=== PATIENT | female | born 1980 | race Caucasian/White ===

== ENCOUNTER 2021-11-02 08:26 | Outpatient (CLI) | payer BC, MEDICAID, SELFPAY ==
[2021-11-02 08:34] LABS: Ur HCG Qualitative* Negative (Negative)
[2021-11-02 15:32] LABS: Clue Cells <20% Clue Cells Seen (None Seen); Trichomonas No Trichomonas Seen (None Seen); Yeast No Yeast Seen (None Seen)
--- OUTSIDE RECORDS SUMMARY | 2021-11-09 01:12 | XMS_ITS | Continuity of Care Document ---
:1980 Author Organization [facility] Address [address] [place] [address] Phone Care Team Providers Name Role Phone Will Audi AKERS Unavailable Unavailable Allergies, Adverse Reactions, Alerts Substance Reaction Status Criticality morphine Vomiting Active No Information latex BlisterRash Active No Information piroxicam Active No Information naproxen Active No Information Medications Medication Instructions Dosage Effective Dates Status Comment s (start - stop) Detrol LA 4 mg take 1 capsule by 4 MG - Active capsule,extended release oral route every day Seroquel 25 mg tablet take 1 tablet by 25 MG - Active oral route every day as needed duloxetine 30 mg take 1 capsule by 30 MG - Active capsule,delayed release oral route every day duloxetine 60 mg take 1 capsule by 60 MG - Active capsule,delayed release oral route every day Seroquel 300 mg tablet take 1 tablet by 300 MG - Active oral route every day meloxicam 15 mg tablet take 1 tablet by 15 MG - Active oral route 2 times every day gabapentin 600 mg tablet take 2 tablet by 1200 MG - Activ e oral route 3 times every day gemfibrozil 600 mg take 1 tablet by 600 MG - Active tablet oral route 2 times every day 30 minutes before morning and evening meal pantoprazole 40 mg take 1 tablet by 40 MG - Active tablet,delayed release oral route every day prochlorperazine maleate take 1 tablet by 10 MG - Activ e 10 mg tablet oral route 3 times every day naltrexone 50 mg tablet take 1 tablet by 50 MG - Active oral route every day spironolactone 50 mg take 1 tablet by 50 MG - Active tablet oral route every day prazosin 1 mg capsule take 2 capsule by 2 MG - Active oral route every day Mirena 20 mcg/24 hours - Active (6 yrs) 52 mg intrauterine device Procedures Procedure Date OFFICE/OUTPATIENT VISIT, EST OFFICE/OUTPATIENT VISIT, NEW Advance Directives Directive Yes / No Effective Date File Name No Information Encounters Encounter Practice Location Reason(s) Diagnoses Date Provider Provide rs Description For Visit Copied on Encounter [facility] No Information [facility] Audi. Pain [place] [address] [facility], [place], [address] [facility] [place], [place], [place], [place], [id number] [place], , [place]. [id number] tel: , [place] [phone] tel: [phone] OFFICE/OUTPA [facility] Back Pain FibromyalgiaOther Sep-2 OBr ien Referring TIENT VISIT, [facility] (chief intervertebral disc Tra vis. Provider: EST [facility] [place] complaint) displacement, [address] [facility], [place], [facility], lumbar [place], Will J, [address] [facility] [address] [facility] [place], disorder, [place], [place], [place], [place], unspecifiedAlcohol [phone] [place], abuse, [place] , [place]. [place], [place], [id number] remissionOther long tel: [phone] , [place] term (current) drug [id number] . tel: therapy tel:[phone] [facility] No Information Sep- Burd[facility] Josh. [facility] [place] [address] [facility], [place], [address] [facility] [place], [place], [place], [place], [id number] [place], , [place]. [id number] tel: , [place] [phone] tel: [phone] OFFICE/OUTPA [facility] Back Pain FibromyalgiaOther Sep-0 OBr ien Referring TIENT VISIT, [facility] (chief intervertebral disc Tra vis. Provider: NEW [facility] [place] complaint) displacement, 1 [address] [facility], [place], [facility] by [facility], lumbar [place], Will J, [address] [facility] [place] [address] [facility] [place], disorder, [place], [place], [place], [place], unspecifiedAlcohol [phone] [place], abuse, [place] , [place]. [place], [place], [phone] remissionOther long tel: [phone] , term (current) drug [id number] . tel: therapy tel: [phone] Family History Family Member Type Diagnosis Age At Onset Mother Problem Bulging discs/back surgery Payers Payer name Insurance type Covered libertarian ID Authorization(s ) [facility] [id number] Social History Type Description Quantity Date Captured Comments Sex Female Smoking Status No Information Chief Complaint And Reason For Visit No Information Reason For Referral Reason For Referral No Information Plan Of Treatment Date Type Action Status Goal Height. Due on due Goal Review Allergy List. Due on due Goal Tobacco Use. Due on due Goal PHQ-9. Due on due Goal Weight. Due on due Goal Medication Reconciliation. Due o n due Goal Update Social History. Due on due Goal Height. Due on due Goal Review Allergy List. Due on due Goal Tobacco Use. Due on due Goal PHQ-9. Due on due Goal Weight. Due on due Goal Medication Reconciliation. Due o n due Goal Update Social History. Due on due Goal Height. Due on due Goal Review Allergy List. Due on due Goal Tobacco Use. Due on due Goal PHQ-9. Due on due Goal Weight. Due on due Goal Medication Reconciliation. Due o n due Goal Update Social History. Due on Se due History Of Present Illness Encounter Date Complaint History Of Present I llness Back Pain (comments) Mrs. Plummer is a p leasant 40 y/o female who presents for follow up after initial consult regarding chronic wi despread pain in the setting of a complex psychia tric hx that includes bipolar, depression, BPD, and PTSD with multiple suicide attempts. Sh jonah also has a hx of EtOH abuse, but has been sober since most recent inpatient treatment 6 months ago. She states that her pain is worse si nce last OV as she increases her activity at PT. She details that she goes to PT 2x/week. She cont inues to experience low back pain radiating down the posterior left thigh to the foot. She contin ues to endorse some possible incontinence symptom s, but MRI recently completed does not show any ev idence of cauda equina syndrome. Continues to utilize skin care specialist. She is interested in pursuing any treatment option that can hel p ease some of the painShe states she previousl y consulted with rheumatology but did not have a g ood experience. She reports she has previously b jaironn advised to complete the pain rehab program a t [facility] by another provider.She details she continues to be managed on Duloxetine and co ntinues to wean off Gabapentin d/t fatig ue. Continues to take meloxicam despite he r hx of ulcers. She also inquires about any m edication suggestions to help with sleeping at [facility].No other concerns today. Back Pain Severity level is 9. The problem is stable. It occurs persistently. The patient describes the pain as an ache, bur ranjit, sharp and tingling. Symptoms are aggrava blanca by ascending stairs, bending, changing po sitions, daily activities, descending stairs, j umping, lifting, lying/rest, pushing, running, si tting, standing, twisting, walking and movement .The patient denies relieving factors. Back Pain Severity level is 9. Duration: chronic. The problem is worsening . It occurs persistently. Location of pain is lower back and legs.The patient describes th e pain as an ache, sharp, throbbing and tingli ng. Symptoms are aggravated by bending, daily ac tivities, lifting, running, standing, twisting a nd walking.The patient denies relieving factors. Back Pain (comments) Mrs. Plummer is a p leasant 40 y/o female who presents for chronic widespread pain in the setting of a complex psychiatric hx that includes bipolar, depression, BPD, and PTSD with multiple suicide attempts. e also has a hx of EtOH abuse, but has been sober since most recent inpatient treatment 6 months ago. Describes a long hx of chronic p ain dating back to a JRA dx as a child, which le d to a left ankle fusion in 1999. She no longer follows w/rheumatology. Also has a hx of gastric ulcers e/b alcohol and NSAID use. Over the years, the pain spread to include joints throughout e body. She is s/p many steroid injections i n the knees, hips, and ankles w/variable benefit. More recently, she began to have low back pain r adiating down the posterior thigh to the left fo ot. Describes some possible incontinence symptom s, although she reportedly had an MRI in July that was reassuring (report not available). She starts PT this week. Currently doing chir opractic care and uses a jacuzzi at home. Cer tified for cannabis, but too expensive.She was ho nest about her alcohol issues. Started ramez gomez to self medicate for pain. S/p 3 inpatien t hospitalizations, most recently in July. C urrently on duloxetine. Weaning gabapentin d /t fatigue. Taking meloxicam despite her hx of ul cers. Functional Status Date Functional Assessment No Information Instructions Date Instruction Additional Informati on No Information Assessments Type Assessment Date No Information Patient Care Teams Name Effective Dates (start - stop) Status M embers No Information
--- OUTSIDE RECORDS SUMMARY | 2021-11-09 01:12 | XMS_ITS | Continuity of Care Document ---
:1980 Author Organization [facility] Address [address] [address] [place] [address] Phone Care Team Providers Name Role Phone Bridgette Santa Unavailable Unavailable Allergies, Adverse Reactions, Alerts Substance Reaction Status Criticality naproxen HivesHives Active No Information adhesive tape Rash Active No Information naproxen HivesHives Active No Information morphine Active No Information latex Active No Information naproxen Active No Information Medications Medication Instructions Dosage Effective Dates Status Comment s (start - stop) pantoprazole 40 mg take 1 tablet by 40 MG - Active tablet,delayed release oral route 2 times every day naltrexone 50 mg tablet take 1 tablet by 50 MG - Act flor oral route every day tizanidine 4 mg capsule take 1 capsule by 4 MG - Ac tive oral route every day as needed propranolol 10 mg tablet take 2 tablet by 20 MG - Ac tive oral route 3 times every day meloxicam 15 mg tablet take 1 tablet by 15 MG - Acti ve oral route every day Drizalma Sprinkle 60 mg take 1 capsule by 60 MG - Ac tive capsule,delayed release oral route every day spironolactone 100 mg take 1 tablet by 100 MG - Activ e tablet oral route every day Lyrica 150 mg capsule take 1 capsule by 150 MG - Acti ve oral route 2 times every day Lamictal 25 mg tablet take 1 tablet by 25 MG - Activ e oral route 2 times every day gemfibrozil 600 mg tablet take 1 tablet by 600 MG - A ctive oral route 2 times every day 30 minutes before morning and evening meal prochlorperazine maleate take 1 tablet by 10 MG - Ac tive 10 mg tablet oral route every day as needed Risperdal 2 mg tablet take 1 tablet by 2 MG - Activ e oral route 2 times every day Enbrel 25 mg (1 mL) inject 1 milliliter 25 MG - Acti ve subcutaneous powder for by subcutaneous solution route 2 times every week 72-96 hours apart famotidine 20 mg tablet take 1 tablet by - Act flor oral route 2 times a day as needed gemfibrozil 600 mg tablet take 1 tablet by 600 MG - A ctive oral route 2 times every day 30 minutes before morning and evening meal Procedures Procedure Date Established Level 4 Ugi Endo; W/bx 1/mx Level Iv-surg Path Gross/micro Established Level 3 or 15-24 min Colonoscopy Flex; W/remov Les- Colonoscopy Flex; W/bx 1/mx Level Iv-surg Path Gross/micro Established Level 3 or 15-24 min Ugi Endo; W/bx 1/mx Level Iv-surg Path Gross/micro New Level 3 or 30-44 min Advance Directives Directive Yes / No Effective Date File Name No Information Encounters Encounter Practice Location Reason(s) Diagnoses Date Provider Provide rs Description For Visit Copied on Encounter CHRIS Ba No Information Gregory PAC [facility] Bridgette. [facility] [facility] 2 [facility], [address], [place] [address], [facility] [place], , [place], [place], [id number], [id number], [place]. tel:[phone] tel:[phone] Established [facility] Acute [place] [facility] Referrin g Level 4 [facility] [place] Symptoms diarrheaGERD Bridgette. 3001 Provi amarilis: Health PA, Clinic or without 2 [place] Referral [address] [place]. [address], (chief [place] [address], [place] complaint) [place], [place], [place], [id number], [id number], [place]. tel: tel:[phone] 1145 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 3001 Provider: Health PA, Endoscopy 2 [facility] [address] [place], [place], [address], [place] [address], [place] [facility] [place], [place], [place], [address], [id number], [id number], [place], [place], tel:+ tel:[phone] . tel:[phone] [facility] GI Gastritis Mar-0 Alexa Calloway. Referri ng Dig[facility] Symptoms determined by 3001 [facility] rovider: Health PA, Endoscopy or endoscopyGastri [address] [place], Willy [address] [place] [facility] Concerns tis, [address], [place] [address], (chief unspecified, [place] Leopoldo, [address] [place] complaint) without [place], [address], [place], [place], bleeding [id number], [place] [id number], [place]. , [place], [place] tel:[phone]. tel:[phone] tel:[phone] [id number] [facility] No Information Mar-0 [facility] o PA Kristel. [facility], [address] [place], [address], [place] [address], [place], , [place], [place], [id number], [id number], [place]. tel: tel:[phone] [facility] Gastroesophagea Mar-0 [facility] l reflux Bridgette. 3001 Health PA, disease, 2 [place] [address] [place], [address], whether [address], [place] esophagitis [place], [place], [place], [place], [id number], [id number], [place]. tel: tel:[phone] [facility] [place] Diarrhea, Fe- oJy [facility] unspecified 3 Omar. [facility], [address] [place], [address], [place] [address], [place], [place], [place], [id number], [id number], [place]. tel: tel:[phone] [facility] [place] Diarrhea, May- [place] [facility] unspecified Bridgette. 3001 Health PA, [address] [facility] [place], [address], [place] [address], [place], [place], [place], [id number], [id number], [place]. tel: [phone] [facility] [place] Irritable bowel Fe-0 [place] [facility] syndrome with - Bridgette. 3001 Health PA, diarrhea [address] [place], [address], [place] [address], [place], [place], [place], [place], [id number], [id number], [place]. tel: tel:[phone] [facility] Diarrhea, Nov- Mark [facility] unspecified Raisa. Health PA, Center [address] [place], [address], [place] [address], [place], [place], [place], [id number], [id number], [place]. tel: tel:[phone] Established [facility] [place] Comment Diarrhea, Gregory PAC Refe rring Level 3 or [facility] Clinic (chief unspecifiedGene Bridgette. 3001 Provider: 15-24 min Health PA, complaint) ralized 0 [place] [facility] PO [address] [place]. [address], [place] [address], [place], [place], [place], [id number], [id number], [place]. tel: [phone] [facility] [place] [facility] Epigastric Sep-1 Mark Bryan g Dig[facility]ive Endoscopy painDiarrhea, Raisa. Pro vider: Health PA, Center unspecifiedColo 0 3001 Rohit Referral [address] [place]. [address], polypsDiverticu [place] [address], [place] losis of colon [place], , [place], without [place], [id number], diverticulitisB [id number], [place] enign neoplasm [place]. tel: of cecumBenign tel: [phone] neoplasm of 1145 ascending colon Established [facility] [place] Comment Epigastric Sep-0 [place] [facility] Ref erring Level 3 or [facility]ive [facility] (chief painDiarrhea, Bridgette. 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, [address]. tel: tel: [phone] [facility] [place] [facility] Epigastric Aug-2 Mark herrera [facility] painNausea with Raisa. P rovider: Health [place], Center vomiting, 0 3001 Rohit Refer ral [address] [place] [address], onal history of [address], [place] peptic ulcer [place], , [place], diseaseDisease [place], [id number], of stomach and [id number], [place] duodenum, [place]. tel: unspecifiedEpig tel: [phone] astric 1145 painNausea with vomiting, unspecified New Level 3 [facility] [place] GI Epigastric Aug-1 Gregory PAC Ref erring or 30-44 min [facility] Symptoms abdominal Bridgette. 3001 Pro vider: Health PA, or painNon-intract 0 Rohit Refe rral PO Box Concerns [place]. [address], (chief with nausea, [place] [address], [place] complaint) unspecified [place], [place], [place], [place], [id number], typeHistory of [id number], [place] peptic ulcer [place]. tel: disease tel:[phone] [facility] No Information Joy [facility] Omar. Health [facility], 0 [address] [place], [address], [place] [address], [place], [place], [place], [place], [id number], [id number], [place]. tel: tel:[phone] Family History Family Member Type Diagnosis Age At Onset Father Problem (finding) malignant neoplasm of pharynx Mother Problem (finding) Colon polyps Father Problem (finding) malignant neoplasm of thyroid Mother Problem (finding) gallbladder disease Mother Problem (finding) cancer of colon Mother Problem (finding) malignant neoplasm of breast i n first degree relative Father Problem (finding) Thyroid disorder Immunizations Vaccine Date Status Comments tetanus toxoid, reduced administered Note: [facility] bi-directional diphtheria toxoid, and acellular interface ; Source: Other pertussis vaccine, adsorbed Cara stry Afluria Qd administered Note: [facility] bi-directional interface ; Sour ce: Other Registry Fluzone Quad 6mo or older administered Note: [facility] bi-directional interface ; Sour ce: Other Registry influenza virus vaccine, administered Note: M [facility]IC bi-directional unspecified formulation interfac e ; Source: Other Registry Afluria Qd administered Note: [facility] bi-directional interface ; Sour ce: Other Registry Fluzone Quad 6mo or older administered Note: [facility] bi-directional interface ; Sour ce: Other Registry Afluria Qd administered Note: [facility] bi-directional interface ; Sour ce: Other Registry Fluzone Quad 6mo or older administered Note: [facility] bi-directional interface ; Sour ce: Other Registry Afluria Qd administered Note: [facility] bi-directional interface ; Sour ce: Other Registry Fluzone Quad 6mo or older administered Note: [facility] bi-directional interface ; Sour ce: Other Registry Pneumovax 23 administered Note: [facility] bi-di rectional interface ; Sour ce: Other Registry Influenza, seasonal, injectable, administered Note: [facility] bi-directional preservative free interface ; So urce: Other Registry Influenza, seasonal, injectable, administered Note: [facility] bi-directional preservative free interface ; So urce: Other Registry Afluria Qd administered Note: [facility] bi-directional interface ; Sour ce: Other Registry Novel [id number], all administered Not e: [facility] bi-directional formulations interface ; Sour ce: Other Registry tetanus toxoid, reduced administered Note: [facility] bi-directional diphtheria toxoid, and acellular interface ; Source: Other pertussis vaccine, adsorbed Cara stry Influenza, seasonal, injectable administered Note: [facility] bi-directional interface ; Sour ce: Other Registry human papilloma virus vaccine, administered N ote: [facility] bi-directional quadrivalent interface ; Sour ce: Other Registry human papilloma virus vaccine, administered N ote: [facility] bi-directional quadrivalent interface ; Sour ce: Other Registry measles, mumps and rubella virus administered Note: [facility] bi-directional vaccine interface ; Sour ce: Other Registry Payers Payer name Insurance type Covered alliance party ID Authorization(s ) [facility] [id number] Social History Type Description Quantity Date Captured Comments Alcohol Use Details Unknown Caffeine Use Details Unknown Tobacco Use Status Smoking Status No Information Sex Female Chief Complaint And Reason For Visit No Information Reason For Referral Reason For Referral No Information Plan Of Treatment Date Type Action Status Referral Ordered: ordered Ova + Parasites Appointment date/timeframe: 06/01/2020 Referral Ordered: ordered Stool Test Panel, Comprehensive Appointment date/timeframe: -today Referral Ordered: ordered Xray Abdomen; Limited (AP View O nly) (KUB) Appointment date/timeframe: 01/23/2020 Referral Ordered: ordered Celiac: TTG IgA + Total IgA Appointment date/timeframe: 12/09/2019 Referral Ordered: ordered Colonoscopy Appointment date/timeframe: 12/16/2019 Referral Ordered: ordered EGD Appointment date/timeframe: 11/21/2019 History Of Present Illness Encounter Date Complaint History Of Present I llness GI Symptoms or Concerns Marlin is a 41-y ear-old female who I have seen in the past for GERD who I am seeing today the virtual visit for ne w issues with diarrhea and ongoing GERD like sy mptoms. 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 She was t reated with pantoprazole which was increased to twice daily dosing. More recently, she w as having breakthrough symptoms, and was sw itched to omeprazole 40 mg twice daily and famo tidine was recommended at bedtime. Recent EGD 06/08/2021 showed a normal esophagus. Biopsies of the stomach and duodenum were normal . She has not seen a significant improvem ent in her symptoms despite the omeprazo le. She felt the pantoprazole actuall y worked better for her. Since the upper endo scopy, she did 1 month in residential [facility] t treatment for alcohol. She will obtain 90 d ays sober next week. Despite quitting alc ohol, she has ongoing reflux symptoms. She also reports onset of loose watery s GI Symptoms or Concerns Comment Ms. Plummer is a 39- year-old female with ongoing complaints o f abdominal pain, change in bowel habits, and weight loss. She was seen today via televisit to which she consented. She was the only per son present on the call and was in a private place.She was initially seen in November 2019, due to a history of gastric and esophage al ulcers which have been diagnosed in 2017, w hen she was drinking heavily at that time . Despite taking pantoprazole 40 mg o nce daily, she was having severe abdominal terell n with nausea and occasional vomiting. ED evaluation had been unremarkable. An upp er endoscopy showed some erythema in her stom ach, but was otherwise unremarkable. Biopsi es were consistent with reactive gastropathy , negative for H. pylori. Her pantoprazole was increased to 40 mg twice daily and we added f amotidine 20 to 40 mg at bedtime or as needed . Her upper abdominal pain has improved, but sh e continued to have some lower abdominal cram ping and changes in bowel habits. She then und Comment Marlin Plummer is a 39-year-old female who I am seeing in followu p today for upper abdominal pain, cruz ge in bowel habits, and weight loss. Our vis it today is conducted via virtual visit. She v erbally consented to the visit and confirms s he was the only present on the call. She was in a private place.She has a history of gastric a nd esophageal ulcers diagnosed in 2018. S he was heavily drinking at that time, which was the suspected cause of her ulcers. She has been sober for almost 1 year, and has been t aking pantoprazole 40 mg once daily for some time. However, this summer, she had epis odes of severe upper abdominal pain as we ll as nausea and occasional vomiting. She was seen in the ER on 11/14/2019, CBC, LFT s, lipase, and CT scan were unremarkable. H er pantoprazole was increased and Carafa te was added. She saw an improvement in her s ymptoms. She then underwent an upper e ndoscopy on 11/21/2019, which showed some er ythema in the stomach, but was otherwise unrema rkable. Bio GI Symptoms or Concerns Ms. Plummer is a 39-year-old female who we were asked to see in consultation by ER physicians for sever e abdominal pain. Office visit was performed via virtual visit to which she verbally consent ed. She was the only person on the call.S he has a history of gastric and esophage al ulcers which were diagnosed in [address] she visited the ER with severe upper ab dominal pain and heartburn. She under went an upper endoscopy with an outside phys ician, she believes, Dr. Delgado, and was told t hat her ulcers were likely due to alcohol use. She is a recovering alcoholic, and at th at time had been drinking daily for about 4 ye ars. She was told to quit drinking and was sta rted on Protonix 40 mg daily as well as Myl anta. She quit drinking about 1 year ago and is almost 1 year sober. She continues on the Protonix 40 mg daily and overall has been fee ling better. Unfortunately, she r ecently had a recurrence of severe upper abdo mikaela pain over the last 2 weeks. She reports n ausea and occasion Functional Status Date Functional Assessment No Information Instructions Date Instruction Additional Informati on 1. Stool studies to look for infection. Related to Acute diarrhea We can send these to your [facility] office. If your insurance does not cover or if your clinic does not have the comprehensive stool test, then we will have to do the test separately. 2. Stop omeprazole 3. Start pantoprazole 40 mg twice daily, 30 minutes before breakfast and dinner. 4. Follow-up with me in 2-3 months. Our office will be in contact with you regarding the results of your above testing. 5. You can message me via the patient portal or call [phone] extension [phone] with questions, worsening symptoms. 1. Ok to restart colace2. Abdominal xray Related to Diarrhea, unspecified to assess stool burden3. Continue pantoprazole and hyoscyamine4. I will call you with results. Colon Cancer Prevention Related to Epiga stric pain High Fiber Diet Related to Epigastri c pain Diverticulosis/Diverticulitis Related to Epigastric pain Colon Polyps Related to Epigastri c pain Assessments Type Assessment Date No Information Patient Care Teams Name Effective Dates (start - stop) Status M santino No Information
--- OUTSIDE RECORDS SUMMARY | 2021-11-09 01:17 | XMS_ITS ---
:1980 Author Care Team Providers Name Role Phone Manish Mendez Primary Care Provider Unavailable Allergies Code Code System Name Reaction Severity Status Onset 7052 RxNorm Morphine ? ? Active ? 7258 RxNorm Naproxen ? ? Active ? 9853 RxNorm Sodium ? ? Active ? Medications Name Status Start Date Stop Date ? ? acamprosate 333 mg tablet,delayed release Active ? Not available aripiprazole 5 mg tablet Active ? Not anabella ilable TAKE ONE-HALF TABLET BY MOUTH EVERY DAY azithromycin 250 mg tablet Active ? Not a vailable TAKE TWO TABLETS BY MOUTH ONE DOSE O N THE FIRST DAY, THEN TAKE ONE DAILY THEREAFTER. carbamazepine ER 100 mg tablet,extended release,12 hr Active ? Not available TAKE ONE TABLET BY MOUTH TWICE A DAY carbamazepine ER 200 mg tablet,extended release,12 hr Active ? Not available TAKE ONE TABLET BY MOUTH IN THE MORNING AND TWO TABLETS AT BEDT MOISE cephalexin 500 mg capsule Active ? Not av ailable TAKE 1 CAPSULE BY MOUTH FOUR TIMES DAILY FOR ACUTE OPIOID THERA PY DAYS diazepam 10 mg tablet Active ? Not availa ble TK PER [facility] PROTOCOL divalproex Active ? Not available divalproex ER 250 mg tablet,extended release 24 hr Active ? Not available divalproex ER 500 mg tablet,extended release 24 hr Active ? Not available fluconazole 150 mg tablet Active ? Not av ailable TAKE ONE TABLET TODAY AND ONE TABLET IN FOUR DAYS gabapentin Active ? Not available gabapentin 300 mg capsule Active ? Not av ailable TAKE ONE TO TWO CAPSULES BY MOUTH THREE TIMES A DAY gabapentin 600 mg tablet Active ? Not anabella ilable gabapentin 800 mg tablet Active ? Not anabella ilable TAKE ONE TABLET BY MOUTH EVERY MORNING, ONE TABLET MIDDAY AND TAKE ONE AND ONE- HALF TABLETS BY MOUTH AT BEDTIME gemfibrozil 600 mg tablet Active ? Not av ailable TAKE ONE TABLET BY MOUTH TWICE A DAY hydroxyzine HCl Active ? Not available hydroxyzine HCl 25 mg tablet Active ? Not available TAKE ONE HALF TO ONE TABLET BY MOUTH TWICE DAILY NEEDED FOR ANXIETY hyoscyamine ER 0.375 mg tablet,extended release,12 hr Active ? Not available TAKE ONE TABLET BY MOUTH EVERY 12 HOURS lamotrigine 200 mg tablet Active ? Not av ailable lithium carbonate ER 300 mg tablet,extended release Active ? Not available TAKE ONE TABLET BY MOUTH EVERY MORNING AND TAKE THREE TABLETS BY MOUTH AT BEDTIME loperamide Active ? Not available lorazepam 1 mg tablet Active ? Not availa ble TAKE ONE TABLET BY MOUTH THREE TIMES A DAY NEEDED melatonin Active ? Not available metronidazole Active ? Not available metronidazole 0.75 % (37.5 mg/5 gram) vaginal gel Active ? Not available metronidazole 0.75 % topical gel Active ? Not available metronidazole 1 % topical gel Active ? No t available metronidazole 500 mg tablet Active ? Not available TAKE ONE TABLET BY MOUTH TWICE A DAY FO R 7 DAYS - DO NOT DRINK ALCOHOL WHILE TAKING THIS MEDICINE olanzapine 10 mg tablet Active ? Not avai lable TAKE ONE TABLET BY MOUTH EVERY DAY olanzapine 15 mg tablet Active ? Not avai lable TAKE ONE TABLET BY MOUTH AT BEDTIME olanzapine 20 mg tablet Active ? Not avai lable TAKE ONE TABLET BY MOUTH AT BEDTIME omeprazole Active ? Not available omeprazole 20 mg capsule,delayed release Active ? Not available ondansetron 4 mg disintegrating tablet Active ? Not available PLACE ONE TABLET ON THE TONGUE EVERY 8 HOURS IF NEEDED FOR NAUS EA / VOMITING ondansetron 8 mg disintegrating tablet Active ? Not available DISSOLVE ONE TABLET ON THE TONGUE THREE TIMES A DAY NEEDED FOR NAUSEA / VOMITING oxycodone 5 mg tablet Active ? Not availa ble pantoprazole 40 mg tablet,delayed release Active ? Not available TAKE ONE TABLET BY MOUTH TWICE A DAY BEFORE MEALS propranolol 10 mg tablet Active ? Not anabella ilable TAKE ONE-HALF TO ONE TABLET BY MOUTH ONCE DAILY NEEDED quetiapine 50 mg tablet Active ? Not avai lable TAKE ONE TO TWO TABLETS BY MOUTH AT BEDTIME risperidone Active ? Not available risperidone 0.5 mg tablet Active ? Not av ailable sucralfate 1 gram tablet Active ? Not anabella ilable TAKE ONE TABLET BY MOUTH FOUR TIMES A D AY ON AN EMPTY STOMACH ONE HOUR BEFORE MEALS AND AT BEDTIME tramadol 50 mg tablet Active ? Not availa ble TAKE ONE TABLET BY MOUTH EVERY 6 HOURS NEEDED FOR PAIN FOR U P TO 5 DAYS. trazodone 100 mg tablet Active ? Not avai lable trazodone 50 mg tablet Active ? Not avail able Zofran Active ? Not available Problems No Known Problems Procedures None recorded. Results Lab Results None recorded. Past Encounters None recorded. Social History None recorded. Vaccine List None recorded. Plan of Care Reminders Provider Appointments None recorded. ? ? Lab None recorded. ? ? Referral None recorded. ? ? Procedures None recorded. ? ? Surgeries None recorded. ? ? Imaging None recorded. ? ? Vitals Blood Pressure 138/46 mm[Hg]
--- OUTSIDE RECORDS SUMMARY | 2021-11-09 01:17 | XMS_ITS | Clinical Summary ---
:1980 Author [facility] Address [address] [place] [address] Care Team Providers Name Role Phone Needs Pcp, Assignment Primary Care Provider Source Comments You are receiving this document as you are listed as the primary care provider,follow-up provider, or the patient has been referred to you for consultation.This is in compliance with the Medicare and Medicaid EHR Incentive Program,which states Providers who transition their patient to another setting of careor provider of care or refers their patient to another provider of care shouldprovide summarycare record for each transition of care or referral. [place] Allergies Active Allergy Reactions Severity Noted Date Comments Eszopiclone Nausea And Vomiting 05/04/2014 Piroxicam Hives High 05/20/2020 Latex Hives High 05/20/2020 Morphine Unknown 05/20/2020 Naproxen Unknown 05/20/2020 Medications Medication Sig Dispensed Refills Start Date End Date Status acamprosate (CAMPRAL) 0 03/21/2020 Active 333 MG tablet divalproex (DEPAKOTE Take 1,000 mg by 0 05/17/2020 Active ER) 500 MG 24 hour mouth two times release tablet a day. escitalopram (LEXAPRO) TAKE ONE-HALF 0 05/17/2020 Active 10 MG tablet TABLET BY MOUTH EVERY DAY FOR 6 DAYS THEN TAKE ONE TABLET BY MOUTH EVERY DAY gabapentin (NEURONTIN) Take 1,200 mg by 0 05/17/2020 Active 600 MG tablet mouth three times a day. gemfibrozil (LOPID) 600 0 05/06/2020 Active MG tablet hydrOXYzine HCl Take 25 mg by 0 04/04/2020 Active (ATARAX) 25 MG tablet mouth two times daily as needed. hyoscyamine (LEVBID) Take 375 mcg by 0 05/05/2020 Active 0.375 MG 12 hour mouth every 12 release tablet hours. metroNIDAZOLE 0 02/24/2020 Activ e (METROGEL) 0.75 % gel minocycline (MINOCIN) Take 100 mg by 0 05/17/2020 Active 100 MG capsule mouth two times a day. omeprazole (PRILOSEC) 0 03/06/2020 Active 20 MG capsule ondansetron DISSOLVE ONE 0 04/29/2020 Acti ve (ZOFRAN-ODT) 8 MG TABLET ON THE disintegrating tablet TONGUE THREE TIMES A DAY NEEDED FOR NAUSEA / VOMITING pantoprazole (PROTONIX) Take 40 mg by 0 05/05/2020 Active 40 MG tablet mouth two times a day before meals. XIFAXAN 550 MG tablet 0 05/10/2020 Active risperiDONE (RISPERDAL) Take 1 mg by 0 05/17/2020 Active 1 MG tablet mouth daily. risperiDONE (RISPERDAL) Take 2 mg by 0 05/17/2020 Active 2 MG tablet mouth every evening. spironolactone Take 50 mg by 0 05/17/2020 Active (ALDACTONE) 50 MG mouth daily. tablet celecoxib (CELEBREX) Take 1 Capsule 60 Capsule 5 05/20/2020 Active 200 MG by mouth two capsuleIndications: times daily as Rheumatoid arthritis, needed for Pain. involving unspecified site, unspecified whether rheumatoid factor present (HRC), Arthralgia, unspecified joint, Chronic pain syndrome Active Problems Problem Noted Date Bipolar disorder with current episode depressed 2019 Obesity (BMI 30-39.9) 05/07/2019 Hypertriglyceridemia 04/28/2019 Nicotine dependence, cigarettes, with other nicotine-i nduced disorders 05/10/2018 Alcoholic 02/10/2018 Dyssomnia 12/18/2017 Hidradenitis suppurativa 06/06/2017 Chronic post-traumatic stress disorder (PTSD) 09/20/19 16 Migraine headache 09/20/2015 Tobacco use disorder 02/28/2015 Anorexia nervosa, restricting type 08/28/2013 Bipolar affective disorder, rapid cycling 08/28/2013 Generalized anxiety disorder 08/28/2013 Social anxiety disorder 08/28/2013 Controlled substance agreement signed 05/29/2013 Borderline personality disorder 11/01/2011 Raynaud's disease 01/23/2011 IUD (intrauterine device) in place 08/25/2010 Fibromyalgia 08/20/2009 GERD (gastroesophageal reflux disease) 02/16/2009 Allergic rhinitis 04/16/2006 Overview: Environmental Allergies Rheumatoid arthritis 05/03/1985 Immunizations Name Administration Dates Next Due 4vHPV (Gardasil) 06/21/2006, 03/08/2006 DTaP 11/03/2008 Flu Vac (3+ yrs) 01/30/2013, 12/25/2011, 03/06/2011, 03/25/2008 Flu Vac Preserv Free (3+yrs) 02/04/2010 [id number] 02/26/2009 Influenza [id number] 02/26/2009 Influenza IIV4 (Quadrivalent) 0.5mL 01/29/2019, 12/18/2017 (63702) Influenza, Unspecified Formulation 12/31/2017, 12/18/2016, 1 05/09/2015, 03/06/2011, 03/25/2008 MMR 04/02/1994 PPSV23 (Pneumovax) 12/01/2012 Td (7+ yrs) 07/21/1997 Tdap 09/01/2019, 11/03/2008 Social History Tobacco Use Types Packs/Day Years Used Date Smoking Tobacco: Every Day Sex Assigned at Date Recorded Not on file Last Filed Vital Signs Vital Sign Reading Time Taken Comments Blood Pressure 127/72 05/20/2020 10:45 AM [employer] Pulse 83 05/20/2020 10:45 AM [employer] Temperature 37.1 ??C (98.8 ??F) 05/20/2020 10:45 AM [employer] Respiratory Rate - - Oxygen Saturation - - Inhaled Oxygen Concentration - - Weight 79.8 kg (176 lb) 05/20/2020 10:45 AM [employer] Height 167.6 cm (5' 6) 05/20/2020 10:45 AM [employer] Body Mass Index 28.41 05/20/2020 10:45 AM [employer] Plan of Treatment Health Maintenance Due Date Last Done Comments Cervical Cancer Screening 1980 Due Hep C Screening (Preventive 1980 Services) HepB (1) 1980 COVID-19 Vaccine (#1) 1980 Adult Preventive Visit 01/28/2000 Pneumococcal (2 - PCV) 12/01/2013 12/01/2012 Influenza (#1) 2021 01/29/2019, 12/31/2017, 12/18/2017, Additional history exists DTaP/Tdap/Td (4 - Tdap) 08/31/2029 09/01/2019, 11/03/2008, 11/03/2008, Additional history exists Zoster/Shingles (1 of 2) 01/28/2032 HPV Vaccine Aged Out 06/21/2006, 06/21/2006, No longe r eligible 03/08/2006, Additional based on patient's age history exists to complete this topic HIV Screening (Preventive Completed 07/12/2021 Services) HepA Aged Out No longer eligib le based on patient 's age to complete this topic Hib Aged Out No longer eligib le based on patient 's age to complete this topic IPV (Polio) Aged Out No longer eligib le based on patient 's age to complete this topic MCV4 Aged Out No longer eligib le based on patient 's age to complete this topic Insurance Payer Benefit Plan / Subscriber ID Effective Dates Phone Addre ss Type Group BCBS BCBS MD [id number] 2016-Present [address] [address] [place] [address] [address] FRANTZ Milner [address] Care Teams Stitcher Set Up Operator Automatic Relationship Specialty Start Date End Date Needs Pcp, Assignment PCP - General 05/20/20 [place] [address]
== END 2021-11-02 08:27 | disposition home or self-care (01) ==
PROVIDERS: PCP Family Medicine; Visit Provider Family Medicine
DX: N91.2 Amenorrhea, unspecified (principal)
CPT/HCPCS: 81025; 87210

== ENCOUNTER 2021-11-23 08:35 | Outpatient (CLI) | payer BC, MEDICAID, SELFPAY ==
--- OUTSIDE RECORDS SUMMARY | 2021-11-23 10:32 | XMS_ITS | Encounter Summary ---
:1980 Author Organization [facility] Address [address] [place] [address] Care Team Providers Name Role Phone Zoë Nick APRN, C.N.P. Primary Care Provider [phone] Reason for Visit Reason Comments Follow-up Outpatient (Routine) - Closed Specialty Diagnoses / Procedures Referred By Contact Refer red To Contact Obstetrics and Diagnoses PAR Rebecca Mccullough APRN, [facility] C.N.P., M.S.N. [address] [address] Referral ID Status Reason Start Date Expiration Date Visits Requ ested Visits Authorized [id number] Closed 10/16/2019 10/15/2020 1 1 Encounter Details Date Type Department Care Team Description 10/24/2019 Office Visit Department of Rebecca Mccullough, Vaginosis Ba cterial Obstetrics and TIM, C.N.P., (Primary Dx) [place]necology in [place] [address] [place] [phone] Social History Tobacco Use Types Packs/Day Years Used Date Smoking Tobacco: Every Day Cigarettes 1 Smokeless Tobacco: Never Alcohol Use Standard Drinks/Week Comments Not Currently 0 (1 standard drink = 0.6 oz pure alcoho l) Alcohol Habits Answer Date Recorded How often do you have a drink containing alcohol? Never 01/29/2019 How many drinks containing alcohol do you have on a typical Not asked day when you are drinking? How often do you have six or more drinks on one occasion? No t asked Comment: Not asked Social Isolation Answer Date Recorded In a typical week, how many times do you More than three jules es a week 01/29/2019 talk on the phone with family, friends, or neighbors? How often do you get together with friends Twice a week 10/24/2019 or relatives? How often do you attend orthodoxy or Never 2019 confucianist services? Do you belong to any clubs or No 01/29/2019 organizations such as orthodoxy groups, unions, fraternal or athletic groups, or school groups? How often do you attend meetings of the Never 10/24/2019 clubs or organizations you belong to? Are you now , , , 10/24/2019 , never or living with a partner? Physical Activity Answer Date Recorded On average, how many days per week do you engage in moderate to 2 days 10/24/2019 strenuous exercise (like walking fast, running, jogging, dancing, swimming, biking, or other activities that cause a light or heavy sweat)? On average, how many minutes do you engage in exercise at th is 40 min 10/24/2019 level? Stress Answer Date Recorded Do you feel stress - tense, restless, nervous, or anxious, o r Very much 10/24/2019 unable to sleep at night because your mind is troubled all the time - these days? Financial Resource Strain Answer Date Recorded How hard is it for you to pay for the very basics like Not v aliyah hard 10/24/2019 food, housing, medical care, and heating? Intimate Partner Violence Answer Date Recorded Within the last year, have you been afraid of your partner o r No 01/29/2019 ex-partner? Within the last year, have you been humiliated or emotionall y No 01/29/2019 abused in other ways by your partner or ex-partner? Within the last year, have you been kicked, hit, slapped, or No 01/29/2019 otherwise physically hurt by your partner or ex-partner? Within the last year, have you been raped or forced to have any No 01/29/2019 kind of sexual activity by your partner or ex-partner? Food Insecurity Answer Date Recorded Within the past 12 months, you worried that your food would Never true 01/29/2019 run out before you got money to buy more. Within the past 12 months, the food you bought just didn't N ever true 10/24/2019 last and you didn't have money to get more. Transportation Needs Answer Date Recorded In the past 12 months, has lack of transportation kept you f rom No 01/29/2019 medical appointments or from getting medications? In the past 12 months, has lack of transportation kept you f rom No 10/24/2019 meetings, work, or getting things needed for daily living? Education Answer Date Recorded What is the highest level of school Associate degree: andreia willams, 10/24/2019 you have completed or the highest technical, or vocational p mark degree you have received? Sex Assigned at Date Recorded Female 12/18/2017 11:00 AM CDT documented as of this encounter Last Filed Vital Signs Vital Sign Reading Time Taken Comments Blood Pressure 106/64 10/24/2019 1:24 PM CDT Pulse - - Temperature - - Respiratory Rate - - Oxygen Saturation - - Inhaled Oxygen Concentration - - Weight 83.8 kg (184 lb 11.9 oz) 10/24/2019 1:24 PM CDT Height - - Body Mass Index 29.82 01/29/2019 12:53 PM CDT documented in this encounter Progress Notes Rebecca Mccullough APRN, C.N.P., M.S.N. - 10/24/2019 1:30 PM CDT SUBJECTIVE CHIEF COMPLAINT Chief Complaint Patient presents with ??? Follow-up REASON FOR VISIT Marlin Plummer is a 39 y.o. female who is seen in follow-up of recurrent bacterial vaginosis. She has completed a course of metronidazole orally once again and is here for test of cure before consideration suppressive therapy. She indicates that her symptoms felt like they had gone away however she has noticed a thick white discharge now with some irritation again. She has also had more clear discharge as well. She tolerated the oral metronidazole without any issues or side effects. CURRENT MEDICATIONS Current Outpatient Medications Medication Sig ??? acamprosate (CAMPRAL) 333 mg EC tablet ??? acetaminophen (TYLENOL) 500 mg capsule Take by mouth every 6 (six) hours as needed for pain. ??? heafhyc-melmycbumpnag-mcxwujrr (EXCEDRIN MIGRAINE) 250-250-65 mg per tablet Take 1 tablet by mouth every 6 (six) hours as needed for pain. ??? bismuth subsalicylate (PEPTO BISMOL) 262 mg/15 mL suspension Take 30 mL by mouth every 6 (six) hours as needed for indigestion. ??? cetirizine (for_ZyrTEC) 10 mg tablet Take 10 mg by mouth daily as needed. ??? clindamycin (for_CLEOCIN T) 1 % lotion Apply 1 application topically 2 (two) times a day as needed. For hidradenitis suppurativa ??? divalproex (DEPAKOTE ER) 250 mg 24 hr tablet ??? divalproex (DEPAKOTE ER) 500 mg 24 hr tablet ??? docusate sodium (COLACE) 100 mg capsule Take 100 mg by mouth 2 (two) times a day as needed. ??? gabapentin (NEURONTIN) 300 mg capsule Take 300 mg by mouth 3 (three) times a day. ??? gabapentin (NEURONTIN) 600 mg tablet ??? gemfibrozil (LOPID) 600 mg tablet Take 1 tablet (600 mg total) by mouth 2 (two) times a day. ??? hydrOXYzine (ATARAX) 25 mg tablet ??? ibuprofen (ADVIL,MOTRIN) 200 mg capsule Take 600 mg by mouth every 6 (six) hours as needed for pain. ??? levonorgestrel (MIRENA) 20 mcg/24 hr (5 years) IUD 1 each by intrauterine route once. Place 06/01/2017 to be removed in 5 years ??? lidocaine (LMX) 4 % cream Apply 1 application topically 4 (four) times a day as needed for pain.For knee pain ??? lithium carbonate 300 mg tablet Take 300 mg by mouth 2 (two) times a day. 300 mg am and 1200 mg pm (prescribed by psych) ??? melatonin 3 mg tablet Take 3 mg by mouth at bedtime. ??? multivitamin capsule Take 1 capsule by mouth daily. ??? naltrexone (DEPADE) 50 mg tablet Take 50 mg by mouth daily. ??? OLANZapine (ZyPREXA) 15 mg tablet ??? pantoprazole (PROTONIX) 40 mg EC tablet Take 1 tablet (40 mg total) by mouth every morning before breakfast. ??? propranolol (INDERAL) 10 mg tablet Take 10 mg by mouth as needed. For anxiety ??? metroNIDAZOLE (METROGEL) 0.75 % vaginal gel One applicatorful twice weekly as directed Allergies Allergen Reactions ??? Eszopiclone Nausea And Vomiting ??? Latex Other (see comments) ??? Morphine GI intolerance ??? Naproxen Sodium Other (see comments) ??? Piroxicam Rash MEDICAL HISTORY Past Medical History: Diagnosis Date ??? Abuse Tobacco Smoking ??? Allergy Seasonal ??? Arthritis Rheumatoid ([facility]) ??? Bipolar I Disorder ([facility]) ??? Disturbance Sleep 12/18/2017 ??? Fibromyalgia ??? Hidradenitis Suppurativa ??? Hypertriglyceridemia 04/28/2019 ??? Migraine Headache ??? Moderate Or Severe Use Disorder (Dependence) Alcohol Remission ([facility]) 01/29/2019 ??? Persistent Depressive Disorder ??? Posttraumatic Stress Disorder Prolonged ??? Raynaud's Disease ??? Reflux Esophageal SURGICAL HISTORY Past Surgical History: Procedure Laterality Date ??? ARTHRODESIS OF ANKLE N/A 2001 Ankle fusion ??? BARTHOLIN GLAND CYST EXCISION Right 05/08/2019 ??? DILATION AND CURETTAGE ??? REPAIR OF UMBILICAL HERNIA N/A Repair of umbilical hernia GYNECOLOGY HISTORY: OB History 4 Para 3 Term 2 1 AB 1 Living 3 SAB 1 TAB 0 Ectopic 0 Molar 0 Multiple 0 Live Births 3 Menstrual History: No LMP recorded. (Menstrual status: Intrauterine Device). OBJECTIVE VITAL SIGNS BP 106/64 Wt 83.8 kg BMI 29.82 kg/m?? PHYSICAL EXAMINATION General: Pleasant, 39-year-old female no acute distress. Sensitive portion of this exam was chaperoned by Edel Hernández LPN. Gynecology exam: External female genitalia appear within normal limits. Close inspection of the vaginal introitus shows some clumpy white discharge present. Speculum exam shows some increased redness of the vaginal gimenez with a small to moderate amount of stuck on white clumpy discharge present. ASSESSMENT / PLAN #1 Vaginosis Bacterial, recurrent Vaginitis panel obtained to ensure resolution of her bacterial vaginosis. Since the weekend is approaching and her results may not be pack will plan on sending a prescription for metronidazole gel 1 applicator full twice weekly for the next 3-4 months. Should she indeed have yeast vaginitis now she tobegin treatment with her Monistat suppository she has at home on Sunday. She may begin her metronidazole gel treatment on Sunday since she completed her last dose of oral metronidazole on Sunday. Will adjust her plan of treatment accordingly based on the vaginitis results however. She verbalizes understanding of the above treatment plan and her questions were answered. She is congratulated on being 10 months over as of today. documented in this encounter Plan of Treatment Not on filedocumented as of this encounter Procedures Procedure Name Priority Date/Time Associated Diagnosis Comme nts VAGINITIS PANEL Routine 10/24/2019 1:57 PM Vaginosis Bacterial Results for this CDT procedure are i n the results section. documented in this encounter Results (ABNORMAL) Vaginitis Panel (10/24/2019 1:57 PM CDT) [facility]ist Method Time Signature Isi Positive (A) Negative 10/24/2019 [place] species, DNA 2:54 PM CDT Gardnerella Negative Negative 10/24/2019 [place] vaginalis, DNA 2:54 PM CDT Trichomonas Negative Negative 10/24/2019 [place] vaginalis, DNA 2:54 PM CDT Specimen Anatomical Collection Method Collection Time Receive d Time (Source) Location / / Volume Laterality Swab (Vagina) 10/24/2019 1:57 PM 10/24/19 20 2:04 CDT PM CDT Authorizing Provider Result Gin Mccullough APRN, C.N.P., M.S.N. LAB MICROBIOLOGY - G ENERAL ORDERABLES Performing Organization Address City/State/ZIP Code Phon e Number [facility]- [address] [place] [address] [facility] [place] [address] System in [place] [address] documented in this encounter Visit Diagnoses Diagnosis Vaginosis Bacterial - Primary documented in this encounter Additional Health Concerns Assessment Noted Time PHQ-9 Depression Total Score: 21 04/07/2019 8:00 PM CS T documented as of this encounter Care Teams Group Insurance Special Agent Relationship Specialty Start Date End Date Zoë Nick APRN, C.N.P. PCP - General Family Medicine 11/19/17 11/29/[address] [phone] documented as of this encounter
--- OUTSIDE RECORDS SUMMARY | 2021-11-23 10:32 | XMS_ITS | Encounter Summary ---
:1980 Author Organization [facility] Address [address] [place] [address] Care Team Providers Name Role Phone Zoë Nick APRN, C.N.P. Primary Care Provider [phone] Encounter Details Date Type Department Care Team Description 11/10/2019 Clinical Communication Department of [facility] Bibi Nick, Medicine, [place] TIM, C.[facility], in [place], [address] [place], [place] [address] [facility] [address] [place], [place] [phone] (Work) [phone] Social History Tobacco Use Types Packs/Day Years [...] or relatives? How often do you attend amish or Never 2019 holiness services? Do you belong to any clubs or No 01/29/2019 organizations such as amish groups, unions, fraternal or athletic groups, or [...] AM CDT documented as of this encounter Miscellaneous Notes Telephone Encounter - Destiny Collins APRN, C.NDallas, Ana, M.S.N. - 11/11/2019 12:26 AM CDT I really have very little access from now until December, so unless she has an urgent issue I wouldrecommend keeping appointment she currently has. Telephone Encounter - Allyn Kramer L.P.N. - 11/10/2019 4:27 PM CDT Can we use a same day spot? Telephone Encounter - Raisa Chambers - 11/10/2019 4:18 PM CDT Reason for Communication: Patient is looking for a provider that will work with her to figure out issues she is having and not just send her to specialists. Patient is needing an appointment sooner than later due to complex chronic health issues. Patient is currently scheduled with Destiny Collins in [facility] 12/16. Is there any chance that she could be seen sooner by either Destiny or Fariba? Current Can Nursing/Provider leave a detailed message: yes Did the patient refuse triage through Nurse line? (for symptom based concerns): Action Needed: Please call patient back if able to schedule sooner. Name of Medication (if relevant): documented in this encounter Plan of Treatment Not on filedocumented as of this encounter Visit Diagnoses Not on filedocumented in this encounter Additional Health Concerns Assessment Noted Time PHQ-9 Depression Total Score: 04/07/2019 8:00 PM CS T documented as of this encounter Care Teams Online Marketing Manager Relationship Specialty Start Date End Date Zoë Nick APRN, C.N.P. PCP - General Family Medicine 11/19/17 11/29/[address] [phone] documented as of this encounter
--- OUTSIDE RECORDS SUMMARY | 2021-11-23 10:37 | XMS_ITS ---
[...] Active ? Not availa ble TK PER [facility] PROTOCOL divalproex Active ? Not available divalproex [...]
[2021-11-24 12:39] LABS: Estradiol Premenol Female 31 pg/mL
[2021-11-24 15:38] LABS: Follicle Stimulating Hormone 8.5 IU/L; Luteinizing Hormone, Serum 23.3 IU/L
[2021-11-28 17:58] LABS: Progesterone, HPLC-MS/MS 0.11 ng/mL
== END 2021-11-23 08:36 | disposition home or self-care (01) ==
LOC: FBOREF 10:29
PROVIDERS: PCP Family Medicine; Visit Provider Family Medicine
DX: N91.2 Amenorrhea, unspecified (principal)
CPT/HCPCS: 82670; 83001; 83002; 84144

== ENCOUNTER 2022-02-02 10:51 | Outpatient (CLI) | payer BC, MEDICAID, SELFPAY ==
--- OUTSIDE RECORDS SUMMARY | 2022-02-02 10:59 | XMS_ITS | Continuity of Care Document ---
:1980 Author Organization [facility] Address [address] [address] [place] [address] Phone Care Team Providers Name Role Phone [...] CHRIS Ba No Information Gregory PAC Digestive [facility] Bridgette. 3[address] [facility], Clinic 2 [facility], [address], [place] [address], [facility] [place], , [place], [id number], [id number], [place]. tel:[phone] tel:[phone] Established [facility] [place] [facility] Acute Gregory PAC Referrin g Level 4 [facility] [place] Symptoms diarrheaGERD Bridgette. 3001 Provi amarilis: Health PA, Clinic or without 2 [place] Referral PO Box Concer[address] [place]. [address], (chief [place] [address], [place] complaint) [place], [place], [place], [place], [id number], [id number], [place]. 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 3001 Provider: Health PA, Endoscopy 2 [facility] [address] [place], [place], [address], [place] [address], [place] [facility], [place], [place], [place], [place] [address], [id number], [id number], [place]. [place], [place], tel:+ tel:[phone] . tel:[phone] [facility] GI Gastritis Mar-0 Alexa Calloway. Referri ng Digestive [facility] Symptoms determined by 3001 [facility] rovider: Health PA, Endoscopy or endoscopyGastri [address] X[place], Willy PO [facility] Concerns tis, [place] [address], [place] [address], (chief unspecified, [place] Leopoldo, 20 00 [place] complaint) without [place], [address], [place], [place], bleeding [id number], [place] [id number], [place]. , [place], [place] tel:[phone]. tel:[phone] tel:[phone] [id number] [facility] No Information Mar-0 [facility] o PA Kristel. Health PA, 2 [address] [facility] [place], [address], [place] [address], [place], , [place], [place], [id number], [id number], [place]. tel: tel:[phone] 1145 [facility] Gastroesophagea Mar-0 [facility] l reflux Bridgette. 3001 Health PA, disease, [address] [place], [address], whether [place] [address], [place] esophagitis [place], [place], [place], [place], [id number], [id number], [place]. tel: tel:[phone] [facility] [place] Diarrhea, Fe- Joy GRA[facility] unspecified 3 Omar. Health PA, 1 [address] [facility] [place], [address], [place] [address], [place], [place], [place], [place], [id number], [id number], [place]. tel: tel:[phone] [facility] [place] Diarrhea, May- [place] PAC [facility] unspecified Bridgette. 3001 Health PA, [address] [facility] [place], [address], [place] [address], [place], [place], [place], [place], [id number], [id number], [place]. tel: tel:[phone] [facility] [place] Irritable bowel Fe-0 Gregory PAC [facility] syndrome with - Bridgette. 3001 Health PA, diarrhea [address] [facility] [place], [address], [place] [address], [place], [place], [place], [place], [id number], [id number], [place]. tel: tel:[phone] [facility] Diarrhea, Nov- Mark GRAHAM [facility] unspecified Raisa. Health PA, Center 0 [address] [facility] [place], [address], [place] [address], [place], [place], [place], [place], [id number], [id number], [place]. tel: tel:[phone] Established [facility] [place] Comment Diarrhea, White [place] PAC Refe rring Level 3 or [facility] (chief unspecifiedGene Bridgette. 3001 Provider: 15-24 min Health PA, complaint) ralized 0 [facility] [facility] PO Box [place]. [address], [place] [address], [place], [place], [place], [place], [id number], [id number], [place]. tel: tel:[phone] [facility] [place] Epigastric Sep-1 Mark Bryan g Digestive Endoscopy painDiarrhea, Raisa. Pro vider: Health PA, Center unspecifiedColo 0 3001 [place] Referral PO [place]. [address], polypsDiverticu [place] [address], [place] losis of colon [place], , [place], [place], [id number], diverticulitisB [id number], [place] enign neoplasm [place]. tel: of cecumBenign tel: [phone] neoplasm of 1145 ascending colon Established [facility] [place] Comment Epigastric Sep-0 Gregory PAC Ref erring Level 3 or [facility]ive [facility] (chief painDiarrhea, Bridgette. 3001 Pr ovider: 15-24 min Health PA, complaint) unspecified 0 Rohit She lly PO Box typeWeight loss [address] NE, Myrom [employer] [address], [place] [address], J, [address] [place] [facility], [place], [place], Avenue, [id number], [id number], [place], [place], [address]. tel: tel: tel:[phone] [facility] [place] Epigastric Aug-2 Mark herrera Digestive Endoscopy painNausea with Raisa. P rovider: Health [place], Center vomiting, 0 3001 [place] Refer ral [address] [place] [address], onal history of [place] [address], [place] peptic ulcer [place], , [place], diseaseDisease [place], [id number], of stomach and [id number], [place] duodenum, [place]. tel: unspecifiedEpig tel: [phone] astric 1145 painNausea with vomiting, unspecified New Level 3 [facility] [place] GI Epigastric Aug-1 Gregory PAC Ref erring or 30-44 min [facility] Clinic Symptoms abdominal Bridgette. 3001 Pro vider: Health PA, or painNon-intract 0 Rohit Refe rral PO Box Concerns [place]. [address], (chief with nausea, [place] [address], [place] complaint) unspecified [place], [place], [place], [place], [id number], typeHistory of [id number], [place] peptic ulcer [place]. tel: disease tel:[phone] 2991 [facility] No Information Joy GRAH[facility] Omar. Health PA, 0 [address] [place], [address], [place] [address], [place], [place], [place], [place], [id number], [id number], [place]. tel: tel:[phone] Family History Family [...] Status Comments tetanus toxoid, reduced administered Note: AL IC bi-directional diphtheria toxoid, and acellular interface [...] interface ; Sour ce: Other Registry Novel [id number], all administered Not e: MIIC bi-directional formulations interface ; Sour ce: Other Registry tetanus toxoid, reduced administered Note: AL IC bi-directional diphtheria toxoid, and acellular interface ; Source: Other pertussis vaccine, adsorbed Acra stry Influenza, seasonal, injectable administered Note: MIIC [...] Registry Payers Payer name Insurance type Covered libertarian ID Authorization(s ) [facility] [id number] Social History Type Description Quantity Date Captured [...] scopy[facility]. She will obtain [...] diarrhea We can send these to your [place] [facility] office. If your insurance does not [...] me via the patient portal or call [phone] extension [phone] with questions, worsening symptoms. 1. [...]
--- OUTSIDE RECORDS SUMMARY | 2022-02-02 10:59 | XMS_ITS | Clinical Summary ---
:1980 Author Organization [facility] Address [address] [place] [address] Care Team Providers Name Role Phone Arely French APRN, C.N.PSarah Primary Care Provider Unavailable Source Comments Patient records contain information from all sites at [facility]. For routine questions regarding patient records, call [phone] during business hours, M-F 8:00 AM - 5:00 PM Central Time. Record requests for emergency care only can be directed to [phone] at any time.[facility] Allergies Active Allergy Reactions Severity Noted Date Comments Eszopiclone Nausea And Vomiting 05/04/2014 Latex Other (see comments) 01/23/2011 Morphine GI intolerance 07/24/2012 Naproxen Sodium Other (see comments) 01/23/2011 Piroxicam Rash 09/02/2015 Medications Medication Sig Dispensed Refills Start Date End Date Status cetirizine Take 10 mg by mouth 0 09/20/2015 Active (for_ZyrTEC) 10 mg daily as needed. tablet clindamycin Apply 1 application 0 12/18/2016 Active (for_CLEOCIN T) 1 % topically 2 (two) lotion times a day as needed. For hidradenitis suppurativa levonorgestrel 1 each by 0 Activ e (MIRENA) 20 mcg/24 hr intrauterine route (5 years) IUD once. Place 06/01/2017 to be removed in 5 years melatonin 3 mg tablet Take 3 mg by mouth 0 Active at bedtime. acetaminophen Take by mouth every 0 Active (TYLENOL) 500 mg 6 (six) hours as capsule needed for pain. aspirin-acetaminophen Take 1 tablet by 0 Active -caffeine (EXCEDRIN mouth every 6 (six) MIGRAINE) 250-250-65 hours as needed for mg per tablet pain. docusate sodium Take 100 mg by 0 Active (COLACE) 100 mg mouth 2 (two) times capsule a day as needed. gabapentin Take 300 mg by 0 Acti ve (NEURONTIN) 300 mg mouth 3 (three) capsule times a day. bismuth subsalicylate Take 30 mL by mouth 0 Active (PEPTO BISMOL) 262 every 6 (six) hours mg/15 mL suspension as needed for indigestion. lidocaine (LMX) 4 % Apply 1 application 0 Active cream topically 4 (four) times a day as needed for pain. For knee pain multivitamin capsule Take 1 capsule by 0 Active mouth daily. acamprosate (CAMPRAL) 0 04/11/2019 Active 333 mg EC tablet pantoprazole Take 1 tablet (40 90 tablet 3 09/01/2019 Active (PROTONIX) 40 mg EC mg total) by mouth tabletIndications: every morning Reflux Esophageal before breakfast. Additional Information Patient not taking. Reported on 07/19/2021 hydrOXYzine (ATARAX) 25 mg 0 08/21/2019 Active tablet gabapentin (NEURONTIN) 600 mg 0 09/21/2019 Active tablet divalproex (DEPAKOTE ER) 500 0 10/09/2019 Active mg 24 hr tablet metroNIDAZOLE (METROGEL) 0.75 ONE APPLICATORFUL TWICE 70 g 0 12/24/2019 Active % vaginal gelIndications: WEEKLY DIRECTED Vaginosis Bacterial Additional Information Patient not taking. Reported on 07/19/2021 risperiDONE (RisperDAL) 1 mg Take 1 mg by mouth 0 Active tablet 2 (two) times a day. gemfibroziL (LOPID) 600 mg TAKE ONE TABLET BY 180 tablet 3 05/2020 Active tabletIndications: MOUTH TWICE A DAY Hypertriglyceridemia Active Problems Problem Noted Date Bartholin's Gland Cyst 05/07/2019 Hypertriglyceridemia 04/28/2019 Moderate Or Severe Use Disorder (Dependence) Alcohol R emission 01/29/2019 Overview: Dec 2018: 30 day inpatient treatment at [facility] in [place], [place] Outpatient treatment [place], [place] Nicotine Dependence Cigarettes With Other Nicotine Ind uced Disorder 05/10/2018 Disturbance Sleep 12/18/2017 Hidradenitis Suppurativa 06/06/2017 Anxiety Generalized Disorder 04/03/2017 Migraine Headache 09/20/2015 Posttraumatic Stress Disorder Prolonged 09/20/2015 Fibromyalgia 08/19/2013 Borderline Personality Disorder 11/01/2011 Reflux Esophageal 01/23/2011 Raynaud's Disease 01/23/2011 Arthritis Rheumatoid 05/03/1985 Resolved Problems Problem Noted Date Resolved Date Obesity Body Mass Index 30-39.9 Adult 05/10/2018 Impaired Fasting Glucose 05/10/2018 01/29/2019 Acute posthemorrhagic anemia 02/11/2018 01/29/2019 Gastric Ulcer Unspecified As Acute Or Chronic Without 201701/29/2019 Hemorrhage Or Perforation Alcohol Moderate Or Severe Use Disorder (Dependence) 018 01/29/2019 Uncomplicated Hemorrhage Gastrointestinal 02/10/2018 02/13/2018 Bipolar I Disorder 09/20/2015 05/10/2018 Overview: Bipolar I Disorder NOS Allergy Seasonal 09/20/2015 05/10/2018 Abuse Tobacco Smoking 09/02/2015 06/12/2018 Dysthymia 01/23/2011 02/13/2018 Overview: Depression with Anxiety* Immunizations Name Administration Dates Next Due 4vHPV (discontinued) 06/21/2006, 03/08/2006 DTaP (Infanrix, Tripedia) 11/03/2008 H1N1 All Forms 02/26/2009 Influenza (IM) Preservative Free 02/04/2010 Influenza, Seasonal, Injectable 01/30/2013, 12/25/2011 Influenza, Unspecified 12/31/2017, 12/18/2016, 03/08/2016, 03/06/2011, 03/25/2008 MMR 04/02/1994 PPSV23 12/01/2012 Td, (Adult) Unspecified 07/21/1997 Tdap 09/01/2019 influenza vaccine quad 01/29/2019, 12/18/2017 (FLUZONE/FLUARIX) (6 months and older)(PF) Family History Medical History Relation Name Comments Thyroid cancer Father Rheum arthritis Grandmother Paternal Breast cancer Mother Colon cancer Mother Diabetes Mother Fibromyalgia Sister Relation Name Status Comments Father Alive Grandmother Paternal Mother Alive Sister Alive Social History Tobacco Use Types Packs/Day Years Used Date Smoking Tobacco: Every Day Cigarettes 1 Smokeless Tobacco: Never Tobacco Cessation: Ready to Quit: No; Co unseling Given: Yes Alcohol Use Standard Drinks/Week Comments Not Currently [...] drinks on one occasion? No t asked Social Isolation Answer Date Recorded In a typical week, how many times do you More than three jules es a week 01/29/2019 talk on the phone with family, friends, or neighbors? How often do you get together with friends Twice a week 10/24/2019 or relatives? How often do you attend latter day or Never 2019 evangelical services? 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 Inhaled Oxygen Concentration - - Weight 83.8 kg (184 lb 11.9 oz) 10/24/2019 1:24 PM CDT Height 167.6 cm (5' 6) 01/29/2019 12:53 PM CDT Body Mass Index 29.82 01/29/2019 12:53 PM CDT Plan of Treatment Health Maintenance Due Date Last Done Comments Hepatitis B Vaccines (1 of 3 - 1980 3-dose series) Hepatitis C Screening 1980 COVID-19 Vaccine (#1) 1980 Pneumococcal vaccine (0-64 years) 12/01/2013 12/01/2012 (2 - PCV) Mammogram 04/12/2017 04/12/2016 Tobacco Cessation counseling 08/31/2020 09/01/2019 Depression Screening (Annual 04/02/2021 PHQ-2) Lipid (Cholesterol) Screening 06/11/2021 06/11/2020, 2019, 08/22/2019, Additional history exists Influenza Vaccine (#1) 2021 01/29/2019, 12/31/2017, 12/18/2017, Additional history exists Creatinine Level 06/09/2022 06/09/2021, 03/30/2021, 03/29/2021, Additional history exists Glucose Test for Med Monitoring 06/09/2022 06/09/2021, 03/03, 03/29/2021, Additional history exists Potassium Level 06/09/2022 06/09/2021, 03/30/2021, 03/29/2021, Additional history exists Sodium Level 06/09/2022 06/09/2021, 03/30/2021, 03/29/2021, Additional history exists Cervical Cancer Screening 08/09/2024 08/09/2021, 05/07/2019 , 05/07/2019, Additional history exists DTaP,Tdap,and Td Vaccines (4 - Td 08/31/2029 09/01/2019, , or Tdap) 07/21/1997 HIV Screening Completed 01/23/2011 Medical Devices Implanted Type Area Maintenance Fitter Device Shelf Model / Identifier Expiration Serial / Date Lot Intrauterine Device-06/06/2017 Intrauterine Uterus Shruthi 11/07/2019 / Implanted: Qty: 1 on 06/06/2017 by Yi Kaye, TIM, C.N.P. 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 PCP - General Family Medicine 11/30/20
--- OUTSIDE RECORDS SUMMARY | 2022-02-02 10:59 | XMS_ITS | Clinical Summary ---
:1980 Author Organization [employer] [facility] [place] [address] Care Team Providers Name Role Phone Willy Serrano MD Primary Care Provider [phone] Allergies Active Allergy Reactions Severity Noted Date Comments Piroxicam Stomatitis, Rash 10/10/2006 Latex Rash 03/08/2006 Other reaction( s): Other (see comments) Eszopiclone Nausea And Vomiting 05/04/2014 Morphine GI Upset 10/12/2008 Pt passes out Other reaction( s): GI intolerance Naproxen Contact Dermatitis 03/08/2006 Naproxen Sodium Other - Describe In 01/23/2011 Comment Field Medications Medication Sig Dispensed Refills Start Date End Date Status levonorgestrel Inject 1 Each 0 A ctive intrauterine device intrauterine one (MIRENA) 20 mcg/24 time. hours (5 yrs) 52 mg IUD pantoprazole Take 1 tablet by 90 tablet 3 11/14/2019 Active (PROTONIX) 40 mg mouth 2 times daily delayed-release before meals. tabletIndications: Gastro-esophageal reflux disease without esophagitis metroNIDAZOLE 0.75% Insert 1 0 Active vaginal (METROGEL) Applicatorful into 0.75 % vaginal gel the vagina once daily if needed. cloNIDine HCL Take 0.2 mg by 0 A ctive (CATAPRES) 0.1 mg mouth once daily in tablet the evening. diphenoxylate-atropine Take 5 mg by mouth 0 Active , 2.5-0.025 mg, 4 times daily if (LOMOTIL) 2.5-0.025 mg needed for tablet Diarrhea. hyoscyamine (LEVBID) Take 0.375 mg by 0 Active 0.375 mg mouth every 12 Controlled-Release hours. tablet minocycline (MINOCIN) Take 100 mg by 0 Active 100 mg mouth once daily. capsuleIndications: cystic acne ondansetron (ZOFRAN Place 8 mg on the 0 Active ODT) 8 mg tongue 3 times disintegrating tablet daily if needed for Nausea/Vomiting. QUEtiapine (SEROQUEL) Take 50 mg by mouth 0 Active 50 mg tablet 2 times daily if needed (anxiety). spironolactone Take 100 mg by 0 Active (ALDACTONE) 100 mg mouth once daily. tablet gemfibroziL (LOPID) Take 600 mg by 0 Active 600 mg tablet mouth at bedtime. cholecalciferol Take 5,000 units by 0 Active (VITAMIN D3) 5,000 mouth once daily. unit capsule 40 units = 1 mcg (5000 units = 125 mcg) DULoxetine (CYMBALTA) Take 60 mg by mouth 0 Active 60 mg Delayed-release once daily. Take capsule along with one 30 mg capsule for total dose of 90 mg. DULoxetine (CYMBALTA) Take 30 mg by mouth 0 Active 30 mg Delayed-release once daily. Take capsule along with one 60 mg capsule for total dose of 90 mg etanercept (EnbreL) 50 Inject 50 mg 0 Active mg/mL (1 mL) syringe subcutaneous once weekly. lurasidone (LATUDA) 20 Take 20 mg by mouth 0 Active mg tablet once daily with evening meal. meloxicam 15 mg tablet Take 15 mg by mouth 0 Active once daily. naltrexone (REVIA) 50 Take 50 mg by mouth 0 Active mg tablet 2 times daily. pregabalin (LYRICA) Take 150 mg by 0 Active 150 mg capsule mouth 3 times daily. prochlorperazine Take 10 mg by mouth 0 Active (COMPAZINE) 10 mg 3 times daily if tablet needed for Nausea/Vomiting. QUEtiapine (SEROQUEL) Take 300 mg by 0 Active 300 mg tablet mouth at bedtime. tiZANidine (ZANAFLEX) Take 4 mg by mouth 0 Active 4 mg tablet every 8 hours if needed for Muscle Spasm. Active Problems Problem Noted Date Intentional overdose 03/30/2021 Alcoholic intoxication with complication 03/30/2021 PTSD (post-traumatic stress disorder) 06/10/2020 Irritable bowel syndrome with both constipation and di arrhea 06/10/2020 Bartholin's gland cyst 05/07/2019 Obesity (BMI 30-39.9) 05/07/2019 Hypertriglyceridemia 04/28/2019 Alcoholic 02/10/2018 Hidradenitis suppurativa 06/06/2017 Tobacco use disorder 02/28/2015 Bipolar affective disorder, rapid cycling 08/28/2013 Generalized anxiety disorder 08/28/2013 Social anxiety disorder 08/28/2013 Anorexia nervosa, restricting type 08/28/2013 Controlled substance agreement signed and scanned 05/2905/29/2013 Borderline personality disorder 11/01/2011 Raynaud's disease 01/23/2011 Issue of repeat prescriptions 11/02/2010 Overview: RHEUMATOID ARTHRITIS, Fibromyalgia - cedric ing Klonopin and Ultram IUD (intrauterine device) in place 08/25/2010 Fibromyalgia 08/20/2009 GERD (gastroesophageal reflux disease) 02/16/2009 ALLERGIC RHINITIS 04/16/2006 Overview: Environmental Allergies Rheumatoid arthritis(714.0) 05/03/1985 Migraine headache Resolved Problems Problem Noted Date Resolved Date Bipolar disorder with current episode depressed 11/26/2019 06/10/2020 Drug-induced sleep disorder 05/10/2018 05/07/2019 Multiple gastric ulcers 02/11/2018 05/07/2019 Anemia due to acute blood loss 02/11/2018 0 Upper GI bleed 02/10/2018 05/07/2019 Dyssomnia 12/18/2017 05/07/2019 Alcohol abuse; reports in very short term remission 07/25/19 15 10/16/2014 Eating disorder, unspecified 04/29/2012 08/28/2013 Encounter for long-term (current) use of other medications 1 04/08/2011 02/07/2012 Overview: MH controlled sub agreement 02/11 Encounter for long-term (current) use of other medications 0 12/13/2011 05/07/2019 Overview: Cont sub agreement 12/12 Bipolar I disorder, most recent episode (or current) 012 08/28/2013 unspecified Bipolar disorder 07/18/2011 11/01/2011 Major depression, recurrent 02/19/2010 11/22/2011 Overview: R/o BPAD Anxiety Disorder, NOS; Social Anxiety, Panic Disorder and PT SD 02/19/2010 08/28/2013 symptoms Depressive disorder, not elsewhere classified 04/16/2006 02/19/2010 Immunizations Name Administration Dates Next Due Human Papilloma Virus Vaccine 06/21/2006, 03/08/2006 Influenza A (H1N1), Inactivated (Age 1102/26/2009 >=3 Years) Influenza Virus, Unspecified 12/31/2017 Influenza, IIV3 (Age >=3 years) 01/30/2013, 12/25/2011, 1207/2010, 03/25/2008 MMR 04/02/1994 Td (Age >=7 Years) 07/21/1997 Tdap 11/03/2008 Family History Medical History Relation Name Comments Hypertension Father Thyroid cancer Father Cancer Maternal Grandmother Lung Diabetes Maternal Grandmother Heart Disease Maternal Grandmother Cancer-breast Mother Cancer-colon Mother Diabetes type II Mother Heart Disease Paternal Grandfather Stroke Paternal Grandfather Hypertension Paternal Grandmother Stroke Paternal Grandmother Arthritis Sister 3 Haley RA Relation Name Status Comments Daughter 1 Alive Daughter 2 Alive Father Alive Maternal Grandfather Maternal Grandmother Mother Alive Paternal Grandfather Paternal Grandmother Sister 1 Alive Sister 2 Alive Sister 3 Haley Son Alive Social History Tobacco Use Types Packs/Day Years Used Date Current Every Day Smoker Cigarettes 1 Smokeless Tobacco: Never Used Tobacco Cessation: Ready to Quit: No; Co unseling Given: Yes Comments: does not want to quit Alcohol Use Standard Drinks/Week Comments Not Currently 0 (1 standard drink = 0.6 oz pure sober 1 year and then relapsed alcohol) with 10 beers in 2 d ays Alcohol Habits Answer Date Recorded How often do you have a drink Not asked containing alcohol? How many drinks containing alcohol do Not asked you have on a typical day when you are drinking? How often do you have six or more Not asked drinks on one occasion? Comment: sober 1 year and then relapsed 0 with 10 beers in 2 days Sex Assigned at Date Recorded Not on file Obstetrics History Para Term AB IAB SAB Ectopic Multiple Living Live Births 4 3 2 1 1 0 1 0 0 3 3 Date Outcome GA Total Labor/2nd/3rd Weight Sex Delivery Anes PTL Steffany A 1 A5 Name Clin Labor 10/28 Term 38w 3.29 kg F VAGINAL Trice Kyl ee 0d (7 lb 4 VACU ng y re oz) Delivery Location: [facility] 07/18/2004 Term 37w0d 2.38 kg (5 M VAGINAL VACU Trice ng 9 9 Eliezer Serrano lb 4 oz) Delivery Location: [facility] 12/15/2006 SAB 10w0d SPONTANEOUS Demis e Delivery Location: [facility] Comments: D&C 10/20/2008 36w5d 3.12 kg (6 lb 14 F Vag Steffany ing 8 9 Esther Serrano oz) Delivery Location: [facility] Last Filed Vital Signs Vital Sign Reading Time Taken Comments Blood Pressure 122/79 06/09/2021 3:01 PM MATHEMATICIAN RESEARCH Pulse 84 06/09/2021 3:01 PM MATHEMATICIAN RESEARCH Temperature 37 ??C (98.6 ??F) 06/09/2021 11:37 AM MATHEMATICIAN RESEARCH Respiratory Rate 16 06/09/2021 3:01 PM MATHEMATICIAN RESEARCH Oxygen Saturation 95% 06/09/2021 3:01 PM MATHEMATICIAN RESEARCH Inhaled Oxygen Concentration - - Weight 91 kg (200 lb 11.2 oz) 06/09/2021 11:37 AM MATHEMATICIAN RESEARCH Height 165.1 cm (5' 5) 06/09/2021 11:37 AM MATHEMATICIAN RESEARCH Body Mass Index 33.4 06/09/2021 11:37 AM MATHEMATICIAN RESEARCH Plan of Treatment Health Maintenance Due Date Last Done Comments COVID-19 vaccine series (#1) 1980 Hepatitis C screening for age 1001/28/2000 18-79 BMI (ht and wt on same day) for 06/30/2016 07/01/2015 age 18+ Tetanus booster 11/03/2018 11/03/2008, 07/21/1997 Depression screening for age 12+ 06/09/2021 06/09/2020, , 07/01/2015, Additional history exists Influenza for age 9-49 12/01/2021 12/31/2017, 01/30/2013, 12/25/2011, Additional history exists Pap test for age 21-65 08/09/2024 08/09/2021, 08/09/2021, 08/04/2013, Additional history exists Tdap Completed 11/03/2008 Results Not on filefrom Last 3 Months Insurance Payer Benefit Plan / Subscriber ID Effective Dates Phone Addre ss Type Group BLUE CROSS BLUE CROSS OF [id number] 2016-Present [address] [place] [address] [id number] [place] [id number] [address] Personal/Family Self 1980 [address]) [place] [id number] Advance Directives Latest Code Status on File Code Status Date Activated Date Inactivated Comments Full Code 03/29/2021 7:17 PM 03/30/2021 2:37 PM Code Status Discussion: Reviewed Preferences Full Code 06/10/2020 5:42 AM 06/11/2020 7:09 PM Code Status Discussion: Not Discussed Full Code 11/25/2019 4:24 PM 11/28/2019 2:10 PM Code Status Discussion: Not Discussed Full Code 05/08/2019 11:15 AM 05/08/2019 5:10 PM Code Status Discussion: Discussed Full Code 02/10/2018 9:46 PM 02/11/2018 4:44 PM Care Teams Liquor Rectifier Relationship Specialty Start Date End Date Willy Serrano MD PCP - General Family Practice 03/30/211999 [place] [address]
--- OUTSIDE RECORDS SUMMARY | 2022-02-02 10:59 | XMS_ITS | Encounter Summary ---
:1980 Author Organization [facility] Address [address] [place] [address] Care Team Providers Name Role Phone Arely French APRN, C.N.P. Primary Care Provider Unavailable Encounter Details Date Type Department Care Team Description 06/01/2021 Orders Only [facility] PCP [facility] MNT Arely French, Hype rtriglyceridemia TIM, C.N.P. Social History Tobacco Use Types Packs/Day Years [...] or relatives? How often do you attend alevism or Never 2019 restorationist services? Do you belong to any clubs or No 01/29/2019 organizations such as alevism groups, unions, fraternal or athletic groups, or [...] AM CDT documented as of this encounter Plan of Treatment Scheduled Orders Name Type Priority Associated Diagnoses Order S chedule Lipid Panel Lab Routine Hypertriglyceridemia Expecte d: 06/15/2021, Expires: 09/01/2022 documented as of this encounter Visit Diagnoses Diagnosis Hypertriglyceridemia documented in this encounter Additional Health Concerns Assessment Noted Time PHQ-9 Depression Total Score: 21 04/07/2019 8:00 PM CS T documented as of this encounter Care Teams Metal Hanging Helper Relationship Specialty Start Date End Date Arely French APRN, C.N.P. PCP - General Family Medicine 11/30/20 documented as of this encounter
--- OUTSIDE RECORDS SUMMARY | 2022-02-02 10:59 | XMS_ITS | Encounter Summary ---
:1980 Author Organization [facility] Address [address] [place] [address] Care Team Providers Name Role Phone Arely French APRN, C.N.P. Primary Care Provider Unavailable Encounter Details Date Type Department Care Team Description 03/08/2021 Orders Only [facility] PCP [facility] MNT Arely French Moni toring For APRN, C.N.P. Therapeutic [place] g Therapy Social History Tobacco Use Types Packs/Day Years [...] or relatives? How often do you attend taoist or Never 2019 orthodox services? Do you belong to any clubs or No 01/29/2019 organizations such as taoist groups, unions, fraternal or athletic groups, or [...] as of this encounter Plan of Treatment Not on filedocumented as of this encounter Visit Diagnoses Diagnosis Monitoring For Therapeutic Drug Therapy documented in this encounter Additional Health Concerns Assessment Noted Time PHQ-9 Depression Total Score: 21 04/07/2019 8:00 PM CS T documented as of this encounter Care Teams Clinical Care Coordinator Relationship Specialty Start Date End Date Arely French APRN, C.N.P. PCP - General Family Medicine 11/30/20 documented as of this encounter
--- OUTSIDE RECORDS SUMMARY | 2022-02-02 10:59 | XMS_ITS | Continuity of Care Document ---
:1980 Author Organization [facility] Address [address] [place] [address] Phone Care Team Providers Name Role Phone [...] rs Description For Visit Copied on Encounter [facility] No Information [facility] Audi. Pain [place] [address] [facility], [place], [address] [place], [place], [place], [place], [id number] [place], , [place]. [id number] tel: , [place] [phone] tel: [phone] OFFICE/OUTPA [facility] Back Pain FibromyalgiaOther Sep-2 OBr ien Referring TIENT VISIT, [facility] (chief intervertebral disc Tra vis. Provider: EST Pain [place] complaint) displacement, [address] [facility], lumbar [place], Will J, [address] [facility] [address] [facility] [place], disorder, [place], [place], [place], [place], unspecifiedAlcohol [phone] [place], abuse, in , [place]. [place], [place], [id number] remissionOther long tel: [phone] , [place] term (current) drug [id number] . tel: therapy tel:[phone] [facility] No Information Sep- [facility] Josh. Pain [place] [address] [facility], [place], [address] [facility] [place], [place], [place], [place], [id number] [place], , [place]. [id number] tel: , [place] [phone] tel: [phone] OFFICE/OUTPA [facility] Back Pain FibromyalgiaOther Sep-0 OBr ien Referring TIENT VISIT, [facility] (chief intervertebral disc Tra vis. Provider: NEW Pain [place] complaint) displacement, 1 [address] [facility], lumbar [place], Will J, [address] [facility] [place] [address] [facility] [place], disorder, [place], [place], [place], [place], unspecifiedAlcohol [id number] [place], abuse, in , [place]. [place], [place], [phone] remissionOther long tel: [phone] , term (current) drug [id number] . tel: therapy tel: [phone] Family History Family Member Type Diagnosis Age At Onset Mother Problem Bulging discs/back surgery Payers Payer name Insurance type Covered democrat ID Authorization(s ) [facility] [id number] Social History Type Description Quantity Date Captured [...] of cauda equina syndrome. Continues to utilize post acute care registered nurse. She is interested in pursuing any treatment option that can hel p ease some of the painShe states she previousl y consulted with rheumatology but did not have a g ood experience. She reports she has previously b jaironn advised to complete the pain rehab program a t [facility] by another provider.She details she continues to be managed on Duloxetine and co ntinues to wean off Gabapentin d/t fatig ue. Continues to take meloxicam despite he r hx of ulcers. She also inquires about any m edication suggestions to help with sleeping at [facility].No other concerns today. Back Pain Severity level [...]
--- OUTSIDE RECORDS SUMMARY | 2022-02-02 11:00 | XMS_ITS | Encounter Summary ---
:1980 Author Organization [facility] Address [address] [place] [address] Care Team Providers Name Role Phone Zoë Nick APRN, C.N.P. Primary Care Provider [phone] Reason for Visit Reason Comments Med Refill Encounter Details Date Type Department Care Team Description 01/23/2020 Refill Department of Obstetrics and Mccullough, Rebecca Gillespie APRN, Med Refill Gynecology in [place], C.N.P., M.S.N. [place] [address] [address] [facility] [phone] Social History Tobacco Use Types Packs/Day Years [...] many times do you More than three ujles es a week 01/29/2019 talk on the phone with family, friends, or neighbors? How often do you get together with friends Twice a week 10/24/2019 or relatives? How often do you attend anabaptism or Never 2019 scientology services? Do you belong to any clubs or No 01/29/2019 organizations such as anabaptism groups, unions, fraternal or athletic groups, or [...] highest level of school Associate degree: andreia adinalvaro, 10/24/2019 you have completed or the highest technical, or vocational shandra flores degree you have received? Sex Assigned at Date Recorded Female 12/18/2017 11:00 AM CDT documented as of this encounter Miscellaneous Notes Telephone Encounter - Laury Mercedes L.P.N. - 01/26/2020 11:48 AM CDT Notified patient that the prescription was not refilled. She said that if she misses a day that the BV comes right back. Requesting an appointment with Rebecca Mccullough. Telephone Encounter - Rebecca Mccullough APRN, C.NDallas, M.S.N. - 01/26/2020 10:26 AM CDT Suppressive treatment completed documented in this encounter Plan of Treatment Not on filedocumented as of this encounter Visit Diagnoses Diagnosis Vaginosis Bacterial documented in this encounter Additional Health Concerns Infection Onset Date Last Indicated Resolved Time COVID19 Pending 02/04/2020 02/04/2020 02/05/2020 5:44 PM PLUG DRILL OPERATOR Assessment Noted Time PHQ-9 Depression Total Score: 21 04/07/2019 8:00 PM CS T documented as of this encounter Care Teams Respiratory Care Technician Relationship Specialty Start Date End Date Zoë Nick APRN, C.N.P. PCP - General Family Medicine 11/19/17 11/29/20 [address] [place] [address] documented as of this encounter
--- OUTSIDE RECORDS SUMMARY | 2022-02-02 11:00 | XMS_ITS | Encounter Summary ---
:1980 Author Organization [facility] Address [address] [place] [address] Care Team Providers Name Role Phone Zoë Nick APRN, C.N.P. Primary Care Provider [phone] Encounter Details Date Type Department Care Team Description 08/31/2020 Orders Only [facility] PCP [facility] MNT Zoë Nick M onitoring For PAPER SHEETER, C.N.P. Therapeutic Drug [address] [place] [address] Social History Tobacco Use Types Packs/Day Years [...] or relatives? How often do you attend buddhist or Never 2019 adventism services? Do you belong to any clubs or No 01/29/2019 organizations such as buddhist groups, unions, fraternal or athletic groups, or [...] the highest level of school Associate degree: anisatiesha willams, 10/24/2019 you have completed or the [...] documented as of this encounter Care Teams Podiatrist Orthopedic Relationship Specialty Start Date End Date Zoë Nick, TIM, C.N.P. PCP - General Family Medicine 11/19/17 11/29/[address] [address] documented as of this encounter
--- OUTSIDE RECORDS SUMMARY | 2022-02-02 11:00 | XMS_ITS | Encounter Summary ---
:1980 Author Organization [facility] Address [address] [place] [address] Care Team Providers Name Role Phone Zoë Nick APRN, C.N.P. Primary Care Provider [phone] Reason for Visit Reason Comments Follow-up Outpatient (Routine) - Closed Specialty Diagnoses / Procedures Referred By Contact Refer red To Contact Obstetrics and Diagnoses Vaginosis Bacterial Rebecca Mccullough APRN, [facility] Gynecology C.N.P., M.S.N. [address], [place] [address] Referral ID Status Reason Start Date Expiration Date Visits Requ ested Visits Authorized Closed 09/30/2019 09/29/2020 1 1 Encounter Details Date Type Department Care Team Description 10/15/2019 Office Visit Department of Rebecca Mccullough, Vaginosis Ba cterial Obstetrics and TIM, C.N.P., (Primary Dx) Gynecology in [place], [place] [address], [place] [address] Social History Tobacco Use Types [...] or relatives? How often do you attend oriental orthodox or Never 2019 mandaeism services? Do you belong to any clubs or No 01/29/2019 organizations such as oriental orthodox groups, unions, fraternal or athletic groups, or [...] or getting things needed for daily living? Sex Assigned at Date Recorded Female 12/18/2017 11:00 AM CDT documented as of this encounter Last Filed Vital Signs Vital Sign Reading Time Taken Comments Blood Pressure 110/66 10/15/2019 11:09 AM CDT Pulse - - Temperature - - Respiratory Rate - - Oxygen Saturation - - Inhaled Oxygen Concentration - - Weight 84 kg (185 lb 3 oz) 10/15/2019 11:09 AM CDT Height - - Body Mass Index 29.89 01/29/2019 12:53 PM CDT documented in this encounter Progress Notes Rebecca Mccullough APRN, C.N.P., M.S.N. - 10/15/2019 11:15 AM CDT SUBJECTIVE CHIEF COMPLAINT Chief Complaint Patient presents with ??? Follow-up REASON FOR VISIT Marlin Plummer is a 39 y.o. female is seen in follow-up after being treated for bacterial vaginosis with metronidazole on 09/29/2019. At that time we had discussed a test for cure and possible preventative treatment as she has had issues recurring vaginitis. She continues to have a Mirena IUD in place and has no regular menstrual periods. Overall she feels better and notices less odor and has no discharge currently. She has no some itching on the outside vulva, which also feel dry at times. She was able to tolerate that metronidazole without difficulties. CURRENT MEDICATIONS Current Outpatient Medications Medication Sig ??? acamprosate (CAMPRAL) 333 mg EC tablet ??? acetaminophen (TYLENOL) 500 mg capsule Take by mouth every 6 (six) hours as needed for pain. ??? klhnhsw-wbafdmsvttvlj-yhjltmqe (EXCEDRIN MIGRAINE) 250-250-65 mg per tablet Take [...] mg by mouth as needed. For anxiety Allergies Allergen Reactions ??? Eszopiclone Nausea And Vomiting ??? Latex Other (see comments) ??? Morphine GI intolerance ??? Naproxen Sodium Other (see comments) ??? Piroxicam Rash MEDICAL HISTORY Past Medical History: Diagnosis Date ??? Abuse Tobacco Smoking ??? Allergy Seasonal ??? Arthritis Rheumatoid ([facility]) ??? Bipolar I Disorder ([facility]) ??? Disturbance Sleep 12/18/2017 ??? Fibromyalgia ??? Hidradenitis Suppurativa ??? Hypertriglyceridemia 04/28/2019 ??? Migraine Headache ??? Moderate Or Severe Use Disorder (Dependence) Alcohol Remission ([facility]) 01/29/2019 ??? Persistent Depressive Disorder ??? Posttraumatic [...] status: Intrauterine Device). OBJECTIVE VITAL SIGNS BP 110/66 Wt 84 kg BMI 29.89 kg/m?? PHYSICAL EXAMINATION Sensitive portion of this exam was chaperoned by Steffanie Leonardo L.P.N. Gynecology exam: On gross inspection, she has normal-appearing external female genitalia. Close inspection of the right vulva does show a window in the inferior portion of the labia near the perineum, but no sores or excoriation noted. No edema although the tissues appears slightly thickened on the mid portion of the labia majora. Speculum exam shows pink, rugated vaginal tissues with no significant redness. There is a moderate amount of white to slightly cream colored discharge present. Vaginitis panel was obtained and is pending. ASSESSMENT / PLAN #1 Vaginosis Bacterial Symptoms have improved although she does have some apparent irritation of the vulva as identified bysome thickened appearing vulvar tissues. She may use some Vaseline to these areas to protect the skin from discharge and or friction. With negative vaginitis panel, will plan for preventative treatmentfor up to 4 months with metronidazole gel. If positive for bacterial vaginosis, will consider an alternate treatment such as clindamycin vaginal cream or Tinidazole and retest for cure before proceeding with suppressive treatment. Alternatively we did discuss use of boric acid capsules as well. documented in this encounter Plan of Treatment Not on filedocumented as of this encounter Procedures Procedure Name Priority Date/Time Associated Diagnosis Comme nts VAGINITIS PANEL Routine 10/15/2019 11:55 AM Vaginosis Bacteria l Results for this CDT procedure are i n the results section. documented in this encounter Results (ABNORMAL) Vaginitis Panel (10/15/2019 11:55 AM CDT) [facility] Method Time Signature Isi Negative Negative 10/15/2019 [place] species, DNA 1:34 PM CDT Gardnerella Positive (A) Negative 10/15/2019 OW[place] vaginalis, DNA 1:34 PM CDT Trichomonas Negative Negative 10/15/2019 [place] vaginalis, DNA 1:34 PM CDT Specimen Anatomical Collection Method Collection Time Receive d Time (Source) Location / / Volume Laterality Swab (Vagina) 10/15/2019 11:55 10/15/2019 AM CDT 12:01 PM CDT Authorizing Provider Result Gin Mccullough APRN, C.N.P., M.S.N. LAB MICROBIOLOGY - G ENERAL ORDERABLES Performing Organization Address City/State/ZIP Code Phon e Number [facility]- [address] [place] [address] [place] [address] System in [place] [address] [facility] documented in this encounter Visit Diagnoses Diagnosis Vaginosis Bacterial - Primary documented in this encounter Additional Health Concerns Assessment Noted Time PHQ-9 Depression Total Score: 21 04/07/2019 8:00 PM CS T documented as of this encounter Care Teams Gut Carrier Relationship Specialty Start Date End Date Zoë Nick APRN, C.N.P. PCP - General Family Medicine 11/19/17 11/29/[address] [place] [address] documented as of this encounter
--- OUTSIDE RECORDS SUMMARY | 2022-02-02 11:00 | XMS_ITS | Encounter Summary ---
:1980 Author Organization [facility] Address [address] [place] [address] Care Team Providers Name Role Phone Zoë Nick APRN, C.N.P. Primary Care Provider [phone] Reason for Visit Reason Comments Medical Information Encounter Details Date Type Department Care Team Description 10/16/2019 Clinical Communication Department of [facility] Obstetrics and , ACCOUNTING MANAGER CPA, Gynecology in [place], [place] M.S.N. [address] [place] [address] Social History Tobacco Use Types [...] this encounter Miscellaneous Notes Telephone Encounter - Alberto Key S - 10/16/2019 8:07 AM CDT Reason for Communication: patient called and said she is returning a call from olivia mcqueen from last night 10/14, please advise. Current Can Nursing/Provider leave a detailed message: yes Did the patient refuse triage through Nurse line? (for symptom based concerns): Action Needed: Name of Medication (if relevant): documented in this encounter Plan of Treatment Not on filedocumented as of this encounter Visit Diagnoses Not on filedocumented in this encounter Additional Health Concerns Assessment Noted Time PHQ-9 Depression Total Score: 21 04/07/2019 8:00 PM CS T documented as of this encounter Care Teams Graphite Grinder Relationship Specialty Start Date End Date Zoë Nick, ACCOUNTING MANAGER CPA, C.N.P. PCP - General Family Medicine 11/19/17 11/29/20 [address] [address] documented as of this encounter
--- OUTSIDE RECORDS SUMMARY | 2022-02-02 11:00 | XMS_ITS | Encounter Summary ---
:1980 Author Organization [facility] Address [address] [place] [address] Care Team Providers Name Role Phone Zoë Nick APRN, C.N.P. Primary Care Provider [phone] Reason for Visit Reason Comments COVID Inquiry Encounter Details Date Type Department Care Team Description 01/30/2020 Clinical Communication Department of Rebecca Mccullough CO VID Inquiry Obstetrics and TIM, C.N.P., Gynecology in [place], [place] [address] [place] [address] Social History Tobacco Use Types [...] or relatives? How often do you attend jew or Never 2019 buddhist services? Do you belong to any clubs or No 01/29/2019 organizations such as jew groups, unions, fraternal or athletic groups, or [...] this encounter Miscellaneous Notes Telephone Encounter - Soni Lara - 01/30/2020 8:18 AM CDT COVID DOS/PASS Screening What is the patient requesting?: Additional Appointments (Continue with screening) Have you tested positive for COVID-19 in the last 30 days (20 days for ARZ) or do you have a pendingCOVID-19 test because you had symptoms?: No (Continue with screening) Have you had close contact* with a lab confirmed positive case of COVID-19?: No (Continue with screening) When is the patient asking to be scheduled F2F?: Less than 30 days in [facility], SWWI, SEMN (Continue screening) In the past 14 days are any of the following symptoms new to you and not related to an existing health condition?: No symptoms noted (End screening - schedule as appropriate) Plan: Endpoint recommendation: Followed regional OTG *Reminder if sending patient for testing in [facility] or [facility], an email notification is required. documented in this encounter Plan of Treatment Not on filedocumented as of this encounter Visit Diagnoses Not on filedocumented in this encounter Additional Health Concerns Assessment Noted Time PHQ-9 Depression Total Score: 21 04/07/2019 8:00 PM CS T documented as of this encounter Care Teams Marketing Planning Manager Relationship Specialty Start Date End Date Zoë Nick, TIM, C.N.P. PCP - General Family Medicine 11/19/17 11/29/[address] [place] [address] documented as of this encounter
--- OUTSIDE RECORDS SUMMARY | 2022-02-02 11:00 | XMS_ITS | Encounter Summary ---
:1980 Author Organization [facility] Address [address] [place] [address] Care Team Providers Name Role Phone Zoë Nick APRN, C.NDallas Primary Care Provider [phone] Reason for Visit Reason Onset Date Comments Outpatient COVID-19 Testing 02/04/2020 Encounter Details Date Type Department Care Team Description 02/04/2020 External Outreach Department of Boris García Infect ion Upper Internal Medicine in J, D.O. Respiratory (Primary [place], [place] [address]) [address] [facility] [place] [phone] Social History Tobacco Use Types Packs/Day Years [...] or relatives? How often do you attend buddhism or Never 2019 mormonism services? Do you belong to any clubs or No 01/29/2019 organizations such as buddhism groups, unions, fraternal or athletic groups, or [...] AM CDT documented as of this encounter Progress Notes Kandy Larkin L.P.N. - 02/04/2020 3:55 PM CST Encounter created for the drive-through COVID-19 testing. BOAT OPERATOR documented in this encounter Plan of Treatment Not on filedocumented as of this encounter Procedures Procedure Name Priority Date/Time Associated Diagnosis Comme nts SARS CORONAVIRUS-2 Routine 02/04/2020 4:46 PM Infection Upper Results for this RNA, V RUN BOAT OPERATOR Respiratory procedure are i n the results section. documented in this encounter Results SARS Coronavirus-2 RNA, V Symptomatic (02/04/2020 4:46 PM RUN BOAT OPERATOR) [facility] Method Time Signature SARS-CoV-2 Swab, 02/05/2020 MKTO Specimen Nasopharynx 5:43 PM RUN BOAT OPERATOR Source SARS CoV-2 Undetected Undetected 02/05/2020 MKTO RNA, TMA 5:43 PM RUN BOAT OPERATOR Comment: SARS-CoV-2 RNA absent. This result does not rule out COVID-19 in the patient, as the sensitivity of the test depends o n the timing of the specimen collection and the quality of the specim en. Result should be correlated with patient's history and clinical presentat ion. ----ADDITIONAL INFORMATION---- This test is performed using the Aptima SARS-CoV-2 assay ([employer] which has received Emergency Use Authori zation (EUA) by the U.S. Food and Drug Administration. Fact sheets for this Emergency Use Autho rization (EUA) assay can be found at the following links: For Healthcare Providers: https://www.fd a.gov/media/203172/download For Patients: https://www.fda.gov/media/ 764072/download Specimen Anatomical Collection Method Collection Time Receive d Time (Source) Location / / Volume Laterality Varies 02/04/2020 4:46 PM 0 4:59 (Nasopharynx) RUN BOAT OPERATOR AM RUN BOAT OPERATOR Boris García D.O. LAB MICROBIOLOGY - GENERAL O RDERABLES Performing Organization Address City/State/ZIP Code Phon e Number [facility]- [address] [place] [address] [place] [address] System [address] documented in this encounter Visit Diagnoses Diagnosis Infection Upper Respiratory - Primary documented in this encounter Additional Health Concerns Infection Onset Date Last Indicated Resolved Time COVID19 Pending 02/04/2020 02/04/2020 02/05/2020 5:44 PM RUN BOAT OPERATOR Assessment Noted Time PHQ-9 Depression Total Score: 21 04/07/2019 8:00 PM CS T documented as of this encounter Care Teams Tire Adjuster Relationship Specialty Start Date End Date Zoë Nick, DEPUTY COUNTY CLERK, C.N.P. PCP - General Family Medicine 11/19/17 11/29/20 [address] [place] [address] documented as of this encounter
--- OUTSIDE RECORDS SUMMARY | 2022-02-02 11:00 | XMS_ITS | Encounter Summary ---
:1980 Author Organization [facility] Address [address] [place] [address] Care Team Providers Name Role Phone Zoë Nick APRN, C.N.P. Primary Care Provider [phone] Encounter Details Date Type Department Care Team Description 11/14/2019 Orders Only Department of Obstetrics and Mccullough, Rebecca Gillespie APRN, Gynecology in [place], [facility].N[facility]P., [facility] [place] [address] [place] [address] [facility] [phone] Social History Tobacco Use Types Packs/Day Years [...] you attend oriental orthodox or Never 2019 advent services? Do you belong to any clubs [...] documented as of this encounter Care Teams Security Tester Relationship Specialty Start Date End Date Zoë Nick, TIM, C.N.P. PCP - General Family Medicine 11/19/17 11/29/[address] [address] documented as of this encounter
--- OUTSIDE RECORDS SUMMARY | 2022-02-02 11:00 | XMS_ITS | Encounter Summary ---
:[address] [facility] Address [address] [place] [address] Care Team Providers Name Role Phone Zoë Nick APRN, C.N.P. Primary Care Provider [phone] Encounter Details Date Type Department Care Team Description 11/10/2019 Clinical Communication Department of Bibi Ocampo, Medicine, [place] TIM, C.N.P. Clinic, in [facility] [address] [place], [place] [address] [facility] [address] [place], [place] [phone] [address] (Work) [phone] Social History Tobacco Use Types Packs/Day Years [...] or relatives? How often do you attend methodist or Never 2019 latter day services? Do you belong to any clubs or No 01/29/2019 organizations such as methodist groups, unions, fraternal or athletic groups, or [...] Notes Telephone Encounter - Destiny Collins APRN, C.NAna Haynes, M.S.N. - 11/11/2019 12:26 AM CDT I [...] is currently scheduled with Destiny Collins in [facility] 12/16. Is there any chance that she [...] documented as of this encounter Care Teams Books Salesperson Relationship Specialty Start Date End Date Zoë Nick, TIM, C.N.P. PCP - General Family Medicine 11/19/17 11/29/[address] [address] documented as of this encounter
--- OUTSIDE RECORDS SUMMARY | 2022-02-02 11:00 | XMS_ITS | Encounter Summary ---
:[address] [facility] Address [address] [place] [address] Care Team Providers Name Role Phone Zoë Yanez APRN, C.N.P. Primary Care Provider [phone] Reason for Visit Reason Comments Med Refill Encounter Details Date Type Department Care Team Description 12/22/2019 Refill Department of Family Medicine, Bibi Yanez APRN, Med Refill [facility], in [place], [place] [address] [place] [address] [place] [address] [phone] Social History Tobacco Use Types Packs/Day Years [...] or relatives? How often do you attend hinduism or Never 2019 tenriism services? Do you belong to any clubs or No 01/29/2019 organizations such as hinduism groups, unions, fraternal or athletic groups, or [...] this encounter Miscellaneous Notes Telephone Encounter - Lore Eldridge L.P.N. - 12/23/2019 4:35 PM CDT SUBJECTIVE CHIEF COMPLAINT / REASON FOR CALL Med Refill Information Discussed Patient given advisement from provider PLAN Disposition/Recommendation: recommended continue engagement in self-management activities Information/Education: patient/caller able to teach back Caller agreeable to plan of care: yes The following references were used: provider zoë yanez cnp Telephone Encounter - Roger Irwin - 12/23/2019 4:23 PM CDT Patient calling back to the nurse. I was unable to reach the nurse. Please call the patient back. Okay to leave a detailed message on voicemail Telephone Encounter - Lore Eldridge L.P.N. - 12/23/2019 10:17 AM CDT Voice mail left for patient to return call for advisement Telephone Encounter - Elizabeth Coburn L.P.N. - 12/22/2019 11:42 AM CDT Images from the original note were not included. Attempted to reach, left a message to return call. Zoë Yanez APRN, C.Elizabeth Clinton L.PHarvinder Caller: Unspecified (Today, ??9:42 AM) ?? Please let her know that insurance will only cover 1 tablet daily and that 2 tablets daily is too much anyway. ??There are long-term risks of high-dose proton pump inhibitors including bone loss. ??If 1 tablet daily isn't enough she could take an xavb-twg-[id number] Tums or Pepcid if needed Telephone Encounter - Allyn Kaye - 12/22/2019 9:42 AM CDT Images from the original note were not included. Nurse Review: Pharmacy Communication Provider: Zoë Yanez APRN, C.N.P. Medication: Pantoprazole tab Strength: 40 mg Frequency: Take one tablet by mouth twice a day before meals Pharmacy: [facility] Comment: documented in this encounter Plan of Treatment Not on filedocumented as of this encounter Visit Diagnoses Diagnosis Reflux Esophageal documented in this encounter Additional Health Concerns Assessment Noted Time PHQ-9 Depression Total Score: 21 04/07/2019 8:00 PM CS T documented as of this encounter Care Teams Uniform Attendant Relationship Specialty Start Date End Date Zoë Yanez APRN, C.N.P. PCP - General Family Medicine 11/19/17 11/29/[address] [address] documented as of this encounter
--- OUTSIDE RECORDS SUMMARY | 2022-02-02 11:00 | XMS_ITS | Encounter Summary ---
:1980 Author Organization [facility] Address [address] [place] [address] Care Team Providers Name Role Phone Zoë Nick APRN, C.NDallas Primary Care Provider [phone] Encounter Details Date Type Department Care Team Description 02/04/2020 Admin Visit Department of Family Medicine, [address] [address] [facility] [place] [phone] Social History Tobacco Use Types Packs/Day Years [...] many times do you More than three jlues es a week 01/29/2019 talk on the phone with family, friends, or neighbors? How often do you get together with friends Twice a week 10/24/2019 or relatives? How often do you attend anabaptist or Never 2019 buddhist services? Do you belong to any clubs or No 01/29/2019 organizations such as anabaptist groups, unions, fraternal or athletic groups, or [...] or the highest technical, or vocational p rogram degree you have received? Sex Assigned at Date Recorded Female 12/18/2017 11:00 AM CDT documented as of this encounter Plan of Treatment Not on filedocumented as of this encounter Visit Diagnoses Not on filedocumented in this encounter Additional Health Concerns Infection Onset Date Last Indicated Resolved Time COVID19 Pending 02/04/2020 02/04/2020 02/05/2020 5:44 PM PIPE FINISHING SUPERVISOR Assessment Noted Time PHQ-9 Depression Total Score: 21 04/07/2019 8:00 PM CS T documented as of this encounter Care Teams Thermal Technician Relationship Specialty Start Date End Date Zoë Nick, TIM, C.N.P. PCP - General Family Medicine 11/19/17 11/29/[address] [phone] documented as of this encounter
--- OUTSIDE RECORDS SUMMARY | 2022-02-02 11:00 | XMS_ITS | Encounter Summary ---
:1980 Author Organization [facility] Address [address] [place] [address] Care Team Providers Name Role Phone Zoë Nick APRN, C.N.P. Primary Care Provider [phone] Reason for Visit Reason Comments Med Refill Encounter Details Date Type Department Care Team Description 05/03/2020 Refill Department of Family Medicine, Bibi Nick APRN, Med Refill [facility], [place] [address] [address] [place] [address] [phone] Social History Tobacco Use Types Packs/Day Years [...] do you attend buddhism or Never 2019 taoism services? Do you belong to any clubs [...] highest level of school Associate degree: anisatiesha oakleyalvaro, 10/24/2019 you have completed or the highest [...] documented as of this encounter Care Teams Business Librarian Relationship Specialty Start Date End Date Zoë Nick, MUSIC ARTIST, C.N.P. PCP - General Family Medicine 11/19/17 11/29/[address] [address] documented as of this encounter
--- OUTSIDE RECORDS SUMMARY | 2022-02-02 11:00 | XMS_ITS | Encounter Summary ---
:1980 Author Organization [facility] Address [address] [place] [address] Care Team Providers Name Role Phone Zoë Nick APRN, C.NDallas Primary Care Provider [phone] Encounter Details Date Type Department Care Team Description 12/04/2019 Hospital Encounter Department of Laboratory Giovana Jenkins, [facility]ps[facility] [address] [address] [address] [place] [address] [phone] Social History Tobacco Use Types Packs/Day Years [...] or relatives? How often do you attend cheondoism or Never 2019 restorationist services? Do you belong to any clubs or No 01/29/2019 organizations such as cheondoism groups, unions, fraternal or athletic groups, or [...] AM CDT documented as of this encounter Medications at Time of Discharge Medication Sig Dispensed Refills Start Date End Date acamprosate (CAMPRAL) 333 0 04/11/2019 mg EC tablet acetaminophen (TYLENOL) Take by mouth every 0 500 mg capsule 6 (six) hours as needed for pain. krwnorn-sgtftxpwfzgck-jwvw Take 1 tablet by 0 eine (EXCEDRIN MIGRAINE) mouth every 6 (six) 250-250-65 mg per tablet hours as needed for pain. bismuth subsalicylate Take 30 mL by mouth 0 (PEPTO BISMOL) 262 mg/15 every 6 (six) hours mL suspension as needed for indigestion. cetirizine (for_ZyrTEC) 10 Take 10 mg by mouth 0 09/20/2015 mg tablet daily as needed. clindamycin (for_CLEOCIN Apply 1 application 0 T) 1 % lotion topically 2 (two) times a day as needed. For hidradenitis suppurativa divalproex (DEPAKOTE ER) 0 10/09/2019 500 mg 24 hr tablet docusate sodium (COLACE) Take 100 mg by 0 100 mg capsule mouth 2 (two) times a day as needed. gabapentin (NEURONTIN) 300 Take 300 mg by 0 mg capsule mouth 3 (three) times a day. gabapentin (NEURONTIN) 600 0 0 mg tablet hydrOXYzine (ATARAX) 25 mg 0 0 tablet levonorgestrel (MIRENA) 20 1 each by 0 mcg/24 hr (5 years) IUD intrauterine route once. Place 06/01/2017 to be removed in 5 years lidocaine (LMX) 4 % cream Apply 1 application 0 topically 4 (four) times a day as needed for pain. For knee pain melatonin 3 mg tablet Take 3 mg by mouth 0 at bedtime. multivitamin capsule Take 1 capsule by 0 mouth daily. pantoprazole (PROTONIX) 40 Take 1 tablet (40 90 tablet 3 mg EC tabletIndications: mg total) by mouth Reflux Esophageal every morning before breakfast. divalproex (DEPAKOTE ER) 0 05/05/2019 02/17/2020 250 mg 24 hr tablet fluconazole (DIFLUCAN) 150 Take 1 tablet today 2 tablet 0 10/24/2019 02/17/2020 mg tabletIndications: and 1 tablet in 4 Vaginitis Yeast days. gemfibrozil (LOPID) 600 mg Take 1 tablet (600 180 tablet 3 0 04/28/2019 05/04/2020 tabletIndications: mg total) by mouth Hypertriglyceridemia 2 (two) times a day. ibuprofen (ADVIL,MOTRIN) Take 600 mg by 0 02/17/2020 200 mg capsule mouth every 6 (six) hours as needed for pain. lithium carbonate 300 mg Take 300 mg by 0 02/17/2020 tablet mouth 2 (two) times a day. 300 mg am and 1200 mg pm (prescribed by psych) metroNIDAZOLE (METROGEL) One applicatorful 70 g 1 10/0112/24/2019 0.75 % vaginal twice weekly as gelIndications: Vaginosis directed Bacterial naltrexone (DEPADE) 50 mg Take 50 mg by mouth 0 02/17/2020 tablet daily. OLANZapine (ZyPREXA) 15 mg 0 0 02/17/2020 tablet propranolol (INDERAL) 10 Take 10 mg by mouth 0 02/17/2020 mg tablet as needed. For anxiety documented as of this encounter Plan of Treatment Not on filedocumented as of this encounter Procedures Procedure Name Priority Date/Time Associated Comments Diagnosis CELIAC DISEASE Routine 12/04/2019 10:41 Dyspepsia Results f or this COMPREHENSIVE CASCADE AM CDT proced ure are in the results section. TISSUE TRANSGLUTAMINASE Routine 12/04/2019 10:41 Results for this (TTG) AB, IGA, S AM CDT procedure a re in the results section. CBC WITHOUT Routine 12/04/2019 10:41 Dyspepsia Results for this DIFFERENTIAL, B AM CDT procedure ar e in the results section. C-REACTIVE PROTEIN Routine 12/04/2019 10:41 Dyspepsia Resul ts for this (CRP), S/P AM CDT procedure are i n the results section. documented in this encounter Results tTG (Tissue Transglutaminase), Antibody, IgA (12/04/2019 10:41 AM CDT) [facility] Method Time Signature Tissue <1.2 <4.0 12/05/2019 [facility] Transglutaminase Ab, (Negative 3:07 PM CDT IgA, S ) U/mL Specimen Anatomical Collection Method Collection Time Receive d Time (Source) Location / / Volume Laterality Blood 12/04/2019 10:41 12/05/2019 8:05 AM CDT AM CDT Soft Results Interface LAB BLOOD ADD-ON Performing Organization Address City/State/[facility] Code Phon e Number [facility] [address] [place], [place] [address] [place] [address] CENTER [facility] [place] [address] Laboratory Medicine and Pathology [address] STONE (ABNORMAL) CBC without Differential (12/04/2019 10:41 AM CDT) [facility] Method Time Signature Hemoglobin 12.6 11.6 - 12/04/2019 FB60 15.0 g/dL 11:21 AM CDT Hematocrit 37.0 35.5 - 12/04/2019 FB60 44.9 % 11:21 AM CDT Erythrocytes 4.09 3.92 - 12/04/2019 FB60 5.13 11:21 AM CDT x10(12)/L MCV 90.5 78.2 - 12/04/2019 FB60 97.9 fL 11:21 AM CDT RBC Distrib Width 14.0 12.2 - 12/04/2019 FB60 16.1 % 11:21 AM CDT Platelet Count 423 (H) 157 - 371 12/04/2019 FB60 x10(9)/L 11:21 AM CDT Leukocytes 13.5 (H) 3.4 - 9.6 12/04/2019 FB60 x10(9)/L 11:21 AM CDT Specimen Anatomical Collection Method Collection Time Receive d Time (Source) Location / / Volume Laterality Blood (Blood, 12/04/2019 10:41 12/04/2019 Venous) AM CDT 10:41 AM CDT Bridgette Jenkins P.A.-C. LAB BLOOD ADD-ON Performing Organization Address City/State/ZIP Code Phon e Number [facility]- [address] [place] [address] [facility] [address] [place] [address] System in [place] [address] Celiac Disease Comprehensive [place] (12/04/2019 10:41 AM CDT) [facility] Method Time Signature HLA-DQA1 04:01,05: Not Applicable 12/10/2019 DBB8 Locus 01 9:20 AM CDT Molecular HLA-DQB1 02:01,04: Not Applicable 12/10/2019 D[facility] Locus 02 9:20 AM CDT Molecular Comment: DQ Serologic Equivalent: 2,4 Celiac Gene Pairs Present? Yes 12/10/2019 9: 20 AM CDT DBB8 Comment: Method: Molecular typing of HLA antigens performed using reverse SSOP and/or SSP methods, reporte d as serological equivalents and low to medium resolution molecular values. CLIA: [id number] ??CLIA Therapeutic Radiologist: HUMBLE DWYER MD,PhD Immunoglobulin A (IgA), 144 61 - 356 12/05/2019 7:42 AM SDSC S mg/dL CDT Celiac Disease Permissive genes present, al though serology is negative. Celiac disease 12/11/2019 9:27 PM SDSC Interpretation unlikely. However, approxima tely 10% of patients with celiac disease are CDT seronegative. Also, patients who are adhering to a gluten-fr ee diet may be seronegative. Specimen Anatomical Collection Method Collection Time Receive d Time (Source) Location / / Volume Laterality Blood (Blood, 12/04/2019 10:41 12/05/2019 7:46 Venous) AM CDT AM CDT Narrative [facility] NIDIA Montes - 12/11/2019 9:27 PM CDT Specimen Information: Specimen ID: [id number] Specimen Type: Blood Specimen Collection Start Date: 0 10:41 AM Specimen Received Date: 12/05/2019 ??7:46 AM Specimen ID: [id number] Specimen Type: Blood Specimen Collection Start Date: 0 10:41 AM Specimen Received Date: 12/05/2019 ??6:36 AM Bridgette Jenkins P.A.-C. LAB BLOOD NON ADD-ON Performing Organization Address City/State/ZIP Code Phon e Number [facility] [address] [place], [place] [address] [address]BB[address] [place] [address] Laboratories-[facility] [address] [facility] [place] [address] Laboratory Medicine and Pathology [address] STONE (ABNORMAL) CRP (C-Reactive Protein) (12/04/2019 10:41 AM CDT) P athologist Signature C-Reactive 19.0 (H) <=8.0 mg/L 12/04/2019 [facility] Protein (CRP), 1:28 PM CDT P Specimen Anatomical Collection Method Collection Time Receive d Time (Source) Location / / Volume Laterality Blood (Blood, 12/04/2019 10:41 12/04/2019 1:05 Venous) AM CDT PM CDT Bridgette Jenkins P.A.-C. LAB BLOOD ADD-ON Performing Organization Address City/State/ZIP Code Phon e Number [facility]- [address] [place] [address] [place] [address] System in [place] [address] documented in this encounter Visit Diagnoses Diagnosis Dyspepsia documented in this encounter Additional Health Concerns Assessment Noted Time PHQ-9 Depression Total Score: 21 04/07/2019 8:00 PM CS T documented as of this encounter Care Teams Territory Supervisor Relationship Specialty Start Date End Date Zoë Nick, TIM, C.N.P. PCP - General Family Medicine 11/19/17 11/29/[address] [place] [address] documented as of this encounter
--- OUTSIDE RECORDS SUMMARY | 2022-02-02 11:00 | XMS_ITS | Encounter Summary ---
:1980 Author Organization [facility] Address [address] [place] [address] Care Team Providers Name Role Phone Zoë Nick APRN, C.N.P. Primary Care Provider [phone] Encounter Details Date Type Department Care Team Description 11/14/2019 Clinical Communication Department of Rebecca Mccullough, Obstetrics and TIM C.N.P., Gynecology in [facility] [address] [place] [address] [facility] [phone] Social History Tobacco Use Types Packs/Day Years [...] or relatives? How often do you attend shinto or Never 2019 zoroastrianism services? Do you belong to any clubs or No 01/29/2019 organizations such as shinto groups, unions, fraternal or athletic groups, or [...] this encounter Miscellaneous Notes Telephone Encounter - Raisa Root R.N. - 11/14/2019 3:09 PM CDT PLAN The following information was provided: Rebecca Mccullough's recommendations Information/Education: patient/caller able to teach back The following references were used: provider Rebecca Mccullough Telephone Encounter - Raisa Root R.N. - 11/14/2019 2:50 PM CDT Left message to call back Telephone Encounter - Johanna Villavicencio - 11/14/2019 1:52 PM CDT Reason for Communication: Patient called in and wants Rebecca to know she has a yeast infection and is wondering if she can get diflucan before the weekemnd Current Can Nursing/Provider leave a detailed message?: Yes Did the patient refuse triage through Nurse line? (for symptom based concerns): Action Needed: Please send to [facility] Name of Medication (if relevant): Diful documented in this encounter Plan of Treatment Not on filedocumented as of this encounter Visit Diagnoses Not on filedocumented in this encounter Additional Health Concerns Assessment Noted Time PHQ-9 Depression Total Score: 21 04/07/2019 8:00 PM CS T documented as of this encounter Care Teams Blue Split Trimmer Relationship Specialty Start Date End Date Zoë Nick APRN, C.N.P. PCP - General Family Medicine 11/19/17 11/29/[address] [address] documented as of this encounter
--- OUTSIDE RECORDS SUMMARY | 2022-02-02 11:00 | XMS_ITS | Encounter Summary ---
:1980 Author Organization [facility] Address [address] [place] [address] Care Team Providers Name Role Phone Zoë Nick APRN, C.N.P. Primary Care Provider [phone] Encounter Details Date Type Department Care Team Description 10/01/2019 Clinical Communication Department of Bibi Ocampo, Medicine, [place] TIM, C.N.P. Clinic, in [facility] [address] [place], [place] [address] [facility] [address] [place], [place] [phone] [address] (Work) [phone] Social History Tobacco Use Types Packs/Day Years [...] or relatives? How often do you attend islam or Never 2019 tenriism services? Do you belong to any clubs or No 01/29/2019 organizations such as islam groups, unions, fraternal or athletic groups, or [...] this encounter Miscellaneous Notes Telephone Encounter - Ольга العلي L.PSarahN. - 10/01/2019 10:44 AM CDT Faxed referral and face sheet to [facility] [phone] documented in this encounter Plan of Treatment Not on filedocumented as of this encounter Visit Diagnoses Not on filedocumented in this encounter Additional Health Concerns Assessment Noted Time PHQ-9 Depression Total Score: 21 04/07/2019 8:00 PM CS T documented as of this encounter Care Teams Final Inspector Shuttle Relationship Specialty Start Date End Date Zoë Nick, TIM, C.N.P. PCP - General Family Medicine 11/19/17 11/29/[address] [address] documented as of this encounter
--- OUTSIDE RECORDS SUMMARY | 2022-02-02 11:00 | XMS_ITS | Encounter Summary ---
:1980 Author Organization [facility] Address [address] [place] [address] Care Team Providers Name Role Phone Zoë Nick APRN, C.NDallas Primary Care Provider [phone] Encounter Details Date Type Department Care Team Description 01/08/2020 Hospital Encounter Department of Hoda Horton iscorky Medication; Laboratory Medicine K, ELECTRO OPTICAL ENGINEER Other Bipolar Disorder (HCC) in [address] [place] [phone] Social History Tobacco Use Types Packs/Day Years [...] or relatives? How often do you attend mandaen or Never 2019 alevism services? Do you belong to any clubs or No 01/29/2019 organizations such as mandaen groups, unions, fraternal or athletic groups, or [...] 6 (six) hours as needed for pain. gjsxzpf-tmoirlqikwnde-ngyf Take 1 tablet by 0 eine (EXCEDRIN [...] 3 mg by mouth 0 at bedtime. metroNIDAZOLE (METROGEL) ONE APPLICATORFUL 70 g 0 12/02 0.75 % vaginal TWICE WEEKLY gelIndications: Vaginosis DIRECTED Bacterial multivitamin capsule Take 1 capsule by 0 [...] and 1200 mg pm (prescribed by psych) naltrexone (DEPADE) 50 mg Take 50 mg by mouth 0 02/17/2020 tablet daily. OLANZapine (ZyPREXA) 15 mg 0 0 02/17/2020 tablet propranolol (INDERAL) 10 Take 10 mg by mouth 0 02/17/2020 mg tablet as needed. For anxiety documented as of this encounter Plan of Treatment Not on filedocumented as of this encounter Procedures Procedure Name Priority Date/Time Associated Comments Diagnosis CBC WITH DIFFERENTIAL, B Routine 01/08/2020 9:23 High Risk Results for this AM CDT Medication procedure are in Other Bipolar the results Disorder (HCC) section. BUN (BLOOD UREA Routine 01/08/2020 9:23 High Risk Results f or this NITROGEN), S/P AM CDT Medication procedure are in Other Bipolar the results Disorder (HCC) section. ALANINE AMINOTRANSFERASE Routine 01/08/2020 9:23 High Risk Results for this (ALT), S/P AM CDT Medication procedure are in Other Bipolar the results Disorder (HCC) section. ASPARTATE Routine 01/08/2020 9:23 High Risk Results for this AMINOTRANSFERASE (AST), AM CDT Medicati on procedure are in S/P Other Bipolar the results Disorder (HCC) section. ALKALINE PHOSPHATASE, Routine 01/08/2020 9:23 High Risk Res ults for this S/P AM CDT Medication procedure are in Other Bipolar the results Disorder (HCC) section. CREATININE WITH EGFR, Routine 01/08/2020 9:23 High Risk Res ults for this S/P AM CDT Medication procedure are in Other Bipolar the results Disorder (HCC) section. BILIRUBIN, TOT, S/P Routine 01/08/2020 9:23 High Risk Resul ts for this AM CDT Medication procedure are in Other Bipolar the results Disorder (HCC) section. CARBAMAZEPINE LEVEL, Routine 01/08/2020 9:23 High Risk Resu lts for this TOT, S AM CDT Medication procedure are in Other Bipolar the results Disorder (HCC) section. documented in this encounter Results BUN (Blood Urea Nitrogen) (01/08/2020 9:23 AM CDT) athologist Signature BUN (Blood Urea 8 6 - 21 01/08/2020 [place] Nitrogen), P mg/dL 11:47 AM CDT Specimen Anatomical Collection Method Collection Time Receive d Time (Source) Location / / Volume Laterality Blood (Blood, 01/08/2020 9:23 AM 01/08/20 Venous) CDT 10:32 AM CDT Hoda Horton ELECTRO OPTICAL ENGINEER LAB BLOOD ADD-ON Performing Organization Address City/State/ZIP Code Phon e Number [facility]- [address] [place] [address] [place] [address] System in [place] [address] [facility] Carbamazepine, Total (01/08/2020 9:23 AM CDT) athologist Signature Carbamazepine, 6.0 4.0 - 12.0 01/08/2020 SUHAIL Tot, S mcg/mL 5:51 PM CDT Specimen Anatomical Collection Method Collection Time Receive d Time (Source) Location / / Volume Laterality Blood (Blood, 01/08/2020 9:23 AM 01/08/20 4:45 Venous) CDT PM CDT [facility]oda Horton ELECTRO OPTICAL ENGINEER LAB BLOOD ADD-ON Performing Organization Address City/State/ZIP Code Phon e Number [facility]- [facility] [place], [place] [address] [facility] [place] [address] [place] [place] [facility] [place] [address] [facility] [address] AST (Aspartate Aminotransferase) (01/08/2020 9:23 AM CDT) Patholo gist Method Time Signature Aspartate 25 8 - 43 01/08/2020 [place] Aminotransferase U/L 11:47 AM CDT (AST), P Specimen Anatomical Collection Method Collection Time Receive d Time (Source) Location / / Volume Laterality Blood (Blood, 01/08/2020 9:23 AM 01/08/20 Venous) CDT 10:32 AM CDT [facility] ELECTRO OPTICAL ENGINEER LAB BLOOD ADD-ON Performing Organization Address City/State/ZIP Code Phon e Number [facility]- [address] [facility] [place] [address] [place] [address] System in [place] [address] [place] [address] ALT (Alanine Aminotransferase) (01/08/2020 9:23 AM CDT) [facility] gist Method Time Signature Alanine 22 7 - 45 01/08/2020 [place] Aminotransferase U/L 11:47 AM CDT (ALT), P Specimen Anatomical Collection Method Collection Time Receive d Time (Source) Location / / Volume Laterality Blood (Blood, 01/08/2020 9:23 AM 01/08/20 Venous) CDT 10:32 AM CDT [facility] H[facility] ELECTRO OPTICAL ENGINEER LAB BLOOD ADD-ON Performing Organization Address City/State/ZIP Code Phon e Number [facility]- [address] [facility] [place] [address] [place] [address] System in [place] [address] Bilirubin, Total (01/08/2020 9:23 AM CDT) P athologist Signature Bilirubin, 0.4 <=1.2 mg/dL 01/08/2020 [place] Total, P 11:47 AM CDT Specimen Anatomical Collection Method Collection Time Receive d Time (Source) Location / / Volume Laterality Blood (Blood, 01/08/2020 9:23 AM 01/08/20 Venous) CDT 10:32 AM CDT [facility] H[facility] ELECTRO OPTICAL ENGINEER LAB BLOOD ADD-ON Performing Organization Address City/State/ZIP Code Phon e Number [facility]- [address] [place] [address] [place] [address] System in [place] [address] Alkaline Phosphatase (01/08/2020 9:23 AM CDT) athologist Signature Alkaline 94 35 - 104 01/08/2020 [place] Phosphatase, P U/L 11:47 AM CDT Specimen Anatomical Collection Method Collection Time Receive d Time (Source) Location / / Volume Laterality Blood (Blood, 01/08/2020 9:23 AM 01/08/20 Venous) CDT 10:32 AM CDT [facility] H[facility] ELECTRO OPTICAL ENGINEER LAB BLOOD ADD-ON Performing Organization Address City/[facility]/ZIP Code Phon e Number [facility]- [address] [place] [address] [place] [address] System in [place] [address] Creatinine with Estimated GFR (01/08/2020 9:23 AM CDT) athologist Signature Creatinine 0.75 0.59 - 01/08/2020 [place] 1.04 mg/dL 11:47 AM CDT eGFR-Black/Afric >90 >=60 01/08/2020 [place] an Greek mL/min/BSA 11:47 AM CDT Comment: ----ADDITIONAL INFORMATION---- Estimated GFR calculated using the 2009 CKD_EPI creatinine equation. eGFR Non-Black/ >90 >=60 mL/min/BSA 01/08/2020 11:47 AM CDT [facility] Comment: ----ADDITIONAL INFORMATION---- Estimated GFR calculated using the 2009 CKD_EPI creatinine equation. Specimen Anatomical Collection Method Collection Time Receive d Time (Source) Location / / Volume Laterality Blood (Blood, 01/08/2020 9:23 AM 01/08/20 Venous) CDT 10:32 AM CDT Hoda Horton ELECTRO OPTICAL ENGINEER LAB BLOOD ADD-ON Performing Organization Address City/State/ZIP Code Phon e Number [facility]- [address] [place] [address] [place] [address] System in [place] [address] (ABNORMAL) CBC with Differential, Blood (01/08/2020 9:23 AM CDT) [facility] gist Method Time Signature Hemoglobin 14.0 11.6 - 01/08/2020 FB60 15.0 g/dL 9:32 AM CDT Hematocrit 41.6 35.5 - 01/08/2020 FB60 44.9 % 9:32 AM CDT Erythrocytes 4.34 3.92 - 01/08/2020 FB60 5.13 9:32 AM CDT x10(12)/L MCV 95.9 78.2 - 01/08/2020 FB60 97.9 fL 9:32 AM CDT RBC Distrib Width 14.1 12.2 - 01/08/2020 FB60 16.1 % 9:32 AM CDT Platelet Count 350 157 - 371 01/08/2020 FB60 x10(9)/L 9:32 AM CDT Leukocytes 8.6 3.4 - 9.6 01/08/2020 FB60 x10(9)/L 9:32 AM CDT Neutrophils 5.06 1.56 - 01/08/2020 FB60 6.45 9:32 AM CDT x10(9)/L Lymphocytes 1.54 0.95 - 01/08/2020 FB60 3.07 9:32 AM CDT x10(9)/L Monocytes 0.56 0.26 - 01/08/2020 FB60 0.81 9:32 AM CDT x10(9)/L Eosinophils 1.45 (H) 0.03 - 01/08/2020 FB60 0.48 9:32 AM CDT x10(9)/L Basophils 0.02 0.01 - 01/08/2020 FB60 0.08 9:32 AM CDT x10(9)/L Specimen Anatomical Collection Method Collection Time Receive d Time (Source) Location / / Volume Laterality Blood (Blood, 01/08/2020 9:23 AM 01/08/20 9:23 Venous) CDT AM CDT Hoda Horton ELECTRO OPTICAL ENGINEER LAB BLOOD ADD-ON Performing Organization Address City/State/ZIP Code Phon e Number [facility]- [address] [place] [address] [facility] [address] [place] [address] System in [place] [address] documented in this encounter Visit Diagnoses Diagnosis High Risk Medication Other Bipolar Disorder (HCC) documented in this encounter Additional Health Concerns Assessment Noted Time PHQ-9 Depression Total Score: 04/07/2019 8:00 PM CS T documented as of this encounter Care Teams Associate Account Executive Relationship Specialty Start Date End Date Zoë Nick, TIM, C.N.P. PCP - General Family Medicine 11/19/17 11/29/20 [address] [place] [address] documented as of this encounter
--- OUTSIDE RECORDS SUMMARY | 2022-02-02 11:00 | XMS_ITS | Encounter Summary ---
:[address] [facility] Address [address] [place] [address] Care Team Providers Name Role Phone ShubhamZoë felix APRN C.N.P. Primary Care Provider Reason for Referral Outpatient (Routine) - Closed Specialty Diagnoses / Procedures Referred By Contact Refer red To Contact Obstetrics and Diagnoses PAR Rebecca Mccullough, TIM, [facility] Gynecology C.N.P., M.S.N. [address] [address] Referral ID Status Reason Start Date Expiration Date Visits Requ ested Visits Authorized [id number] Closed 10/16/2019 10/15/2020 1 1 Scheduling Instructions Recheck BV Encounter Details Date Type Department Care Team Description 10/16/2019 Orders Only Department of Obstetrics Rebecca Mccullough V aginosis [facility] and Gynecology in [place], [place] M.S.N. [address] [place] [address] [facility] [phone] Social History Tobacco Use Types Packs/Day Years [...] or relatives? How often do you attend adventism or Never 2019 scientology services? Do you belong to any clubs or No 01/29/2019 organizations such as adventism groups, unions, fraSocialplex Inc[employer] or athletic groups, or school groups? How [...] of this encounter Plan of Treatment Scheduled Referrals Name Type Priority Associated Order Schedule Diagnoses Obstetrics and Outpatient Referral Routine Expect ed: Gynecology office 10/23/2019 visit (clinic) (Approximate) , Expires: 10/15/2022 documented as of this encounter Visit Diagnoses Diagnosis Vaginosis Bacterial documented in this encounter Additional Health Concerns Assessment Noted Time PHQ-9 Depression Total Score: 21 04/07/2019 8:00 PM CS T documented as of this encounter Care Teams Pediatric Cns Relationship Specialty Start Date End Date Zoë Nick, TIM, C.N.P. PCP - General Family Medicine 11/19/17 11/29/[address] [phone] documented as of this encounter
--- OUTSIDE RECORDS SUMMARY | 2022-02-02 11:00 | XMS_ITS | Encounter Summary ---
:1980 Author Organization [facility] Address [address] [place] [address] Care Team Providers Name Role Phone Zoë Nick APRN, C.N.P. Primary Care Provider [phone] Encounter Details Date Type Department Care Team Description 07/02/2020 Orders Only [facility] PCP [facility] Sa wu Ferrari M.D. [address] [place], [place] [phone] (Wo rk) Social History Tobacco Use Types Packs/Day Years [...] or relatives? How often do you attend yazidi or Never 2019 evangelical services? Do you belong to any clubs or No 01/29/2019 organizations such as yazidi groups, unions, fraternal or athletic groups, or [...] documented as of this encounter Care Teams Waiter/Waitress Take Out Relationship Specialty Start Date End Date Zoë Nick, TIM, C.N.P. PCP - General Family Medicine 11/19/17 11/29/[address] [address] documented as of this encounter
--- OUTSIDE RECORDS SUMMARY | 2022-02-02 11:00 | XMS_ITS | Encounter Summary ---
:1980 Author Organization [facility] Address [address] [place] [address] Care Team Providers Name Role Phone Zoë Nick APRN C.NSarahPSarah Primary Care Provider [phone] Reason for Visit Reason Comments COVID Inquiry Encounter Details Date Type Department Care Team Description 02/04/2020 Clinical Communication Central Appointment [facility] in [address] [address] Social History Tobacco Use Types Packs/Day Years [...] or relatives? How often do you attend caodaism or Never 2019 caodaism services? Do you belong to any clubs or No 01/29/2019 organizations such as caodaism groups, unions, fraternal or athletic groups, or [...] this encounter Miscellaneous Notes Telephone Encounter - Margarita Baez - 02/04/2020 9:10 AM CST COVID DOS/PASS Screening What is the patient requesting?: COVID-19 Testing Only (End screening - follow local process) Plan: Endpoint recommendation: Testing indicated, sent patient to [place] located at [address] [place] [address]. The entrance is on the north side of the building. A staff member will rafat you access to get inside. You must call [phone] for an appointment time.Testing hours are M-F 10 am to 5 pm and Sat-Sun 9 am to 2 pm. and Please avoid using public transportation per CDC recommendation. If you do not have personal transportation please self-quarantine until a personal transportation option is available. *Reminder if sending patient for testing in T or [facility], an email notification is required. RAL OFFICE REPAIRER SUPERVISOR documented in this encounter Plan of Treatment Not on filedocumented as of this encounter Visit Diagnoses Not on filedocumented in this encounter Additional Health Concerns Assessment Noted Time PHQ-9 Depression Total Score: 21 04/07/2019 8:00 PM CS T documented as of this encounter Care Teams Pathology Collector Relationship Specialty Start Date End Date Zoë Nick, TIM, C.N.P. PCP - General Family Medicine 11/19/17 11/29/20 [address], [place] [address] documented as of this encounter
--- OUTSIDE RECORDS SUMMARY | 2022-02-02 11:00 | XMS_ITS | Encounter Summary ---
:1980 Author Organization [facility] Address [address] [place] [address] Care Team Providers Name Role Phone Zoë Nick APRN C.N.P. Primary Care Provider [phone] Reason for Visit Reason Comments Called pt to move appointment up for sooner nelson lopez in [place] Encounter Details Date Type Department Care Team Description 11/12/2019 Clinical Communication Department of Destiny Collins Call ed pt to move Internal Medicine TIM Gillespie appointmen t up for in Nidia CSarahN.PSarah, ignacia huertas [place] Maria.N.PSarah, M.S.N. in [place] [address] [facility] [address] [place], [place] [phone] [address] Social History Tobacco Use Types Packs/Day [...] or relatives? How often do you attend restorationist or Never 2019 hoahaoism services? Do you belong to any clubs or No 01/29/2019 organizations such as restorationist groups, unions, fraternal or athletic groups, or [...] documented as of this encounter Care Teams Reed Man Relationship Specialty Start Date End Date Zoë Nick, TIM, C.N.P. PCP - General Family Medicine 11/19/17 11/29/20 [address] [place] [address] documented as of this encounter
--- OUTSIDE RECORDS SUMMARY | 2022-02-02 11:00 | XMS_ITS | Encounter Summary ---
:1980 Author Organization [facility] Address [address] [place] [address] Care Team Providers Name Role Phone Zoë Nick APRN, C.N.P. Primary Care Provider [phone] Encounter Details Date Type Department Care Team Description 06/02/2020 Orders Only [facility] PCP [facility] Zoë Nick, Hypertriglyceridemia ATHLETIC EQUIPMENT MANAGER, C.N.P. [address] [place] [address] Social History Tobacco Use Types Packs/Day Years [...] or relatives? How often do you attend congregational or Never 2019 jain services? Do you belong to any clubs or No 01/29/2019 organizations such as congregational groups, unions, fraternal or athletic groups, or [...] documented as of this encounter Care Teams Meat Stocker Relationship Specialty Start Date End Date Zoë Nick, TIM, C.N.P. PCP - General Family Medicine 11/19/17 11/29/[address] [address] documented as of this encounter
--- OUTSIDE RECORDS SUMMARY | 2022-02-02 11:00 | XMS_ITS | Encounter Summary ---
:1980 Author Organization [facility] Address [address] [place] [address] Care Team Providers Name Role Phone Zoë Nick APRN, C.N.P. Primary Care Provider [phone] Reason for Visit Reason Comments Follow-up Outpatient (Routine) - Closed Specialty Diagnoses / Procedures Referred By Contact Refer red To Contact Obstetrics and Diagnoses PAR Rebecca Mccullough APRN, [facility] C.N.P., M.S.N. [address] [address] Referral ID Status Reason Start Date Expiration Date Visits Requ ested Visits Authorized [id number] Closed 10/16/2019 10/15/2020 1 1 Encounter Details Date Type Department Care Team Description 10/24/2019 Office Visit Department of Rebecca Mccullough, Vaginosis Ba cterial Obstetrics and TIM, C.N.P., (Primary Dx) [place]necology [place] [address] [place] [address] Social History Tobacco Use Types Packs/Day [...] or relatives? How often do you attend religion or Never 2019 evangelical services? Do you belong to any clubs or No 01/29/2019 organizations such as religion groups, unions, fraternal or athletic groups, or [...] (six) hours as needed for pain. ??? lowqpkn-ffjnbyzzvodpj-habscrfj (EXCEDRIN MIGRAINE) 250-250-65 mg per tablet Take [...] Smoking ??? Allergy Seasonal ??? Arthritis Rheumatoid ([facility]) ??? Bipolar I Disorder ([facility]) ??? Disturbance Sleep 12/18/2017 ??? Fibromyalgia ??? Hidradenitis Suppurativa ??? Hypertriglyceridemia 04/28/2019 ??? Migraine Headache ??? Moderate Or Severe Use Disorder (Dependence) Alcohol Remission ([facility]) 01/29/2019 ??? Persistent Depressive Disorder ??? Posttraumatic [...] (ABNORMAL) Vaginitis Panel (10/24/2019 1:57 PM CDT) [facility] gist Method Time Signature Isi Positive (A) [...] PM CDT Authorizing Provider Result Gin Mccullough APRN C.N.P., M.S.N. LAB MICROBIOLOGY - G ENERAL ORDERABLES Performing Organization Address City/State/ZIP Code Phon e Number [facility] [address] [place] [address] [facility] [place] [address] System in [place] [address] documented in this encounter Visit Diagnoses Diagnosis Vaginosis Bacterial - Primary documented in this encounter Additional Health Concerns Assessment Noted Time PHQ-9 Depression Total Score: 21 04/07/2019 8:00 PM CS T documented as of this encounter Care Teams Gate Manager Relationship Specialty Start Date End Date Zoë Nick APRN, C.N.P. PCP - General Family Medicine 11/19/17 11/29/[address] [address] documented as of this encounter
--- OUTSIDE RECORDS SUMMARY | 2022-02-02 11:00 | XMS_ITS | Encounter Summary ---
:1980 Author Organization [facility] Address [address] [place] [address] Care Team Providers Name Role Phone Zoë Nick APRN, C.N.P. Primary Care Provider [phone] Encounter Details Date Type Department Care Team Description 11/10/2019 Clinical Communication Department of Bibi Ocampo, Medicine, [place] TIM, C.N.P. Clinic, in [facility] [address] [place], [place] [address] [facility] [address] [place], [place] [phone] [address] (Work) [phone] Social History Tobacco Use Types Packs/Day Years [...] or relatives? How often do you attend sabianist or Never 2019 restorationist services? Do you belong to any clubs or No 01/29/2019 organizations such as sabianist groups, unions, fraternal or athletic groups, or [...] encounter Miscellaneous Notes Telephone Encounter - Raisa Chambers - 11/10/2019 4:16 PM CDT ([facility] and [facility] locations only: If the patient is not having symptoms and is requesting COVID-19 Nasal Swab testing only, use the process listed in the COVID-19 Patient Requesting COVID PCR Test OTG COVID-19 [place] Patient Requesting COVID PCR Test). 1. Do you have a pending COVID test because you had symptoms or exposure to someone with COVID or you have tested positive for COVID in the last 30 days? no 2. In the past 14 days, do you, anyone in the household, or anyone you have had prolonged exposure have any of the following? a. Fever greater than or equal to 37.8 C (100.0 F)? no b. New symptoms (Specifically: headache, cough, shortness of breath, respiratory distress, sore throat, diarrhea, nausea, vomiting, chills and repeated shaking with chills, myalgia's (muscle aches), loss of smell, or change or loss of taste sensation)? no Route reply to: Scheduling Contact Number: documented in this encounter Plan of Treatment Not on filedocumented as of this encounter Visit Diagnoses Not on filedocumented in this encounter Additional Health Concerns Assessment Noted Time PHQ-9 Depression Total Score: 04/07/2019 8:00 PM CS T documented as of this encounter Care Teams Klystrom Tube Tester Relationship Specialty Start Date End Date Zoë Nick, TIM, C.N.P. PCP - General Family Medicine 11/19/17 11/29/20 [address] [place] [address] documented as of this encounter
--- OUTSIDE RECORDS SUMMARY | 2022-02-02 11:00 | XMS_ITS | Encounter Summary ---
:1980 Author Organization [facility] Address [address] [place] [address] Care Team Providers Name Role Phone Zoë Nick APRN, C.N.P. Primary Care Provider [phone] Encounter Details Date Type Department Care Team Description 10/24/2019 Orders Only Department of Rebecca Mccullough Vaginihalie higuera Obstetrics and TIM, C.N.P., (Primary Dx) Gynecology in [facility] [address] [place] [address] [facility] [phone] Social History Tobacco Use Types Packs/Day Years [...] or relatives? How often do you attend christian or Never 2019 quaker services? Do you belong to any clubs or No 01/29/2019 organizations such as christian groups, unions, fraternal or athletic groups, or [...] as of this encounter Visit Diagnoses Diagnosis Vaginitis Yeast - Primary documented in this encounter Additional Health Concerns Assessment Noted Time PHQ-9 Depression Total Score: 21 04/07/2019 8:00 PM CS T documented as of this encounter Care Teams Full Decator Operator Relationship Specialty Start Date End Date Zoë Nick, TIM, C.N.P. PCP - General Family Medicine 11/19/17 11/29/[address] [address] documented as of this encounter
--- OUTSIDE RECORDS SUMMARY | 2022-02-02 11:00 | XMS_ITS | Encounter Summary ---
:1980 Author Organization [facility] Address [address] [place] [address] Care Team Providers Name Role Phone Zoë Nick APRN, C.N.P. Primary Care Provider [phone] Reason for Visit Reason Comments Med Refill Encounter Details Date Type Department Care Team Description 12/22/2019 Refill Department of Obstetrics and Mccullough, Rebecca Gillespie APRN, Med Refill Gynecology in [place], C.N.P., M.S.N. [place] [address] [address] [facility] [phone] Social History Tobacco Use Types Packs/Day Years [...] or relatives? How often do you attend jainism or Never 2019 muslim services? Do you belong to any clubs or No 01/29/2019 organizations such as jainism groups, unions, fraternal or athletic groups, or [...] this encounter Miscellaneous Notes Telephone Encounter - Yanique Grewal L.P.N. - 12/24/2019 1:35 PM CDT Patient informed documented in this encounter Plan of Treatment Not on filedocumented as of this encounter Visit Diagnoses Diagnosis Vaginosis Bacterial documented in this encounter Additional Health Concerns Assessment Noted Time PHQ-9 Depression Total Score: 21 04/07/2019 8:00 PM CS T documented as of this encounter Care Teams Pattern Changer Relationship Specialty Start Date End Date Zoë Nick, TIM, C.N.P. PCP - General Family Medicine 11/19/17 11/29/[address] [address] documented as of this encounter
--- OUTSIDE RECORDS SUMMARY | 2022-02-02 11:00 | XMS_ITS | Encounter Summary ---
:1980 Author Organization [facility] Address [address] [place] [address] Care Team Providers Name Role Phone Zoë Nick APRN, C.N.P. Primary Care Provider [phone] Reason for Visit Reason Comments Med Refill Encounter Details Date Type Department Care Team Description 05/06/2020 Refill Department of Family Medicine, Bibi Nick APRN, Med Refill [facility], in [place] [address] [address] [place] [address] [phone] Social History Tobacco Use Types Packs/Day Years [...] do you attend congregational or Never 2019 nondenominational services? Do you belong to any clubs [...] this encounter Miscellaneous Notes Telephone Encounter - Erlinda Weber - 05/06/2020 2:23 PM CST Duplicate C LIBRARIAN documented in this encounter Plan of Treatment Not on filedocumented as of this encounter Visit Diagnoses Diagnosis Hypertriglyceridemia documented in this encounter Additional Health Concerns Assessment Noted Time PHQ-9 Depression Total Score: 21 04/07/2019 8:00 PM CS T documented as of this encounter Care Teams Obstetrics And Gynecology Professor Relationship Specialty Start Date End Date Zoë Nick, GAS TESTER, C.N.P. PCP - General Family Medicine 11/19/17 11/29/20 [address], [place] [address] documented as of this encounter
--- OUTSIDE RECORDS SUMMARY | 2022-02-02 11:00 | XMS_ITS | Encounter Summary ---
:1980 Author Organization [facility] Address [address] [place] [address] Care Team Providers Name Role Phone Zoë Nick APRN, C.NDallas Primary Care Provider [phone] Encounter Details Date Type Department Care Team Description 10/28/2019 Hospital Encounter Department of Hoda Horton tirebeca Therapy Laboratory Medicine K, [facility] Detention Not in [address] [place] [address] [place] [address] Social History Tobacco Use Types Packs/Day Years [...] do you attend shinto or Never 2019 adventism services? Do you [...] 6 (six) hours as needed for pain. fvsplgl-lerxonxnaemjx-cyny Take 1 tablet by 0 eine (EXCEDRIN [...] Name Priority Date/Time Associated Diagnosis Comme nts VALPROIC ACID Routine 10/28/2019 11:53 Medication Therapy Resu lts for this LEVEL, TOT, S AM CDT Suction Operator Not procedure are in Anticoagulant the results section. documented in this encounter Results Valproic Acid, Total (10/28/2019 11:53 AM CDT) P athologist Signature Valproic Acid, 58 50 - 125 10/28/2019 SUHAIL Tot, S mcg/mL 11:38 PM CDT Specimen Anatomical Collection Method Collection Time Receive d Time (Source) Location / / Volume Laterality Blood (Blood, 10/28/2019 11:53 10/28/2019 Venous) AM CDT 10:40 PM CDT Hoda Horton [facility] BLOOD ADD-ON Performing Organization Address City/State/ZIP Code Phon e Number [facility] [place], [place] [address] [facility] [place] [address] [facility]- [facility] [place] [address] [place] & [place] [address] documented in this encounter Visit Diagnoses Diagnosis Medication Therapy Suction Operator Not Anticoa gulant documented in this encounter Additional Health Concerns Assessment Noted Time PHQ-9 Depression Total Score: 04/07/2019 8:00 PM CS T documented as of this encounter Care Teams Dividend Clerk Relationship Specialty Start Date End Date Zoë iNck, TIM, C.N.P. PCP - General Family Medicine 11/19/17 11/29/20 [address] [facility] [place] [address] documented as of this encounter
--- OUTSIDE RECORDS SUMMARY | 2022-02-02 11:00 | XMS_ITS | Encounter Summary ---
:1980 Author Organization [facility] Address [address] [place] [address] Care Team Providers Name Role Phone Zoë Nick APRN, C.N.P. Primary Care Provider [phone] Reason for Visit Reason Comments Medical Information Encounter Details Date Type Department Care Team Description 11/12/2019 Clinical Communication Department of Zoë Nick ica Information Family MedicineAngelica APRN, [facility], C.N.P. in [place], [address] [address] Social History Tobacco Use Types Packs/Day [...] or relatives? How often do you attend baptism or Never 2019 anabaptism services? Do you belong to any clubs or No 01/29/2019 organizations such as baptism groups, unions, fraternal or athletic groups, or [...] this encounter Miscellaneous Notes Telephone Encounter - Liane Harvey - 11/13/2019 4:03 PM CDT Left message to see if she was interested in scheduling an IN TOUCH VIDEO appointment with Dr. Santos. He is available in October. Telephone Encounter - Alberto Key - 11/12/2019 12:41 PM CDT Reason for Communication: patient called and said she got a call from an riley about a sooner appt, Idid not find any info, or notes on this, and was not sure what riley called her, please advise. Current Can Nursing/Provider leave a [...] documented as of this encounter Care Teams Deliverer Pharmacy Relationship Specialty Start Date End Date Zoë Nick, FORENSIC ENGINEER, C.N.P. PCP - General Family Medicine 11/19/17 11/29/20 [address], [place] [address] documented as of this encounter
--- OUTSIDE RECORDS SUMMARY | 2022-02-02 11:00 | XMS_ITS | Encounter Summary ---
:1980 Author Organization [facility] Address [address] [place] [address] Care Team Providers Name Role Phone Zoë Nick APRN, C.N.P. Primary Care Provider [phone] Encounter Details Date Type Department Care Team Description 10/27/2019 Clinical Communication Department of Bibi Ocampo, Medicine, [place] TIM, C.N.P. Clinic, in [facility] [address] [place], [place] 300 [facility] [address] [place], [place] [phone] [address] (Work) [phone] Social History Tobacco Use Types Packs/Day Years [...] or relatives? How often do you attend tenriism or Never 2019 jain services? Do you belong to any clubs or No 01/29/2019 organizations such as tenriism groups, unions, fraternal or athletic groups, or [...] this encounter Miscellaneous Notes Telephone Encounter - Rosangela Hodge - 10/27/2019 3:02 PM CDT ([facility] and [facility] locations only: If the patient is not having symptoms and is requesting COVID-19 Nasal Swab testing only, use the process listed in the COVID-19 Patient Requesting COVID PCR Test OTG COVID-19 [place] Patient Requesting COVID PCR Test). 1. Do [...] change or loss of taste sensation)? no c. Had close contact with a patient with known or possible COVID-19 in the last 14 days? no Route reply to: Scheduling Contact Number: [phone] documented in this encounter Plan of Treatment Not on filedocumented as of this encounter Visit Diagnoses Not on filedocumented in this encounter Additional Health Concerns Assessment Noted Time PHQ-9 Depression Total Score: 21 04/07/2019 8:00 PM CS T documented as of this encounter Care Teams Certified Surgical Technician Relationship Specialty Start Date End Date Zoë Nick, REGIONAL ENGAGEMENT CONSULTANT, C.N.P. PCP - General Family Medicine 11/19/17 11/29/[address] [place] [address] documented as of this encounter
--- OUTSIDE RECORDS SUMMARY | 2022-02-02 11:00 | XMS_ITS | Encounter Summary ---
:1980 Author Organization [facility] Address [address] [place] [address] Care Team Providers Name Role Phone Zoë Nick APRN, C.N.P. Primary Care Provider [phone] Encounter Details Date Type Department Care Team Description 12/24/2019 Orders Only Department of Obstetrics and Mccullough, Rebecca Gillespie APRN, Gynecology in [place], [facility]., [facility] [address] [place] [address] [facility] [phone] Social History Tobacco Use Types Packs/Day Years [...] or relatives? How often do you attend scientology or Never 2019 holiness services? Do you belong to any clubs or No 01/29/2019 organizations such as scientology groups, unions, fraternal or athletic groups, or [...] documented as of this encounter Care Teams Railroad Dining Car Stewardess Relationship Specialty Start Date End Date Zoë Nick, TIM, C.N.P. PCP - General Family Medicine 11/19/17 11/29/[address] [address] documented as of this encounter
--- OUTSIDE RECORDS SUMMARY | 2022-02-02 11:01 | XMS_ITS | Encounter Summary ---
:1980 Author Organization [facility] Address [address] [place] [address] Care Team Providers Name Role Phone Zoë Nick APRN, C.N.P. Primary Care Provider [phone] Reason for Visit Reason Comments Other Seizures Order for [facility] Pascual hargrove Encounter Details Date Type Department Care Team Description 09/26/2019 Clinical Communication Department of Zoë Nick [facility] er Seizures Family MedicineAngelica APRN, (Order for [facility], C.N.P. [facility]) in [facility] [address] [place] [address] [phone] Social History Tobacco Use Types Packs/Day Years [...] do you attend buddhism or Never 2019 methodist services? Do you belong to any clubs [...] this encounter Miscellaneous Notes Telephone Encounter - Rahel Crouch Divina - 09/26/2019 7:33 AM CDT Thank you for your order. Our Business Office Team is working with the patient, and we are unable to schedule the appointment for Neurology at this time. The orders have been cancelled. If we obtain approval to schedule from the Business Office Team, we will reinstate the orders and contact the patient to schedule. If you have questions, please call us at [phone] or [phone]. Sincerely, [facility] Online Services for Referring Physicians Appointment Office documented in this encounter Plan of Treatment Not on filedocumented as of this encounter Visit Diagnoses Not on filedocumented in this encounter Additional Health Concerns Assessment Noted Time PHQ-9 Depression Total Score: 21 04/07/2019 8:00 PM CS T documented as of this encounter Care Teams Bass Fisher Relationship Specialty Start Date End Date Zoë Nick, FREIGHT CAR REPAIRER, C.N.P. PCP - General Family Medicine 11/19/17 11/29/[address] [address] documented as of this encounter
--- OUTSIDE RECORDS SUMMARY | 2022-02-02 11:01 | XMS_ITS | Encounter Summary ---
:1980 Author Organization [facility] Address [address] [place] [address] Care Team Providers Name Role Phone Zoë Nick APRN, C.N.P. 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 [address] [place] [address] [place] [address] Phone: [phone] Referral ID Status Reason Start Date Expiration Date Visits V isits Requested Authorized [id number] Closed Service not 10/01/2019 09/30/2020 1 1 available in [facility] Encounter Details Date Type Department Care Team Description 10/01/2019 Orders Only Department of Family Zoë Nick Loc alization Related Medicine, [place] TIM, C.N.P. Focal Partial Clinic, in [place], [address] Symptomatic Epilepsy [place], [place] And Epileptic Syndromes [address] [address] With Simple Partial [place], [place] [phone] [place] [id number] (Work) Intractable Without [phone] Status Epilepti cus (Fax) ([facility]) (Primary Dx) Social History Tobacco Use Types Packs/Day Years [...] or relatives? How often do you attend christianity or Never 2019 taoist services? Do you belong to any clubs or No 01/29/2019 organizations such as christianity groups, unions, fraternal or athletic groups, or [...] as of this encounter Visit Diagnoses Diagnosis Localization Related Focal Partial Sympt omatic Epilepsy And Epileptic Syndromes With Simple Partial Seizures Not Intractable Without Status Epilepticus (HCC) - Primary documented in this encounter Additional Health Concerns Assessment Noted Time PHQ-9 Depression Total Score: 21 04/07/2019 8:00 PM CS T documented as of this encounter Care Teams Wearing Apparel Folder Relationship Specialty Start Date End Date Zoë Nick, TIM, C.N.P. PCP - General Family Medicine 11/19/17 11/29/[address] [address] documented as of this encounter
--- OUTSIDE RECORDS SUMMARY | 2022-02-02 11:01 | XMS_ITS | Encounter Summary ---
:1980 Author Organization [facility] Address [address] [place] [address] Care Team Providers Name Role Phone Zoë Nick APRN, C.NDallas Primary Care Provider [phone] Encounter Details Date Type Department Care Team Description 05/12/2019 Orders Only Department of Obstetrics and Collins, Jesus Cornell M.D. Gynecology in [place], [place] [address] [place] [address] Social History Tobacco Use Types Packs/Day Years [...] or relatives? How often do you attend mu-ism or Never 2019 temple services? Do you belong to any clubs or No 01/29/2019 organizations such as mu-ism groups, unions, fraternal or athletic groups, or [...] documented as of this encounter Care Teams Mold Injector Relationship Specialty Start Date End Date Zoë Nick, TIM, C.N.P. PCP - General Family Medicine 11/19/17 11/29/[address] [address] documented as of this encounter
--- OUTSIDE RECORDS SUMMARY | 2022-02-02 11:01 | XMS_ITS | Encounter Summary ---
:1980 Author Organization [facility] Address [address] [place] [address] Care Team Providers Name Role Phone Zoë Nick APRN, C.NSarahPSarah Primary Care Provider [phone] Reason for Visit Reason Comments Post-op Visit Outpatient (Routine) - Closed Specialty Diagnoses / Procedures Referred By Contact Refer red To Contact Obstetrics and Jesus Collins M.D. [facility] Gynecology [address] [place] [address] Referral ID Status Reason Start Date Expiration Date Visits Requ ested Visits Authorized [id number] Closed 05/07/2019 05/06/2020 1 1 Encounter Details Date Type Department Care Team Description 05/19/2019 Office Visit Department of Jesus Collins, Follow Up Ex amination Obstetrics and Melody Postoperative Visit Gynecology in (Primary Dx) [place], [place] [address] [place] [id number] Social History Tobacco Use Types Packs/Day Years [...] or relatives? How often do you attend jewish or Never 2019 restorationism services? 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 - 05/19/2019 2:30 PM CST POST OPERATIVE DESIGN TECHNICIAN VISIT REASON FOR VISIT / CHEIF COMPLAINT Postoperative exam. PROCEDURE Right Bartholin's gland excision procedure on 05/08/2019. HISTORY OF PRESENT ILLNESS Marlin Plummer is a 39 y.o. female who is status post right Bartholin's gland excision performed on 05/08/2019. She presents for postoperative visit today. She is doing well. She is requesting a prescription for pain medication stronger then ibuprofen but not as strong as oxycodone. Her pain has improved but she would like to try a different medication. She is voiding, ambulating, tolerating a regular diet and having bowel movements without difficulty. She denies vaginal bleeding or discharge. The swelling and cyst at the right Bartholin's area has resolved. She denies perineal edema and does not think she has perineal bruising. No fever or chills. Sheis amenorrheic with Mirena IUD. She denies dyspnea, chest pain, calf pain, fever or chills, headaches or vision changes. She has no mood concerns at this time. SUBJECTIVE Allergies Allergen Reactions ??? Eszopiclone Nausea And Vomiting ??? Latex Other (see comments) ??? Morphine GI intolerance ??? Naproxen Sodium Other (see comments) ??? Piroxicam Rash Current Outpatient Medications: ??? acamprosate (CAMPRAL) 333 mg EC tablet, , Disp: , Rfl: ??? acetaminophen (TYLENOL) 500 mg capsule, Take by mouth every 6 (six) hours as needed for pain., Disp: , Rfl: ??? cajjhrx-klmvcofdcmqro-gchcpbpi (EXCEDRIN MIGRAINE) 250-250-65 mg per tablet, Take 1 tablet by mouth every 6 (six) hours as needed for pain., Disp: , Rfl: ??? bismuth subsalicylate (PEPTO BISMOL) 262 mg/15 mL suspension, Take 30 mL by mouth every 6 (six) hours as needed for indigestion., Disp: , Rfl: ??? cetirizine (for_ZyrTEC) 10 mg tablet, Take 10 mg by mouth daily as needed., Disp: , Rfl: ??? clindamycin (for_CLEOCIN T) 1 % lotion, Apply 1 application topically 2 (two) times a day as needed. For hidradenitis suppurativa , Disp: , Rfl: ??? diphenhydrAMINE (BENADRYL) 50 mg capsule, Take 25 mg by mouth every 4 (four) hours., Disp: , Rfl: ??? divalproex (DEPAKOTE ER) 250 mg 24 hr tablet, , Disp: , Rfl: ??? docusate sodium (COLACE) 100 mg capsule, Take 100 mg by mouth daily., Disp: , Rfl: ??? fluconazole (DIFLUCAN) 150 mg tablet, TAKE ONE TABLET BY MOUTH EVERY 3RD DAY NEEDED, Disp: , Rfl: 0 ??? folic acid 1 mg tablet, Take 1 mg by mouth daily., Disp: , Rfl: ??? gabapentin (NEURONTIN) 300 mg capsule, Take 300 mg by mouth 3 (three) times a day., Disp: , Rfl: ??? gemfibrozil (LOPID) 600 mg tablet, Take 1 tablet (600 mg total) by mouth 2 (two) times a day., Disp: 180 tablet, Rfl: 3 ??? ibuprofen (ADVIL,MOTRIN) 200 mg capsule, Take 600 mg by mouth every 6 (six) hours as needed for pain., Disp: , Rfl: ??? lamoTRIgine (for_LaMICtal) 200 mg tablet, Take 200 mg by mouth 2 (two) times a day. , Disp: , Rfl: ??? levonorgestrel (MIRENA) 20 mcg/24 hr (5 years) IUD, 1 each by intrauterine route once. Place 06/01/2017 to be removed in 5 years, Disp: , Rfl: ??? lidocaine (LMX) 4 % cream, Apply 1 application topically 3 (three) times a day as needed for pain. For knee pain , Disp: , Rfl: ??? lithium carbonate 300 mg tablet, Take 300 mg by mouth 2 (two) times a day. 300 mg am and 1200 mgpm (prescribed by psych), Disp: , Rfl: ??? melatonin 3 mg tablet, Take 3 mg by mouth at bedtime., Disp: , Rfl: ??? multivitamin capsule, Take 1 capsule by mouth daily., Disp: , Rfl: ??? naltrexone (DEPADE) 50 mg tablet, Take 50 mg by mouth daily., Disp: , Rfl: ??? OLANZapine (ZyPREXA) 10 mg tablet, Take 10 mg by mouth daily., Disp: , Rfl: 1 ??? OLANZapine (ZyPREXA) 15 mg tablet, , Disp: , Rfl: ??? pantoprazole (PROTONIX) 40 mg EC tablet, Take 1 tablet (40 mg total) by mouth every morning before breakfast., Disp: 90 tablet, Rfl: 3 ??? propranolol (INDERAL) 10 mg tablet, Take 10 mg by mouth as needed. For anxiety , Disp: , Rfl: ??? rizatriptan (MAXALT) 10 mg tablet, Take 10 mg by mouth., Disp: , Rfl: ??? sennosides (senna) 8.6 mg tablet, Take 8.6 mg by mouth daily., Disp: , Rfl: ??? thiamine (vitamin B-1) 100 mg tablet, Take 100 mg by mouth daily., Disp: , Rfl: ??? traMADoL (ULTRAM) 50 mg tablet, Take 1 tablet (50 mg total) by mouth every 6 (six) hours as needed for pain for up to 5 days Indications: Chronic Pain/Nonacute Pain., Disp: 20 tablet, Rfl: 0 REVIEW OF SYSTEMS As per the HPI, otherwise negative. Past Medical History: Diagnosis Date ??? Abuse Tobacco Smoking ??? Allergy Seasonal ??? Arthritis Rheumatoid (HCC) ??? Bipolar I Disorder (HCC) ??? Disturbance Sleep 12/18/2017 ??? Fibromyalgia ??? Hidradenitis Suppurativa ??? Hypertriglyceridemia 04/28/2019 ??? Migraine Headache ??? Moderate Or Severe Use Disorder (Dependence) Alcohol Remission (HCC) 01/29/2019 ??? Persistent Depressive Disorder ??? Posttraumatic Stress Disorder Prolonged ??? Raynaud's Disease ??? Reflux Esophageal Past Surgical History: Procedure Laterality Date ??? ARTHRODESIS OF ANKLE N/A 2001 Ankle fusion ??? BARTHOLIN GLAND CYST EXCISION Right 05/08/2019 ??? DILATION AND CURETTAGE ??? REPAIR OF UMBILICAL HERNIA N/A Repair of umbilical hernia OB History Para Term AB Living 4 3 2 1 1 3 SAB TAB Ectopic Molar Multiple Live Births 1 0 0 0 0 3 # Outcome Date GA Lbr Kevin/2nd Weight Sex Delivery Anes PTL Lv 4 10/20/08 36w5d 3.118 kg F Vag-Spont JONATHAN 3 SAB 12/15/06 10w0d SAB SA Comments: D&C 2 Term 07/18/04 37w0d 2.381 kg M Vag-Spont JONATHAN 1 Term 10/28/01 38w0d 3.289 kg F Vag-Spont JONATHAN Social History Socioeconomic History ??? Marital status: Spouse name: Not on file ??? Number of children: Not on file ??? Years of education: Not on file ??? Highest education level: Not on file Occupational History Employer: [employer] Social Needs ??? Financial resource strain: Not on file ??? Food insecurity Worry: Never true Inability: Not on file ??? Transportation needs Medical: No Non-medical: Not on file Tobacco Use ??? Smoking status: Current Every Day Smoker Packs/day: 1.00 Types: Cigarettes ??? Smokeless tobacco: Never Used Substance and Sexual Activity ??? Alcohol use: Not Currently Frequency: Never ??? Drug use: No ??? Sexual activity: Yes Partners: Male control/protection: Vasectomy Lifestyle ??? Physical activity Days per week: 3 days Minutes per session: Not on file ??? Stress: Not on file Relationships ??? Social connections Talks on phone: More than three times a week Gets together: Not on file Attends restorationism service: Not on file Active member of club or organization: No Attends meetings of clubs or organizations: Not on file Relationship status: Not on file ??? Intimate partner violence Fear of current or ex partner: No Emotionally abused: No Physically abused: No Forced sexual activity: No Other Topics Concern ??? Not on file Social History Narrative ??? Not on file OBJECTIVE BP 110/68 Pulse 80 Temp 36.5 ??C Resp 16 Wt 84.9 kg BMI 30.21 kg/m?? General: Well-developed, well-nourished female in no acute distress. Neurological: Alert and oriented x3. Lungs: Clear to auscultation bilaterally with good inspiratory effort. No wheezing rhonchi or rales noted. Breathing nonlabored. Heart: Regular rate and rhythm without murmur. No JVD. No peripheral vascular disease. Abdomen: Soft, nontender, nondistended, positive bowel sounds. No organomegaly. No rebound, no guarding. No hernia. Pelvic exam: Normal external female genitalia. The right labia is normal size and nontender. No erythema or induration. The incision over the right Bartholin's gland is intact and healing well without erythema, induration, or drainage. Normal pubic hair distribution. Urethral meatus is normal in appear ance without masses. Normal vaginal mucosa without lesion. Bimanual exam deferred. Extremities: No clubbing, cyanosis or edema. Nontender bilaterally. [employer] Soa Developer for pelvic exam or qualifying procedure: Laury Mercedes L.PSarahNSarah DIAGNOSTICS 05/08/2019 Pathology: Bartholin's gland cyst excision: Benign epidermal inclusion cyst, negative forneoplasia 05/07/2019 Pap smear: Negative for intraepithelial lesion or malignancy, HPV DNA negative. 05/07/2019 Chlamydia: Negative, Gonorrhea: Negative ASSESSMENT / PLAN Marlin Plummer is a 39 y.o. female who is status post right Bartholin's gland excision performed on 05/08/2019. 1 Normal postoperative exam - The patient is making excellent postoperative progress. She is voiding, ambulating, tolerating a regular diet and having bowel movements without difficulty. - I gave the patient prescription for tramadol. I discussed use of this medication with the patient. - The patient has finished her antibiotic course. - Routine postoperative precautions, recommendations and restrictions are reviewed with the patient. - I discussed normal Pap smear results with the patient. - The pathology results are reviewed the patient. - I recommend the patient continue to use warm soaks and bath as needed over the next several days. - The patient may resume all normal baseline physical activities without restrictions. - I recommend that the patient refrain from intercourse for 4 weeks after the surgery to allow proper healing. - Bleeding precautions are reviewed the patient. - I recommend that the patient follow up with her primary provider for adult preventive services andannual examination as needed. - All of the patient's questions were answered. - I will be happy to see the patient on an as needed basis. - Problem list reviewed and updated. - Follow up annually and as needed. - 20 minute visit with greater than 50% spent in counseling. Jesus Collins MD [employer] - Obstetrics and Gynecology [facility] T STRIPING MACHINE OPERATOR documented in this encounter Plan of Treatment Not on filedocumented as of this encounter Visit Diagnoses Diagnosis Follow Up Examination Postoperative Visi t - Primary documented in this encounter Additional Health Concerns Assessment Noted Time PHQ-9 Depression Total Score: 21 04/07/2019 8:00 PM CS T documented as of this encounter Care Teams Eligibility Supervisor Relationship Specialty Start Date End Date Zoë Nick, TIM, C.N.P. PCP - General Family Medicine 11/19/17 11/29/[address] [address] documented as of this encounter
--- OUTSIDE RECORDS SUMMARY | 2022-02-02 11:01 | XMS_ITS | Encounter Summary ---
:1980 Author Organization [facility] Address [address] [place] [address] Care Team Providers Name Role Phone Zoë Nick APRN, C.NDallas Primary Care Provider [phone] Encounter Details Date Type Department Care Team Description 08/22/2019 Hospital Encounter Department of Hoda Horton Other Marine Engineering Teacher Current Drug Therapy; Laboratory Medicine K, BRANCH CREDIT COUNSELOR Bipolar II Disorder (HCC) in [address] [place] [phone] Social History Tobacco Use Types Packs/Day Years [...] you attend oriental orthodox or Never 2019 latter-day services? Do you belong to any clubs [...] 0 04/11/2019 mg EC tablet acetaminophen (TYLENOL) 500 Take by mouth 0 mg capsule every 6 (six) hours as needed for pain. bmkbilm-azwrxnynvnuek-lvqby Take 1 tablet by 0 ine (EXCEDRIN MIGRAINE) mouth every 6 250-250-65 mg per tablet (six) hours as needed for pain. bismuth subsalicylate Take 30 mL by 0 (PEPTO BISMOL) 262 mg/15 mL mouth every 6 suspension (six) hours as needed for indigestion. cetirizine (for_ZyrTEC) 10 Take 10 mg by 0 2015 mg tablet mouth daily as needed. clindamycin (for_CLEOCIN T) Apply 1 0 12/19/19 17 1 % lotion application topically 2 (two) times a day as needed. For hidradenitis suppurativa docusate sodium (COLACE) Take 100 mg by 0 100 mg capsule mouth 2 (two) times a day as needed. gabapentin (NEURONTIN) 300 Take 300 mg by 0 mg capsule mouth 3 (three) times a day. hydrOXYzine (ATARAX) 25 mg 0 0 tablet levonorgestrel (MIRENA) 20 1 each by 0 mcg/24 hr (5 years) IUD intrauterine route once. Place 06/01/2017 to be removed in 5 years lidocaine (LMX) 4 % cream Apply 1 0 application topically 4 (four) times a day as needed for pain. For knee pain melatonin 3 mg tablet Take 3 mg by mouth 0 at bedtime. multivitamin capsule Take 1 capsule by 0 mouth daily. diphenhydrAMINE (BENADRYL) Take 25 mg by 0 09/01/2019 50 mg capsule mouth every 4 (four) hours. divalproex (DEPAKOTE ER) 0 05/05/2019 02/17/2020 250 mg 24 hr tablet fluconazole (DIFLUCAN) 150 TAKE ONE TABLET BY 0 1 04/03/2018 09/01/2019 mg tablet MOUTH EVERY 3RD DAY NEEDED folic acid 1 mg tablet Take 1 mg by mouth 0 09/01/2019 daily. gemfibrozil (LOPID) 600 mg Take 1 tablet (600 180 tablet 3 0 04/28/2019 05/04/2020 tabletIndications: mg total) by mouth Hypertriglyceridemia 2 (two) times a day. ibuprofen (ADVIL,MOTRIN) Take 600 mg by 0 02/17/2020 200 mg capsule mouth every 6 (six) hours as needed for pain. lamoTRIgine (for_LaMICtal) Take 200 mg by 0 09/01/2019 200 mg tablet mouth 2 (two) times a day. lithium carbonate 300 mg Take 300 mg by 0 02/17/2020 tablet mouth 2 (two) times a day. 300 mg am and 1200 mg pm (prescribed by psych) naltrexone (DEPADE) 50 mg Take 50 mg by 0 02/17/2020 tablet mouth daily. OLANZapine (ZyPREXA) 10 mg Take 10 mg by 1 201809/01/2019 tablet mouth daily. OLANZapine (ZyPREXA) 15 mg 0 0 02/17/2020 tablet oxyCODONE (ROXICODONE) 5 mg Take 5-10 mg by 0 09/201909/01/2019 immediate release tablet mouth. pantoprazole (PROTONIX) 40 Take 1 tablet (40 90 tablet 3 09/01/2019 mg EC tabletIndications: mg total) by mouth Reflux Esophageal every morning before breakfast. propranolol (INDERAL) 10 mg Take 10 mg by 0 02/17/2020 tablet mouth as needed. For anxiety QUEtiapine (SEROquel) 50 mg 0 08/06/19 20 09/01/2019 tablet rizatriptan (MAXALT) 10 mg Take 10 mg by 0 201309/01/2019 tablet mouth. sennosides (senna) 8.6 mg Take 8.6 mg by 0 09/01/2019 tablet mouth daily. thiamine (vitamin B-1) 100 Take 100 mg by 0 09/01/2019 mg tablet mouth daily. documented as of this encounter Plan of Treatment Not on filedocumented as of this encounter Procedures Procedure Name Priority Date/Time Associated Diagnosis Comme nts LIPID PANEL, S Routine 08/22/2019 11:46 AM Other Marine Engineering Teacher Res ults for this CDT Current Drug The rapy procedure are in Bipolar II Disorder the resu lts (HCC) section. HEPATIC FUNCTION Routine 08/22/2019 11:46 AM Other Skilled Nursing R esults for this PANEL, S CDT Current Drug The rapy procedure are in Bipolar II Disorder the resu lts (HCC) section. CBC WITH Routine 08/22/2019 11:46 AM Other Skilled Nursing Resul ts for this DIFFERENTIAL, B CDT Current Drug The rapy procedure are in Bipolar II Disorder the resu lts (HCC) section. BUN (BLOOD UREA Routine 08/22/2019 11:46 AM Other Marine Engineering Teacher Re sults for this NITROGEN), S/P CDT Current Drug The rapy procedure are in Bipolar II Disorder the resu lts (HCC) section. THYROID-STIMULATING Routine 08/22/2019 11:[address] Results for this HORMONE-SENSITIVE CDT Current Drug T herapy procedure are in (S-TSH) Bipolar II Disorder the resu lts (HCC) section. GLUCOSE, FASTING, Routine 08/22/2019 11:46 AM Other Skilled Nursing Results for this S/P CDT Current Drug The rapy procedure are in Bipolar II Disorder the resu lts (HCC) section. LITHIUM LEVEL, S Routine 08/22/2019 11:46 AM Other Skilled Nursing R esults for this CDT Current Drug The rapy procedure are in Bipolar II Disorder the resu lts (HCC) section. VALPROIC ACID Routine 08/22/2019 11:46 AM Other Marine Engineering Teacher Resu lts for this LEVEL, TOT, S CDT Current Drug The rapy procedure are in Bipolar II Disorder the resu lts (HCC) section. documented in this encounter Results (ABNORMAL) Valproic Acid, Total (08/22/2019 11:46 AM CDT) P athologist Signature Valproic Acid, 15 (L) 50 - 125 08/22/2019 SUHAIL Tot, S mcg/mL 6:02 PM CDT Specimen Anatomical Collection Method Collection Time Receive d Time (Source) Location / / Volume Laterality Blood (Blood, 08/22/2019 11:46 08/22/2019 4:37 Venous) AM CDT PM CDT Hoda Horton BRANCH CREDIT COUNSELOR LAB BLOOD ADD-ON Performing Organization Address City/State/ZIP Code Phon e Number [facility] [place] [address] [facility] [address] [place] [facility]- [facility] [place] [address] [place] [facility] [place] [address] [place] Level (08/22/2019 11:46 AM CDT) athologist Signature Davis, S 1.1 0.5 - 1.2 08/22/2019 [place] mmol/L 5:30 PM CDT Specimen Anatomical Collection Method Collection Time Receive d Time (Source) Location / / Volume Laterality Blood (Blood, 08/22/2019 11:46 08/22/2019 4:02 Venous) AM CDT PM CDT Hoda Horton BRANCH CREDIT COUNSELOR LAB BLOOD ADD-ON Performing Organization Address City/State/ZIP Code Phon e Number [facility]- [address] [place] [address] [facility] [place] [address] [facility] [address] Glucose, Fasting (08/22/2019 11:46 AM CDT) athologist Signature Glucose, P 88 70 - 100 08/22/2019 [place] mg/dL 12:57 PM CDT Last Intake 16 hr 08/22/2019 [place] 12:05 PM CDT Specimen Anatomical Collection Method Collection Time Receive d Time (Source) Location / / Volume Laterality Blood (Blood, 08/22/2019 11:46 08/22/2019 Venous) AM CDT 12:05 PM CDT Hoda Horton BRANCH CREDIT COUNSELOR LAB BLOOD NON ADD-ON Performing Organization Address City/State/ZIP Code Phon e Number [facility]- [address] [place] [address] [facility] [place] [address] System in [place] [address] BUN (Blood Urea Nitrogen) (08/22/2019 11:46 AM CDT) athologist Signature BUN (Blood Urea 6 6 - 21 08/22/2019 [place] Nitrogen), P mg/dL 1:03 PM CDT Specimen Anatomical Collection Method Collection Time Receive d Time (Source) Location / / Volume Laterality Blood (Blood, 08/22/2019 11:46 08/22/2019 Venous) AM CDT 12:05 PM CDT Hoda K Ludinwillian BRANCH CREDIT COUNSELOR LAB BLOOD ADD-ON Performing Organization Address City/[facility]/ZIP Code Phon e Number [facility]- [address] [place] [address] [place] [address] System in [place] [address] [facility] S-TSH (Thyroid-Stimulating Hormone - Sensitive) (08/22/2019 11:46 AM CDT) P athologist Signature TSH, Sensitive 2.2 0.3 - 4.2 08/22/2019 [place] mIU/L 1:06 PM CDT Comment: Biotin has been identified by the prema mcguire as a potential interfering substance. ??Higher concentr ations of biotin may be found in multivitamins, hair/nail supple ments, and workout supplements. ??If the result does not [facility] clinical observations, repeat testing after patient refrains fr om the use of supplements for at least 12 hours. Specimen Anatomical Collection Method Collection Time Receive d Time (Source) Location / / Volume Laterality Blood (Blood, 08/22/2019 11:46 08/22/2019 Venous) AM CDT 12:05 PM CDT Hoda Horton BRANCH CREDIT COUNSELOR LAB BLOOD ADD-ON Performing Organization Address City/[facility]/ZIP Code Phon e Number [facility]- [address] [place] [address] [place] [address] System in [place] [address] [facility] (ABNORMAL) Lipid Panel (08/22/2019 11:46 AM CDT) P athologist Signature Cholesterol, 152 mg/dL 08/22/2019 [place] Total 1:03 PM CDT Comment: ----REFERENCE VALUE---- Desirable: < 200 Borderline high: 200 - 239 High: > or = 240 Triglycerides 127 mg/dL 08/22/2019 1:03 PM CDT [place] T Comment: ----REFERENCE VALUE---- Normal: <150 Borderline high: 150-199 High: 200-499 Very high: > or =500 Cholesterol, HDL 40 (L) >=50 mg/dL 08/22/2019 1:03 PM CDT [place] Calculated LDL 87 mg/dL 08/22/2019 1:03 PM CDT [place] Comment: ----REFERENCE VALUE---- Desirable: <100 Above Desirable: 100-129 Borderline high: 130-159 High: 160-189 Very high: > or =190 Cholesterol, Non-HDL, Calculated 112 mg/dL 020 1:03 PM CDT [place] Comment: ----REFERENCE VALUE---- Desirable: <130 Above Desirable: 130-159 Borderline high: 160-189 High: 190-219 Very high: > or =220 Specimen Anatomical Collection Method Collection Time Receive d Time (Source) Location / / Volume Laterality Blood (Blood, 08/22/2019 11:46 08/22/2019 Venous) AM CDT 12:05 PM CDT Hoda Horton BRANCH CREDIT COUNSELOR LAB BLOOD ADD-ON Performing Organization Address City/State/ZIP Code Phon e Number [facility]- [address] [place] [address] [place] [address] System in [place] [address] [facility] Hepatic Function Panel (08/22/2019 11:46 AM CDT) Patholo gist Method Time Signature Bilirubin, Total, P 0.3 <=1.2 08/22/2019 [place] mg/dL 1:03 PM CDT Bilirubin, Direct, P <0.2 0.0 - 0.3 08/22/2019 [place] mg/dL 1:31 PM CDT Aspartate 15 8 - 43 08/22/2019 [place] Aminotransferase U/L 1:03 PM CDT (AST), P Alanine 14 7 - 45 08/22/2019 [place] Aminotransferase U/L 1:03 PM CDT (ALT), P Alkaline 88 35 - 104 08/22/2019 [place] Phosphatase, P U/L 1:03 PM CDT Albumin, P 4.7 3.5 - 5.0 08/22/2019 [place] g/dL 1:03 PM CDT Protein, Total, P 7.1 6.3 - 7.9 08/22/2019 [place] g/dL 1:03 PM CDT Specimen Anatomical Collection Method Collection Time Receive d Time (Source) Location / / Volume Laterality Blood (Blood, 08/22/2019 11:46 08/22/2019 Venous) AM CDT 12:05 PM CDT Hoda Horton BRANCH CREDIT COUNSELOR LAB BLOOD ADD-ON Performing Organization Address City/State/ZIP Code Phon e Number [facility]- [address] [place] [address] [facility] [place] [address] System in [place] [address] (ABNORMAL) CBC with Differential, Blood (08/22/2019 11:46 AM CDT) [facility] Method Time Signature Hemoglobin 13.7 11.6 - 08/22/2019 [place] 15.0 g/dL 12:10 PM CDT Hematocrit 41.4 35.5 - 08/22/2019 [place] 44.9 % 12:10 PM CDT Erythrocytes 4.30 3.92 - 08/22/2019 [place] 5.13 12:10 PM CDT x10(12)/L MCV 96.3 78.2 - 08/22/2019 [place] 97.9 fL 12:10 PM CDT RBC Distrib Width 13.1 12.2 - 08/22/2019 [place] 16.1 % 12:10 PM CDT Platelet Count 389 (H) 157 - 371 08/22/2019 [place] x10(9)/L 12:10 PM CDT Leukocytes 11.4 (H) 3.4 - 9.6 08/22/2019 [place] x10(9)/L 12:10 PM CDT Neutrophils 7.98 (H) 1.56 - 08/22/2019 [place] 6.45 12:10 PM CDT x10(9)/L Lymphocytes 1.89 0.95 - 08/22/2019 [place] 3.07 12:10 PM CDT x10(9)/L Monocytes 0.52 0.26 - 08/22/2019 [place] 0.81 12:10 PM CDT x10(9)/L Eosinophils 1.02 (H) 0.03 - 08/22/2019 [place] 0.48 12:10 PM CDT x10(9)/L Basophils 0.03 0.01 - 08/22/2019 [place] 0.08 12:10 PM CDT x10(9)/L Specimen Anatomical Collection Method Collection Time Receive d Time (Source) Location / / Volume Laterality Blood (Blood, 08/22/2019 11:46 08/22/2019 Venous) AM CDT 12:05 PM CDT Hoda Akhtar Ludinwillian BRANCH CREDIT COUNSELOR LAB BLOOD ADD-ON Performing Organization Address City/State/ZIP Code Phon e Number [facility]- [address] [place] [address] [place] [address] System in [place] [address] [facility] documented in this encounter Visit Diagnoses Diagnosis Other Marine Engineering Teacher Current Drug Therapy Bipolar II Disorder (HCC) documented in this encounter Additional Health Concerns Assessment Noted Time PHQ-9 Depression Total Score: 21 04/07/2019 8:00 PM CS T documented as of this encounter Care Teams District Plant Supervisor Relationship Specialty Start Date End Date Zoë Nick, REAL ESTATE INTERN, C.N.P. PCP - General Family Medicine 11/19/17 11/29/[address] [place] [phone] documented as of this encounter
--- OUTSIDE RECORDS SUMMARY | 2022-02-02 11:01 | XMS_ITS | Encounter Summary ---
:1980 Author Organization [facility] Address [address] [place] [address] Care Team Providers Name Role Phone Zoë Nick APRN, C.N.P. Primary Care Provider [phone] Encounter Details Date Type Department Care Team Description 08/29/2019 Clinical Communication Department of Bibi Ocampo, Medicine, [place] TIM, C.N.P. Clinic, in [facility] [address] [place], [place] [address] [facility] [address] [place], [place] [phone] [address] (Work) [phone] Social History Tobacco Use Types Packs/Day Years [...] or relatives? How often do you attend jain or Never 2019 denominational services? Do you belong to any clubs or No 01/29/2019 organizations such as jain groups, unions, fraternal or athletic groups, or [...] this encounter Miscellaneous Notes Telephone Encounter - Hina Raygoza C.M.A. - 08/29/2019 3:47 PM CDT SUBJECTIVE CHIEF COMPLAINT / REASON FOR CALL No chief complaint on file. PLAN The following information was provided: Spoke with patient about what TLR said. No further questions or concerns at this time. Information/Education: not applicable The following references were used: provider Josh Hodgson Telephone Encounter - Hina Raygoza C.M.A. - 08/29/2019 3:37 PM CDT Left message and sent portal message with information below per TLR. Telephone Encounter - Josh Vaz P.A.-C. - 08/29/2019 3:29 PM CDT Her lab results do not show any acute abnormalities. I am not sure who ordered them. I am hopeful that the ordering provider will follow-up with her with further recommendations it sounds like it may have been outside institutions so I would like to make sure that they got the results Telephone Encounter - Hina Raygoza C.M.A. - 08/29/2019 2:15 PM CDT Wanting lab results. Telephone Encounter - Raisa Chambers - 08/29/2019 1:31 PM CDT Patient called regarding lab results concerns. Please call patient back. documented in this encounter Plan of Treatment Not on filedocumented as of this encounter Visit Diagnoses Not on filedocumented in this encounter Additional Health Concerns Assessment Noted Time PHQ-9 Depression Total Score: 21 04/07/2019 8:00 PM CS T documented as of this encounter Care Teams Motel Keeper Relationship Specialty Start Date End Date Zoë Nick, ASSEMBLER BILLIARD TABLE, C.N.P. PCP - General Family Medicine 11/19/17 11/29/[address] [phone] documented as of this encounter
--- OUTSIDE RECORDS SUMMARY | 2022-02-02 11:01 | XMS_ITS | Encounter Summary ---
:1980 Author Organization [facility] Address [address] [place] [address] Care Team Providers Name Role Phone Zoë Nick APRN, C.N.P. Primary Care Provider [phone] Reason for Visit Reason Comments Med Refill Encounter Details Date Type Department Care Team Description 09/01/2019 Refill Department of Family Medicine, Bibi Nick APRN, Med Refill [facility], [place] [address] [place] [address] [place] [address] [phone] Social History Tobacco Use Types Packs/Day Years [...] or relatives? How often do you attend sikh or Never 2019 bahai services? Do you belong to any clubs or No 01/29/2019 organizations such as sikh groups, unions, fraternal or athletic groups, or [...] documented as of this encounter Care Teams Griddle Attendant Relationship Specialty Start Date End Date Zoë Nick, TIM, C.N.P. PCP - General Family Medicine 11/19/17 11/29/[address] [address] documented as of this encounter
--- OUTSIDE RECORDS SUMMARY | 2022-02-02 11:01 | XMS_ITS | Encounter Summary ---
:1980 Author Organization [facility] Address [address] [place] [address] Care Team Providers Name Role Phone Zoë Nick APRN, C.NDallas Primary Care Provider [phone] Encounter Details Date Type Department Care Team Description 05/23/2019 Hospital Encounter Department of Hoda Horton Other Assisted Current Drug Therapy; Laboratory Medicine K, MOTOR EQUIPMENT COMMANDING OFFICER Bipolar Disorder Current Episode Depress ed Severe Without Psychotic Features (HCC); in [address] Bipolar I De pressed Severe Without Psychosis (HCC); [place] [address] Medication Therapy Electrical Logger Not Anticoa gulant [address] [place], [place] [facility] [place] [place] [phone] Social History Tobacco Use Types Packs/Day Years [...] or relatives? How often do you attend nondenominational or Never 2019 buddhist services? Do you belong to any clubs or No 01/29/2019 organizations such as nondenominational groups, unions, fraternal or athletic groups, or [...] 6 (six) hours as needed for pain. hscbsex-ozbgzvbvyvhvw-nvfhb Take 1 tablet by 0 ine (EXCEDRIN [...] capsule mouth 3 (three) times a day. levonorgestrel (MIRENA) 20 1 each by 0 [...] Take 1 capsule by 0 mouth daily. traMADoL (ULTRAM) 50 mg Take 1 tablet (50 20 tablet 0 05/1905/24/2019 tabletIndications: Chronic mg total) by mouth Pain/Nonacute Pain every 6 (six) hours as needed for pain for up to 5 days Indications: Chronic Pain/Nonacute Pain. diphenhydrAMINE (BENADRYL) Take 25 mg by 0 [...] 02/17/2020 tablet mouth as needed. For anxiety rizatriptan (MAXALT) 10 mg Take 10 mg by 0 201309/01/2019 tablet mouth. sennosides (senna) 8.6 mg Take 8.6 mg by 0 09/01/2019 tablet mouth daily. thiamine (vitamin B-1) 100 Take 100 mg by 0 09/01/2019 mg tablet mouth daily. documented as of this encounter Plan of Treatment Not on filedocumented as of this encounter Procedures Procedure Name Priority Date/Time Associated Diagnosis Comme nts HEPATIC FUNCTION Routine 05/23/2019 9:09 AM Bipolar I Depresse d Results for this PANEL, S MANAGING PRINCIPAL Severe Without procedure are in Psychosis (HCC) the results Medication Therapy section. Electrical Logger Not Anticoagulant CBC WITHOUT Routine 05/23/2019 9:09 AM Bipolar I Depressed Re sults for this DIFFERENTIAL, B MANAGING PRINCIPAL Severe Without procedure are in Psychosis (HCC) the results Medication Therapy section. Assisted Not Anticoagulant THYROID-STIMULATIN Routine 05/23/2019 9:09 AM Bipolar I Depres sed Results for this G MANAGING PRINCIPAL Severe Without procedure are in HORMONE-SENSITIVE Psychosis (HCC ) the results (S-TSH) Medication Therapy section. Assisted Not Anticoagulant LITHIUM LEVEL, S Routine 05/23/2019 9:09 AM Other Electrical Logger Re sults for this MANAGING PRINCIPAL Current Drug The rapy procedure are in Bipolar Disorder the results Current Episode section. Depressed Severe Without Psychotic Features (HCC) VALPROIC ACID Routine 05/23/2019 9:09 AM Bipolar I Depressed R esults for this LEVEL, TOT, S MANAGING PRINCIPAL Severe Without procedure ar e in Psychosis (HCC) the results Medication Therapy section. Electrical Logger Not Anticoagulant documented in this encounter Results (ABNORMAL) Valproic Acid, Total (05/23/2019 9:09 AM MANAGING PRINCIPAL) athologist Signature Valproic Acid, 11 (L) 50 - 125 05/23/2019 SUHAIL Tot, S mcg/mL 7:03 PM MANAGING PRINCIPAL Specimen Anatomical Collection Method Collection Time Receive d Time (Source) Location / / Volume Laterality Blood (Blood, 05/23/2019 9:09 AM 05/23/19 20 6:12 Venous) MANAGING PRINCIPAL PM MANAGING PRINCIPAL Hoda Horton MOTOR EQUIPMENT COMMANDING OFFICER LAB BLOOD ADD-ON Performing Organization Address City/State/ZIP Code Phon e Number [facility] [place] [phone] [facility] [place] [address] [facility] [place] [address] [address] [facility] [place] [address] S-TSH (Thyroid-Stimulating Hormone - Sensitive) (05/23/2019 9:09 AM MANAGING PRINCIPAL) athologist Signature TSH, Sensitive 2.1 0.3 - 4.2 05/23/2019 [place] mIU/L 10:53 AM MANAGING PRINCIPAL Comment: Biotin has been identified by the prema mcguire as a potential interfering substance. ??Higher concentr ations of biotin may be found in multivitamins, hair/nail supple ments, and workout supplements. ??If the result does not ma [facility] clinical observations, repeat testing after patient refrains fr om the use of supplements for at least 12 hours. Specimen Anatomical Collection Method Collection Time Receive d Time (Source) Location / / Volume Laterality Blood (Blood, 05/23/2019 9:09 AM 05/23/19 Venous) MANAGING PRINCIPAL 10:25 AM MANAGING PRINCIPAL Hoda Horton MOTOR EQUIPMENT COMMANDING OFFICER LAB BLOOD ADD-ON Performing Organization Address City/State/ZIP Code Phon e Number [facility] [address] [place] [address] [facility] [place] [address] System in [place] [address] [facility] Hepatic Function Panel (05/23/2019 9:09 AM MANAGING PRINCIPAL) [facility] gist Method Time Signature Bilirubin, Total, P 0.7 <=1.2 05/23/2019 [place] mg/dL 11:01 AM MANAGING PRINCIPAL Bilirubin, Direct, P <0.2 0.0 - 0.3 05/23/2019 [place] mg/dL 12:21 PM MANAGING PRINCIPAL Aspartate 27 8 - 43 05/23/2019 [place] Aminotransferase U/L 11:01 AM MANAGING PRINCIPAL (AST), P Alanine 20 7 - 45 05/23/2019 [place] Aminotransferase U/L 11:01 AM MANAGING PRINCIPAL (ALT), P Alkaline 87 35 - 104 05/23/2019 [place] Phosphatase, P U/L 11:01 AM MANAGING PRINCIPAL Albumin, P 4.9 3.5 - 5.0 05/23/2019 [place] g/dL 11:01 AM MANAGING PRINCIPAL Protein, Total, P 7.4 6.3 - 7.9 05/23/2019 OWAT g/dL 11:01 AM MANAGING PRINCIPAL Specimen Anatomical Collection Method Collection Time Receive d Time (Source) Location / / Volume Laterality Blood (Blood, 05/23/2019 9:09 AM 05/23/19 Venous) MANAGING PRINCIPAL 10:25 AM MANAGING PRINCIPAL Hoda Horton MOTOR EQUIPMENT COMMANDING OFFICER LAB BLOOD ADD-ON Performing Organization Address City/State/ZIP Code Phon e Number [facility] [address] [place] [address] [facility] [place] [address] System in [place] [address] (ABNORMAL) CBC without Differential (05/23/2019 9:09 AM MANAGING PRINCIPAL) Patholo gist Method Time Signature Hemoglobin 12.9 11.6 - 05/23/2019 FB60 15.0 g/dL 9:29 AM MANAGING PRINCIPAL Hematocrit 40.7 35.5 - 05/23/2019 FB60 44.9 % 9:29 AM MANAGING PRINCIPAL Erythrocytes 4.22 3.92 - 05/23/2019 FB60 5.13 9:29 AM MANAGING PRINCIPAL x10(12)/L MCV 96.4 78.2 - 05/23/2019 FB60 97.9 fL 9:29 AM MANAGING PRINCIPAL RBC Distrib Width 13.0 12.2 - 05/23/2019 FB60 16.1 % 9:29 AM MANAGING PRINCIPAL Platelet Count 503 (H) 157 - 371 05/23/2019 FB60 x10(9)/L 9:29 AM MANAGING PRINCIPAL Leukocytes 14.6 (H) 3.4 - 9.6 05/23/2019 FB60 x10(9)/L 9:29 AM MANAGING PRINCIPAL Specimen Anatomical Collection Method Collection Time Receive d Time (Source) Location / / Volume Laterality Blood (Blood, 05/23/2019 9:09 AM 05/23/19 9:09 Venous) MANAGING PRINCIPAL AM MANAGING PRINCIPAL Hoda Horton MOTOR EQUIPMENT COMMANDING OFFICER LAB BLOOD ADD-ON Performing Organization Address City/State/ZIP Code Phon e Number [facility]- [address] [place] [address] [facility] [address] [place] [address] System in [place] [address] [place] Level (05/23/2019 9:09 AM MANAGING PRINCIPAL) P athologist Signature [place], S 1.2 0.5 - 1.2 05/23/2019 AUST mmol/L 4:39 PM MANAGING PRINCIPAL Specimen Anatomical Collection Method Collection Time Receive d Time (Source) Location / / Volume Laterality Blood (Blood, 05/23/2019 9:09 AM 05/23/19 3:37 Venous) MANAGING PRINCIPAL PM MANAGING PRINCIPAL Hoda Horton MOTOR EQUIPMENT COMMANDING OFFICER LAB BLOOD ADD-ON Performing Organization Address City/State/ZIP Code Phon e Number [facility] [address] [place] [address] [facility] [place] [address] [facility] [address] documented in this encounter Visit Diagnoses Diagnosis Other Assisted Current Drug Therapy Bipolar Disorder Current Episode Depress ed Severe Without Psychotic Features (HCC) Bipolar I Depressed Severe Without Psych osis (HCC) Medication Therapy Assisted Not Anticoa gulant documented in this encounter Additional Health Concerns Assessment Noted Time PHQ-9 Depression Total Score: 21 04/07/2019 8:00 PM CS T documented as of this encounter Care Teams Department Clinician Relationship Specialty Start Date End Date Zoë Nick, TIM, C.N.P. PCP - General Family Medicine 11/19/17 11/29/20 [address] [place] [address] documented as of this encounter
--- OUTSIDE RECORDS SUMMARY | 2022-02-02 11:01 | XMS_ITS | Encounter Summary ---
:1980 Author Organization [facility] Address [address] [place] [address] Care Team Providers Name Role Phone Zoë Nick APRN, C.N.P. Primary Care Provider [phone] Reason for Visit Reason Comments Vaginitis/Bacterial Vaginosis Encounter Details Date Type Department Care Team Description 09/02/2019 Clinical Communication Department of Larisa Kaye nitian/Bacterial Obstetrics and Yi Dominguez Vaginosis Gynecology in TIM C.N.PSarah Wood, [address] [place], [place] [address] [place] [address] [place], [place] [phone] [address] (Work) [phone] Social History Tobacco Use Types Packs/Day Years [...] or relatives? How often do you attend rastafari or Never 2019 mandaen services? Do you belong to any clubs or No 01/29/2019 organizations such as rastafari groups, unions, fraternal or athletic groups, or [...] Telephone Encounter - Raisa Root R.N. - 09/03/2019 9:34 AM CDT Information Discussed Yi Kaye recommendations PLAN Disposition/Recommendation: recommended continue engagement in self-management activities Information/Education: patient/caller able to teach back Caller agreeable to plan of care: yes The following references were used: provider Yi Kaye Telephone Encounter - Raisa Root R.N. - 09/03/2019 9:13 AM CDT Left message to call back Telephone Encounter - Jessica Morales R.N. - 09/02/2019 1:50 PM CDT CHIEF COMPLAINT / REASON FOR CALL Vaginitis/Bacterial Vaginosis ASSESSMENT Last seen 12/26/18, has a history of recurrent BV. She is calling now stating she has the same symptoms of green discharge with an odor. She has used Metrogel in the past as it has worked. She cannot take oral Flagyl due to GI intolerance. Can you send in refill without her being seen? PLAN Message sent to Yi nelson advise. Disposition/Recommendation: notified provider and awaiting recommendations. Information/Education: patient/caller able to teach back. Caller agreeable to plan of care: yes. The following references were used: none. Telephone Encounter - Loraine Sumner - 09/02/2019 12:28 PM CDT Reason for Communication: Patient is calling in stating that she noticed the start of a bacterial infection today. Patient is wondering if Yi Vargas could prescribe patient another round of Metronidazole Gel. Patient would prefer not to come into clinic at the moment. Current Can Nursing/Provider leave a detailed message: Action Needed: Please review and advise. Name of Medication (if relevant): Metronidazole Gel Pharmacy: [facility] in [place] documented in this encounter Plan of Treatment Not on filedocumented as of this encounter Visit Diagnoses Diagnosis Vaginosis Bacterial - Primary documented in this encounter Additional Health Concerns Assessment Noted Time PHQ-9 Depression Total Score: 21 04/07/2019 8:00 PM CS T documented as of this encounter Care Teams Corporate Financial Analyst Relationship Specialty Start Date End Date Zoë Nick, TIM, C.N.P. PCP - General Family Medicine 11/19/17 11/29/[address] [address] documented as of this encounter
--- OUTSIDE RECORDS SUMMARY | 2022-02-02 11:01 | XMS_ITS | Encounter Summary ---
:1980 Author Organization [facility] Address [address] [place] [address] Care Team Providers Name Role Phone Zoë Nick APRN, C.N.P. Primary Care Provider [phone] Encounter Details Date Type Department Care Team Description 06/11/2019 Clinical Communication Department of Bibi Ocampo, Medicine, [place] TIM, C.N.P. Clinic, in [facility] [address] [place], [place] [address] [facility] [address] [place], [place] [phone] [address] (Work) [phone] Social History Tobacco Use Types Packs/Day Years [...] or relatives? How often do you attend holiness or Never 2019 sabianism services? Do you belong to any clubs or No 01/29/2019 organizations such as holiness groups, unions, fraternal or athletic groups, or [...] this encounter Miscellaneous Notes Telephone Encounter - Allyn Ogden L.P.N. - 06/12/2019 11:41 AM CDT SUBJECTIVE CHIEF COMPLAINT / REASON FOR CALL No chief complaint on file. PLAN The following information was provided: Notified via voicemail that she will be having a lipid panel on 06-27-19 which includes triglycerides. Information/Education: not applicable The following references were used: provider Zoë Nick CNP Telephone Encounter - Belkis Melendez - 06/11/2019 4:45 PM CDT Reason for Communication: Patient is calling in and stated that she is wanting to know if she needs to get her triglycerides tested again now that she is on a medication. Please call patient back. Current Can Nursing/Provider leave a detailed message: yes Did the patient refuse triage through Nurse line? (for symptom based concerns): Action Needed: Please call patient back. Name of Medication (if relevant): documented in this encounter Plan of Treatment Not on filedocumented as of this encounter Visit Diagnoses Not on filedocumented in this encounter Additional Health Concerns Assessment Noted Time PHQ-9 Depression Total Score: 21 04/07/2019 8:00 PM CS T documented as of this encounter Care Teams Public Health Program Manager Relationship Specialty Start Date End Date Zoë Nick, WEAVING INSTRUCTOR, C.N.P. PCP - General Family Medicine 11/19/17 11/29/20 [address], [place] [address] documented as of this encounter
--- OUTSIDE RECORDS SUMMARY | 2022-02-02 11:01 | XMS_ITS | Encounter Summary ---
:1980 Author Organization [facility] Address [address] [place] [address] Care Team Providers Name Role Phone Zoë Nick APRN, C.N.P. Primary Care Provider [phone] Reason for Visit Reason Comments Seizures Having issues since then Appointment Request (Routine) - Closed Specialty Diagnoses / Procedures Referred By Contact Refer red To Contact Family Medicine Referral ID Status Reason Start Date Expiration Date Visits Requ ested Visits Authorized [id number] Closed 08/29/2019 08/28/2020 1 1 Encounter Details Date Type Department Care Team Description 09/01/2019 Office Visit Department of Family Zoë Nick [facility] er Seizures (HCC) (Primary Dx); Medicine, [place] TIM, C.N.P. Weakness Arm Right; Clinic, in [place], [address] Slurred Speech; [place], [place] Urgency Urinary; [facility] [address] [id number] Need Vaccine Immunization Tetanus And Di phtheria Toxoids And Pertussis; [place], [place] [phone] Nicotine Depen dence Cigarettes With Other Nicotine Induced Disorder [address] (Work) [phone] Social History Tobacco Use Types Packs/Day Years [...] do you attend jew or Never 2019 congregational services? Do you belong to any clubs [...] Sign Reading Time Taken Comments Blood Pressure 120/68 09/01/2019 2:14 PM CDT Pulse 66 09/01/2019 2:14 PM CDT Temperature 36.9 ??C (98.4 ??F) 09/01/2019 2:14 PM CDT Respiratory Rate 18 09/01/2019 2:14 PM CDT Oxygen Saturation - - Inhaled Oxygen Concentration - - Weight 86 kg (189 lb 7.8 oz) 09/01/2019 2:14 PM CDT Height - - Body Mass Index 30.58 01/29/2019 12:53 PM CDT documented in this encounter Patient Instructions Patient InstructionsZoë Nick APRN, C.N.P. - 09/01/2019 2:30 PM CDT Images from the original note were not included. Patient Education Nonepileptic events (NEE) Nonepileptic events Nonepileptic events (NEE) -- sometimes referred to as nonepileptic seizures, pseudoseizures or psychogenic seizures -- may resemble epileptic seizures (ES). Common symptoms could include one or more ofthe following: ?? Altered awareness or loss of consciousness ?? Memory lapses ?? Unresponsiveness ?? Inability or difficulty speaking ?? Shaking of part(s) or the whole body ?? Sensory changes (e.g., numbness, tingling, temperature changes) ?? Sudden or slow falls to the ground ?? Extreme fatigue or weakness ?? Dizziness ?? Inability or difficulties moving ?? Visual abnormalities (e.g., blurry or double vision) Diagnosing NEE Individuals with ES and NEE often are admitted to a specialized inpatient video-electroencephalogram(video-EEG) monitoring unit for diagnosis. This monitoring will provide information about the electrical activity of the brain waves). 1. Unlike routine outpatient EEG recordings, brain wave activity can be monitored continuously and over very long periods of time. This allows detection of changes in EEG activity, which might not produce any obvious signs of an event. The ability to identify such abnormalities is important because patients typically are not aware of minor electrical changes that may identify where epileptic seizuresoriginate in the brain. 2. Information obtained in this setting is the recording of brain wave activity and behavioral changes that occur with the typical event, at the same time. When an event occurs, it is captured on videotape that can also display the EEG data on a screen. The neurologist then reviews the videotape and EEG before, during and after the event. Patients and family members are asked to rate the extent to which the event was similar to those identified as a typical ???seizure.?? In patients with ES, behavior typically changes in a time-linked fashion to EEG changes, and can provide additional information regarding where the seizure began. For example, if the first change to occur was that of the left hand twitching, this could indicate electrical disruption occurring in the part of the right side of the brain that controls hand movement. In patients with NEE, behavioral changes may be variable or may not occur in a pattern that can be explained by scientific understanding of brain anatomy and function, and are not associated with EEG changes. About 30 to 40 percent of all patients admitted to an inpatient epilepsy monitoring unit at a comprehensive epilepsy center are found to have NEE. Frequently asked questions What causes NEE? The exact cause of NEE may not be identified at the time the diagnosis is made. Patients often are unaware of how the events developed or why they occur. It is known, however, that up to 80 percent of individuals with NEE have had traumatic experiences (e.g., abuse/neglect, motor vehicle accidents, work-related injuries) and/or have ongoing medical conditions that may include chronic body pain, chronic headaches, fibromyalgia or other ongoing medical disorders. If NEE are ???stress-related,?? why do these events also occur when I???m relaxed or doing something that I enjoy? Many patients with NEE have dissociative experiences. Dissociation refers to a disconnection from complete awareness, and this may involve a disconnection from one???s self, time and/or environment. Dissociative experiences range from normal everyday occurrences to those that significantly impair daily functioning. Common examples of dissociative experiences include daydreaming, ???spacing out,?? deep meditation and ???highway hypnosis.?? For example, most of us had the experience of driving to a particular location, only to get out of the car and have the sense that we cannot recall how we got there. There isno consistent recall of events after leaving the house, and yet it is clear that complex activity and thought processes (e.g., changing lanes, making turns, avoiding other vehicles) occurred outside complete awareness. In more serious forms, this type of dissociation may occur without warning and withincreased frequency and duration - to the point that individuals are unable to recall minutes, hoursor even days of their lives. Shouldn???t stress reactions be most evident at the time the stressful events occur, rather than as a ???delayed?? reaction occurring hours, days or even years later? Particularly with extreme events, such as those involving emotional or physical trauma, stress reactions can emerge at a time far removed from the actual event. Post-Traumatic Stress Disorder (PTSD) isone example of delayed physical and psychological illness following trauma exposure. veterans, for example, typically do not develop disabling anxiety and fear symptoms in the throes of combat. Rather, PTSD symptoms emerge many weeks to years later, after returning home to a place that is safe and where no threat of physical harm exists. Does a diagnosis of NEE mean I???m faking these events? Absolutely not. Patients, family members and even health care providers may unfortunately leap to this conclusion. The symptoms and events are real and effective treatment is available. Will anti-seizure medications need to be continued or prescribed? Because NEE are not associated with abnormal electrical brain wave activity, anti-seizure medications are not useful to control these events. Rather, one may feel better once these medications are discontinued. Psychiatrists may prescribe these medications to treat other symptoms such as pain, headache or mood disorders (e.g., anxiety or depression) that may occur in patients with NEE. How are NEE treated? Treatment varies from individual to individual. Determining a specific approach or treatment plan takes time and is guided by the process of understanding the unique combination of factors and/or issues underlying NEE symptoms. It is important to respect the fact that each individual has his/her own set of stressors, methods of coping with emotional and physical distress, and varying levels of emotional and social resources. It also is important to know that NEE are often the result of long-standingpsychological conflict or emotional concerns. Treatment involves some combination of the following: ?? Patient and family education ?? Cognitive behavioral therapy (CBT) targeting specific problems/issues, coping skills, relaxation techniques, stress management skills, and healthier ways of thinking and responding to stressors; this therapy is typically provided by a neuropsychologist with expertise in CBT. ?? Increased insight regarding the relationship between physical symptoms and one???s unique response to emotional and physical stress ?? Physical reconditioning ?? Improved sleep habits ?? Pain rehabilitation; this therapy is typically provided by pain rehabilitation centers or pain clinics. ?? Treatment of mood disorders by psychiatrists Use caution when participating in activities that might result in injury or harm should NEE occur. The diagnosis of NEE truly is considered to be ???good news.?? NEE is a treatable disorder that is not due to a neurological disease. Treatment can lead to a significant decrease and ultimate elimination of events, as well as improved memory, functional independence and well being. This material is for your education and information only. This content does not replace medical advice, diagnosis or treatment. New medical research may change this information. If you have questions about a medical condition, always talk with your health care provider. ? 2013 [facility] [employer] ([facility]). All rights reserved. [id number] documented in this encounter Progress Notes Zoë Nick APRN, C.N.P. - 09/01/2019 2:30 PM CDT SUBJECTIVE CHIEF COMPLAINT: Chief Complaint Patient presents with ??? 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 She continues to follow with psychiatry in [place]. Ten months ago from prior to stopping drinking she had two witnessed seizures with loss of bladder control. She was not seen at the time. Since then she has noted weakness in her right arm with intermittent slurred speech. We discussed referral to neurology for further evaluation. Second concern is urinary urgency. I would like to check urinalysis with micro, she voided prior to the appointment today so will return tomorrow to leave a urine sample. She continues to smoke, she has been advised to quit. She states she is going to check with her insurance to see if they will cover nicotine lozenges. REVIEW OF SYSTEMS: A 10 system review of constitutional, cardiovascular, respiratory, musculoskeletal, endocrine, skin,HEENT, genitourinary, psychiatric and neurologic systems was obtained and is unremarkable except as noted above. The following portions of the patient's history were reviewed and updated as appropriate: allergies,current medications, family history, medical history, social history, surgical history and problem list. ALLERGIES: Allergies Allergen Reactions ??? Eszopiclone Nausea And Vomiting ??? Latex Other (see comments) ??? Morphine GI intolerance ??? Naproxen Sodium Other (see comments) ??? Piroxicam Rash MEDICATIONS: Current Outpatient Medications: ??? acamprosate (CAMPRAL) 333 mg EC tablet, , Disp: , Rfl: ??? acetaminophen (TYLENOL) 500 mg capsule, Take by mouth every 6 (six) hours as needed for pain., Disp: , Rfl: ??? arwazcc-rfnzscyjnfhel-wdebcguz (EXCEDRIN MIGRAINE) 250-250-65 mg per tablet, Take [...] hidradenitis suppurativa , Disp: , Rfl: ??? divalproex (DEPAKOTE ER) 250 mg 24 hr tablet, , Disp: , Rfl: ??? docusate sodium (COLACE) 100 mg capsule, Take 100 mg by mouth 2 (two) times a day as needed. , Disp: , Rfl: ??? gabapentin (NEURONTIN) 300 mg capsule, Take 300 mg by mouth 3 (three) times a day., Disp: , Rfl: ??? gemfibrozil (LOPID) 600 mg tablet, Take 1 tablet (600 mg total) by mouth 2 (two) times a day., Disp: 180 tablet, Rfl: 3 ??? hydrOXYzine (ATARAX) 25 mg tablet, , Disp: , Rfl: ??? ibuprofen (ADVIL,MOTRIN) 200 mg capsule, Take 600 mg by mouth every 6 (six) hours as needed for pain., Disp: , Rfl: ??? levonorgestrel (MIRENA) 20 mcg/24 hr (5 years) IUD, 1 each by intrauterine route once. Place 06/01/2017 to be removed in 5 years, Disp: , Rfl: ??? lidocaine (LMX) 4 % cream, Apply 1 application topically 4 (four) times a day as needed for pain. For knee pain , Disp: , Rfl: ??? lithium carbonate 300 mg tablet, Take 300 mg by mouth 2 (two) times a day. 300 mg am and 1200 mgpm (prescribed by psych), Disp: , Rfl: ??? multivitamin capsule, Take 1 capsule by mouth daily., Disp: , Rfl: ??? OLANZapine (ZyPREXA) 15 mg tablet, , Disp: , Rfl: ??? pantoprazole (PROTONIX) 40 mg EC tablet, Take 1 tablet (40 mg total) by mouth every morning before breakfast., Disp: 90 tablet, Rfl: 3 ??? propranolol (INDERAL) 10 mg tablet, Take 10 mg by mouth as needed. For anxiety , Disp: , Rfl: ??? melatonin 3 mg tablet, Take 3 mg by mouth at bedtime., Disp: , Rfl: ??? naltrexone (DEPADE) 50 mg tablet, Take 50 mg by mouth daily., Disp: , Rfl: OBJECTIVE LABS and DIAGNOSTICS: Urinalysis is pending. VITAL SIGNS: Temperature: [36.9 ??C] 36.9 ??C Resp Rate: [18] 18 Blood Pressure: (120)/(68) 120/68 Pulse Rate: [66] 66 PHYSICAL EXAM: General: In general, the patient is pleasant and appears stated age. Skin: Without lesion. Eyes: PERRLA. EOMI intact. Fundi sharp discs. Conjunctiva and lids normal. ENT: Tympanic membranes clear bilaterally. Nasal mucosa without erythema or congestion. Mouth without erythema or exudate. Lymph Nodes: Neck supple without adenopathy, no thyromegaly. Carotid pulses are equal bilaterally. Peripheral Vessels: Femoral, dorsal, pedal and posterior tibial pulses are equal. Heart: Regular rate and rhythm without murmur. Lungs: Clear to auscultation, good inspiratory effort. Abdomen: Soft, nontender, no palpable mass, no hepatosplenomegaly. Extremities: Warm, dry, no cyanosis or peripheral edema. Mental Status: Alert and oriented times three. Neurologic: Deep tendon reflexes are +2 and symmetrical. ASSESSMENT / PLAN #1 Other Seizures (HCC) #2 Weakness Arm Right #3 Slurred Speech Scheduling consult with Neurology at [facility] in [place] for further evaluation. - Neurology - General consult (clinic); Future; Expected date: 09/01/2019 #4 Urgency Urinary - Urinalysis with Microscopic if Indicated; Future; Expected date: 09/01/2019 #5 Need Vaccine Immunization Tetanus And Diphtheria Toxoids And Pertussis - Tdap: Gzwgiza-sexsykpezg-uznpikxku pertussis vaccine (7 years and older) #6 Nicotine Dependence Cigarettes Smoking cessation encouraged, counseling including options for medications available discussed. #1 Set a specific quit date. #2 Withdrawal symptoms are at their worst for the first 48 hr after quitting. By the end of the first week, most physical withdrawal symptoms disappear. #3 Seek out a support network (ask family, friends and ex-smokers for their support; joint a local support group). #4 Think about what triggers your desire to use tobacco, and change her daily routine to avoid thosesituations. #5 Practice coping strategies such as deep breathing or exercise to take care mind off tobacco use. #6 Think positively. Tell yourself that you are health ear and happy your living life tobacco free. No matter what your age, the benefits of quitting tobacco use are tremendous. Within a few weeks, people who quit smoking have improved circulation, produce less phlegm, and do not cough or wheezes often. If you quit, you will improve your chances of living longer and staying healthier. Within a few years of quitting, people will have lower risks of cancer, heart disease, and other chronic diseases then if they had continued to smoke. Total time spent with the patient on smoking cessation counseling 8 minutes. HEALTH MAINTENANCE: Up-to-date. documented in this encounter Plan of Treatment Not on filedocumented as of this encounter Results Urinalysis with Microscopic if Indicated (09/08/2019 1:10 PM CDT) P athologist Signature Source Midstream 09/08/2019 FB60 1:18 PM CDT Clarity Clear Clear 09/08/2019 FB60 1:18 PM CDT Color Yellow 09/08/2019 FB60 1:18 PM CDT Comment: ----REFERENCE VALUE---- Colorless Yellow Faye Blood Negative Negative 09/08/2019 1:18 PM CDT FB60 Nitrite Negative Negative 09/08/2019 1:18 PM CDT FB60 Leukocyte Esterase Negative Negative 09/08/2019 1:18 PM CD T FB60 Protein Negative mg/dL 09/08/2019 1:18 PM CDT FB60 Comment: ----REFERENCE VALUE---- Negative Trace Glucose Negative Negative mg/dL 09/08/2019 1:18 PM CDT FB 60 Ketones, QI(U) Negative Negative mg/dL 09/08/2019 1:18 PM C DT FB60 Bilirubin Negative Negative 09/08/2019 1:18 PM CDT FB60 pH 7.0 5.0 - 8.0 09/08/2019 1:18 PM CDT FB60 Specific [place] 1.010 1.001 - 1.035 09/08/2019 1:18 PM CDT FB60 Urobilinogen 0.2 0.2 - 1.0 mg/dL 09/08/2019 1:18 PM CD T FB60 Specimen Anatomical Collection Method Collection Time Receive d Time (Source) Location / / Volume Laterality Urine (Urine, 09/08/2019 1:10 PM 09/08/19 1:14 Clean Catch) CDT PM CDT Zoë Nick APRN, C.N.P. LAB URINE ORDERABLES Performing Organization Address City/State/ZIP Code Phon e Number [facility]- [address] [place] [address] [facility] [address] [place] [address] System in [place] [address] [facility] documented in this encounter Visit Diagnoses Diagnosis Other Seizures (HCC) - Primary Weakness Arm Right Slurred Speech Urgency Urinary Need Vaccine Immunization Tetanus And Di phtheria Toxoids And Pertussis Nicotine Dependence Cigarettes With Othe r Nicotine Induced Disorder documented in this encounter Additional Health Concerns Assessment Noted Time PHQ-9 Depression Total Score: 04/07/2019 8:00 PM CS T documented as of this encounter Care Teams Outpatient Coordinator Relationship Specialty Start Date End Date Zoë Nick, TIM, C.N.P. PCP - General Family Medicine 11/19/17 11/29/[address] [id number] documented as of this encounter
--- OUTSIDE RECORDS SUMMARY | 2022-02-02 11:01 | XMS_ITS | Encounter Summary ---
:1980 Author Organization [facility] Address [address] [place] [address] Care Team Providers Name Role Phone Zoë Nick APRN, C.N.P. Primary Care Provider Reason for Visit Reason Comments Vaginitis/Bacterial Vaginosis recurrent bv Appointment Request (Routine) - Closed Specialty Diagnoses / Procedures Referred By Contact Refer red To Contact Obstetrics and Diagnoses . [facility] Gynecology Procedures . Referral ID Status Reason Start Date Expiration Date Visits Requ ested Visits Authorized [id number] Closed 09/29/2019 09/28/2020 1 1 Encounter Details Date Type Department Care Team Description 09/29/2019 Office Visit Department of Rebecca Mccullough, Discharge Karin jonas (Primary Dx); Obstetrics and ROTARY FILTER OPERATOR, C.N.P., Vaginosis Ba cterial; Gynecology in [place]. Surveillance I ntrauterine Device [place], [place] [address] [place] [phone] Social History Tobacco Use Types Packs/Day Years [...] or relatives? How often do you attend pentecostal or Never 2019 restorationist services? Do you belong to any clubs or No 01/29/2019 organizations such as pentecostal groups, unions, fraternal or athletic groups, or [...] pay for the very basics like Not jaden aliyah hard 10/24/2019 food, housing, medical care, [...] Sign Reading Time Taken Comments Blood Pressure 118/78 09/29/2019 2:07 PM CDT Pulse - - Temperature - - Respiratory Rate - - Oxygen Saturation - - Inhaled Oxygen Concentration - - Weight 86.2 kg (190 lb 0.6 oz) 09/29/2019 2:07 PM CDT Height - - Body Mass Index 30.67 01/29/2019 12:53 PM CDT documented in this encounter Progress Notes Rebecca Mccullough APRN, C.N.P., M.S.N. - 09/29/2019 2:00 PM CDT SUBJECTIVE CHIEF COMPLAINT Chief Complaint Patient presents with ??? Vaginitis/Bacterial Vaginosis recurrent bv REASON FOR VISIT Marlin Plummer is a 39 y.o. female who is seen with complaints of recurrent bacterial vaginosis.She does have a Mirena IUD which is been in place since 06/06/2017. She has no regular menstrual periods with this in place. She has no concerns for STIs. She complains of odor and discharge. She states she would prefer an oral medication. States that she has now been sober for almost 1 year and knowsthat the metronidazole and alcohol do not mix and would like to use the oral metronidazole if she has a bacterial vaginosis. CURRENT MEDICATIONS Current Outpatient Medications Medication Sig ??? acamprosate (CAMPRAL) 333 mg EC tablet ??? acetaminophen (TYLENOL) 500 mg capsule Take by mouth every 6 (six) hours as needed for pain. ??? dwsiuao-piofqilgsffjf-yhpunwpb (EXCEDRIN MIGRAINE) 250-250-65 mg per tablet Take 1 tablet by mouth every 6 (six) hours as needed for pain. ??? clindamycin (for_CLEOCIN T) 1 % lotion Apply 1 application topically 2 (two) times a day as needed. For hidradenitis suppurativa ??? divalproex (DEPAKOTE ER) 250 mg 24 hr tablet ??? gabapentin (NEURONTIN) 600 mg tablet ??? [...] Take 1 capsule by mouth daily. ??? OLANZapine (ZyPREXA) 15 mg tablet ??? pantoprazole (PROTONIX) 40 mg EC tablet Take 1 tablet (40 mg total) by mouth every morning before breakfast. ??? propranolol (INDERAL) 10 mg tablet Take 10 mg by mouth as needed. For anxiety ??? bismuth subsalicylate (PEPTO BISMOL) 262 mg/15 mL suspension Take 30 mL by mouth every 6 (six) hours as needed for indigestion. ??? cetirizine (for_ZyrTEC) 10 mg tablet Take 10 mg by mouth daily as needed. ??? docusate sodium (COLACE) 100 mg capsule Take 100 mg by mouth 2 (two) times a day as needed. ??? gabapentin (NEURONTIN) 300 mg capsule Take 300 mg by mouth 3 (three) times a day. ??? metroNIDAZOLE (METROGEL) 0.75 % vaginal gel Insert into the vagina daily. Insert 1 applicator full into the vagina daily for 5 days. (Patient not taking: Reported on 09/29/2019 ) ??? naltrexone (DEPADE) 50 mg tablet Take 50 mg by mouth daily. Allergies Allergen Reactions ??? Eszopiclone Nausea And Vomiting ??? Latex Other (see comments) ??? Morphine GI intolerance ??? Naproxen Sodium Other (see comments) ??? Piroxicam Rash MEDICAL HISTORY Past Medical History: Diagnosis Date ??? Abuse Tobacco Smoking ??? Allergy Seasonal ??? Arthritis Rheumatoid ([facility]) ??? Bipolar I Disorder ([facility]) ??? Disturbance Sleep 12/18/2017 ??? Fibromyalgia ??? Hidradenitis Suppurativa ??? Hypertriglyceridemia 04/28/2019 ??? Migraine Headache ??? Moderate Or Severe Use Disorder (Dependence) Alcohol Remission ([facility]) 01/29/2019 ??? Persistent Depressive Disorder ??? Posttraumatic Stress Disorder Prolonged ??? Raynaud's Disease ??? Reflux Esophageal GYNECOLOGY HISTORY: OB History 4 Para 3 Term 2 1 AB 1 Living 3 SAB 1 TAB 0 Ectopic 0 Molar 0 Multiple 0 Live Births 3 Menstrual History: No LMP recorded. (Menstrual status: Intrauterine Device). OBJECTIVE VITAL SIGNS Blood Pressure: 118/78 Weight: 86.2 kg PHYSICAL EXAMINATION Sensitive portion of this exam was chaperoned by Steffanie Leonardo L.P.N.. General: Pleasant, 39-year-old female no acute distress. Gynecology exam: Normal-appearing external female genitalia. Bartholin, [place], Urethral is negative.Vaginal introitus appears within normal limits. There are no sores, lesions or ulcerations noted. Speculum exam shows pink rugated vaginal tissues with a small amount of cloudy vaginal discharge. IUD strings are noted to be approximately 2 cm in length and this appears unchanged from her documented string length at time of placement. Vaginitis panel was obtained and is pending. Vaginal pH is noted lizbeth 5.6. ASSESSMENT / PLAN #1 Vaginal discharge and odor, bacterial vaginosis Will treat with oral metronidazole 500 mg, 1 tablet twice daily for 7 days. Will have her follow up with a vaginitis panel to ensure complete resolution and consider preventative treatment as she has had concerns about recurrence. # 2 IUD surveillance She was reassured her IUD appears to be in appropriate position based on her string length. documented in this encounter Plan of Treatment Not on filedocumented as of this encounter Procedures Procedure Name Priority Date/Time Associated Diagnosis Comme nts VAGINITIS PANEL Routine 09/29/2019 2:31 PM Discharge Vaginal R esults for this CDT procedure are i n the results section. documented in this encounter Results (ABNORMAL) Vaginitis Panel (09/29/2019 2:31 PM CDT) [facility] gist Method Time Signature Isi Negative Negative 09/29/2019 [place] species, DNA 5:15 PM CDT Gardnerella Positive (A) Negative 09/29/2019 [place] vaginalis, DNA 5:15 PM CDT Trichomonas Negative Negative 09/29/2019 [place] vaginalis, DNA 5:15 PM CDT Specimen Anatomical Collection Method Collection Time Receive d Time (Source) Location / / Volume Laterality Swab (Vagina) 09/29/2019 2:31 PM 09/29/19 20 4:04 CDT PM CDT Rebecca Mccullough APRN, C.N.P., M.S.N. LAB MICROBIOLOGY - G ENERAL ORDERABLES Performing Organization Address City/State/ZIP Code Phon e Number [facility]- [address] [place] [address] [place] [address] System in [place] [address] [facility] documented in this encounter Visit Diagnoses Diagnosis Discharge Vaginal - Primary Vaginosis Bacterial Surveillance Intrauterine Device documented in this encounter Additional Health Concerns Assessment Noted Time PHQ-9 Depression Total Score: 21 04/07/2019 8:00 PM CS T documented as of this encounter Care Teams Clerical And Office Support Workers Relationship Specialty Start Date End Date Zoë Nick APRN, C.N.P. PCP - General Family Medicine 11/19/17 11/29/[address] [place] [address] documented as of this encounter
--- OUTSIDE RECORDS SUMMARY | 2022-02-02 11:01 | XMS_ITS | Encounter Summary ---
:1980 Author Organization [facility] Address [address] [place] [address] Care Team Providers Name Role Phone Zoë Nick APRN, C.N.P. Primary Care Provider [phone] Reason for Visit Reason Comments COVID Nurse Line Encounter Details Date Type Department Care Team Description 08/29/2019 Clinical Communication Department of Zoë Nick COV ID Nurse Line Family MedicineAngelica APRN, C.N.P. [facility], [address] t in [facility] [phone] [place] [address] [place], [place] (Work) [phone] Social History Tobacco Use Types Packs/Day [...] or relatives? How often do you attend denominational or Never 2019 uatsdin services? Do you belong to any clubs or No 01/29/2019 organizations such as denominational groups, unions, fraternal or athletic groups, or [...] this encounter Miscellaneous Notes Telephone Encounter - Scarlet Wasserman - 08/29/2019 3:20 PM CDT 1. Do you have a pending COVID test because you had symptoms or exposure to someone with COVID or you have tested positive for COVID in the last 30 days? no 2. In the past 14 days, do you, anyone in the household, or anyone you have had prolonged exposure have any of the following? a. Fever = 38.0 C (100.5 F) lasting 24 hours? no b. New symptoms (Specifically: headache, cough, shortness of breath, respiratory distress, sore throat, diarrhea, nausea, vomiting, chills and repeated shaking with chills, myalgia's (muscle aches), loss of smell, or change or loss of taste sensation)? no c. Had close contact with a patient with known or possible COVID-19 in the last 14 days? no Route reply to: Scheduling Contact Number: {Dept Phone Number documented in this encounter Plan of Treatment Not on filedocumented as of this encounter Visit Diagnoses Not on filedocumented in this encounter Additional Health Concerns Assessment Noted Time PHQ-9 Depression Total Score: 21 04/07/2019 8:00 PM CS T documented as of this encounter Care Teams Engineering Technical Analyst Relationship Specialty Start Date End Date Zoë Nick APRN, C.N.P. PCP - General Family Medicine 11/19/17 11/29/20 [address] [place] [phone] documented as of this encounter
--- OUTSIDE RECORDS SUMMARY | 2022-02-02 11:01 | XMS_ITS | Encounter Summary ---
:1980 Author Organization [facility] Address [address] [place] [address] Care Team Providers Name Role Phone Zoë Nick APRN CSarahNDallas Primary Care Provider [phone] Reason for Visit Reason Onset Date Comments Cyst removal POST OP concerns 06/12/2019 Encounter Details Date Type Department Care Team Description 06/12/2019 Clinical Communication Department of Jesus Collins Cyst removal POST OP Obstetrics and TMelody concerns Gynecology in [place], [place] [address] [place] [address] Social History Tobacco Use Types [...] or relatives? How often do you attend quaker or Never 2019 yarsanism services? Do you belong to any clubs or No 01/29/2019 organizations such as quaker groups, unions, fraternal or athletic groups, or [...] documented as of this encounter Miscellaneous Notes Addendum Note - Shahzad Barbosa R.N. - 06/12/2019 2:01 PM CDT Addended by: SHAHZAD BARBOSA on: 06/12/2019 02:01 PM Modules accepted: Orders Telephone Encounter - Shahzad Barbosa R.N. - 06/12/2019 1:57 PM CDT SUBJECTIVE Pea size lump on vagina CHIEF COMPLAINT / REASON FOR CALL Cyst removal POST OP concerns ASSESSMENT S/p right bartholin's glad excision performed on 05/08/19. After surgery, she was having more pain that required more pain medication. This went away and then in the last week, she has noticed a pea sizelump on/over the incision. She stated this is painful and modi at times. Denies any discharge or odor but states that it bleeds a little, probably from irritation from pants/underwear. She feels well overall and denies a fever. PLAN Advised to make an appointment to be seen for evaluation. Advised to keep the area clean and dry. Advised to present for evaluation with any redness, drainage, odor or increasing symptoms or fever. Disposition/Recommendation: patient transferred to the appointment desk. Information/Education: patient/caller able to teach back. Caller agreeable to plan of care: yes. The following references were used: nursing clinical judgment. Telephone Encounter - Shahzad Barbosa R.N. - 06/12/2019 11:52 AM CDT Left message for patient to return our call. Telephone Encounter - Soni Lara - 06/12/2019 11:26 AM CDT Reason for Communication: Patient calling to state she saw Doctor Dennis for cyst removal in vaginal area (patient does not remember what day she was seen) and stating she is now experiencing concerns with the incision cite. Patient stating she is experiencing pain on the side of the incision as well as a lump and stating, It kind of modi and feels uncomfortable. Doctor Dennis out of clinic until July and patient stating she usually sees Yi Kaye so would prefer to see her for this concern ifpossible. Bottom Finisher unsure if scheduling with Yi is appropriate for this concern Current Can Nursing/Provider leave a detailed message: Yes (patient stating she has stuff going on today andwill be away from her phone for most of the day so asking nurse please leave her a detailed message regarding this) Did the patient refuse triage through Nurse line? (for symptom based concerns): No. NL does not apply Action Needed: Please contact patient regarding this Name of Medication (if relevant): N/A documented in this encounter Plan of Treatment Not on filedocumented as of this encounter Visit Diagnoses Not on filedocumented in this encounter Additional Health Concerns Assessment Noted Time PHQ-9 Depression Total Score: 21 04/07/2019 8:00 PM CS T documented as of this encounter Care Teams Rag Cutting Machine Operator Relationship Specialty Start Date End Date Zoë Nick, TIM, C.N.P. PCP - General Family Medicine 11/19/17 11/29/[address] [phone] documented as of this encounter
--- OUTSIDE RECORDS SUMMARY | 2022-02-02 11:01 | XMS_ITS | Encounter Summary ---
:1980 Author Organization [facility] Address [address] [place] [address] Care Team Providers Name Role Phone Zoë Nick APRN, C.N.P. Primary Care Provider [phone] Reason for Visit Reason Comments COVID Inquiry Encounter Details Date Type Department Care Team Description 09/29/2019 Clinical Communication Department of Bibi Ocampo, COVID Inquiry Medicine, [place] TIM, C.N.P. [facility], in [place], [address] [place], [place] [address] [facility] [address] [place], [place] [phone] (Work) [phone] Social History Tobacco Use Types Packs/Day Years [...] or relatives? How often do you attend hindu or Never 2019 tenriism services? Do you belong to any clubs or No 01/29/2019 organizations such as hindu groups, unions, fraternal or athletic groups, or [...] this encounter Miscellaneous Notes Telephone Encounter - Mica Thapa - 09/29/2019 8:11 AM CDT ([facility] and [facility] locations only: If the patient is not having symptoms and is requesting COVID-19 Nasal Swab testing only, use the process listed in the COVID-19 Patient Requesting COVID PCR Test OTG COVID-19 [place] Patient Requesting COVID PCR Test). 1. Do [...] last 14 days? no Route reply to: na Scheduling Contact Number: [phone] documented in this encounter Plan of Treatment Not on filedocumented as of this encounter Visit Diagnoses Not on filedocumented in this encounter Additional Health Concerns Assessment Noted Time PHQ-9 Depression Total Score: 21 04/07/2019 8:00 PM CS T documented as of this encounter Care Teams Manager Sound Relationship Specialty Start Date End Date Zoë Nick, TIM, C.N.P. PCP - General Family Medicine 11/19/17 11/29/20 [address] [place] [phone] documented as of this encounter
--- OUTSIDE RECORDS SUMMARY | 2022-02-02 11:01 | XMS_ITS | Encounter Summary ---
:1980 Author Organization [facility] Address [address] [place] [address] Care Team Providers Name Role Phone Zoë Nick APRN C.N.PSarah Primary Care Provider [phone] Encounter Details Date Type Department Care Team Description 09/08/2019 Hospital Encounter Department of Zoë Nick Urge ncy Urinary Laboratory Medicine in TIM CSarahN SarahPSarah [place], [place] [address] [facility] [place] [phone] Social History Tobacco Use Types Packs/Day Years [...] do you attend shinto or Never 2019 jain services? Do you [...] 6 (six) hours as needed for pain. ofgsgiv-aizwoeyampeva-jzzml Take 1 tablet by 0 ine (EXCEDRIN [...] 05/05/2019 02/17/2020 250 mg 24 hr tablet gemfibrozil (LOPID) 600 mg Take 1 tablet [...] mg pm (prescribed by psych) metroNIDAZOLE (METROGEL) Insert into the 70 g 0 201909/29/2019 0.75 % vaginal vagina daily. gelIndications: Vaginosis Insert 1 Bacterial applicator full into the vagina daily for 5 days. naltrexone (DEPADE) 50 mg Take 50 mg by 0 02/17/2020 tablet mouth daily. OLANZapine (ZyPREXA) 15 mg 0 0 02/17/2020 tablet propranolol (INDERAL) 10 mg Take 10 mg by 0 02/17/2020 tablet mouth as needed. For anxiety documented as of this encounter Plan of Treatment Not on filedocumented as of this encounter Procedures Procedure Name Priority Date/Time Associated Comments Diagnosis URINALYSIS WITH Routine 09/08/2019 1:10 PM Urgency Urinary Res ults for this MICROSCOPIC IF CDT procedure are in INDICATED, U the results section. documented in this encounter Results Urinalysis with Microscopic if [...] 8.0 09/08/2019 1:18 PM CDT FB60 Specific [place] 1.010 1.001 - 1.035 09/08/2019 1:18 PM CDT FB60 Urobilinogen 0.2 0.2 - 1.0 mg/dL 09/08/2019 1:18 PM CD T FB60 Specimen Anatomical Collection Method Collection Time Receive d Time (Source) Location / / Volume Laterality Urine (Urine, 09/08/2019 1:10 PM 09/08/19 1:14 Clean Catch) CDT PM CDT Zoë Nick APRN, C.N.P. LAB URINE ORDERABLES Performing Organization Address City/State/ZIP Code Phon e Number [place] [address] [place] [address] [facility] [address] [place] [address] System in [address] documented in this encounter Visit Diagnoses Diagnosis Urgency Urinary documented in this encounter Additional Health Concerns Assessment Noted Time PHQ-9 Depression Total Score: 21 04/07/2019 8:00 PM CS T documented as of this encounter Care Teams Software Build Engineer Relationship Specialty Start Date End Date Zoë Nick APRN, C.N.P. PCP - General Family Medicine 11/19/17 11/29/20 [address], [place] [address] documented as of this encounter
--- OUTSIDE RECORDS SUMMARY | 2022-02-02 11:01 | XMS_ITS | Encounter Summary ---
:1980 Author Organization [facility] Address [address] [place] [address] Care Team Providers Name Role Phone Zoë Nick APRN, C.N.P. Primary Care Provider [phone] Encounter Details Date Type Department Care Team Description 09/29/2019 Orders Only Department of Family Zoë Nick APR N, Medicine, [facility], C.N. P. in [facility] [place] [address] [address] [place] [address] [phone] Social History Tobacco Use Types Packs/Day Years [...] or relatives? How often do you attend episcopal or Never 2019 pentecostal services? Do you belong to any clubs or No 01/29/2019 organizations such as episcopal groups, unions, fraternal or athletic groups, or [...] documented as of this encounter Care Teams Dental Director Relationship Specialty Start Date End Date Zoë Nick, TIM, C.N.P. PCP - General Family Medicine 11/19/17 11/29/20 [address] [place] [phone] documented as of this encounter
--- OUTSIDE RECORDS SUMMARY | 2022-02-02 11:01 | XMS_ITS | Encounter Summary ---
:1980 Author Organization [facility] Address [address] [place] [address] Care Team Providers Name Role Phone Zoë Nick APRN, C.N.P. Primary Care Provider [phone] Encounter Details Date Type Department Care Team Description 08/29/2019 Clinical Communication Department of Bibi Ocampo, Medicine, [place] TIM, C.N.P. Clinic, in [facility] [address] [place], [place] [address] [facility] [address] [place], [place] [phone] [address] (Work) [phone] Social History Tobacco Use Types Packs/Day Years [...] or relatives? How often do you attend latter-day or Never 2019 buddhist services? Do you belong to any clubs or No 01/29/2019 organizations such as latter-day groups, unions, fraternal or athletic groups, or [...] Notes Telephone Encounter - Raisa Chambers - 08/29/2019 1:35 PM CDT 1. Do you have a [...] documented as of this encounter Care Teams Comfort Advisor Relationship Specialty Start Date End Date Zoë Nick, TIM, C.N.P. PCP - General Family Medicine 11/19/17 11/29/20 [address] [place] [phone] documented as of this encounter
--- OUTSIDE RECORDS SUMMARY | 2022-02-02 11:01 | XMS_ITS | Encounter Summary ---
:1980 Author Organization [facility] Address [address] [place] [address] Care Team Providers Name Role Phone Zoë Nick APRN, C.NDallas Primary Care Provider [phone] Encounter Details Date Type Department Care Team Description 05/07/2019 Clinical Communication Department of Laury Mercedes Obstetrics and E, LSarahPSarahNSarah Gynecology in [address] [place], [place] [address] [place], [place] [phone] [address] (Work) [phone] Social History Tobacco Use Types Packs/Day Years [...] do you attend scientology or Never 2019 gnosticism services? Do you belong to any clubs [...] this encounter Miscellaneous Notes Telephone Encounter - Cecilia Mitchell - 05/07/2019 4:17 PM CST PA for Bartholin gland Excision with Dennis on 05/08/19 at [facility] has been sent. TURE TESTER Telephone Encounter - Laury Mercedes L.PHarvinder - 05/07/2019 2:[address] [facility] Surgery Clinic Checklist Patient Contact Number: [phone] Surgeon: Dennis Surgical Service: (_) Orthopedics (_) General surgery (_) Ophthalmology (_) Podiatry (_) ENT (_) Urology (X) OB / Gynecology (_) Other Date of Surgery: 03-07-2020 Place of Surgery: [facility] Procedure (as written on Consent) Bartholin gland Excision Right, Left, Bilateral, N/A: N/A Diagnosis (reason for surgery): ICD-10: N75.0 CPT:unsure Case Type: (_) Outpatient (_) AM Admit (_) Inpatient (_)x One day surgery Pre-op MD: Osbaldo Post-Op Appt:(time frame when to return): 2 weeks Surgery Brochure Given: (X) Yes (_) No (_) Mailed to Patient TURE TESTER documented in this encounter Plan of Treatment Not on filedocumented as of this encounter Visit Diagnoses Not on filedocumented in this encounter Additional Health Concerns Assessment Noted Time PHQ-9 Depression Total Score: 21 04/07/2019 8:00 PM CS T documented as of this encounter Care Teams Independent Contractor Relationship Specialty Start Date End Date Zoë Nick, INFECTIOUS DISEASE TECHNICIAN, C.N.P. PCP - General Family Medicine 11/19/17 11/29/20 [address], [place] [address] documented as of this encounter
--- OUTSIDE RECORDS SUMMARY | 2022-02-02 11:01 | XMS_ITS | Encounter Summary ---
:1980 Author Organization [facility] Address [address] [place] [address] Care Team Providers Name Role Phone Zoë Nick APRN C.NSarahPSarah Primary Care Provider [phone] Reason for Visit Appointment Request (Routine) - Closed Specialty Diagnoses / Procedures Referred By Contact Refer red To Contact Laboratory Medicine Referral ID Status Reason Start Date Expiration Date Visits Requ ested Visits Authorized [id number] Closed 05/28/2019 05/27/2020 1 1 Encounter Details Date Type Department Care Team Description 05/30/2019 Hospital Encounter Department of Hoda Horton I Depressed Severe Without Psychosis (HCC); Laboratory Medicine K, COAGULATING BATH MIXER Medication Therapy Mcc Not Anticoa fabianalant in [address] [place] [phone] Social History Tobacco Use Types Packs/Day Years [...] or relatives? How often do you attend orthodox or Never 2019 jain services? Do you belong to any clubs or No 01/29/2019 organizations such as orthodox groups, unions, fraternal or athletic groups, [...] 6 (six) hours as needed for pain. kuakjdu-[id number] Take 1 tablet by 0 ine (EXCEDRIN [...] Name Priority Date/Time Associated Diagnosis Comme nts CBC WITH Routine 05/30/2019 8:14 AM Bipolar I Depressed Re sults for this DIFFERENTIAL, B DISABILITIES SERVICES OFFICER Severe Without procedure are in Psychosis (HCC) the results Medication Therapy section. Mcc Not Anticoagulant documented in this encounter Results (ABNORMAL) CBC with Differential, Blood (05/30/2019 8:14 AM DISABILITIES SERVICES OFFICER) [facility] gist Method Time Signature Hemoglobin 13.0 11.6 - 05/30/2019 FB60 15.0 g/dL 8:50 AM DISABILITIES SERVICES OFFICER Hematocrit 41.0 35.5 - 05/30/2019 FB60 44.9 % 8:50 AM DISABILITIES SERVICES OFFICER Erythrocytes 4.23 3.92 - 05/30/2019 FB60 5.13 8:50 AM DISABILITIES SERVICES OFFICER x10(12)/L MCV 96.9 78.2 - 05/30/2019 FB60 97.9 fL 8:50 AM DISABILITIES SERVICES OFFICER RBC Distrib Width 13.2 12.2 - 05/30/2019 FB60 16.1 % 8:50 AM DISABILITIES SERVICES OFFICER Platelet Count 403 (H) 157 - 371 05/30/2019 FB60 x10(9)/L 8:50 AM DISABILITIES SERVICES OFFICER Leukocytes 8.4 3.4 - 9.6 05/30/2019 FB60 x10(9)/L 8:50 AM DISABILITIES SERVICES OFFICER Neutrophils 5.56 1.56 - 05/30/2019 FB60 6.45 8:50 AM DISABILITIES SERVICES OFFICER x10(9)/L Lymphocytes 1.72 0.95 - 05/30/2019 FB60 3.07 8:50 AM DISABILITIES SERVICES OFFICER x10(9)/L Monocytes 0.58 0.26 - 05/30/2019 FB60 0.81 8:50 AM DISABILITIES SERVICES OFFICER x10(9)/L Eosinophils 0.46 0.03 - 05/30/2019 FB60 0.48 8:50 AM DISABILITIES SERVICES OFFICER x10(9)/L Basophils 0.03 0.01 - 05/30/2019 FB60 0.08 8:50 AM DISABILITIES SERVICES OFFICER x10(9)/L Specimen Anatomical Collection Method Collection Time Receive d Time (Source) Location / / Volume Laterality Blood (Blood, 05/30/2019 8:14 AM 05/30/19 20 8:15 Venous) DISABILITIES SERVICES OFFICER AM DISABILITIES SERVICES OFFICER Hoda Horton COAGULATING BATH MIXER LAB BLOOD ADD-ON Performing Organization Address City/State/ZIP Code Phon e Number [facility] [address] [place] [address] [address] [facility] [address] [place] [address] System in [place] [address] documented in this encounter Visit Diagnoses Diagnosis Bipolar I Depressed Severe Without Psych osis (HCC) Medication Therapy Mcc Not Anticoa gulant documented in this encounter Additional Health Concerns Assessment Noted Time PHQ-9 Depression Total Score: 21 04/07/2019 8:00 PM CS T documented as of this encounter Care Teams Sweatband Separator Relationship Specialty Start Date End Date Zoë Nick, TIM, C.N.P. PCP - General Family Medicine 11/19/17 11/29/[address], [place] [phone] documented as of this encounter
--- OUTSIDE RECORDS SUMMARY | 2022-02-02 11:01 | XMS_ITS | Encounter Summary ---
:1980 Author Organization [facility] Address [address] [place] [address] Care Team Providers Name Role Phone Zoë Nick APRN, C.N.P. Primary Care Provider [phone] Reason for Visit Reason Comments Referral Neurology Encounter Details Date Type Department Care Team Description 09/12/2019 Clinical Communication Department of Zoë Nick Family MedicineAngelica APRN, (Neurology) [facility], C.N.P. in [facility] [address] [place] [phone] Social History Tobacco Use Types Packs/Day [...] or relatives? How often do you attend faith or Never 2019 jew services? Do you belong to any clubs or No 01/29/2019 organizations such as faith groups, unions, fraternal or athletic groups, or [...] this encounter Miscellaneous Notes Telephone Encounter - Alexa Thornton - 09/12/2019 9:34 AM CDT Thank you for your order. Our Business Office Team is working with the patient, and we are unable to schedule the appointment for Neurology at this time. If we obtain approval to schedule from the Business Office Team, we will schedule. If you have questions, please call us at [phone] or [phone]. Sincerely, [facility] for Referring Physicians Appointment Office documented in this encounter Plan of Treatment Not on filedocumented as of this encounter Visit Diagnoses Not on filedocumented in this encounter Additional Health Concerns Assessment Noted Time PHQ-9 Depression Total Score: 21 04/07/2019 8:00 PM CS T documented as of this encounter Care Teams Storage Management Architect Relationship Specialty Start Date End Date Zoë Nick, PROFESSIONAL BASS FISHER, C.N.P. PCP - General Family Medicine 11/19/17 11/29/[address] [phone] documented as of this encounter
--- OUTSIDE RECORDS SUMMARY | 2022-02-02 11:01 | XMS_ITS | Encounter Summary ---
:1980 Author Organization [facility] Address [address] [place] [address] Care Team Providers Name Role Phone Zoë Nick APRN, C.N.P. Primary Care Provider [phone] Reason for Referral Outpatient (Routine) - Closed Specialty Diagnoses / Procedures Referred By Contact Refer red To Contact Obstetrics and Diagnoses Vaginosis Bacterial Rebecca Mccullough APRN, [facility] C.N.P., M.S.N. [address], [place] [phone] Referral ID Status Reason Start Date Expiration Date Visits Requ ested Visits Authorized Closed 09/30/2019 09/29/2020 1 1 Encounter Details Date Type Department Care Team Description 09/30/2019 Orders Only Department of Rebecca Mccullough, Vaginosis Ba cterial Obstetrics and TIM, C.N.P., (Primary Dx) [facility]ne[facility] in [facility] [address] [place] [address] [facility] [phone] Social History Tobacco Use Types Packs/Day Years [...] do you attend restorationist or Never 2019 evangelical services? Do you [...] Schedule Diagnoses Obstetrics and Outpatient Referral Routine Vaginosis Bacterial Expected: Gynecology office 10/07/2019 visit (clinic) (Approximate) , Expires: 09/29/2022 documented as of this encounter Visit Diagnoses Diagnosis Vaginosis Bacterial - Primary documented in this encounter Additional Health Concerns Assessment Noted Time PHQ-9 Depression Total Score: 21 04/07/2019 8:00 PM CS T documented as of this encounter Care Teams Track Announcer Relationship Specialty Start Date End Date Zoë Nick, TIM, C.N.P. PCP - General Family Medicine 11/19/17 11/29/[address] [phone] documented as of this encounter
--- OUTSIDE RECORDS SUMMARY | 2022-02-02 11:01 | XMS_ITS | Encounter Summary ---
:1980 Author Organization [facility] Address [address] [place] [address] Care Team Providers Name Role Phone Zoë Nick APRN, C.NDallas Primary Care Provider [phone] Encounter Details Date Type Department Care Team Description 09/30/2019 Hospital Encounter Department of Hoda Horton tirebeca Therapy Laboratory Medicine K, ROVING INSPECTOR Bean Viner Not in [address] [place] [address] [place] [phone] Social History Tobacco Use Types Packs/Day [...] or relatives? How often do you attend voodoo or Never 2019 mandaen services? Do you belong to any clubs or No 01/29/2019 organizations such as voodoo groups, unions, fraternal or athletic groups, or [...] 6 (six) hours as needed for pain. [id number]-[id number]-[id number] Take 1 tablet by 0 ine (EXCEDRIN [...] 1200 mg pm (prescribed by psych) metroNIDAZOLE (FLAGYL) 500 Take 1 tablet (500 14 tablet 0 0 09/29/2019 10/16/2019 mg tabletIndications: mg total) by mouth Vaginosis Bacterial 2 (two) times a day for 7 days. Do not drink alcohol while taking this medicine. naltrexone (DEPADE) 50 mg Take 50 mg by 0 02/17/2020 tablet mouth daily. OLANZapine (ZyPREXA) 15 mg 0 0 02/17/2020 tablet propranolol (INDERAL) 10 mg Take 10 mg by 0 02/17/2020 tablet mouth as needed. For anxiety documented as of this encounter Plan of Treatment Not on filedocumented as of this encounter Procedures Procedure Name Priority Date/Time Associated Diagnosis Comme nts CBC WITHOUT Routine 09/30/2019 9:17 AM Medication Therapy Res ults for this DIFFERENTIAL, B CDT Bean Viner Not procedure a re in Anticoagulant the results section. AMMONIA Routine 09/30/2019 9:17 AM Results f or this CDT procedure are i n the results section. VALPROIC ACID Routine 09/30/2019 9:17 AM Medication Therapy Re sults for this LEVEL, TOT, S CDT [facility] Not procedure are in Anticoagulant the results section. documented in this encounter Results Ammonia (09/30/2019 9:17 AM CDT) P athologist Signature Ammonia, P 12 <=30 mcmol/L 10/01/2019 DTL 12:18 PM CDT Specimen Anatomical Collection Method Collection Time Receive d Time (Source) Location / / Volume Laterality Blood 09/30/2019 9:17 AM 0 CDT 10:56 AM CDT Soft Results Interface LAB BLOOD NON ADD-ON Performing Organization Address City/State/ZIP Code Phon e Number [facility] - [address] [place], [place] [address] [facility] [place] [address] Laboratories-[facility] [address] (ABNORMAL) Valproic Acid, Total (09/30/2019 9:17 AM CDT) P athologist Signature Valproic Acid, 41 (L) 50 - 125 09/30/2019 SUHAIL Tot, S mcg/mL 5:32 PM CDT Specimen Anatomical Collection Method Collection Time Receive d Time (Source) Location / / Volume Laterality Blood (Blood, 09/30/2019 9:17 AM 09/30/19 20 4:56 Venous) CDT PM CDT Hoda Horton ROVING INSPECTOR LAB BLOOD ADD-ON Performing Organization Address City/State/ZIP Code Phon e Number [facility] [place], [place] [address] [facility] [place] [address] SUHAIL [facility] [place] [address] [place] [facility] [place] [address] (ABNORMAL) CBC without Differential (09/30/2019 9:17 AM CDT) Patholo gist Method Time Signature Hemoglobin 13.8 11.6 - 09/30/2019 FB60 15.0 g/dL 9:32 AM CDT Hematocrit 41.4 35.5 - 09/30/2019 FB60 44.9 % 9:32 AM CDT Erythrocytes 4.43 3.92 - 09/30/2019 FB60 5.13 9:32 AM CDT x10(12)/L MCV 93.5 78.2 - 09/30/2019 FB60 97.9 fL 9:32 AM CDT RBC Distrib Width 13.5 12.2 - 09/30/2019 FB60 16.1 % 9:32 AM CDT Platelet Count 373 (H) 157 - 371 09/30/2019 FB60 x10(9)/L 9:32 AM CDT Leukocytes 10.2 (H) 3.4 - 9.6 09/30/2019 FB60 x10(9)/L 9:32 AM CDT Specimen Anatomical Collection Method Collection Time Receive d Time (Source) Location / / Volume Laterality Blood (Blood, 09/30/2019 9:17 AM 09/30/19 20 9:17 Venous) CDT AM CDT Hoda Horton ROVING INSPECTOR LAB BLOOD ADD-ON Performing Organization Address City/State/ZIP Code Phon e Number [facility] [address] [place] [address] [facility] [address] [place] [address] System in [place] [address] documented in this encounter Visit Diagnoses Diagnosis Medication Therapy Bean Viner Not Anticoa gulant documented in this encounter Additional Health Concerns Assessment Noted Time PHQ-9 Depression Total Score: 04/07/2019 8:00 PM CS T documented as of this encounter Care Teams Trimmer Machine Operator Relationship Specialty Start Date End Date Zoë Nick, TIM, C.N.P. PCP - General Family Medicine 11/19/17 11/29/20 [address] [phone] documented as of this encounter
--- OUTSIDE RECORDS SUMMARY | 2022-02-02 11:02 | XMS_ITS | Encounter Summary ---
:1980 Author Organization [facility] Address [address] [place] [address] Care Team Providers Name Role Phone Zoë Nick APRN, C.NDallas Primary Care Provider [phone] Encounter Details Date Type Department Care Team Description 04/09/2019 Hospital Encounter Department of [facility]oda Horton tirebeca Therapy Laboratory Medicine K, PASSENGER SERVICE REPRESENTATIVE Retirement Not in [address] [place] [address] [place] [id number] Social History Tobacco Use Types Packs/Day Years Used Date Smoking Tobacco: Every Day Cigarettes 1 Smokeless Tobacco: Never Snuff Alcohol Use Standard Drinks/Week Comments Yes 0 (1 standard drink = 0.6 oz [...] or relatives? How often do you attend confucianism or Never 2019 confucianism services? Do you belong to any clubs or No 01/29/2019 organizations such as confucianism groups, unions, fraternal or athletic groups, or [...] Sig Dispensed Refills Start Date End Date acetaminophen (TYLENOL) Take by mouth every 6 0 500 mg capsule (six) hours as needed for pain. khfckyx-thgsubinxhyjn-iv Take 1 tablet by 0 ffeine (EXCEDRIN mouth every 6 (six) MIGRAINE) 250-250-65 mg hours as needed for per tablet pain. bismuth subsalicylate Take 30 mL by mouth 0 (PEPTO BISMOL) 262 mg/15 every 6 (six) hours mL suspension as needed for indigestion. cetirizine (for_ZyrTEC) Take 10 mg by mouth 0 10 mg tablet daily as needed. clindamycin (for_CLEOCIN Apply 1 application 0 T) 1 % lotion topically 2 (two) times a day as needed. For hidradenitis suppurativa docusate sodium (COLACE) Take 100 mg by mouth 0 100 mg capsule 2 (two) times a day as needed. gabapentin (NEURONTIN) Take 300 mg by mouth 0 300 mg capsule 3 (three) times a day. levonorgestrel (MIRENA) 1 each by 0 20 mcg/24 hr (5 years) intrauterine route IUD once. Place 06/01/2017 to be removed in 5 years lidocaine (LMX) 4 % Apply 1 application 0 cream topically 4 (four) times a day as needed for pain. For knee pain melatonin 3 mg tablet Take 3 mg by mouth at 0 bedtime. multivitamin capsule Take 1 capsule by 0 mouth daily. diphenhydrAMINE Take 25 mg by mouth 0 09/01/2019 (BENADRYL) 50 mg capsule every 4 (four) hours. fluconazole (DIFLUCAN) TAKE ONE TABLET BY 0 02/0109/01/2019 150 mg tablet MOUTH EVERY 3RD DAY NEEDED folic acid 1 mg tablet Take 1 mg by mouth 0 09/01/2019 daily. ibuprofen (ADVIL,MOTRIN) Take 600 mg by mouth 0 02/17/2020 200 mg capsule every 6 (six) hours as needed for pain. lamoTRIgine Take 200 mg by mouth 0 04/2019 (for_LaMICtal) 200 mg 2 (two) times a day. tablet lithium carbonate 300 mg Take 300 mg by mouth 0 02/17/2020 tablet 2 (two) times a day. 300 mg am and 1200 mg pm (prescribed by psych) naltrexone (DEPADE) 50 Take 50 mg by mouth 0 02/17/2020 mg tablet daily. OLANZapine (ZyPREXA) 10 Take 10 mg by mouth 1 09/01/2019 mg tablet daily. pantoprazole (PROTONIX) Take 1 tablet (40 mg 90 tablet 3 09/01/2019 40 mg EC total) by mouth every tabletIndications: morning before Reflux Esophageal breakfast. propranolol (INDERAL) 10 Take 10 mg by mouth 0 02/17/2020 mg tablet as needed. For anxiety rizatriptan (MAXALT) 10 Take 10 mg by mouth. 0 09/01/2019 mg tablet sennosides (senna) 8.6 Take 8.6 mg by mouth 0 09/01/2019 mg tablet daily. thiamine (vitamin B-1) Take 100 mg by mouth 0 09/01/2019 100 mg tablet daily. documented as of this encounter Plan of Treatment Not on filedocumented as of this encounter Procedures Procedure Name Priority Date/Time Associated Diagnosis Comme nts GLUCOSE, FASTING, Routine 04/09/2019 8:47 AM Medication Therap y Results for this S/P EDUCATION PROGRAM SPECIALIST Retirement Not procedure are in Anticoagulant the results section. LIPID PANEL, S Routine 04/09/2019 8:46 AM Medication Therapy R esults for this EDUCATION PROGRAM SPECIALIST Retirement Not procedure are in Anticoagulant the results section. THYROID FUNCTION Routine 04/09/2019 8:46 AM Medication Therapy Results for this CASCADE, S EDUCATION PROGRAM SPECIALIST Retirement Not procedure are in Anticoagulant the results section. 25-HYDROXYVITAMIN Routine 04/09/2019 8:46 AM Medication Therap y Results for this D2 AND D3, S EDUCATION PROGRAM SPECIALIST Flight Test Data Acquisition Technician Not procedure are in Anticoagulant the results section. BUN (BLOOD UREA Routine 04/09/2019 8:46 AM Medication Therapy Results for this NITROGEN), S/P EDUCATION PROGRAM SPECIALIST Flight Test Data Acquisition Technician Not procedure ar e in Anticoagulant the results section. CREATININE WITH Routine 04/09/2019 8:46 AM Medication Therapy Results for this EGFR, S/P EDUCATION PROGRAM SPECIALIST Retirement Not procedure are in Anticoagulant the results section. LITHIUM LEVEL, S Routine 04/09/2019 8:46 AM Medication Therapy Results for this EDUCATION PROGRAM SPECIALIST Flight Test Data Acquisition Technician Not procedure are in Anticoagulant the results section. documented in this encounter Results (ABNORMAL) Glucose, Fasting (04/09/2019 8:47 AM EDUCATION PROGRAM SPECIALIST) athologist Signature Glucose, P 103 (H) 70 - 100 04/09/2019 OWAT mg/dL 11:07 AM EDUCATION PROGRAM SPECIALIST Last Intake 13 hr 04/09/2019 OWAT 10:30 AM EDUCATION PROGRAM SPECIALIST Specimen Anatomical Collection Method Collection Time Receive d Time (Source) Location / / Volume Laterality Blood (Blood, 04/09/2019 8:47 AM 04/09/19 20 Venous) EDUCATION PROGRAM SPECIALIST 10:30 AM EDUCATION PROGRAM SPECIALIST Hoda Horton PASSENGER SERVICE REPRESENTATIVE LAB BLOOD NON ADD-ON Performing Organization Address City/State/ZIP Code Phon e Number [facility] [address] [place] [address] [place] [address] System in [place] [address] (ABNORMAL) Lipid Panel (04/09/2019 8:46 AM EDUCATION PROGRAM SPECIALIST) athologist Signature Cholesterol, 180 mg/dL 04/09/2019 OW[place] Total 12:10 PM EDUCATION PROGRAM SPECIALIST Comment: ----REFERENCE VALUE---- Desirable: < 200 Borderline high: 200 - 239 High: > or = 240 Triglycerides 355 (H) mg/dL 04/09/2019 12:10 PM EDUCATION PROGRAM SPECIALIST OW AT Comment: ----REFERENCE VALUE---- Normal: <150 Borderline high: 150-199 High: 200-499 Very high: > or =500 Cholesterol, HDL, S 36 (L) >=50 mg/dL 04/09/2019 12:10 PM EDUCATION PROGRAM SPECIALIST [place] Calculated LDL 73 mg/dL 04/09/2019 12:10 PM EDUCATION PROGRAM SPECIALIST O CORY Comment: ----REFERENCE VALUE---- Desirable: <100 Above Desirable: 100-129 Borderline high: 130-159 High: 160-189 Very high: > or =190 Cholesterol, Non-HDL, Calculated 144 mg/dL 020 12:10 PM EDUCATION PROGRAM SPECIALIST [place] Comment: ----REFERENCE VALUE---- Desirable: <130 Above Desirable: 130-159 Borderline high: 160-189 High: 190-219 Very high: > or =220 Specimen Anatomical Collection Method Collection Time Receive d Time (Source) Location / / Volume Laterality Blood (Blood, 04/09/2019 8:46 AM 04/09/19 Venous) EDUCATION PROGRAM SPECIALIST 10:31 AM EDUCATION PROGRAM SPECIALIST Hoda Horton PASSENGER SERVICE REPRESENTATIVE LAB BLOOD ADD-ON Performing Organization Address City/State/ZIP Code Phon e Number [facility]- [address] [facility] [place] [address] [place] [facility] [place] [address] System in [place] [address] Thyroid Function [place] (04/09/2019 8:46 AM EDUCATION PROGRAM SPECIALIST) P athologist Signature TSH, Sensitive 3.8 0.3 - 4.2 04/09/2019 [place] mIU/L 11:38 AM EDUCATION PROGRAM SPECIALIST Comment: Biotin has been identified by the prema mcguire as a potential interfering substance. ??Higher concentr ations of biotin may be found in multivitamins, hair/nail supple ments, and workout supplements. ??If the result does not [facility] clinical observations, repeat testing after patient refrains fr om the use of supplements for at least 12 hours. Specimen Anatomical Collection Method Collection Time Receive d Time (Source) Location / / Volume Laterality Blood (Blood, 04/09/2019 8:46 AM 04/09/19 Venous) EDUCATION PROGRAM SPECIALIST 10:31 AM EDUCATION PROGRAM SPECIALIST Hoda Horton PASSENGER SERVICE REPRESENTATIVE LAB BLOOD ADD-ON Performing Organization Address City/[facility]/ZIP Code Phon e Number [facility]- [address] [place] [address] [place] [address] [place] [facility] [place] [address] System in [place] [address] BUN (Blood Urea Nitrogen) (04/09/2019 8:46 AM EDUCATION PROGRAM SPECIALIST) P athologist Signature BUN (Blood Urea 8 6 - 21 04/09/2019 OW[place] Nitrogen), S mg/dL 12:10 PM EDUCATION PROGRAM SPECIALIST Specimen Anatomical Collection Method Collection Time Receive d Time (Source) Location / / Volume Laterality Blood (Blood, 04/09/2019 8:46 AM 04/09/19 Venous) EDUCATION PROGRAM SPECIALIST 10:31 AM EDUCATION PROGRAM SPECIALIST Hoda Horton PASSENGER SERVICE REPRESENTATIVE LAB BLOOD ADD-ON Performing Organization Address City/State/ZIP Code Phon e Number [facility]- [address] [place] [facility] [place] [address] [place] [address] System in [place] [address] Creatinine with Estimated GFR (04/09/2019 8:46 AM EDUCATION PROGRAM SPECIALIST) athologist Signature Creatinine 0.76 0.59 - 04/09/2019 OW[place] 1.04 mg/dL 12:10 PM EDUCATION PROGRAM SPECIALIST eGFR-Non >90 >=60 04/09/2019 OW[place] Black/ mL/min/BSA 12:10 PM EDUCATION PROGRAM SPECIALIST [place] Comment: ----ADDITIONAL INFORMATION---- Estimated GFR calculated using the 2009 CKD_EPI creatinine equation. eGFR-Black/ >90 >=60 mL/min/BSA 2019 12:10 PM EDUCATION PROGRAM SPECIALIST [place] Comment: ----ADDITIONAL INFORMATION---- Estimated GFR calculated using the 2009 CKD_EPI creatinine equation. Specimen Anatomical Collection Method Collection Time Receive d Time (Source) Location / / Volume Laterality Blood (Blood, 04/09/2019 8:46 AM 04/09/19 Venous) EDUCATION PROGRAM SPECIALIST 10:31 AM EDUCATION PROGRAM SPECIALIST Hoda Horton PASSENGER SERVICE REPRESENTATIVE LAB BLOOD ADD-ON Performing Organization Address City/[facility]/ZIP Code Phon e Number [facility]- [address] [facility] [place] [address] [place] [address] System in [place] [address] (ABNORMAL) [place] Level (04/09/2019 8:46 AM EDUCATION PROGRAM SPECIALIST) athologist Signature [place], S 1.3 (H) 0.5 - 1.2 04/09/2019 AUST mmol/L 4:29 PM EDUCATION PROGRAM SPECIALIST Specimen Anatomical Collection Method Collection Time Receive d Time (Source) Location / / Volume Laterality Blood (Blood, 04/09/2019 8:46 AM 04/09/19 4:04 Venous) EDUCATION PROGRAM SPECIALIST PM EDUCATION PROGRAM SPECIALIST Hoda Nolanden PASSENGER SERVICE REPRESENTATIVE LAB BLOOD ADD-ON Performing Organization Address City/State/ZIP Code Phon e Number [facility]- [address] [place] [address] [facility] [place] [address] [facility] [address] 25-Hydroxyvitamin D2 and D3 (04/09/2019 8:46 AM EDUCATION PROGRAM SPECIALIST) P athologist Signature 25-Hydroxy D2 <4.0 ng/mL 04/11/2019 SDSC 12:08 PM EDUCATION PROGRAM SPECIALIST 25-Hydroxy D3 39 ng/mL 04/11/2019 SDSC 12:08 PM EDUCATION PROGRAM SPECIALIST 25-Hydroxy D 39 ng/mL 04/11/2019 SDS Total 12:08 PM EDUCATION PROGRAM SPECIALIST Comment: ----REFERENCE VALUE---- 25-HYDROXY D TOTAL (D2+D3) Optimum level s in the healthy population are 20-50, patients with bone disease may benefit from higher levels within this r julien. ----ADDITIONAL INFORMATION---- This test was developed and its performa nce characteristics determined by [facility] in a manner consistent with CLIA requirements. This test has not been cleared or approved by the [place] d and Drug Administration. Specimen Anatomical Collection Method Collection Time Receive d Time (Source) Location / / Volume Laterality Blood (Blood, 04/09/2019 8:46 AM 04/10/19 20 8:13 Venous) EDUCATION PROGRAM SPECIALIST AM EDUCATION PROGRAM SPECIALIST Hoda Horton PASSENGER SERVICE REPRESENTATIVE LAB BLOOD ADD-ON Performing Organization Address City/State/ZIP Code Phon e Number [facility] [address] [place], [place] [address] [facility] [place] [address] Laboratory Medicine and Pathology [address] [place] documented in this encounter Visit Diagnoses Diagnosis Medication Therapy Flight Test Data Acquisition Technician Not Anticoa gulant documented in this encounter Additional Health Concerns Assessment Noted Time PHQ-9 Depression Total Score: 21 04/07/2019 8:00 PM CS T documented as of this encounter Care Teams Graphics Edit Technician Relationship Specialty Start Date End Date Zoë Nick, TIM, C.N.P. PCP - General Family Medicine 11/19/17 11/29/20 [address], [place] [phone] documented as of this encounter
--- OUTSIDE RECORDS SUMMARY | 2022-02-02 11:02 | XMS_ITS | Encounter Summary ---
:[address] [facility] Address [address] [place] [address] Care Team Providers Name Role Phone Zoë Nick APRN C.N.P. Primary Care Provider Reason for Visit Reason Comments Other lump on face Appointment Request (Routine) - Closed Specialty Diagnoses / Procedures Referred By Contact Refer red To Contact Family Medicine Diagnoses PAR REVIEW [facility] Procedures FAM EST Referral ID Status Reason Start Date Expiration Date Visits Requ ested Visits Authorized [id number] Closed 06/10/2018 06/10/2019 1 1 Encounter Details Date Type Department Care Team Description 06/12/2018 Office Visit Department of [facility] Patricia Hill Nic otine Dependence Cigarettes With Other Nicotine Induced Disorder (Primary Dx); [facility] [place] Melody Obesity Body Mass Index 30-39.9 Adult; Clinic, in [place] [address] Alcohol Moderate Or Severe Use Disorder (Dependence) Uncomplicated ([facility]); [place], [place] Acne; [address] [address] Abscess Face; [place], [place] [phone] Gastric Ulcer Unspecified As Acute Or Chronic Without Hemorrhage Or Perforation; [phone] (Work) Arthritis Rheumatoid (HCC) [phone] Social History Tobacco Use Types Packs/Day Years [...] do you attend hindu or Never 2019 anglican services? Do you belong to any clubs [...] Sign Reading Time Taken Comments Blood Pressure 138/80 06/12/2018 8:56 AM CDT Pulse 80 06/12/2018 8:56 AM CDT Temperature 36.7 ??C (98.1 ??F) 06/12/2018 8:56 AM CDT Respiratory Rate 16 06/12/2018 8:56 AM CDT Oxygen Saturation - - Inhaled Oxygen Concentration - - Weight 98.9 kg (218 lb 2.3 oz) 06/12/2018 8:56 AM CDT Height - - Body Mass Index 35.27 02/13/2018 9:54 AM PERFORMING ARTS TECHNICIANS documented in this encounter Progress Notes Patricia Hill M.D. - 06/12/2018 9:00 AM CDT CHIEF COMPLAINT/REASON FOR VISIT Cyst on cheek HISTORY OF PRESENT ILLNESS This 38-year old female presents to clinic secondary to a cyst on her left cheek. She has tried to squeeze the area of concern and had a bloody purulent discharge a mid from the area of concern. She did have severe acne when she was younger in periodically will have flares. She is planning a holiday to [place] in the near future and would like to have this skin problem totally resolved prior to her trip. She continues to smoke. She is taking her other medications as prescribed. She continues to havesome GI distress. She had upper endoscopy fall. She continues to have couple of glasses of wine each day. EMR reviewed. CURRENT MEDICATIONS Current Outpatient Prescriptions: ??? cetirizine (for_ZyrTEC) 10 mg tablet, Take 10 mg by mouth daily as needed., Disp: , Rfl: ??? clindamycin (for_CLEOCIN T) 1 % lotion, Apply 1 application topically 2 (two) times a day as needed., Disp: , Rfl: ??? lamoTRIgine (for_LaMICtal) 200 mg tablet, Take 200 mg by mouth 2 (two) times a day. , Disp: , Rfl: ??? levonorgestrel (MIRENA) 20 mcg/24 hr (5 years) IUD, 1 each by intrauterine route once. Place 06/01/2017 to be removed in 5 years, Disp: , Rfl: ??? lithium carbonate (LITHOBID) 300 mg ER tablet, Take 1,200 mg by mouth at bedtime., Disp: , Rfl: 0 ??? OLANZapine (ZyPREXA) 10 mg tablet, Take 10 mg by mouth daily., Disp: , Rfl: 1 ??? pantoprazole (PROTONIX) 40 mg EC tablet, Take 1 tablet (40 mg total) by mouth every morning before breakfast., Disp: 90 tablet, Rfl: 3 ??? propranolol (INDERAL) 10 mg tablet, , Disp: , Rfl: 0 ??? rizatriptan (MAXALT) 10 mg tablet, Take 10 mg by mouth., Disp: , Rfl: ??? traZODone (DESYREL) 50 mg tablet, Take 1 tablet (50 mg total) by mouth at bedtime as needed for sleep., Disp: 90 tablet, Rfl: 1 ??? alum-mag hydroxide-simeth 225-200-25 mg/5 mL suspension, Take 30 mL by mouth., Disp: , Rfl: ??? minocycline (MINOCIN,DYNACIN) 100 mg capsule, Take 1 capsule (100 mg total) by mouth 2 (two) times a day for 10 days., Disp: 20 capsule, Rfl: 0 Allergies Allergen Reactions ??? Eszopiclone Nausea And Vomiting ??? Latex Other (see comments) ??? Morphine GI intolerance ??? Naproxen Sodium Other (see comments) ??? Piroxicam Rash REVIEW OF SYSTEMS Negative review of major organ systems apart from that noted in the HPI and past medical surgical history. Past Medical History: Diagnosis Date ??? Abuse Tobacco Smoking ??? Allergy Seasonal ??? Arthritis Rheumatoid (HCC) ??? Bipolar I Disorder (HCC) ??? Disturbance Sleep 12/18/2017 ??? Fibromyalgia ??? Hidradenitis Suppurativa ??? Migraine Headache ??? Persistent Depressive Disorder ??? Posttraumatic Stress Disorder Prolonged ??? Raynaud's Disease ??? Reflux Esophageal Past Surgical History: Procedure Laterality Date ??? ARTHRODESIS OF ANKLE N/A 2001 Ankle fusion ??? DILATION AND CURETTAGE ??? REPAIR OF UMBILICAL HERNIA N/A Repair of umbilical hernia ??? VAGINAL DELIVERY ??? VAGINAL DELIVERY ??? VAGINAL DELIVERY PREVENTIVE SERVICES Tobacco a pack per day with no significant plans for cessation Mammogram nonapplicable secondary to stated age Pap smear 09/02/2015 Colon screen nonapplicable secondary to stated age but may need to be considered given her health history, upper endoscopy fall with peptic ulcer disease noted Lipids 04/17/2018, elevated Tdap 11/03/2008 Pneumovax 12/01/2012 Influenza 12/18/2017 SOCIAL HISTORY Alcohol 1-2 glasses a wine each day Caffeine 4 cups of coffee each day with soda once per week and tea once per week Family History Problem Relation Age of Onset ??? Breast cancer Mother ??? Thyroid cancer Father ??? Rheum arthritis Grandmother ??? Fibromyalgia Sister Vitals: 06/12/18 0856 BP: 138/80 Patient Position: Sitting Pulse: 80 Temp: 36.7 ??C Resp: 16 Weight: 98.9 kg TempSrc: Temporal PHYSICAL EXAM General: Neatly dressed well groomed. Skin: Acne scars on the face with a nearly 1 cm purulent cystic structure on the middle of her left cheek. There is some purulent drainage from the os. HEENT: PERRL. EOMs are full. Ears: TMs are rodriguez, good visualization of landmarks. Nose: Mucosal membranes pink and moist. Oral: No exudates. Teeth in fair condition. No pharyngeal erythema. Neck: Rangeof motion consistent with patient's stated age body habitus. Trachea midline. Lymph nodes: No cervical adenopathy. Thyroid: No thyroid masses, tenderness or enlargement. Heart: Regular rate and rhythm. No clicks, rubs or murmurs. Lungs: Clear to auscultation. No palpable chest wall masses. ASSESSMENT/PLAN 1. Acne with abscess on the left face 2. Nicotine dependence with nicotine induced disorder 3. Alcohol moderate to severe use currently uncomplicated apart from her continued GI distress 4. Obesity-progressive 5. Rheumatoid arthritis on multiple medications followed by Rheumatology 6. History of gastric ulcer without hemorrhage or perforation aggravated but her lifestyle Supportive measures discussed in detail. Will add minocycline to her medication regimen. New Rx given. Arrange for follow-up dermatology appointment is scheduled 06/17/2018 at 8:[address] Ngo at the [facility]. Advised smoking cessation secondary to her multiple health issues. Spent additional 3 min discussing this in detail. Encourage cutting back on her alcohol as this is aggravating all of her health issues as well. Risks and benefits of medications discussed. All questions answered. Signs and symptoms to lead to emergent evaluation are reviewed. See the medication reconciliation and preventive services. She will consider her options. documented in this encounter Miscellaneous Notes Letter - Patricia Hill M.D. - 06/12/2018 9:00 AM CDT June 14, 2018 [facility] DERMAT[facility]Y [address] [place] [id number] RE: MARLIN PINEDA #: [id number] : [address] Ngo: This letter is in regards to Marlin Plummer, a 38-year-old female who will be seeing you 06/17/2018 at 8:15 a.m. secondary to a large pustule related to her acne on her left cheek. She was given a prescription for minocycline. She is planning a holiday to [place] and more aggressive treatment of this area of concern was advised to be considered. Her current medication regimen includes: Zyrtec 10 mg daily as needed, episodic clindamycin lotion, Lamotrigine 200 mg twice per day, Mirena IUD, Lithobid 300- mg tablets utilizing 4 at bedtime, Zxapadm25 mg daily, pantoprazole 40 mg daily, propranolol 10 mg daily, rizatriptan 10 mg daily as needed, trazodone 50 mg at bedtime, and minocycline as noted above. Her allergies include eszopiclone, latex, morphine, naproxen, and piroxicam. She continues to smoke and has limited plans for cessation. She drinks a couple of glasses of wine each day. She drinks 4 cups of coffee each day with occasional soda and tea each week. She is status post ankle fusion, D and C, umbilical hernia repair, and 3 vaginal deliveries. She has a history of bipolar disorder, which has been fairly stable, rheumatoid arthritis fairly stable, fibromyalgia, hidradenitis suppurativa, migraines, posttraumatic stress disorder superimposed onmajor depression, Raynaud's, and GERD, which resulted in a gastric ulcer confirmed on an upper endoscopy fall. Family history is pertinent for a mother with breast cancer, father with thyroid cancer, her grandmother has rheumatoid arthritis, and she has a sister with fibromyalgia. Thank you for your care in regards to this patient. If you have any questions, please contact our office. Sincerely, Patricia Hill M.D. Department of Family Medicine Job ID: [id number] documented in this encounter Plan of Treatment Not on filedocumented as of this encounter Visit Diagnoses Diagnosis Nicotine Dependence Cigarettes With Othe r Nicotine Induced Disorder - Primary Obesity Body Mass Index 30-39.9 Adult Alcohol Moderate Or Severe Use Disorder (Dependence) Uncomplicated (HCC) Acne Abscess Face Gastric Ulcer Unspecified As Acute Or Ch ronic Without Hemorrhage Or Perforation Arthritis Rheumatoid (HCC) documented in this encounter Additional Health Concerns Assessment Noted Time PHQ-9 Depression Total Score: 6 04/03/2017 9:36 AM PERFORMING ARTS TECHNICIANS documented as of this encounter Care Teams Time Checker Relationship Specialty Start Date End Date Zoë Nick, TIM, C.N.P. PCP - General Family Medicine 11/19/17 11/29/20 [address] [place] [id number] documented as of this encounter
--- OUTSIDE RECORDS SUMMARY | 2022-02-02 11:02 | XMS_ITS | Encounter Summary ---
:1980 Author Organization [facility] Address [address] [place] [address] Care Team Providers Name Role Phone Zoë Nick APRN, C.N.P. Primary Care Provider [phone] Reason for Referral Outpatient (Routine) - Closed Specialty Diagnoses / Procedures Referred By Contact Refer red To Contact Obstetrics and Diagnoses Bartholin's Gland Cyst Zoë Nick, [facility] Gynecology TIM, C.N.P. [address] [place] [address] Referral ID Status Reason Start Date Expiration Date Visits Requ ested Visits Authorized [id number] Closed 04/28/2019 04/27/2020 1 1 TURNER Reason for Visit Reason Comments Cyst had for a long time was kayleigh alex last December growing again Hyperlipidemia were high at psych. doctors- 355 was the level Appointment Request (Routine) - Closed Specialty Diagnoses / Procedures Referred By Contact Refer red To Contact Family Medicine Referral ID Status Reason Start Date Expiration Date Visits Requ ested Visits Authorized [id number] Closed 04/21/2019 04/20/2020 1 1 Encounter Details Date Type Department Care Team Description 04/28/2019 Office Visit Department of Family Zoë Nick Bar tholin's Gland Cyst (Primary Dx); Medicine, [place] TIM, C.N.P. Hypertriglyceridemia; Clinic, in [place], [address] Arthritis Rheumatoid ([facility]); [facility], [place] Borderline Personality Disor amarilis ([facility]); [address] [phone] Moderate Or Severe Use Disorder (Depende nce) Alcohol Remission ([facility]); FRANTZ WANG [phone] General Medica l Examination Adult; [id number] (Work) Pap Smear Examination [phone] Social History Tobacco Use Types Packs/Day Years Used Date Smoking Tobacco: Every Day Cigarettes 1 Smokeless Tobacco: Never Snuff Tobacco Cessation: Ready to Quit: No; Co unseling Given: No Alcohol Use Standard Drinks/Week Comments Yes 0 [...] do you attend jewish or Never 2019 buddhist services? Do you [...] for the very basics like Not jaden ly hard 10/24/2019 food, housing, medical care, and [...] Sign Reading Time Taken Comments Blood Pressure 122/80 04/28/2019 12:50 PM BAR TURNER Pulse 70 04/28/2019 12:50 PM BAR TURNER Temperature 36.1 ??C (97 ??F) 04/28/2019 12:50 PM BAR TURNER Respiratory Rate 18 04/28/2019 12:50 PM BAR TURNER Oxygen Saturation - - Inhaled Oxygen Concentration - - Weight 85.6 kg (188 lb 11.4 oz) 04/28/2019 12:50 PM BAR TURNER Height - - Body Mass Index 30.46 01/29/2019 12:53 PM CDT documented in this encounter Patient Instructions AttachmentsThe following attachments cannot be sent through Care Everywhere. Lowering High Cholesterol Through Diet ([facility])documented in this encounter Progress Notes Myrom, Zoë J, TIM, C.N.P. - 04/28/2019 1:00 PM CST SUBJECTIVE CHIEF COMPLAINT: Chief Complaint Patient presents with ??? Cyst had for a long time was drained last December growing again ??? Hyperlipidemia were high at psych. doctors- 355 was the level HISTORY OF PRESENT ILLNESS: Marlin states she has recurrence of infected Bartholin's cyst. She had it drained last December in urgent care. Excision was discussed at that time but she opted for watchful waiting. Now she is ready to have it treated definitively. She recently had lipids checked by her psychiatrist, she is on olanzapine for borderline personality disorder, triglycerides were elevated at 355. We discussed starting medication to treat as well as working on diet and exercise with weight loss. Rheumatoid arthritis hasbeen stable without biologics. She continues outpatient treatment for alcohol abuse. She has been sober for 4 months. She is due for Pap smear. REVIEW OF SYSTEMS: The following systems were negative: Constitutional, Skin, Eyes, ENT, CV, Respiratory, GI, , Hematologic, Musculoskeletal, Neuro, Psych A 10 system review of constitutional, cardiovascular, [...] needed for pain., Disp: , Rfl: ??? ikvreju-dztcxzcglphmb-xgjwynpd (EXCEDRIN MIGRAINE) 250-250-65 mg per tablet, Take [...] 4 (four) hours., Disp: , Rfl: ??? docusate sodium (COLACE) [...] times a day., Disp: , Rfl: ??? ibuprofen (ADVIL,MOTRIN) 200 [...] by mouth daily., Disp: , Rfl: ??? cephalexin (KEFLEX) 500 mg capsule, Take 1 capsule (500 mg total) by mouth 4 (four) times a day for 10 days., Disp: 40 capsule, Rfl: 0 ??? gemfibrozil (LOPID) 600 mg tablet, Take 1 tablet (600 mg total) by mouth 2 (two) times a day., Disp: 180 tablet, Rfl: 3 OBJECTIVE VITAL SIGNS: Temperature: [36.1 ??C] 36.1 ??C Resp Rate: [18] 18 Blood Pressure: (122)/(80) 122/80 Pulse Rate: [70] 70 PHYSICAL EXAM: General: In general, the patient [...] Soft, nontender, no palpable mass, no hepatosplenomegaly. Genitourinary: Infected bartholin gland cyst. Extremities: Warm, dry, no cyanosis or peripheral edema. Mental Status: Alert and oriented times three. Neurologic: Deep tendon reflexes are +2 and symmetrical. ASSESSMENT /PLAN: #1 Bartholin's Gland Cyst Cephalexin 500 mg, 1 capsule 4 times daily for 10 days. Warm tub soaks. Scheduling consult with Gynecology for excision. #2 Hypertriglyceridemia Gemfibrozil 600 mg, 1 twice daily. She was given a patient Education handout on lowering triglycerides with diet. Encouraged to work on exercise and weight loss. Recheck fasting lipids and AST in 2 months. #3 Arthritis Rheumatoid (HCC) Stable without biologics. Continue monitoring. #4 Borderline Personality Disorder (HCC) Continue to follow with psychiatry for medication management. #5 Moderate Or Severe Use Disorder (Dependence) Alcohol Remission (HCC) Sober x4 months. Continue outpatient treatment 3 times weekly. HEALTH MAINTENANCE: She will schedule for Pap smear. TURNER documented in this encounter Plan of Treatment Scheduled Referrals Name Type Priority Associated Order Schedule Diagnoses Obstetrics and Outpatient Referral Routine Bartholin's Gland E xpected: Gynecology - Cyst 04/28/2019 Gynecology consult (Approxim ate), (clinic) Expires: 04/28/2022 documented as of this encounter Visit Diagnoses Diagnosis Bartholin's Gland Cyst - Primary Hypertriglyceridemia Arthritis Rheumatoid (HCC) Borderline Personality Disorder (HCC) Moderate Or Severe Use Disorder (Depende nce) Alcohol Remission (HCC) General Medical Examination Adult Pap Smear Examination documented in this encounter Additional Health Concerns Assessment Noted Time PHQ-9 Depression Total Score: 21 04/07/2019 8:00 PM CS T documented as of this encounter Care Teams Director Marketing Relationship Specialty Start Date End Date Zoë Nick APRN, C.N.P. PCP - General Family Medicine 11/19/17 11/29/20 [address] [place] [phone] documented as of this encounter
--- OUTSIDE RECORDS SUMMARY | 2022-02-02 11:02 | XMS_ITS | Encounter Summary ---
:1980 Author Organization [facility] Address [address] [place] [address] Care Team Providers Name Role Phone Zoë Nick APRN, C.N.P. Primary Care Provider [phone] Reason for Visit Reason Comments Vaginal Discharge Appointment Request (Routine) - Closed Specialty Diagnoses / Procedures Referred By Contact Refer red To Contact Obstetrics and Gynecology Referral ID Status Reason Start Date Expiration Date Visits Requ ested Visits Authorized [id number] Closed 12/26/2018 12/26/2019 1 1 Encounter Details Date Type Department Care Team Description 12/26/2018 Office Visit Department of Yi Kaye Vaginitis (Primary Dx); Obstetrics and JTIM, C.N.P. Bartholin's Gland Cyst Gynecology in [address] [place], [place] [address] [facility] [address] [place], [place] [phone] (Work) [phone] Social History Tobacco Use Types Packs/Day Years [...] do you attend holiness or Never 2019 sikhism services? Do you belong to any clubs [...] Sign Reading Time Taken Comments Blood Pressure 126/86 12/26/2018 11:08 AM CDT Pulse 82 12/26/2018 11:08 AM CDT Temperature - - Respiratory Rate - - Oxygen Saturation - - Inhaled Oxygen Concentration - - Weight 95.2 kg (209 lb 14.1 oz) 12/26/2018 11:08 AM CDT Height - - Body Mass Index 33.93 02/13/2018 9:54 AM ROCK SPLITTER documented in this encounter Progress Notes Yi Kaye, TIM, C.N.P. - 12/26/2018 11:15 AM CDT CHIEF COMPLAINT/REASON FOR VISIT Chief Complaint Patient presents with ??? Vaginal Discharge HISTORY OF PRESENT ILLNESS Marlin is a 38 year old, para 1-2-1-3 female who is currently using Mirena IUD for contraception. She is very pleased with this method. She notes this is her 3rd Mirena IUD. She has a few concerns forme today. First, she has noticed that her Bartholin's gland cyst has increased in size. It is beginning to bother her on occasion. She denies any fevers, chills, or body aches. No drainage from the site. It is not painful to the touch, but causes irritation at times. When I saw her last on 06/06/2017 she did have a pea-sized lymph gland cyst on her right side. It was not bothering her at that point so we chose to proceed with observation. She is here today to have me recheck that. She also notes that she has been experiencing some vaginal discharge an odor recently. She does havehistory of both bacterial vaginosis and yeast infections, and she notes that her current symptoms are most similar to what she typically experiences when she has bacterial vaginosis. She has been experiencing some difficult social situations recently. She was recently fired from [employer] due to her alcoholism. She put herself into detox, and just got out of detox today. She does feel motivated to quit drinking, and therefore is planning to enter rehabilitation in the near future. She has several applications in place. She is hoping to start rehab within the next week or 2. MEDICATIONS Current Outpatient Medications Medication Sig Dispense Refill ??? alum-mag hydroxide-simeth 225-200-25 mg/5 mL suspension Take 30 mL by mouth. ??? cetirizine (for_ZyrTEC) 10 mg tablet Take 10 mg by mouth daily as needed. ??? clindamycin (for_CLEOCIN T) 1 % lotion Apply 1 application topically 2 (two) times a day as needed. ??? fluconazole (DIFLUCAN) 150 mg tablet Take 1 tablet (150 mg total) by mouth every third day. Repeat in 3 days if symptoms persist. 2 tablet 0 ??? lamoTRIgine (for_LaMICtal) 200 mg tablet Take 200 mg by mouth 2 (two) times a day. ??? levonorgestrel (MIRENA) 20 mcg/24 hr (5 years) IUD 1 each by intrauterine route once. Place 06/01/2017 to be removed in 5 years ??? lithium carbonate (LITHOBID) 300 mg ER tablet Take 1,200 mg by mouth at bedtime. 0 ??? metroNIDAZOLE (METROGEL) 0.75 % vaginal gel Insert 1 applicator into the vagina daily for 5 days. 70 g 0 ??? OLANZapine (ZyPREXA) 10 mg tablet Take 10 mg by mouth daily. 1 ??? pantoprazole (PROTONIX) 40 mg EC tablet Take 1 tablet (40 mg total) by mouth every morning before breakfast. 90 tablet 3 ??? propranolol (INDERAL) 10 mg tablet 0 ??? rizatriptan (MAXALT) 10 mg tablet Take 10 mg by mouth. ??? traZODone (DESYREL) 50 mg tablet Take 1 tablet (50 mg total) by mouth at bedtime as needed for sleep. 90 tablet 1 No current facility-administered medications for this visit. ALLERGIES Allergies Allergen Reactions ??? Eszopiclone Nausea And Vomiting ??? Latex Other (see comments) ??? Morphine GI intolerance ??? Naproxen Sodium Other (see comments) ??? Piroxicam Rash PAST MEDICAL/SURGICAL HISTORY Past Medical History: Diagnosis Date ??? [...] DELIVERY ??? VAGINAL DELIVERY ??? VAGINAL DELIVERY VITAL SIGNS BP 126/86 (BP Location: Right arm, Patient Position: Sitting) Pulse 82 Wt 95.2 kg BMI 33.93 kg/m?? DIAGNOSTICS Vaginitis panel obtained and pending. Endovaginal pelvic ultrasound ordered and scheduled. PHYSICAL EXAMINATION General: She is a well-appearing female in no acute distress. Pelvis: External genitalia appears mildly erythemic but otherwise normal. She does have 1.5x4.0 cm cystic structure noted in the area of the Bartholin's gland on her right side. The cyst is mobile and slightly tender. No erythema in this area. Upon speculum exam, vaginal mucosa appears erythemic with creamy discharge noted. Cervix is visualized and appears pink and intact. Mirena IUD strings are present protruding from the cervical os. Vaginitis panel obtained. Upon bimanual exam, uterus is small, mobile, nontender. Adnexa without masses or tenderness. IMPRESSION/REPORT/PLAN #1 Vaginitis Based on symptoms and physical exam I a.m. going to start her on metronidazole for treatment of bacterial vaginosis. Also sent in a prescription for Diflucan in case she develops a yeast infection, which is quite common when she takes antibiotics. We will let her know the results of the vaginitis panel as soon as we have them. #2 Bartholin's Gland Cyst I am going to refer her to 1 of my surgeon colleagues for discussion surrounding management of her lymph gland cyst. It has definitely increased in size since I last saw her, and is causing her more discomfort than previously. At this point she has no additional concerns or questions and is agreeable to this plan of care. documented in this encounter Plan of Treatment Not on filedocumented as of this encounter Procedures Procedure Name Priority Date/Time Associated Diagnosis Comme nts VAGINITIS PANEL Routine 12/26/2018 11:52 AM Vaginitis Resul ts for this CDT procedure are i n the results section. CHLAMYDIA/GONORRHOE Routine 12/26/2018 11:52 AM Vaginitis R esults for this AE AMPLIFIED RNA CDT procedure a re in the results section. documented in this encounter Results Chlamydia / Gonorrhoeae Amplified RNA (12/26/2018 11:52 AM CDT) [facility] Datezr Method Time Signature Source Swab, Vagina 12/26/2018 10:43 PM CDT Chlamydia Negative Negative 12/26/2018 trachomatis 10:43 PM CDT amplified RNA Source Swab, Vagina 12/26/2018 10:43 PM CDT Neisseria Negative Negative 12/26/2018 gonorrhoeae 10:43 PM CDT amplified RNA Specimen Anatomical Collection Method Collection Time Receive d Time (Source) Location / / Volume Laterality Varies (Vagina) 12/26/2018 11:52 12/27/19 19 6:43 AM CDT PM CDT Jonathan Funez APRN.N.P. LAB MICROBIOLOGY - [facility] ORDERABLES Performing Organization Address City/State/ZIP Code Phon e Number [address] [address] LAB (ABNORMAL) Vaginitis Panel (12/26/2018 11:52 AM CDT) [facility] Date[facility] Method Time Signature Isi Positive (A) Negative 12/26/2018 species, DNA 2:06 PM CDT Gardnerella Negative Negative 12/26/2018 vaginalis, DNA 2:06 PM CDT Trichomonas Negative Negative 12/26/2018 vaginalis, DNA 2:06 PM CDT Specimen Anatomical Collection Method Collection Time Receive d Time (Source) Location / / Volume Laterality Swab (Vagina) 12/26/2018 11:52 12/26/2018 AM CDT 12:10 PM CDT Yi Kaye APRN, C.N.P. LAB MICROBIOLOGY - [facility] ORDERABLES Performing Organization Address City/State/ZIP Code Phon e Number [facility]- [address] [place] [address] LAB documented in this encounter Visit Diagnoses Diagnosis Vaginitis - Primary Bartholin's Gland Cyst documented in this encounter Additional Health Concerns Assessment Noted Time PHQ-9 Depression Total Score: 6 04/03/2017 9:36 AM ROCK SPLITTER documented as of this encounter Care Teams Nuclear Weapons Specialist Relationship Specialty Start Date End Date Zoë Nick APRN, C.N.P. PCP - General Family Medicine 11/19/17 11/29/[address] [place] [phone] documented as of this encounter
--- OUTSIDE RECORDS SUMMARY | 2022-02-02 11:02 | XMS_ITS | Encounter Summary ---
:1980 Author Organization [facility] Address [address] [place] [address] Care Team Providers Name Role Phone Zoë Nick APRN, C.NDallas Primary Care Provider [phone] Encounter Details Date Type Department Care Team Description 04/17/2018 Hospital Encounter Department of Hoda Horton Disorder Current Episode Hypomanic (HCC); Laboratory Medicine K, SHELLFISH PROCESSING LABORER Medication Therapy Mcfp Not Anticoa gulant in [address] [place] [phone] Social History Tobacco Use Types Packs/Day Years [...] do you attend anabaptist or Never 2019 sabianist services? Do you belong to any clubs [...] Sig Dispensed Refills Start Date End Date cetirizine (for_ZyrTEC) 10 Take 10 mg by mouth 0 09/20/2015 mg tablet daily as needed. clindamycin (for_CLEOCIN Apply 1 application 0 T) 1 % lotion topically 2 (two) times a day as needed. For hidradenitis suppurativa alum-mag hydroxide-simeth Take 30 mL by 0 018 01/29/2019 225-200-25 mg/5 mL mouth. suspension estradiol (ESTRACE) 0.1 Insert 2 g into the 42.5 g 1 07/201705/10/2018 mg/g (0.01%) vaginal cream vagina at bedtime. Insert 2-3 nights per week. fluconazole (DIFLUCAN) 150 Take 1 tablet (150 2 tablet 0 1 04/29/2017 05/10/2018 mg tablet mg total) by mouth every third day. Repeat in 3 days if symptoms persist. hydroxychloroquine Take 200 mg by 0 (PLAQUENIL) 200 mg tablet mouth daily. lamoTRIgine (for_LaMICtal) Take 200 mg by 0 09/01/2019 200 mg tablet mouth 2 (two) times a day. lithium carbonate Take by mouth at 0 01/08/2018 1 (LITHOBID) 300 mg ER bedtime. 1 Tablet tablet in AM and 4 in pm OLANZapine (ZyPREXA) 10 mg Take 10 mg by mouth 1 04/16/2018 09/01/2019 tablet daily. OLANZapine (ZyPREXA) 15 mg Take 7.5 mg by 0 01/2406/12/2018 tablet mouth at bedtime. pantoprazole (PROTONIX) 40 Take 1 tablet (40 90 tablet 3 05/10/2018 mg EC tabletIndications: mg total) by mouth Reflux Esophageal every morning before breakfast. propranolol (INDERAL) 10 0 12/20/2017 01/29/2019 mg tablet rizatriptan (MAXALT) 10 mg Take 10 mg by 0 201309/01/2019 tablet mouth. traZODone (DESYREL) 50 mg Take 1 tablet (50 90 tablet 1 01/29/2019 tabletIndications: mg total) by mouth Disturbance Sleep at bedtime as needed for sleep. documented as of this encounter Plan of Treatment Not on filedocumented as of this encounter Procedures Procedure Name Priority Date/Time Associated Diagnosis Comme nts LIPID PANEL, S Routine 04/17/2018 9:25 AM Bipolar Disorder Res ults for this POWER PLANT OPERATOR APPRENTICE Current Episode procedure ar e in Hypomanic (HCC) the results Medication Therapy section. Director Of Institutional Sales Not Anticoagulant BUN (BLOOD UREA Routine 04/17/2018 9:25 AM Bipolar Disorder Re sults for this NITROGEN), S/P POWER PLANT OPERATOR APPRENTICE Current Episode procedure are in Hypomanic (HCC) the results Medication Therapy section. Mcfp Not Anticoagulant THYROID-STIMULATIN Routine 04/17/2018 9:25 AM Bipolar Disorder Results for this G POWER PLANT OPERATOR APPRENTICE Current Episode procedure ar e in HORMONE-SENSITIVE Hypomanic (HCC ) the results (S-TSH) Medication Therapy section. Director Of Institutional Sales Not Anticoagulant GLUCOSE, FASTING, Routine 04/17/2018 9:25 AM Bipolar Disorder Results for this S/P POWER PLANT OPERATOR APPRENTICE Current Episode procedure ar e in Hypomanic (HCC) the results Medication Therapy section. Mcfp Not Anticoagulant LITHIUM LEVEL, S Routine 04/17/2018 9:25 AM Bipolar Disorder R esults for this POWER PLANT OPERATOR APPRENTICE Current Episode procedure ar e in Hypomanic (HCC) the results Medication Therapy section. Director Of Institutional Sales Not Anticoagulant documented in this encounter Results [place] Level (04/17/2018 9:25 AM POWER PLANT OPERATOR APPRENTICE) athologist Signature [place], S 1.1 0.5 - 1.2 04/17/2018 [facility] mmol/L 4:[address] [facility] Specimen Anatomical Collection Method Collection Time Receive d Time (Source) Location / / Volume Laterality Blood (Blood, 04/17/2018 9:25 AM 04/17/19 19 3:55 Venous) POWER PLANT OPERATOR APPRENTICE PM POWER PLANT OPERATOR APPRENTICE Hoda Horton SHELLFISH PROCESSING LABORER LAB BLOOD ADD-ON Performing Organization Address City/State/ZIP Code Phon e Number [facility] [address] [place] [address] [place] LAB (ABNORMAL) Glucose, Fasting (04/17/2018 9:25 AM POWER PLANT OPERATOR APPRENTICE) athologist Signature Glucose, 116 (H) 70 - 99 04/17/2018 [facility] Fasting, S mg/dL 1:44 PM [facility] LAB Specimen Anatomical Collection Method Collection Time Receive d Time (Source) Location / / Volume Laterality Blood (Blood, 04/17/2018 9:25 AM 04/17/19 Venous) POWER PLANT OPERATOR APPRENTICE 12:58 PM POWER PLANT OPERATOR APPRENTICE Hoda K Sol SHELLFISH PROCESSING LABORER LAB BLOOD NON ADD-ON Performing Organization Address City/[facility]/ZIP Code Phon [facility] Number [facility] [address] [place] [id number] LAB BUN (Blood Urea Nitrogen) (04/17/2018 9:25 AM POWER PLANT OPERATOR APPRENTICE) athologist Signature BUN (Blood Urea 11 6 - 21 04/17/2018 [facility] Nitrogen), S mg/dL 1:44 PM [facility] LAB Specimen Anatomical Collection Method Collection Time Receive d Time (Source) Location / / Volume Laterality Blood (Blood, 04/17/2018 9:25 AM 04/17/19 Venous) POWER PLANT OPERATOR APPRENTICE 12:58 PM POWER PLANT OPERATOR APPRENTICE Hoda Giovana Sol SHELLFISH PROCESSING LABORER LAB BLOOD ADD-ON Performing Organization Address City/[facility]/ZIP Code Phon e Number [facility] [address] [place] [id number] LAB S-TSH (Thyroid-Stimulating Hormone - Sensitive) (04/17/2018 9:25 AM POWER PLANT OPERATOR APPRENTICE) athologist Signature TSH, Sensitive 2.9 0.3 - 4.2 04/17/2018 [facility] mIU/L 1:44 PM POWER PLANT OPERATOR APPRENTICE [facility] Comment: Biotin has been identified by the prema mcguire as a potential interfering substance. ??Higher concentr ations of biotin may be found in multivitamins, hair/nail supple ments, and workout supplements. ??If the result does not [facility] clinical observations, repeat testing after patient refrains fr om the use of supplements for at least 12 hours. Specimen Anatomical Collection Method Collection Time Receive d Time (Source) Location / / Volume Laterality Blood (Blood, 04/17/2018 9:25 AM 04/17/19 Venous) POWER PLANT OPERATOR APPRENTICE 12:58 PM POWER PLANT OPERATOR APPRENTICE Hoda Horton SHELLFISH PROCESSING LABORER LAB BLOOD ADD-ON Performing Organization Address City/State/ZIP Code Phon e Number [facility] [address] [place] [address] LAB (ABNORMAL) Lipid Panel (04/17/2018 9:25 AM POWER PLANT OPERATOR APPRENTICE) P athologist Signature Cholesterol, 204 (H) mg/dL 04/17/2018 [facility] Total 1:[address] [facility] Comment: ----REFERENCE VALUE---- Desirable: < 200 Borderline high: 200 - 239 High: > or = 240 Triglycerides 158 (H) mg/dL 04/17/2018 1:44 PM [facility] [place] [facility] Comment: ----REFERENCE VALUE---- Normal: <150 Borderline high: 150-199 High: 200-499 Very high: > or =500 Cholesterol, HDL, S 79 >=50 mg/dL 04/17/2018 1:44 PM POWER PLANT OPERATOR APPRENTICE [facility] [place] [facility] Calculated LDL 93 mg/dL 04/17/2018 1:44 PM POWER PLANT OPERATOR APPRENTICE [facility] [place] [facility] Comment: ----REFERENCE VALUE---- Desirable: <100 Above Desirable: 100-129 Borderline high: 130-159 High: 160-189 Very high: > or =190 Cholesterol, Non-HDL, 125 mg/dL 04/17/2018 1:44 PM POWER PLANT OPERATOR APPRENTICE [facility] [place] [facility] Comment: ----REFERENCE VALUE---- Desirable: <130 Above Desirable: 130-159 Borderline high: 160-189 High: 190-219 Very high: > or =220 Specimen Anatomical Collection Method Collection Time Receive d Time (Source) Location / / Volume Laterality Blood (Blood, 04/17/2018 9:25 AM 04/17/19 19 Venous) POWER PLANT OPERATOR APPRENTICE 12:58 PM POWER PLANT OPERATOR APPRENTICE Hoda Horton SHELLFISH PROCESSING LABORER LAB BLOOD ADD-ON Performing Organization Address City/State/ZIP Code Phon e Number [facility] [address] [place] [address] LAB documented in this encounter Visit Diagnoses Diagnosis Bipolar Disorder Current Episode Hypoman ic (HCC) Medication Therapy Mcfp Not Anticoa gulant documented in this encounter Additional Health Concerns Assessment Noted Time PHQ-9 Depression Total Score: 6 04/03/2017 9:36 AM POWER PLANT OPERATOR APPRENTICE documented as of this encounter Care Teams Siderographist Relationship Specialty Start Date End Date Zoë Nick, TIM, C.N.P. PCP - General Family Medicine 11/19/17 11/29/20 [address], [place] [address] documented as of this encounter
--- OUTSIDE RECORDS SUMMARY | 2022-02-02 11:02 | XMS_ITS | Encounter Summary ---
:1980 Author Organization [facility] Address [address] [place] [address] Care Team Providers Name Role Phone Zoë Nick APRN, C.N.P. Primary Care Provider [phone] Reason for Visit Reason Onset Date Comments Vaginitis/Bacterial Vaginosis 02/27/2018 Encounter Details Date Type Department Care Team Description 02/27/2018 Clinical Communication Department of Larisa Kaye nitian/Bacterial Obstetrics and Yi Dominguez Vaginosis Gynecology in TIM, C.N.PSarah [place], [address] [place], [place] [address] [address] [place], [place] [phone] (Work) [phone] Social History Tobacco Use Types Packs/Day Years [...] or relatives? How often do you attend taoism or Never 2019 baptist services? Do you belong to any clubs or No 01/29/2019 organizations such as taoism groups, unions, fraternal or athletic groups, or [...] Telephone Encounter - Raisa Root R.N. - 02/27/2018 5:10 PM CST Images from the original note were not included. Yi Kaye APRN, C.N.P. ??[facility] Ob Fbfb Nurse 5 minutes ago (5:03 PM) Please contact patient and let her know that I did send in a prescription for Diflucan to [facility] in [place]. ??She should take 1 tablet today and the 2nd in 3 days. ??If her symptoms persistI am going to want to see her back in the clinic for evaluation. ??Please let me know if she has anyquestions. ??Thanks (Routing comment) Patient notified. SAW RUNNER Telephone Encounter - Raisa Root R.N. - 02/27/2018 4:49 PM CST Last visit with you was 01/03/18. Thanks SAW RUNNER Telephone Encounter - Marquez Gamble - 02/27/2018 4:36 PM CST Reason for Communication: had to start taking antibiotic again 5 days and now has yeast infection. Pt said Yi will know about this. Current Can Nursing/Provider leave a detailed message: yes Action Needed: please call Name of Medication (if relevant): SAW RUNNER documented in this encounter Plan of Treatment Not on filedocumented as of this encounter Visit Diagnoses Not on filedocumented in this encounter Additional Health Concerns Assessment Noted Time PHQ-9 Depression Total Score: 6 04/03/2017 9:36 AM BAND SAW RUNNER documented as of this encounter Care Teams Assistant Infant Toddler Teacher Relationship Specialty Start Date End Date Zoë Nick, TIM, C.N.P. PCP - General Family Medicine 11/19/17 11/29/20 [address], [place] [phone] documented as of this encounter"
--- OUTSIDE RECORDS SUMMARY | 2022-02-02 11:02 | XMS_ITS | Encounter Summary ---
:1980 Author Organization [facility] Address [address] [place] [address] Care Team Providers Name Role Phone Zoë Nick APRN, C.NDallas Primary Care Provider [phone] Encounter Details Date Type Department Care Team Description 12/24/2017 Clinical Communication Department of [facility] Angelica العلي [facility], LSarahPHarvinder [facility], in [facility] [address] [place], [place] [address] [facility] [address] [place], [place] [phone] [phone] (Work) [phone] Social History Tobacco Use Types Packs/Day Years Used Date Smoking Tobacco: Every Day Cigarettes 1 Smokeless Tobacco: Current Snuff Alcohol Use Standard Drinks/Week Comments Yes [...] or relatives? How often do you attend synagogue or Never 2019 quaker services? Do you belong to any clubs or No 01/29/2019 organizations such as synagogue groups, unions, fraternal or athletic groups, or [...] Miscellaneous Notes Telephone Encounter - Ольга العلي L.P.N. - 12/24/2017 3:59 PM CDT See previous message. Telephone Encounter - Ольга العلي L.P.N. - 12/24/2017 3:53 PM CDT Attempted to contact Marlin in regards to denial of ranitidine not being covered. documented in this encounter Plan of Treatment Not on filedocumented as of this encounter Visit Diagnoses Not on filedocumented in this encounter Additional Health Concerns Assessment Noted Time PHQ-9 Depression Total Score: 6 04/03/2017 9:36 AM HEALTH INSURANCE SPECIALIST documented as of this encounter Care Teams Instrumentation And Controls Designer Relationship Specialty Start Date End Date Zoë Nick, TIM, C.N.P. PCP - General Family Medicine 11/19/17 11/29/[address] [phone] documented as of this encounter
--- OUTSIDE RECORDS SUMMARY | 2022-02-02 11:02 | XMS_ITS | Encounter Summary ---
:1980 Author Organization [facility] Address [address] [place] [address] Care Team Providers Name Role Phone Zoë Nick APRN, C.N.P. Primary Care Provider [phone] Reason for Visit Reason Comments Follow-up Date of Discharge: Reason: GI Bleed Location: [facility] Patient is currently having a lot of pa in, has not been properly eating, hasn't been sleeping properly. Has been still having bloody stools, was discharged without pain management. Noemí n comes in waves. Has also been having on and off sweats. Patient states t hat she vomited this morning and found that it contained a streak of blood mixed in. Appointment Request (Routine) - Closed Specialty Diagnoses / Procedures Referred By Contact Refer red To Contact Family Medicine Diagnoses [facility] Procedures [facility] Referral ID Status Reason Start Date Expiration Date Visits Requ ested Visits Authorized [id number] Closed 02/11/2018 02/11/2019 1 1 Encounter Details Date Type Department Care Team Description 02/13/2018 Office Visit Department of Family Aneta Vaz P.A.-C. [address] [place] [address] Gastric Ulcer Unspecified As Acute Or Ch ronic Without Hemorrhage Or Perforation (Primary Dx); Medicine, [place] Zoë Nick APRN, C.N.P. [address] [place] [address] Alcohol Moderate Or Severe Use Disorder (Dependence) Uncomplicated (HCC); Clinic, in Ele Page r I Disorder (HCC) [place] [address] [place] [phone] Social History Tobacco Use Types Packs/Day Years [...] or relatives? How often do you attend evangelical or Never 2019 tenriism services? Do you belong to any clubs or No 01/29/2019 organizations such as evangelical groups, unions, fraternal or athletic groups, or [...] Sign Reading Time Taken Comments Blood Pressure 136/90 02/13/2018 10:00 AM MENDER KNIT GOODS Pulse 88 02/13/2018 9:54 AM MENDER KNIT GOODS Temperature 36.9 ??C (98.4 ??F) 02/13/2018 9:54 AM MENDER KNIT GOODS Respiratory Rate 12 02/13/2018 9:54 AM MENDER KNIT GOODS Oxygen Saturation - - Inhaled Oxygen Concentration - - Weight 93.9 kg (206 lb 14.4 oz) 02/13/2018 9:54 AM MENDER KNIT GOODS Height 167.5 cm (5' 5.95) 02/13/2018 9:54 AM MENDER KNIT GOODS Body Mass Index 33.45 02/13/2018 9:54 AM MENDER KNIT GOODS documented in this encounter Patient Instructions AttachmentsThe following attachments cannot be sent through Care Everywhere. Understanding Bipolar Disorder (Kyrgyz)documented in this encounter H&P Notes Zoë Nick, TIM, C.N.P. - 02/13/2018 9:45 AM CST CHIEF COMPLAINT: Chief Complaint Patient presents with ??? Follow-up Date of Discharge: Reason: GI Bleed Location: [facility] Patient is currently having a lot of pain, has not been properly eating, hasn't been sleeping properly. Has been still having bloody stools, was discharged without pain management. Pain comes in waves. Has also been having on and off sweats. Patient states that she vomited this morning and found that it contained a streak of blood mixed in. HISTORY OF PRESENT ILLNESS: Marlin is here for Transitional Care [facility] discharge on February 11, 2018. Post-hospital follow-up call was completed by the RN on February 12, 2018. Hospital records were carefully reviewed. She was admitted with epigastric pain and alcohol intoxication. She had vomited and had blood streaking the vomit. She was treated with IV fluids and IV Protonix and sent to upper gastrointestinal endoscopy with the finding of several non bleeding pre-pyloric gastric ulcers. She was transition to Maalox on oral Protonix and discharged with instructions to curtail alcohol use. Discharge hemoglobin was 11.8. She was instructed to recheck hemoglobin in 5 days. She follows with Psychiatry formedication management for bipolar disorder. MEDICATIONS: Current Outpatient Prescriptions: ??? alum-mag hydroxide-simeth 225-200-25 mg/5 mL suspension, Take 30 mL by mouth., Disp: , Rfl: ??? cetirizine (for_ZyrTEC) 10 mg tablet, Take 10 mg by mouth daily as needed., Disp: , Rfl: ??? clindamycin (for_CLEOCIN T) 1 % lotion, Apply 1 application topically 2 (two) times a day as needed., Disp: , Rfl: ??? estradiol (ESTRACE) 0.1 mg/g (0.01%) vaginal cream, Insert 2 g into the vagina at bedtime. Insert 2-3 nights per week., Disp: 42.5 g, Rfl: 1 ??? hydroxychloroquine (PLAQUENIL) 200 mg tablet, Take 200 mg by mouth daily., Disp: , Rfl: ??? lamoTRIgine (for_LaMICtal) 200 mg tablet, Take 200 mg by mouth 2 (two) times a day. , Disp: , Rfl: ??? lithium carbonate (LITHOBID) 300 mg ER tablet, Take 1,200 mg by mouth at bedtime., Disp: , Rfl: 0 ??? OLANZapine (ZyPREXA) 15 mg tablet, Take 7.5 mg by mouth at bedtime., Disp: , Rfl: 0 ??? pantoprazole (PROTONIX) 40 mg EC tablet, Take 40 mg by mouth., Disp: , Rfl: ??? propranolol (INDERAL) 10 mg tablet, , Disp: , Rfl: 0 ??? traZODone (DESYREL) 50 mg tablet, Take 1 tablet (50 mg total) by mouth at bedtime as needed for sleep., Disp: 90 tablet, Rfl: 1 ALLERGIES: Allergies Allergen Reactions ??? Eszopiclone Nausea And Vomiting ??? Latex Other (see comments) ??? Morphine GI intolerance ??? Naproxen Sodium Other (see comments) ??? Piroxicam Rash REVIEW OF SYSTEMS: GENERAL: No weight gain, no weight loss, no fever in past month, no chills, no sweats, no fatigue EENT: No blurred vision, no double vision, no eye pain, no sinus problems, no hoarseness, no difficulty swallowing, no mouth sores, no diminished hearing, no ringing in ears, no enlarged glands PULMONARY: No shortness of breath, no cough, no wheezing, no sputum, no hemoptysis CARDIAC: No valve problems, no Chest pain, no Chest pressure, no rapid beating, no irregular beating, no dependent edema, pain in calves or with walking, no difficulty moving arms and legs GI: Heartburn, no nausea, no vomiting, no constipation, no diarrhea, blood in BM BREAST: No lumps of breast, no nipple discharge, no pain in breast : No vaginal discharge, no burning/pain with urination, no difficulty starting stream, no difficulty emptying bladder, no excessive urination MUSCULOSKELETAL: No joint pain, no joint swelling, no joint stiffness, no muscle pain, no muscle stiffness, no back pain, no back stiffness SKIN: No skin rashes, no skin sores, no change in moles NEURO: No significant headaches, no slurred speech, no seizures, no dizziness, no loss of consciousness, no memory loss ENDOCRINE: No excessive thirst, no excessive bruising PAST MEDICAL HISTORY: Past Medical History: Diagnosis Date ??? Abuse Tobacco Smoking ??? Allergy Seasonal ??? Arthritis Rheumatoid (HCC) ??? Bipolar I Disorder (HCC) ??? Disturbance Sleep 12/18/2017 ??? Fibromyalgia ??? Hidradenitis Suppurativa ??? Migraine Headache ??? Persistent Depressive Disorder ??? Posttraumatic Stress Disorder Prolonged ??? Raynaud's Disease ??? Reflux Esophageal PAST SURGICAL HISTORY: Past Surgical History: Procedure Laterality Date ??? ARTHRODESIS OF ANKLE N/A 2001 Ankle fusion ??? DILATION AND CURETTAGE ??? REPAIR OF UMBILICAL HERNIA N/A Repair of umbilical hernia ??? VAGINAL DELIVERY ??? VAGINAL DELIVERY ??? VAGINAL DELIVERY SOCIAL HISTORY: Social History Substance Use Topics ??? Smoking status: Current Every Day Smoker Packs/day: 1.00 Types: Cigarettes ??? Smokeless tobacco: Never Used ??? Alcohol use Yes FAMILY HISTORY: Family History Problem Relation Age of Onset ??? Breast cancer Mother ??? Thyroid cancer Father ??? Rheum arthritis Grandmother ??? Fibromyalgia Sister VITALS: Temperature: [36.9 ??C] 36.9 ??C Resp Rate: [12] 12 Blood Pressure: (128-136)/(90-98) 136/90 Pulse Rate: [88] 88 LABS and DIAGNOSTICS: CBC will be drawn on February 18, 2018. PHYSICAL EXAM: GENERAL: In general, the patient is pleasant and appears stated age. SKIN: Without lesion. EYES: PERRLA. EOMI intact. Fundi sharp discs. Conjunctiva and lids normal. ENT: Tympanic membranes clear bilaterally. Nasal mucosa without erythema or congestion. Mouth without erythema or exudate. LYMPH NODES: Neck: Supple without adenopathy, no thyromegaly. Carotid pulses are equal bilaterally. PERIPHERAL VESSELS: Femoral, dorsal, pedal and posterior tibial pulses are equal. HEART: Regular rate and rhythm without murmur. LUNGS: Clear to auscultation, good inspiratory effort. ABDOMEN: Soft, nontender, no palpable mass, no hepatosplenomegaly. EXTREMITIES: Warm, dry, no cyanosis or peripheral edema. MENTAL: Alert and oriented times three. NEUROLOGIC: Deep tendon reflexes are +2 and symmetrical. ASSESSMENT/PLAN: #1 Gastric Ulcer Unspecified As Acute Or Chronic Without Hemorrhage Or Perforation #2 Alcohol Moderate Or Severe Use Disorder (Dependence) Uncomplicated (HCC) She understands the medication should help heal the ulcers. Advised to avoid alcohol completely. Tryto cut back on tobacco use. Do not use ibuprofen. Can take acetaminophen 325 mg, 2 tabs every 4 hours as needed for discomfort. She will return for CBC on 02/18/2018. #3 Bipolar I Disorder (HCC) Continue to follow with Psychiatry for medication management. HEALTH MAINTENANCE: Up-to-date. ER KNIT GOODS documented in this encounter Plan of Treatment Not on filedocumented as of this encounter Visit Diagnoses Diagnosis Gastric Ulcer Unspecified As Acute Or Ch ronic Without Hemorrhage Or Perforation - Primary Alcohol Moderate Or Severe Use Disorder (Dependence) Uncomplicated (HCC) Bipolar I Disorder (HCC) documented in this encounter Additional Health Concerns Assessment Noted Time PHQ-9 Depression Total Score: 6 04/03/2017 9:36 AM MENDER KNIT GOODS documented as of this encounter Care Teams Engineering Consultant Relationship Specialty Start Date End Date Zoë Nick APRN, C.N.P. PCP - General Family Medicine 11/19/17 11/29/[address] [phone] documented as of this encounter
--- OUTSIDE RECORDS SUMMARY | 2022-02-02 11:02 | XMS_ITS | Encounter Summary ---
:1980 Author Organization [facility] Address [address] [place] [address] Care Team Providers Name Role Phone Zoë Nick APRN CSarahNDallas Primary Care Provider [phone] Encounter Details Date Type Department Care Team Description 08/30/2018 Nurse Triage Department of Family Crews, Iliana Gillespie R.N. Medicine, [facility], or [place], [place] [address] [place] [address] Social History Tobacco Use Types Packs/Day Years [...] do you attend buddhist or Never 2019 catholic services? Do you belong to any clubs [...] this encounter Miscellaneous Notes Telephone Encounter - Gianna Raymundo R.N. - 08/30/2018 11:51 AM CDT Patient was provided aftercare instructions. Discussed with Tele Emergency Med Physician ( Dr. Marie Valle). Per [facility] Dr. Valle patient should have someone drive her to the ER. If no one can drive patient then patient should call 911. Called patient and advised of Tele Emergency Med Physician???s recommendation. Patient stated understanding of plan. documented in this encounter Plan of Treatment Not on filedocumented as of this encounter Visit Diagnoses Not on filedocumented in this encounter Additional Health Concerns Assessment Noted Time PHQ-9 Depression Total Score: 6 04/03/2017 9:36 AM EXHIBITION ORGANISER documented as of this encounter Care Teams Feather Edger Relationship Specialty Start Date End Date Zoë Nick, JUNK DEALER, C.N.P. PCP - General Family Medicine 11/19/17 11/29/[address] [id number] documented as of this encounter
--- OUTSIDE RECORDS SUMMARY | 2022-02-02 11:02 | XMS_ITS | Encounter Summary ---
:1980 Author Organization [facility] Address [address] [place] [address] Care Team Providers Name Role Phone Zoë Nick APRN, C.N.P. Primary Care Provider [phone] Reason for Visit Reason Comments Med Refill Encounter Details Date Type Department Care Team Description 04/04/2018 Refill Department of Family Medicine, Bibi Nick APRN, Med Refill [facility], [place], [place] [address] [place] [address] [place] [address] [phone] Social History Tobacco Use Types Packs/Day Years [...] or relatives? How often do you attend anglican or Never 2019 caodaism services? Do you belong to any clubs or No 01/29/2019 organizations such as anglican groups, unions, fraternal or athletic groups, or [...] this encounter Miscellaneous Notes Telephone Encounter - Christophe Cobian V. C.M.A. - 04/04/2018 11:55 AM SATELLITE TELEVISION INSTALLER SUBJECTIVE CHIEF COMPLAINT / REASON FOR CALL Med Refill INFORMATION DISCUSSED Patient was notified that prescription was refilled and ready for bean picker machine operator. PLAN Disposition/Recommendation: N/A Information: patient/caller able to repeat back in their own words Caller agreeable to plan of care: yes The following references were used: provider Zoë Nick LLITE TELEVISION INSTALLER Telephone Encounter - Ольга العلي L.P.N. - 04/04/2018 10:06 AM SATELLITE TELEVISION INSTALLER Spoke with Marlin and verified that she is taking pantoprazole daily in the morning. LLITE TELEVISION INSTALLER Telephone Encounter - Erlinda Weber - 04/04/2018 7:41 AM CST Nurse review: Unable to pend medication; No frequency on medication list to compare to refill request Primary Provider: Zoë Nick APRN, C.N.P. Name of medication: pantoprazole Strength: [address] tablet Frequency: take 1 tablet once daily before a meal Quantity: 3- Refills: 0 Last Refill: 02/11/18 Pharmacy: [facility] LLITE TELEVISION INSTALLER documented in this encounter Plan of Treatment Not on filedocumented as of this encounter Visit Diagnoses Diagnosis Reflux Esophageal - Primary documented in this encounter Additional Health Concerns Assessment Noted Time PHQ-9 Depression Total Score: 6 04/03/2017 9:36 AM SATELLITE TELEVISION INSTALLER documented as of this encounter Care Teams Bank Runner Relationship Specialty Start Date End Date Zoë Nick APRN, C.N.P. PCP - General Family Medicine 11/19/17 11/29/[address] [address] documented as of this encounter
--- OUTSIDE RECORDS SUMMARY | 2022-02-02 11:02 | XMS_ITS | Encounter Summary ---
:1980 Author Organization [facility] Address [address] [place] [address] Care Team Providers Name Role Phone Zoë Nick APRN, C.N.P. Primary Care Provider [phone] Reason for Visit Reason Comments Med Refill Encounter Details Date Type Department Care Team Description 09/18/2018 Refill Department of Family Medicine, Bibi Nick APRN, Med Refill [facility], [place], [place] [address] [place] [address] [place] [address] [phone] Social History Tobacco Use Types Packs/Day Years [...] do you attend voodoo or Never 2019 rastafari services? Do you belong to any clubs [...] this encounter Miscellaneous Notes Telephone Encounter - Gabbi Fernandez L.P.N. - 09/18/2018 3:22 PM CDT SUBJECTIVE CHIEF COMPLAINT / REASON FOR CALL Med Refill INFORMATION DISCUSSED Patient notified that she will need to make an appointment for follow-up before receiving additionalrefills. PLAN Disposition/Recommendation: patient to schedule appointment Information: patient/caller able to repeat back in their own words Caller agreeable to plan of care: yes The following references were used: provider Sergio Telephone Encounter - Patricia Hill M.D. - 09/18/2018 3:19 PM CDT Needs follow-up. No refills. Telephone Encounter - Gabbi Fernandez L.P.N. - 09/18/2018 3:06 PM CDT SUBJECTIVE CHIEF COMPLAINT / REASON FOR CALL Med Refill INFORMATION DISCUSSED This medication is on patient's medication list as a historical med last being prescribed in May of 2018. Please advise. PLAN Disposition/Recommendation: awaiting provider recommendations Information: not applicable Caller agreeable to plan of care: no NA The following references were used: other Epic Telephone Encounter - Allyn Kaye - 09/18/2018 2:50 PM CDT Nurse review: Unable to pend medication; Not on the med list Primary Provider: Zoë Nick APRN, C.N.P. Name of medication: Minocycline Strength: 100 mg Frequency: take one capsule by mouth twice a day for 10 days Quantity: 20 Refills: Last Refill: 06/16/18 Pharmacy: [facility] documented in this encounter Plan of Treatment Not on filedocumented as of this encounter Visit Diagnoses Not on filedocumented in this encounter Additional Health Concerns Assessment Noted Time PHQ-9 Depression Total Score: 6 04/03/2017 9:36 AM ASSISTANT TERMINAL MANAGER documented as of this encounter Care Teams Etl Analyst Relationship Specialty Start Date End Date Zoë Nick, TIM, C.N.P. PCP - General Family Medicine 11/19/17 11/29/[address] [address] documented as of this encounter
--- OUTSIDE RECORDS SUMMARY | 2022-02-02 11:02 | XMS_ITS | Encounter Summary ---
:1980 Author Organization [facility] Address [address] [place] [address] Care Team Providers Name Role Phone Zoë Nick APRN, C.N.P. Primary Care Provider Encounter Details Date Type Department Care Team Description 05/04/2019 Orders Only Department of Family Zoë Nick APR N, Medicine, [facility], [place] in [facility] [address] [address] [place] [address] [phone] Social History Tobacco Use Types Packs/Day Years [...] or relatives? How often do you attend druze or Never 2019 lutheran services? Do you belong to any clubs or No 01/29/2019 organizations such as druze groups, unions, fraternal or athletic groups, or [...] documented as of this encounter Care Teams Fishing Instructor Relationship Specialty Start Date End Date Zoë Nick, TIM, C.N.P. PCP - General Family Medicine 11/19/17 11/29/[address] [address] documented as of this encounter
--- OUTSIDE RECORDS SUMMARY | 2022-02-02 11:02 | XMS_ITS | Encounter Summary ---
:1980 Author Organization [facility] Address [address] [place] [address] Care Team Providers Name Role Phone Zoë Nick APRN, C.N.P. Primary Care Provider [phone] Reason for Visit Reason Comments Chest Pain right side rib pain noted mo nths ago. She also has a list of concerns that she will go over, she feels unresolved. Encounter Details Date Type Department Care Team Description 05/10/2018 Office Visit Department of Family Patricia Hill Art hritis Rheumatoid (HCC) (Primary Dx); Medicine, Kaylee Oliver Reflux Esophageal; Clinic, in [place] [address] Bipolar I Disorder (HCC); [place], [place] Abuse Tobacco Smoking; [address] [address] Alcohol Moderate Or Severe Use Disorder (Dependence) Uncomplicated (HCC); [place], [place] [phone] Chronic Gastri c Ulcer Without Hemorrhage Or Perforation; [phone] (Work) Impaired Fasting Glucose; [phone] Change In Bowel Habit; (Fax) Obesity Body Ma ss Index 30-39.9 Adult; Nicotine Depend ence Cigarettes With Other Nicotine Induced Disorder; Infection Urina ry Tract Social History Tobacco Use Types Packs/Day Years [...] or relatives? How often do you attend advent or Never 2019 advent services? Do you belong to any clubs or No 01/29/2019 organizations such as advent groups, unions, fraWedia or athletic groups, or school groups? How [...] Sign Reading Time Taken Comments Blood Pressure 132/88 05/10/2018 11:00 AM LEATHER TOGGLER Pulse 106 05/10/2018 10:56 AM LEATHER TOGGLER Temperature 36.7 ??C (98.1 ??F) 05/10/2018 10:56 AM LEATHER TOGGLER Respiratory Rate 16 05/10/2018 10:56 AM LEATHER TOGGLER Oxygen Saturation 98% 05/10/2018 10:56 AM LEATHER TOGGLER Inhaled Oxygen Concentration - - Weight 99.5 kg (219 lb 4 oz) 05/10/2018 10:56 AM LEATHER TOGGLER Height - - Body Mass Index 35.45 02/13/2018 9:54 AM LEATHER TOGGLER documented in this encounter Progress Notes Patricia Hill M.D. - 05/10/2018 11:00 AM CST CHIEF COMPLAINT/REASON FOR VISIT Multiple issues HISTORY OF PRESENT ILLNESS This 38-year old female presents to clinic secondary to multiple issues. She has had longstanding problems with her bowel regimen. She will have increased frequency with episodic watery stools. She washospitalized fall underwent upper endoscopy which revealed peptic ulcer disease. She was placed on Protonix and was advised to continue on the product. When she has missed a dose or 2 and she has increased pain. 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 She continues on Plaquenil. She has marked psychiatric disease and follows with her psychiatrist on a monthly basis. She is on longstanding lithium and generic Zyprexa. The Zyprexa was recently increased but she is unclear of the dose. She had decreased libido and she trialed vaginal estrogen with no relief of her symptoms. She discontinued the vaginal estrogen. She has increased thirst. She has had impared fasting glucose for some time. She has episodic yeast infections primarily in the [place] area. She has been gaining weight. She drinks 3 glasses of wine each day. She continues to smoke a pack cigarettes each day. Her last ophthalmic exam was greater than 2 years ago. Her last dental exam was greater than 10 years ago. She is taking her other medications as prescribed. EMR reviewed. CURRENT MEDICATIONS Current Outpatient Prescriptions: ??? cetirizine (for_ZyrTEC) 10 mg tablet, Take 10 mg by mouth daily as needed., Disp: , Rfl: ??? clindamycin (for_CLEOCIN T) 1 % lotion, Apply 1 application topically 2 (two) times a day as needed., Disp: , Rfl: ??? hydroxychloroquine (PLAQUENIL) 200 mg tablet, Take [...] at bedtime., Disp: , Rfl: 0 ??? minocycline (MINOCIN,DYNACIN) 100 mg capsule, , Disp: , Rfl: 2 ??? OLANZapine (ZyPREXA) 10 mg tablet, Take 10 mg by mouth daily., Disp: , Rfl: 1 ??? OLANZapine (ZyPREXA) 15 mg tablet, Take [...] 30 mL by mouth., Disp: , Rfl: Zyprexa(olanzapine) dose was recently increased but it is not clear what the dose might be-records are pending. Allergies Allergen Reactions ??? Eszopiclone Nausea And [...] Pneumovax 12/01/2012 Influenza 12/18/2017 SOCIAL HISTORY Alcohol 3 glasses a wine each day Caffeine 4 cups of coffee each day with soda once per week and tea once per week Family History Problem Relation Age of Onset ??? Breast cancer Mother ??? Thyroid cancer Father ??? Rheum arthritis Grandmother ??? Fibromyalgia Sister Vitals: 05/10/18 1056 05/10/18 1100 BP: 130/88 132/88 Patient Position: Sitting Sitting Pulse: 106 Temp: 36.7 ??C Resp: 16 Weight: 99.5 kg SpO2: 98% TempSrc: Temporal PHYSICAL EXAM General: Neatly dressed well groomed. HEENT: PERRL. EOMs are full. Ears: TMs [...] to auscultation. No palpable chest wall masses. Abdomen: Soft, nontender, bowel sounds present, no organomegaly although exam is difficult to assesssecondary to body habitus. ASSESSMENT/PLAN 1. Rheumatoid arthritis without specialty care evaluation for many years on chronic Plaquenil 2. Bipolar 1 disorder followed closely by Psychiatry 3. Alcohol moderate disorder uncomplicated but may be contributing to her GI symptoms-evaluation is in process 4. Chronic gastric ulcer without hemorrhage or perforation currently on a proton pump inhibitor 5. Impaired fasting glucose with evaluation in process 6. Change bowel habit with evaluation in process 7. Obesity-progressive 8. Nicotine dependence with other nicotine induced disorder with limited plans for cessation Supportive measures discussed in detail. Will check labs with the CBC, CRP, sedimentation rate, hemoglobin A1c, hepatic function study, basic metabolic profile, enteric pathogen culture, and urinalysis, following up accordingly. Will advise formal evaluation with Rheumatology in regards to the chronic Plaquenil use. Would recommend continued for close follow-up with her psychiatrist. Symptoms could be related to her multiple medications but additional evaluation is warranted. Encourage smoking cessation. Spent additional 3 min discussing smoking cessation in detail. Encourage cutting back on the alcohol. Risks and benefits of medications discussed. All questions answered. Signs and symptoms to lead to emergent evaluation are reviewed. See the medication reconciliation and preventive services. Angela consider her options. Spent 20 of the 35 minute visit in discussion. HER TOGGLER documented in this encounter Plan of Treatment Not on filedocumented as of this encounter Procedures Procedure Name Priority Date/Time Associated Diagnosis Comme nts BACTERIAL CULTURE, Routine 05/10/2018 2:39 Infection Urinary R esults for this AEROBIC + SUSC, URINE PM LEATHER TOGGLER Tract proced ure are in the results section. URINALYSIS WITH Routine 05/10/2018 1:59 Impaired Fasting Resul ts for this MICROSCOPIC IF PM LEATHER TOGGLER Glucose procedure are in INDICATED, U the results section. MICROSCOPIC MANUAL Routine 05/10/2018 1:59 Result s for this PM LEATHER TOGGLER procedure are i n the results section. HEPATIC FUNCTION Routine 05/10/2018 11:46 Arthritis Rheumatoid Results for this PANEL, S AM LEATHER TOGGLER ([facility]) procedure are in Bipolar I Disorder the resul ts ([facility]) section. Alcohol Moderate Or Severe Use Disorder (Dependence) Uncomplicated (H CC) Chronic Gastric Ulcer Without Hemorrhage Or Perforation CBC WITH Routine 05/10/2018 11:46 Reflux Esophage al Results for this DIFFERENTIAL, B AM LEATHER TOGGLER Arthritis Rheumatoid proc edure are in ([facility]) the results Bipolar I Disorder section. ([facility]) Abuse Tobacco Sm oking Alcohol Moderate Or Severe Use Disorder (Dependence) Uncomplicated (H CC) Chronic Gastric Ulcer Without Hemorrhage Or Perforation HEMOGLOBIN A1C, B Routine 05/10/2018 11:46 Impaired Fasting Re sults for this AM LEATHER TOGGLER Glucose procedure are i n the results section. BASIC METABOLIC Routine 05/10/2018 11:46 Reflux Esophage al Results for this PANEL, S/P AM LEATHER TOGGLER Arthritis Rheumatoid procedu re are in ([facility]) the results Bipolar I Disorder section. ([facility]) Alcohol Moderate Or Severe Use Disorder (Dependence) Uncomplicated (H CC) Chronic Gastric Ulcer Without Hemorrhage Or Perforation Impaired Fasting Glucose SEDIMENTATION RATE, B Routine 05/10/2018 11:43 Arthritis Rheum atoid Results for this AM LEATHER TOGGLER ([facility]) procedure are i n the results section. C-REACTIVE PROTEIN Routine 05/10/2018 11:43 Arthritis Rheumato id Results for this (CRP), S/P AM LEATHER TOGGLER ([facility]) procedure are i n the results section. documented in this encounter Results Bacterial Culture, Aerobic + Susc, Urine (05/10/2018 2:39 PM LEATHER TOGGLER) Analysis Performed At Patho logist Time Signature Bacterial Mixed 05/11/2018 [facility] Culture, tracey. 4:23 PM LEATHER TOGGLER HEALTH Aerobic, Urine SYSTEM- [place] LAB Specimen Anatomical Collection Method Collection Time Receive d Time (Source) Location / / Volume Laterality Urine (Urine, 05/10/2018 2:39 PM 05/10/19 19 7:00 Midstream) LEATHER TOGGLER PM LEATHER TOGGLER Comment: Specimen Source Site: Urine Patricia J Hurtt M.D. LAB MICROBIOLOGY - GENERAL O RDERABLES Performing Organization Address City/[facility]/ZIP Code Phon e Number [facility] [address] [place] [address] LAB (ABNORMAL) Microscopic Manual (05/10/2018 1:59 PM LEATHER TOGGLER) athologist Signature White Blood 4-10 /hpf 05/10/2018 [facility] Cells 2:24 PM [facility]MaimaibaoAL[facility] LAB Comment: ----REFERENCE VALUE---- Males: 0-3 Females: 0-10 Unknown: 0-10 Red Blood Cells Occ-2 0 - 2 /hpf 05/10/2018 2:24 PM [facility]ATHER TOGGLER [facility]ITALVenueSpotAL[facility] LAB Squamous Cells 4-10 /hpf 05/10/2018 2:24 PM LEATHER TOGGLER [facility] LAB Bacteria Present (A) None Seen 05/10/2018 2:24 PM [facility] LAB Specimen Anatomical Collection Method Collection Time Receive d Time (Source) Location / / Volume Laterality Urine 05/10/2018 1:59 PM 9 2:13 LEATHER TOGGLER PM LEATHER TOGGLER Patricia Hill M.D. LAB URINE ORDERABLES Performing Organization Address City/[facility] Phon e Number [facility] [address] [place] [address] LAB (ABNORMAL) Urinalysis with Microscopic if Indicated (05/10/2018 1:59 PM LEATHER TOGGLER) athologist Signature Source Midstream 05/10/2018 [facility] 2:[address] [facility] [email or web address] LAB Clarity Clear Clear 05/10/2018 [facility] 2:[address] [facility] [email or web address] [facility] LAB Color Yellow 05/10/2018 [facility] 2:[address] [facility] [email or web address] LAB Comment: ----REFERENCE VALUE---- Colorless Yellow Faye Blood Trace (A) Negative 05/10/2018 2:13 PM [facility]ITAL[facility]enueSpotULT [place] B Nitrite Negative Negative 05/10/2018 2:13 PM [facility] B Leukocyte Esterase Small (A) Negative 05/10/2018 2:13 P M LEATHER TOGGLER [facility] B Protein Negative mg/dL 05/10/2018 2:13 PM LEATHER TOGGLER [facility] B Comment: ----REFERENCE VALUE---- Negative Trace Glucose Negative Negative mg/dL 05/10/2018 2:13 PM [facility]- Mirror DigitalIBAULT LAB Ketones, QI(U) Negative Negative mg/dL 05/10/2018 2:13 PM Verna [facility] LAB Bilirubin Negative Negative 05/10/2018 2:13 PM [facility] LAB pH 6.5 5.0 - 8.0 05/10/2018 2:13 PM [facility] LAB Specific Whitman <=1.005 1.001 - 1.035 05/10/2018 2:13 PM [facility] LAB Urobilinogen 0.2 0.2 - 1.0 mg/dL 05/10/2018 2:[address] [facility]- Mirror DigitalIBACay[facility]Tech LAB Specimen Anatomical Collection Method Collection Time Receive d Time (Source) Location / / Volume Laterality Urine (Urine, 05/10/2018 1:59 PM 05/10/19 19 2:13 Clean Catch) LEATHER TOGGLER PM LEATHER TOGGLER Patricia Hill M.D. LAB URINE ORDERABLES Performing Organization Address City/[facility]/ZIP Code Phon e Number [facility] Mirror DigitalIBAULT [address] [place] [address] LAB Hemoglobin A1c (05/10/2018 11:46 AM LEATHER TOGGLER) P athologist Signature Hemoglobin A1c, 4.8 4.2 - 5.6 05/10/2018 [facility] B % 2:[address] [facility] [place] LAB Specimen Anatomical Collection Method Collection Time Receive d Time (Source) Location / / Volume Laterality Blood (Blood, 05/10/2018 11:46 05/10/2018 1:14 Venous) AM LEATHER TOGGLER PM LEATHER TOGGLER Patricia Hill M.D. LAB BLOOD ADD-ON Performing Organization Address City/[facility]/ZIP [facility] Phon e Number [facility] VenuuATONNA [address] [place] [address] LAB (ABNORMAL) Hepatic Function Panel (05/10/2018 11:46 AM [facility]) Patholo gist Method Time Signature Bilirubin, Total, S 0.3 <=1.2 05/10/2018 [facility] mg/dL 2:22 PM [facility] LAB Bilirubin, Direct, S <0.2 0.0 - 0.3 05/10/2018 [facility] mg/dL 2:43 PM [facility] LAB Aspartate 122 (H) 8 - 43 05/10/2018 [facility] Aminotransferase U/L 2:22 PM [facility] LAB Alanine 112 (H) 7 - 45 05/10/2018 [facility] Aminotransferase U/L 2:22 PM [facility] LAB Alkaline 113 (H) 35 - 104 05/10/2018 [facility] Phosphatase, S U/L 2:22 PM [facility] LAB Albumin, S 5.0 3.5 - 5.0 05/10/2018 [facility] g/dL 2:22 PM [facility] LAB Protein, Total, S 7.0 6.3 - 7.9 05/10/2018 [facility] g/dL 2:22 PM [facility] LAB Specimen Anatomical Collection Method Collection Time Receive d Time (Source) Location / / Volume Laterality Blood (Blood, 05/10/2018 11:46 05/10/2018 1:13 Venous) AM LEATHER TOGGLER PM LEATHER TOGGLER aPtricia Hill M.D. LAB BLOOD ADD-ON Performing Organization Address City/State/ZIP Code Phon e Number [facility] [address] [place] [id number] LAB BMP (Basic Metabolic Panel) (05/10/2018 11:46 AM [facility]) P athologist Signature Potassium, S 4.8 3.6 - 5.2 05/10/2018 [facility] mmol/L 2:22 PM [facility] LAB Sodium, S 143 135 - 145 05/10/2018 [facility] mmol/L 2:22 PM [facility] LAB Chloride, S 105 98 - 107 05/10/2018 [facility] mmol/L 2:22 PM [facility] [place] [facility] Bicarbonate, S 25 22 - 29 05/10/2018 [facility] mmol/L 2:22 PM [facility] Anion Gap 13 7 - 15 05/10/2018 [facility] 2:22 PM [facility] BUN (Blood Urea 10 6 - 21 05/10/2018 [facility] Nitrogen), S mg/dL 2:22 PM [facility] Creatinine 0.82 0.59 - 05/10/2018 [facility] 1.04 mg/dL 2:22 PM [facility] eGFR-Non >90 >=60 05/10/2018 [facility] Black/ mL/min/BSA 2:22 PM [facility] Argentine [place] LAB Comment: ----ADDITIONAL INFORMATION---- Estimated GFR calculated using the 2009 CKD_EPI creatinine equation. eGFR-Black/ >90 >=60 mL/min/BSA 2018 2:22 PM [facility] LAB Comment: ----ADDITIONAL INFORMATION---- Estimated GFR calculated using the 2009 CKD_EPI creatinine equation. Calcium, Total, S 9.8 8.6 - 10.0 mg/dL 05/10/2018 2 :22 PM [facility] Glucose, S 102 70 - 140 mg/dL 05/10/2018 2:22 PM [facility] LAB Specimen Anatomical Collection Method Collection Time Receive d Time (Source) Location / / Volume Laterality Blood (Blood, 05/10/2018 11:46 05/10/2018 1:13 Venous) AM LEATHER TOGGLER PM LEATHER TOGGLER Patricia Hill M.D. LAB BLOOD ADD-ON Performing Organization Address City/State/ZIP Code Phon e Number [facility] V[employer]AT[facility]NA [address] [place] [address] LAB (ABNORMAL) CBC with Differential, Blood (05/10/2018 11:46 AM [facility]) [facility] Method Time Signature Hemoglobin 13.9 11.6 - 05/10/2018 [facility] 15.0 g/dL 11:[address] [facility] [place] LAB Hematocrit 42.1 35.5 - 05/10/2018 [facility] 44.9 % 11:54 AM [facility] LAB Erythrocytes 3.92 3.92 - 05/10/2018 [facility] 5.13 11:54 AM [facility] HEALTH x10(12)/L SYSTEM- [email or web address] LAB MCV 107.4 (H) 78.2 - 05/10/2018 [facility] 97.9 fL 11:54 AM [facility] LAB RBC Distrib Width 12.9 12.2 - 05/10/2018 [facility] 16.1 % 11:54 AM [facility] LAB Platelet Count 257 157 - 371 05/10/2018 [facility] x10(9)/L 11:54 AM [facility] LAB Leukocytes 6.5 3.4 - 9.6 05/10/2018 [facility] x10(9)/L 11:54 AM [facility] LAB Neutrophils 4.24 1.56 - 05/10/2018 [facility] 6.45 11:54 AM [facility] Canevaflor x10(9)/L SYSTEMBuildForge LAB Lymphocytes 1.32 0.95 - 05/10/2018 [facility] 3.07 11:54 AM [facility] HEALTH x10(9)/L SYSTEMBuildForge LAB Monocytes 0.71 0.26 - 05/10/2018 [facility] 0.81 11:54 AM [facility] Canevaflor x10(9)/L SYSTEM- [email or web address] LAB Eosinophils 0.17 0.03 - 05/10/2018 [facility] 0.48 11:54 AM [facility] HEALTH x10(9)/L SYSTEM- [email or web address] LAB Basophils 0.01 0.01 - 05/10/2018 [facility] 0.08 11:54 AM [facility] HEALTH x10(9)/L SYSTEM- [email or web address] LAB Specimen Anatomical Collection Method Collection Time Receive d Time (Source) Location / / Volume Laterality Blood (Blood, 05/10/2018 11:46 05/10/2018 Venous) AM LEATHER TOGGLER 11:48 AM LEATHER TOGGLER Patricia Hill M.D. LAB BLOOD ADD-ON Performing Organization Address City/State/ZIP Code Phon e Number [facility] [address] [place] [address] LAB CRP (C-Reactive Protein) (05/10/2018 11:43 AM LEATHER TOGGLER) P athologist Signature C-Reactive 3.3 <=8.0 mg/L 05/10/2018 [facility] Protein (CRP), 9:59 PM LEATHER TOGGLER [facility] LAB Specimen Anatomical Collection Method Collection Time Receive d Time (Source) Location / / Volume Laterality Blood (Blood, 05/10/2018 11:43 05/10/2018 9:34 Venous) AM LEATHER TOGGLER PM LEATHER TOGGLER Patricia Hill M.D. LAB BLOOD ADD-ON Performing Organization Address City/State/ZIP Code Phon e Number [facility]- [address] [place] [address] D[place] LAB Sedimentation Rate (05/10/2018 11:43 AM LEATHER TOGGLER) Analysis Performed At Patho logist Time Signature Sedimentation 3 0 - 29 05/10/2018 [facility] Rate, B mm/1 h 4:01 PM [facility] LAB Specimen Anatomical Collection Method Collection Time Receive d Time (Source) Location / / Volume Laterality Blood (Blood, 05/10/2018 11:43 05/10/2018 2:07 Venous) AM LEATHER TOGGLER PM LEATHER TOGGLER Patricia Hill M.D. LAB BLOOD ADD-ON Performing Organization Address City/State/ZIP Code Phon e Number [facility]- [facility] [address] [place] [address] LAB documented in this encounter Visit Diagnoses Diagnosis Arthritis Rheumatoid (HCC) - Primary Reflux Esophageal Bipolar I Disorder (HCC) Abuse Tobacco Smoking Alcohol Moderate Or Severe Use Disorder (Dependence) Uncomplicated (HCC) Chronic Gastric Ulcer Without Hemorrhage Or Perforation Impaired Fasting Glucose Change In Bowel Habit Obesity Body Mass Index 30-39.9 Adult Nicotine Dependence Cigarettes With Othe r Nicotine Induced Disorder Infection Urinary Tract documented in this encounter Additional Health Concerns Assessment Noted Time PHQ-9 Depression Total Score: 6 04/03/2017 9:36 AM LEATHER TOGGLER documented as of this encounter Care Teams Atomic Welder Relationship Specialty Start Date End Date Zoë Nick, NON DESTRUCTIVE TESTING SPECIALIST, C.N.P. PCP - General Family Medicine 11/19/17 11/29/20 [address] [address] documented as of this encounter
--- OUTSIDE RECORDS SUMMARY | 2022-02-02 11:02 | XMS_ITS | Encounter Summary ---
:1980 Author Organization [facility] Address [address] [place] [address] Care Team Providers Name Role Phone Zoë Nick WEAVER NEEDLE LOOM, C.N.P. Primary Care Provider [phone] Encounter Details Date Type Department Care Team Description 06/06/2018 Orders Only [facility] PCP [facility] MNT Zoë Nick, A PRN, C.N.P. [address] [place], [place] [phone] (Wo rk) Social History Tobacco Use Types [...] or relatives? How often do you attend mormon or Never 2019 hinduism services? 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 PCP - General Family Medicine 11/19/17 11/29/[address] [phone] documented as of this encounter
--- OUTSIDE RECORDS SUMMARY | 2022-02-02 11:02 | XMS_ITS | Encounter Summary ---
:1980 Author Organization [facility] Address [address] [place] [address] Care Team Providers Name Role Phone Zoë Nick APRN, C.NDallas Primary Care Provider [phone] Reason for Referral Outpatient (Routine) - Closed Specialty Diagnoses / Procedures Referred By Contact Refer red To Contact Obstetrics and Jesus Collins M.D. [facility] Gynecology [address] [place] [address] Referral ID Status Reason Start Date Expiration Date Visits Requ ested Visits Authorized [id number] Closed 05/07/2019 05/06/2020 1 1 NESS INFORMATION ANALYST Encounter Details Date Type Department Care Team Description 05/07/2019 Orders Only Department of Obstetrics and Jesus Collins M.D. Gynecology in [place], [place] [address] [place] [address] Social History Tobacco Use Types Packs/Day [...] do you attend religion or Never 2019 pentecostalism services? Do you belong to any clubs [...] and Outpatient Referral Routine Expect ed: Gynecology Post Op 0 (clinic) (Approximate), Expires: 05/07/2022 documented as of this encounter Visit Diagnoses Not on filedocumented in this encounter Additional Health Concerns Assessment Noted Time PHQ-9 Depression Total Score: 21 04/07/2019 8:00 PM CS T documented as of this encounter Care Teams Step Down Specialist Relationship Specialty Start Date End Date Zoë Nick, MEDICAL COLLECTIONS SPECIALIST, C.N.P. PCP - General Family Medicine 11/19/17 11/29/[address] [phone] documented as of this encounter
--- OUTSIDE RECORDS SUMMARY | 2022-02-02 11:02 | XMS_ITS | Encounter Summary ---
:1980 Author Organization [facility] Address [address] [place] [address] Care Team Providers Name Role Phone Zoë Nick APRN C.NSarahPSarah Primary Care Provider [phone] Encounter Details Date Type Department Care Team Description 11/25/2018 Nurse Triage Department of Gloria Dumont, Medicine, [facility], in M.S.N., R.N. [place], [place] [address] [place] [address] Social History Tobacco Use Types Packs/Day Years [...] do you attend christian or Never 2019 alevism services? Do you [...] Depression Total Score: 6 04/03/2017 9:36 AM METER REPAIRER HELPER documented as of this encounter Care Teams Capsule Machine Operator Relationship Specialty Start Date End Date Zoë Nick APRN, C.N.P. PCP - General Family Medicine 11/19/17 11/29/[address] [address] documented as of this encounter
--- OUTSIDE RECORDS SUMMARY | 2022-02-02 11:02 | XMS_ITS | Encounter Summary ---
:1980 Author Organization [facility] Address [address] [place] [address] Care Team Providers Name Role Phone Zoë Nick APRN, C.N.P. Primary Care Provider [phone] Encounter Details Date Type Department Care Team Description 05/02/2019 Clinical Communication Department of Bibi Ocampo, Medicine, [place] [facility], C[facility], in [facility] [address] [place], [place] [address] [facility] [address] [place], [place] [phone] [address] (Work) [phone] Social History Tobacco Use Types Packs/Day Years [...] or relatives? How often do you attend baptist or Never 2019 episcopalian services? Do you belong to any clubs or No 01/29/2019 organizations such as baptist groups, unions, fraternal or athletic groups, or [...] this encounter Miscellaneous Notes Telephone Encounter - Jackelyn Bella L.P.NSarah - 05/05/2019 11:10 AM ELECTRICIAN BUS SUBJECTIVE CHIEF COMPLAINT / REASON FOR CALL No chief complaint on file. PLAN The following information was provided: Notified Marlin Camp would get her in an she is scheduled Wed Information/Education: patient/caller able to teach back The following references were used: provider Sandoval TRICIAN BUS Telephone Encounter - Jackelyn Bella L.P.N. - 05/02/2019 10:29 AM ELECTRICIAN BUS Marlin is questioning what she can do prior to her obgyn appt on the ... her cyst has gotten bigger even since she has seen you this week and is becoming very uncomfortable, she is wondering if it can be drained if need be??? 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 (for symptom based concerns): Action Needed: please call pt and advise Name of Medication (if relevant): TRICIAN BUS documented in this encounter Plan of Treatment Not on filedocumented as of this encounter Visit Diagnoses Not on filedocumented in this encounter Additional Health Concerns Assessment Noted Time PHQ-9 Depression Total Score: 21 04/07/2019 8:00 PM CS T documented as of this encounter Care Teams Stock Letterer Relationship Specialty Start Date End Date Zoë Nick, TIM, C.N.P. PCP - General Family Medicine 11/19/17 11/29/20 [address], [place] [phone] documented as of this encounter
--- OUTSIDE RECORDS SUMMARY | 2022-02-02 11:02 | XMS_ITS | Encounter Summary ---
:1980 Author Organization [facility] Address [address] [place] [address] Care Team Providers Name Role Phone Zoë Nick APRN CSarahNSarahPSarah Primary Care Provider [phone] Reason for Visit Reason Comments Cyst in vaginal/groin area x 6 mo nths - 1 1/2 months- more uncomfortable Appointment Request (Routine) - Closed Specialty Diagnoses / Procedures Referred By Contact Refer red To Contact Family Medicine Referral ID Status Reason Start Date Expiration Date Visits Requ ested Visits Authorized [id number] Closed 01/24/2019 01/24/2020 1 1 Encounter Details Date Type Department Care Team Description 01/24/2019 Office Visit Urgent [facility] [place] Anjum Cornell (Primary Dx) [address] [place], [place] [address] [address] [place], [place] [phone] [address] Social History Tobacco Use Types Packs/Day [...] or relatives? How often do you attend bahai or Never 2019 lutheran services? Do you belong to any clubs or No 01/29/2019 organizations such as bahai groups, unions, fraCarJump or athletic groups, or school groups? How [...] Sign Reading Time Taken Comments Blood Pressure 131/66 01/24/2019 3:00 PM CDT Pulse 103 01/24/2019 3:00 PM CDT Temperature 37 ??C (98.6 ??F) 01/24/2019 3:00 PM CDT Respiratory Rate 16 01/24/2019 3:00 PM CDT Oxygen Saturation - - Inhaled Oxygen Concentration - - Weight 92.8 kg (204 lb 9.4 oz) 01/24/2019 3:00 PM CDT Height - - Body Mass Index 33.08 02/13/2018 9:54 AM STATEMENT PROCESSOR documented in this encounter Progress Notes Kraig Martinez P.A.-Jonathan., P.A. - 01/24/2019 3:00 PM CDT SUBJECTIVE Marlin Plummer is an 38 y.o. woman who presents with vaginal symptoms including pain in right labrum. Onset of symptoms started 1.5 weeks ago, worse in the last 2 day(s). Pt denied fever, abdominalpain, pelvic pain, dysuria, urinary frequency, urinary urgency, diarrhea, constipation, nausea and vomiting. She reports that she has had a pea size lesion on the right labrum for several months. Pt states that the lesion quadrupled in size in the past 2 days. Predisposing factors: denies knowledge of risky exposure STI hx: none Sexually active: not sexually active currently Current Outpatient Medications on File Prior to Visit Medication Sig Dispense Refill ??? acetaminophen (TYLENOL) 500 mg capsule Take by mouth every 6 (six) hours as needed for pain. ??? tmudjdg-xzlubaqbeaefa-twabrhyj (EXCEDRIN MIGRAINE) 250-250-65 mg per tablet Take 1 tablet by mouth every 6 (six) hours as needed for pain. ??? bismuth subsalicylate (PEPTO BISMOL) 262 mg/15 mL suspension Take 30 mL by mouth every 6 (six) hours as needed for indigestion. ??? diphenhydrAMINE (BENADRYL) 50 mg capsule Take 25 mg by mouth every 4 (four) hours. ??? disulfiram (ANTABUSE) 250 mg tablet Take 250 mg by mouth daily. ??? docusate sodium (COLACE) 100 mg capsule Take 100 mg by mouth daily. ??? fluconazole (DIFLUCAN) 150 mg tablet Take 1 tablet (150 mg total) by mouth every third day. Repeat in 3 days if symptoms persist. 2 tablet 0 ??? folic acid 1 mg tablet Take 1 mg by mouth daily. ??? gabapentin (NEURONTIN) 300 mg capsule Take 300 mg by mouth 3 (three) times a day. ??? ibuprofen (ADVIL,MOTRIN) 200 mg capsule Take 600 mg by mouth every 6 (six) hours as needed for pain. ??? lamoTRIgine (for_LaMICtal) 200 mg tablet Take 200 mg by mouth 2 (two) times a day. ??? levonorgestrel (MIRENA) 20 mcg/24 hr (5 years) IUD 1 each by intrauterine route once. Place 06/01/2017 to be removed in 5 years ??? lidocaine (LMX) 4 % cream Apply 1 application topically 3 (three) times a day as needed for pain. ??? lithium carbonate (LITHOBID) 300 mg ER tablet Take 1,200 mg by mouth at bedtime. 0 ??? loperamide (IMODIUM A-D) 2 mg capsule Take 2 mg by mouth 4 (four) times a day as needed for diarrhea. ??? melatonin 3 mg tablet Take 3 mg by mouth at bedtime. ??? multivitamin capsule Take 1 capsule by mouth daily. ??? naltrexone (DEPADE) 50 mg tablet Take 50 mg by mouth daily. ??? OLANZapine (ZyPREXA) 10 mg tablet Take 10 mg by mouth daily. 1 ??? pantoprazole (PROTONIX) 40 mg EC tablet Take 1 tablet (40 mg total) by mouth every morning before breakfast. 90 tablet 3 ??? propranolol (INDERAL) 10 mg tablet 0 ??? propranolol (INDERAL) 10 mg tablet Take 10 mg by mouth as needed. ??? rizatriptan (MAXALT) 10 mg tablet Take 10 mg by mouth. ??? sennosides (senna) 8.6 mg tablet Take 8.6 mg by mouth daily. ??? thiamine (vitamin B-1) 100 mg tablet Take 100 mg by mouth daily. ??? UNABLE TO FIND Med Name: Julia 550mg ??? alum-mag hydroxide-simeth 225-200-25 mg/5 mL suspension Take 30 mL by mouth. ??? cetirizine (for_ZyrTEC) 10 mg tablet Take 10 mg by mouth daily as needed. ??? clindamycin (for_CLEOCIN T) 1 % lotion Apply 1 application topically 2 (two) times a day as needed. ??? traZODone (DESYREL) 50 mg tablet Take 1 tablet (50 mg total) by mouth at bedtime as needed for sleep. 90 tablet 1 No current facility-administered medications on file prior to visit. Allergies Allergen Reactions ??? Eszopiclone Nausea And Vomiting ??? Latex Other (see comments) ??? Morphine GI intolerance ??? Naproxen Sodium Other (see comments) ??? Piroxicam Rash Social History Tobacco Use ??? Smoking status: Current Every Day Smoker Packs/day: 1.00 Types: Cigarettes ??? Smokeless tobacco: Never Used Substance Use Topics ??? Alcohol use: Yes Social History Substance and Sexual Activity Sexual Activity Yes ??? Partners: Male ??? control/protection: Vasectomy OBJECTIVE: BP 131/66 (BP Location: Right arm, Patient Position: Sitting, Cuff Size: Large) Pulse 103 Temp 37 ??C (Oral) Resp 16 Wt 92.8 kg ? No BMI 33.08 kg/m?? General: healthy, alert and oriented x 3, no distress, cooperative, responds appropriately to auditory and visual stimmuli Lungs: Lungs clear bilaterally Heart: regular rate and rhythm Abdomen: Abdomen soft, non-tender. Bowel sounds normal. No masses, organomegaly, negative CVA tenderness Skin: Skin color, texture, turgor normal. No rashes or lesions Pelvic: exam chaperoned by female medical services assistant, Bartholin's cyst at 7 o'clock, size 4 cm, fluctuant, tender, mild erythema noted. Diagnostics No results found for this or any previous visit (from the past 24 hour(s)). ASSESSMENT and PLAN 1. Abscess Bartholin's Duct - Bacterial Culture, Aerobic + Susc - cephalexin (Keflex) 500 mg capsule; Take 1 capsule (500 mg total) by mouth every 6 (six) hours for10 days. Dispense: 40 capsule; Refill: 0 - Incision and Drainage I&D per procedure note. Pt reported improvement if sxs. Follow up with you primary care provider if symptoms do not improve in 2-3 days, worsen, or new symptoms develop. Patient Education: Discussed normal vaginal physiology. Apply heat, warm water soaks. Side effects of the prescribed/recommended medications discussed. Questions answered. Kraig Martinez P.A.-C., P.A. documented in this encounter Procedure Notes Kraig Martinez P.A.-C., PLucita. - 01/24/2019 3:00 PM CDTAssociated Order(s): Incision and Drainage Post-Procedure Diagnose(s): Abscess Bartholin's Duct Incision and Drainage Date/Time: 01/24/2019 5:13 PM Performed by: Kraig Martinez P.A.-C., P.ASarah Authorized by: Kraig Martinez P.A.-C., P.ASarah Care team members present 1. Kraig Martinez P.A.-C., P.ASarah 2. Mague Santa L.P.N. PROCEDURE DETAILS Complexity: Simple Ultrasound guidance: no Needle aspiration: no Incision types: Stab incision Incision length (cm): 1 Scalpel blade: 11 Drainage: Purulent and bloody Drainage amount: Copious Wound treatment: Wound left open CONSENT Consent obtained: verbal The benefits, risks and alternatives to the procedure and the potential need for sedation or anesthesia as well as the names, roles, and responsibilities of healthcare team members performing significant interventional tasks were discussed with the patient and/or decision maker. UNIVERSAL PROTOCOL All relevant documentation and testing were reviewed and available. All required blood products, implants, devices and or special equipment were made available as applicable. Pre-procedure verificationwas conducted and the correct site was marked if required. A fire risk assessment was done as applicable. The procedural time-out was conducted prior to performing the procedure and confirmed in a procedural pause. PRE PROCEDURE DETAILS Indication: Bartholin cyst Location: Anogenital Anogenital location: Bartholin's gland Length (cm): 4 Site preparation: Povidone-iodine SEDATION / ANESTHESIA Anesthesia method: local infiltration Local infiltrate type: lidocaine 2% w/o epi POST PROCEDURE DETAILS Procedure completed successful: yes Tetanus status up to date: Up to date Complications: no immediate complications COMMENTS Dressing applied documented in this encounter Plan of Treatment Not on filedocumented as of this encounter Procedures Procedure Name Priority Date/Time Associated Diagnosis Comme nts BACTERIAL CULTURE, STAT 01/24/2019 4:22 PM Abscess Bartholi n's Results for this AEROBIC + SUSC CDT Duct procedure are in the results section. INCISION AND Routine 01/24/2019 3:00 PM Abscess Bartholin's Re sults for this DRAINAGE CDT Duct procedure are i n the results section. documented in this encounter Results Bacterial Culture, Aerobic + Susc (01/24/2019 4:22 PM CDT) Analysis Performed At Patho logist Time Signature Bacterial Usual 01/26/2019 TO Culture, Jeanne. 10:07 AM CDT Aerobic + Susc Specimen Anatomical Collection Method Collection Time Receive d Time (Source) Location / / Volume Laterality Drainage (Labia, 01/24/2019 4:22 PM 01/24 6:47 Right) CDT PM CDT Comment: Specimen Source Site: Drainage Kraig Martinez P.A.-C. LAB MICROBIOLOGY - GENERA L ORDERABLES Performing Organization Address City/State/ZIP Code Phon e Number [facility]- [address] [place] [address] [id number] [place] [address] [address] PROCEDURE PLACEHOLDER (01/24/2019 3:00 PM CDT) Narrative MMODAL - 01/24/2019 3:00 PM CDT Kraig Martinez P.A.-C., PLucita. ? 01/24/2019 ??5:27 PM Incision and Drainage Date/Time: 01/24/2019 5:13 PM Performed by: Kraig Martinez P.A .-C., PHiram Authorized by: Kraig Martinez P. A.-C., P.ASarah Care team members present 1. Kraig Martinez P.A.-C., PHiram 2. Mague Santa L.P.N. PROCEDURE DETAILS Complexity: ??Simple Ultrasound guidance: no ?? Needle aspiration: no ?? Incision types: ??Stab incision Incision length (cm): ??1 Scalpel blade: ??11 Drainage: ??Purulent and bloody Drainage amount: ??Copious Wound treatment: ??Wound left open CONSENT Consent obtained: verbal The benefits, risks and alternatives to the procedure and the potential need for sedation or anesthesia as well as the names, roles, and responsibilities of healthcare team memb ers performing significant interventional tasks were discussed with the patient and/or decision maker. UNIVERSAL PROTOCOL All relevant documentation and testing w ere reviewed and available. All required blood products, implants, devic es and or special equipment were made available as applicable. Pre-proced ure verification was conducted and the correct site was marked if required. A fire risk assessment was done as applicable. The procedural time-out w as conducted prior to performing the procedure and confirmed in a procedu ral pause. PRE PROCEDURE DETAILS Indication: ??Bartholin cyst Location: ??Anogenital Anogenital location: ??Bartholin's gland Length (cm): ??4 Site preparation: ??Povidone-iodine SEDATION / ANESTHESIA Anesthesia method: local infiltration Local infiltrate type: lidocaine 2% w/o epi POST PROCEDURE DETAILS Procedure completed successful: yes ?? Tetanus status up to date: ??Up to date Complications: no immediate complication s ?? COMMENTS Dressing applied Kraig Martinez P.A.-C. PROCEDURE/MINOR SURGICAL ORDERABLES Performing Organization Address City/State/ZIP Code Phon e Number MMODAL MMODAL NA documented in this encounter Visit Diagnoses Diagnosis Abscess Bartholin's Duct - Primary documented in this encounter Additional Health Concerns Assessment Noted Time PHQ-9 Depression Total Score: 6 04/03/2017 9:36 AM STATEMENT PROCESSOR documented as of this encounter Care Teams Lockstitch Sleeve Maker Relationship Specialty Start Date End Date Zoë Nick, TIM, C.N.P. PCP - General Family Medicine 11/19/17 11/29/20 [address] [address] documented as of this encounter
--- OUTSIDE RECORDS SUMMARY | 2022-02-02 11:02 | XMS_ITS | Encounter Summary ---
:1980 Author Organization [facility] Address [address] [place] [address] Care Team Providers Name Role Phone Zoë Nick APRN C.N.P. Primary Care Provider [phone] Encounter Details Date Type Department Care Team Description 06/26/2018 Clinical Communication Department of Yi [facility] Obstetrics and TIM Dominguez C.N.PSarah Gynecology in [address] [place], [place] [address] [facility] [address] [place], [place] [phone] [address] (Work) [phone] Social History Tobacco Use Types Packs/Day Years [...] do you attend holiness or Never 2019 sabianist services? Do you [...] Telephone Encounter - Raisa Root R.N. - 06/26/2018 11:38 AM CDT Images from the original note were not included. Yi Kaye APRN, C.N.P. ??You 5 minutes ago (11:32 AM) I have canceled the order for the oral metronidazole, and Re sent the order for Metrogel. ??Could you please call [facility] in [place], and let them know to cancel the order for the oral metronidazole. ??Thanks so much. (Routing comment) Marlin was notified and prescription was confirmed with Katie at [facility]. Telephone Encounter - Raisa Root R.N. - 06/26/2018 11:29 AM CDT Images from the original note were not included. Yi Kaye APRN, C.N.P. ??You 2 minutes ago (11:25 AM) Please let patient know that I have sent in a prescription for metronidazole for management of her bacterial vaginosis. ??She should take 1 tablet twice daily for 7 days. ??She should not consume alcohol while taking this medication. ??If that is a problem with her vacation coming up, please let me know. ??I could order the vaginal gel instead if she would rather. ??Thanks (Routing comment) Marlin would prefer the gel, if that is not a problem. Thanks Telephone Encounter - Raisa Root R.N. - 06/26/2018 9:03 AM CDT Marlin states that for the past 4 days she has noticed a fishy odor from vaginal area. She does not wear underwear so is not sure about discharge. Looks like last visit with you was 06/06/17. She is wondering if she could get a prescription without an appointment, due to costs? She is leaving on vacation next week and would like to get this addressed this week. Thanks Telephone Encounter - Boone Marysemarcela Fontenot - 06/26/2018 8:47 AM CDT Reason for Communication: Pt is having symptoms of a vaginal infection for 4 days. She said that there is discharge and odor and would like to discuss options Current Can Nursing/Provider leave a detailed message: Yes Did the patient refuse triage through Nurse line? (for symptom based concerns): Action Needed: Please call pt to advise as to next steps or if she can be prescribed a medication without an appt. Name of Medication (if relevant): documented in this encounter Plan of Treatment Not on filedocumented as of this encounter Visit Diagnoses Not on filedocumented in this encounter Additional Health Concerns Assessment Noted Time PHQ-9 Depression Total Score: 6 04/03/2017 9:36 AM HYDROTEL OPERATOR documented as of this encounter Care Teams Broacher Relationship Specialty Start Date End Date Zoë Nick APRN, C.N.P. PCP - General Family Medicine 11/19/17 11/29/[address] [address] documented as of this encounter
--- OUTSIDE RECORDS SUMMARY | 2022-02-02 11:02 | XMS_ITS | Encounter Summary ---
:1980 Author Organization [facility] Address [address] [place] [address] Care Team Providers Name Role Phone Zoë Nick APRN, C.N.P. Primary Care Provider [phone] Encounter Details Date Type Department Care Team Description 02/11/2018 Clinical Communication Department of Bibi Ocampo, Medicine, [place] TIM, C.N.P. [facility], [place] [address] [place], [place] [address] [address] [place], [place] [phone] [address] (Work) [phone] Social History Tobacco Use Types Packs/Day Years [...] or relatives? How often do you attend yazidism or Never 2019 tenriism services? Do you belong to any clubs or No 01/29/2019 organizations such as yazidism groups, unions, fraternal or athletic groups, or [...] this encounter Miscellaneous Notes Telephone Encounter - Gabriela Villavicencio R.N. - 02/12/2018 10:32 AM FUNERAL HOME ASSISTANT SUBJECTIVE REASON FOR CALL Post-Hospital follow-up phone call with patient after Marlin Plummer discharge on 02-11-18 for prepyloric gastric ulcers. General Health Marlin Plummer notes today she is feeling better than when she left the hospital. Patient confirms that the condition for which she was admitted has improved. Home management assessment post discharge: Patient states she is doing okay, but has a few questionsand concerns. has a pain score of 5 - its intermittent pain. How long should she let it go before coming in? What can she take for pain. she took ibuprofen this am and I encouraged tylenol instead. still having black stools. No vomiting. Her pain score in hosp was 10. . Actions taken: home care instructions reinforced or provided Infection related to a resistant organism: no Surgical/Procedural Follow-up Medication Status Medication status assessment: is taking new medications as prescribed Medication management: Patient states medication is self managed. Patient's understanding of medication's side effects: Patient recalls and understands all side effects and reactions relating to new medication(s). Medications concerns: none Is patient taking any of the following: Controlled substances: none Taking as instructed: n/a Experiencing side effects: n/a Antibiotics: n/a Diabetic medications: n/a Anticoagulants: n/a Home Care/Equipment Home care ordered: no Activities of Daily Living Has activities of daily living changed since hospitalization: yes - Is taking it pretty slow. Ambulation Has ambulation changed since hospitalization: no Difficulty ambulating: no Follow-Up Appointment Follow-up appointment scheduled? yes Date of appointment: 02-13-18 Does patient plan to go to the appointment?: yes Concerns about getting to the appointment: issues getting to your appointment: none General Care and Feedback Actions: pain is better than the score of 10 in ER - it is now a 5 and intermittent. Denies vomiting. Has black stools as prior to hospitalization. Wonders how long she should let the pain go - I advised if it worsens to seek care in ER and or bleeding occurs. Also wonders if her lithium chould be ER or plain. Wonders if there if anything she can take for pain. Discussed signs and symptoms which would warrant calling provider and/or 911. Recommendations to be addressed at follow up visit: Check on her symptoms, her medical compliance and her drinking. She stated to me she hasn't been drinking. RAL HOME ASSISTANT Telephone Encounter - Rahel Ward - 02/11/2018 2:07 PM CST Patient has a hospital follow up scheduled on 02/13/2018 with Josh Vaz at 4:00. Patient is being discharged from [facility] 02/11/2018. Dx= GI bleed RAL HOME ASSISTANT documented in this encounter Plan of Treatment Not on filedocumented as of this encounter Visit Diagnoses Not on filedocumented in this encounter Additional Health Concerns Assessment Noted Time PHQ-9 Depression Total Score: 6 04/03/2017 9:36 AM FUNERAL HOME ASSISTANT documented as of this encounter Care Teams Fitness Trainer Relationship Specialty Start Date End Date Zoë Nick, TIM, C.N.P. PCP - General Family Medicine 11/19/17 11/29/[address] [phone] documented as of this encounter
--- OUTSIDE RECORDS SUMMARY | 2022-02-02 11:02 | XMS_ITS | Encounter Summary ---
:1980 Author Organization [facility] Address [address] [place] [address] Care Team Providers Name Role Phone Zoë Nick APRN, C.N.P. Primary Care Provider [phone] Reason for Visit Reason Comments Gynecologic Exam recheck lump Encounter Details Date Type Department Care Team Description 01/03/2018 Office Visit Department of Yi Kaye' s Gland Cyst (Primary Dx); Obstetrics and TIM Dominguez, C.N.P. Acute Vaginitis; Gynecology in [address] [facility] [place]; [place], [place] Deep Dyspareunia [address] [address] [place], [place] [phone] (Work) [phone] Social History Tobacco Use Types Packs/Day Years [...] or relatives? How often do you attend worship or Never 2019 congregational services? Do you belong to any clubs or No 01/29/2019 organizations such as worship groups, unions, fraternal or athletic groups, or [...] Sign Reading Time Taken Comments Blood Pressure 116/70 01/03/2018 9:51 AM CDT Pulse - - Temperature - - Respiratory Rate - - Oxygen Saturation - - Inhaled Oxygen Concentration - - Weight 90.2 kg (198 lb 13.7 oz) 01/03/2018 9:51 AM CDT Height - - Body Mass Index 32.73 12/18/2017 10:51 AM CDT documented in this encounter Progress Notes Yi Kaye, TIM, C.N.P. - 01/03/2018 10:00 AM CDT CHIEF COMPLAINT/REASON FOR VISIT Chief Complaint Patient presents with ??? Gynecologic Exam recheck lump HISTORY OF PRESENT ILLNESS Marlin is a 37 year old, para 1-2-1-3 female who is [...] recheck that. She also notes that she was recently on antibiotics to treat her hydradenitis suppurativa. She feelsas if she may have developed a yeast infection. She is experiencing vaginal and vulvar irritation and itching off and on over the last couple days. She notes that the antibiotic has been working well to treat her outbreaks on her groin. Her final concern for me today is surrounding painful intercourse and decreased libido. States that the last time she had sex with her was in September. She experienced pain with deep penetration. States that it felt like she got punched in her right ovary. States that there was crampy sharp pain that lasted for a few hours after intercourse. The pain then resolved and has not return. States she is afraid to have intercourse again. States she has history of ovarian cyst and is concerned that she may have an ovarian cyst at this time. She has also noticed a decrease in her sexual desire, as well as decreased response to her 's advances. This is very concerning for her because she loves her very much and wants to meet his needs. MEDICATIONS Current Outpatient Prescriptions Medication Sig Dispense Refill ??? cetirizine (for_ZyrTEC) 10 mg tablet Take 10 mg by mouth daily as needed. ??? clindamycin (for_CLEOCIN T) 1 % lotion Apply 1 application topically 2 (two) times a day as needed. ??? doxycycline (for_ADOXA) 100 mg tablet Take 1 tablet by mouth 2 (two) times a day as needed. ??? lamoTRIgine (for_LaMICtal) 200 mg tablet Take 200 mg by mouth daily. ??? lithium carbonate 300 mg tablet Take 900 mg by mouth at bedtime. ??? OLANZapine (for_ZyPREXA) 7.5 mg tablet Take 1 tablet by mouth daily. ??? propranolol (INDERAL) 10 mg tablet 0 ??? traZODone (DESYREL) 50 mg tablet Take 1 tablet (50 mg total) by mouth at bedtime as needed for sleep. 90 tablet 1 ??? estradiol (ESTRACE) 0.1 mg/g (0.01%) vaginal cream Insert 2 g into the vagina at bedtime. Insert2-3 nights per week. 42.5 g 1 ??? fluconazole (DIFLUCAN) 150 mg tablet Take 1 tablet (150 mg total) by mouth every third day. Repeat in 3 days if symptoms persist. 2 tablet 0 ??? raNITIdine (ZANTAC) 150 mg tablet Take 1 tablet (150 mg total) by mouth 2 (two) times a day. (Patient not taking: Reported on 01/03/2018 ) 180 tablet 3 No current facility-administered medications for this visit. [...] DELIVERY ??? VAGINAL DELIVERY VITAL SIGNS BP 116/70 Wt 90.2 kg BMI 32.73 kg/m?? DIAGNOSTICS Vaginitis panel obtained and pending. Endovaginal pelvic ultrasound ordered and scheduled. PHYSICAL EXAMINATION General: She is a well-appearing female in no acute distress. Pelvis: External genitalia appears mildly erythemic but otherwise normal. She does have 1.5 cm cystic structure noted in the area of the Bartholin's gland on her right side. The cyst is mobile and nontender. No erythema in this area. Upon speculum exam, vaginal mucosa appears erythemic with curdy discharge noted. Cervix is visualized and appears pink and intact. Mirena IUD strings are present protruding from the cervical os. Vaginitis panel obtained. Upon bimanual exam, uterus is small, mobile, nontender. Adnexa without masses or tenderness. IMPRESSION/REPORT/PLAN #1 Bartholin's Gland Cyst We spent time discussing options for management versus continued observation. At this point in time she is most interested in proceeding with continued observation. She will contact me if things are changing or if she has more concerns. #2 Acute Vaginitis Prescription for Diflucan was faxed to [facility]. Based on exam it appears she has a yeast infection. Vaginitis panel was obtained and she would like us to call her with those results when we have them. Phone number is [phone] and she has requested that I leave her a message with those results. States her phone is past Word protected and secure. #3 Depressed Libido We spent time discussing management and referral options for concerns surrounding decreased libido. She is most interested in proceeding with Estrace vaginal estrogen cream. We discussed the risks, benefits, side effects, and proper use. Prescription was faxed to [facility]. She will begin using a pproximately 2 g 2 nights per week. If she has concerns or problems she will contact me. #4 Deep Dyspareunia I have ordered an ultrasound to rule out ovarian cyst. I will plan to call her with those results and we will treat accordingly. At this point she has no additional concerns or questions and is agreeable to this plan of care. documented in this encounter Plan of Treatment Not on filedocumented as of this encounter Procedures Procedure Name Priority Date/Time Associated Diagnosis Comme nts VAGINITIS PANEL Routine 01/03/2018 11:02 AM Acute Vaginitis Re sults for this CDT procedure are i n the results section. documented in this encounter Results (ABNORMAL) Vaginitis Panel (01/03/2018 11:02 AM CDT) [facility] gist Method Time Signature Isi Positive (A) Negative 01/03/2018 [facility] species, DNA 2:26 PM CDT [facility] Gardnerella Negative Negative 01/03/2018 [facility] vaginalis, DNA 2:26 PM CDT [facility] Trichomonas Negative Negative 01/03/2018 [facility] vaginalis, DNA 2:26 PM CDT [facility] Specimen Anatomical Collection Method Collection Time Receive d Time (Source) Location / / Volume Laterality Swab (Vagina) 01/03/2018 11:02 01/03/2018 AM CDT 12:36 PM CDT Yi Kaye APRN, C.N.P. 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 PCP - General Family Medicine 11/19/17 11/29/[address] [address] documented as of this encounter
--- OUTSIDE RECORDS SUMMARY | 2022-02-02 11:02 | XMS_ITS | Encounter Summary ---
:1980 Author Organization [facility] Address [address] [place] [address] Care Team Providers Name Role Phone Zoë Nick APRN, C.N.P. Primary Care Provider [phone] Reason for Visit Reason Comments Abscess Bartholin cyst on right labr um was drained on 01/24/19 Appointment Request (Routine) - Closed Specialty Diagnoses / Procedures Referred By Contact Refer red To Contact Family Medicine Referral ID Status Reason Start Date Expiration Date Visits Requ ested Visits Authorized [id number] Closed 11/25/2018 11/25/2019 1 1 Encounter Details Date Type Department Care Team Description 01/29/2019 Office Visit Department of Family Zoë Nick Bar tholin's Gland Cyst (Primary Dx); Medicine, [place] TIM, C.N.P. Moderate Or Severe Use Disorder (Depende nce) Alcohol Remission (HCC); Clinic, in [place], [address] Need Vaccine Immunization Influenza [place], [place] [address] [address] [place], [place] [phone] (Work) [phone] Social History Tobacco Use Types Packs/Day Years [...] or relatives? How often do you attend congregation or Never 2019 anabaptist services? Do you belong to any clubs or No 01/29/2019 organizations such as congregation groups, unions, fraMonetsu or athletic groups, or school groups? How [...] Sign Reading Time Taken Comments Blood Pressure 120/64 01/29/2019 12:53 PM CDT Pulse 72 01/29/2019 12:53 PM CDT Temperature 36.6 ??C (97.9 ??F) 01/29/2019 12:53 PM CDT Respiratory Rate 18 01/29/2019 12:53 PM CDT Oxygen Saturation - - Inhaled Oxygen Concentration - - Weight 91.4 kg (201 lb 9.8 oz) 01/29/2019 12:53 PM CDT Height 167.6 cm (5' 6) 01/29/2019 12:53 PM CDT Body Mass Index 32.54 01/29/2019 12:53 PM CDT documented in this encounter Progress Notes Zoë Nick, TIM, C.N.P. - 01/29/2019 1:00 PM CDT SUBJECTIVE CHIEF COMPLAINT: Chief Complaint Patient presents with ??? Abscess Bartholin cyst on right labrum was drained on 01/24/19 HISTORY OF PRESENT ILLNESS: Marlin is here for follow-up urgent care visit on January 24, 2019 for drainage of infected Bartholin cyst. Wound was left open and has been draining. She is feeling much better. She states she completed a 30 day inpatient treatment program at [facility] in [place] for alcohol addiction. Shewas discharged on 2019. She will be starting outpatient treatment at [facility]. She also has a psychotherapist at [facility] in Psychiatry and Psychology. She has a psychiatrist in [place]. REVIEW OF SYSTEMS: The following systems were negative: Constitutional, Skin, Eyes, ENT, CV, Respiratory, GI, , Hematologic, Musculoskeletal, Neuro, Psych The following portions of the patient's history were reviewed and updated as appropriate: allergies,current medications, family history, medical history, social history, surgical history and problem list. ALLERGIES: Allergies Allergen Reactions ??? Eszopiclone Nausea And Vomiting ??? Latex Other (see comments) ??? Morphine GI intolerance ??? Naproxen Sodium Other (see comments) ??? Piroxicam Rash MEDICATIONS: Current Outpatient Medications: ??? acetaminophen (TYLENOL) 500 mg capsule, Take by mouth every 6 (six) hours as needed for pain., Disp: , Rfl: ??? psdokay-gavytmvjbsmfu-sphbzphk (EXCEDRIN MIGRAINE) 250-250-65 mg per tablet, Take 1 tablet by mouth every 6 (six) hours as needed for pain., Disp: , Rfl: ??? bismuth subsalicylate (PEPTO BISMOL) 262 mg/15 mL suspension, Take 30 mL by mouth every 6 (six) hours as needed for indigestion., Disp: , Rfl: ??? cephalexin (Keflex) 500 mg capsule, Take 1 capsule (500 mg total) by mouth every 6 (six) hours for 10 days., Disp: 40 capsule, Rfl: 0 ??? cetirizine (for_ZyrTEC) 10 mg tablet, Take [...] by mouth daily., Disp: , Rfl: ??? folic acid 1 mg tablet, Take [...] by mouth daily., Disp: , Rfl: OBJECTIVE VITAL SIGNS: Temperature: [36.6 ??C] 36.6 ??C Resp Rate: [18] 18 Blood Pressure: (120)/(64) 120/64 Pulse Rate: [72] 72 PHYSICAL EXAM: General: Well-developed, well-nourished, in no acute distress. Skin: Warm and dry. HEENT: TMs clear. Throat clear. Neck: Supple. No lymphadenopathy or thyromegaly. Heart: Regular rate and rhythm. S1, S2. No murmur. Lungs: Clear to auscultation. No wheezes or rales. Abdomen: Soft, nontender. No hepatosplenomegaly. Genitourinary: Bartholin cyst incision and drainage left inner labia, minimal amount of discharge. Extremities: Warm, dry. No peripheral edema. ASSESSMENT /PLAN: #1 Bartholin's Gland Cyst I and D performed in urgent care on January 24, 2019. Wound left open, minimal drainage. #2 Moderate Or Severe Use Disorder (Dependence) Alcohol Remission (HCC) Continue outpatient treatment at [facility]. She will be attending alcoholics anonymous meetings. [facility]. She scheduling follow-up with her psychiatrist in [place]. #3 Need Vaccine Immunization Influenza Influenza immunization given today. HEALTH MAINTENANCE: Due for Pap smear. 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 PCP - General Family Medicine 11/19/17 11/29/[address] [phone] documented as of this encounter
--- OUTSIDE RECORDS SUMMARY | 2022-02-02 11:02 | XMS_ITS | Encounter Summary ---
:1980 Author Organization [facility] Address [address] [place] [address] Care Team Providers Name Role Phone Zoë Nick APRN, C.N.P. Primary Care Provider [phone] Reason for Visit Reason Comments Cyst recurrent bartholin cyst Outpatient (Routine) - Closed Specialty Diagnoses / Procedures Referred By Contact Refer red To Contact Obstetrics and Diagnoses Bartholin's Gland Cyst Zoë Nick, [facility] Gynecology SUPERVISOR ROCKET [employer]OPELLANT [employer]ANT, C.N.P. [address], [place] [address] Referral ID Status Reason Start Date Expiration Date Visits Requ ested Visits Authorized [id number] Closed 04/28/2019 04/27/2020 1 1 Encounter Details Date Type Department Care Team Description 05/07/2019 Office Visit Department of Apple French Bartholin 's Gland Cyst (Primary Dx); Obstetrics and M, MSarahDSarah Screening For Venereal Disease; Gynecology in Pap Smear Exam [address] [address] Social History Tobacco Use Types Packs/Day [...] or relatives? How often do you attend catholic or Never 2019 confucianist services? Do you belong to any clubs or No 01/29/2019 organizations such as catholic groups, unions, [employer] or athletic groups, or school groups? How [...] Sign Reading Time Taken Comments Blood Pressure 98/66 05/07/2019 11:43 AM STEWARD/STEWARDESS LOUNGE Pulse - - Temperature - - Respiratory Rate - - Oxygen Saturation - - Inhaled Oxygen Concentration - - Weight 85.5 kg (188 lb 6.1 oz) 05/07/2019 11:43 AM STEWARD/STEWARDESS LOUNGE Height - - Body Mass Index 30.41 01/29/2019 12:53 PM CDT documented in this encounter Consult Notes Apple French M.D. - 05/07/2019 11:45 AM CST COUPON AND BOND COLLECTION CLERK CONSULT NOTE CHIEF COMPLAINT / REASON FOR VISIT Patient presents for Gynecology consultation at the request of her primary provider, Zoë Nick, for infection bartholin's cyst gland. HISTORY OF PRESENT ILLNESS Marlin Plummer is a 39 y.o. with No LMP recorded. (Menstrual status: Intrauterine Device). who presents for Gynecology consultation for infected bartholin cyst gland. Patient noted swellingat the right vulva area a few days ago. She has had this one other time in the fall and had it drained in urgent care. Prior to this she did not have a problem at all. She has Mirena Iud in for control and denies any bleeding or abnormal discharge. She is due for a pap smear. She would like something more definitive than drainage in office to resolve this bartholin's gland cyst. Denies history of pelvic infections or abnormal pap smears. Denies problems with intercourse prior to this cysts. Denies bowel or bladder problems. She is a smoker. ALLERGIES Allergies Allergen Reactions ??? Eszopiclone Nausea And Vomiting ??? Latex Other (see comments) ??? Morphine GI intolerance ??? Naproxen Sodium Other (see comments) ??? Piroxicam Rash MEDICATIONS Current Outpatient Medications: ??? acamprosate (CAMPRAL) 333 mg EC tablet, , Disp: , Rfl: ??? cephalexin (KEFLEX) 500 mg capsule, Take 1 capsule (500 mg total) by mouth 4 (four) times a day for 10 days., Disp: 40 capsule, Rfl: 0 ??? cetirizine (for_ZyrTEC) 10 mg tablet, Take 10 mg by mouth daily as needed., Disp: , Rfl: ??? diphenhydrAMINE (BENADRYL) 50 mg capsule, Take 25 mg by mouth every 4 (four) hours., Disp: , Rfl: ??? divalproex (DEPAKOTE ER) 250 mg 24 hr tablet, , Disp: , Rfl: ??? gabapentin (NEURONTIN) [...] years, Disp: , Rfl: ??? lithium carbonate 300 [...] breakfast., Disp: 90 tablet, Rfl: 3 ??? rizatriptan (MAXALT) 10 mg tablet, Take 10 mg by mouth., Disp: , Rfl: ??? sennosides (senna) 8.6 mg tablet, Take 8.6 mg by mouth daily., Disp: , Rfl: ??? acetaminophen (TYLENOL) 500 mg capsule, Take by mouth every 6 (six) hours as needed for pain., Disp: , Rfl: ??? fifpkzm-myggxalhqmkvo-amfrfmrm (EXCEDRIN MIGRAINE) 250-250-65 mg per tablet, Take 1 tablet by mouth every 6 (six) hours as needed for pain., Disp: , Rfl: ??? bismuth subsalicylate (PEPTO BISMOL) 262 mg/15 mL suspension, Take 30 mL by mouth every 6 (six) hours as needed for indigestion., Disp: , Rfl: ??? clindamycin (for_CLEOCIN T) 1 % lotion, Apply 1 application topically 2 (two) times a day as needed. For hidradenitis suppurativa , Disp: , Rfl: ??? docusate sodium [...] a day. , Disp: , Rfl: ??? lidocaine (LMX) 4 % cream, Apply 1 application topically 3 (three) times a day as needed for pain. For knee pain , Disp: , Rfl: ??? naltrexone (DEPADE) 50 mg tablet, Take 50 mg by mouth daily., Disp: , Rfl: ??? OLANZapine (ZyPREXA) 10 mg tablet, Take 10 mg by mouth daily., Disp: , Rfl: 1 ??? propranolol (INDERAL) 10 mg tablet, Take 10 mg by mouth as needed. For anxiety , Disp: , Rfl: ??? thiamine (vitamin B-1) 100 mg tablet, Take 100 mg by mouth daily., Disp: , Rfl: REVIEW OF SYSTEMS As per the HPI, otherwise negative 10 pt ROS. PAST MEDICAL HISTORY Past Medical History: Diagnosis Date [...] Raynaud's Disease ??? Reflux Esophageal PAST SURGICAL HISTORY Past Surgical History: Procedure Laterality Date ??? ARTHRODESIS OF ANKLE N/A 2001 Ankle fusion ??? DILATION AND CURETTAGE ??? REPAIR OF UMBILICAL HERNIA N/A Repair of umbilical hernia ??? VAGINAL DELIVERY ??? VAGINAL DELIVERY ??? VAGINAL DELIVERY OBSTETRIC HISTORY OB History Para Term AB Living 4 3 1 2 1 3 SAB TAB Ectopic Molar Multiple Live Births 1 3 # Outcome Date GA Lbr Kevin/2nd Weight Sex Delivery Anes PTL Lv 4 SAB SAB SA 3 Vag-Spont JONATHAN 2 Vag-Spont JONATHAN 1 Term Vag-Spont JONATHAN SOCIAL HISTORY Social History Socioeconomic History ??? Marital status: Spouse name: Not on file ??? Number of children: Not on file ??? Years of education: Not on file ??? Highest education level: Not on file Occupational History Employer: [employer] Social Needs ??? Financial resource strain: [...] week Gets together: Not on file Attends confucianist service: Not on file Active member of club or organization: No Attends meetings of clubs or organizations: Not on file Relationship status: Not on file ??? Intimate partner violence Fear of current or ex partner: No Emotionally abused: No Physically abused: No Forced sexual activity: No Other Topics Concern ??? Not on file Social History Narrative ??? Not on file FAMILY HISTORY Family History Problem Relation Age of Onset ??? Breast cancer Mother ??? Thyroid cancer Father ??? Rheum arthritis Grandmother ??? Fibromyalgia Sister OBJECTIVE BP 98/66 Wt 85.5 kg BMI 30.41 kg/m?? General: Well-developed, well-nourished female in no apparent distress. Neurological: Alert and oriented x3. Lungs: Breathing nonlabored. No W/R/C. Heart: Regular rate. No murmurs. No JVD. No peripheral vascular disease. Abdomen: Soft, nontender, nondistended. No organomegaly. No rebound, no guarding. Pelvic exam: Normal external female genitalia without lesions or abnormalities with exception of inflamed swollen right bartholin gland - size of golf ball. Normal pubic hair distribution. Urethral meatus normal in appearance and without masses. Vaginal mucosa is pink and moist with a small amount of physiologic discharge present in the posterior vaginal fornix. No vaginal lesions. Well estrogenized vaginal mucosa. No cystocele or rectocele. Good lateral vaginal support. Normal muparous cervix without lesions or abnormalities. No cervical motion tenderness to palpation. The bladder and urethra are nontender to palpation. Uterus is normal size, shape, consistency, anteflexed. No adnexal masses or tenderness bilaterally. Pap smear and gc/chlamydia collected and pending. Rectal exam: No external hemorrhoids noted. Extremities: No clubbing cyanosis or edema. Nontender bilaterally. DIAGNOSTICS Pap smear and gc/chlamydia collected and pending. ASSESSMENT / PLAN Marlin Plummer is a 39 y.o. female who presents in consultation for infected right bartholin gland cyst. Diagnosis Plan 1. Bartholin's Gland Cyst Obstetrics and Gynecology - Gynecology consult (clinic) 2. Screening For Venereal Disease Chlamydia / Gonorrhoeae Amplified RNA 3. Pap Smear Examination ThinPrep w/HPV Co-Test Screen - Patient was advised on options for treatment. Advised on drainage with word catheter placement today in office vs surgical marsupialization and possible excision. She would like to have excision. I am not available to do this tomorrow. The case was discussed with Dr. Collins who is able to do this surgery tomorrow. He was present for the examination and is okay with this plan. The patient would like to proceed with OR procedure. Surgery with be tomorrow at noon with Dr. Collins. Dr. Collins to complete orders. Patient advised of risks of bleeding, infection, injury to nearby tissue, and increased risk of blood clots. She is medically cleared for surgery after visit today. She had all of her questions answered. She is aware of arrival time and NPO for 8 hours prior. She had gc/chlamydia collected today. She will continue PO antibiotics prescribed by Zoë Nick and defer to Dr. Collins's judgment for procedure tomorrow for postop care. Advised of risk of recurrent with either procedure, but smaller with OR procedure. She is aware of risks and benefits, alternative options and agrees to proceed. - Pap smear collected and pending - The patient asked appropriate questions and these were answered for her. - Bleeding and infection precautions are reviewed with the patient. - Problem list reviewed and updated. - FU per Dr. Collins to be discussed with patient. - 35 minute visit with greater than 50% spent in counseling and coordination of care. Apple French MD Obstetrics and Gynecology [facility] ARD/STEWARD[place] LOUN[place] documented in this encounter Plan of Treatment Not on filedocumented as of this encounter Procedures Procedure Name Priority Date/Time Associated Diagnosis Comme nts THINPREP W/HPV Routine 05/07/2019 12:19 PM Pap Smear Result s for this CO-TEST SCREEN STEWARD/[place] Examination procedure are in the results section. HPV WITH Routine 05/07/2019 12:19 PM Results for this GENOTYPING, PCR, [place] procedure a re in THINPREP the results section. CHLAMYDIA/GONORRHOE Routine 05/07/2019 12:19 PM Screening For Results for this AE AMPLIFIED RNA [place] Venereal Disease procedu re are in the results section. documented in this encounter Results HPV with Genotyping, PCR, ThinPrep (05/07/2019 12:19 PM [place]) P athologist Signature HPV with Negative Negative 05/08/2019 [facility] Genotyping, 7:32 PM [place] ThinPrep, PCR Comment: Negative for high risk HPV by nucleic ac id amplification. ??The following high risk HPV types were not detected: 16, 18, 31, 33, 35, 39, 45, 51, 52, 56, 58, 59, 66, and 68 Specimen Anatomical Collection Method Collection Time Receive d Time (Source) Location / / Volume Laterality Varies 05/07/2019 12:19 05/08/2019 7:24 PM [place] AM [place] Apple French M.D. LAB MICROBIOLOGY - GENERAL O [place] Performing Organization Address City/[facility] Phon e Number [address] [address] [place] [address] [address] Chlamydia / Gonorrhoeae Amplified RNA (05/07/2019 12:19 PM [place]) [facility] Method Time [facility] [place] Source Swab, Vagina 05/07/2019 [facility] 10:53 PM [place] Chlamydia Negative Negative 05/07/2019 [facility] trachomatis 10:53 PM [place] amplified RNA Source Swab, Vagina 05/07/2019 [facility] 10:53 PM [place] Neisseria Negative Negative 05/07/2019 [facility] gonorrhoeae 10:53 PM [place] amplified RNA Specimen Anatomical Collection Method Collection Time Receive d Time (Source) Location / / Volume Laterality Varies (Vagina) 05/07/2019 12:19 05/07/19 20 7:16 PM [place] PM [place] Apple French M.D. LAB MICROBIOLOGY - GENERAL Jewel VAN Performing Organization Address City/[facility] Phon e Number [address] [address] [place] [address] ThinPrep w/HPV Co-Test Screen (05/07/2019 12:19 PM [place]) Component Value Ref Test Analysis Performed [employer] [facility] Method Time At [facility] [place] 05/12/2019 HK 12:33 PM [place] Report Morteza Dumont MD 05/12/2019 [facility] electronically I verify that I have examined all relevant slides/ma terials 12:33 PM signed by for the specimen(s) and rendered or confirmed the diagnosis. [place] Gross Description Received specimen 05/12/2019 [facility] Y in a ThinPrep 12:33 PM vial. [place] Pap Test Source Cervical/Endocervi 05/12/2019 [facility] madelaine 12:33 PM [place] Clinical History IUD 05/12/2019 [facility] 12:33 PM [place] Menstrual IUD 05/12/2019 [facility] Status(LMP, PM, 12:33 PM ) [place] Hormone IUD 05/12/2019 [facility] Therapy/Contracep 12:33 PM tives [place] Interpretation Cervical/Endocervical ??(ThinPrep): 05/12/2019 [facility] Satisfactory for Evaluation 12:33 PM Negative for Intraepithelial Lesion or Malignancy [place] Reactive cellular changes associated with: ? Reparative or inflammatory changes High Risk HPV: ??Negative Negative for High Risk HPV by nucleic acid amplification. The following High Risk HPV types were not detected: 16, 18, 31, 33, 35, 39, 45, 51, 52, 56, 58, 59, 66, and 68. Specimen Anatomical Collection Method Collection Time Receive d Time (Source) Location / / Volume Laterality Varies 05/07/2019 12:19 05/08/2019 7:24 (Cervix/Endocerv PM [place] AM [place] ix) Narrative This result has an attachment that is no t available. Apple French M.D. LAB PAP PATHDX ORDERABLES Performing Organization Address City/State/ZIP Code Phon e Number [facility] [address] [place] [id number] [place] [address] [place] [address] [facility] Cytology [address] [place] [address] documented in this encounter Visit Diagnoses Diagnosis Bartholin's Gland Cyst - Primary Screening For Venereal Disease Pap Smear Examination documented in this encounter Additional Health Concerns Assessment Noted Time PHQ-9 Depression Total Score: 21 04/07/2019 8:00 PM CS T documented as of this encounter Care Teams Collection Support Specialist Relationship Specialty Start Date End Date Zoë Nick, TIM, C.N.P. PCP - General Family Medicine 11/19/17 11/29/[address] [address] documented as of this encounter
--- OUTSIDE RECORDS SUMMARY | 2022-02-02 11:03 | XMS_ITS | Encounter Summary ---
:1980 Author Organization [facility] Address [address] [place] [address] Care Team Providers Name Role Phone Vadim Gaines M.D. Primary Care Provider Reason for Referral Outpatient (Routine) - Closed Specialty Diagnoses / Procedures Referred By Contact Refer red To Contact Obstetrics and Diagnoses PAR Review Yi Kaye, [facility] Gynecology TIM, C.N.P. [address] [place] [address] Referral ID Status Reason Start Date Expiration Date Visits Requ ested Visits Authorized [id number] Closed 06/05/2017 12/02/2017 1 1 TOP PUBLISHING ASSOCIATE Reason for Visit Reason Comments Communication Encounter Details Date Type Department Care Team Description 06/05/2017 Clinical Communication Department of Yi Kaye Internal Medicine in TIM Dominguez, C. N.PSarah [place], [place] [address] [place] [address] Social History Tobacco Use Types Packs/Day Years Used Date Smoking Tobacco: Every Day Smokeless Tobacco: Former Snuff Alcohol Use Standard Drinks/Week Comments Yes [...] do you attend congregational or Never 2019 sikhism services? Do you [...] this encounter Miscellaneous Notes Telephone Encounter - Jessica Morales R.N. - 06/05/2017 1:47 PM CST Spoke with patient. She stated that she usually sees Zoë Nick, but she is out of the office until July. She stated that she gets recurrent bacterial vaginosis, after sex with her without acondom. She stated that she has been treated for this in the past with Flagyl, which takes care of it but it makes her stomach really upset. She also stated that ever since her IUD fell out about 1 year ago, she has had very irregular periods, along with large clots. Lastly, she needs a small lump addressed on her labia. She is coming in tomorrow at 1100 for evaluation. TOP PUBLISHING ASSOCIATE Telephone Encounter - Adela Solares - 06/05/2017 1:02 PM CST Patient requesting to speak to Yi Kaye. She would not disclose the reason. Please advise. TOP PUBLISHING ASSOCIATE documented in this encounter Plan of Treatment Not on filedocumented as of this encounter Results Obstetrics and Gynecology office visit (clinic) (06/06/2017 12:52 PM DESKTOP PUBLISHING ASSOCIATE) Yi Kaye APRN CSarahNSarahPSarah OUTPATIENT RETURN VISIT S documented in this encounter Visit Diagnoses Not on filedocumented in this encounter Additional Health Concerns Assessment Noted Time PHQ-9 Depression Total Score: 6 04/03/2017 9:36 AM DESKTOP PUBLISHING ASSOCIATE documented as of this encounter Care Teams Obiee Report Developer Relationship Specialty Start Date End Date Vadim Gaines M.D. PCP - General 09/14/16 11/18/17 documented as of this encounter
--- OUTSIDE RECORDS SUMMARY | 2022-02-02 11:03 | XMS_ITS | Encounter Summary ---
:1980 Author Organization [facility] Address [address] [place] [address] Care Team Providers Name Role Phone Vadim Gaines M.D. Primary Care Provider Reason for Visit Reason Comments Communication Encounter Details Date Type Department Care Team Description 04/17/2017 Clinical Communication Department of [facility] Vadim Gaines M.D. Communication Medicine, [address] [place], [place] [address] [facility] [place], [place] [phone] [address] (Fax) [phone] Social History Tobacco Use Types Packs/Day Years [...] do you attend anglican or Never 2019 temple services? Do you [...] this encounter Miscellaneous Notes Telephone Encounter - Zoë Nick APRN, C.N.P. - 04/17/2017 11:04 AM MEDICAL ADVISOR Prescription for metronidazole 500 mg, 1 tab twice daily for 7 days sent to [facility]. CAL ADVISOR Telephone Encounter - Gabriela Villavicencio R.N. - 04/17/2017 9:23 AM CST Please see message CAL ADVISOR Telephone Encounter - Johanna Villavicencio - 04/17/2017 8:46 AM CST Patient is calling in she patient has another vaginal bacterial infection. Adria Camp sent in a Rx to [facility]. CAL ADVISOR documented in this encounter Plan of Treatment Not on filedocumented as of this encounter Visit Diagnoses Diagnosis Vaginosis Bacterial - Primary documented in this encounter Additional Health Concerns Assessment Noted Time PHQ-9 Depression Total Score: 6 04/03/2017 9:36 AM MEDICAL ADVISOR documented as of this encounter Care Teams Employee Communications Manager Relationship Specialty Start Date End Date Vadim Gaines M.D. PCP - General 09/14/16 11/18/17 documented as of this encounter
--- OUTSIDE RECORDS SUMMARY | 2022-02-02 11:03 | XMS_ITS | Encounter Summary ---
:1980 Author Organization [facility] Address [address] [place] [address] Care Team Providers Name Role Phone Vadim Gaines M.D. Primary Care Provider Reason for Visit Reason Comments Communication Encounter Details Date Type Department Care Team Description 06/27/2017 Clinical Communication Department of Yi Kaye Internal Medicine in [place], TIM, [place] [address] [place] [phone] Social History Tobacco Use Types Packs/Day [...] do you attend confucianism or Never 2019 jainism services? Do you belong to any clubs [...] this encounter Miscellaneous Notes Telephone Encounter - Yi Kaye APRN, C.N.P. - 06/27/2017 12:07 PM CDT I called Marlin to discuss her bleeding. She continues to experience bleeding on a daily basis. She notes sometimes the bleeding is heavy, but other times it is only spotting. It has been quite persistent since her IUD was placed on 06/06/2017. She does have a prescription for doxycycline for her hydradenitis suppurativa, she is going to go ahead and start doxycycline 1 tab twice daily for 10 days. For bleeding does not light in or on. During that time frame, she is either going to call me or schedule an appointment for follow-up. We reviewed signs and symptoms of anemia. If she is experiencing these I have asked that she let me know right away. She is agreeable to this plan and will follow up as manisha guzmán. Telephone Encounter - Jessica Morales RShashank. - 06/27/2017 9:29 AM CDT Spoke with patient. She stated that she has been bleeding/ spotting since insertion. She stated thatshe has been changing a pad an hour, for about 1 week. She stated that she is not passing any clots like she use to. Denies any pain or cramping. Stated that she feels fine otherwise. Please advise. She also wanted to let you know that the Rx cream for her infection worked really well. Telephone Encounter - Adela Solares - 06/27/2017 9:16 AM CDT Patient states since having her Mirena put in on 06/06/17 she has been bleeding. She is wondering if this is normal. Please advise and call [phone] documented in this encounter Plan of Treatment Not on filedocumented as of this encounter Visit Diagnoses Not on filedocumented in this encounter Additional Health Concerns Assessment Noted Time PHQ-9 Depression Total Score: 6 04/03/2017 9:36 AM SKIDDER RUNNER documented as of this encounter Care Teams Race Car Driver Relationship Specialty Start Date End Date Vadim Gaines M.D. PCP - General 09/14/16 11/18/17 documented as of this encounter
--- OUTSIDE RECORDS SUMMARY | 2022-02-02 11:03 | XMS_ITS | Encounter Summary ---
:1980 Author Organization [facility] Address [address] [place] [address] Care Team Providers Name Role Phone Zoë Nick APRN, C.N.P. Primary Care Provider [phone] Reason for Visit Reason Onset Date Comments RX PRIOR AUTHORIZATION 12/24/2017 DENIAL OF RANITID INE HCI 150 MG TABLETS Encounter Details Date Type Department Care Team Description 12/24/2017 Clinical [facility] Pharm[facility] - Zoë Nick RX PRIOR Communication Lester Dominguez APRN, AUTHORIZATION (DENIAL [address] OF RANITIDINE [address], [place] MG TABLETS ) [facility] [address] [place] [phone] [address] Social History Tobacco Use Types Packs/Day [...] do you attend yazidi or Never 2019 hinduism services? Do you [...] Miscellaneous Notes Telephone Encounter - Zoë Nick APRN C.N.P. - 12/27/2017 3:40 PM CDT Noted. Telephone Encounter - Ольга العلي L.P.N. - 12/27/2017 3:17 PM CDT Attempted to contact Marlin twice. Message left and no return calls. Telephone Encounter - Ольга العلي L.P.N. - 12/26/2017 11:49 AM CDT Attempted to contact Marlin in regards to denial of medication. Telephone Encounter - Ольга العلي L.P.N. - 12/25/2017 3:28 PM CDT Attempted to contact Marlin in regards to denial of ranitidine not being covered. Left message to return my call. Telephone Encounter - Sukh Moreno - 12/24/2017 1:29 PM CDT Images from the original note were not included. The patient???s health insurer has denied prior authorization for RANITIDINE HCI 150 MG TABLETS . PLEASE SEE CLINICAL COMMUNICATION FOR MORE INFORMATION Your options: 1. Appeal the decision by reaching out to the patient???s insurer directly. (SEE BELOW) 2. Consider changing the patient???s medication therapy. 3. If not appealing or prescribing a different Rx, the prescription has already been released to thepharmacy so the patient has the option to pay full tijerina for the item if desired. Thank you documented in this encounter Plan of Treatment Not on filedocumented as of this encounter Visit Diagnoses Not on filedocumented in this encounter Additional Health Concerns Assessment Noted Time PHQ-9 Depression Total Score: 6 04/03/2017 9:36 AM IT SERVICE TECHNICIAN documented as of this encounter Care Teams Catering Coordinator Relationship Specialty Start Date End Date Zoë Nick, DANCING MASTER, C.N.P. PCP - General Family Medicine 11/19/17 11/29/[address] [address] documented as of this encounter
--- OUTSIDE RECORDS SUMMARY | 2022-02-02 11:03 | XMS_ITS | Encounter Summary ---
:1980 Author Organization [facility] Address [address] [place] [address] Care Team Providers Name Role Phone Zoë Nick APRN, C.N.P. Primary Care Provider [phone] Encounter Details Date Type Department Care Team Description 12/24/2017 Orders Only [facility] Pharmacy - [facility] Zoë Carter APRN, [address] , [place] [address] [place] [phone] [address] [phone] [place], [place] [phone] (Wo rk) Social History [...] or relatives? How often do you attend mosque or Never 2019 tenriism services? Do you belong to any clubs or No 01/29/2019 organizations such as mosque groups, unions, fraternal or athletic groups, or [...] Depression Total Score: 6 04/03/2017 9:36 AM CARBON PAPER COATING SUPERVISOR documented as of this encounter Care Teams Safety Instruction Police Officer Relationship Specialty Start Date End Date Zoë Nick, TIM, C.N.P. PCP - General Family Medicine 11/19/17 11/29/[address] [address] documented as of this encounter
--- OUTSIDE RECORDS SUMMARY | 2022-02-02 11:03 | XMS_ITS | Encounter Summary ---
:1980 Author Organization [facility] Address [address] [place] [address] Care Team Providers Name Role Phone Vadim Gaines M.D. Primary Care Provider Encounter Details Date Type Department Care Team Description 09/06/2017 Nurse Triage Department of [facility] Lisa wendy Sifuentes, R.NSarah Medicine, [facility], [place], [place] [address] [place] [address] Social History Tobacco Use Types Packs/Day Years [...] or relatives? How often do you attend moravian or Never 2019 nondenominational services? Do you belong to any clubs or No 01/29/2019 organizations such as moravian groups, unions, fraternal or athletic groups, or [...] Depression Total Score: 6 04/03/2017 9:36 AM ORACLE EBS DEVELOPER documented as of this encounter Care Teams Technical Photographer Relationship Specialty Start Date End Date Vadim Gaines M.D. PCP - General 09/14/16 11/18/17 documented as of this encounter
--- OUTSIDE RECORDS SUMMARY | 2022-02-02 11:03 | XMS_ITS | Encounter Summary ---
:1980 Author Organization [facility] Address [address] [place] [address] Care Team Providers Name Role Phone Vadim Gaines M.D. Primary Care Provider Encounter Details Date Type Department Care Team Description 09/19/2017 Hospital Encounter Department of Laboratory Finesse Horton, Medicine in [address] [place] [phone] (Wo rk) Social History Tobacco Use Types [...] or relatives? How often do you attend yarsani or Never 2019 druze services? Do you belong to any clubs or No 01/29/2019 organizations such as yarsani groups, unions, fraternal or athletic groups, or [...] Refills Start Date End Date cetirizine (for_ZyrTEC) Take 10 mg by mouth 0 10 mg tablet daily as needed. clindamycin (for_CLEOCIN Apply 1 application 0 T) 1 % lotion topically 2 (two) times a day as needed. For hidradenitis suppurativa minocycline Take 1 capsule (100 90 capsule 3 09/03/2017 09/0 05/2017 (MINOCIN,DYNACIN) 100 mg mg total) by mouth capsule daily. diphenhydrAMINE Take 50 mg by mouth 0 12/18/2017 (for_BENADRYL) 50 mg every 6 (six) hours capsule as needed. doxycycline (for_ADOXA) Take 1 tablet by 0 201602/13/2018 100 mg tablet mouth 2 (two) times a day as needed. lamoTRIgine Take 200 mg by mouth 0 04/2019 (for_LaMICtal) 200 mg 2 (two) times a day. tablet lithium carbonate 300 mg Take 900 mg by mouth 0 0 12/18/2016 02/13/2018 tablet at bedtime. meclizine (for_ANTIVERT) Take 1 tablet (25 mg 30 tablet 0 0 04/03/2017 09/24/2017 25 mg tablet total) by mouth 3 (three) times a day as needed for dizziness. melatonin 3 mg tablet Take 1 tablet by 0 03/30/20 16 12/18/2017 mouth at bedtime as needed. OLANZapine (for_ZyPREXA) Take 1 tablet by 0 03/3002/13/2018 7.5 mg tablet mouth daily. propranolol Take 1 tablet by 0 12/18/2016 018 (for_INDERAL) 10 mg mouth as needed. tablet rizatriptan (MAXALT) 10 Take 1 tablet by 0 201512/18/2017 mg tablet mouth See Admin Instructions. rizatriptan (MAXALT) 10 Take 10 mg by mouth. 0 09/01/2019 mg tablet triamcinolone (KENALOG) Apply 1 application 30 g 1 12/201712/18/2017 0.1 % ointment topically 3 (three) times a day. to affected area(s). documented as of this encounter Plan of Treatment Not on filedocumented as of this encounter Visit Diagnoses Not on filedocumented in this encounter Additional Health Concerns Assessment Noted Time PHQ-9 Depression Total Score: 6 04/03/2017 9:36 AM FICTION WRITER documented as of this encounter Care Teams Air Liaison And Special Staff Relationship Specialty Start Date End Date Vadim Gaines M.D. PCP - General 09/14/16 11/18/17 documented as of this encounter
--- OUTSIDE RECORDS SUMMARY | 2022-02-02 11:03 | XMS_ITS | Encounter Summary ---
:1980 Author Organization [facility] Address [address] [place] [address] Care Team Providers Name Role Phone Zoë Nick APRN, C.N.P. Primary Care Provider [phone] Reason for Visit Reason Comments Other sleeping issues, GI issues, watery stools, nausea, weight gain, pain during/after sex, lumps in t he groin, painful lumps in right arm pit Appointment Request (Routine) - Closed Specialty Diagnoses / Procedures Referred By Contact Refer red To Contact Family Medicine Diagnoses [facility] Procedures [facility] Referral ID Status Reason Start Date Expiration Date Visits Requ ested Visits Authorized [id number] Closed 12/10/2017 12/10/2018 1 1 Encounter Details Date Type Department Care Team Description 12/18/2017 Office Visit Department of Family Zoë Nick Nee d Vaccine Immunization Influenza (Primary Dx); Medicine, [place] TIM, C.N.P. Disturbance Sleep; Clinic, in [place], [address] Irritable Bowel Syndrome With Diarrhea; [place], [place] Fibromyalgia; [address] [place] [address] AVE [phone] Bipolar I Disorder (HCC); [place], [place] [phone] Reflux Esophag eal [address] (Work) [phone] Social History Tobacco Use Types Packs/Day Years [...] do you attend christian or Never 2019 protestant services? Do you belong to any clubs [...] Sign Reading Time Taken Comments Blood Pressure 142/80 12/18/2017 10:51 AM CDT Pulse 80 12/18/2017 10:51 AM CDT Temperature 36.8 ??C (98.2 ??F) 12/18/2017 10:51 AM CDT Respiratory Rate 18 12/18/2017 10:51 AM CDT Oxygen Saturation - - Inhaled Oxygen Concentration - - Weight 89.7 kg (197 lb 12 oz) 12/18/2017 10:51 AM CDT Height 166 cm (5' 5.35) 12/18/2017 10:51 AM CDT Body Mass Index 32.55 12/18/2017 10:51 AM CDT documented in this encounter Patient Instructions AttachmentsThe following attachments cannot be sent through Care Everywhere. Dietary Suggestions for Managing Chronic Diarrhea (Yemeni)documented in this encounter Progress Notes Zoë Nick, TIM, C.N.P. - 12/18/2017 11:00 AM CDT SUBJECTIVE CHIEF COMPLAINT: Chief Complaint Patient presents with ??? Other sleeping issues, GI issues, watery stools, nausea, weight gain, pain during/after sex, lumps in thegroin, painful lumps in right arm pit HISTORY OF PRESENT ILLNESS: Marlin is here for review of medical concerns, to review and refill medications and to update Preventive Services. She has been having a lot of gastrointestinal issues including daily loose stools, nausea with bloating and abdominal discomfort with dyspepsia. She has also experienced occasional dysphagia. She denies blood in the stool. No fever. No vomiting. She states she does not sleep well at night, she has tried sleeping pills in the past. She most recently was on 6-10 mg of melatonin and Benadryl. She states she continues to wake up at 2:30 a.m. in the morning and is unable to fall back asleep. She has fibromyalgia, she has been seen at the fibromyalgia Clinic at [facility] in [place]. She will continue to follow with them as needed. She has been seen by gynecology for hidradenitis suppurative. She is currently on minocycline. She will follow up with [facility] nurse practitioner for pain during intercourse. REVIEW OF SYSTEMS: A 10 system review of constitutional, cardiovascular, respiratory, musculoskeletal, endocrine, skin,HEENT, genitourinary, psychiatric and neurologic systems was obtained and is unremarkable except as noted above. Answers for HPI/ROS submitted by the patient on 12/18/2017 Fatigue: Yes Weight gain of more than 10 pounds: Yes Loss of appetite: Yes Night sweats: Yes No eye issues: Yes No ENT issues: Yes Chest pain, pressure or tightness: Yes No respiratory issues: Yes Abdominal (belly) pain or cramping: Yes Heartburn: Yes Nausea: Yes Vomiting: Yes Diarrhea: Yes Muscle pain/stiffness: Yes Pain or stiffness in the joints: Yes Joint swelling: Yes Back pain/stiffness: Yes No skin issues: Yes Weakness in arms and/or legs: Yes Change in sexual drive (decreased libido): Yes Feeling nervous, anxious or on edge: Yes Not being able to stop or control worrying: Yes Enlarged lymph nodes: Yes Bruises/bleeds easily: Yes Frequent urination: Yes Urgency: Yes The following portions of the patient's history were reviewed and updated as appropriate: allergies,current medications, family history, medical history, social history, surgical history and problem list. ALLERGIES: Allergies Allergen Reactions ??? Eszopiclone Nausea And Vomiting ??? Latex Other (see comments) ??? Morphine GI intolerance ??? Naproxen Sodium Other (see comments) ??? Piroxicam Rash MEDICATIONS: Current Outpatient Prescriptions: ??? cetirizine (for_ZyrTEC) 10 mg tablet, Take 10 mg by mouth daily as needed., Disp: , Rfl: ??? clindamycin (for_CLEOCIN T) 1 % lotion, Apply 1 application topically 2 (two) times a day as needed., Disp: , Rfl: ??? doxycycline (for_ADOXA) 100 mg tablet, Take 1 tablet by mouth 2 (two) times a day as needed., Disp: , Rfl: ??? lamoTRIgine (for_LaMICtal) 200 mg tablet, Take 200 mg by mouth daily., Disp: , Rfl: ??? lithium carbonate 300 mg tablet, Take 900 mg by mouth at bedtime. , Disp: , Rfl: ??? OLANZapine (for_ZyPREXA) 7.5 mg tablet, Take 1 tablet by mouth daily., Disp: , Rfl: ??? raNITIdine (ZANTAC) 150 mg tablet, Take 1 tablet (150 mg total) by mouth 2 (two) times a day., Disp: 180 tablet, Rfl: 3 ??? traZODone (DESYREL) 50 mg tablet, Take 1 tablet (50 mg total) by mouth at bedtime as needed for sleep., Disp: 90 tablet, Rfl: 1 OBJECTIVE LABS and DIAGNOSTICS: [place] level per her psychiatric provider is pending. VITAL SIGNS: Temperature: [36.8 ??C] 36.8 ??C Resp Rate: [18] 18 Blood Pressure: (142)/(80) 142/80 Pulse Rate: [80] 80 PHYSICAL EXAM: GENERAL: In general, the patient [...] are +2 and symmetrical. ASSESSMENT /PLAN: #1 Need Vaccine Immunization Influenza Influenza immunization given today. #2 Disturbance Sleep Trazodone 50 mg 1 at bedtime. She will discuss this new medication with her psychiatric provider as well. #3 Irritable Bowel Syndrome With Diarrhea Scheduling consult with Gastroenterology at [facility] in [place] for further evaluation and treatment. #4 Fibromyalgia She has been seen at the fibromyalgia Clinic at [facility] in [place], she has several patient education handouts including recommendations for exercise, good sleep hygiene, healthy diet with adequate water intake every day and anti- inflammatory medication if needed. Recommend she continue to follow these guidelines and schedule recheck in the Fibromyalgia Clinic if needed. #5 Bipolar I Disorder (HCC) She follows at the [facility] in [place], [place] with Hoda Horton. She had lithium leveldrawn today. #6 Reflux Esophageal Start ranitidine 150 mg, 1 tablet twice daily as needed. Recheck in 1 month. HEALTH MAINTENANCE: Up-to-date. documented in this encounter Plan of Treatment Not on filedocumented as of this encounter Visit Diagnoses Diagnosis Need Vaccine Immunization Influenza - Pr imary Disturbance Sleep Irritable Bowel Syndrome With Diarrhea Fibromyalgia Bipolar I Disorder (HCC) Reflux Esophageal documented in this encounter Additional Health Concerns Assessment Noted Time PHQ-9 Depression Total Score: 6 04/03/2017 9:36 AM SAFETY SITTER documented as of this encounter Care Teams Client Success Specialist Relationship Specialty Start Date End Date Zoë Nick APRN, C.N.P. PCP - General Family Medicine 11/19/17 11/29/[address] [address] documented as of this encounter
--- OUTSIDE RECORDS SUMMARY | 2022-02-02 11:03 | XMS_ITS | Encounter Summary ---
:1980 Author Organization [facility] Address [address] [place] [address] Care Team Providers Name Role Phone Vadim Gaines M.D. Primary Care Provider Reason for Visit Reason Comments Communication Encounter Details Date Type Department Care Team Description 05/10/2017 Clinical Communication Department of [facility] Phil Kaye Communication Medicine in [place], [place], [place], [place] [address] [place] [phone] Social History Tobacco Use Types Packs/Day [...] do you attend adventism or Never 2019 catholic services? Do you belong to any clubs or No 01/29/2019 organizations such as adventism groups, unions, fraternal or athletic groups, or [...] Telephone Encounter - Jessica Morales R.N. - 05/10/2017 2:37 PM CST Spoke with patient. She stated that she has noticed a small pea size lump on the right side of her labia. She states that she can move this and it is not painful to touch. She stated that it was just floating there. She also stated that she finished taking Rx Flagyl about 1.5 weeks ago for bacterialvaginosis and she is still having vaginal odor. She was advised to make an appointment with Yi roa or a follow up. She was transferred to scheduling to make this. All questions answered. OPTICAL ELEMENT MAKER Telephone Encounter - Rosangela Hodge - 05/10/2017 8:53 AM CST Patient called just finished antibiotics for vaginal infection and she doesn't think it cleared. Also concerned about a new lump down there and blisters are not getting better OPTICAL ELEMENT MAKER documented in this encounter Plan of Treatment Not on filedocumented as of this encounter Visit Diagnoses Not on filedocumented in this encounter Additional Health Concerns Assessment Noted Time PHQ-9 Depression Total Score: 6 04/03/2017 9:36 AM FLAT OPTICAL ELEMENT MAKER documented as of this encounter Care Teams Decorator Store Relationship Specialty Start Date End Date Vadim Gaines M.D. PCP - General 09/14/16 11/18/17 documented as of this encounter
--- OUTSIDE RECORDS SUMMARY | 2022-02-02 11:03 | XMS_ITS | Encounter Summary ---
:1980 Author Organization [facility] Address [address] [place] [address] Care Team Providers Name Role Phone Zoë Nick APRN, C.N.P. Primary Care Provider [phone] Encounter Details Date Type Department Care Team Description 11/27/2017 Clinical Communication Department of Bibi Ocampo, Medicine, [place] TIM, C.N.P. [facility], [place] [address] [place], [place] [address] [address] [place], [place] [phone] [address] (Work) [phone] Social History Tobacco Use Types Packs/Day Years [...] do you attend synagogue or Never 2019 hoahaoism services? Do you [...] Telephone Encounter - Jessica Morales R.N. - 11/27/2017 11:34 AM CDT Images from the original note were not included. Yi Kaye APRN, C.N.P. ??[facility] Ob Fbfb Nurse 18 minutes ago (11:15 AM) Thanks for the very well-thought out and comprehensive message. ??I really appreciate it. ??Please let patient know that I sent in the clindamycin to [facility] in as she requested. ??Please let me know if she has any questions. ??Thanks. (Routing comment) Patient notified. She also stated that she has another outbreak of Hidradenitis suppurativa and is requesting a refill of Rx Minocycline. She was notified that Roselia sent in a Rx in August with 3 refills.She was advised to check with the pharmacy to have this refilled. She will let me know if she still have trouble getting this. 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 She was advised to make an appt in the near future to have this evaluated. She was advised to use warm compresses in the meantime. She will call back to schedule. Telephone Encounter - Jessica Morales R.N. - 11/27/2017 9:22 AM CDT Spoke with patient. She stated that she is having the same symptoms of a bacterial infection as she has had in the past, odorous discharge and vaginal irritation since yesterday morning. She stated that if her and her do not use a condom during intercourse, she gets this. This was the case this past weekend. She is requesting a refill of Clindamycin cream to be sent to [facility]. Last Rx of this was given on 09/24 and she stated that is completley relieved her symptoms. She stated that this was her fault and did not want to make an appt for evaluation at this time. Can you please refill this? Please advise. Telephone Encounter - MelviKandy everett - 11/27/2017 8:49 AM CDT Requesting gel medication be called into [facility] for bacterial vaginal infection. Noticed symptoms 11/26. documented in this encounter Plan of Treatment Not on filedocumented as of this encounter Visit Diagnoses Not on filedocumented in this encounter Additional Health Concerns Assessment Noted Time PHQ-9 Depression Total Score: 6 04/03/2017 9:36 AM PRISON LIBRARIAN documented as of this encounter Care Teams Pretzel Twister Relationship Specialty Start Date End Date Zoë Nick, TIM, C.N.P. PCP - General Family Medicine 11/19/17 11/29/20 [address] [place] [phone] documented as of this encounter
--- OUTSIDE RECORDS SUMMARY | 2022-02-02 11:03 | XMS_ITS | Encounter Summary ---
:1980 Author Organization [facility] Address [address] [place] [address] Care Team Providers Name Role Phone Vadim Gaines M.D. Primary Care Provider Encounter Details Date Type Department Care Team Description 04/11/2017 Orders Only Department of Family Zoë Nick, APR N, Medicine, [facility], C.N. P. in [facility] rotary soil stabilizer [address] [address] [place] [address] [phone] Social History Tobacco Use Types Packs/Day Years [...] or relatives? How often do you attend restorationism or Never 2019 mormon services? Do you belong to any clubs or No 01/29/2019 organizations such as restorationism groups, unions, fraternal or athletic groups, or [...] Depression Total Score: 6 04/03/2017 9:36 AM EVENTS ADMINISTRATIVE ASSISTANT documented as of this encounter Care Teams School Health Aide Relationship Specialty Start Date End Date Vadim Gaines M.D. PCP - General 09/14/16 11/18/17 documented as of this encounter
--- OUTSIDE RECORDS SUMMARY | 2022-02-02 11:03 | XMS_ITS | Encounter Summary ---
:1980 Author Organization [facility] Address [address] [place] [address] Care Team Providers Name Role Phone Vadim Gaines M.D. Primary Care Provider Encounter Details Date Type Department Care Team Description 09/24/2017 Nurse Triage Department of KendaliaKaren R.N. Medicine, [facility], [address] [place] [address] [place] [address] [place] [address] [phone] Social History Tobacco Use Types Packs/Day Years [...] do you attend episcopal or Never 2019 jainism services? Do you [...] Depression Total Score: 6 04/03/2017 9:36 AM PRODUCTION COORDINATOR documented as of this encounter Care Teams Calculator Operator Relationship Specialty Start Date End Date Vadim Gaines M.D. PCP - General 09/14/16 11/18/17 documented as of this encounter
--- OUTSIDE RECORDS SUMMARY | 2022-02-02 11:03 | XMS_ITS | Encounter Summary ---
:1980 Author Organization [facility] Address [address] [place] [address] Care Team Providers Name Role Phone Zoë Nick APRN, C.NDallas Primary Care Provider [phone] Encounter Details Date Type Department Care Team Description 12/18/2017 Hospital Encounter Department of Hoda Horton Medica tirebeca Therapy Sea Foam Kiss Maker Not Anticoagulant; Laboratory Medicine K, LEASING ASSOCIATE Bipolar Disorder Current Episode Hypoman ic (HCC) in [address] [place] [phone] Social History Tobacco Use Types Packs/Day Years [...] or relatives? How often do you attend episcopalian or Never 2019 yarsanism services? Do you belong to any clubs or No 01/29/2019 organizations such as episcopalian groups, unions, fraternal or athletic groups, or [...] Dispensed Refills Start Date End Date cetirizine Take 10 mg by mouth 0 09/20/2015 (for_ZyrTEC) 10 mg daily as needed. tablet clindamycin Apply 1 application 0 12/18/2016 (for_CLEOCIN T) 1 % topically 2 (two) lotion times a day as needed. For hidradenitis suppurativa doxycycline Take 1 tablet by mouth 0 12/18/2016 1 04/15/2017 (for_ADOXA) 100 mg 2 (two) times a day as tablet needed. lamoTRIgine Take 200 mg by mouth 2 0 0 09/01/2019 (for_LaMICtal) 200 mg (two) times a day. tablet lithium carbonate 300 Take 900 mg by mouth 0 12/0102/13/2018 mg tablet at bedtime. OLANZapine Take 1 tablet by mouth 0 03/30/2016 (for_ZyPREXA) 7.5 mg daily. tablet raNITIdine (ZANTAC) Take 1 tablet (150 mg 180 tablet 3 12/1802/13/2018 150 mg total) by mouth 2 tabletIndications: (two) times a day. Reflux Esophageal rizatriptan (MAXALT) Take 10 mg by mouth. 0 08/0409/01/2019 10 mg tablet traZODone (DESYREL) 50 Take 1 tablet (50 mg 90 tablet 1 01/29/2019 mg tabletIndications: total) by mouth at Disturbance Sleep bedtime as needed for sleep. documented as of this encounter Plan of Treatment Not on filedocumented as of this encounter Procedures Procedure Name Priority Date/Time Associated Diagnosis Comme nts LITHIUM LEVEL, S Routine 12/18/2017 10:37 AM Medication Therap y Results for this CDT Sea Foam Kiss Maker Not procedure are in Anticoagulant the results Bipolar Disorder section. Current Episode Hypomanic (HCC) documented in this encounter Results [place] Level (12/18/2017 10:37 AM CDT) P athologist Signature [place], S 0.9 0.5 - 1.2 12/18/2017 [facility] mmol/L 9:58 PM CDT [facility] Specimen Anatomical Collection Method Collection Time Receive d Time (Source) Location / / Volume Laterality Blood (Blood, 12/18/2017 10:37 12/18/2017 9:32 Venous) AM CDT PM CDT Hoda Akhtar Sol LEASING ASSOCIATE LAB BLOOD ADD-ON Performing Organization Address City/State/ZIP Code Phon e Number [facility]- [address] [place] [address] [facility] documented in this encounter Visit Diagnoses Diagnosis Medication Therapy Fpc Not Anticoa gulant Bipolar Disorder Current Episode Hypoman ic (HCC) documented in this encounter Additional Health Concerns Assessment Noted Time PHQ-9 Depression Total Score: 6 04/03/2017 9:36 AM QUALITY REVIEW TRAINER documented as of this encounter Care Teams Health Analyst Relationship Specialty Start Date End Date Zoë Nick, TIM, C.N.P. PCP - General Family Medicine 11/19/17 11/29/20 [address], [place] [address] documented as of this encounter
--- OUTSIDE RECORDS SUMMARY | 2022-02-02 11:03 | XMS_ITS | Encounter Summary ---
:1980 Author Organization [facility] Address [address] [place] [address] Care Team Providers Name Role Phone Vadim Gaines M.D. Primary Care Provider Encounter Details Date Type Department Care Team Description 09/24/2017 Clinical Communication Department of Sleep Callie Nick, Medicine [facility] [address] [place] [phone] Social History Tobacco Use Types Packs/Day [...] do you attend caodaism or Never 2019 moravian services? Do you belong to any clubs [...] this encounter Miscellaneous Notes Telephone Encounter - Meri Knapp R.N. - 09/24/2017 1:21 PM CDT Patient notified. Agrees with plan. Telephone Encounter - Yi Kaye APRN, C.N.P. - 09/24/2017 12:57 PM CDT Please let patient know that I have sent in a prescription for clindamycin vaginal cream. She shouldtake as prescribed. If symptoms persist she needs to schedule an appointment in the clinic. Please let me know if she has any questions. Telephone Encounter - Ольга العلي L.P.N. - 09/24/2017 10:50 AM CDT Zoë please see triage message from earlier today with signs and symptoms. Telephone Encounter - Rosangela Hodge - 09/24/2017 9:25 AM CDT Patient calling regarding vaginal medication she had in May, would like refill, is having the samesymptoms. Morteza Page documented in this encounter Plan of Treatment Not on filedocumented as of this encounter Visit Diagnoses Not on filedocumented in this encounter Additional Health Concerns Assessment Noted Time PHQ-9 Depression Total Score: 6 04/03/2017 9:36 AM PROCESSING INSPECTOR documented as of this encounter Care Teams Healthcare Sales Representative Relationship Specialty Start Date End Date Vadim Gaines M.D. PCP - General 09/14/16 11/18/17 documented as of this encounter
--- OUTSIDE RECORDS SUMMARY | 2022-02-02 11:03 | XMS_ITS | Encounter Summary ---
:1980 Author Organization [facility] Address [address] [place] [address] Care Team Providers Name Role Phone Vadim Gaines M.D. Primary Care Provider Encounter Details Date Type Department Care Team Description 09/19/2017 Hospital Encounter Department of Hoda Horton Medica tirebeca Therapy Nursing Home Not Anticoagulant; Laboratory Medicine K, CABLE TENDER Anxiety Generalized Disorder in [address] [place] [phone] Social History Tobacco Use Types Packs/Day [...] or relatives? How often do you attend confucianist or Never 2019 druze services? Do you belong to any clubs or No 01/29/2019 organizations such as confucianist groups, unions, fraternal or athletic groups, or [...] Diagnosis Comme nts LIPID PANEL, S Routine 09/19/2017 11:14 Medication Therapy Res ults for this AM CDT Nursing Home Not procedure are in Anticoagulant the results Anxiety Generalized section. Disorder BUN (BLOOD UREA Routine 09/19/2017 11:14 Medication Therapy Re sults for this NITROGEN), S/P AM CDT Nursing Home Not procedure ar e in Anticoagulant the results Anxiety Generalized section. Disorder THYROID-STIMULATING Routine 09/19/2017 11:14 Medication Therap y Results for this HORMONE-SENSITIVE AM CDT Nursing Home Not procedure are in (S-TSH) Anticoagulant the results Anxiety Generalized section. Disorder GLUCOSE, FASTING, Routine 09/19/2017 11:14 Medication Therapy Results for this S/P AM CDT Crusher Feeder Not procedure are in Anticoagulant the results Anxiety Generalized section. Disorder CREATININE WITH Routine 09/19/2017 11:14 Medication Therapy Re sults for this EGFR, S/P AM CDT Crusher Feeder Not procedure are in Anticoagulant the results Anxiety Generalized section. Disorder LITHIUM LEVEL, S Routine 09/19/2017 11:14 Medication Therapy R esults for this AM CDT Nursing Home Not procedure are in Anticoagulant the results Anxiety Generalized section. Disorder documented in this encounter Results [place] Level (09/19/2017 11:14 AM CDT) athologist Signature [place], S 0.5 0.5 - 1.2 09/19/2017 [facility] mmol/L 9:36 PM CDT - [place] [facility] Specimen Anatomical Collection Method Collection Time Receive d Time (Source) Location / / Volume Laterality Blood (Blood, 09/19/2017 11:14 09/19/2017 9:10 Venous) AM CDT PM CDT Hoda Horton CABLE TENDER LAB BLOOD ADD-ON Performing Organization Address City/State/ZIP Code Phon e Number [facility]- [address] [place] [address] [place] [facility] (ABNORMAL) Glucose, Fasting (09/19/2017 11:14 AM CDT) athologist Signature Glucose, 112 (H) 70 - 99 09/19/2017 [facility] Fasting, S mg/dL 1:31 PM CDT [facility] [place] [facility] Specimen Anatomical Collection Method Collection Time Receive d Time (Source) Location / / Volume Laterality Blood (Blood, 09/19/2017 11:14 09/19/2017 Venous) AM CDT 12:59 PM CDT [facility] Horton CABLE TENDER LAB BLOOD NON ADD-ON Performing Organization Address City/State/ZIP Code Phon e Number [facility] [place] [address] [place] [address] LAB Creatinine with Estimated GFR (09/19/2017 11:14 AM CDT) athologist Signature Creatinine 0.77 0.59 - 09/19/2017 [facility] 1.04 mg/dL 1:31 PM CDT - [place] [facility] eGFR-Non >90 >=60 09/19/2017 [facility] Black/ mL/min/BSA 1:31 PM T [facility] [place] [facility] Comment: ----ADDITIONAL INFORMATION---- Estimated GFR calculated using the 2009 CKD_EPI creatinine equation. eGFR-Black/ >90 >=60 mL/min/BSA 2017 1:31 PM [facility] [place] [facility] Comment: ----ADDITIONAL INFORMATION---- Estimated GFR calculated using the 2009 CKD_EPI creatinine equation. Specimen Anatomical Collection Method Collection Time Receive d Time (Source) Location / / Volume Laterality Blood (Blood, 09/19/2017 11:14 09/19/2017 Venous) AM CDT 12:59 PM CDT Hoda Horton CABLE TENDER LAB BLOOD ADD-ON Performing Organization Address City/State/ZIP Code Phon e Number [facility] [place] [address] [place] [address] LAB BUN (Blood Urea Nitrogen) (09/19/2017 11:14 AM CDT) athologist Signature BUN (Blood Urea 7 6 - 21 09/19/2017 [facility] Nitrogen), S mg/dL 1:31 PM CDT [facility] [place] [facility] Specimen Anatomical Collection Method Collection Time Receive d Time (Source) Location / / Volume Laterality Blood (Blood, 09/19/2017 11:14 09/19/2017 Venous) AM CDT 12:59 PM CDT Hoda Akhtar Ludinwillian CABLE TENDER LAB BLOOD ADD-ON Performing Organization Address [facility] Phon e Number [facility] [address] [place] [phone] LAB S-TSH (Thyroid-Stimulating Hormone - Sensitive) (09/19/2017 11:14 AM CDT) athologist Signature TSH, Sensitive 2.2 0.3 - 4.2 09/19/2017 [facility] mIU/L 1:31 PM CDT [facility] Comment: Biotin has been identified by the prema mcguire as a potential interfering substance. ??Higher concentr ations of biotin may be found in multivitamins, hair/nail supple ments, and workout supplements. ??If the result does not ma tch clinical observations, repeat testing after patient refrains fr om the use of supplements for at least 12 hours. Specimen Anatomical Collection Method Collection Time Receive d Time (Source) Location / / Volume Laterality Blood (Blood, 09/19/2017 11:14 09/19/2017 Venous) AM CDT 12:59 PM CDT Hoda Akhtar Ludinwillian CABLE TENDER LAB BLOOD ADD-ON Performing Organization Address City/[facility] Phon e Number [facility] [address] [place] [phone] LAB Lipid Panel (09/19/2017 11:14 AM CDT) athologist Signature Cholesterol, 171 mg/dL 09/19/2017 [facility] Total 1:31 PM CDT [facility] Comment: ----REFERENCE VALUE---- Desirable: < 200 Borderline high: 200 - 239 High: > or = 240 Triglycerides 92 mg/dL 09/19/2017 1:31 PM CDT [facility] LAB Comment: ----REFERENCE VALUE---- Normal: <150 Borderline high: 150-199 High: 200-499 Very high: > or =500 Cholesterol, HDL, S 89 >=50 mg/dL 09/19/2017 1:31 PM CDT [facility] [place] [facility] Calculated LDL 64 mg/dL 09/19/2017 1:31 PM CDT [facility] [place] [facility] Comment: ----REFERENCE VALUE---- Desirable: <100 Above Desirable: 100-129 Borderline high: 130-159 High: 160-189 Very high: > or =190 Cholesterol, Non-HDL, 82 mg/dL 09/19/2017 1:31 PM CDT [facility] [place] [facility] Comment: ----REFERENCE VALUE---- Desirable: <130 Above Desirable: 130-159 Borderline high: 160-189 High: 190-219 Very high: > or =220 Specimen Anatomical Collection Method Collection Time Receive d Time (Source) Location / / Volume Laterality Blood (Blood, 09/19/2017 11:14 09/19/2017 Venous) AM CDT 12:59 PM CDT Hoda Horton CABLE TENDER LAB BLOOD ADD-ON Performing Organization Address City/State/ZIP Code Phon e Number [facility] [place] [address] [place] [address] LAB documented in this encounter Visit Diagnoses Diagnosis Medication Therapy Crusher Feeder Not Anticoa gulant Anxiety Generalized Disorder documented in this encounter Additional Health Concerns Assessment Noted Time PHQ-9 Depression Total Score: 6 04/03/2017 9:36 AM MOBILE ELECTRONICS INSTALLER documented as of this encounter Care Teams Lean Manager Relationship Specialty Start Date End Date Vadim Gaines M.D. PCP - General 09/14/16 11/18/17 documented as of this encounter
--- OUTSIDE RECORDS SUMMARY | 2022-02-02 11:03 | XMS_ITS | Encounter Summary ---
:1980 Author Organization [facility] Address [address] [place] [address] Care Team Providers Name Role Phone Vadim Gaines M.D. Primary Care Provider Reason for Visit Reason Comments Med Refill Encounter Details Date Type Department Care Team Description 08/08/2017 Refill Department of Obstetrics and Vargas, Mitzy Dominguez APRN, Med Refill Gynecology in [facility] [address] [place] [address] [place] [address] [facility] [phone] Social History Tobacco Use Types Packs/Day Years [...] do you attend moravian or Never 2019 jehovah's witness services? Do you belong to any clubs [...] Depression Total Score: 6 04/03/2017 9:36 AM AUTO PAINTER documented as of this encounter Care Teams Cold Patcher Relationship Specialty Start Date End Date Vadim Gaines M.D. PCP - General 09/14/16 11/18/17 documented as of this encounter
--- OUTSIDE RECORDS SUMMARY | 2022-02-02 11:03 | XMS_ITS | Encounter Summary ---
:1980 Author Organization [facility] Address [address] [place] [address] Care Team Providers Name Role Phone Vadim Gaines M.D. Primary Care Provider Reason for Visit Reason Comments Med Refill Encounter Details Date Type Department Care Team Description 09/03/2017 Refill Department of Obstetrics and Vargas, Mitzy Dominguez APRN, Med Refill Gynecology in [facility] [address] [place] [address] [place] [address] [facility] [phone] Social History Tobacco Use Types Packs/Day Years [...] do you attend adventism or Never 2019 roman catholic services? Do you belong to any [...] Depression Total Score: 6 04/03/2017 9:36 AM SURGICAL TERRITORY MANAGER documented as of this encounter Care Teams Garage Attendant Relationship Specialty Start Date End Date Vadim Gaines M.D. PCP - General 09/14/16 11/18/17 documented as of this encounter
--- OUTSIDE RECORDS SUMMARY | 2022-02-02 11:03 | XMS_ITS | Encounter Summary ---
:1980 Author Organization [facility] Address [address] [place] [address] Care Team Providers Name Role Phone Vadim Gaines M.D. Primary Care Provider Reason for Referral Outpatient (Routine) - Closed Specialty Diagnoses / Procedures Referred By Contact Refer red To Contact Diagnoses Vertigo Zoë Nick APRN, [facility] Procedures ECG 12 Lead FL EKG 12 LEAD TRACE ONLY FL EKG I&R ONLY C.N.P. [address], [place] [address] Referral ID Status Reason Start Date Expiration Date Visits Requ ested Visits Authorized [id number] Closed 04/03/2017 09/30/2017 1 1 USION LINE OPERATOR Reason for Visit Reason Comments Dizziness Dizzy and light headed spell s last 2 months. Feels foggy. When it does happen gets sweaty, nauseate d and shakey. Feels worse after eating Tired all the time, always thristy , weight gain, Memory problems and losing lots of hair. Encounter Details Date Type Department Care Team Description 04/03/2017 Office Visit Department of Family Vadim Gaines M.D. [address], [place] [address] [place] [address] Vertigo (Primary Dx); Medicine, [place] Zoë Nick APRN, C.N.P. [address] [phone] Bipolar I Disorder (HCC); Clinic, in [place], Anxiet y Generalized Disorder [place] [address] [address] Social History Tobacco Use Types Packs/Day Years Used Date Smoking Tobacco: Every Day Smokeless Tobacco: Former Snuff Tobacco Cessation: Ready to Quit: No Alcohol Use Standard Drinks/Week Comments Yes [...] do you attend taoism or Never 2019 congregational services? Do you [...] to pay for the very basics like Naeem woodruff 10/24/2019 food, housing, medical care, and heating? [...] Sign Reading Time Taken Comments Blood Pressure 142/88 04/03/2017 9:35 AM EXTRUSION LINE OPERATOR Pulse 88 04/03/2017 9:27 AM EXTRUSION LINE OPERATOR Temperature 36.9 ??C (98.4 ??F) 04/03/2017 9:27 AM EXTRUSION LINE OPERATOR Respiratory Rate 16 04/03/2017 9:27 AM EXTRUSION LINE OPERATOR Oxygen Saturation - - Inhaled Oxygen Concentration - - Weight 85.5 kg (188 lb 7.9 oz) 04/03/2017 9:27 AM EXTRUSION LINE OPERATOR Height - - Body Mass Index 31.4 12/18/2016 11:18 AM CDT documented in this encounter Patient Instructions Patient InstructionsZoë Nick, EXECUTIVE SECRETARY, C.N.P. - 04/03/2017 9:15 AM EXTRUSION LINE OPERATOR It was a pleasure seeing you in the clinic! My goal is to always provide excellent care for my patients. If you receive a clinic survey in the mail and felt you received great care, I would sure appreciate you filling it out and sending it in. Thanks and take care! USION LINE OPERATOR AttachmentsThe following attachments cannot be sent through Care Everywhere. Dizziness (Divehi)documented in this encounter Progress Notes Zoë Nick APRN CSarahN.P. - 04/03/2017 9:15 AM CST SUBJECTIVE CHIEF COMPLAINT: Chief Complaint Patient presents with ??? Dizziness Dizzy and light headed spells last 2 months. Feels foggy. When it does happen gets sweaty, nauseated and shakey. Feels worse after eating Tired all the time, always thristy, weight gain, Memory problems and losing lots of hair. HISTORY OF PRESENT ILLNESS: Marlin states she has had episodes of lightheadedness off and on for the past couple of months. Her mom was recently diagnosed with type 2 diabetes and she is very concerned about having diabetes herself. She states she notices the dizziness more after she eats, she feels nauseated and shaky. She has increased fatigue. She has bipolar disorder and generalized anxiety disorder. She follows with a psychiatrist and saw her about 2 months ago. She feels her psychiatric meds are well controlled. REVIEW OF SYSTEMS: The following portions of the patient's history [...] day as needed., Disp: , Rfl: ??? diphenhydrAMINE (for_BENADRYL) 50 mg capsule, Take 50 mg by mouth every 6 (six) hours as needed., Disp: , Rfl: ??? doxycycline (for_ADOXA) 100 mg tablet, Take 1 tablet by mouth 2 (two) times a day as needed., Disp: , Rfl: ??? lamoTRIgine (for_LaMICtal) 200 mg tablet, Take 200 mg by mouth daily., Disp: , Rfl: ??? lithium carbonate 300 mg tablet, Take 900 mg by mouth at bedtime. , Disp: , Rfl: ??? melatonin 3 mg tablet, Take 1 tablet by mouth at bedtime as needed. , Disp: , Rfl: ??? OLANZapine (for_ZyPREXA) 7.5 mg tablet, Take 1 tablet by mouth daily., Disp: , Rfl: ??? propranolol (for_INDERAL) 10 mg tablet, Take 1 tablet by mouth as needed., Disp: , Rfl: ??? rizatriptan (MAXALT) 10 mg tablet, Take 1 tablet by mouth See Admin Instructions., Disp: , Rfl: ??? meclizine (for_ANTIVERT) 25 mg tablet, Take 1 tablet (25 mg total) by mouth 3 (three) times a day as needed for dizziness., Disp: 30 tablet, Rfl: 0 OBJECTIVE LABS and DIAGNOSTICS: CBC, BMP, TSH are pending. VITAL SIGNS: Temperature: [36.9 ??C] 36.9 ??C Resp Rate: [16] 16 Blood Pressure: (128-142)/(86-88) 142/88 Pulse Rate: [88] 88 PHYSICAL EXAM: GENERAL: In general, the patient [...] are +2 and symmetrical. ASSESSMENT /PLAN: #1 Vertigo Worsening, checking labs today including CBC, BMP and TSH. I will contact her with abnormal results.Meclizine 25 mg, 1 tab up to 3 times daily as needed for dizziness. She understands it may make her drowsy and will use caution. #2 Bipolar I Disorder (HCC) Stable on Lamictal, lithium and Zyprexa. Continue to follow with Psychiatry for medication management. #3 Anxiety Generalized Disorder Stable on Inderal 10 mg daily as needed. HEALTH MAINTENANCE: Up-to-date. USION LINE OPERATOR documented in this encounter Plan of Treatment Not on filedocumented as of this encounter Procedures Procedure Name Priority Date/Time Associated Diagnosis Comme nts ECG Routine 04/03/2017 10:15 AM Vertigo Results for this EXTRUSION LINE OPERATOR procedure are i n the results section. CBC WITH Routine 04/03/2017 10:13 AM Vertigo Results for this DIFFERENTIAL, B EXTRUSION LINE OPERATOR procedure ar e in the results section. THYROID-STIMULATING Routine 04/03/2017 10:13 AM Vertigo R esults for this HORMONE-SENSITIVE EXTRUSION LINE OPERATOR procedure are in (S-TSH) the results section. BASIC METABOLIC Routine 04/03/2017 10:13 AM Vertigo Resul ts for this PANEL, S/P EXTRUSION LINE OPERATOR procedure are i n the results section. documented in this encounter Results ECG 12 Lead (04/03/2017 10:15 AM EXTRUSION LINE OPERATOR) [facility] Method Time Signature Ventricular 88 BPM MUSE Rate ECG/Min FL Interval 120 ms MUSE QRSD Interval 74 ms MUSE QT Interval 390 ms MUSE QTC Interval 471 ms MUSE P [place] 65 degrees MUSE R [place] 24 degrees MUSE T Wave [place] 5 degrees MUSE Clinical Normal sinus rhythm MUSE Diagnosis Normal ECG When compared with ECG of 30-NOV-2012 06:57, No significant change was found Specimen Anatomical Collection Method Collection Time Receive d Time (Source) Location / / Volume Laterality 04/03/2017 10:15 04/03/2017 AM EXTRUSION LINE OPERATOR 10:43 AM EXTRUSION LINE OPERATOR Narrative This result has an attachment that is no t available. Zoë Nick APRN, C.N.P. ECG ORDERABLES Performing Organization Address City/State/ZIP Code Phon e Number [facility]IE HADDAD NA S-TSH (Thyroid-Stimulating Hormone - Sensitive) (04/03/2017 10:13 AM EXTRUSION LINE OPERATOR) P athologist Signature TSH, Sensitive 2.8 0.3 - 4.2 04/03/2017 [facility] mIU/L 3:23 PM [facility] [place] [facility] Comment: Biotin has been identified by the prema mcguire as a potential interfering substance. ??Higher concentr ations of biotin may be found in multivitamins, hair/nail supple ments, and workout supplements. ??If the result does not ma [facility] clinical observations, repeat testing after patient refrains fr om the use of supplements for at least 12 hours. Specimen Anatomical Collection Method Collection Time Receive d Time (Source) Location / / Volume Laterality Blood 04/03/2017 10:13 04/03/2017 1:23 AM EXTRUSION LINE OPERATOR PM EXTRUSION LINE OPERATOR Zoë Nick APRN, C.N.P. LAB BLOOD ADD-ON Performing Organization Address City/State/ZIP Code Phon e Number [facility] [place] [address] [place] [address] LAB (ABNORMAL) CBC with Differential (04/03/2017 10:13 AM EXTRUSION LINE OPERATOR) [facility] Method Time Signature Hemoglobin 14.0 11.6 - 04/03/2017 [facility] 15.0 g/dL 10:49 AM [employer] [facility] Hematocrit 42.1 35.5 - 04/03/2017 [facility] 44.9 % 10:49 AM EXTRUSION LINE OPERATOR [employer] [facility] Erythrocytes 4.27 3.92 - 04/03/2017 [facility] 5.13 10:49 AM EXTRUSION LINE OPERATOR [employer] x10(12)/[employer] LAB MCV 98.6 (H) 78.2 - 04/03/2017 [facility] 97.9 fL 10:49 AM [employer] [facility] RBC Distrib Width 12.4 12.2 - 04/03/2017 [facility] 16.1 % 10:49 AM EXTRUSION LINE OPERATOR [employer] [facility] Platelet Count 298 157 - 371 04/03/2017 [facility] x10(9)/L 10:49 AM EXTRUSION LINE OPERATOR [facility] [place] [facility] Leukocytes 6.6 3.4 - 9.6 04/03/2017 [facility] x10(9)/L 10:49 AM EXTRUSION LINE OPERATOR [facility] Neutrophils 4.24 1.56 - 04/03/2017 [facility] 6.45 10:49 AM EXTRUSION LINE OPERATOR [facility]ALTH x10(9)/L [facility] [place] [facility] Lymphocytes 1.56 0.95 - 04/03/2017 [facility] 3.07 10:49 AM EXTRUSION LINE OPERATOR [facility]ALTH x10(9)/L [facility] [place] [facility] Monocytes 0.63 0.26 - 04/03/2017 [facility] 0.81 10:49 AM EXTRUSION LINE OPERATOR [facility]ALTH x10(9)/L [facility] [place] [facility] Eosinophils 0.17 0.03 - 04/03/2017 [facility] 0.48 10:49 AM EXTRUSION LINE OPERATOR HEALTH x10(9)/L [facility] [place] [facility] Basophils 0.02 0.01 - 04/03/2017 [facility] 0.08 10:49 AM EXTRUSION LINE OPERATOR [facility]ALTH x10(9)/L [facility] [place] [facility] Specimen Anatomical Collection Method Collection Time Receive d Time (Source) Location / / Volume Laterality Blood 04/03/2017 10:13 04/03/2017 AM EXTRUSION LINE OPERATOR 10:39 AM EXTRUSION LINE OPERATOR Genna Minor APRNN.P. LAB BLOOD ADD-ON Performing Organization Address City/State/ZIP Code Phon e Number [facility] [address] [place], [place] [address] [address] [place] [address] [place] [facility] BMP (Basic Metabolic Panel) (04/03/2017 10:13 AM EXTRUSION LINE OPERATOR) P athologist Signature Potassium, S 4.6 3.6 - 5.2 04/03/2017 [facility] mmol/L 3:23 PM [facility] [place] [facility] Sodium, S 140 135 - 145 04/03/2017 [facility] mmol/L 3:23 PM [facility] Chloride, S 98 98 - 107 04/03/2017 [facility] mmol/L 3:23 PM [facility] [place] [facility] Bicarbonate, S 28 22 - 29 04/03/2017 [facility] mmol/L 3:23 PM [facility] [place] [facility] Anion Gap 14 7 - 15 04/03/2017 [facility] 3:23 PM [facility] [place] [facility] BUN (Blood Urea 11 6 - 21 04/03/2017 [facility] Nitrogen), S mg/dL 3:23 PM [facility] [place] [facility] Creatinine 0.71 0.59 - 04/03/2017 [facility] 1.04 mg/dL 3:23 PM [facility] [place] [facility] eGFR >90 >=60 04/03/2017 [facility] Non-Black/Afric mL/min/BSA 3:23 PM [facility] [place] [facility] Comment: ----ADDITIONAL INFORMATION---- Estimated GFR calculated using the 2009 CKD_EPI creatinine equation. eGFR Black/ >90 >=60 mL/min/BSA 04/03/2017 3:23 PM [facility] [place] [facility] Comment: ----ADDITIONAL INFORMATION---- Estimated GFR calculated using the 2009 CKD_EPI creatinine equation. Calcium, Total, S 9.9 8.9 - 10.1 mg/dL 04/03/2017 3 :23 PM [facility] [place] [facility] Glucose, S 92 70 - 140 mg/dL 04/03/2017 3:23 PM [facility] [place] [facility] Specimen Anatomical Collection Method Collection Time Receive d Time (Source) Location / / Volume Laterality Blood 04/03/2017 10:13 04/03/2017 1:23 AM EXTRUSION LINE OPERATOR PM EXTRUSION LINE OPERATOR Zoë Nick APRN C.N.P. LAB BLOOD ADD-ON Performing Organization Address City/State/ZIP Code Phon e Number [facility] [address] [place] [address] LAB documented in this encounter Visit Diagnoses Diagnosis Vertigo - Primary Bipolar I Disorder (HCC) Anxiety Generalized Disorder documented in this encounter Additional Health Concerns Assessment Noted Time PHQ-9 Depression Total Score: 6 04/03/2017 9:36 AM EXTRUSION LINE OPERATOR documented as of this encounter Care Teams Personalization Specialist Relationship Specialty Start Date End Date Vadim Gaines M.D. PCP - General 09/14/16 11/18/17 documented as of this encounter
--- OUTSIDE RECORDS SUMMARY | 2022-02-02 11:03 | XMS_ITS | Encounter Summary ---
:1980 Author Organization [facility] Address [address] [place] [address] Care Team Providers Name Role Phone Vadim Gaines M.D. Primary Care Provider Encounter Details Date Type Department Care Team Description 06/06/2017 Orders Only Department of Obstetrics Yi Kaye, and Gynecology in [facility] [address] [place] [address] [place] [address] [phone] Social History Tobacco Use Types Packs/Day Years [...] do you attend voodoo or Never 2019 advent services? Do you [...] Depression Total Score: 6 04/03/2017 9:36 AM LUMBER TALLIER documented as of this encounter Care Teams Welder Tech Relationship Specialty Start Date End Date Vadim Gaines M.D. PCP - General 09/14/16 11/18/17 documented as of this encounter
--- OUTSIDE RECORDS SUMMARY | 2022-02-02 11:03 | XMS_ITS | Encounter Summary ---
:1980 Author Organization [facility] Address [address] [place] [address] Care Team Providers Name Role Phone Vadim Gaines M.D. Primary Care Provider Encounter Details Date Type Department Care Team Description 03/22/2017 Abstract Department of Family Medicine, Provider, Historical [facility], in [place], [place] [address] [place] [address] [facility] [phone] Social History Tobacco Use Types Packs/Day Years Used Date Smoking Tobacco: Every Day Alcohol Habits Answer Date Recorded How often [...] do you attend jain or Never 2019 samaritan services? Do you belong to any clubs [...] Assessment Noted Time PHQ-9 Depression Total Score: 8 09/20/2015 11:24 AM CD T documented as of this encounter Care Teams Open Soaper Tender Relationship Specialty Start Date End Date Vadim Gaines M.D. PCP - General 09/14/16 11/18/17 documented as of this encounter
--- OUTSIDE RECORDS SUMMARY | 2022-02-02 11:03 | XMS_ITS | Encounter Summary ---
:1980 Author Organization [facility] Address [address] [place] [address] Care Team Providers Name Role Phone Vadim Gaines M.D. Primary Care Provider Reason for Visit Reason Comments Communication Encounter Details Date Type Department Care Team Description 06/07/2017 Clinical Communication Department of [facility] Phil Kaye Communication Medicine in , [place], [place], [place] [address] [place] [phone] Social History Tobacco Use Types Packs/Day [...] or relatives? How often do you attend gnosticism or Never 2019 lutheran services? Do you belong to any clubs or No 01/29/2019 organizations such as gnosticism groups, unions, fraternal or athletic groups, or [...] Miscellaneous Notes Telephone Encounter - Jessica Morales RShashank. - 06/07/2017 4:51 PM CST Spoke with patient, she was wanting her test results from her appointment yesterday as she was not able to login to the portal. Results were given, all questions answered at this time. ONHOLE MAKER HAND Telephone Encounter - Rosangela Hodge - 06/07/2017 12:44 PM CST Patient was seen yesterday, would like to discuss yesterday appt ONHOLE MAKER HAND documented in this encounter Plan of Treatment Not on filedocumented as of this encounter Visit Diagnoses Not on filedocumented in this encounter Additional Health Concerns Assessment Noted Time PHQ-9 Depression Total Score: 6 04/03/2017 9:36 AM BUTTONHOLE MAKER HAND documented as of this encounter Care Teams Crop And Soil Technician Relationship Specialty Start Date End Date Vadim Gaines M.D. PCP - General 09/14/16 11/18/17 documented as of this encounter
--- OUTSIDE RECORDS SUMMARY | 2022-02-02 11:03 | XMS_ITS | Encounter Summary ---
:1980 Author Organization [facility] Address [address] [place] [address] Care Team Providers Name Role Phone Vadim Gaines M.D. Primary Care Provider Reason for Visit Reason Comments Communication Encounter Details Date Type Department Care Team Description 04/11/2017 Clinical Communication Department of Bibi Ocampo, Communication Medicine, [place] TIM, C.N.P. [facility], in [facility] [address] [place], [place] [address] [facility] [address] [place], [place] [phone] [address] (Work) [phone] Social History Tobacco Use Types Packs/Day Years [...] or relatives? How often do you attend mormonism or Never 2019 confucianism services? Do you belong to any clubs or No 01/29/2019 organizations such as mormonism groups, unions, fraternal or athletic groups, or [...] Encounter - Zoë Nick APRN, C.N.P. - 04/11/2017 11:37 AM FLOOR SANDING MACHINE OPERATOR Returned call to patient. Questions answered. R SANDING MACHINE OPERATOR Telephone Encounter - Yanira Mari R.N. - 04/11/2017 10:36 AM CST Patient is inquring about the MCV level in her CBC in regards to a letter Zoë sent her on 04/03/17. Patient notices that this is above the normal range and wondering if it could be related to symptomsshe was experiencing like dizziness and fatigue, and what this level means. Would like a call back when addressed. R SANDING MACHINE OPERATOR Telephone Encounter - Lexie Kaye - 04/11/2017 10:03 AM CST Patient called. She would like to discuss her recent labs, she did receive the letter but has a few concerns. Please call her back at [phone] R SANDING MACHINE OPERATOR documented in this encounter Plan of Treatment Not on filedocumented as of this encounter Visit Diagnoses Not on filedocumented in this encounter Additional Health Concerns Assessment Noted Time PHQ-9 Depression Total Score: 6 04/03/2017 9:36 AM FLOOR SANDING MACHINE OPERATOR documented as of this encounter Care Teams Manager Of Global Relationship Specialty Start Date End Date Vadim Gaines M.D. PCP - General 09/14/16 11/18/17 documented as of this encounter
--- OUTSIDE RECORDS SUMMARY | 2022-02-02 11:03 | XMS_ITS | Encounter Summary ---
:1980 Author Organization [facility] Address [address] [place] [address] Care Team Providers Name Role Phone Vadim Gaines M.D. Primary Care Provider Encounter Details Date Type Department Care Team Description 09/24/2017 Orders Only Department of Obstetrics Yi Kaye, and Gynecology in [facility] [address] [place] [address] [place] [address] [facility] [phone] Social History Tobacco Use Types Packs/Day Years [...] do you attend christianity or Never 2019 voodoo services? Do you belong to any clubs [...] Depression Total Score: 6 04/03/2017 9:36 AM JUVENILE JUSTICE OFFICER documented as of this encounter Care Teams Residential Tech Relationship Specialty Start Date End Date Vadim Gaines M.D. PCP - General 09/14/16 11/18/17 documented as of this encounter
--- OUTSIDE RECORDS SUMMARY | 2022-02-02 11:03 | XMS_ITS | Encounter Summary ---
:1980 Author Organization [facility] Address [address] [place] [address] Care Team Providers Name Role Phone Vadim Gaines M.D. Primary Care Provider Reason for Visit Reason Comments Vaginitis/Bacterial Vaginosis Mass right side of vagina, pea si ze Menstrual Problem Comes and goes for the past 6 months Outpatient (Routine) - Closed Specialty Diagnoses / Procedures Referred By Contact Refer red To Contact Obstetrics and Diagnoses PAR Review Yi Kaye, [facility] Gynecology CHILD CARE TEAM LEAD, C.N.P. [address] [place] [address] Referral ID Status Reason Start Date Expiration Date Visits Requ ested Visits Authorized [id number] Closed 06/05/2017 12/02/2017 1 1 Encounter Details Date Type Department Care Team Description 06/06/2017 Office Visit Department of Yi Kaye a (Primary Dx); Obstetrics and J, CHILD CARE TEAM LEAD, C.N.P. Management Contraceptive; Gynecology in [address]; [place], [place] Hidradenitis Suppurativa; [address] [address] Acute Vaginitis [place], [place] [phone] (Work) [phone] Social History Tobacco Use Types Packs/Day Years Used Date Smoking Tobacco: Every Day Cigarettes 1 Smokeless Tobacco: Current Snuff Tobacco Cessation: Ready to Quit: No; Co unseling Given: Yes Alcohol Use Standard Drinks/Week Comments Yes 0 [...] do you attend yarsani or Never 2019 taoism services? Do you [...] Sign Reading Time Taken Comments Blood Pressure 130/74 06/06/2017 11:04 AM CANAL BOAT OPERATOR Pulse 78 06/06/2017 11:04 AM CANAL BOAT OPERATOR Temperature - - Respiratory Rate 14 06/06/2017 11:04 AM CANAL BOAT OPERATOR Oxygen Saturation - - Inhaled Oxygen Concentration - - Weight 91.6 kg (201 lb 15.1 oz) 06/06/2017 11:04 AM CANAL BOAT OPERATOR Height 170.2 cm (5' 7) 06/06/2017 11:04 AM CANAL BOAT OPERATOR Body Mass Index 31.63 06/06/2017 11:04 AM CANAL BOAT OPERATOR documented in this encounter Progress Notes Yi Kaye, TIM, C.N.P. - 06/06/2017 11:15 AM CST CHIEF COMPLAINT/REASON FOR VISIT Chief Complaint Patient presents with ??? Vaginitis/Bacterial Vaginosis ??? Mass right side of vagina, pea size ??? Menstrual Problem Comes and goes for the past 6 months HISTORY OF PRESENT ILLNESS Marlin is a 37-year-old, para 1-2-1-3 (3 vaginal deliveries) who is unsure when her most recent menstrual period started. She notes that her periods are slightly irregular and they are very heavy and painful. She also describes bloating and severe fatigue with her periods. She notes her bleeding is soheavy that she will bleed through a super tampon in less than 1 hour. She has also started passing large clots. Typically her heavy bleeding lasts for approximately 3 days. Her has undergone vasectomy and she therefore is not utilizing any contraception at this point in time. She notes historyof ovarian cyst but has never had any surgery or procedures for them. Has been told in the past thatjennifer may have PCOS. At this point, she is interested in an intervention for her heavy menstrual bleeding. When I last saw her on 03/30/2016, we had discussed options. We reviewed those options today andjennifer is most interested in proceeding with a Mirena IUD insertion. We did spend time discussing the risks, benefits, and potential side effects, as well as the insertion and removal process. She has successfully utilize the Mirena IUD in the past. After obtaining her consent and following universal protocol, Mirena IUD was inserted successfully today. She does have a longstanding history of recurrent bacterial vaginitis. She notes that recently, her symptoms have not been clearing up totally with her oral metronidazole treatment. In the past she would get infections only if she and her had intercourse without condoms, but now she feels she gets the infection even when they do use condoms. Currently she is having some symptoms of irritation, increased discharge, and increased odor that is fishy. She would like vaginitis panel performed to rule out infection. She notes that she and her are monogamous but does consent to gonorrhea and chlamydia screening as well. She notes a concerns surrounding decreased libido over the last several months. She also describes occasional pain during intercourse with deep penetration. She notes that sometimes they can have intercourse and she has no pain but sometimes the pain is almost unbearable. She has not been able to relate this to her cycle. She did have an endovaginal and pelvic ultrasound performed on 04/06/2016, which noted a right ovarian 2.6 cm follicle. Findings were otherwise within normal limits and noted that this ultrasound did not meet criteria for PCOS. She also has concerns surrounding some sores that have been occurring between her legs for the last few years. She does use clindamycin topically on the area, but recently that has not been helping. She also was on oral doxycycline in the past for a brief period of time for treatment of the sores and that worked quite well for her. Currently she has multiple sores on her bilateral inner thighs, but there is 1 on her right side that is most bothersome. She describes white post C drainage and bleedingfrom that lesion. She notes this drainage gets on her pants and is very inconvenient. The site is also very painful. She is looking for other options for management of the symptoms. She does feel like the sores flare-up more when her fibromyalgia and rheumatoid arthritis are flaring, and both of thosehave been flaring for her recently. Her final concern for me today is surrounding a pea-sized lump that she noticed in her labia majora on the right side toward the bottom of the labia. This is not painful but she has noticed that it hasgrown in size. She 1st noticed the lump about 1 and half months ago when she was showering. She decided to have it checked out because it has grown in size since then. MEDICATIONS Current Outpatient Prescriptions Medication Sig Dispense Refill ??? cetirizine (for_ZyrTEC) 10 mg tablet Take 10 mg by mouth daily as needed. ??? clindamycin (for_CLEOCIN T) 1 % lotion Apply 1 application topically 2 (two) times a day as needed. ??? diphenhydrAMINE (for_BENADRYL) 50 mg capsule Take 50 mg by mouth every 6 (six) hours as needed. ??? doxycycline (for_ADOXA) 100 mg tablet Take 1 tablet by mouth 2 (two) times a day as needed. ??? lamoTRIgine (for_LaMICtal) 200 mg tablet Take 200 mg by mouth daily. ??? lithium carbonate 300 mg tablet Take 900 mg by mouth at bedtime. ??? meclizine (for_ANTIVERT) 25 mg tablet Take 1 tablet (25 mg total) by mouth 3 (three) times a dayas needed for dizziness. 30 tablet 0 ??? melatonin 3 mg tablet Take 1 tablet by mouth at bedtime as needed. ??? OLANZapine (for_ZyPREXA) 7.5 mg tablet Take 1 tablet by mouth daily. ??? propranolol (for_INDERAL) 10 mg tablet Take 1 tablet by mouth as needed. ??? rizatriptan (MAXALT) 10 mg tablet Take 1 tablet by mouth See Admin Instructions. ??? minocycline (for_MINOCIN,DYNACIN) 100 mg capsule Take 1 capsule (100 mg total) by mouth daily. 90 capsule 0 ??? triamcinolone (for_KENALOG) 0.1 % ointment Apply 1 application topically 3 (three) times a day. 30 g 1 No current facility-administered medications for this visit. ALLERGIES Allergies Allergen Reactions ??? Eszopiclone Nausea And Vomiting ??? Latex Other (see comments) ??? Morphine GI intolerance ??? Naproxen Sodium Other (see comments) ??? Piroxicam Rash PAST MEDICAL/SURGICAL HISTORY Past Medical History: Diagnosis Date ??? Abuse Tobacco Smoking ??? Allergy Seasonal ??? Arthritis Rheumatoid (HCC) ??? Bipolar I Disorder (HCC) ??? Fibromyalgia ??? Hidradenitis Suppurativa ??? Migraine Headache ??? Persistent Depressive Disorder ??? Posttraumatic Stress Disorder Prolonged ??? Raynaud's Disease ??? Reflux Esophageal Past Surgical History: Procedure Laterality Date ??? ARTHRODESIS OF ANKLE N/A 2001 Ankle fusion ??? DILATION AND CURETTAGE ??? REPAIR OF UMBILICAL HERNIA N/A Repair of umbilical hernia ??? VAGINAL DELIVERY ??? VAGINAL DELIVERY ??? VAGINAL DELIVERY PREVENTATIVE HEALTH Pap Smear: 09/02/2015: Normal cytology with negative high-risk Human Papilloma Virus. Gonorrhea/Chlamydia: Updated today. No history of positive findings. SOCIAL HISTORY Social History Social History ??? Marital status: Spouse name: N/A ??? Number of children: N/A ??? Years of education: N/A Occupational History ??? [employer] Social History Main Topics ??? Smoking status: Current Every Day Smoker Packs/day: 1.00 Types: Cigarettes ??? Smokeless tobacco: Current User Types: Snuff ??? Alcohol use Yes ??? Drug use: No ??? Sexual activity: Yes Partners: Male control/ protection: Vasectomy Other Topics Concern ??? None Social History Narrative ??? None FAMILY HISTORY Family History Problem Relation Age of Onset ??? Breast cancer Mother ??? Thyroid cancer Father ??? Rheum arthritis Grandmother ??? Fibromyalgia Sister VITAL SIGNS BP 130/74 (Cuff Size: Regular) Pulse 78 Resp 14 Ht 170.2 cm Wt 91.6 kg LMP (LMP Unknown) ? No BMI 31.63 kg/m?? DIAGNOSTICS Thyroid Stimulating Hormone was 2.8 on 04/03/2017. Hemoglobin was 14.0 on 04/03/2017. GC chlamydia and vaginitis panel obtained and pending. PHYSICAL EXAMINATION GENERAL: She is a well-appearing female, in no acute distress. SKIN: She does have a few lesions on her bilateral inner thighs suggestive of hydradenitis suppurativa. There is residual scarring noted as well. PELVIS: External genitalia appears healthy and normal. She does have a 1 cm cystic structure noted in the area of the Bartholin's gland on her right side. This cyst is mobile and nontender. Upon speculum exam vaginal mucosa appears pink and intact. Cervix is visualized, appears pink and intact. GC chlamydia obtained. Vaginitis panel obtained. Please see procedure note for Mirena IUD insertion. Upon bimanual exam there is no cervical motion tenderness, uterus is small mobile and nontender. Adnexa without masses or tenderness. MENTAL: Alert and oriented x3. Affect pleasant. Mood happy. IMPRESSION/REPORT/PLAN #1 Menorrhagia After reviewing her previous results, we discussed options for management of her heavy and painful menstrual flow. After discussing these options she was most interested in proceeding with Mirena IUD. We reviewed the risks, benefits, and potential side effects and her consent was obtained. Please see procedure note for details surrounding the insertion. I will see her back in 6 weeks for follow-up. #2 Management Contraceptive After reviewing her previous results, we discussed options for management of her heavy and painful menstrual flow. After discussing these options she was most interested in proceeding with Mirena IUD. We reviewed the risks, benefits, and potential side effects and her consent was obtained. Please see procedure note for details surrounding the insertion. I will see her back in 6 weeks for follow-up. #3 Bartholin's Gland Cyst Recommend observation, and no intervention at this point in time. If the cyst becomes painful, or causes her any problems, she will let me know, and I will get her scheduled as appropriate. #4 Hidradenitis Suppurativa I did provide her a printout on the condition from up-to-date. We spent time discussing management options. At this point she is most interested in proceeding with oral antibiotic and topical corticosteroid. Prescriptions have been faxed to her pharmacy. I will see her back in 6 weeks to see if the sym ptoms are improving. We also discussed proper care of the site, and I have provided her with some gauze to protect the area. Instructions were discussed in detail for proper use. She will contact me ifjennifer has any problems prior to her 6 week follow-up. #5 Acute Vaginitis Vaginitis panel was obtained. I will plan to portal message her or call her with those results when I have them and we will treat accordingly. Considering that the metronidazole has not been beneficialfor her, and has been causing her severe stomach discomfort, I will treat with vaginal clindamycin or Metrogel if positive for BV. L BOAT OPERATOR documented in this encounter Procedure Notes Yi Kaye APRN, C.N.P. - 06/06/2017 11:15 AM CSTAssociated Order(s): INTRAUTERINE DEVICE (IUD) - INSERTION/REINSERTION Post-Procedure Diagnose(s): Menorrhagia; Management Contraceptive SUBJECTIVE Ms. Plummer is a 37 y.o. here for Vaginitis/Bacterial Vaginosis; Mass (right side of vagina, pea size ); and Menstrual Problem (Comes and goes for the past 6 months ) History of Present Illness Marlin is a 37-year-old, para 1-2-1-3 (3 vaginal deliveries) who is unsure when her most recent menstrual period started. ??She notes that her periods are slightly irregular and they are very heavy andpainful. ??She also describes bloating and severe fatigue with her periods. She notes her bleeding is so heavy that she will bleed through a super tampon in less than 1 hour. She has also started passing large clots. Typically her heavy bleeding lasts for approximately 3 days. Her has undergone vasectomy and she therefore is not utilizing any contraception at this point in time. ??She notes history of ovarian cyst but has never had any surgery or procedures for them. ??Has been told in the past that she may have PCOS. At this point, she is interested in an intervention for her heavy menstrual bleeding. When I last saw her on 03/30/2016, we had discussed options. We reviewed those options today and she is most interested in proceeding with a Mirena IUD insertion. We did spend time discussing the risks, benefits, and potential side effects, as well as the insertion and removal process. Gage successfully utilize the Mirena IUD in the past. After obtaining her consent and following universal protocol, Mirena IUD was inserted successfully today. OBJECTIVE height is 170.2 cm and weight is 91.6 kg. Her blood pressure is 130/74 and her pulse is 78. Her respiration is 14. IUD - Insertion/Re-insertion/Removal Date/Time: 06/06/2017 12:47 PM Performed by: Yi Kaye Authorized by: Yi Kaye Care team members present: Jessica Morales RN Consent: Consent obtained: Written The benefits, risks and alternatives to the procedure and the potential need for sedation or anesthesia as well as the names, roles, and responsibilities of healthcare team members performing significant interventional tasks were discussed with the patient and/or decision maker.: yes [place] protocol: All relevant documentation and testing were reviewed and available. All required blood products, implants, devices and/or special equipment were made available as applicable. The pre-procedure verification was conducted, the correct site was marked if required, and the procedural time out was conducted prior to performing the procedure and confirmed in a procedural pause.: yes Pre-procedure details: Assessment - reasonably exclude based on: PREG criteria Indications: Menorrhagia Appropriate hand hygiene, gown, cap, mask, protective eyewear, sterile gloves, skin preparation, sterile drape, and strict aseptic technique were utilized as applicable for the procedure.: yes Site preparation: Povidone-iodine Sedation/Anesthesia (see MAR for exact dosages): Anesthesia method: None Procedure details: Procedure: Insertion Pelvic exam performed: yes GC/Chlamydia: Obtained today Tenaculum applied to cervix: yes Uterus sounded: yes Uterus sound depth (cm): 8 Strings length (cm): 2 cm IUD type: 1 each levonorgestrel 20 mcg/24 hr (5 years) Post-procedure details: Procedure completed successfully: yes Complications: no apparent complications ENGINEERING PROGRAM MANAGER ASSESSMENT / PLAN 1. Menorrhagia 2. Contraceptive management Plan: Post insertion instructions were discussed in detail. I would like to see her back in 6 weeks for follow-up. She was provided the manufacture's information booklet and the card with the insertionand removal dates on it. Her questions were all answered to her satisfaction. She tolerated the procedure well. She will contact me if she has any concerns or questions. Yi Kaye APRN, C.N.P. L BOAT OPERATOR documented in this encounter Plan of Treatment Not on filedocumented as of this encounter Procedures Procedure Name Priority Date/Time Associated Diagnosis Comme nts OBSTETRICS AND Routine 06/06/2017 12:52 GYNECOLOGY OFFICE PM CANAL BOAT OPERATOR VISIT (CLINIC) VAGINITIS PANEL Routine 06/06/2017 12:13 Acute Vaginitis Resul ts for this PM CANAL BOAT OPERATOR procedure are i n the results section. CHLAMYDIA/GONORRHOEAE Routine 06/06/2017 12:13 Management Re sults for this AMPLIFIED RNA PM CANAL BOAT OPERATOR Contraceptive procedure are in the results section. [place] INSERT OF Routine 06/06/2017 11:15 Menorrhagia Results for this INTRAUTERINE DEVICE AM CANAL BOAT OPERATOR Management procedur e are in Contraceptive the results section. documented in this encounter Results Obstetrics and Gynecology office visit (clinic) (06/06/2017 12:52 PM CANAL BOAT OPERATOR) Yi Kaye APRN, C.N.P. OUTPATIENT RETURN VISIT S Chlamydia / gonorrhoeae Amplified RNA Vagina (06/06/2017 12:13 PM CANAL BOAT OPERATOR) [facility] Method Time Signature Source VAGINA 06/07/2017 [facility] 10:54 AM [employer] [facility] Chlamydia Negative Negative 06/07/2017 [facility] trachomatis 10:54 AM [facility] Comment: ----ADDITIONAL INFORMATION---- This report is intended for use in clini madelaine monitoring and management of patients. It is not in tended for use in medical-legal applications. Source VAGINA 06/07/2017 10:54 AM [facility] [employer] [facility] Neisseria gonorrhoeae Negative Negative 06/07/2017 10:54 A M [facility] Nimbus Data RNA [employer] [facility] Comment: ----ADDITIONAL INFORMATION---- This report is intended for use in clini madelaine monitoring and management of patients. It is not in tended for use in medical-legal applications. Specimen Anatomical Collection Method Collection Time Receive d Time (Source) Location / / Volume Laterality Varies (Vagina) 06/06/2017 12:13 06/07/19 18 PM CANAL BOAT OPERATOR 11:19 PM CANAL BOAT OPERATOR Yi Kaye APRN, C.N.P. LAB MICROBIOLOGY - GENE RAL ORDERABLES Performing Organization Address City/[facility]/ZIP Code Phon e Number [facility] [address] [place] [address] LAB (ABNORMAL) Vaginitis Panel Vagina (06/06/2017 12:13 PM CANAL BOAT OPERATOR) [facility] gist Method Time Signature Isi Negative Negative 06/06/2017 [facility] species, DNA 1:51 PM CANAL BOAT OPERATOR [facility] Gardnerella Positive (A) Negative 06/06/2017 [facility] vaginalis, DNA 1:51 PM CANAL BOAT OPERATOR [facility] Trichomonas Negative Negative 06/06/2017 [facility] vaginalis, DNA 1:51 PM CANAL BOAT OPERATOR [facility] Specimen Anatomical Collection Method Collection Time Receive d Time (Source) Location / / Volume Laterality Swab (Vagina) 06/06/2017 12:13 06/06/2017 PM CANAL BOAT OPERATOR 12:35 PM CANAL BOAT OPERATOR Yi Kaye APRN, C.N.P. LAB MICROBIOLOGY - GENE RAL ORDERABLES Performing Organization Address City/[facility]/ZIP Code Phon e Number [facility] [address] [place] [id number] [facility] [address] [place] [address] [place] [address] [facility] [place] INSERT OF INTRAUTERINE DEVICE (06/06/2017 11:15 AM CANAL BOAT OPERATOR) Narrative [facility] - 06/06/2017 11:15 AM CANAL BOAT OPERATOR Yi Kaye APRN, C.N.P. ? 06/06/2017 12:52 PM IUD - ??Insertion/Re-insertion/Removal Date/Time: 06/06/2017 12:47 PM Performed by: Yi Kaye Authorized by: Yi Kaye Care team members present: ??Jessica Silvestre si, RN Consent: ??Consent obtained: ??Written ??The benefits, risks and alternatives to the procedure and the potential need for sedation or anesthesia as well as the names, roles, and responsibilities of healthcare team memb ers performing significant interventional tasks were discussed with the patient and/or decision maker.: yes ?? [place] protocol: ??All relevant documentation and testin g were reviewed and available. All required blood products, implants, devic es and/or special equipment were made available as applicable. The pre-pr ocedure verification was conducted, the correct site was marked i f required, and the procedural time out was conducted prior to performi ng the procedure and confirmed in a procedural pause.: yes ?? Pre-procedure details: ?? Assessment - reas onably exclude based on: ??PREG criteria ??Indications: ??Menorrhagia ??Appropriate hand hygiene, gown, cap, mask, protective eyewear, sterile gloves, skin preparation, sterile drape, and strict aseptic technique were utilized as applicable for the procedure .: yes ?Site preparation: ??Povidone-iodine Sedation/Anesthesia (see MAR for exact d osages): ??Anesthesia method: ??None Procedure details: ??Procedure: ??Insertion ??Pelvic exam performed: yes ?GC/Chlamydia: ??Obtained today ??Tenaculum applied to cervix: yes ?Uterus sounded: yes ?Uterus sound depth (cm): ??8 ??Strings length (cm): ??2 cm ??IUD type: 1 each levonorgestrel 20 mc g/24 hr (5 years) Post-procedure details: ??Procedure completed successfully: yes ?Complications: no apparent complicati ons ?? Yi Kaye APRN, C.N.P. OB GYNE ORDERABLES Performing Organization Address City/State/ZIP Code Phon e Number [facility] NA documented in this encounter Visit Diagnoses Diagnosis Menorrhagia - Primary Management Contraceptive Bartholin's Gland Cyst Hidradenitis Suppurativa Acute Vaginitis documented in this encounter Administered Medications Inactive Administered Medications - up to 3 most recent administrations Medication Order MAR Action Action Date Dose Rate Site levonorgestrel 20 mcg/24 hr (5 Given 06/06/2017 12:47 PM CANAL BOAT OPERATOR 1 e ach years) IUD 1 each (for_MIRENA) 1 each, intrauterine, One-Time, Starting on Sun06/06/17 at 1247, For 1 dose documented in this encounter Additional Health Concerns Assessment Noted Time PHQ-9 Depression Total Score: 6 04/03/2017 9:36 AM CANAL BOAT OPERATOR documented as of this encounter Care Teams Forging Press Setter Up Relationship Specialty Start Date End Date Vadim Gaines M.D. PCP - General 09/14/16 11/18/17 documented as of this encounter
--- OUTSIDE RECORDS SUMMARY | 2022-02-02 11:04 | XMS_ITS | Encounter Summary ---
:1980 Author Organization [facility] Address [address] [place] [address] Care Team Providers Name Role Phone Unavailable Primary Care Provider Unavailable Encounter Details Date Type Department Care Team Description 04/12/2016 Hospital Encounter HX [facility] Mitzy Boggs, WAREHOUSE LOGISTICS MANAGER, C.N.P. [address] [place] [address] (Wo rk) Social History Tobacco Use Types [...] or relatives? How often do you attend lutheran or Never 2019 hinduism services? Do you belong to any clubs or No 01/29/2019 organizations such as lutheran groups, unions, fraternal or athletic groups, or [...] Sign Reading Time Taken Comments Blood Pressure - - Pulse - - Temperature - - Respiratory Rate - - Oxygen Saturation - - Inhaled Oxygen Concentration - - Weight - - Height 165 cm (5' 4.96) 04/12/2016 9:25 AM CIVIL LABORATORY TECHNICIAN Body Mass Index - - documented in this encounter Medications at Time of Discharge Medication Sig Dispensed Refills Start Date End Date cetirizine (for_ZyrTEC) Take 10 mg by mouth 0 10 mg tablet daily as needed. lamoTRIgine 300 mg tablet Take 1 tablet by 0 /12/201504/03/2017 extended release 24hr mouth daily. melatonin 3 mg tablet Take 1 tablet by 0 03/30/20 16 12/18/2017 mouth at bedtime as needed. OLANZapine (for_ZyPREXA) Take 1 tablet by 0 03/3002/13/2018 7.5 mg tablet mouth daily. rizatriptan (MAXALT) 10 Take 1 tablet by 0 201512/18/2017 mg tablet mouth See Admin Instructions. rizatriptan (MAXALT) 10 Take 10 mg by mouth. 0 09/01/2019 mg tablet documented as of this encounter Plan of Treatment Not on filedocumented as of this encounter Visit Diagnoses Not on filedocumented in this encounter Additional Health Concerns Assessment Noted Time PHQ-9 Depression Total Score: 8 09/20/2015 11:24 AM CD T documented as of this encounter
--- OUTSIDE RECORDS SUMMARY | 2022-02-02 11:04 | XMS_ITS | Encounter Summary ---
:1980 Author Organization [facility] Address [address] [place] [address] Care Team Providers Name Role Phone Unavailable Primary Care Provider Unavailable Encounter Details Date Type Department Care Team Description 04/06/2016 Hospital Encounter HX [facility] ULTRASOUND Vargas, Phil ssica J, COST CONTROL SPECIALIST, C.N.P. [address] [place] [address] (Wo rk) Social History Tobacco [...] do you attend yarsani or Never 2019 restoration services? Do you belong to any clubs [...] - - Height 165 cm (5' 4.96) 04/06/2016 11:26 AM TRANSMISSION SUPERVISOR Body Mass Index - - documented in this encounter Medications at Time of Discharge Medication Sig Dispensed Refills Start Date End Date cetirizine (for_ZyrTEC) Take 10 mg by mouth 0 10 mg tablet daily as needed. lamoTRIgine 300 mg tablet Take 1 tablet by 0 03/0304/03/2017 extended release 24hr mouth daily. melatonin 3 [...] mg tablet documented as of this encounter Miscellaneous Notes Telephone Encounter - Conversion, Historical Provider Ser - 04/04/2016 8:53 AM CST *Phone Message Document Contains Addenda Addendum by HODAN CARLTON APRN, CNP on April 04, 2016 14:31:01 TRANSMISSION SUPERVISOR Called her back and discussed her results. All of her labs were normal. Also discussed her concerns. It sounds like a flare-up of her hidradenitis suppurativa. Rx for doxycycline and clindamycin were sent to [facility]. F/U in clinic if sxs not improving. Addendum by ASHELY DACOSTA RN on April 04, 2016 10:17:30 TRANSMISSION SUPERVISOR From: ASHELY DACOSTA RN ( Obstetrics/Gynecology Nurse) To: HODAN CARLTON APRN, CNP; Sent: 04/04/2016 10:17:30 TRANSMISSION SUPERVISOR Subject: FW: *Phone Message Please advise. From: ÁNGELA AYERS ( [facility] Explosive Ordnance Specialist) To: Obstetrics/Gynecology Nurse; Sent: 04/04/2016 08:53:03 TRANSMISSION SUPERVISOR Subject: *Phone Message Caller is: ( x ) Patient ( ) Mother ( ) Father ( ) Spouse ( ) Daughter ( ) Son ( ) Pharmacy ( ) Other: Physician: Hodan Patient MRN #: Reason for Call: Message: Marlin was seen last week and discussed an STD that she cant remember the name of. She saidthat she has blisters on her waistline/ legs/ and bottom. She said that one in particular is very painful, and she is not able to sit. She is neeidng advice. She is also wanting to know lab results. Thank you [phone] Advice/Action: Source used: ( ) Verbalizes understanding of instructions ( ) Instructed to call back if symptoms worsen or do not resolve ( ) Refused to see provider ( ) Appointment Scheduled ( ) OK to leave message on voice mail ( ) Patient told to expect return call: ( ) today ( ) tomorrow ( ) next work day ( ) Patient's email ( ) Patient told physician out of office, will call upon return call on ( ) ( ) Patient told physician out of office, routed to other physician ( ) Other ( ) Call back telephone number ( ) Call back cell phone number ( ) [facility] Document Id: [id number] documented in this encounter Plan of Treatment Not on filedocumented as of this encounter Procedures Procedure Name Priority Date/Time Associated Comments Diagnosis US PELVIS Routine 04/06/2016 11:48 Results for this TRANSABDOMINAL AM TRANSMISSION SUPERVISOR procedure are in the results section. documented in this encounter Results US Pelvis Transabdominal (04/06/2016 11:48 AM TRANSMISSION SUPERVISOR) Anatomical Region Laterality Modality Pelvis N/A Ultrasound Specimen (Source) Anatomical Collection Method Collection Time Re ceived Time Location / / Volume Laterality 04/06/2016 11:48 AM TRANSMISSION SUPERVISOR Addenda Addendum by Provider, Melody Montenegro 04/06/2016 11:48 AM TRANSMISSION SUPERVISOR RAD^^^OW US Pelvic 04/06/2016 11:48:23 Impressions 04/06/2016 12:44 PM TRANSMISSION SUPERVISOR 1. Right ovarian 2.6 cm follicle. 2. Findings do not meet criteria for clarissa ycystic ovarian syndrome on this transabdominal ultrasound. FINDINGS: Patient declined the transvagi nal exam. Only the transabdominal pelvic ultrasound exam wa s performed. Uterus: Normal size at 8.6 x 4.2 x 5.3 c m. No uterine masses. Endometrium: Normal thickness at 8 mm. Pelvic free fluid: none. Right adnexa: Right ovary has mildly enl arged size at 28 mL. 2.6 cm follicle. Few subcentimeter follicles. Left adnexa: Left ovary has borderline s ize at 20 mL. Few subcentimeter follicles. Bladder: Negative. Note: Androgen Excess and Polycystic Ova ry Syndrome Society (AE-PCOS) defines criteria for ultrasound polycyst ic ovary morphology as at least one ovary containing 25 or more fo llicles measuring 2-9 mm. Narrative 04/06/2016 12:44 PM TRANSMISSION SUPERVISOR EXAM: US Pelvic INDICATION: heavy/painful periods, hx pc os AGE: 36 years-old COMPARISON: None. Procedure Note Willy Diaz M.D. / Lan Felix M.D. - 09/18/2016 EXAM: US Pelvic INDICATION: heavy/painful periods, hx pc os AGE: 36 years-old COMPARISON: None. IMPRESSION: 1. Right ovarian 2.6 cm follicle. 2. Findings do not meet criteria for clarissa ycystic ovarian syndrome on this transabdominal ultrasound. FINDINGS: Patient declined the transvagi nal exam. Only the transabdominal pelvic ultrasound exam s performed. Uterus: Normal size at 8.6 x 4.2 x 5.3 c m. No uterine masses. Endometrium: Normal thickness at 8 mm. Pelvic free fluid: none. Right adnexa: Right ovary has mildly enl arged size at 28 mL. 2.6 cm follicle. Few subcentimeter follicles. Left adnexa: Left ovary has borderline s ize at 20 mL. Few subcentimeter follicles. Bladder: Negative. Note: Androgen Excess and Polycystic Ova ry Syndrome Society (AE-PCOS) defines criteria for ultrasound polycyst ic ovary morphology as at least one ovary containing 25 or more fo llicles measuring 2-9 mm. Simón Leung Jr., R.Maria.M.S. IMG US PROCEDURES documented in this encounter Visit Diagnoses Not on filedocumented in this encounter Additional Health Concerns Assessment Noted Time PHQ-9 Depression Total Score: 8 09/20/2015 11:24 AM CD T documented as of this encounter
--- OUTSIDE RECORDS SUMMARY | 2022-02-02 11:04 | XMS_ITS | Encounter Summary ---
:1980 Author Organization [facility] Address [address] [place] [address] Care Team Providers Name Role Phone Vadim Gaines M.D. Primary Care Provider Encounter Details Date Type Department Care Team Description 01/30/2017 Orders Only HX NO MAPPING Provider, Historical Social History Tobacco Use Types Packs/Day Years [...] do you attend scientology or Never 2019 adventism services? Do you [...] documented as of this encounter Care Teams Inspector Experimental Assembly Relationship Specialty Start Date End Date Vadim Gaines M.D. PCP - General 09/14/16 11/18/17 documented as of this encounter
--- OUTSIDE RECORDS SUMMARY | 2022-02-02 11:04 | XMS_ITS | Encounter Summary ---
:1980 Author Organization [facility] Address [address] [place] [address] Care Team Providers Name Role Phone Unavailable Primary Care Provider Unavailable Encounter Details Date Type Department Care Team Description 03/30/2016 Hospital Encounter HX [facility] Catrachita Gould Jr., M.D. [address], [place] [phone] (Wo rk) Social History Tobacco Use Types Packs/Day Years Used Date Smoking Tobacco: Never Assessed Alcohol Habits Answer Date Recorded How often [...] do you attend mu-ism or Never 2019 yazdanism services? Do you belong to any clubs [...] Sign Reading Time Taken Comments Blood Pressure 124/80 03/30/2016 11:42 AM TUFTER Pulse 84 03/30/2016 11:42 AM TUFTER Temperature - - Respiratory Rate - - Oxygen Saturation - - Inhaled Oxygen Concentration - - Weight 77.8 kg (171 lb 8.3 oz) 03/30/2016 11:42 AM TUFTER Height 165 cm (5' 4.96) 03/30/2016 11:42 AM TUFTER Body Mass Index 28.58 03/30/2016 11:42 AM TUFTER documented in this encounter Medications at Time [...] mg tablet documented as of this encounter Progress Notes Hodan Kaye, TIM, C.N.P. - 03/30/2016 11:06 AM CST [id number] CHIEF COMPLAINT/REASON FOR VISIT Heavy menstrual bleeding, urinary incontinence, galactorrhea and pelvic pain. HISTORY OF PRESENT ILLNESS Marlin is a 36-year-old, para 1-2-1-3 (3 vaginal deliveries) whose last menstrual period started approximately 1-1/2 weeks ago. She notes that her periods are very regular but they are very heavy and painful. Her has undergone vasectomy and she therefore is not utilizing any contraception at this point in time. She notes history of ovarian cyst but has never had any surgery or procedures for them. Has been told in the past that she may have PCOS. She describes a pain in her left side but at times is very sharp and at times radiates around to her back. She feels that the pain is always present in a dull fashion but does get more prominent from time to time. She is concerned she may have a cyst on her ovary. She also describes concerns surrounding her hair growth. She admits to some excessive hair growth onher chin to the point where she had to shave her chin. She underwent laser hair removal about 1 yearago but it has since grown back and she is quite upset about that. She also notes hair growth aroundher nipples and she has to tweeze those hairs which is very bothersome for her as well. She does have history of an elevated fasting glucose level of 108 that was earlier this year. She isbeing monitored for pre-diabetes. She does not have any history of gestational diabetes. She also has concerns surrounding leakage from her bilateral nipples. States that her youngest is 7 years old but that she is still leaking typically from the right it is a white to cream colored discharge and from the left it is more of a rodriguez colored discharge. Sometimes she will find this in her bra if she puts pressure on her breasts, she does experience leakage. She has history of mammogram performed because of her fibrocystic breasts and that was normal. She believes that was about 5 years ago. She also does have a family history of breast cancer. Her mom was diagnosed with breast cancer in her early 50s and is doing quite well at this time. Her maternal grandmother also has history of both breast and ovarian cancer. There has not been any genetic testing done that she is aware of. Also notes that lately if she and her have intercourse without condoms she will get a bacterial vaginosis infection and has been treated on and off for this but as long as she uses condoms she does not have any problems with infection. She was treated in the recent past for bacterial vaginosis. Her symptoms have completely resolved but she would like me to take a look and make sure that everything looks healthy in the vagina. She otherwise has no pain or problems with intercourse. In regard to her bladder function, she does have occasional bladder leakage that she believes is related to sneezing, coughing, running or other exercises and also going from a sitting to standing or standing to sitting position. It is just a small amount of leakage for the most part, but one time when she was running, she did have total loss of her bladder control. She occasionally experiences urgency but has not noticed any urinary urge incontinence. States that she is doing Kegel exercises. Has no signs or symptoms of urinary tract infection at this point in time. MEDICATIONS 1. Lamotrigine. 2. Lorazepam. 3. Lyrica. 4. Maxalt. 5. Melatonin. 6. Olanzapine. 7. Zyrtec. ALLERGIES 1. Feldene, reaction rash. 2. Latex. 3. Morphine, reaction nausea and vomiting. 4. Naproxen sodium. PAST MEDICAL/SURGICAL HISTORY PAST MEDICAL HISTORY: 1. Tobacco abuse. 2. Seasonal allergies. 3. Bipolar disorder. 4. Dysthymic. 5. Fibromyalgia. 6. Juvenile rheumatoid arthritis. 7. Migraine headaches. 8. PTSD. 9. Raynaud's disease. 10. Esophageal reflux. SURGICAL HISTORY: 1. Vaginal delivery x3. 2. D and C. 3. Ankle fusion. 4. Repair of umbilical hernia. VITAL SIGNS Heart rate 84, blood pressure 124/80, height 165, weight 77.8, BMI 28.58. FAMILY HISTORY History of breast cancer in her mother, diagnosed in her early 50s. She is alive and doing well. History of breast and ovarian cancer in her maternal grandmother who also had diabetes. History of thyroid cancer in her father and also one of her father's cousins had a history of thyroid cancer. PHYSICAL EXAMINATION GENERAL: She is a well-appearing female in no acute distress. SKIN: Warm, dry and pink. No rashes, lesions or bruising. BREASTS: Symmetrical, no lesions or dimpling of the skin noted. No dominant masses palpable. Nippleswithout inversion or drainage. ABDOMEN: Soft and nontender with the exception of the left lower quadrant into the pelvic region. She has some tenderness with palpation there. PELVIS: External genitalia appears healthy and normal. No erythema. No lesions noted. The uterus is negative upon speculum examination. Vaginal mucosa appears pink and intact. There is normal physiologic discharge present. Cervix is visualized, appears pink and intact. Bimanual exam is performed. Negative for cervical motion tenderness. Uterus is small, mobile, and nontender. Adnexa is nontender on the right side. On the left side, she has tenderness but no masses are appreciated. IMPRESSION/REPORT/PLAN 1. Galactorrhea. PLAN: Labs are being obtained including TSH, prolactin level also going to get a diagnostic mammogram and ultrasound. I will plan to call her with those results when I have them. 2. Menorrhagia. PLAN: Patient is most interested in managing with a Mirena intrauterine device but prior to placement I would like the ultrasound to be completed so that we have a better answer surrounding the pain she is experiencing in her left lower quadrant. Pre intrauterine device insertion instructions were given. She will premedicate with ibuprofen, eat food, take an anxiety medication if she desires and thenreturn either during or just after her period for placement if we deem it safe, 3. Pelvic pain. PLAN: Pelvic ultrasound has been ordered. I will plan to call her with those results. She is monogamous. Has no signs or symptoms of sexually transmitted infections and declines testing today. 4. Undesirable hair growth. PLAN: Spent time discussing her options as laser hair removal was not successful for her. Offered her prescription for Vaniqa due to cost, she is going to do some research online and see if she can find some coupons and to get it at a reduced level as it appears it is not covered by her insurance. Angela let me know if she would like that prescription filled in the future. 5. Stress urinary incontinence. PLAN: Discussed causes and treatments for stress urinary incontinence. It is minimally bothersome for her right now, but if she desires surgery in the future she will let me know so I can get her set up for that. 6. Possible polycystic ovary syndrome. PLAN: I have ordered some hormone levels. I will plan to call her with those results along with the ultrasound results. Discussed polycystic ovary syndrome in detail with her and things to be aware of including insulin resistance, endometrial protection although her periods are fairly regular at this point, et cetera. We will discuss further with her at her followup appointment once I have all of herresults. At this point, she has no additional concerns or questions. Hodan Kaye CNP/magdalena Electronically Signed By: HODAN KAYE APRN, CNP On: 03/31/2016 08:34 AM Modified by and Electronically Signed by: HODAN KAYE APRN, CNP On: 03/31/2016 08:34 AM Source: [facility] MHSDOLBEYNONRADSYS Document Id: [id number] ER documented in this encounter Miscellaneous Notes Telephone Encounter - Conversion, Historical Provider Ser - 06/05/2016 8:37 AM CST *Phone Message/Hodan Kaye Document Contains Addenda Addendum by HODAN KAYE APRN, CNP on June 05, 2016 09:37:53 TUFTER Called her to discuss. She is having another flare-up of her hidradenitis suppurativa and requesting rx for doxycycline as this worked very well for her in the past. I sent rx to [facility] and we discussed instructions. I also provided her with a couple of refills to use for future outbreaks as needed. Addendum by BOB LIANG CMA on June 05, 2016 08:39:27 TUFTER From: BOB LIANG CMA ( Obstetrics/Gynecology Nurse) To: HODAN KAYE APRN, CNP; Sent: 06/05/2016 08:39:27 TUFTER Subject: FW: *Phone Message/Hodan Kaye From: PARKER LARSEN ([facility] Tool Engine Lathe Set Up Operator) To: Obstetrics/Gynecology Nurse; Sent: 06/05/2016 08:37:49 TUFTER Subject: *Phone Message/Hodan Kaye Caller is: (x ) Patient ( ) Mother ( ) Father ( ) Spouse ( ) Daughter ( ) Son ( ) Pharmacy ( ) Other: Physician: Hodan Kaye Patient MRN #: Reason for Call: Message: Patient was seen by Hodan for a skin condition and given an antibiotic that worked for her. She states that she has bright red painful bumps again. She is wondering if Hodan could call in the anti-biotic for her again. Please call her back at [phone] to advise. Advice/Action: Source used: ( ) Verbalizes understanding [...] back cell phone number ( ) Source: [facility] POWERCHART Document Id: [id number] Miscellaneous - Hodan Kaye APRN, C.N.P. - 03/30/2016 12:45 PM TUFTER Ambulatory Patient Summary [address] [id number] Visit Information Name: MARLIN PLUMMER [facility] Number: [id number] Current Date: 03/30/2016 12:45:28 Physicians Attending Provider: CATRACHITA HENDERSON MD Primary Care Provider: HUY THOMAS MD MARLIN PLUMMER has been given the following list of follow-up instructions, medication list, and patient education materials: Follow-up Instructions Your Medications Here is a list of your medications. It is important to take your medications as directed. Use a pillbox or chart to help remind you to take your medications. Please let your doctor or nurse know if you have problems taking your medications. Medication/Strength How to Take Indications/Special Instructions/Comments/Notes for Patient Medication Changes/Routing cetirizine (ZyrTEC) 10 mg, Oral, once a day as needed for Allergy symptoms lamoTRIgine (lamoTRIgine 300 mg oral tablet, extended release) 1 Tablet(s), Oral, once a day This trish CHANGE lorazepam (lorazepam) 1 mg, Oral, every 6 hours as needed for Anxiety melatonin (melatonin 3 mg oral tablet) 1 Tablet(s), Oral This is a CHANGE OLANZapine (OLANZapine 7.5 mg oral tablet) 1 Tablet(s), Oral, once a day This is a CHANGE pregabalin (Lyrica 150 mg oral capsule) 1 cap, Oral, two times a day rizatriptan (Maxalt 10 mg oral tablet) 1 Tablet(s), Oral, as directed as needed for Migraine headache Take 1 tablet at onset of headache. Repeat after two hours if needed. Stop Taking the Following Medications: Misc Prescription (Misc Prescription) Medication list as of 03-30-16 12:45 Attention: If you have any medications at home that are not on this list, DO NOT take them until youcontact your provider for clarification. Give a copy of your medication list to your primary care provider. Update your medication list any time medications or doses are changed and carry your medication list at all times in case of emergency. Electronically Signed By: HODAN KAYE APRN DRY WALL FINISHER Signed On:30-MAR-2016 12:45:25 Your Allergies & Intolerances Substance Reaction Symptoms Category Comments morphine nausea, vomiting Drug Feldene Rash Drug Latex Drug Naproxen Sodium Drug Your Problem List Problem Status Onset Comments Juvenile rheumatoid arthritis Active Fibromyalgia Active Raynaud's phenomenon Active Esophageal reflux (GERD) Active Depression with Anxiety* Active Abuse Tobacco Smoking NOS Active Allergy Seasonal Active Bipolar I Disorder NOS Active Posttraumatic Stress Disorder (PTSD) Prolonged Active Migraine Headache (SANCHEZ) NOS Active Your Upcoming Appointments Date Time Location Provider 04/06/2016 11:30 [facility] Ultrasound [facility] US Room Attention: Contact your local Clinic if further appointment detail needed. Consider Using Patient Online Services Patient Online Services is a secure online and Mobile application that lets you: ?? View lab and test results ?? View portions of your medical record including clinical notes, immunizations and discharge summaries ?? Request an appointment or medication refill ?? Review your appointment schedule ?? Send secure messages to your care team Its easy to create an account if you dont have one. Go to [email or web address] and click on Create Your Account. Then, follow the directions to complete the online form. Youll be asked for your [facility] number which you can find at the top of this document. Your Goals/Additional instructions: Source: [facility] POWERCHART Document Id: [id number] ER Miscellaneous - Hodan Kaye APRN, C.N.P. - 03/30/2016 12:45 PM TUFTER Ambulatory Discharge Medication List [address] [id number] Visit Information Name: MARLIN PLUMMER [facility] Number: [id number] Current Date: 03/30/2016 12:45:27 Attending Provider: CATRACHITA HENDERSON MD Primary Care Provider: HUY THOMAS MD MARLIN PLUMMER has been given the following list of medications: Your Medications It is important to take your medications as directed. Use a pill box or chart to help remind you to take your medications. Please let your doctor or nurse know if you have problems taking your medications. Medication/Strength How to Take Indications/Special Instructions/Comments/Notes for Patient Medication Changes/Routing cetirizine (ZyrTEC) 10 mg, Oral, once a day as needed for Allergy symptoms lamoTRIgine (lamoTRIgine 300 mg oral tablet, extended release) 1 Tablet(s), Oral, once a day This trish CHANGE lorazepam (lorazepam) 1 mg, Oral, every 6 hours as needed for Anxiety melatonin (melatonin 3 mg oral tablet) 1 Tablet(s), Oral This is a CHANGE OLANZapine (OLANZapine 7.5 mg oral tablet) 1 Tablet(s), Oral, once a day This is a CHANGE pregabalin (Lyrica 150 mg oral capsule) 1 cap, Oral, two times a day rizatriptan (Maxalt 10 mg oral tablet) 1 Tablet(s), Oral, as directed as needed for Migraine headache Take 1 tablet at onset of headache. Repeat after two hours if needed. Stop Taking the Following Medications: Misc Prescription (Misc Prescription) Medication list as of 03-30-16 12:45 Attention: If you have any medications at home that are not on this list, DO NOT take them until youcontact your provider for clarification. Give a copy of your medication list to your primary care provider. Update your medication list any time medications or doses are changed and carry your medication list at all times in case of emergency. Electronically Signed By: HODAN KAYE APRN DRY WALL FINISHER Signed On:30-MAR-2016 12:45:25 Additional Information: Source: [facility] POWERCHART Document Id: [id number] ER Miscellaneous - Heather Jane L.P.N. - 03/30/2016 12:25 PM CST Fiber Optic Splicer Documentation Fiber Optic Splicer Documentation Entered On: 03/30/2016 12:26 TUFTER Performed On: 03/30/2016 12:25 TUFTER by HEATHER JANE LPN Fiber Optic Splicer Documentation Exam/Procedure Performed : Pelvic exam CD Fiber Optic Splicer Present : Yes CD Fiber Optic Splicer Name : Heather Jane LPN Present in Room During Exam/Procedure : Alone HEATHER JANE LPN - 03/30/2016 12:25 TUFTER Source: [facility] POWERCHART Document Id: [id number] ER Miscellaneous - Heather Jane L.P.NSarah - 03/30/2016 11:42 AM CST Adult Field Case Manager Intake/History Adult Field Case Manager Intake/History Entered On: 03/30/2016 11:45 TUFTER Performed On: 03/30/2016 11:42 TUFTER by HEATHER JANE LPN Intake Chief Complaint : PCOS, requests Mirena IUD Peripheral Pulse Rate : 84 /min Systolic Blood Pressure : 124 mmHg Diastolic Blood Pressure : 80 mmHg NIBP Mean : 95 mmHg BP Location : Left upper extremity Blood Pressure Cuff Size : Regular Height : 165 cm(Converted to: 5 ft 5 inch(es), 65 inch(es)) Actual Weight : 77.8 kg(Converted to: 171 lb 8 oz) Weight Source : Standing scale Dosing Weight Clinic : 77.8 kg Clinic BSA : 1.89 Body Mass Index : 28.58 kg/m2 HEATHER JANE LPN - 03/30/2016 11:42 TUFTER General Info Information Given By : Patient Languages : Faroese Is Patient Female and 13-50 no hysterectomy : Yes Status : Patient denies Are you ? : No HEATHER JANE LPN - 03/30/2016 11:42 TUFTER Subjective Pain Symptoms : No HEATHER JANE LPN - 03/30/2016 11:42 TUFTER Dependent Habits Exposure to Tobacco Smoke : Patient smokes Smoking Status : Current every day smoker Tobacco 2A : Yes Tobacco Use/Currently Using : Yes Tobacco Use/Last 30 Days : Yes Tobacco Use/Last 12 months : Yes Type : Cigarettes: Less than 20 per day Tobacco Use/Advised to Quit : Yes HEATHER JANE [facility] - 03/30/2016 11:42 TUFTER Caffeine Use Grid Caffeine Use : Current Type : Coffee, Soft drinks Frequency : Daily HEATHER JANE [facility] - 03/30/2016 11:42 TUFTER Recreational Drug Use Grid Drug Use : None HEATHER JANE [facility] - 03/30/2016 11:42 TUFTER Source: [facility] POWERCHART Document Id: [id number] ER documented in this encounter Plan of Treatment Not on filedocumented as of this encounter Procedures Procedure Name Priority Date/Time Associated Comments Diagnosis PROLACTIN, S Routine 03/30/2016 12:59 Results for PM TUFTER this procedure are in the results section. DEHYDROEPIANDROSTERONE (DHEA) Routine 03/30/2016 12:59 Results for LEVEL, S PM TUFTER this procedure are in the results section. TESTOSTERONE, TOT AND FR, S Routine 03/30/2016 12:59 Results for PM TUFTER this procedure are in the results section. THYROID-STIMULATING Routine 03/30/2016 12:59 Resu lts for HORMONE-SENSITIVE (S-TSH) PM TUFTER th is procedure are in the results section. documented in this encounter Results DHEA (DehydroepiAndrosterone Level) (03/30/2016 12:59 PM TUFTER) P athologist Signature Dehydroepiandro 5.9 <10 NGML POWERCHART Albert crowley Comment: ADDITIONAL INFORMATIO N This test was developed and its performa nce characteristics determined by [facility] in a manner co nsistent with CLIA requirements. This test has not been olimpia ared or approved by the U.S. Food and Drug Administration. Test Performed by: [address] [address] Driving Teacher: Jonnie Donnelly II, M.D., Ph.D. Specimen (Source) Anatomical Collection Method Collection Time Re ceived Time Location / / Volume Laterality Blood 03/30/2016 12:59 PM TUFTER Hodan Kaye APRN CSarahN.P. LAB BLOOD NON ADD-ON Performing Organization Address City/State/ZIP Code Phon e Number POWERCHART Testosterone, Total and Free (03/30/2016 12:59 PM TUFTER) P athologist Signature % Free 0.83 0.06 - POWERCHART Testosterone 1.03 NGDL Comment: ADDITIONAL INFORMATIO N Testing performed by Karen Pedersoni albert. This test was developed and its performa nce characteristics determined by [facility] in a manner co nsistent with CLIA requirements. This test has not been olimpia ared or approved by the U.S. Food and Drug Administration. Testosterone, Total 49 8 - 60 NGDL POWERCHA RT Comment: ADDITIONAL INFORMATIO N Testing performed by Liquid Chromatograp hy-Tandem Mass Spectrometry (LC-MS/MS). This test was developed and its performa nce characteristics determined by [facility] in a manner co nsistent with CLIA requirements. This test has not been olimpia ared or approved by the U.S. Food and Drug Administration. Test Performed by: [place] [address] Driving Teacher: Jonnie Donnelly II, M.D., Ph.D. Specimen (Source) Anatomical Collection Method Collection Time Re ceived Time Location / / Volume Laterality Blood 03/30/2016 12:59 PM TUFTER Hodan Kaye APRN C.N.P. LAB BLOOD NON ADD-ON Performing Organization Address City/State/[facility] Code Phon e Number POWERCHART Prolactin Level (03/30/2016 12:59 PM TUFTER) P athologist Signature Prolactin Total 5.8 3.0 - 27.0 POWERCHART NGML Comment: Biotin has been identified by the prema mcguire as a potential interfering substance. Higher concentrations of biotin may be found in multivitamins, hair/nail supplements, and workout supplements. If the result does not match clinical observat ions, repeat testing after patient refrains from the use of supplements for at least 12 hours. Specimen (Source) Anatomical Collection Method Collection Time Re ceived Time Location / / Volume Laterality Blood 03/30/2016 12:59 PM TUFTER Hodan Kaye APRN, C.N.P. LAB BLOOD ADD-ON Performing Organization Address City/State/ZIP Code Phon e Number POWERCHART Thyroid-Stimulating Hormone-Sensitive (s-TSH) (03/30/2016 12:59 PM TUFTER) P athologist Signature TSH 1.71 0.27 - 4.20 POWERCHART (Thyrotropin) CHARLIE Comment: Biotin has been identified by the prema mcguire as a potential interfering substance. Higher concentrations of biotin may be found in multivitamins, hair/nail supplements, and workout supplements. If the result does not match clinical observat ions, repeat testing after patient refrains from the use of supplements for at least 12 hours. Specimen (Source) Anatomical Collection Method Collection Time Re ceived Time Location / / Volume Laterality Blood 03/30/2016 12:59 PM TUFTER Hodan Kaye APRN, C.N.P. LAB BLOOD ADD-ON Performing Organization Address City/State/ZIP Code Phon e Number POWERCHART documented in this encounter Visit Diagnoses Not on filedocumented in this encounter Additional Health Concerns Assessment Noted Time PHQ-9 Depression Total Score: 8 09/20/2015 11:24 AM CD T documented as of this encounter
--- OUTSIDE RECORDS SUMMARY | 2022-02-02 11:04 | XMS_ITS | Encounter Summary ---
:1980 Author Organization [facility] Address [address] [place] [address] Care Team Providers Name Role Phone Vadim Gaines M.D. Primary Care Provider Encounter Details Date Type Department Care Team Description 10/02/2016 Hospital Encounter HX NO MAPPING Juan Jose Espinal i, M.D. [address] [place], [place] [phone] (Wo rk) Social History Tobacco Use Types [...] do you attend catholic or Never 2019 islam services? Do you belong to any clubs or No 01/29/2019 organizations such as catholic groups, unions, fraternal or athletic groups, or [...] documented as of this encounter Miscellaneous Notes Miscellaneous - Conversion, Historical Provider Ser - 10/02/2016 11:59 PM CDT Coding Summary-Paper Based CODING DATE: 10/12/2016 FINAL [facility] STATUS: * Discharged to Home or Self Care PAYOR: [facility] ADMIT DX: REASON FOR VISIT DX: FINAL DX: PRINCIPAL: F31.0 Bipolar disorder, current episode hypomanic SECONDARY: F32.0 Major depressive disorder, single episode, mild Z51.81 Encounter for therapeutic drug level monitoring Z79.899 Other [facility] (current[facility] drug therapy PROCEDURES DOCTOR NAME DATE NOTE: The code number assigned matches the documented diagnosis and / or procedure in the patient's chart. However, the narrative phrase printed from the coding software may appear abbreviated, or result in slightly different terminology. Coded By: MATTHEW WILKINSON REPAIRING CALIBRATOR Date Saved: 10/12/2016 06:35 am Source: [facility]ITAL[facility] Document Id: [id number] documented in this encounter Plan of Treatment Not on filedocumented as of this encounter Visit Diagnoses Not on filedocumented in this encounter Additional Health Concerns Assessment Noted Time PHQ-9 Depression Total Score: 8 09/20/2015 11:24 AM CD T documented as of this encounter Care Teams Clay Miller Relationship Specialty Start Date End Date Vadim Gaines M.D. PCP - General 09/14/16 11/18/17 documented as of this encounter
--- OUTSIDE RECORDS SUMMARY | 2022-02-02 11:04 | XMS_ITS | Encounter Summary ---
:1980 Author Organization [facility] Address [address] [place] [address] Care Team Providers Name Role Phone Unavailable Primary Care Provider Unavailable Encounter Details Date Type Department Care Team Description 03/08/2016 Hospital Encounter HX [facility] Philippe Astudillo, MANAGER OPERATIONS RESEARCH, C.N.P. [address] [place], [place] [phone] (Wo rk) Social History [...] do you attend tenriism or Never 2019 hinduism services? Do you [...] Sign Reading Time Taken Comments Blood Pressure 118/72 03/08/2016 10:36 AM BIAS MACHINE OPERATOR Pulse 88 03/08/2016 10:36 AM BIAS MACHINE OPERATOR Temperature - - Respiratory Rate 20 03/08/2016 10:36 AM BIAS MACHINE OPERATOR Oxygen Saturation - - Inhaled Oxygen Concentration - - Weight 77.7 kg (171 lb 4.8 oz) 03/08/2016 10:36 AM BIAS MACHINE OPERATOR Height 165 cm (5' 4.96) 03/08/2016 10:36 AM BIAS MACHINE OPERATOR Body Mass Index 28.54 03/08/2016 10:36 AM BIAS MACHINE OPERATOR documented in this encounter Medications at Time of Discharge Medication Sig Dispensed Refills Start Date End Date cetirizine (for_ZyrTEC) Take 10 mg by mouth 0 10 mg tablet daily as needed. rizatriptan (MAXALT) 10 Take 1 tablet by 0 201512/18/2017 mg tablet mouth See Admin Instructions. rizatriptan (MAXALT) 10 Take 10 mg by mouth. 0 09/01/2019 mg tablet documented as of this encounter Progress Notes Philippe Astudillo, TIM, C.N.P. - 03/08/2016 10:59 AM CST Clinic Full Note CHIEF COMPLAINT/REASON FOR VISIT Vaginal discharge and foul odor. Started 4-5 days ago. Thought at first it was yeast infection. HISTORY OF PRESENT ILLNESS Marlin states she has had vaginal irritation with discharge and odor for the past several days. Shethought it was yeast and tried a Diflucan. She continues to have symptoms. MEDICATIONS lamoTRIgine 100 mg oral tablet, 100 mg, 1 tab(s), PO, Daily, lamoTRIgine 150 mg oral tablet, 150 mg, 1 tab(s), PO, Bedtime, lorazepam, 1 mg, PO, q6hr, PRN Lyrica 150 mg oral capsule, 150 mg, 1 cap(s), PO, 2xDay Maxalt 10 mg oral tablet, 10 mg, 1 tab(s), Take 1 tablet at onset of headache. Repeat after two hours if needed., PO, As Directed, PRN melatonin 3 mg oral tablet, 9 mg, 3 tab(s), PO, Bedtime, PRN Misc Prescription, Tumeric OLANZapine 10 mg oral tablet, 10 mg, 1 tab(s), PO, Bedtime, Plaquenil Sulfate 200 mg oral tablet, 400 mg, 2 tab(s), PO, Daily, predniSONE 5 mg oral tablet, 5 mg, 1 tab(s), PO, Daily, ZyrTEC, 10 mg, PO, Daily, PRN ALLERGIES Feldene (Rash) Latex morphine (nausea, vomiting) Naproxen Sodium PAST MEDICAL HISTORY Chronic Abuse Tobacco Smoking NOS Allergy Seasonal Bipolar I Disorder NOS Depression with Anxiety* Esophageal reflux (GERD) Fibromyalgia Migraine Headache (SANCHEZ) NOS Posttraumatic Stress Disorder (PTSD) Prolonged Raynaud's phenomenon Historical No historical problems PROCEDURES/SURGICAL HISTORY Pap smear (08/15/2010), Ankle fusion (2000), Repair of umbilical hernia. SOCIAL HISTORY Date Time: 03/08/2016 10:36 Tobacco: Smoking Status: Current every day smoker Exposure: Patient smokes Alcohol: Use: No Results Found Recreational Drugs: Use: None Type: No Results Found FAMILY HISTORY Mother:Positive: [place] - Breast cancer Father:Positive: Thyroid cancer Sister:Positive: Fibromyalgia Grandmother (Paternal):Positive: Rheumatoid arthritis HEALTH MAINTENANCE Flu shot given today. SYSTEMS REVIEW Positive for that mentioned in the History of Present Illness and Past Medical History. All other systems were reviewed and were negative. VITAL SIGNS T: 37.1 ??C (Core) HR: 88 RR: 20 BP: 118 / 72 HT: 165 cm WT: 77.70 kg BMI: 28.54 PHYSICAL EXAMINATION GENERAL: Well-developed, well-nourished, in no acute distress. SKIN: Warm and dry. HEART: Regular rate and rhythm. S1, S2. No murmur. LUNGS: Clear to auscultation. No wheezes or rales. ABDOMEN: Soft, nontender. No hepatosplenomegaly. :Bartholin, urethra, Alcova's, vagina and cervix are without lesion. Bimanual exam reveals uterus is midline, mobile, nontender. No adnexal masses. Wet prep obtained. EXTREMITIES: Warm, dry. No peripheral edema. LAB RESULTS Vaginitis Panel: Trichomonas vaginalis DNA negative Gardnerella vaginalis DNA positive Isi species DNA negative. IMPRESSION/REPORT/PLAN Encounter for immunization Flu shot given. Vaginosis Bacterial Metronidazole 500 mg, one twice daily with food for 7 day. No alcohol while on this mediation. Orders: Consult to PEDIATRIC LICENSED PRACTICAL NURSE Electronically Signed By: PHILIPPE ASTUDILLO APRN, CNP On: 03/08/2016 11:57 AM Source: [facility] POWERCHART Document Id: [id number] MACHINE OPERATOR documented in this encounter Nursing Notes Philippe Astudillo APRN, C.NXimena. - 03/08/2016 11:04 AM CST Ambulatory Patient Education The following Patient Education Materials have been given to the patient: Patient Education Materials: Infectious Disease Getting a Flu Vaccination Infectious Disease Getting a Flu Vaccination The flu (influenza) is caused by a virus that is easily spread. And it can be more dangerous than you think. A flu vaccine is your best chance to avoid the flu. The vaccine is given in the form of a shot (injection) or a nasal spray. Its best to get vaccinated each fall, before flu season starts. Thiscan be done at your doctors office or a health clinic. Drugstores, senior centers, and workplaces often offer flu vaccinations, too. If you have questions about getting vaccinated, ask your health careprovider. Flu Facts The flu vaccine will not give you the flu. The flu is caused by a virus. It cant be treated with antibiotics. The flu can be life-threatening, especially for people in high-risk groups. Influenza is not the same as stomach flu, the 24-hour bug that causes vomiting and diarrhea. This is most likely due to a GI (gastrointestinal) infection-not the flu. Flu Symptoms Flu symptoms tend to come on quickly. Fever, headache, fatigue, cough, sore throat, runny nose, and muscle aches are symptoms of the flu. Children may have upset stomach or vomiting, but adults usuallydont. Some symptoms, such as fatigue and cough, can last a few weeks. How a Flu Vaccine Protects You There are many strains (types) of flu viruses. Medical experts predict which 3 strains are most likely to make people sick each year. Flu vaccines are made from these strains. With the shot, inactivated (killed) flu viruses are injected into your body. With the nasal spray, live and weakened viruses are sprayed into your nose. The viruses in both vaccines cannot make you sick. But they do prompt the body to make antibodies to fight these flu strains. If youre exposed to the same strains later in theflu season, the antibodies will fight off the virus. Your health care provider can tell you which type of flu vaccine is right for you. Who Should Get the Flu Vaccination? Almost anyone can (and should) get vaccinated, especially people in the following high-risk groups: ?? Persons 50 and older ?? Babies and children 6 months and older (ask your healthcare provider if your child should receivethe vaccine) ?? Children on long-term aspirin therapy ?? People with chronic health problems (such as diabetes, chronic lung disease, asthma, or heart failure) ?? People receiving certain medical treatments ?? People who live in nursing homes or other long-term care facilities ?? women ?? Caregivers and household contacts of babies younger than 6 months ?? Health care workers Who Cant Get a Flu Vaccination? ?? Babies younger than 6 months ?? People who have had bad reactions to flu vaccination (including Guillain- Martínez?? syndrome) ?? A person who has a high fever (the vaccine can be given after the fever goes away). Types of Flu Vaccines Two main types of flu vaccines are available, injection (shot) and nasal spray. Talk to your doctor about which type is right for you. ?? Injection (shot): ?? The regular flu shot is for persons 6 months and older. It is injected with a needle into the muscle of the upper arm. ?? The high dose shot is only for persons 65 years and older. It is also injected into the muscles of the upper arm. This vaccine has four times the amount of killed viruses than the regular flu shot. This helps the body produce more antibodies, which is important for older persons whose immune systems are weaker. ?? The intradermal shot is injected into the skin with a much smaller needle than for the regular flu shot. This vaccine has a much smaller amount of killed viruses than the regular flu shot. But this is just as effective as the regular flu shot in prompting the body to produce antibodies. ?? Two different influenza vaccines are now available for use in people with a severe egg allergy. Talk with your doctor about seeing an scrubber operator before getting the flu vaccine. ?? Nasal spray: This is a vaccine thats sprayed into the nose. It is available only for healthy persons ages 2 through 49. It should not be used for women. ?? 4189-1720 Sharita Simon, [address] [place] [address], [place] [address]. All rights reserved. This information is not intended as a substitute for professional medical care. Always follow your healthcare professional's instructions. This document has images extracted. Please consider using [employer] for all your patient education needs. Source: [facility] POWERCHART Document Id: [id number] MACHINE OPERATOR documented in this encounter Miscellaneous Notes Telephone Encounter - Conversion, Historical Provider Ser - 09/21/2016 12:15 PM CDT *Phone Message Document Contains Addenda Addendum by ОЛЬГА HAYES LPN on September 21, 2016 13:49:55 CDT Spoke with: ( _x) Patient ( _ ) Parent ( _ ) Spouse ( _ ) Child ( ) Other: _ Call back telephone number: [phone] Reason for Call: -Rx Chief Complaint: Notified prescription was sent to [facility] pharmacy. Patient/Caller response to Education/Information given: ( x ) Verbalizes understanding of instructions ( _ ) Provide intervention per provider instruction ( _ ) Reinforce information already given ( _ ) Reinforce Plan of Care ( _ ) Provide preprinted information by mail (if applicable) Source/Reference used (if applicable): Philippe Astudillo CNP OK to leave message on voice mail? N/A OK to send message via patient portal? N/A Patient told to expect return call: ( _ ) today ( _ ) tomorrow ( _ ) next work day Callers preferred language for Healthcare discussion: Finnish Was an certified court/medical interpreter used for this call? No Other ( --_ ) Addendum by PHILIPPE ASTUDILLO APRN, CNP on September 21, 2016 13:31:03 CDT From: PHILIPPE ASTUDILLO APRN, CNP To: NIYA Astudillo Nurse; Sent: 09/21/2016 13:31:03 CDT Subject: RE: *Phone Message done Addendum by ОЛЬГА HAYES LPN on September 21, 2016 12:55:23 CDT From: ОЛЬГА HAYES LPN ( [place] Nurse) To: PHILIPPE ASTUDILLO APRN, CNP; Sent: 09/21/2016 12:55:23 CDT Subject: FW: *Phone Message Addendum by ОЛЬГА HAYES LPN on September 21, 2016 12:55:17 CDT Spoke with: ( x Patient ( _ ) Parent ( _ ) Spouse ( _ ) Child ( ) Other: _ Call back telephone number: [phone] Reason for Call: -Bacterial infection Chief Complaint: Spoke with Marlin and she stated she gets these after she has sex with her if he does not use a condom. Started 3 days ago with foul smelling discharge and irritation. Stated you treated her with Metronidazole 500 mg twice daily for 7 days. This worked well for her. [facility]acy [facility] Patient/Caller response to Education/Information given: ( x ) Verbalizes understanding of instructions ( _ ) Provide intervention per provider instruction ( _ ) Reinforce information already given ( _ ) Reinforce Plan of Care ( _ ) Provide preprinted information by mail (if applicable) Source/Reference used (if applicable): _ OK to leave message on voice mail? Yes OK to send message via patient portal? N/A Patient told to expect return call: ( x ) today ( _ ) tomorrow ( _ ) next work day Callers preferred language for Healthcare discussion: Finnish Was an certified court/medical interpreter used for this call? No Other ( --_ ) From: KARINA BLUE ( Family Med 2W Nurse) To: NIYA Astudillo Nurse; Sent: 09/21/2016 12:15:34 CDT Subject: *Phone Message Caller is: ( x ) Patient ( ) Mother ( ) Father ( ) Spouse ( ) Daughter ( ) Son ( ) Pharmacy ( ) Other: Physician: Patient MRN #: Reason for Call: Message: Patient thinks she has a vaginal bactiral infection she has the excat same symptoms as before, but she does not have the money for co-pay to come in. Can a Rx be sent in? Patient can be reached at [phone] Advice/Action: Source used: ( ) Verbalizes understanding [...] back cell phone number ( ) Source: [facility] uberall Document Id: [id number] Miscellaneous - Wanda Purcell R.N. - 05/01/2016 2:51 PM CST lyrica Document Contains Addenda Addendum by MIRTHA OVIEDO LPN on May 05, 2016 15:34:46 BIAS MACHINE OPERATOR Spoke with: ( x ) Patient ( _ ) Parent ( _ ) Spouse ( _ ) Child ( ) Other: _ Call back telephone number: [phone] Reason for Call: -Lyrica Chief Complaint: Patient notified of Dr. Gaines's instructions. Prescriptions faxed to [facility]. _ Patient/Caller response to Education/Information given: ( x ) Verbalizes understanding of instructions ( _ ) Provide intervention per provider instruction ( _ ) Reinforce information already given ( _ ) Reinforce Plan of Care ( _ ) Provide preprinted information by mail (if applicable) Source/Reference used (if applicable): Eder OK to leave message on voice mail? _ OK to send message via patient portal? _ Patient told to expect return call: ( _ ) today ( _ ) tomorrow ( _ ) next work day Callers preferred language for Healthcare discussion: _ Was an certified court/medical interpreter used for this call? _ Other ( --x ) No further action needed. Addendum by MIRTHA OVIEDO LPN on May 04, 2016 15:56:13 BIAS MACHINE OPERATOR Left message for patient to return my call. Addendum by MARIANNE PHILIP on May 04, 2016 14:24:04 BIAS MACHINE OPERATOR Returning call to [place]- please call back after 3:30. Addendum by MIRTHA OVIEDO LPN on May 04, 2016 14:12:05 BIAS MACHINE OPERATOR Left message for patient to return my call. Addendum by HUY GAINES MD on May 04, 2016 13:21:49 BIAS MACHINE OPERATOR From: HUY GAINES MD To: NIYA Gaines Nurse; Sent: 05/04/2016 13:21:49 BIAS MACHINE OPERATOR ! Subject: RE: lyrica Actions: Notify patient- refer to General Message, Notify patient of Future Order Please call her to taper off Lyrica gradually as below. Once she done with current supply of Lyrica 150 mg, she starts 75 mg PO BID for 2 weeks, then 50 mg PO BID for 2 weeks, then 25 mg PO BID for 2 weeks then 25 mg PO daily for 1 week and STOP. See below for new Rx. Addendum by HUY GAINES MD on May 04, 2016 13:19:50 BIAS MACHINE OPERATOR Submitted: Order:pregabalin (pregabalin 25 mg oral capsule) See Instructions 1 cap(s) PO 2xDay for 2 weeks, then 1 cap PO Daily for 1 week and STOP Qty: 35 cap(s) Refills: 0 Substitutions Allowed Print - [id number] Signed by HUY GAINES MD Addendum by HUY GAINES MD on May 04, 2016 13:17:02 BIAS MACHINE OPERATOR Submitted: Order:pregabalin (pregabalin 50 mg oral capsule) 1 cap(s) PO 2xDay Then decrease to 25 mg PO BID Qty: 28 cap(s) Duration: 14 day(s) Refills: 3 Substitutions Allowed Print - [id number] Signed by HUY GAINES MD Addendum by HUY GAINES MD on May 04, 2016 13:15:35 BIAS MACHINE OPERATOR Submitted: Order:pregabalin (pregabalin 75 mg oral capsule) 1 cap(s) PO 2xDay Then decrease to 50 mg PO BID Qty: 28 cap(s) Duration: 14 day(s) Refills: 0 Substitutions Allowed Print - [id number] Signed by HUY GAINES MD Addendum by MIRTHA OVIEDO LPN on May 04, 2016 11:33:54 BIAS MACHINE OPERATOR From: MIRTHA OVIEDO LPN (NIYA Gaines Nurse) To: HUY GAINES MD; Sent: 05/04/2016 11:33:54 BIAS MACHINE OPERATOR ! Subject: FW: cielo Spoke with: ( x ) Patient ( _ ) Parent ( _ ) Spouse ( _ ) Child ( ) Other: _ Call back telephone number: [phone] Reason for Call: -Speciality appointments Chief Complaint: Patient states that she chose not to make those appointments at this time due to the cost. Patient states that she has started taking a Tumeric supplement which is helping a lot. Patient also would like to start weaning off her Lyrica. She would like to do so slowly however because last time time she went off she had a bipolar episode. She would like your recommendations. Please advise. _ Patient/Caller response to Education/Information given: ( _ ) Verbalizes understanding of instructions ( _ ) Provide intervention per provider instruction ( _ ) Reinforce information already given ( _ ) Reinforce Plan of Care ( _ ) Provide preprinted information by mail (if applicable) ( x ) awaiting provider recommendations Source/Reference used (if applicable): Patient OK to leave message on voice mail? _ OK to send message via patient portal? _ Patient told to expect return call: ( x ) today ( _ ) tomorrow ( _ ) next work day Callers preferred language for Healthcare discussion: _ Was an certified court/medical interpreter used for this call? _ Other ( -- ) Addendum by MIRTHA OVIEDO LPN on May 02, 2016 08:57:32 BIAS MACHINE OPERATOR Left message for patient to return my call. [facility] Addendum by HUY GAINES MD on May 01, 2016 17:15:05 BIAS MACHINE OPERATOR From: HUY GAINES MD To: NIYA Gaines Nurse; Cc: NIYA Page Medication Refill; Sent: 05/01/2016 17:15:05 BIAS MACHINE OPERATOR Subject: RE: cielo Actions: Notify patient- refer to General Message, Notify patient of Future Order Please see below for new Rx. Please call her. I referred her to see Rheumatology and Dr. Mccullough also referred her to [facility]. Did she get these appointments. Addendum by HUY GAINES MD on May 01, 2016 17:14:00 BIAS MACHINE OPERATOR Submitted: Order:pregabalin (Lyrica 150 mg oral capsule) 1 cap(s) PO 2xDay Qty: 200 cap(s) Refills: 0 Substitutions Allowed Print - [id number] Signed by HUY GAINES MD Documented Discontinue:pregabalin (Lyrica 150 mg oral capsule) Signed by HUY GAINES MD 05/01/2016 17:13:45 From: WANDA PURCELL RN ([facility] Medication Refill) To: HUY GAINES MD; Sent: 05/01/2016 14:51:48 BIAS MACHINE OPERATOR Subject: lyrica Caller is: ( ) Patient ( ) Mother ( ) Father ( ) Spouse ( ) Daughter ( ) Son ( asad/jenn ) Pharmacy( ) Other: Provider: [facility] Pharmacy: Name of Medications Needing Refill: Lyrica 150 mg Last Refill Date: 03/29/16 qty 60 Additional Information: Last refill by Liane Matrinez....1 cap po BID.... 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 - 03/08/2016 11:04 AM BIAS MACHINE OPERATOR Ambulatory Patient Summary [address] [id number] Visit Information Name: MARLIN PLUMMER [facility] Number: [id number] Current Date: 03/08/2016 11:04:30 Physicians Attending Provider: PHILIPPE ASTUDILLO APRN [facility] Primary Care Provider: HUY GAINES MD MARLIN PLUMMER has been given the [...] as needed for Allergy symptoms lamoTRIgine (lamoTRIgine 100 mg oral tablet) 1 Tablet(s), Oral, once a day lamoTRIgine (lamoTRIgine 150 mg oral tablet) 1 Tablet(s), Oral, once a day (at bedtime) lorazepam (lorazepam) 1 mg, Oral, every 6 hours as needed for Anxiety melatonin (melatonin 3 mg oral tablet) 3 Tablet(s), Oral, once a day (at bedtime) as needed for Sleep Misc Prescription (Misc Prescription) Tumeric OLANZapine (OLANZapine 10 mg oral tablet) 1 Tablet(s), Oral, once a day (at bedtime) pregabalin (Lyrica 150 mg oral capsule) 1 cap, Oral, two times a day rizatriptan (Maxalt 10 mg oral tablet) 1 Tablet(s), Oral, as directed as needed for Migraine headache Take 1 tablet at onset of headache. Repeat after two hours if needed. Stop Taking the Following Medications: fluconazole (fluconazole 150 mg oral tablet) hydroxychloroquine (Plaquenil Sulfate 200 mg oral tablet) predniSONE (predniSONE 5 mg oral tablet) Medication list as of 03-08-16 11:04 Attention: If you have any medications at home that are not on this list, DO NOT take them until youcontact your provider for clarification. Give a copy of your medication list to your primary care provider. Update your medication list any time medications or doses are changed and carry your medication list at all times in case of emergency. Electronically Signed By: PHILIPPE ASTUDILLO APRN, CNP Signed On:08-MAR-2016 11:03:53 Your Allergies & Intolerances Substance Reaction Symptoms [...] Your Upcoming Appointments Date Time Location Provider No Appointments found Attention: Contact your local Clinic if further appointment detail needed. Getting a Flu Vaccination The flu (influenza) is caused by a virus that is easily spread. And it can be more dangerous than you think. A flu vaccine is your best chance to avoid the flu. The vaccine is given in the form of a shot (injection) or a nasal spray. Its best to get vaccinated each fall, before flu season starts. Thiscan be done at your doctors office or a health clinic. Drugstores, senior centers, and workplaces often offer flu vaccinations, too. If you have questions about getting vaccinated, ask your health careprovider. Flu Facts The flu vaccine will not give you the flu. The flu is caused by a virus. It cant be treated with antibiotics. The flu can be life-threatening, especially for people in high-risk groups. Influenza is not the same as stomach flu, the 24-hour bug that causes vomiting and diarrhea. This is most likely due to a GI (gastrointestinal) infection--not the flu. Flu Symptoms Flu symptoms tend to come on quickly. Fever, headache, fatigue, cough, sore throat, runny nose, and muscle aches are symptoms of the flu. Children may have upset stomach or vomiting, but adults usuallydont. Some symptoms, such as fatigue and cough, can last a few weeks. How a Flu Vaccine Protects You There are many strains (types) of flu viruses. Medical experts predict which 3 strains are most likely to make people sick each year. Flu vaccines are made from these strains. With the shot, inactivated (killed) flu viruses are injected into your body. With the nasal spray, live and weakened viruses are sprayed into your nose. The viruses in both vaccines cannot make you sick. But they do prompt the body to make antibodies to fight these flu strains. If youre exposed to the same strains later in theflu season, the antibodies will fight off the virus. Your health care provider can tell you which type of flu vaccine is right for you. Who Should Get the Flu Vaccination? Almost anyone can (and should) get vaccinated, especially people in the following high-risk groups: ?? Persons 50 and older ?? Babies and children 6 months and older (ask your healthcare provider if your child should receivethe vaccine) ?? Children on long-term aspirin therapy ?? People with chronic health problems (such as diabetes, chronic lung disease, asthma, or heart failure) ?? People receiving certain medical treatments ?? People who live in nursing homes or other long-term care facilities ?? women ?? Caregivers and household contacts of babies younger than 6 months ?? Health care workers Who Cant Get a Flu Vaccination? ?? Babies younger than 6 months ?? People who have had bad reactions to flu vaccination (including Guillain- Martínez? syndrome) ?? A person who has a high fever (the vaccine can be given after the fever goes away). Types of Flu Vaccines Two main types of flu vaccines are available, injection (shot) and nasal spray. Talk to your doctor about which type is right for you. ?? Injection (shot): ?? The regular flu shot is for persons 6 months and older. It is injected with a needle into the muscle of the upper arm. ?? The high dose shot is only for persons 65 years and older. It is also injected into the muscles of the upper arm. This vaccine has four times the amount of killed viruses than the regular flu shot. This helps the body produce more antibodies, which is important for older persons whose immune systems are weaker. ?? The intradermal shot is injected into the skin with a much smaller needle than for the regular flu shot. This vaccine has a much smaller amount of killed viruses than the regular flu shot. But this is just as effective as the regular flu shot in prompting the body to produce antibodies. ?? Two different influenza vaccines are now available for use in people with a severe egg allergy. Talk with your doctor about seeing an scrubber operator before getting the flu vaccine. ?? Nasal spray: This is a vaccine thats sprayed into the nose. It is available only for healthy persons ages 2 through 49. It should not be used for women. ?? [id number] Sharita Simon, [address] [place] [address], [place] [address]. All rights reserved. This information is not intended as a substitute for professional medical care. Always follow your healthcare professional's instructions. Consider Using Patient Online Services Patient Online [...] if you dont have one. Go to [facility] behavioral health servicesGood World [email or web address] and click on Create Your Account. Then, follow the directions to complete the online form. Youll be asked for your [facility] number which you can find at the top of this document. Your Goals/Additional instructions: This document has images extracted. Please consider using [employer] for all your patient education needs. Source: [facility] POWERCHART Document Id: [id number] MACHINE OPERATOR Miscellaneous - Philippe Astudillo APRN, C.N.P. - 03/08/2016 11:04 AM BIAS MACHINE OPERATOR Ambulatory Discharge Medication List [address] [id number] Visit Information Name: MARLIN PLUMMER [facility] Number: [id number] Current Date: 03/08/2016 11:04:29 Attending Provider: PHILIPPE ASTUDILLO APRN [facility] Primary Care Provider: HUY GAINES MD MARLIN PLUMMER has been given the [...] as needed for Allergy symptoms lamoTRIgine (lamoTRIgine 100 mg oral tablet) 1 Tablet(s), Oral, once a day lamoTRIgine (lamoTRIgine 150 mg oral tablet) 1 Tablet(s), Oral, once a day (at bedtime) lorazepam (lorazepam) 1 mg, Oral, every 6 hours as needed for Anxiety melatonin (melatonin 3 mg oral tablet) 3 Tablet(s), Oral, once a day (at bedtime) as needed for Sleep Misc Prescription (Misc Prescription) Tumeric OLANZapine (OLANZapine 10 mg oral tablet) 1 Tablet(s), Oral, once a day (at bedtime) pregabalin (Lyrica 150 mg oral capsule) 1 cap, Oral, two times a day rizatriptan (Maxalt 10 mg oral tablet) 1 Tablet(s), Oral, as directed as needed for Migraine headache Take 1 tablet at onset of headache. Repeat after two hours if needed. Stop Taking the Following Medications: fluconazole (fluconazole 150 mg oral tablet) hydroxychloroquine (Plaquenil Sulfate 200 mg oral tablet) predniSONE (predniSONE 5 mg oral tablet) Medication list as of 03-08-16 11:04 Attention: If you have any medications at home that are not on this list, DO NOT take them until youcontact your provider for clarification. Give a copy of your medication list to your primary care provider. Update your medication list any time medications or doses are changed and carry your medication list at all times in case of emergency. Electronically Signed By: PHILIPPE ASTUDILLO APRN CURB SETTER Signed On:08-MAR-2016 11:03:53 Additional Information: Source: [facility] POWERCHART Document Id: [id number] MACHINE OPERATOR Miscellaneous - Ольга Hayes L.P.N. - 03/08/2016 10:36 AM CST Adult High Pressure Firer Intake/History Adult High Pressure Firer Intake/History Entered On: 03/08/2016 10:38 BIAS MACHINE OPERATOR Performed On: 03/08/2016 10:36 BIAS MACHINE OPERATOR by ОЛЬГА HAYES LPN Intake Chief Complaint : Vaginal discharge and foul odor. Started 4-5 days ago. Thought at first it was yeast infection. Temperature Core : 37.1 DegC(Converted to: 98.8 DegF) Peripheral Pulse Rate : 88 /min Respiratory Rate : 20 /min Heart Rhythm : Regular Systolic Blood Pressure : 118 mmHg Diastolic Blood Pressure : 72 mmHg NIBP Mean : 87 mmHg BP Location : Left upper extremity Blood Pressure Cuff Size : Regular Height : 165 cm(Converted to: 5 ft 5 inch(es), 65 inch(es)) Actual Weight : 77.70 kg(Converted to: 171 lb 5 oz) Weight Source : Standing scale Dosing Weight Clinic : 77.7 kg Clinic BSA : 1.89 Body Mass Index : 28.54 kg/m2 ОЛЬГА HAYES RONNIE - 03/08/2016 10:36 BIAS MACHINE OPERATOR General Info Information Given By : Patient Preferred Communication Mode : Verbal Languages : Finnish Is Patient Female and 13-50 no hysterectomy : Yes Status : Patient denies Are you ? : No ОЛЬГА HAYES RONNIE - 03/08/2016 10:36 BIAS MACHINE OPERATOR Subjective Pain Symptoms : No ОЛЬГА HAYES RONNIE - 03/08/2016 10:36 BIAS MACHINE OPERATOR Dependent Habits Exposure to Tobacco Smoke : Patient smokes Smoking Status : Current every day smoker Tobacco 2A : Yes Tobacco Use/Currently Using : Yes Tobacco Use/Last 30 Days : Yes Tobacco Use/Last 12 months : Yes Type : Cigarettes: Less than 20 per day Tobacco Use/Advised to Quit : Yes DANTEMAGALYОЛЬГА Montes RONNIE - 03/08/2016 10:36 BIAS MACHINE OPERATOR Caffeine Use Grid Caffeine Use : Current Type : Coffee, Soft drinks Frequency : Daily DANTEMAGALYОЛЬГА Montes RONNIE - 03/08/2016 10:36 BIAS MACHINE OPERATOR Recreational Drug Use Grid Drug Use : None DANTEMAGALYОЛЬГА Montes PRABHU RONNIE - 03/08/2016 10:36 BIAS MACHINE OPERATOR Source: [facility] uberall Document Id: [id number] BIAS MACHINE OPERATOR!44 MACHINE OPERATOR documented in this encounter Plan of Treatment Not on filedocumented as of this encounter Procedures Procedure Name Priority Date/Time Associated Diagnosis Comme nts VAGINITIS BATTERY, Routine 03/02/2016 11:48 AM Re sults for this DNA (GENITAL) BIAS MACHINE OPERATOR procedure are in the results section. documented in this encounter Results (ABNORMAL) VAGINITIS BATTERY, DNA (GENITAL) (03/02/2016 11:48 AM BIAS MACHINE OPERATOR) Component Value Ref Test Analysis Performed At [facility] Range Method Time Signature HXVaginitis (POSITIVE) POWERCHART Battery, DNA (Genital) HXFinal Trichomonas POWERCHART vaginalis DNA negative HXFinal Gardnerella POWERCHART vaginalis DNA positive HXFinal Isi species POWERCHART DNA negative HXFinal Reference: POWERCHART Negative Specimen (Source) Anatomical Collection Method Collection Time Re ceived Time Location / / Volume Laterality Vagina 03/02/2016 11:48 AM BIAS MACHINE OPERATOR Philippe Astudillo APRN C.N.P. LAB HISTORICAL ORDERS Performing Organization Address City/State/ZIP Code Phon e Number POWERCHART documented in this encounter Visit Diagnoses Not on filedocumented in this encounter Additional Health Concerns Assessment Noted Time PHQ-9 Depression Total Score: 8 09/20/2015 11:24 AM CD T documented as of this encounter
--- OUTSIDE RECORDS SUMMARY | 2022-02-02 11:04 | XMS_ITS | Encounter Summary ---
:1980 Author Organization [facility] Address [address] [place] [address] Care Team Providers Name Role Phone Vadim Gaines M.D. Primary Care Provider Encounter Details Date Type Department Care Team Description 03/05/2017 Orders Only Department of Family Zoë Nick, APR N, Medicine, [facility], C.N. P. in [facility] sweet potato disintegrator [address] [address] [place] [address] [phone] Social History Tobacco Use Types Packs/Day Years [...] or relatives? How often do you attend muslim or Never 2019 voodoo services? Do you belong to any clubs or No 01/29/2019 organizations such as muslim groups, unions, fraternal or athletic groups, or [...] documented as of this encounter Care Teams Surgical Garment Assembly Supervisor Relationship Specialty Start Date End Date Vadim Gaines M.D. PCP - General 09/14/16 11/18/17 documented as of this encounter
--- OUTSIDE RECORDS SUMMARY | 2022-02-02 11:04 | XMS_ITS | Encounter Summary ---
:1980 Author Organization [facility] Address [address] [place] [address] Care Team Providers Name Role Phone Unavailable Primary Care Provider Unavailable Encounter Details Date Type Department Care Team Description 01/12/2016 Hospital Encounter HX [facility]TR Robert Smith M.D. [address] [place] [address], [address] [place] [address] (Wo rk) Social History Tobacco Use Types [...] do you attend sabianist or Never 2019 yazidi services? Do you belong to any clubs [...] Sign Reading Time Taken Comments Blood Pressure 114/74 01/12/2016 1:31 PM CDT Pulse - - Temperature - - Respiratory Rate - - Oxygen Saturation - - Inhaled Oxygen Concentration - - Weight 79.8 kg (175 lb 13.1 oz) 01/12/2016 1:31 PM CDT Height 165 cm (5' 4.96) 01/12/2016 1:31 PM CDT Body Mass Index 29.29 01/12/2016 1:31 PM CDT documented in this encounter Medications at Time of Discharge Medication Sig Dispensed Refills Start Date End Date cetirizine (for_ZyrTEC) Take 10 mg by mouth 0 10 mg tablet daily as needed. rizatriptan (MAXALT) 10 Take 1 tablet by 0 201512/18/2017 mg tablet mouth See Admin Instructions. rizatriptan (MAXALT) 10 Take 10 mg by mouth. 0 09/01/2019 mg tablet documented as of this encounter Consult Notes Stacey Simth M.D. - 01/12/2016 1:19 PM CDT [id number] CHIEF COMPLAINT/REASON FOR VISIT Diffuse pain in the setting of fibromyalgia and juvenile rheumatoid arthritis. REFERRAL SOURCE Huy Gaines MD. HISTORY OF PRESENT ILLNESS Ms. Plummer is a very pleasant 35-year-old female who has a past medical history of juvenile rheumatoid arthritis. She had a left wrist exploratory surgery at the age of 5 as well as a left ankle fusion that was performed when she was a alisha in high school. She last saw Rheumatology in 2006. At thattime, it was felt that her rheumatoid arthritis was not active and that her symptoms were most consistent with fibromyalgia. She was also diagnosed with fibromyalgia at a Fibromyalgia Clinic in the [facility]. She has tried a variety of different treatments for her fibromyalgia including gabapentin and Lyrica which she is currently using 150 mg 2 times daily. Ms. Plummer describes pain that is located in multiple areas of her body. She describes pain as located in her bilateral lateral hips and her bilateral knees and her bilateral ankles and feet as well as her bilateral shoulders and her neck and low back. This pain tends to vary in intensity but at its worst is a 10 out of 10. Some days the lower extremities are worse than the upper extremities and some days the upper extremities are worse than the lower extremities. Position does not seem to make a difference as well as she has an equal amount of pain throughout the day no matter what she is doing. She denies any paresthesias or focal weakness in her upper or lower extremities. No change in her bowel or bladder habits, fevers or chills, or recent unintentional weight loss. She does have distant difficulty sleeping. She has tried heat and ice which were not overly helpful. She tried massage therapy but that tended to exacerbate her pain. She also worked with a chiropractor which was not overly helpful. She has tried acupuncture which she did think was helpful. She has been involved in several different types of physical therapy including an aquatic- based program. She does feel that the aquatic-based program was helpful for her but she has fallen away from that recently. MEDICATIONS Reviewed as per on the medication list tab in the EMR on 01/12/2016. ALLERGIES Feldene, latex, morphine, naproxen. PAST MEDICAL/SURGICAL HISTORY Reviewed as under the EMR under the diagnosis and problems tab on 01/12/2016. SOCIAL HISTORY Ms. Plummer lives in [place]. She has 4 children. She does not work outside the home. She takes care of her 4 children. FAMILY HISTORY Her paternal grandmother and great grandmother had rheumatoid arthritis. PHYSICAL EXAMINATION GENERAL: Pleasant 35-year-old female in no acute distress. NEUROLOGICAL: Oriented to person, place and time. Appropriate mood and affect. Normal ge and stride. Toe and heel walking are normal. All major muscle groups of the bilateral upper and lower extremities have normal and symmetric muscle strength, bulk and tone. Bilateral upper and lower extremity muscle stretch reflexes are physiologic and symmetric. Plantar responses downgoing bilaterally. Normal light touch sensation through upper and lower extremities. Straight leg raise is negative for radicular pain or paresthesias bilaterally. MUSCULOSKELETAL/SPINE: Preserved cervical and lumbar spine range of motion. PALPATION: There is diffuse tenderness to palpation over 18 tender points for fibromyalgia. Joint range of motion, there is no swelling, warmth or erythema in any joints of the upper lower extremities. IMPRESSION/REPORT/PLAN 1. Diffuse pain syndrome. 2. Fibromyalgia. 3. History of juvenile rheumatoid arthritis. 4. Bipolar disorder. 5. Borderline personality disorder. I had a long discussion today with Ms. Plummer. She has a normal neurologic examination. Her symptoms currently are most consistent with fibromyalgia. We spent several minutes today discussing the pathophysiology of fibromyalgia and potential management options for her. PLAN: 1. I am going to have Ms. Plummer return to her aquatic-based aerobic exercise program. I think thiscould be potentially very helpful for her. We discussed the rationale for this and Ms. Plummer will reinitiate that at this time. 2. I am going to refer her to the [facility] Clinic at [facility]. I feel she would benefit from being seen there. Ms. Plummer is also in agreement with this and I will make that referral for her. 3. Ms. Plummer will continue Lyrica 150 mg 2 times daily. 4. Ms. Plummer will be in contact with me if she notes any worsening or worrisome symptoms prior to her Fibromyalgia Clinic consultation. She voiced agreement and understanding with this plan. Stacey Smith M.D./magdalena cc: Huy Gaines M.D. [facility] [place] [address] Electronically Signed By: STACEY SMITH MD On: 01/18/2016 02:23 PM Modified by and Electronically Signed by: STACEY SMITH MD On: 01/18/2016 02:23 PM Source: [facility] MHSDOLBEYNONRADSYS Document Id: [id number] documented in this encounter Miscellaneous Notes Telephone Encounter - Conversion, Historical Provider Ser - 01/28/2016 12:30 PM CDT *Phone Message Document Contains Addenda Addendum by MATT HAYES LPN on February 01, 2016 09:13:53 CDT Spoke with Marlin and she stated that the symstoms are going away now. Stated if come back she willschedule appointment to be seen. Addendum by MATT HAYES LPN on January 31, 2016 09:12:27 CDT Attempted to contact patient. Message left to return my call. Addendum by HORACIO ESQUIVEL on January 28, 2016 16:42:51 CDT pt called, please call back Addendum by ROSY OGLESBY on January 28, 2016 14:52:35 CDT Pt checking in. Please call her at [phone] From: QUINTEN CUELLAR ( [address] Tax Compliance Manager) To: NIYA Nick Nurse; Sent: 01/28/2016 12:30:56 CDT Subject: *Phone Message Caller is: ( x ) Patient ( ) Mother ( ) Father ( ) Spouse ( ) Daughter ( ) Son ( ) Pharmacy ( ) Other: Physician: Patient MRN #: Reason for Call: Message: Patient called, she has the vaginal infection back with the same symptoms as last time. Could you refill her prescription for the same medication she had last time. Please call into [facility] for her. Please call her back at [phone] Advice/Action: Source used: ( ) Verbalizes understanding [...] back cell phone number ( ) Source: [facility] POWERCHART Document Id: [id number] Miscellaneous - Stacey Smith M.D. - 01/12/2016 2:17 PM CDT Ambulatory Patient Summary [address] [id number] Visit Information Name: MARLIN PLUMMER [facility] Number: [id number] Current Date: 01/12/2016 14:17:15 Physicians Attending Provider: STACEY SMITH MD Primary Care Provider: HUY GAINES MD MARLIN [...] (ZyrTEC) 10 mg, Oral, once a day hydroxychloroquine (Plaquenil Sulfate 200 mg oral tablet) 2 Tablet(s), Oral, once a day lamoTRIgine (lamoTRIgine 100 mg oral tablet) 1 Tablet(s), Oral, once a day lamoTRIgine (lamoTRIgine 150 mg oral tablet) 1 Tablet(s), Oral, once a day (at bedtime) lorazepam (lorazepam) 1 mg, Oral, every 6 hours as needed for Anxiety melatonin (melatonin 3 mg oral tablet) 3 Tablet(s), Oral, once a day (at bedtime) OLANZapine (OLANZapine 10 mg oral tablet) 1 Tablet(s), Oral, once a day (at bedtime) predniSONE (predniSONE 5 mg oral tablet) 1 Tablet(s), Oral, once a day pregabalin (Lyrica 150 mg oral capsule) 1 cap, Oral, two times a day rizatriptan (Maxalt 10 mg oral tablet) 1 Tablet(s), Oral, as directed as needed for Migraine headache Take 1 tablet at onset of headache. Repeat after two hours if needed. Stop Taking the Following Medications: Medication list as of 01-12-16 14:17 Attention: If you have any medications at home that are not on this list, DO NOT take them until youcontact your provider for clarification. Give a copy of your medication list to your primary care provider. Update your medication list any time medications or doses are changed and carry your medication list at all times in case of emergency. Electronically Signed By: STACEY SMITH MD Signed On:12-JAN-2016 14:16:43 Your Allergies & Intolerances Substance Reaction Symptoms [...] if you dont have one. Go to [email or web address] and click on Create Your Account. Then, follow the directions to complete the online form. Youll be asked for your [facility] number which you can find at the top of this document. Your Goals/Additional instructions: Source: [facility] POWERCHART Document Id: [id number] Miscellaneous - Stacey Smith M.D. - 01/12/2016 2:17 PM CDT Ambulatory Discharge Medication List [address] [id number] Visit Information Name: MARLIN PLUMMER [facility] Number: [id number] Current Date: 01/12/2016 14:17:14 Attending Provider: STACEY SMITH MD Primary Care Provider: HUY GAINES MD MARLIN [...] (ZyrTEC) 10 mg, Oral, once a day hydroxychloroquine (Plaquenil Sulfate 200 mg oral tablet) 2 Tablet(s), Oral, once a day lamoTRIgine (lamoTRIgine 100 mg oral tablet) 1 Tablet(s), Oral, once a day lamoTRIgine (lamoTRIgine 150 mg oral tablet) 1 Tablet(s), Oral, once a day (at bedtime) lorazepam (lorazepam) 1 mg, Oral, every 6 hours as needed for Anxiety melatonin (melatonin 3 mg oral tablet) 3 Tablet(s), Oral, once a day (at bedtime) OLANZapine (OLANZapine 10 mg oral tablet) 1 Tablet(s), Oral, once a day (at bedtime) predniSONE (predniSONE 5 mg oral tablet) 1 Tablet(s), Oral, once a day pregabalin (Lyrica 150 mg oral capsule) 1 cap, Oral, two times a day rizatriptan (Maxalt 10 mg oral tablet) 1 Tablet(s), Oral, as directed as needed for Migraine headache Take 1 tablet at onset of headache. Repeat after two hours if needed. Stop Taking the Following Medications: Medication list as of 01-12-16 14:17 Attention: If you have any medications at home that are not on this list, DO NOT take them until youcontact your provider for clarification. Give a copy of your medication list to your primary care provider. Update your medication list any time medications or doses are changed and carry your medication list at all times in case of emergency. Electronically Signed By: STACEY SMITH MD Signed On:12-JAN-2016 14:16:43 Additional Information: Source: [facility] POWERCHART Document Id: [id number] Miscellaneous - Nicki Ray L.PSarahN. - 01/12/2016 1:31 PM CDT Adult Yoga Instructor Intake/History Adult Yoga Instructor Intake/History Entered On: 01/12/2016 13:33 CDT Performed On: 01/12/2016 13:31 CDT by NICKI RAY LPN Intake Systolic Blood Pressure : 114 mmHg Diastolic Blood Pressure : 74 mmHg NIBP Mean : 87 mmHg BP Location : Right upper extremity Blood Pressure Cuff Size : Regular Height : 165 cm(Converted to: 5 ft 5 inch(es), 65 inch(es)) Actual Weight : 79.75 kg(Converted to: 175 lb 13 oz) Dosing Weight Clinic : 79.75 kg Clinic BSA : 1.91 Body Mass Index : 29.29 kg/m2 NICKI RAY LPN - 01/12/2016 13:31 CDT General Info Languages : Russian Is Patient Female and 13-50 no hysterectomy : Yes Status : Patient denies Are you ? : No NICKI RAYTereza TRUJILLO - 01/12/2016 13:31 CDT Subjective Pain Symptoms : No NICKI RAYTereza TRUJILLO - 01/12/2016 13:31 CDT Dependent Habits Exposure to Tobacco Smoke : Patient smokes Smoking Status : Current every day smoker Tobacco 2A : Yes Tobacco Use/Currently Using : Yes Tobacco Use/Last 30 Days : Yes Tobacco Use/Last 12 months : Yes Type : Cigarettes: Less than 20 per day Tobacco Use/Advised to Quit : Yes RAYNICKI SARGENT EAN TRUJILLO - 01/12/2016 13:31 CDT Caffeine Use Grid Caffeine Use : Current Type : Coffee, Soft drinks Frequency : Daily NICKI RAY EAN TRUJILLO - 01/12/2016 13:31 CDT Recreational Drug Use Grid Drug Use : None CAROLSANDOVALDivina MCKOY LPN - 01/12/2016 13:31 CDT Source: [facility] Leaderz Document Id: [id number] CDT!36 Telephone Encounter - Conversion, Historical Provider Ser - 11/09/2015 9:50 AM CDT *Phone Message/Jamel Document Contains Addenda Addendum by MAXX MAHER LPN on November 09, 2015 10:21:58 CDT Notified patient she will be added to the wait list. From: CORI FERRELL To: [facility]; Sent: 11/09/2015 09:50:01 CDT Subject: *Phone Message/Jamel Caller is: ( x ) Patient ( ) Mother ( ) Father ( ) Spouse ( ) Daughter ( ) Son ( ) Pharmacy ( ) Other: Physician: Jamel Patient MRN #: Reason for Call: Message: Marlin has an appointment with Dr Smith on 01/04/16, per Dr Gaines referral, and would like to be put on the waitlist. She can be reached at Advice/Action: Source used: ( ) Verbalizes understanding [...] back cell phone number ( ) Source: [facility] [employer] Document Id: [id number] documented in this encounter Plan of Treatment Not on filedocumented as of this encounter Visit Diagnoses Not on filedocumented in this encounter Additional Health Concerns Assessment Noted Time PHQ-9 Depression Total Score: 8 09/20/2015 11:24 AM CD T documented as of this encounter
--- OUTSIDE RECORDS SUMMARY | 2022-02-02 11:04 | XMS_ITS | Encounter Summary ---
:1980 Author Organization [facility] Address [address] [place] [address] Care Team Providers Name Role Phone Vadim Gaines M.D. Primary Care Provider Encounter Details Date Type Department Care Team Description 10/02/2016 Hospital Encounter HX NO MAPPING Nessa Horton i, [facility] [address] [place] [address] Gabbie Espinal M.D. [address] [place] [address] Social History Tobacco Use Types Packs/Day Years [...] do you attend synagogue or Never 2019 orthodoxy services? Do you belong to any clubs [...] PM CDT Coding Summary-Paper Based CODING DATE: 10/11/2016 FINAL [facility] STATUS: * Discharged to Home or Self Care PAYOR: [employer] ADMIT DX: REASON FOR VISIT DX: FINAL DX: PRINCIPAL: F31.0 Bipolar disorder, current episode hypomanic SECONDARY: F32.0 Major depressive disorder, single episode, mild Z79.899 Other nursing home (current) drug therapy PROCEDURES DOCTOR NAME DATE NOTE: The code number assigned matches the documented diagnosis and / or procedure in the patient's chart. However, the narrative phrase printed from the coding software may appear abbreviated, or result in slightly different terminology. Coded By: SANDY CONNELL Date Saved: 10/11/2016 03:30 pm Source: [facility] POWERPasspack Document Id: [id number] documented in this encounter Plan of Treatment Not on filedocumented as of this encounter Visit Diagnoses Not on filedocumented in this encounter Additional Health Concerns Assessment Noted Time PHQ-9 Depression Total Score: 8 09/20/2015 11:24 AM CD T documented as of this encounter Care Teams Spouter Relationship Specialty Start Date End Date Vadim Gaines M.D. PCP - General 09/14/16 11/18/17 documented as of this encounter
--- OUTSIDE RECORDS SUMMARY | 2022-02-02 11:04 | XMS_ITS | Encounter Summary ---
:1980 Author Organization [facility] Address [address] [place] [address] Care Team Providers Name Role Phone Unavailable Primary Care Provider Unavailable Encounter Details Date Type Department Care Team Description 03/30/2016 Hospital Encounter HX NO MAPPING Yi Kaye A PRN, C.N.P. [address] [place], [place] [phone] (Wo rk) Social History [...] do you attend orthodox or Never 2019 caodaism services? 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 However, the narrative phrase printed from the coding software may appear abbreviated, or result in slightly different terminology. Coded By: SANDY CONNELL Date Saved: 04/11/2016 09:27 am Source: [facility]ENTERLibrel[facility] Implementos Rodovi[facility]rios Document Id: [id number] documented in this encounter Plan of Treatment Not on filedocumented as of this encounter Visit Diagnoses Not on filedocumented in this encounter Additional Health Concerns Assessment Noted Time PHQ-9 Depression Total Score: 8 09/20/2015 11:24 AM CD T documented as of this encounter
--- OUTSIDE RECORDS SUMMARY | 2022-02-02 11:04 | XMS_ITS | Encounter Summary ---
:1980 Author Organization [facility] Address [address] [place] [address] Care Team Providers Name Role Phone Vadim Gaines M.D. Primary Care Provider Reason for Visit Reason Comments Communication Encounter Details Date Type Department Care Team Description 03/05/2017 Clinical Communication Department of [facility] Vadim Gaines M.D. Communication Medicine, [address] [place], [place] [address] [address] [place], [place] [phone] (Fax) [phone] Social History Tobacco Use Types Packs/Day Years [...] or relatives? How often do you attend sikhism or Never 2019 confucianist services? Do you belong to any clubs or No 01/29/2019 organizations such as sikhism groups, unions, fraternal or athletic groups, or [...] this encounter Miscellaneous Notes Telephone Encounter - Beucler, Ольга M, L.P.N. - 03/05/2017 4:45 PM COOPERAGE SHOP SUPERVISOR Notified Marlin that Rx was sent to [facility]. If no improvement after using to schedule appointment lizbeth seen. ERAGE SHOP SUPERVISOR Addendum Note - Philippe Astudillo APRN, C.N.P. - 03/05/2017 4:41 PM [employer]OPERAGE SHOP SUPERVISOR Addended by: PHILIPPE ASTUDILLO on: 03/05/2017 04:41 PM Modules accepted: Orders [employer]AGE SHOP SUPERVISOR Telephone Encounter - Ольга العلي L.P.N. - 03/05/2017 4:38 PM COOPERAGE SHOP SUPERVISOR [facility] ERAGE SHOP SUPERVISOR Telephone Encounter - Philippe Astudillo APRN, C.N.P. - 03/05/2017 4:31 PM COOPERAGE SHOP SUPERVISOR I need her preferred pharmacy. ERAGE SHOP SUPERVISOR Telephone Encounter - Marisol Max L.P.N. - 03/05/2017 3:30 PM COOPERAGE SHOP SUPERVISOR Philippe, This message went to Dr. Gaines, as he is listed as her provider. When calling patient to inform her that she would need to go to urgent care or same day clinic she states this message should go to you. Are you able to please advise? Thank you. ERAGE SHOP SUPERVISOR Telephone Encounter - Vadim Gaines M.D. - 03/05/2017 3:25 PM CST She needs to be seen. She can go to urgent care or same-day Clinic. ERAGE SHOP SUPERVISOR Telephone Encounter - Marisol Max L.P.N. - 03/05/2017 2:22 PM CO[address]OP SUPER[address] Dr. Gaines, Please advise, thank you ERAGE SHOP SUPERVISOR Telephone Encounter - Johanna Villavicencio - 03/05/2017 1:43 PM CST She knows she has a bacterial infection and has the same symptoms as the time before. Can she call something in for her? She was told she can not come in because of her account standings with the clinic. ERAGE SHOP SUPERVISOR documented in this encounter Plan of Treatment Not on filedocumented as of this encounter Visit Diagnoses Not on filedocumented in this encounter Additional Health Concerns Assessment Noted Time PHQ-9 Depression Total Score: 8 09/20/2015 11:24 AM CD T documented as of this encounter Care Teams Gum Mixer Relationship Specialty Start Date End Date Vadim Gaines M.D. PCP - General 09/14/16 11/18/17 documented as of this encounter
--- OUTSIDE RECORDS SUMMARY | 2022-02-02 11:04 | XMS_ITS | Encounter Summary ---
:1980 Author Organization [facility] Address [address] [place] [address] Care Team Providers Name Role Phone Unavailable Primary Care Provider Unavailable Encounter Details Date Type Department Care Team Description 04/25/2016 Hospital Encounter HX [facility] Vadim Gaines M.D. [address] [facility], [facility] [address] [place] [phone] Social History Tobacco Use Types Packs/Day Years [...] or relatives? How often do you attend gnosticist or Never 2019 scientology services? Do you belong to any clubs or No 01/29/2019 organizations such as gnosticist groups, unions, fraternal or athletic groups, or [...] - - Height 165 cm (5' 4.96) 04/25/2016 9:52 AM CLAIM PROFESSIONAL Body Mass Index - - documented in [...] Encounter - Conversion, Historical Provider Ser - 05/05/2016 3:52 PM CST *Phone Message Document Contains Addenda Addendum by MIRTHA OVIEDO LPN on May 05, 2016 16:07:59 CLAIM PROFESSIONAL Spoke with: ( _ ) Patient ( _ ) Parent ( _ ) Spouse ( _ ) Child ( x ) Other: [facility] Call back telephone number: [phone] Reason for Call: -Lyrica Chief Complaint: Pharmacist calling to see if she should discontinue the prescription for Lyrica 150mg. Advised pharmacist that she could as patient will begin tapering dose. _ Patient/Caller response to Education/Information given: ( x ) Verbalizes understanding of instructions ( _ ) Provide intervention per provider instruction ( _ ) Reinforce information already given ( _ ) Reinforce Plan of Care ( _ ) Provide preprinted information by mail (if applicable) Source/Reference used (if applicable): phyo OK to leave message on voice mail? _ OK to send message via patient portal? _ Patient told to expect return call: ( _ ) today ( _ ) tomorrow ( _ ) next work day Callers preferred language for Healthcare discussion: _ Was an ferryboat helper used for this call? _ Other ( --x ) no further action needed From: CIPRIANO GUTIÉRREZ ([facility] Nurse) To: [facility] Nurse; Sent: 05/05/2016 15:52:04 CLAIM PROFESSIONAL Subject: *Phone Message Caller is: ( ) Patient ( ) Mother ( ) Father ( ) Spouse ( ) Daughter ( ) Son ( ) Pharmacy ( ) Other: Physician: Patient MRN #: Reason for Call: Message: needs to clarify lyrica rx larry kamara [phone] Advice/Action: Source used: ( ) Verbalizes understanding [...] back cell phone number ( ) Source: [facility] POWERCHART Document Id: [id number] documented in this encounter Plan of Treatment Not on filedocumented as of this encounter Procedures Procedure Name Priority Date/Time Associated Comments Diagnosis BUN (BLOOD UREA Routine 04/25/2016 10:08 AM Resul ts for this NITROGEN), S/P CLAIM PROFESSIONAL procedure are in the results section. THYROID-STIMULATING Routine 04/25/2016 10:08 AM R esults for this HORMONE-SENSITIVE CLAIM PROFESSIONAL procedure are in (S-TSH) the results section. CREATININE WITH Routine 04/25/2016 10:08 AM Resul ts for this EGFR, S/P CLAIM PROFESSIONAL procedure are i n the results section. LITHIUM LEVEL, S Routine 04/25/2016 10:08 AM Resu lts for this CLAIM PROFESSIONAL procedure are i n the results section. documented in this encounter Results Creatinine with eGFR (04/25/2016 10:08 AM CLAIM PROFESSIONAL) P athologist Signature Creatinine 0.67 0.60 - POWERCHART 1.10 MGDL HXeGFR (MDRD) >60 >=60 POWERCHART [id number] eGFR >60 >=60 POWERCHART Black/ [id number] Dominican Specimen (Source) Anatomical Collection Method Collection Time Re ceived Time Location / / Volume Laterality Blood 04/25/2016 10:08 AM CLAIM PROFESSIONAL [facility]oda [facility] PRINTING MECHANIST LAB BLOOD ADD-ON Performing Organization Address City/State/ZIP Code Phon e Number POWERCHART (ABNORMAL) [place] Level (04/25/2016 10:08 AM CLAIM PROFESSIONAL) P athologist Signature [place], S 0.3 (L) 0.6 - 1.2 POWERCHART MMOLL Comment: Therapeutic Concentration: 0.6-1.2 mmol/ L (0.42-0.83 mg/dL) Toxic Range: >2.0 mmol/L (>1.39 mg/dL) Specimen (Source) Anatomical Collection Method Collection Time Re ceived Time Location / / Volume Laterality Blood 04/25/2016 10:08 AM CLAIM PROFESSIONAL Hoda Horton PRINTING MECHANIST LAB BLOOD ADD-ON Performing Organization Address City/[facility]/ZIP Code Phon e Number POWERCHART BUN (Blood Urea Nitrogen) (04/25/2016 10:08 AM CLAIM PROFESSIONAL) P athologist Signature BUN (Blood Urea 9 6 - 21 MGDL POWERCHART Nitrogen), S Specimen (Source) Anatomical Collection Method Collection Time Re ceived Time Location / / Volume Laterality Blood 04/25/2016 10:08 AM CLAIM PROFESSIONAL Hoda Horton PRINTING MECHANIST LAB BLOOD ADD-ON Performing Organization Address City/[facility]/ZIP Code Phon e Number POWERCHART Thyroid-Stimulating Hormone-Sensitive (s-TSH) (04/25/2016 10:08 AM CLAIM PROFESSIONAL) P athologist Signature TSH 1.28 0.27 - 4.20 POWERCHART (Thyrotropin) MIUL Comment: Biotin has been identified by the [facility] cturer as a potential interfering substance. Higher concentrations of biotin may be found in multivitamins, hair/nail supplements, and workout supplements. If the result does not match clinical observat ions, repeat testing after patient refrains from the use of supplements for at least 12 hours. Specimen (Source) Anatomical Collection Method Collection Time Re ceived Time Location / / Volume Laterality Blood 04/25/2016 10:08 AM CLAIM PROFESSIONAL Hoda Horton PRINTING MECHANIST LAB BLOOD ADD-ON Performing Organization Address City/State/ZIP Code Phon e Number POWERCHART documented in this encounter Visit Diagnoses Not on filedocumented in this encounter Additional Health Concerns Assessment Noted Time PHQ-9 Depression Total Score: 8 09/20/2015 11:24 AM CD T documented as of this encounter
--- OUTSIDE RECORDS SUMMARY | 2022-02-02 11:04 | XMS_ITS | Encounter Summary ---
:1980 Author Organization [facility] Address [address] [place] [address] Care Team Providers Name Role Phone Huy Gaines M.D. Primary Care Provider Encounter Details Date Type Department Care Team Description 12/18/2016 Hospital Encounter HX [facility] FAMILYPRA Philippe Astudillo, SOFTWARE SUPPORT REPRESENTATIVE, C.N.P. [address] [place], [place] [phone] (Wo rk) Social History [...] do you attend methodist or Never 2019 protestant services? Do you [...] Sign Reading Time Taken Comments Blood Pressure 116/72 12/18/2016 11:18 AM CDT Pulse 88 12/18/2016 11:18 AM CDT Temperature - - Respiratory Rate 20 12/18/2016 11:18 AM CDT Oxygen Saturation - - Inhaled Oxygen Concentration - - Weight 79 kg (174 lb 2.6 oz) 12/18/2016 11:18 AM CDT Height 165 cm (5' 4.96) 12/18/2016 11:18 AM CDT Body Mass Index 29.02 12/18/2016 11:18 AM CDT documented in this encounter Medications at Time of Discharge Medication Sig Dispensed Refills Start Date End Date cetirizine Take 10 mg by mouth 0 09/20/2015 (for_ZyrTEC) 10 mg daily as needed. tablet clindamycin Apply 1 application 0 12/18/2016 (for_CLEOCIN T) 1 % topically 2 (two) times lotion a day as needed. For hidradenitis suppurativa doxycycline Take 1 tablet by mouth 0 12/18/2016 1 04/15/2017 (for_ADOXA) 100 mg 2 (two) times a day as tablet needed. lamoTRIgine 300 mg Take 1 tablet by mouth 0 03/3004/03/2017 tablet extended daily. release 24hr lithium carbonate 300 Take 900 mg by mouth at 0 0 12/18/2016 02/13/2018 mg tablet bedtime. melatonin 3 mg tablet Take 1 tablet by mouth 0 12/18/2017 at bedtime as needed. OLANZapine Take 1 tablet by mouth 0 03/30/2016 (for_ZyPREXA) 7.5 mg daily. tablet propranolol Take 1 tablet by mouth 0 12/18/2016 0 12/18/2017 (for_INDERAL) 10 mg as needed. tablet rizatriptan (MAXALT) Take 1 tablet by mouth 0 12/18/2017 10 mg tablet See Admin Instructions. rizatriptan (MAXALT) Take 10 mg by mouth. 0 08/0409/01/2019 10 mg tablet documented as of this encounter Progress Notes Philippe Astudillo, TIM, C.N.P. - 12/18/2016 12:03 PM CDT Clinic Full Note CHIEF COMPLAINT/REASON FOR VISIT Weaned off of lyrica last winter because of insurance. Has not had anything for her artritis. Body is aching very bad. Has skin issures. Gets red raised and scaly. They peel and leave scars. Has a hard pea size ball on right side of labis. Weight gain. HISTORY OF PRESENT ILLNESS Marlin states she has rheumatoid arthritis and fibromyalgia. She was on Lyrica but it became too expensive and she was weaned off of it . She has not seen a dry starch supervisor in a few years. She is having increased symptoms of joint pain. She would like referral to Rheumatology at [facility] in [place]. She has folliculitis in the groin area and uses doxycycline and clindamycin topical lotion as needed. She needs refills on both. She states she also gets scaly rashes on her extremities. She does not have any right now. She has not tried cortisone cream on a rash. She states she bruises easily. MEDICATIONS clindamycin 1% topical lotion, 1 barbara, apply a thin filmapply a thin film to affected area after washing, Topical, 2xDay, 1 refills, doxycycline monohydrate 100 mg oral tablet, 100 mg, 1 tab(s), may take with food to minimize abdominal discomfortwith fluids, PO, 2xDay, PRN, 3 refills, lamoTRIgine 300 mg oral tablet, extended release, 300 mg, 1 tab(s), Takes 2 tabs at night, PO, Daily lithium carbonate, 300 mg, PO, Bedtime Maxalt 10 mg oral tablet, 10 mg, 1 tab(s), Take 1 tablet at onset of headache. Repeat after two hours if needed., PO, As Directed, PRN melatonin 3 mg oral tablet, 3 mg, 1 tab(s), PO OLANZapine 7.5 mg oral tablet, 7.5 mg, 1 tab(s), PO, Daily propranolol 10 mg oral tablet, See Instructions, 1 tab(s) PO Daily, PRN ZyrTEC, 10 mg, PO, Daily, PRN ALLERGIES Feldene (Rash) Latex morphine (nausea, vomiting) Naproxen Sodium PAST MEDICAL HISTORY Chronic Abuse Tobacco Smoking NOS Allergy Seasonal Arthritis Rheumatoid (RA) Bipolar I Disorder NOS Depression with Anxiety* Esophageal reflux (GERD) Fibromyalgia Migraine Headache (SANCHEZ) NOS Posttraumatic Stress Disorder (PTSD) Prolonged Raynaud's phenomenon Historical No historical problems PROCEDURES/SURGICAL HISTORY Pap smear (08/15/2010), Ankle fusion (2000), Repair of umbilical hernia. SOCIAL HISTORY Date Time: 12/18/2016 11:18 Tobacco: Smoking Status: Current every day smoker Exposure: Patient smokes Alcohol: Use: Yes Recreational Drugs: Use: None Type: No Results Found FAMILY HISTORY Mother:Positive: CA - Breast cancer Father:Positive: Thyroid cancer Sister:Positive: Fibromyalgia Grandmother (Paternal):Positive: Rheumatoid arthritis HEALTH MAINTENANCE Flu shot given today. SYSTEMS REVIEW GENERAL: No weight gain, no weight loss, [...] no difficulty moving arms and legs GI: No heartburn, no nausea, no vomiting, no stomach trouble, no constipation, no diarrhea, no blood in BM, no change in BM BREAST: No lumps of breast, no nipple discharge, no pain in breast : No vaginal discharge, no burning/pain with urination, no difficulty starting stream, no difficulty emptying bladder, no excessive urination, cyst right labia MUSCULOSKELETAL: Rheumatoid arthritis, no joint swelling, joint stiffness, no muscle pain, no muscle stiffness, no back pain, no back stiffness SKIN: Eczematous skin rashes, folliculitis groin, no change in moles NEURO: No significant headaches, no slurred speech, no seizures, no dizziness, no loss of consciousness, no memory loss ENDOCRINE: No excessive thirst, no excessive bruising VITAL SIGNS T: 36.6 ??C (Core) HR: 88 RR: 20 BP: 116 / 72 HT: 165 cm WT: 79.00 kg BMI: 29.02 PHYSICAL EXAMINATION GENERAL: In general, the patient is a pleasant female who appears her stated age. SKIN: Without lesion. EYES: PERRLA. EOMI intact. Fundi sharp discs. Conjunctiva and lids normal. ENT: Tympanic membranes clear bilaterally. Nasal mucosa without erythema or congestion. Mouth without erythema or exudate. LYMPH NODES: Neck: Supple without adenopathy, no thyromegaly. Carotid pulses are equal bilaterally. BREASTS: No skin or nipple retraction. No palpable mass. No axillary adenopathy. No nipple discharge. PERIPHERAL VESSELS: Femoral, dorsal, pedal and posterior tibial pulses are equal. HEART: Regular rate and rhythm without murmur. LUNGS: Clear to auscultation, good inspiratory effort. ABDOMEN: Soft, nontender, no palpable mass, no hepatosplenomegaly. GENITALIA: 8 mm, right Bartholin cyst, urethra, vagina without lesion. Bimanual examination revealsno masses or tenderness in the uterine or adnexal areas. Folliculitis groin. SPINE: Normal range of motion. No CVA tenderness. JOINTS: Normal range of motion. Polyarthralgia. EXTREMITIES: Warm, dry, no cyanosis or peripheral edema. MENTAL: Alert and oriented times three. NEUROLOGIC: Deep tendon reflexes are +2 and symmetrical. LAB RESULTS CBC is pending. IMPRESSION/REPORT/PLAN Arthritis Rheumatoid (RA) Worsening, polyarthralgia without current medical treatment. Referral to Rheumatology at [facility] in [place]. Ordered: OV Est Pt Level 4 - 21031 - 25 min Cyst Labia Stable, small : Cyst without evidence of infection. We discussed worsening symptoms and need for gynecologic evaluation at that point. Ordered: OV Est Pt Level 4 - 39465 - 25 min Dermatitis Eczematoid Stable, she gets dry scaly rash. Recommend Aquaphor ointment. If symptoms worsen can use 1% hydrocortisone cream. She was provided with phone number for [facility] dermatology if she desires consult. Ordered: OV Est Pt Level 4 - 95383 - 25 min Ecchymosis Worsening, checking CBC, I will contact her with results. Ordered: CBC (includes Auto Differential) OV Est Pt Level 4 - 52370 - 25 min Fibromyalgia Worsening, recommend healthy lifestyle with regular exercise, 8-10 hours of sleep at night and healthy diet, also scheduling consult with Rheumatology at [facility] in [place]. Ordered: OV Est Pt Level 4 - 67163 - 25 min Folliculitis Worsening, doxycycline and clindamycin lotion refills provided. Ordered: OV Est Pt Level 4 - 48585 - 25 min Need Vaccine (IN) NOS Flu shot given. Orders: clindamycin topical, 1 barbara, Topical, 2xDay, PRN Rash, apply a thin film apply a thin film to affected area after washing, # 60 mL, 1 Refill(s), Maintenance, Pharmacy: [facility], [place] doxycycline, 100 mg = 1 tab(s), PO, 2xDay, PRN Rash, may take with food to minimize abdominal discomfort with fluids, # 14 tab(s), 3 Refill(s), Maintenance, Pharmacy: [facility], [place] Electronically Signed By: PHILIPPE ASTUDILLO APRN, CNP On: 12/18/2016 12:12 PM Source: [facility] [employer] Document Id: [id number] documented in this encounter Nursing Notes Ольга Hayes L.P.N. - 12/18/2016 11:59 AM CDT [place] [facility] referral [place] [facility] Referral completed for Rheumatology. Electronically Signed By: ОЛЬГА HAYES LPN On: 12/18/2016 12:01 PM Source: [employer] Document Id: [id number] Philippe Astudillo APRN C.N.P. - 12/18/2016 11:47 AM CDT Ambulatory Patient Education The following Patient Education Materials have been given to the patient: Patient Education Materials: Ambulatory FOLLICULITIS Ambulatory Folliculitis Folliculitis is an inflammation of the hair follicles (where the hair comes out of the skin). It is most often caused by infection with bacteria such as staph. Folliculitis usually looks like small white pimples in hairy areas of the skin. Severe cases may cause permanent hair loss and scarring. The condition is most often triggered by friction against the skin due to tight- fitting clothing. Ingrown hairs on the face of men are another cause. One type of folliculitis occurs after soaking in a hot tub when the water is contaminated with bacteria. Simple folliculitis usually clears by itself in a few days. Folliculitis that does not go away or comes back may need medical treatment. Oral and topical antibiotics may be used. Home care The following will help you care for folliculitis at home: ?? Wash the area with soap and water when you bathe, as usual. ?? Unless another medicine was prescribed, you can apply a topical antibiotic cream twice a day. Follow-up care Follow up with your doctor as advised by our staff. When to seek medical care Get prompt medical attention if any of the following occur: ?? Rash lasts longer than three days ?? Rash changes appearance or spreads ?? Abscess (boil) forms with local swelling, tenderness, or fluid drainage ?? Fever of 100.4??F (38??C) or higher, or as directed by your health care provider ?? [phone] [place] [address]. All rights reserved. This information is not intended as a substitute for professional medical care. Always follow your healthcare professional's instructions. Source: [facility] POWERCHART Document Id: [id number] documented in this encounter Miscellaneous Notes Miscellaneous - Philippe Astudillo APRN, C.N.P. - 12/18/2016 1:09 PM CDT Normal Results Letter December 18, 2016 MARLIN PLUMMER [address] [facility] [id number] Dear MARLIN PLUMMER, I am pleased to report that your results from the following diagnostic test(s) are normal. Please follow up with us as we discussed during your visit or sooner if you have any concerns. If you have questions or concerns, please do not hesitate to call our office. Would you like to see your lab results quickly? If you have an e-mail account, join the other [phone],[id number] [facility] patients who use the Patient Online Services to conveniently access their lab results by calling [phone] to sign up for an account. It just takes a few minutes! Result Name Current Result Normal Range Hgb (g/dL) 14.1 12/18/2016 12.0 - 15.5 Hct (%) 42.2 12/18/2016 34.9 - 44.5 WBC (x10(9)/L) 7.3 12/18/2016 3.4 - 10.5 RBC (x10(12)/L) 4.14 12/18/2016 3.90 - 5.03 MCV (fL) (H) 101.9 12/18/2016 82.0 - 98.0 RDW (%) 12.3 12/18/2016 11.9 - 15.5 Platelet (x10(9)/L) 290 12/18/2016 150 - 450 Neutro Absolute (10(9)/L) 5.16 12/18/2016 1.70 - 7.00 Lymph Absolute (x10(9)/L) 1.25 12/18/2016 0.90 - 2.90 [place] Absolute (x10(9)/L) 0.67 12/18/2016 0.30 - 0.90 Eos Absolute (x10(9)/L) 0.16 12/18/2016 0.05 - 0.50 Baso Absolute (x10(9)/L) 0.03 12/18/2016 0.00 - 0.30 Sincerely, PHILIPPE ASTUDILLO [address] [place] [id number] Electronic Signature Electronically Signed By: PHILIPPE ASTUDILLO APRN EMBRYOLOGY TEACHER On: December 18, 2016 This document has images extracted. Source: [facility] POWERCHART Document Id: [id number] Miscellaneous - Philippe Astudillo APRN, C.N.P. - 12/18/2016 11:47 AM CDT Ambulatory Discharge Medication List [facility] [address] [place], [place] [id number] Visit Information Name: MARLIN PLUMMER ALEC [facility] Number: [id number] Current Date: 12/18/2016 11:47:57 Attending Provider: PHILIPPE ASTUDILLO APRN, CNP Primary Care Provider: HUY GAINES MD MARLIN [...] a day as needed for Allergy symptoms clindamycin topical (clindamycin 1% topical lotion) 1 barbara, Topical, two times a day as needed for Rash apply a thin film apply a thin film to affected area after washing This is a CHANGE [facility] [address] [place] [address] doxycycline (doxycycline monohydrate 100 mg oral tablet) 1 Tablet(s), Oral, two times a day as needed for Rash may take with food to minimize abdominal discomfort with fluids Routed to [facility] [address] [place] [address] lamoTRIgine (lamoTRIgine 300 mg oral tablet, extended release) 1 Tablet(s), Oral, once a day Takes 2tabs at night lithium (lithium carbonate) 300 mg, Oral, once a day (at bedtime) melatonin (melatonin 3 mg oral tablet) 1 Tablet(s), Oral OLANZapine (OLANZapine 7.5 mg oral tablet) 1 Tablet(s), Oral, once a day propranolol (propranolol 10 mg oral tablet) See Instructions, as needed for Anxiety 1 tab(s) PO Daily rizatriptan (Maxalt 10 mg oral tablet) 1 Tablet(s), Oral, as directed as needed for Migraine headache Take 1 tablet at onset of headache. Repeat after two hours if needed. Stop Taking the Following Medications: lorazepam (lorazepam) Medication list as of 12-18-16 11:47 Attention: If you have any medications at [...] Signed By: PHILIPPE ASTUDILLO APRN, CNP Signed On:18-DEC-2016 11:47:48 Additional Information: Source: [facility] POWERCHART Document Id: [id number] Miscellaneous - Philippe Astudillo APRN, C.N.P. - 12/18/2016 11:47 AM CDT Ambulatory Patient Summary [address] [id number] Visit Information Name: MARLIN PLUMMER [facility] Number: [id number] Current Date: 12/18/2016 11:47:58 Physicians Attending Provider: PHILIPPE ASTUDILLO APRN, CNP Primary Care Provider: HUY GAINES MD MARLIN [...] a day as needed for Allergy symptoms clindamycin topical (clindamycin 1% topical lotion) 1 barbara, Topical, two times a day as needed for Rash apply a thin film apply a thin film to affected area after washing This is a CHANGE [facility] [address] [place] [address] doxycycline (doxycycline monohydrate 100 mg oral tablet) 1 Tablet(s), Oral, two times a day as needed for Rash may take with food to minimize abdominal discomfort with fluids [facility] [address] [place] [address] lamoTRIgine (lamoTRIgine 300 mg oral tablet, extended release) 1 Tablet(s), Oral, once a day Takes 2tabs at night lithium (lithium carbonate) 300 mg, Oral, once a day (at bedtime) melatonin (melatonin 3 mg oral tablet) 1 Tablet(s), Oral OLANZapine (OLANZapine 7.5 mg oral tablet) 1 Tablet(s), Oral, once a day propranolol (propranolol 10 mg oral tablet) See Instructions, as needed for Anxiety 1 tab(s) PO Daily rizatriptan (Maxalt 10 mg oral tablet) 1 Tablet(s), Oral, as directed as needed for Migraine headache Take 1 tablet at onset of headache. Repeat after two hours if needed. Stop Taking the Following Medications: lorazepam (lorazepam) Medication list as of 12-18-16 11:47 Attention: If you have any medications at [...] Signed By: PHILIPPE ASTUDILLO APRN, CNP Signed On:18-DEC-2016 11:47:48 Your Allergies & Intolerances Substance Reaction Symptoms [...] Prolonged Active Migraine Headache (SANCHEZ) NOS Active Arthritis Rheumatoid (RA) Active Your Upcoming Appointments Date Time Location Provider No Appointments found Attention: Contact your local Clinic if further appointment detail needed. Folliculitis Folliculitis is an inflammation of the hair follicles (where the hair comes out of the skin). It is most often caused by infection with bacteria such as staph. Folliculitis usually looks like small white pimples in hairy areas of the skin. Severe cases may cause permanent hair loss and scarring. The condition is most often triggered by friction against the skin due to tight- fitting clothing. Ingrown hairs on the face of men are another cause. One type of folliculitis occurs after soaking in a hot tub when the water is contaminated with bacteria. Simple folliculitis usually clears by itself in a few days. Folliculitis that does not go away or comes back may need medical treatment. Oral and topical antibiotics may be used. Home care The following will help you care for folliculitis at home: ?? Wash the area with soap and water when you bathe, as usual. ?? Unless another medicine was prescribed, you can apply a topical antibiotic cream twice a day. Follow-up care Follow up with your doctor as advised by our staff. When to seek medical care Get prompt medical attention if any of the following occur: ?? Rash lasts longer than three days ?? Rash changes appearance or spreads ?? Abscess (boil) forms with local swelling, tenderness, or fluid drainage ?? Fever of 100.4?F (38?C) or higher, or as directed by your health care provider ?? [id number] [place] [address]. All rights reserved. This information is not [...] if you dont have one. Go to [email or web address] and click on Create Your Account. Then, follow the directions to complete the online form. Youll be asked for your [facility] number which you can find at the top of this document. Your Goals/Additional instructions: Source: [facility] POWERCHART Document Id: [id number] Miscellaneous - Ольга Hayes, LSarahP.N. - 12/18/2016 11:18 AM CDT Adult Vp Customer Service Intake/History Adult Vp Customer Service Intake/History Entered On: 12/18/2016 11:24 CDT Performed On: 12/18/2016 11:18 CDT by ОЛЬГА HAYES LPN Intake Chief Complaint : Weaned off of lyrica last winter because of insurance. Has not had anything for her artritis. Body is aching very bad. Has skin issures. Gets red raised and scaly. They peel and leavescars. Has a hard pea size ball on right side of labis. Weight gain. Temperature Core : 36.6 DegC(Converted to: 97.9 DegF) Peripheral Pulse Rate : 88 /min Respiratory Rate : 20 /min Heart Rhythm : Regular Systolic Blood Pressure : 116 mmHg Diastolic Blood Pressure : 72 mmHg NIBP Mean : 87 mmHg BP Location : Left upper extremity Blood Pressure Cuff Size : Regular Height : 165 cm(Converted to: 5 ft 5 inch(es), 65 inch(es)) Actual Weight : 79.00 kg(Converted to: 174 lb 3 oz) Weight Source : Standing scale Dosing Weight Clinic : 79 kg Clinic BSA : 1.9 Body Mass Index : 29.02 kg/m2 ОЛЬГА HAYES MANAGER MASSAGE DEPARTMENT - 12/18/2016 11:18 CDT General Info Information Given By : Patient Preferred Communication Mode : Verbal Languages : Romanian Is Patient Female and 13-50 no hysterectomy : Yes Status : Patient denies Are you ? : No ОЛЬГА HAYES [facility] - 12/18/2016 11:18 CDT Subjective Pain Symptoms : Yes ОЛЬГА HAYES MANAGER MASSAGE DEPARTMENT - 12/18/2016 11:18 CDT Pain Scale Pain Scale Verbal 0-10 : Open ОЛЬГА HAYES [facility] - 12/18/2016 11:18 CDT Pain Pain Assessment Grid Pain 1 Location : Other: All over body Intensity : 10 Time Pattern : Constant ОЛЬГА HAYES [facility] - 12/18/2016 11:18 CDT Dependent Habits Exposure to Tobacco Smoke : Patient smokes Smoking Status : Current every day smoker Tobacco 2A : Yes Tobacco Use/Currently Using : Yes Tobacco Use/Last 30 Days : Yes Tobacco Use/Last 12 months : Yes Type : Cigarettes: Less than 20 per day Tobacco Use/Advised to Quit : Yes Alcohol Use : Yes ОЛЬГА HAYES RONNIE - 12/18/2016 11:18 CDT Caffeine Use Grid Caffeine Use : Current Type : Coffee, Soft drinks Frequency : Daily DANTEMAGALYОЛЬГА MontesE MANAGER MASSAGE DEPARTMENT - 12/18/2016 11:18 CDT Recreational Drug Use Grid Drug Use : None ОЛЬГА HAYES LPN - 12/18/2016 11:18 CDT Source: [facility] POWERCHART Document Id: [id number] CDT!53 Miscellaneous - Ольга Hayse L.PSarahNSarah - 12/18/2016 11:12 AM CDT Health Assessment Health Assessment Entered On: 12/18/2016 11:14 CDT Performed On: 12/18/2016 11:12 CDT by ОЛЬГА HAYES LPN Health Assessment Complete Health Assessment Complete or Modified : Annual Health Assessment Annual Health Assessment Completed : Yes ОЛЬГА HAYES LPN - 12/18/2016 11:12 CDT Nutrition Nutrition Risk Factors by History Adult : None ОЛЬГА HAYES LPN - 12/18/2016 11:12 CDT Functional Current Daily Living Assistance : None ОЛЬГА HAYES LPN - 12/18/2016 11:12 CDT Dependent Habits Exposure to Tobacco Smoke : Patient smokes Smoking Status : Current every day smoker Tobacco 2A : Yes Tobacco Use/Currently Using : Yes Tobacco Use/Last 30 Days : Yes Tobacco Use/Last 12 months : Yes Type : Cigarettes: Less than 20 per day Tobacco Use/Advised to Quit : Yes Alcohol Use : Yes ОЛЬГА HAYES LPN - 12/18/2016 11:12 CDT Caffeine Use Grid Caffeine Use : Current Type : Coffee, Soft drinks Frequency : Daily ОЛЬГА HAYES LPN - 12/18/2016 11:12 CDT Recreational Drug Use Grid Drug Use : None ОЛЬГА HAYES LPN - 12/18/2016 11:12 CDT AUDIT Tool How Often Do You Have A Drink : 4 or more times a week How Many Drinks in a Day When Drinking : 5 or 6 Six or More Drinks On One Occassion : Weekly Audit Phase 1 Score : 9 ОЛЬГА HAYES LPN - 12/18/2016 11:12 CDT Psychosocial Domestic Abuse Concerns : None Behavioral Health Screen/Safety Assmt : No Faith Preference : ОЛЬГА BurrE RONNIE - 12/18/2016 11:12 CDT Advance Directive Advanced Directives : No Advance Directive Additional Information : No ОЛЬГА HAYES RONNIE - 12/18/2016 11:12 CDT Educ Needs Learning Style Preference Adult Grid Patient : Printed materials, Verbal explanation Family : Verbal explanation, Printed materials ОЛЬГА HAYES RONNIE - 12/18/2016 11:12 CDT Source: [facility] POWERCHART Document Id: [id number] CDT!42 documented in this encounter Plan of Treatment Not on filedocumented as of this encounter Procedures Procedure Name Priority Date/Time Associated Diagnosis Comme nts AUTOMATED Routine 12/18/2016 12:05 PM Results for this DIFFERENTIAL, B CDT procedure ar e in the results section. CBC WITH Routine 12/18/2016 12:05 PM Results for this DIFFERENTIAL, B CDT procedure ar e in the results section. documented in this encounter Results Automated Differential (12/18/2016 12:05 PM CDT) P athologist Signature Absolute 5.16 1.70 - POWERCHART Neutrophils 7.00 109L Lymphocytes 1.25 0.90 - POWERCHART 2.90 X109L Monocytes 0.67 0.30 - POWERCHART 0.90 X109L Eosinophils 0.16 0.05 - POWERCHART 0.50 X109L Absolute 0.03 0.00 - POWERCHART Basophil 0.30 X109L Specimen Anatomical Collection Method Collection Time Receive d Time (Source) Location / / Volume Laterality Blood 12/18/2016 12:05 12/18/2016 PM CDT 12:05 PM CDT Philippe Astudillo APRN, C.N.P. LAB BLOOD ADD-ON Performing Organization Address City/State/ZIP Code Phon e Number POWERCHART POWERCHART NA (ABNORMAL) CBC with Differential (12/18/2016 12:05 PM CDT) Patholo gist Method Time Signature Leukocytes 7.3 3.4 - 10.5 POWERCHART X109L Erythrocytes 4.14 3.90 - POWERCHART 5.03 D1732O Hemoglobin 14.1 12.0 - POWERCHART 15.5 GDL Hematocrit 42.2 34.9 - POWERCHART 44.5 MCV 101.9 (H) 82.0 - POWERCHART 98.0 FL HX RDW 12.3 11.9 - POWERCHART 15.5 Platelet Count 290 150 - 450 POWERCHART [id number] Specimen (Source) Anatomical Collection Method Collection Time Re ceived Time Location / / Volume Laterality Blood 12/18/2016 12:05 PM CDT Philippe Astudillo APRN, C.N.P. LAB BLOOD ADD-ON Performing Organization Address City/State/ZIP Code Phon e Number POWERCHART POWERCHART NA documented in this encounter Visit Diagnoses Not on filedocumented in this encounter Additional Health Concerns Assessment Noted Time PHQ-9 Depression Total Score: 8 09/20/2015 11:24 AM CD T documented as of this encounter Care Teams Wood Buffer Relationship Specialty Start Date End Date Huy Gaines M.D. PCP - General 09/14/16 11/18/17 documented as of this encounter
--- OUTSIDE RECORDS SUMMARY | 2022-02-02 11:04 | XMS_ITS | Encounter Summary ---
:1980 Author Organization [facility] Address [address] [place] [address] Care Team Providers Name Role Phone Unavailable Primary Care Provider Unavailable Encounter Details Date Type Department Care Team Description 04/12/2016 Hospital Encounter [facility]X [facility] Yi Valiente, SERVICE ORDER DISPATCHER, C.N.P. [address] [place], [place] [phone] (Wo rk) Social History [...] or relatives? How often do you attend rastafarian or Never 2019 sabianist services? Do you belong to any clubs or No 01/29/2019 organizations such as rastafarian groups, unions, fraternal or athletic groups, or [...] - Height 165 cm (5' 4.96) 04/12/2016 8:19 AM SLOT ATTENDANT Body Mass Index - - documented in [...] Procedure Name Priority Date/Time Associated Comments Diagnosis BI US WHOLE BREAST Routine 04/12/2016 9:53 AM Res ults for this BILATERAL SLOT ATTENDANT procedure are i n the results section. BI BREAST DIAGNOSTIC Routine 04/12/2016 9:03 AM R esults for this BILATERAL WITH SLOT ATTENDANT procedure are in TOMOSYNTHESIS the results section. documented in this encounter Results BI US Whole Breast Bilateral (04/12/2016 9:53 AM SLOT ATTENDANT) Anatomical Region Laterality Modality Breast Bilateral Ultrasound Specimen (Source) Anatomical Collection Method Collection Time Re ceived Time Location / / Volume Laterality 04/12/2016 9:53 AM SLOT ATTENDANT Addenda Addendum by Provider, Melody Montenegro 04/12/2016 9:53 AM SLOT ATTENDANT RAD^^^OW US Breast Bilat Complete 04/12/2016 09:53:46 Impressions 04/12/2016 10:47 AM SLOT ATTENDANT Benign cysts, ectatic ducts, and fibrocystic tissue. RECOMMENDATION: Recommend future surveil zane based on clinical grounds. BI-RADS ASSESSMENT: CODE: 2-BENIGN Appropriate letter sent. Full field digital mammography is used a nd Computer Aided Detection is performed on the digital mammogram im ages. BIRADS Narrative 04/12/2016 10:47 AM SLOT ATTENDANT EXAM: MA Digital Diag Bilat Mammo w/ Navarro o., US Breast Bilat Complete INDICATION: golactorrhea COMPARISON: None. HISTORY: ??For the last 7 years, patient has had right nipple milky discharge from left nipple clear/rodriguez di scharge. ??Mother had breast cancer at age 55. DENSITY: c. The breasts are heterogeneou sly dense, which may obscure small masses. FINDINGS: Imaging today included bilater al whole breast Tomosynthesis, bilateral full field true lateral views, bilateral magnification compression views of the r etroareolar regions, and bilateral whole breast ultrasound. There are no solid suspicious masses. Negative for malignancy. Right breast 2:00 and 4 cm from nipple h as tiny 3 mm cyst. Right 4:00 and 2 cm from nipple has small cysts or ectatic ducts. Right breast 9:00 and 2 cm from nipple has 6 mm cyst. Left breast 5:00 and 4 cm from nipple sarkar s 5 mm cyst. Left breast 8:00 and 5 cm from nipple has cluster of fibr ocystic tissue. I discussed findings with the patient. S he was satisfied. Procedure Note Willy Diaz M.D. / Lan Felix M.D. - 09/18/2016 EXAM: IN Digital Diag Bilat Mammo w/ Navarro o., US Breast Bilat Complete INDICATION: golactorrhea COMPARISON: None. HISTORY: For the last 7 years, patient h as had right nipple milky discharge from left nipple clear/rodriguez di scharge. Mother had breast cancer at age 55. DENSITY: c. The breasts are heterogeneou sly dense, which may obscure small masses. FINDINGS: Imaging today included bilater al whole breast Tomosynthesis, bilateral full field true lateral views, bilateral magnification compression views of the r etroareolar regions, and bilateral whole breast ultrasound. There are no solid suspicious masses. Negative for malignancy. Right breast 2:00 and 4 cm from nipple h as tiny 3 mm cyst. Right 4:00 and 2 cm from nipple has small cysts or ectatic ducts. Right breast 9:00 and 2 cm from nipple has 6 mm cyst. Left breast 5:00 and 4 cm from nipple sarkar s 5 mm cyst. Left breast 8:00 and 5 cm from nipple has cluster of fibr ocystic tissue. I discussed findings with the patient. S he was satisfied. IMPRESSION: Benign cysts, ectatic ducts, and fibrocystic tissue. RECOMMENDATION: Recommend future surveil zane based on clinical grounds. BI-RADS ASSESSMENT: CODE: 2-BENIGN Appropriate letter sent. Full field digital mammography is used a nd Computer Aided Detection is performed on the digital mammogram im ages. BIRADS Earlene Costello R.V.T., R.D.M.S. IMG BI PROCEDURES BI Breast Diagnostic Bilateral with Tomosynthesis (04/12/2016 9:03 AM SLOT ATTENDANT) Anatomical Region Laterality Modality Breast Bilateral Mammography Specimen (Source) Anatomical Collection Method Collection Time Re ceived Time Location / / Volume Laterality 04/12/2016 9:03 AM SLOT ATTENDANT Addenda Addendum by Provider, Melody Montenegro 04/12/2016 9:03 AM SLOT ATTENDANT RAD^^^OW MA Digital Diag Bilat Mammo w/ Yadiel 04/12/2016 09:03:47 Impressions 04/12/2016 10:47 AM SLOT ATTENDANT Benign cysts, ectatic ducts, and fibrocystic tissue. RECOMMENDATION: Recommend future surveil zane based on clinical grounds. BI-RADS ASSESSMENT: CODE: 2-BENIGN Appropriate letter sent. Full field digital mammography is used a nd Computer Aided Detection is performed on the digital mammogram im ages. BIRADS Narrative 04/12/2016 10:47 AM SLOT ATTENDANT EXAM: MA Digital Diag Bilat Mammo w/ Navarro o., US Breast Bilat Complete INDICATION: golactorrhea COMPARISON: None. HISTORY: ??For the last 7 years, patient has had right nipple milky discharge from left nipple clear/rodriguez di scharge. ??Mother had breast cancer at age 55. DENSITY: c. The breasts are heterogeneou sly dense, which may obscure small masses. FINDINGS: Imaging today included bilater al whole breast Tomosynthesis, bilateral full field true lateral views, bilateral magnification compression views of the r etroareolar regions, and bilateral whole breast ultrasound. There are no solid suspicious masses. Negative for malignancy. Right breast 2:00 and 4 cm from nipple h as tiny 3 mm cyst. Right 4:00 and 2 cm from nipple has small cysts or ectatic ducts. Right breast 9:00 and 2 cm from nipple has 6 mm cyst. Left breast 5:00 and 4 cm from nipple sarkar s 5 mm cyst. Left breast 8:00 and 5 cm from nipple has cluster of fibr ocystic tissue. I discussed findings with the patient. S he was satisfied. Procedure Note Willy Diaz M.D. / ProviderLan M.D. - 09/18/2016 EXAM: MA Digital Diag Bilat Mammo w/ Navarro o., US Breast Bilat Complete INDICATION: golactorrhea COMPARISON: None. HISTORY: For the last 7 years, patient h as had right nipple milky discharge from left nipple clear/rodriguez di scharge. Mother had breast cancer at age 55. DENSITY: c. The breasts are heterogeneou sly dense, which may obscure small masses. FINDINGS: Imaging today included bilater al whole breast Tomosynthesis, bilateral full field true lateral views, bilateral magnification compression views of the r etroareolar regions, and bilateral whole breast ultrasound. There are no solid suspicious masses. Negative for malignancy. Right breast 2:00 and 4 cm from nipple h as tiny 3 mm cyst. Right 4:00 and 2 cm from nipple has small cysts or ectatic ducts. Right breast 9:00 and 2 cm from nipple has 6 mm cyst. Left breast 5:00 and 4 cm from nipple sarkar s 5 mm cyst. Left breast 8:00 and 5 cm from nipple has cluster of fibr ocystic tissue. I discussed findings with the patient. S he was satisfied. IMPRESSION: Benign cysts, ectatic ducts, and fibrocystic tissue. RECOMMENDATION: Recommend future surveil zane based on clinical grounds. BI-RADS ASSESSMENT: CODE: 2-BENIGN Appropriate letter sent. Full field digital mammography is used a nd Computer Aided Detection is performed on the digital mammogram im ages. BIRADS Salome Quiroz(R), RSarahTSarah(R)(M) IMG BI PROCEDU RES documented in this encounter Visit Diagnoses Not on filedocumented in this encounter Additional Health Concerns Assessment Noted Time PHQ-9 Depression Total Score: 8 09/20/2015 11:24 AM CD T documented as of this encounter
--- OUTSIDE RECORDS SUMMARY | 2022-02-02 11:04 | XMS_ITS | Encounter Summary ---
:1980 Author Organization [facility] Address [address] [place] [address] Care Team Providers Name Role Phone Vadim Gaines M.D. Primary Care Provider Encounter Details Date Type Department Care Team Description 10/02/2016 Hospital Encounter HX [facility] Gayatri Espinal M.D. [address], [place] [phone] (Wo rk) Social History [...] do you attend druze or Never 2019 faith services? Do you belong to any clubs [...] - - Height 165 cm (5' 4.96) 10/02/2016 11:43 AM CDT Body Mass Index - - documented in [...] Associated Comments Diagnosis BUN (BLOOD UREA Routine 10/02/2016 11:51 Results for this NITROGEN), S/P AM CDT procedure are in the results section. ALANINE AMINOTRANSFERASE Routine 10/02/2016 11:51 Results for this (ALT), S/P AM CDT procedure are i n the results section. ASPARTATE Routine 10/02/2016 11:51 Results for this AMINOTRANSFERASE (AST), AM CDT proc edure are in S/P the results section. THYROID-STIMULATING Routine 10/02/2016 11:51 Resu lts for this HORMONE-SENSITIVE AM CDT procedure are in (S-TSH) the results section. ALKALINE PHOSPHATASE, Routine 10/02/2016 11:51 Re sults for this S/P AM CDT procedure are i n the results section. CREATININE WITH EGFR, Routine 10/02/2016 11:51 Re sults for this S/P AM CDT procedure are i n the results section. BILIRUBIN, TOT, S/P Routine 10/02/2016 11:51 Resu lts for this AM CDT procedure are i n the results section. LITHIUM LEVEL, S Routine 10/02/2016 11:51 Results for this AM CDT procedure are i n the results section. documented in this encounter Results [place] Level (10/02/2016 11:51 AM CDT) P athologist Signature [place], S 0.8 0.6 - 1.2 POWERCHART MMOLL Comment: Therapeutic Concentration: 0.6-1.2 mmol/ L (0.42-0.83 mg/dL) Toxic Range: >2.0 mmol/L (>1.39 mg/dL) Specimen (Source) Anatomical Collection Method Collection Time Re ceived Time Location / / Volume Laterality Blood 10/02/2016 11:51 AM CDT Hoda Horton DELI BAKERY CLERK LAB BLOOD ADD-ON Performing Organization Address City/State/ZIP Code Phon e Number POWERCHART S-TSH (Thyroid-Stimulating Hormone - Sensitive) (10/02/2016 11:51 AM CDT) athologist Signature TSH 2.34 0.27 - 4.20 POWERCHART (Thyrotropin) MIUL Comment: Biotin has been identified by the prema cturer as a potential interfering substance. Higher concentrations of biotin may be found in multivitamins, hair/nail supplements, and workout supplements. If the result does not match clinical observat ions, repeat testing after patient refrains from the use of supplements for at least 12 hours. Specimen (Source) Anatomical Collection Method Collection Time Re ceived Time Location / / Volume Laterality Blood 10/02/2016 11:51 AM CDT Hoda Horton DELI BAKERY CLERK LAB BLOOD ADD-ON Performing Organization Address City/State/ZIP Code Phon e Number POWERCHART Creatinine with Estimated GFR (MDRD) (10/02/2016 11:51 AM CDT) P athologist Signature Creatinine 0.79 0.60 - POWERCHART 1.10 MGDL HXeGFR (MDRD) >60 >=60 POWERCHART [id number] eGFR >60 >=60 POWERCHART Black/ [id number] [place] Specimen (Source) Anatomical Collection Method Collection Time Re ceived Time Location / / Volume Laterality Blood 10/02/2016 11:51 AM CDT Hoda Horton DELI BAKERY CLERK LAB BLOOD ADD-ON Performing Organization Address City/State/ZIP Code Phon e Number POWERCHART BUN (Blood Urea Nitrogen) (10/02/2016 11:51 AM CDT) athologist Signature BUN (Blood Urea 6 6 - 21 MGDL POWERCHART Nitrogen), S Specimen (Source) Anatomical Collection Method Collection Time Re ceived Time Location / / Volume Laterality Blood 10/02/2016 11:51 AM CDT Hoda Nolanden DELI BAKERY CLERK LAB BLOOD ADD-ON Performing Organization Address City/[facility]/ZIP Code Phon e Number POWERCHART Bilirubin, Total (10/02/2016 11:51 AM CDT) athologist Signature Bilirubin, 0.2 <=1.2 MGDL POWERCHART Total, S Specimen (Source) Anatomical Collection Method Collection Time Re ceived Time Location / / Volume Laterality Blood 10/02/2016 11:51 AM CDT Hoda Nolanden DELI BAKERY CLERK LAB BLOOD ADD-ON Performing Organization Address [facility]/ZIP Code Phon e Number POWERCHART AST (Aspartate Aminotransferase) (10/02/2016 11:51 AM CDT) [facility] gist Method Time Signature Aspartate 28 8 - 43 POWERCHART Aminotransferase UNITL (AST), S Specimen (Source) Anatomical Collection Method Collection Time Re ceived Time Location / / Volume Laterality Blood 10/02/2016 11:51 AM CDT Hoda Nolanden DELI BAKERY CLERK LAB BLOOD ADD-ON Performing Organization Address City/[facility]/ZIP Code Phon e Number POWERCHART ALT (Alanine Aminotransferase) (10/02/2016 11:51 AM CDT) athologist Signature Alanine 29 7 - 45 POWERCHART Amniotransferas UNITL e, LD Specimen (Source) Anatomical Collection Method Collection Time Re ceived Time Location / / Volume Laterality Blood 10/02/2016 11:51 AM CDT Hoda Nolanden DELI BAKERY CLERK LAB BLOOD ADD-ON Performing Organization Address City/[facility]/ZIP Code Phon e Number POWERCHART Alkaline Phosphatase (10/02/2016 11:51 AM CDT) athologist Signature Alkaline 42 35 - 105 UL POWERCHART Phosphatase, S Specimen (Source) Anatomical Collection Method Collection Time Re ceived Time Location / / Volume Laterality Blood 10/02/2016 11:51 AM CDT Hoda Horton DELI BAKERY CLERK LAB BLOOD ADD-ON Performing Organization Address City/State/ZIP Code Phon e Number POWERCHART documented in this encounter Visit Diagnoses Not on filedocumented in this encounter Additional Health Concerns Assessment Noted Time PHQ-9 Depression Total Score: 8 09/20/2015 11:24 AM CD T documented as of this encounter Care Teams Layer Out Relationship Specialty Start Date End Date Vadim Gaines M.D. PCP - General 09/14/16 11/18/17 documented as of this encounter
--- OUTSIDE RECORDS SUMMARY | 2022-02-02 11:05 | XMS_ITS | Encounter Summary ---
:1980 Author Organization [facility] Address [address] [place] [address] Care Team Providers Name Role Phone Unavailable Primary Care Provider Unavailable Encounter Details Date Type Department Care Team Description 09/20/[address] [facility] Huy Fernandez M.D. [address] [facility], [facility] [address] [phone] Social History Tobacco Use Types Packs/Day [...] do you attend mormonism or Never 2019 shinto services? Do you belong to any clubs [...] Sign Reading Time Taken Comments Blood Pressure 115/73 09/20/2015 11:25 AM CDT Pulse 98 09/20/2015 11:25 AM CDT Temperature - - Respiratory Rate 16 09/20/2015 11:25 AM CDT Oxygen Saturation - - Inhaled Oxygen Concentration - - Weight 77 kg (169 lb 12.1 oz) 09/20/2015 11:25 AM CDT Height 165 cm (5' 4.96) 09/20/2015 11:25 AM CDT Body Mass Index 28.28 09/20/2015 11:25 AM CDT documented in this encounter Medications [...] tablet documented as of this encounter Progress Huy Collado M.D. - 09/20/2015 11:08 AM CDT [id number] CHIEF COMPLAINT/REASON FOR VISIT Establish care. HISTORY OF PRESENT ILLNESS Marlin is a 35-year-old female who presents to the clinic today to establish care. I saw her in 2011for consultation for fibromyalgia. Her previous primary care provider was Dr. Martinez at [facility]. She signed record release from [facility]. She has chronic pain. She was placed on Plaquenil about one month ago after CRP came back elevated. Per the patient, sedimentation rate was normal. She was also started on short term tapering dose of Prednisone. It seems to be a bit better, but she still has pain. She has joint pain in her hands, wrists, right shoulder, left hip, both knees, and left ankle. She was diagnosed with juvenile rheumatoid arthritis at 19 months. She is taking Lyrica 300 mg three times a day. She has intermittent chest pain underneath her left breast. It is a sharp pain when she takes a deep breath. She denies hair loss or skin rash. She has occasional headaches. She denies morning headache. Her headaches typically start in temporalarea. She does have history of migraines. She takes Maxalt as needed and works well when she catchesthe symptoms early enough. She has neck stiffness in the morning when she wakes up. Lamotrigine was started by her psychiatrist. She is transferring to a different psychiatrist in [facility]. Her psychiatrist manages her Lorazepam, Olanzapine, and Lamotrigine. Her PHQ-9 score was 8 today. She denies any suicidal ideology. 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 It should be noted that she has history of three psychiatric hospitalizations. First time was in January of 2010. Most recently, she was admitted to [facility] in December 2012 for worsening depression with suicidal ideation. She was hospitalized for 5 days. She mentioned that she has tingling and numbness in her feet occasionally. She denies history of diabetes mellitus type 2. We discussed health preventative services. She had Pap smear on 09/02/2015, performed by Zoë Nick, TIM/CINDA. It was negative. She denies history of abnormal Pap smear. She was advised to see perinatal coordinator for Mirena replacement as recommended by Zoë Nick. Marlin mentioned that she sees a chiropractor for her back pain. It seems to help. I reviewed her medication list. We discussed potential side effects. There are no additional questions, concerns, or complaints. MEDICATIONS Zyrtec 10 mg by mouth daily. Plaquenil 400 mg by mouth daily. Lamotrigine 100 mg by mouth daily. Lamotrigine 150 mg by mouth at bedtime. Lorazepam 1 mg by mouth every 6 hours as needed. Melatonin 9 mg by mouth at bedtime. Olanzapine 10 mg by mouth at bedtime. Prednisone 5 mg by mouth daily. Lyrica 300 mg by mouth three times a day. Maxalt 10 mg by mouth as directed as needed. ALLERGIES Feldene causing rash. Latex. Morphine causing nausea, vomiting. Naproxen Sodium. SYSTEMS REVIEW Please see HPI for pertinent positives, otherwise rest of ROS negative. PAST MEDICAL/SURGICAL HISTORY Depression with anxiety disorder. Fibromyalgia with chronic pain. Juvenile rheumatoid arthritis. Raynauds phenomenon. Gastroesophageal reflux disease. Tobacco abuse. Irregular menstruation, status post D&C in 03/2007. Status post left wrist surgery. Status post left ankle fusion, 2000. Status post umbilical hernia repair. Status post nasal septoplasty, endoscopic partial resection right middle turbinate reduction, and right inferior turbinate submucosal cautery, 08/07/2012. PREVENTIVE SERVICES Tetanus booster: 11/03/2008. Influenza: 03/06/2011. SOCIAL HISTORY She is . She has 3 children, 2 girls and 1 boy. She smokes cigarettes since she was 17, currently 1 PPD. She drinks alcohol occasionally. She denies drug abuse. FAMILY HISTORY Breast cancer in mother. Fibromyalgia in sister. Rheumatoid arthritis in grandmother. Thyroid cancerin father. VITAL SIGNS HEIGHT: 165 cm. WEIGHT: 77 kg. BMI: 28.28 kg/m2. PULSE: 98 /min. RESP: 16 /min. SYSTOLIC: 115 mmHg. DIASTOLIC: 73 mmHg. PHYSICAL EXAMINATION GENERAL: Patient is sitting. No distress. Able to talk without interruption. SKIN: No rash, bruise, or nodules. She has eight tattoos. HEAD: No facial rash, asymmetry, or sinus tenderness. EYES: PERRLA. EOMI. No pallor, icterus, or conjunctivitis. ENT: No nasal congestion, discharge, or bleeding. There is no ear infection or discharge. No mastoidtenderness. Tongue is moist and midline. No oral lesions. LYMPH NODES: No cervical or supraclavicular lymphadenopathy. PERIPHERAL VESSELS: Good radial and pedal pulses except for decreased dorsalis pedis. HEART: No carotid bruit. No JVD. Regular rhythm. There is no S3, gallop, murmur, or thrill. LUNGS: Normal respiratory effort. Clear to auscultation. Normal percussion. ABDOMEN: Moves with respiration. Bowel sounds present. Soft. No rebound tenderness, guarding, or rigidity. No organomegaly. SPINE: No scoliosis or kyphosis. No spinous tenderness or mass. JOINTS: No joint swelling or deformity. No decreased range of motion. EXTREMITIES: No clubbing, cyanosis, edema, infection, or calf tenderness. MENTAL: Alert and oriented x 3. Normal mood and affect. NEURO: Intact cranial nerves. Intact sensory and motor. Grossly nonfocal exam. IMPRESSION/REPORT/PLAN 1. Fibromyalgia with chronic pain syndrome. She continues to have pain. She is currently on Lyrica 150 mg twice a day. She is also on Lamotrigine, Lorazepam, and Olanzapine which are managed by her psychiatrist. There were no side effects. We discussed further evaluation and management. It was decidedto refer her to embedded software developer at [facility]. 2. Juvenile rheumatoid arthritis. She was started on Plaquenil by previous care provider. She will continue Plaquenil daily and tapering dose of Prednisone. Need to see director water and waste services every 6 months. She needs to see embedded software developer. We will follow rheumatologists recommendations. 3. Abnormal CRP. It may be related to inflammatory arthritis. Need to get record from [place]. 4. Migraine headache. It is controlled currently. She takes Maxalt as needed. Patient is stable froma neurological standpoint. She doesnt need to see neurologist at this time. 5. Tobacco abuse. I recommended smoking cessation. She is not ready yet. We discussed complications. The patient will return to the clinic after rheumatology consultation. This document serves as a record of services personally performed by Dr. Huy Gaines. It was created on their behalf by Genaro Gallegos, a trained neuropsychology medical consultant. The creation of this record is based on the scribe's personal observations and the provider's statements to them. This document has been checked and approved by the attending provider. Huy Gaines M.D./valery Electronically Signed By: HUY GAINES MD On: 09/20/2015 01:17 PM Modified by and Electronically Signed by: HUY GAINES MD On: 09/20/2015 01:17 PM Source: [facility] MHSDOLBEYNONRADSYS Document Id: [id number] documented in this encounter Miscellaneous Notes Telephone Encounter - Conversion, Historical Provider Ser - 11/08/2015 10:23 AM CDT *Phone Message Document Contains Addenda Addendum by MIRTHA OVIEDO LPN on November 09, 2015 09:43:34 CDT Called and informed patient of Dr. Gaines's recommendations. Patient was willing to see Dr. Jamel harden transferred to scheduling to make an appointment. Addendum by ROSY OGLESBY on November 09, 2015 09:21:40 CDT Pt returning call. Please call back. Addendum by MIRTHA OVIEDO LPN on November 08, 2015 18:22:09 CDT Left message for patient to return my call. Addendum by HUY GAINES MD on November 08, 2015 18:19:12 CDT From: HUY GAINES MD To: [facility]der Nurse; Sent: 11/08/2015 18:19:12 CDT Subject: RE: *Phone Message Actions: Notify patient- refer to General Message, Notify patient of Future Order Please call. She needs to follow with [facility] for management of rheumatoid arthritis, fibromyalgia and chronic pain syndrome. I don't want her to take Narcotic pain medication because of potential side effects and complications. One option is getting Dr. Mccullough consultation. Order is in EHR. Addendum by MIRTHA OVIEDO LPN on November 08, 2015 10:43:54 CDT From: MIRTHA OVIEDO LPN ( [facility] Nurse) To: HUY GAINES MD; Sent: 11/08/2015 10:43:54 CDT Subject: FW: *Phone Message From: CARLYLE MOELLER ([facility]) To: Eder Nurse; Sent: 11/08/2015 10:23:58 CDT Subject: *Phone Message Caller is: (x ) Patient ( ) Mother ( ) Father ( ) Spouse ( ) Daughter ( ) Son ( ) Pharmacy ( ) Other: Physician: Patient MRN #: Reason for Call: Patient saw Dr. Gaines about a month ago for pain. She says that the Tylenol and Ibuprofen are not helping. She has so much physical pain now that it is affecting her function during theday. She uses [facility] in [email or web address]. She can be reached at [phone]. It is ok to leave a detailed message. Message: Advice/Action: Source used: ( ) Verbalizes understanding [...] back cell phone number ( ) Source: [facility] POWERCHART Document Id: [id number] Telephone Encounter - Conversion, Historical Provider Ser - 10/22/2015 11:02 AM CDT *Phone Message- Document Contains Addenda Addendum by MIRTHA OVIEDO LPN on October 22, 2015 11:55:41 CDT Called and spoke with patient. Patient is unable to go to the [facility]. Patient is going to continue to work with the [facility] [employer] in [place]. She will let us know if there is anything we can do for her. Addendum by HUY GAINES MD on October 22, 2015 11:51:43 CDT From: HUY GAINES MD To: Eder Nurse; Sent: 10/22/2015 11:51:43 CDT Subject: RE: *Phone Message- Actions: Notify patient- refer to General Message Can she go to [place] to see Jamb Cutter? Addendum by MIRTHA OVIEDO LPN on October 22, 2015 11:47:52 CDT From: MIRTHA OVIEDO LPN ([facility] Nurse) To: HUY GAINES MD; Sent: 10/22/2015 11:47:52 CDT Subject: FW: *Phone Message- From: KARINA BLUE ([facility] 2W Nurse) To: Eder Nurse; Sent: 10/22/2015 11:02:56 CDT Subject: *Phone Message- Caller is: ( x ) Patient ( ) Mother ( ) Father ( ) Spouse ( ) Daughter ( ) Son ( ) Pharmacy ( ) Other: Physician: Patient MRN #: Reason for Call: Message: [place] in [place] called and needs to pay off balance before she can see embedded software developer. She can be reached at [phone] Advice/Action: Source used: ( ) Verbalizes understanding [...] back cell phone number ( ) Source: [facility] [employer]Stack Document Id: [id number] Miscellaneous - Huy Gaines M.D. - 09/20/2015 12:08 PM CDT Ambulatory Patient Summary [address] [id number] Visit Information Name: MARLIN PLUMMER [facility] Number: [id number] Current Date: 09/20/2015 12:08:30 Physicians Attending Provider: HUY GAINES MD Primary Care Provider: HUY GAINES MD [...] 1 cap, Oral, two times a day This is a CHANGE rizatriptan (Maxalt 10 mg oral tablet) 1 Tablet(s), Oral, as directed as needed for Migraine headache Take 1 tablet at onset of headache. Repeat after two hours if needed. Stop Taking the Following Medications: Medication list as of 09-20-15 12:08 Attention: If you have any medications at home that are not on this list, DO NOT take them until youcontact your provider for clarification. Give a copy of your medication list to your primary care provider. Update your medication list any time medications or doses are changed and carry your medication list at all times in case of emergency. Electronically Signed By: HUY GAINES MD Signed On:20-SEP-2015 12:08:26 Your Allergies & Intolerances Substance Reaction Symptoms [...] if you dont have one. Go to [email or web address] and click on Create Your Account. Then, follow the directions to complete the online form. Dwight be asked for your [facility] number which you can find at the top of this document. Your Goals/Additional instructions: Source: [facility] POWERCHART Document Id: [id number] Miscellaneous - Huy Gaines M.D. - 09/20/2015 12:08 PM CDT Ambulatory Discharge Medication List [address] [id number] Visit Information Name: MARLIN PLUMMER [facility] Number: [id number] Visit Date: 09/20/2015 12:08:29 Attending Provider: HUY GAINES MD Primary Care Provider: HUY GAINES MD [...] 1 cap, Oral, two times a day This is a CHANGE rizatriptan (Maxalt 10 mg oral tablet) 1 Tablet(s), Oral, as directed as needed for Migraine headache Take 1 tablet at onset of headache. Repeat after two hours if needed. Stop Taking the Following Medications: Medication list as of 09-20-15 12:08 Attention: If you have any medications at home that are not on this list, DO NOT take them until youcontact your provider for clarification. Give a copy of your medication list to your primary care provider. Update your medication list any time medications or doses are changed and carry your medication list at all times in case of emergency. Electronically Signed By: HUY GAINES MD Signed On:20-SEP-2015 12:08:26 Additional Information: Source: [facility] [employer]Stack Document Id: [id number] Malia - Huy Gaines M.D. - 09/20/2015 12:07 PM CDT Need Rheumatology consult at [facility] Document Contains Addenda Addendum by ALISON [facility] on September 30, 2015 14:48 CDT 09/30/15 [place] was unable to schedule rheumatology appointment due to business office issues at this time. Addendum by MIRTHA OVIEDO LPN on September 20, 2015 15:15:48 CDT Online referral completed and submitted to [place]. They will contact patient directly with appointment information. From: HUY GAINES MD To: NIYA Gaines Nurse; Sent: 09/20/2015 12:07:45 CDT Subject: Need Rheumatology consult at [facility] Actions: Notify patient- refer to General Message, Notify patient of Future Order She needs Rheumatology consult at [facility]. Dx: Management of rheumatoid arthritis, fibromyalgia and chronic pain syndrome. Source: [facility] POWERCHART Document Id: [id number] Miscellaneous - Katharine Stanley L.P.N. - 09/20/2015 11:25 AM CDT Adult Sales Trader Intake/History Adult Sales Trader Intake/History Entered On: 09/20/2015 11:28 CDT Performed On: 09/20/2015 11:25 CDT by AUGIE KATHARINEMED SPRINGER LPN Intake Chief Complaint : new patient Peripheral Pulse Rate : 98 /min Respiratory Rate : 16 /min Heart Rhythm : Regular Systolic Blood Pressure : 115 mmHg Diastolic Blood Pressure : 73 mmHg NIBP Mean : 87 mmHg BP Location : Left upper extremity Blood Pressure Cuff Size : Regular Height : 165 cm(Converted to: 5 ft 5 inch(es), 65 inch(es)) Actual Weight : 77 kg(Converted to: 169 lb 12 oz) Weight Source : Standing scale Dosing Weight Clinic : 77 kg Clinic BSA : 1.88 Body Mass Index : 28.28 kg/m2 STANLEYKATHARINE JESUS RACHEAL [facility] 09/20/2015 11:25 CDT General Info Information Given By : Patient Languages : Slovenian Is Patient Female and 13-50 no hysterectomy : Yes Status : Patient denies Are you ? : No KATHARINE STANLEY EXECUTIVE RECRUITER 09/20/2015 11:25 CDT Subjective Pain Symptoms : Yes KATHARINE STANLEY EXECUTIVE RECRUITER 09/20/2015 11:25 CDT Pain Scale Pain Scale Verbal 0-10 : Open AUGIE KATHARINEMED SPRINGER EXECUTIVE RECRUITER 09/20/2015 11:25 CDT Pain Pain Assessment Grid Pain 1 Location : Other: pain in every joint STANLEYKATHARINE [facility] 09/20/2015 11:25 CDT Dependent Habits Exposure to Tobacco Smoke : Patient smokes Smoking Status : Current every day smoker Tobacco 2A : Yes Tobacco Use/Currently Using : Yes Tobacco Use/Last 30 Days : Yes Tobacco Use/Last 12 months : Yes Type : Cigarettes: Less than 20 per day Tobacco Use/Advised to Quit : Yes AUGIE KATHARINEMED SPRINGER LPN 09/20/2015 11:25 CDT Caffeine Use Grid Caffeine Use : Current Type : Coffee, Soft drinks Frequency : Daily AUGIE KATHARINEMED SPRINGER EXECUTIVE RECRUITER 09/20/2015 11:25 CDT Recreational Drug Use Grid Drug Use : None AUGIE KATHARINEMED SPRINGER LPN 09/20/2015 11:[address] [facility] POWERCHART Document Id: [id number] CDT!48 Miscellaneous - Katharine Stanley L.P.N. - 09/20/2015 11:24 AM CDT PHQ-9 PHQ-9 Entered On: 09/20/2015 11:25 CDT Performed On: 09/20/2015 11:24 CDT by KATHARINE STANLEY LPN PHQ-9 Little interest or pleasure in doing things : Several days Feeling down, depressed, or hopeless : Several days Trouble falling or staying asleep, or sleeping too much : Several days Feeling tired or having little energy : Several days Poor appetite or overeating : More than half the days Feeling bad about yourself or that you are a failure : Several days Trouble concentrating on things : Several days Moving or speaking slowly; restless or fidgety : Not at all Thoughts that you would be better off /hurting self : Not at all PHQ-9 Calculated Score : 8 Problems make work, home, or dealing with others : Somewhat difficult KATHARINE STANLEY LPN - 09/20/2015 11:24 CDT Source: [employer] Document Id: [id number] CDT!13 documented in this encounter Plan of Treatment Not on filedocumented as of this encounter Visit Diagnoses Not on filedocumented in this encounter Additional Health Concerns Assessment Noted Time PHQ-9 Depression Total Score: 8 09/20/2015 11:24 AM CD T documented as of this encounter
--- OUTSIDE RECORDS SUMMARY | 2022-02-02 11:05 | XMS_ITS | Encounter Summary ---
:1980 Author Organization [facility] Address [address] [place] [address] Care Team Providers Name Role Phone Unavailable Primary Care Provider Unavailable Encounter Details Date Type Department Care Team Description 04/25/2011 Hospital Encounter HX [facility] Huy Fernandez M.D. [address] [facility], [facility] [address] [id number] Social History Tobacco Use Types Packs/Day [...] Sign Reading Time Taken Comments Blood Pressure 92/54 04/25/2011 9:40 AM HOUSE MOVER Pulse 96 04/25/2011 9:40 AM HOUSE MOVER Temperature - - Respiratory Rate 18 04/25/2011 9:40 AM HOUSE MOVER Oxygen Saturation - - Inhaled Oxygen Concentration - - Weight 61.5 kg (135 lb 9.3 oz) 04/25/2011 9:40 AM HOUSE MOVER Height 168 cm (5' 6.14) 04/25/2011 9:40 AM HOUSE MOVER Body Mass Index 21.79 04/25/2011 9:40 AM HOUSE MOVER documented in this encounter Consult Notes Huy Gaines M.D. - 04/25/2011 12:00 AM CST [id number] CHIEF COMPLAINT/ REASON FOR VISIT This is a medical consultation requested by Dr. Negro for fibromyalgia. HISTORY OF PRESENT ILLNESS This is a 31-year-old female came in today for above complaints. She saw Dr. Negro recently. She was referred to see Internal Medicine for further evaluation and management of fibromyalgia. According to the patient she has been followed with Dr. Willy Serrano from [facility], who is her primary care physician. Patient was diagnosed with juvenile rheumatoid arthritis at the age of 19 months. She was treated for awhile. Then 2 1/2 half years ago she was diagnosed with fibromyalgia. She saw treasury specialist. She has chronic pain and tender points sometimes she has pain from arthritis and stiffness. She has been followed with Dr. Serrano closely. Some of her medications were adjusted recently. In the past she took gabapentin and now switched to Lyrica. She has been seeing a psychiatrist for her anxiety disorder with depression. According to the patient, she could not see specialist because lack of insurance coverage. She has been followed with Dr. Serrano. One time she was treated with high dose of steroids for her fibromyalgia. Arthritis symptoms were getting worse following after delivery of her youngest child. She has never been to fibromyalgia clinic. I do not have any record from [facility]. I reviewed some records from [facility] in [place]. CURRENT MEDICATIONS 1. Lyrica 100 milligrams 2 capsules by mouth twice a day 2. Nortriptyline 10 milligrams 3 capsules by mouth daily at bedtime. 3. Clonazepam 1 milligram by mouth daily at bedtime 4. Hyoscyamine 0.375 milligrams by mouth every 12 hours as needed. 5. Spironolactone 25 milligrams by mouth twice a day 6. Pantoprazole 40 milligrams by mouth daily 7. Mirena. 8. Flexeril 10 milligrams by mouth daily at bedtime. 9. Zolpidem 5 milligrams by mouth daily at bedtime as needed 10. Tylenol 500 and mg by mouth twice a day. 11. Tramadol 100 milligrams by mouth twice a day 12. Citalopram 30 milligrams by mouth daily in the morning 13. Lorazepam 1 milligram by mouth every 6 hours as needed for anxiety. ALLERGIES Latex and Naproxen SYSTEMS REVIEW As per the history of present illness. Other systems are reviewed and are negative. PAST MEDICAL/SURGICAL HISTORY 1. Depression with anxiety disorder. She is being followed with psychiatrist. 2. Fibromyalgia with chronic pain. She has been followed with Dr. Willy Serrano, primary care physician from [facility] 3. History of juvenile rheumatoid arthritis 4. Raynaud's phenomenon per record 5. Gastroesophageal reflux disease. 6. Irregular menstruation ,status post hysteroscopy D&C in March 2007 7. Status post left wrist surgery 8. Status post left ankle fusion. PREVENTIVE SERVICES Reviewed and updated as per the EMR. SOCIAL HISTORY She is . She has three children. She smokes tobacco. She is not ready to quit. 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 FAMILY HISTORY There is family history of rheumatoid arthritis in both grandmother and great-grandmother, arthritis in her father's side, anxiety, depression in her father's side. Breast cancer in mother and paternal grandmother, uterine cancer in paternal aunt. Thyroid cancer in her father and paternal cousin. VITAL SIGNS HEIGHT: 168 centimeter WEIGHT. 61.5 kg BMI 21.79 TEMPERATURE 36.7 PULSE 96 RESPIRATIONS 18 OXYGEN SATURATION 97% room air BLOOD PRESSURE 92/54 left arm sitting. PHYSICAL EXAM GENERAL: She is sitting no distress. Able to talk without interruption. SKIN: No rash, bruise or nodule. HEAD: No facial rash, asymmetry or sinus tenderness. EYES: PERRLA, EOMI. No pallor, icterus or conjunctivitis. ENT: No nasal congestion, discharge or bleeding. There is no ear infection or discharge. No mastoid tenderness. Tongue is moist, midline. No oral lesions. LYMPH NODES: There was no cervical or supraclavicular lymphadenopathy. No thyromegaly. No thyroid thrill or bruit. HEART: Regular rhythm. There is no S3, gallop, no obvious murmur. LUNGS: Normal respiratory effort. Clear to auscultation. Normal percussion. ABDOMEN: Moves with respiration. Bowel sounds present. Soft. No rebound, tenderness, guarding, or rigidity. No organomegaly. SPINE: No scoliosis or kyphosis. No spinous tenderness or mass. JOINTS: No joint swelling or deformity. No decreased range of motion. EXTREMITIES: No clubbing, cyanosis, edema, infection, or calf tenderness. MENTAL: Alert and oriented x 3. Normal mood and affect. NEURO: Grossly nonfocal exam disease. The exam. IMPRESSION/REPORT/PLAN 1. Fibromyalgia with chronic pain. I reviewed her medications. Patient is already on appropriate medications. Discussed with her about management of fibromyalgia and chronic pain. She has been closely followed with Dr. Willy Serrano, her primary care physician from [facility]. Advised her to continue current medication. If there is no significant response she can try Cymbalta or Savella. It is better for her to work with psychologist, her primary care physician and physical therapy. Idealy she would benefit from going to fibromyalgia clinic at [facility] in [place] or [facility]. She will talk to her psychiatrist and Dr. Willy Serrano. She will continue current medications for the time being. 2. Juvenile rheumatoid arthritis. Patient does not know whether she was tested for CCP antibody, but she knew her rheumatoid factor was low. It is better for her to see treasury specialist. 3. Tobacco use. Patient smokes tobacco. She was advised to quit smoking. She is not ready to quit at this point. All of her questions were answered. She will discuss with Dr. Willy Serrano, primary care physician and psychiatrist and physical therapy regarding management of her fibromyalgia and chronic pain syndrome. Thank you for long me to participate in care of this patient PP/kmk Signed Huy Gaines M.D. Internal Medicine CC: Yasemin Negro M.D. Obstetrics & Gynecology [address] [place] [address] Electronically Signed By: HUY GAINES MD On: 05/15/2011 05:34 PM Modified by and Electronically Signed by: HUY GAINES MD On: 05/15/2011 05:34 PM Source: [facility] MHSDOLBEYNONRADSYS Document Id: [id number] E MOVER documented in this encounter Nursing Notes Conversion, Historical Provider Ser - 12/08/2011 8:48 AM CDT Phone Call Attempted to reach patient but was unable as phone was busy. Electronically Signed By: ALISON PEOPLES LPN On: 12/08/2011 08:49 AM Source: [employer] Document Id: [id number] documented in this encounter Miscellaneous Notes Miscellaneous - Matt Hayes L.P.N. - 04/26/2011 8:25 AM CST PHQ-9 Document Contains Addenda Addendum by TERRI BAILEY LPN on 27 November 2011 14:05:02 CDT msg left From: AMTT HAYES LPN To: TERRI BAILEY LPN; Sent: 04/26/2011 08:25:56 HOUSE MOVER Show up: 09/25/2011 08:25:00 CDT Subject: PHQ-9 Due Date/Time: 10/24/2011 08:25:00 CDT Please Remember to: Call patient and have them schedule a 6 month follow up of depression. PHQ-9 needs to be completed within 30 days of 10/24/2011 PATIENT: ( x ) Call Patient ( ) Ask Patient to ( ) ( ) Call Relative ( x ) Schedule Patient ( ) ( ) Call for Packing And Final Assembly Supervisor ( ) Follow up on Results ( ) Other: PROVIDER: ( ) Call Physician ( ) Call Pharmacist ( ) Call Lab ( ) Other: Special Instructions: Comments: Source: [employer] Document Id: [id number] Miscellaneous - Huy Gaines M.D. - 04/25/2011 10:16 AM CST Ambulatory Patient Summary [address] [address] Visit Information Name: MARLIN PLUMMER Current Date: 04/25/2011 10:16:38 Primary Care Provider: PCP, UNASSIGNED Your Medications Here is a list of your medications. It is important to take your medications as directed. Use a pillbox or chart to help remind you to take your medications. Please let your doctor or nurse know if you have problems taking your medications. Medication/Strength Dose Route Frequency Indications/Special Instructions/Comments pregabalin (Lyrica 100 mg oral capsule) 200 mg Oral two times a day nortriptyline (nortriptyline 10 mg oral capsule) 30 mg Oral once a day (at bedtime) clonazepam (clonazepam 1 mg oral tablet) 1 mg Oral once a day (at bedtime) hyoscyamine (HyoMax SR 0.375 mg oral tablet, extended release) 0.375 mg Oral every 12 hours as needed for Abdominal pain spironolactone (spironolactone 25 mg oral tablet) 25 mg Oral two times a day pantoprazole (pantoprazole 40 mg oral granule, enteric coated) 40 mg Oral once a day levonorgestrel (Mirena) 1 each cyclobenzaprine (Flexeril) 10 mg Oral once a day (at bedtime) zolpidem (zolpidem) 5 mg Oral once a day (at bedtime) as needed for Insomnia acetaminophen (Tylenol) 500 mg Oral two times a day tramadol (tramadol) 100 mg Oral two times a day With Tylenol. citalopram (citalopram) 30 mg Oral once a day (in the morning) lorazepam (lorazepam) 1 mg Oral every 6 hours as needed for Anxiety Your Allergies & Intolerances Substance Reaction Symptoms Category Comments Latex Drug Naproxen Sodium Drug Your Problem List Problem Status Onset Comments Juvenile rheumatoid arthritis Active Fibromyalgia Active Raynaud's phenomenon Active Esophageal reflux (GERD) Active Depression with Anxiety* Active Your Recommendations We want to make sure you get the tests, immunizations, and guidance you need to stay healthy. Here is a customized list of recommendations, based on information we have in your medical record. Your doctor may have additional recommendations for you, based on your personal medical history and risk factors. You can help us by calling us to make an appointment when you are due for your tests. Additional information regarding recommendations: Test/Treatment Last Done Next Due Additional Information Depression: PHQ-9 every 6 months 04/25/2011 Health Assessment every 1 year 04/25/2011 Screening Pap Smear every 3 years Women 21-65 04/25/2011 Checks for signs of cancer of the cervix. Lipid Panel every 5 years Age 20-75 04/04/2011 04/02/2016 Checks blood for good (HDL) and bad (LDL) cholesterol. Know your numbers, they are one indicator of your risk for heart attack and stroke. Vaccine: Tetanus every 10 years 11/03/2008 11/01/2018 Immunization to help prevent you from getting the serious disease Tetanus (Lockjaw). Your Upcoming Appointments Date Time Location Reason Provider No Appointments found Your Goals/Additional instructions: Source: [facility] POWERCHART Document Id: [id number] E MOVER Miscellaneous - Huy Gaines M.D. - 04/25/2011 10:16 AM CST Ambulatory Depart Summary [address] [address] Visit Information Name: MARLIN PLUMMER Current Date: 04/25/2011 10:16:36 Attending Provider: HUY GAINES MD Primary Care Provider: PCP, UNASSIGNED MARLIN LPUMMER has been given the following list of medications: Your Medications It is important to take your medications as directed. Use a pill box or chart to help remind you to take your medications. Please let your doctor or nurse know if you have problems taking your medications. Medication/Strength Dose Route Frequency Indications/Special Instructions/Comments pregabalin (Lyrica 100 mg oral capsule) 200 mg Oral two times a day nortriptyline (nortriptyline 10 mg oral capsule) 30 mg Oral once a day (at bedtime) clonazepam (clonazepam 1 mg oral tablet) 1 mg Oral once a day (at bedtime) hyoscyamine (HyoMax SR 0.375 mg oral tablet, extended release) 0.375 mg Oral every 12 hours as needed for Abdominal pain spironolactone (spironolactone 25 mg oral tablet) 25 mg Oral two times a day pantoprazole (pantoprazole 40 mg oral granule, enteric coated) 40 mg Oral once a day levonorgestrel (Mirena) 1 each cyclobenzaprine (Flexeril) 10 mg Oral once a day (at bedtime) zolpidem (zolpidem) 5 mg Oral once a day (at bedtime) as needed for Insomnia acetaminophen (Tylenol) 500 mg Oral two times a day tramadol (tramadol) 100 mg Oral two times a day With Tylenol. citalopram (citalopram) 30 mg Oral once a day (in the morning) lorazepam (lorazepam) 1 mg Oral every 6 hours as needed for Anxiety Additional Information: Yes - Current list of reconciled medications is provided and explained to the patient and/or family, guardian/caregiver. Source: [facility] POWERCHART Document Id: [id number] E MOVER Miscellaneous - Conversion, Historical Provider Ser - 04/25/2011 10:10 AM HOUSE MOVER PHQ-9 PHQ-9 Entered On: 04/25/2011 11:33 HOUSE MOVER Performed On: 04/25/2011 10:10 HOUSE MOVER by TERRI BAILEY LPN PHQ-9 Little interest or pleasure in doing things : More than half the days Feeling down, depressed, or hopeless : More than half the days Trouble falling or staying asleep, or sleeping too much : Nearly every day Feeling tired or having little energy : Nearly every day Poor appetite or overeating : Nearly every day Feeling bad about yourself or that you are a failure : More than half the days Trouble concentrating on things : More than half the days Moving or speaking slowly; restless or fidgety : Nearly every day Thoughts that you would be better off /hurting self : Not at all PHQ-9 Calculated Score : 20 Problems make work, home, or dealing with others : Extremely difficult TERRI BAILEY LPN - 04/25/2011 11:29 HOUSE MOVER Source: [facility] POWERCHART Document Id: [id number] HOUSE MOVER!13 Miscellaneous - Conversion, Historical Provider Ser - 04/25/2011 9:40 AM HOUSE MOVER Adult Forestry Extension Specialist Intake/History Adult Forestry Extension Specialist Intake/History Entered On: 04/25/2011 11:31 HOUSE MOVER Performed On: 04/25/2011 9:40 HOUSE MOVER by TERRI BAILEY LPN Intake Temperature Core : 36.7C(Converted to: 98.1DegF) Peripheral Pulse Rate : 96/min Respiratory Rate : 18/min Heart Rhythm : Regular Systolic Blood Pressure : 92mmHg Diastolic Blood Pressure : 54mmHg NIBP Mean : 67mmHg BP Location : Left upper extremity Blood Pressure Cuff Size : Regular SpO2 : 97% Oxygen Therapy : Room air Height : 168cm(Converted to: 5ft 6inch(es), 66.14inch(es)) Actual Weight : 61.5kg(Converted to: 135lb 9oz) Weight Source : Standing scale Dosing Weight Clinic : 61.50kg Clinic BSA : 1.69 Body Mass Index : 21.79kg/m2 TERRI BAILEY LPN - 04/25/2011 11:29 HOUSE MOVER Subjective Pain Symptoms : No TERRI BAILEY LPN - 04/25/2011 11:29 HOUSE MOVER Dependent Habits Tobacco Use/Currently Using : Yes Tobacco Use/Advised to Quit : Yes Exposure to Tobacco Smoke : Patient smokes Smoking Status : Current every day smoker TERRI BAILEY LPN - 04/25/2011 11:29 HOUSE MOVER Tobacco Use Grid Type : Cigarettes Cigarette Use Packs/Day : 0.5 Last Use : today TERRI BAILEY LPN - 04/25/2011 11:29 HOUSE MOVER Caffeine Use Grid Caffeine Use : Current Type : Coffee, Soft drinks Frequency : Daily TERRI BAILEY LPN - 04/25/2011 11:29 HOUSE MOVER Allergy Allergies (Active) Latex Estimated Onset Date: Unspecified ; Created By: GABRIELLE ALLEN; Reaction Status: Active ; Category: Drug ; Substance: Latex ; Type: Allergy ; Severity: Mild ; Updated By: GABRIELLE ALLEN; Reviewed Date: 04/25/2011 9:33 HOUSE MOVER Naproxen Sodium Estimated Onset Date: Unspecified ; Created By: GABRIELLE ALLEN; Reaction Status: Active ; Category: Drug ; Substance: Naproxen Sodium ; Type: Allergy ; Updated By: GABRIELLE ALLEN;Reviewed Date: 04/25/2011 9:33 HOUSE MOVER Source: [employer] Document Id: [id number] HOUSE MOVER!36 Miscellaneous - Conversion, Historical Provider Ser - 04/25/2011 9:40 AM HOUSE MOVER Health Assessment Health Assessment Entered On: 04/25/2011 11:31 HOUSE MOVER Performed On: 04/25/2011 9:40 HOUSE MOVER by TERRI BAILEY LPN Health Assessment Complete Health Assessment Complete or Modified : Annual Health Assessment Annual Health Assessment Completed : Yes TERRI BAILEY LPN - 04/25/2011 11:29 HOUSE MOVER Nutrition Nutrition Risk Factors by History Adult : None TERRI BAILEY LPN - 04/25/2011 11:29 HOUSE MOVER Functional Current Daily Living Assistance : None TERRI BAILEY LPN - 04/25/2011 11:29 HOUSE MOVER Dependent Habits Tobacco Use/Currently Using : Yes Tobacco Use/Advised to Quit : Yes Exposure to Tobacco Smoke : Patient smokes Smoking Status : Current every day smoker TERRI BAILEY LPN - 04/25/2011 11:29 HOUSE MOVER Tobacco Use Grid Type : Cigarettes Cigarette Use Packs/Day : 0.5 Last Use : today TERRI BAILEY LPN - 04/25/2011 11:29 HOUSE MOVER Caffeine Use Grid Caffeine Use : Current Type : Coffee, Soft drinks Frequency : Daily TERRI BAILEY LPN - 04/25/2011 11:29 HOUSE MOVER Psychosocial Domestic Abuse Concerns : None TERRI BAILEY LPN - 04/25/2011 11:29 HOUSE MOVER Advance Directive Advanced Directives : No TERRI BAILEY LPN - 04/25/2011 11:29 HOUSE MOVER Educ Needs Learning Style Preference Adult Grid Patient : Demonstration, Printed materials, Verbal explanation Family : None TERRI BAILEY LPN - 04/25/2011 11:29 HOUSE MOVER [facility] Document Id: [id number] HOUSE MOVER!31 documented in this encounter Plan of Treatment Not on filedocumented as of this encounter Visit Diagnoses Not on filedocumented in this encounter Additional Health Concerns Assessment Noted Time PHQ-9 Depression Total Score: 20 04/25/2011 10:[address] documented as of this encounter
--- OUTSIDE RECORDS SUMMARY | 2022-02-02 11:05 | XMS_ITS | Encounter Summary ---
:1980 Author Organization [facility] Address [address] [place] [address] Care Team Providers Name Role Phone Unavailable Primary Care Provider Unavailable Encounter Details Date Type Department Care Team Description 09/02/2015 Hospital Encounter HX NO MAPPING Zoë Nick, CONSUMER MARKETING SPECIALIST, C.N.P. [address], [place] [phone] (Wo rk) Social History [...] do you attend mandaen or Never 2019 [employer] services? Do you [...] Sig Dispensed Refills Start Date End Date rizatriptan (MAXALT) 10 mg Take 10 mg by 0 201309/01/2019 tablet mouth. documented as of this encounter Miscellaneous Notes Miscellaneous - Conversion, Historical Provider Ser - 09/02/2015 11:59 PM CDT Coding Summary-Paper Based CODING DATE: 09/16/2015 FINAL [facility] STATUS: * Discharged to Home or Self Care PAYOR: [employer] ADMIT DX: REASON FOR VISIT DX: FINAL DX: PRINCIPAL: Z11.51 Encounter for screening for human papillomavirus (HPV) SECONDARY: PROCEDURES DOCTOR NAME DATE NOTE: The code number assigned matches the documented diagnosis and / or procedure in the patient's chart. However, the narrative phrase printed from the coding software may appear abbreviated, or result in slightly different terminology. Coded By: CAROL BARKER Date Saved: 09/16/2015 09:05 am Source[facility] Document Id: [id number] documented in this encounter Plan of Treatment Not on filedocumented as of this encounter Visit Diagnoses Not on filedocumented in this encounter Additional Health Concerns Assessment Noted Time PHQ-9 Depression Total Score: 2 09/02/2015 2:32 PM CDT documented as of this encounter
--- OUTSIDE RECORDS SUMMARY | 2022-02-02 11:05 | XMS_ITS | Encounter Summary ---
:1980 Author Organization [facility] Address [address] [place] [address] Care Team Providers Name Role Phone Unavailable Primary Care Provider Unavailable Encounter Details Date Type Department Care Team Description 03/23/2011 Hospital Encounter HX [facility] Marky Olmstead M.D. [address] [place], [place] [phone] (Wo rk) Social History [...] do you attend scientology or Never 2019 judaism services? Do you belong to any clubs [...] documented as of this encounter Progress Notes Yasemin Kraus M.D. - 03/23/2011 12:00 AM CST [id number] CHIEF COMPLAINT/ REASON FOR VISIT Follow-up of bacterial vaginosis and dyspareunia. HISTORY OF PRESENT ILLNESS Marlin is a 31-year-old para 0-3-1-3 female who initially presented to see me on 01/23/2011 with four days of suprapubic cramping and low back pain with abnormal discharge. She was found to have bacterial vaginosis on wet prep along with a positive whiff test and basic vaginal pH. This was her third episode of bacterial vaginosis over the last several months. I gave her a prescription for a 7-day course of Flagyl but she was not able to afford this medication for several weeks. She states that she started taking the medication approximately three weeks ago but was not able to finish the entire prescription because she developed the stomach flu. However, at this time she states that the discharge has resolved. She also states that her was given a prescription for Flagyl by Dr. Cardoso and he was not able to finish his antibiotic either because they both were throwing up. The patient had a Mirena IUD placed in October. Since placement of the Mirena IUD she has had irregular vaginal bleeding as well as complaints of pain with intercourse. She describes pain with insertion as well as with deep penetration but is unable to localize these symptoms. She does not believe that this has to do with lubrication and she has not always had pain with intercourse. She states that she has had a flare of her fibromyalgia recently and describes worsening of her dyspareunia associated with this. Finally, she has complaints today of abnormal hair growth. She states that she has hair on her chin and upper lip. She is allergic to any of the topical hair removal creams and has been shaving this. It is quite bothersome to her. Prior to placement of the Mirena IUD and her she had very irregular menses. CURRENT MEDICATIONS 1. Mirena IUD. 2. Flexeril as needed. 3. Gabapentin. 4. Zolpidem. 5. Tylenol. 6. Citalopram. 7. Tramadol. 8. Effexor. 9. Lorazepam. ALLERGIES Latex and naproxen sodium as well as other medications that the patient cannot recall. PAST MEDICAL/SURGICAL HISTORY 1. Juvenile rheumatoid arthritis. 2. Fibromyalgia. 3. Raynaud's phenomenon. 4. Gastroesophageal reflux disease. 5. Anxiety and depression. SYSTEMS REVIEW GENERAL: Positive for fatigue, unintentional weight loss, and weight gain. HEENT: No changes in vision or hearing or nasal congestion. Positive for sore throat. CARDIOVASCULAR: Positive for occasional racing heart. RESPIRATORY: No shortness of breath, cough or wheeze. GASTROINTESTINAL: Positive for nausea and abdominal pain related to recent stomach flu. Positive for constipation. GENITOURINARY: No pain or burning with urination, no irregular vaginal bleeding, heavy periods, painful periods, abnormal vaginal discharge, leaking urine, leaking stool or gas. SKIN: No rashes or skin lesions. BREASTS: No masses or lumps, no discharge from the nipples. NEURO: Positive for difficulty with memory, numbness, tingling and falls as the patient recently had a fall from tripping over an object. PSYCHE: Positive for anxiety, depression, and difficulty sleeping. ENDOCRINE: Positive for heat intolerance, cold intolerance, excessive thirst and hair loss. VITAL SIGNS Height 167.2 cm, weight 57.2 kg, respiratory rate 16, pulse 100, blood pressure 116/64. PHYSICAL EXAM GENERAL: Well-nourished female in no acute distress. HEENT: Vision and hearing grossly intact. ABDOMEN: Soft, nondistended, nontender. GENITALIA: Pelvic exam: External genitalia without lesions or abnormalities, on bimanual examination the bladder and urethra are nontender, there is no cervical motion tenderness, the uterus is only mildly tender, no adnexal masses or tenderness are noted, the patient does have tenderness posteriorly with palpation of the levator ani muscles bilaterally. These muscles do feel a bit tight. Patient states that palpation of these muscles does reproduce the pain that she feels with intercourse. IMPRESSION / REPORT / PLAN 31-year-old para 0-3-1-3 female with a history of recurrent bacterial vaginosis and pelvic pain with dyspareunia. 1. Pelvic pain with dyspareunia: Pelvic ultrasound was performed today. It does show a polycystic appearing right ovary with 16 follicles present. The IUD appears appropriately placed. Otherwise, the pelvic ultrasound appears within normal limits and gives no explanation for the patient's dyspareunia. On pelvic examination, she has tenderness of the pelvic floor musculature with pain when I palpate the levator ani muscles. I did explain to the patient that she does have a significant history of fibromyalgia and is currently having a flare. This could definitely be related to her fibromyalgia. At this point due to her significant discomfort with intercourse I have referred her to pelvic floor physical therapy to assist with this. She does have tightness of her pelvic floor muscles and physical therapy in this area may help with her dyspareunia. I have also recommended that she speak with her primary physician about her recent flare with her fibromyalgia which could also be related to this pelvic pain and dyspareunia. 2. Recurrent bacterial vaginosis: The patient has now had three episodes in the last several months. If she has another episode then I would consider treating her with a prolonged course of metronidazole gel after treating the acute episode. This would be done twice per week. I discussed this with the patient and if she has any recurrence of her symptoms she will return for evaluation for bacterial vaginosis. 3. PCOS: The patient has complaints of abnormal hair growth on her chin and upper lip. She describes very irregular menses and skipping her menstrual period. Based on appearance of her ovaries and these other associated symptoms, she meets NIH and Androgen Excess Society criteria for PCOS. The Mirena IUD should provide endometrial protection from the likely unopposed estrogen she is being exposed to. However, she does desire management for the abnormal hair growth. I will go ahead and start on spironolactone today. She will take 25 milligrams p.o. three times daily. We will taper this dose up to 100 milligrams p.o. b.i.d. It can take up to six months to see an effect from this medication on the abnormal hair growth. Due to the increased risk with PCOS of glucose intolerance and hyperlipidemia, she will return for fasting lipids and a two hour GTT. I will order hormonal studies including a free, bioavailable and total testosterone today and sex hormone binding globulin. TSH and prolactin were also ordered today to evaluate these symptoms. 4. Follow up: The patient will return in one month for follow up of her symptoms. If she has any questions or concerns prior to that time she will call the clinic. Please note that greater than 50% of this 25-minute visit was spent in counseling the patient on PCOS and treatment options as well as the recommended laboratory evaluation. Rasheeda Signed Yasemin Kraus M.D. Obstetrics & Gynecology Electronically Signed By: YASEMIN KRAUS MD On: 03/30/2011 05:33 PM Modified by and Electronically Signed by: YASEMIN KRAUS MD On: 03/30/2011 05:33 PM Source: [facility] MHSDOLDANTEYNTASHIA Document Id: [id number] [facility] Yasemin Kraus M.D. - 03/23/2011 12:00 AM CST [id number] CHIEF COMPLAINT/REASON FOR VISIT Follow up HISTORY OF PRESENT ILLNESS 31-year-old para 0313 female with pelvic pain and dyspareunia who presents for followup. Due to this pelvic ultrasound was recommended since she does have a Mirena IUD in place. PROCEDURE: The transabdominal and transvaginal ultrasonography were performed. Ultrasound shows a uterus measuring 7.0 x 3.7 x 4.9 cm which is slightly anteverted. The endometrial stripe measures 0.66 cm and the IUD is visible within the endometrial cavity. The horizontal T is present extending into the bilateral cornua and the base of the T extends from the fundus to the lower uterine segment. The myometrium is homogeneous and appears within normal limits. The endometrium is also homogeneous. Bilateral ovaries are visualized. The right ovary measures 2.4 x 2.5 x 2.9 cm and contains 16 follicles. The volume of the right ovary is 9.11 ml. The left ovary measures 3.0 x 2.4 x 2.1 cm and contains a 1.2 x 1.2 cm follicular cyst. The volume of the left ovary is 7.92 ml. No free fluid is noted within the pelvis. The cervix appears within normal limits. IMPRESSION/REPORT/PLAN Polycystic appearing ovaries with 16 follicles present with in the right ovary. The IUD appears appropriately located within endometrial cavity. And otherwise this is a normal pelvic ultrasound. KR/clf Signed Yasemin Kraus M.D. Obstetrics & Gynecology Electronically Signed By: YASEMIN KRAUS MD On: 03/30/2011 05:30 PM Modified by and Electronically Signed by: YASEMIN KRAUS MD On: 03/30/2011 05:30 PM Source: [facility] MHSDOLBEYNONRADSYS Document Id: [id number] [facility] documented in this encounter Miscellaneous Notes Miscellsherice - Yasemin Kraus M.D. - 03/29/2011 5:40 PM CST Results Notification Document Contains Addenda Addendum by GABRIELLE ALLEN on 30 March 2011 08:35:34 [facility] added results to letter and mailed letter From: YASEMIN KRAUS MD To: GABRIELLE ALLEN Sent: 03/29/2011 17:40:16 [facility] ! Show up: 03/29/2011 23:40:16 [facility] Subject: Results Notification Actions: Note to Nurse Due Date/Time: 03/29/2011 17:45:00 [facility] Source: [facility] POWERCHART Document Id: [id number] Miscellaneous - Yasemin Kraus M.D. - 03/24/2011 1:56 PM CST Results Notification Document Contains Addenda Addendum by GABRIELLE ALLEN on 30 March 2011 08:35:19 [facility] added results to letter and mailed results From: YASEMIN KRAUS MD To: GABRIELLE ALLEN Sent: 03/24/2011 13:56:11 [facility] ! Show up: 03/24/2011 19:56:11 [facility] Subject: Results Notification Actions: Note to Nurse Due Date/Time: 03/24/2011 14:55:00 [facility] Source: [facility] POWERCHART Document Id: [id number] Electronically signed by Conversion, [facility] Manager Wealth Management [id number] at 09/03/2016 7:46 PM CDT Miscellaneous - Yasemin Kraus M.D. - 03/23/2011 5:11 PM CST Ambulatory [place] [address] Visit Information Name: MARLIN PLUMMER AEL[facility] Current Date: 03/23/2011 17:11:44 Primary Care Provider: STEPHANIE CARDOSO MD Your Medications Here is a list of your medications. It is important to take your medications as directed. Use a pillbox or chart to help remind you to take your medications. Please let your doctor or nurse know if you have problems taking your medications. Medication/Strength Dose Route Frequency Indications/Special Instructions/Comments spironolactone (spironolactone 25 mg oral tablet) 25 mg Oral two times a day pantoprazole (pantoprazole 40 mg oral granule, enteric coated) 40 mg Oral once a day levonorgestrel (Mirena) cyclobenzaprine (Flexeril) zolpidem (zolpidem) gabapentin (gabapentin 100 mg oral capsule) acetaminophen (Tylenol) tramadol (tramadol) citalopram (citalopram) venlafaxine (Effexor) lorazepam (lorazepam) Your Allergies & Intolerances Substance Reaction Symptoms [...] Additional Information Depression: PHQ-9 every 6 months 03/23/2011 Health Assessment every 1 year 03/23/2011 Screening Pap Smear every 3 years Women 21-65 03/23/2011 Checks for signs of cancer of the cervix. Vaccine: Tetanus every 10 years 11/03/2008 11/01/2018 Immunization to help prevent you from getting the serious disease Tetanus (Lockjaw). 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 - 03/23/2011 5:11 PM CST Ambulatory [place] [address] Visit Information Name: MARLIN PLUMMER Current Date: 03/23/2011 17:11:43 Physicians Attending Physician: YASEMIN KRAUS MD Primary Care Provider: STEPHANIE CARDOSO MD, KRISTA ANN has been given the following list of medications: Your Medications It is important to take your medications as directed. Use a pill box or chart to help remind you to take your medications. Please let your doctor or nurse know if you have problems taking your medications. Medication/Strength Dose Route Frequency Indications/Special Instructions/Comments spironolactone (spironolactone 25 mg oral tablet) 25 mg Oral two times a day pantoprazole (pantoprazole 40 mg oral granule, enteric coated) 40 mg Oral once a day levonorgestrel (Mirena) cyclobenzaprine (Flexeril) zolpidem (zolpidem) gabapentin (gabapentin 100 mg oral capsule) acetaminophen (Tylenol) tramadol (tramadol) citalopram (citalopram) venlafaxine (Effexor) lorazepam (lorazepam) Additional Information: Source: [facility] POWERCHART Document Id: [id number] [facility] Miscellaneous - Conversion, Historical Provider Ser - 03/23/2011 2:06 PM [facility] Adult Cyber Security Specialist Intake/History Adult Cyber Security Specialist Intake/History Entered On: 03/23/2011 14:08 [facility] Performed On: 03/23/2011 14:06 [facility] by GABRIELLE ALLEN Intake Chief Complaint : pelvic ultrasound Peripheral Pulse Rate : 100/min Respiratory Rate : 16/min Heart Rhythm : Regular Systolic Blood Pressure : 116mmHg Diastolic Blood Pressure : 64mmHg NIBP Mean : 81mmHg BP Location : Left upper extremity Blood Pressure Cuff Size : Regular Height : 167.2cm(Converted to: 5ft 6inch(es), 65.83inch(es)) Actual Weight : 57.2kg(Converted to: 126lb 2oz) Dosing Weight Clinic : 57.20kg Clinic BSA : 1.63 Body Mass Index : 20.46kg/m2 GABRIELLE ALLEN - 03/23/2011 14:06 [facility] Subjective Pain Symptoms : No GABRIELLE ALLEN - 03/23/2011 14:06 [facility] Dependent Habits Tobacco Use/Currently Using : Yes Tobacco Use/Advised to Quit : Yes Exposure to Tobacco Smoke : Patient smokes Smoking Status : Current every day smoker GABRIELLE ALLEN - 03/23/2011 14:06 [facility] Tobacco Use Grid Type : Cigarettes Cigarette Use Packs/Day : 0.5 Last Use : today GABRIELLE ALLEN - 03/23/2011 14:06 [facility] Caffeine Use Grid Caffeine Use : Current Type : Coffee, Soft drinks Frequency : Daily GABRIELLE ALLEN - 03/23/2011 14:06 [facility] Allergy Allergies (Active) Latex Estimated Onset Date: Unspecified ; Created By: GABRIELLE ALLEN; Reaction Status: Active ; Category: Drug ; Substance: Latex ; Type: Allergy ; Severity: Mild ; Updated By: GABRIELLE ALLEN; Reviewed Date: 01/23/2011 15:13 CDT Naproxen Sodium Estimated Onset Date: Unspecified ; Created By: GABRIELLE ALLEN; Reaction Status: Active ; Category: Drug ; Substance: Naproxen Sodium ; Type: Allergy ; Updated By: GABRIELLE ALLEN;Reviewed Date: 01/23/2011 15:13 CDT Source: [facility] OptiantCHART Document Id: [id number] [facility]!33 documented in this encounter Plan of Treatment Not on filedocumented as of this encounter Visit Diagnoses Not on filedocumented in this encounter Additional Health Concerns Assessment Noted Time PHQ-9 Depression Total Score: 4 02/09/2010 4:47 PM [facility] documented as of this encounter
--- OUTSIDE RECORDS SUMMARY | 2022-02-02 11:05 | XMS_ITS | Encounter Summary ---
:1980 Author Organization [facility] Address [address] [place] [address] Care Team Providers Name Role Phone Unavailable Primary Care Provider Unavailable Encounter Details Date Type Department Care Team Description 08/07/2012 Hospital Encounter HX NO MAPPING Mukesh Solares M.D. [address] [place], [place] [phone] (Wo rk) Social History [...] do you attend restorationism or Never 2019 episcopal services? Do you belong to any clubs [...]
--- OUTSIDE RECORDS SUMMARY | 2022-02-02 11:05 | XMS_ITS | Encounter Summary ---
:1980 Author Organization [facility] Address [address] [place] [address] Care Team Providers Name Role Phone Unavailable Primary Care Provider Unavailable Encounter Details Date Type Department Care Team Description 09/02/2015 Hospital Encounter HX [facility] Meghan Astudillo, HR DIRECTOR, C.N.P. [address] [place] [address] (Wo rk) Social History Tobacco [...] do you attend sabianist or Never 2019 temple services? Do you [...] Sign Reading Time Taken Comments Blood Pressure 124/74 09/02/2015 2:05 PM CDT Pulse 88 09/02/2015 2:05 PM CDT Temperature - - Respiratory Rate 16 09/02/2015 2:05 PM CDT Oxygen Saturation - - Inhaled Oxygen Concentration - - Weight 77.8 kg (171 lb 8.3 oz) 09/02/2015 2:05 PM CDT Height 165 cm (5' 4.96) 09/02/2015 2:05 PM CDT Body Mass Index 28.58 09/02/2015 2:05 PM CDT documented in this encounter Medications at Time of Discharge Medication Sig Dispensed Refills Start Date End Date rizatriptan (MAXALT) 10 mg Take 10 mg by 0 201309/01/2019 tablet mouth. documented as of this encounter Progress Notes Philippe Astudillo, TIM, C.N.P. - 09/02/2015 2:32 PM CDT Clinic Full Note CHIEF COMPLAINT/REASON FOR VISIT Has foul vaginal smell and irritation. Has history vaginal bactera. Started about 3 days ago. Seemsto come on after sexual intercourse. Mirena fell out about 3 weeks ago. HISTORY OF PRESENT ILLNESS Marlin states she has frequent episodes of bacterial vaginosis. She noticed an odor a few days ago.No discharge. She is due for pap smear. She has had a Mirena IUD for over 5 years. About 3 weeks agothe Mirena fell out. She would like to have it replaced. Will schedule Gynecology Consult. MEDICATIONS Lamictal 200 mg, one daily lorazepam 1 mg, one every 6 hours as needed for anxiety Lyrica 300 mg, 1 tid ALLERGIES Feldene (Rash) Latex morphine (nausea, vomiting) Naproxen Sodium PAST MEDICAL HISTORY Chronic Abuse Tobacco Smoking NOS Depression with Anxiety* Esophageal reflux (GERD) Fibromyalgia Raynaud's phenomenon Historical No historical problems PROCEDURES/SURGICAL HISTORY Pap smear (08/15/2010), Ankle fusion (2000). SOCIAL HISTORY Date Time: 09/02/2015 14:05 Tobacco: Smoking Status: Current every day smoker Exposure: Patient smokes Alcohol: Use: Yes Recreational Drugs: Use: None Type: No Results Found FAMILY HISTORY Mother:Positive: [place] - Breast cancer Father:Positive: Thyroid cancer Sister:Positive: Healthy adult HEALTH MAINTENANCE Up to date. SYSTEMS REVIEW Positive for that mentioned in the History of Present Illness and Past Medical History. All other systems were reviewed and were negative. VITAL SIGNS T: 36.9 ??C (Core) HR: 88 RR: 16 BP: 124 / 74 HT: 165 cm WT: 77.8 kg BMI: 28.58 PHYSICAL EXAMINATION GENERAL: In general, the patient is a pleasant female who appears her stated age. SKIN: Without lesion. HEART: Regular rate and rhythm without murmur. LUNGS: Clear to auscultation, good inspiratory effort. ABDOMEN: Soft, nontender, no palpable mass, no hepatosplenomegaly. GENITALIA: Bartholin, urethra, vagina and cervix are without lesion. Wet Prep obtained. ThinPrep Pap smear done with spatula and cytobrush. Bimanual examination reveals uterus is midline, mobile, nontender. No adnexal masses. LAB RESULTS Wet Prep: Positive for clue cells. Pap smear is pending. IMPRESSION/REPORT/PLAN Encounter for screening for malignant neoplasm of cervix I will mail pap smear result. Ordered: OV Est Pt Level 4 - 33342 - 25 min Pathology - UTILIZATION MANAGEMENT UM NURSE Cytology Management Contraceptive Order placed to schedule appointment with Gynecology to replace Mirena IUD. Ordered: OV Est Pt Level 4 - 40557 - 25 min Vaginosis Bacterial metroNIDAZOLE, 0.5 gm = 1 tab(s), PO, q12hr, do not drink alcohol may take with food to minimize abdominal discomfort, x 7 day(s), # 14 tab(s), 0 Refill(s Ordered: OV Est Pt Level 4 - 08112 - 25 min Orders: metroNIDAZOLE, 0.5 gm = 1 tab(s), PO, q12hr, do not drink alcohol may take with food to minimize abdominal discomfort, x 7 day(s), # 14 tab(s), 0 Refill(s), Acute, Pharmacy: [facility], [place] Consult to COMMUNICATIONS TOWER TECHNICIAN Electronically Signed By: PHILIPPE ASTUDILLO APRN, CNP On: 09/02/2015 03:43 PM Source: [facility] POWERCHART Document Id: [id number] documented in this encounter Nursing Notes Philippe Astudillo APRN, C.N.P. - 09/02/2015 2:21 PM CDT Ambulatory Patient Education The following Patient Education Materials have been given to the patient: Patient Education Materials: Curator Of Collections The Range of Pap Test Results Curator Of Collections The Range of Pap Test Results When your Pap test is sent to the lab, the lab studies your cell samples and reports any abnormal cell changes. Your health care provider can discuss these changes with you. In some cases, an abnormal Pap test is due to an infection. More serious cell changes range from dysplasia to cancer. Talk to your health care provider about your Pap test. Normal Results Cervical cells, even normal ones, are always changing. As they mature, normal squamous cells move from deeper layers within the cervix. Over time, these cells flatten and cover the surface of the cervix. Within the cervical canal, the cells are different. These glandular cells are taller and not as flat as the cells on the surface of the cervix. When a Pap test sample shows healthy cells of both types, the results are negative. Keep having Pap tests as often as directed. Abnormal Results A positive Pap test result means some cells in the sample showed abnormal changes. These results aregrouped by the type of cell change and the location, or extent, of the changes. Depending on the results, you may need further testing. ?? Inflammation: Noncancerous changes are present. They may be due to normal cell repair. Or, they may be caused by an infection, such as HPV or yeast. Further testing may be needed. (Also called reactive cellular changes.) ?? Atypical squamous cells: Test results are unclear. Cells on the surface of the cervix show changes, but their significance is not yet known. Testing for HPV and other sexually transmitted infections(STIs) may be needed. Treatment may be required. (Reported as ASC-US or ASC-H.) ?? Atypical glandular cells: Cells lining the cervical canal show abnormal changes. Further testing is likely. You may also have treatment to destroy or remove problem cells. (Reported as AGC.) ?? Mild dysplasia: Cells show distinct changes. More testing or HPV typing may be done. You may alsohave treatment to destroy or remove problem cells. (Reported as low-grade RAHEEM or ASHLYN 1.) ?? Moderate to severe dysplasia: Cells show precancerous changes. Or, noninvasive cancer (carcinoma in situ) may be present. Treatment to destroy or remove problem cells is likely. (Reported as high-grade RAHEEM or ASHLYN 2 or ASHLYN 3.) ?? Cancer: Different types of cancer may be detected by your Pap test. More tests to assess the cancers extent are likely. The type of treatment will depend on the test results and other factors, such as age and health history. (Reported as squamous cell carcinoma, endocervical adenocarcinoma in situ,or adenocarcinoma.) ?? [id number] [facility], [address] [place] [address], [place] [id number]. All rights reserved. This information is not intended as a substitute for professional medical care. Always follow your healthcare professional's instructions. This document has images extracted. Please consider using [employer] for all your patient education needs. Source: [facility] POWERCHART Document Id: [id number] documented in this encounter Miscellaneous Notes Telephone Encounter - Conversion, Historical Provider Ser - 04/04/2016 1:59 PM CST *Phone Message Document Contains Addenda Addendum by PHILIPPE ASTUDILLO APRN, CNP on April 04, 2016 14:40:26 MANAGER MARITIME From: PHILIPPE ASTUDILLO APRN TOW BOAT CAPTAIN To: NIYA Astudillo Nurse; Sent: 04/04/2016 14:40:26 MANAGER MARITIME Subject: RE: *Phone Message noted, thank you Addendum by ОЛЬГА HAYES LPN on April 04, 2016 14:38:02 MANAGER MARITIME From: ОЛЬГА HAYES LPN (FB Sandoval Nurse) To: PHILIPPE ASTUDILLO APRN TOW BOAT CAPTAIN; Sent: 04/04/2016 14:38:02 MANAGER MARITIME Subject: FW: *Phone Message Addendum by ОЛЬГА HAYES LPN on April 04, 2016 14:37:52 MANAGER MARITIME Spoke with: ( x_ ) Patient ( _ ) Parent ( _ ) Spouse ( _ ) Child ( ) Other: _ Call back telephone number: [phone] Reason for Call: -Boils Chief Complaint: Spoke with Marlin and she stated that she has already spoke to her COMMUNICATIONS TOWER TECHNICIAN who she just had physical with and had brought these bumps up to her. COMMUNICATIONS TOWER TECHNICIAN ordered her antibiotic. She was instructed to do hot packs also. Stated she will make appointment if not better. Patient/Caller response to Education/Information given: ( _ [...] language for Healthcare discussion: _ Was an trauma surgeon used for this call? _ Other ( --_ ) From: HORACIO ESQUIVEL ([facility] Nurse) To: NIYA Astudillo Nurse; Sent: 04/04/2016 13:59:57 MANAGER MARITIME Subject: *Phone Message Caller is: ( x) Patient ( ) Mother ( ) Father ( ) Spouse ( ) Daughter ( ) Son ( ) Pharmacy ( ) Other: Physician: Patient MRN #: Reason for Call: pt called regarding a boil that is painful, would like a call back to discuss. please call back at [phone] declined NL Message: Advice/Action: Source used: ( ) Verbalizes [...] back cell phone number ( ) Source: [facility] POWERCHART Document Id: [id number] Miscellaneous - Rian Lindsey M.D. - 09/17/2015 12:51 PM CDT Results Notification Document Contains Addenda Addendum by AMAYA OLSON LPN on September 17, 2015 13:22:03 CDT Patient informed of results. From: RIAN LINDSEY MD To: NIYA Lindsey Nurse; Sent: 09/17/2015 12:51:23 CDT Show up: 09/17/2015 12:51:00 CDT Subject: Results Notification Actions: Notify patient-refer to General Message, Note to Nurse negative, all good.F/U as discussed with Dr. Astudillo Results: Date Result Type Result Name 09/10/2015 12:21 Document - DOC UTILIZATION MANAGEMENT UM NURSE Cytology. Source: [place] Document Id: [id number] Miscellaneous - Ольга Hayes, L.P.N. - 09/02/2015 2:32 PM CDT PHQ-9 PHQ-9 Entered On: 09/02/2015 14:32 CDT Performed On: 09/02/2015 14:32 CDT by ОЛЬГА HAYES LPN PHQ-9 Little interest or pleasure in doing things : Not at all Feeling down, depressed, or hopeless : Not at all Trouble falling or staying asleep, or sleeping too much : Not at all Feeling tired or having little energy : Not at all Poor appetite or overeating : Several days Feeling bad about yourself or that you are a failure : Not at all Trouble concentrating on things : Several days Moving or speaking slowly; restless or fidgety : Not at all Thoughts that you would be better off /hurting self : Not at all PHQ-9 Calculated Score : 2 Problems make work, home, or dealing with others : Not difficult at all ОЛЬГА HAYES LPN - 09/02/2015 14:32 CDT Source: [place] Document Id: [id number] CDT!13 Miscellaneous - Philippe Astudillo APRN, C.N.P. - 09/02/2015 2:21 PM CDT Ambulatory Patient Summary [place] [address] [place] [id number] Visit Information Name: MARLIN PLUMMER [facility] Number: [id number] Current Date: 09/02/2015 14:21:34 Physicians Attending Provider: PHILIPPE ASTUDILLO APRN, CNP [...] Take Indications/Special Instructions/Comments/Notes for Patient Medication Changes/Routing *lamotrigine (Lamictal 200 mg oral tablet) 1 Tablet(s), Oral, once a day lorazepam (lorazepam) 1 mg, Oral, every 6 hours as needed for Anxiety *pregabalin (Lyrica 300 mg oral capsule) 1 cap, Oral, three times a day * You have let us know that you are not taking this medication as listed. Please talk with your primary care provider or the health care provider who prescribed the medication as soon as possible. Stop Taking the Following Medications: levonorgestrel (Mirena) Medication list as of 09-02-15 14:21 Attention: If you have any medications at [...] Signed By: PHILIPPE ASTUDILLO APRN, CNP Signed On:02-SEP-2015 14:21:13 Your Allergies & Intolerances Substance Reaction Symptoms Category Comments morphine nausea, vomiting Drug Feldene Rash Drug Latex Drug Naproxen Sodium Drug Your Problem List Problem Status Onset Comments Juvenile rheumatoid arthritis Active Fibromyalgia Active Raynaud's phenomenon Active Esophageal reflux (GERD) Active Depression with Anxiety* Active Your Upcoming Appointments Date Time Location Provider 09/20/2015 11:15 [facility] InternUli Gaines MD, [place] Attention: Contact your local Clinic if further appointment detail needed. The Range of Pap Test Results When your Pap test is sent to the lab, the lab studies your cell samples and reports any abnormal cell changes. Your health care provider can discuss these changes with you. In some cases, an abnormal Pap test is due to an infection. More serious cell changes range from dysplasia to cancer. Talk to your health care provider about your Pap test. Normal Results Cervical cells, even normal ones, are always changing. As they mature, normal squamous cells move from deeper layers within the cervix. Over time, these cells flatten and cover the surface of the cervix. Within the cervical canal, the cells are different. These glandular cells are taller and not as flat as the cells on the surface of the cervix. When a Pap test sample shows healthy cells of both types, the results are negative. Keep having Pap tests as often as directed. Abnormal Results A positive Pap test result means some cells in the sample showed abnormal changes. These results aregrouped by the type of cell change and the location, or extent, of the changes. Depending on the results, you may need further testing. ?? Inflammation: Noncancerous changes are present. They may be due to normal cell repair. Or, they may be caused by an infection, such as HPV or yeast. Further testing may be needed. (Also called reactive cellular changes.) ?? Atypical squamous cells: Test results are unclear. Cells on the surface of the cervix show changes, but their significance is not yet known. Testing for HPV and other sexually transmitted infections(STIs) may be needed. Treatment may be required. (Reported as ASC-US or ASC-H.) ?? Atypical glandular cells: Cells lining the cervical canal show abnormal changes. Further testing is likely. You may also have treatment to destroy or remove problem cells. (Reported as AGC.) ?? Mild dysplasia: Cells show distinct changes. More testing or HPV typing may be done. You may alsohave treatment to destroy or remove problem cells. (Reported as low-grade RAHEEM or ASHLYN 1.) ?? Moderate to severe dysplasia: Cells show precancerous changes. Or, noninvasive cancer (carcinoma in situ) may be present. Treatment to destroy or remove problem cells is likely. (Reported as high-grade RAHEEM or ASHLYN 2 or ASHLYN 3.) ?? Cancer: Different types of cancer may be detected by your Pap test. More tests to assess the cancers extent are likely. The type of treatment will depend on the test results and other factors, such as age and health history. (Reported as squamous cell carcinoma, endocervical adenocarcinoma in situ,or adenocarcinoma.) ?? [id number] [facility], [address] [place] [address]. All rights reserved. This information is not [...] if you dont have one. Go to [email or web address] and click on Create Your Account. Then, follow the directions to complete the online form. Youll be asked for your [facility] number which you can find at the top of this document. Your Goals/Additional instructions: This document has images extracted. Please consider using [employer] for all your patient education needs. Source: [facility] POWERCHART Document Id: [id number] Miscellaneous - Philippe Astudillo APRN, C.N.P. - 09/02/2015 2:21 PM CDT Ambulatory Discharge Medication List [address] [id number] Visit Information Name: MARLIN PLUMMER [facility] Number: [id number] Visit Date: 09/02/2015 14:21:34 Attending Provider: PHILIPPE ASTUDILLO APRN [facility] Primary Care Provider: HUY GAINES MD MARLIN PLUMMER ALEC has been given the following list of medications: Your Medications It is important to take your medications as directed. Use a pill box or chart to help remind you to take your medications. Please let your doctor or nurse know if you have problems taking your medications. Medication/Strength How to Take Indications/Special Instructions/Comments/Notes for Patient Medication Changes/Routing *lamotrigine (Lamictal 200 mg oral tablet) 1 Tablet(s), Oral, once a day lorazepam (lorazepam) 1 mg, Oral, every 6 hours as needed for Anxiety *pregabalin (Lyrica 300 mg oral capsule) 1 cap, Oral, three times a day * You have let us know that you are not taking this medication as listed. Please talk with your primary care provider or the health care provider who prescribed the medication as soon as possible. Stop Taking the Following Medications: levonorgestrel (Mirena) Medication list as of 09-02-15 14:21 Attention: If you have any medications at [...] emergency. Electronically Signed By: PHILIPPE ASTUDILLO APRN TOW BOAT CAPTAIN Signed On:02-SEP-2015 14:21:13 Additional Information: Source: [facility] POWERCHART Document Id: [id number] Miscellaneous - Ольга Hayes L.PSarahN. - 09/02/2015 2:05 PM CDT Adult Agent Based Modeler Intake/History Adult Agent Based Modeler Intake/History Entered On: 09/02/2015 14:09 CDT Performed On: 09/02/2015 14:05 CDT by ОЛЬГА HAYES LPN Intake Chief Complaint : Has foul vaginal smell and irritation. Has history vaginal bactera. Started about 3 days ago. Seems to come on after sexual intercourse. Mirena fell out about 3 weeks ago. LMP Date : N/A Temperature Core : 36.9 DegC(Converted to: 98.4 DegF) Peripheral Pulse Rate : 88 /min Respiratory Rate : 16 /min Heart Rhythm : Regular Systolic Blood Pressure : 124 mmHg Diastolic Blood Pressure : 74 mmHg NIBP Mean : 91 mmHg BP Location : Right upper extremity Blood Pressure Cuff Size : Regular Height : 165 cm(Converted to: 5 ft 5 inch(es), 65 inch(es)) Actual Weight : 77.8 kg(Converted to: 171 lb 8 oz) Weight Source : Standing scale Dosing Weight Clinic : 77.8 kg Clinic BSA : 1.89 Body Mass Index : 28.58 kg/m2 ОЛЬГА HAYES LPN - 09/02/2015 14:05 CDT General Info Information Given By : Patient Preferred Communication Mode : Verbal Languages : [place] Is Patient Female and 13-50 no hysterectomy : Yes Status : Patient denies Are you ? : No ОЛЬГА HAYES LPN - 09/02/2015 14:05 CDT Subjective Pain Symptoms : No ОЛЬГА HAYES LPN - 09/02/2015 14:05 CDT Dependent Habits Exposure to Tobacco Smoke : Patient smokes Smoking Status : Current every day smoker Tobacco 2A : Yes Tobacco Use/Currently Using : Yes Tobacco Use/Last 30 Days : Yes Tobacco Use/Last 12 months : Yes Type : Cigarettes: 20-30 per day Tobacco Use/Advised to Quit : Yes ОЛЬГА HAYES LPN - 09/02/2015 14:05 CDT Caffeine Use Grid Caffeine Use : Current Type : Coffee, Soft drinks Frequency : Daily ОЛЬГА HAYES LPN - 09/02/2015 14:05 CDT Recreational Drug Use Grid Drug Use : None ОЛЬГА HAYES LPN - 09/02/2015 14:05 CDT Source: [facility] POWERCHART Document Id: [id number] CDT!45 Miscellaneous - Ольга Hayes L.P.NSarah - 09/02/2015 2:03 PM CDT Health Assessment Health Assessment Entered On: 09/02/2015 14:05 CDT Performed On: 09/02/2015 14:03 CDT by ОЛЬГА HAYES RONNIE Health Assessment Complete Health Assessment Complete or Modified : Annual Health Assessment Annual Health Assessment Completed : Yes ОЛЬГА HAYES RONNIE - 09/02/2015 14:03 CDT Nutrition Nutrition Risk Factors by History Adult : None ОЛЬГА HAYES RONNIE - 09/02/2015 14:03 CDT Functional Current Daily Living Assistance : None ОЛЬГА HAYES RONNIE - 09/02/2015 14:03 CDT Dependent Habits Exposure to Tobacco Smoke : Patient smokes Smoking Status : Current every day smoker Tobacco 2A : Yes Tobacco Use/Currently Using : Yes Tobacco Use/Last 30 Days : Yes Tobacco Use/Last 12 months : Yes Type : Cigarettes: 20-30 per day Tobacco Use/Advised to Quit : Yes ОЛЬГА HAYES RONNIE - 09/02/2015 14:03 CDT Caffeine Use Grid Caffeine Use : Current Type : Coffee, Soft drinks Frequency : Daily ОЛЬГА HAYES RONNIE - 09/02/2015 14:03 CDT Alcohol Use : Yes ОЛЬГА HAYES RONNIE - 09/02/2015 14:03 CDT Recreational Drug Use Grid Drug Use : None ОЛЬГА HAYES CARDIOVASCULAR SPECIALIST - 09/02/2015 14:03 CDT AUDIT Tool How Often Do You Have A Drink : 2 to 3 times a week How Many Drinks in a Day When Drinking : 1 or 2 Six or More Drinks On One Occassion : Never Audit Phase 1 Score : 3 ОЛЬГА HAYES RONNIE - 09/02/2015 14:03 CDT Psychosocial Domestic Abuse Concerns : None Behavioral Health Screen/Safety Assmt : No Mandaen Preference : Quaker ОЛЬГА HAYES RONNIE - 09/02/2015 14:03 CDT Advance Directive Advanced Directives : No Advance Directive Additional Information : No ОЛЬГА HAYES RONNIE - 09/02/2015 14:03 CDT Educ Needs Learning Style Preference Adult Grid Patient : Printed materials, Verbal explanation Family : Verbal explanation, Printed materials ОЛГЬА HAYES RONNIE - 09/02/2015 14:03 CDT [facility] Document Id: [id number] CDT!42 documented in this encounter Plan of Treatment Not on filedocumented as of this encounter Procedures Procedure Name Priority Date/Time Associated Diagnosis Comme nts VAGINITIS BATTERY, Routine 09/02/2015 3:24 PM Res ults for this DNA (GENITAL) CDT procedure are in the results section. PATHOLOGY UTILIZATION MANAGEMENT UM NURSE Routine 09/02/2015 12:00 AM Results for this CYTOLOGY CDT procedure are i n the results section. documented in this encounter Results (ABNORMAL) VAGINITIS BATTERY, DNA (GENITAL) (09/02/2015 3:24 PM CDT) Component Value Ref Test Analysis Performed At [facility] gist Range Method Time Signature HXVaginitis (POSITIVE) POWERCHART Battery, DNA (Genital) HXFinal Trichomonas POWERCHART vaginalis DNA negative HXFinal Gardnerella POWERCHART vaginalis DNA positive HXFinal Isi species POWERCHART DNA negative HXFinal Reference: POWERCHART Negative Specimen (Source) Anatomical Collection Method Collection Time Re ceived Time Location / / Volume Laterality Vagina 09/02/2015 3:24 PM CDT Philippe Astudillo APRN, C.N.P. LAB HISTORICAL ORDERS Performing Organization Address City/State/ZIP Code Phon e Number POWERCHART Pathology UTILIZATION MANAGEMENT UM NURSE Cytology (09/02/2015 12:00 AM CDT) Specimen (Source) Anatomical Location Collection Method / Collectio n Time Received Time / Laterality Volume 09/02/2015 Narrative [facility] LAB - 09/10/2015 12:21 PM CDT [facility] in [address] [place], [place] ??[address] Patient Name: MARLIN PLUMMER ALEC Patient ID #: [id number] Collected: 09/02/2015 Address: City/State/Zip: [address] [place] [id number] Received: Reported: 09/03/2015 09/10/2015 Soc. Sec. #: ?/Age/Sex 1980 (Age: 35) ??F Physician(s): ELISABET ASTUDILLO CNP Copy To: ? [facility] ??[id number] [address] [facility], ??[place] ??[address] CYTOPATHOLOGY UTILIZATION MANAGEMENT UM NURSE REPORT FINAL CYTOLOGIC DIAGNOSIS Pap Smear - ThinPrep with HPV: NEGATIVE FOR INTRAEPITHELIAL LESION OR MALIGNANCY REACTIVE/REPARATIVE CHANGES. ENDOCERVICAL CELLS/COMPONENT PRESENT. SATISFACTORY SPECIMEN FOR EVALUATION. ??This specimen required a physician interpretation under CLIA 1987 ?? Electronically Signed Out By [facility]/09/10/2015 FERMÍN KHAN M.D. ZAIDA CASTILLO(ASCP) The Pap test is a screening procedure an d, as such, is subject to both false positive and false negative results as evidenced by published data. ??It is not a diagnostic test and results should be inter preted in the context of the patient's h istory and other clinical findings. ??Obtaining per iodic Pap tests may help to minimize the consequences of any false negatives that may occur. Procedures/Addenda: HUMAN PAPILLOMA VIRUS ADDENDUM ? Dontae e Ordered: ? 09/06/2015 ? Status: ??Signed Out Date Complete: ? 09/10/2015 ? By: ??CASSANDRA CASTILLO(ASCP) Date Reported: ? 09/10/2015 INTERPRETATION: Test: Aptima High Risk HPV Result: NEGATIVE FOR HIGH RISK HPV Specimen Description: ThinPrep? ?? Pap Test PreservCyt Solution HPV by Group Tester-Mediated Amplificat ion (TMA) for E6/E7 viral messenger RNA (mRNA) is an in-vitro diagnostic test for the detection of 14 high-risk Human Papillomavirus (HPV) types (16, 18, 31, 33, 35, 39, 45, 51, 52, 56, 58, 59, 66, and 68) in cervical specimen. Intended for co-testi ng or reflex testing of ASC-US Pap smears. Interpretation for patients with ASC-US cytology: Low likelihood of underlying high-grade CIN2-3 or cancer; results are not intended to prevent women from proceeding to colposcopy. Interpretation for patients with NILM cy tology who are over 30 years old: Very low likelihood of underlying high-grade ASHLYN or cancer; results do not preclude future HPV infection or cytologic abnormalities with underlying CIN2-3 or cancer. SPECIMEN(S) RECEIVED: Pap Smear - ThinPrep with HPV CLINICAL HISTORY: Other Clinical Conditions: HPV TYPING REQUESTED Philippe Astudillo APRN, C.N.P. LAB PAP COPATH ORDERABLES Performing Organization Address City/State/ZIP Code Phon e Number L[facility] LAB documented in this encounter Visit Diagnoses Not on filedocumented in this encounter Additional Health Concerns Assessment Noted Time PHQ-9 Depression Total Score: 2 09/02/2015 2:32 PM CDT documented as of this encounter
--- OUTSIDE RECORDS SUMMARY | 2022-02-02 11:05 | XMS_ITS | Encounter Summary ---
:1980 Author Organization [facility] Address [address] [place] [address] Care Team Providers Name Role Phone Unavailable Primary Care Provider Unavailable Encounter Details Date Type Department Care Team Description 02/10/2011 Hospital Encounter HX [facility] Raymond Gould Jr., M.D. [address] [place], [place] [phone] (Wo rk) Social History [...] or relatives? How often do you attend jehovah's witness or Never 2019 yazidi services? Do you belong to any clubs or No 01/29/2019 organizations such as jehovah's witness groups, unions, fraternal or athletic groups, or [...] documented as of this encounter Progress Notes Raymond Henderson Jr., M.D. - 02/10/2011 12:00 AM CST [id number] CHIEF COMPLAINT/REASON FOR VISIT Patient in for vaginal trauma. HISTORY OF PRESENT ILLNESS 31-year-old who landed on a container today. Left labial area had some bleeding and then began having some discomfort. She has had minimal bleeding now but feels like it is swollen. CURRENT MEDICATIONS Please see EMR updated with patient. VITAL SIGNS WEIGHT 58.7 kg PULSE 72 BLOOD PRESSURE 120/60. PHYSICAL EXAM ABDOMEN: Lower abdomen soft, nontender. GENITALIA: Upper vagina is normal. Left area in the area of the Bartholin's gland there is a swelling. I am not sure whether this is a gland or a little bit of a hematoma. We have attempted to probe this, got some fluid out. Patient felt slightly better, is having minimal bleeding with this at the time. Does not appear to be tracking anywhere and does not appear to be significant trauma. I believe this will heal on its own. IMPRESSION/REPORT/PLAN Patient with slight vaginal trauma and a small hematoma. Advised on ice to this area today and then local heat if needed. Will follow up if not improved. I have given her my cell phone number to call if she does not get better. [facility]/mgd Signed Raymond Henderson M.D. Obstetrics & Gynecology Electronically Signed By: RAYMOND HENDERSON MD On: 02/13/2011 01:07 PM Source: [facility] MHSDOLBEYNONRADSYS Document Id: [id number] ERCIAL GLAZIER documented in this encounter Miscellaneous Notes Miscellaneous - Belkis Mejia, RSarahN. - 02/10/2011 2:12 PM CST Adult Registered Nurse Cardiac Intake/History Adult Registered Nurse Cardiac Intake/History Entered On: 02/10/2011 14:14 COMMERCIAL GLAZIER Performed On: 02/10/2011 14:12 COMMERCIAL GLAZIER by BELKIS DOLAN Intake Peripheral Pulse Rate : 72/min Systolic Blood Pressure : 120mmHg Diastolic Blood Pressure : 60mmHg NIBP Mean : 80mmHg BP Location : Right upper extremity Actual Weight : 58.7kg(Converted to: 129lb 7oz) Dosing Weight Clinic : 58.70kg BELKIS DOLAN - 02/10/2011 14:12 COMMERCIAL GLAZIER Subjective Pain Symptoms : No MAGDALENOBELKIS GR Freddie - 02/10/2011 14:12 COMMERCIAL GLAZIER Dependent Habits Tobacco Use/Currently Using : Yes Tobacco Use/Advised to Quit : Yes Exposure to Tobacco Smoke : Patient smokes Smoking Status : Current every day smoker BELKIS DOLAN - 02/10/2011 14:12 COMMERCIAL GLAZIER Tobacco Use Grid Type : Cigarettes Cigarette Use Packs/Day : 0.5 Last Use : today BELKIS DOLAN Freddie - 02/10/2011 14:12 COMMERCIAL GLAZIER Caffeine Use Grid Caffeine Use : Current Type : Coffee, Soft drinks Frequency : Daily MAGDALENOBELKIS GR Freddie - 02/10/2011 14:12 COMMERCIAL GLAZIER Allergy Allergies (Active) Latex Estimated Onset Date: [...] GABRIELLE ALLEN;Reviewed Date: 01/23/2011 15:13 CDT Source: [employer] Document Id: [id number] COMMERCIAL GLAZIER!26 ERCIAL GLAZIER documented in this encounter Plan of Treatment Not on filedocumented as of this encounter Visit Diagnoses Not on filedocumented in this encounter Additional Health Concerns Assessment Noted Time PHQ-9 Depression Total Score: 4 02/09/2010 4:47 PM COMMERCIAL GLAZIER documented as of this encounter
--- OUTSIDE RECORDS SUMMARY | 2022-02-02 11:05 | XMS_ITS | Encounter Summary ---
:1980 Author Organization [facility] Address [address] [place] [address] Care Team Providers Name Role Phone Unavailable Primary Care Provider Unavailable Encounter Details Date Type Department Care Team Description 02/03/2010 - Hospital Encounter HX [facility]ST GENER[facility] 3 WEST 02/09/2010 Social History Tobacco Use Types Packs/Day Years [...] do you attend islam or Never 2019 druze services? Do you [...] Procedure Name Priority Date/Time Associated Comments Diagnosis DX CERVICAL SPINE Routine 02/05/2010 5:43 PM Resu lts for this 2-3 VIEWS CDT procedure are i n the results section. DX SPINE Routine 02/05/2010 5:36 PM Results f or this CDT procedure are i n the results section. DX HAND 2 VIEWS AND Routine 02/04/2010 7:17 PM Re sults for this WRIST 2 VIEWS CDT procedure are in the results section. DX FOOT ANKLE Routine 02/04/2010 7:17 PM Results for this UNILATERAL 3 VIEWS CDT procedure are in the results section. documented in this encounter Results DX Cervical Spine 2-3 Views (02/05/2010 5:43 PM CDT) Anatomical Region Laterality Modality Cervical Spine N/A Radiographic Imaging Specimen (Source) Anatomical Collection Method Collection Time Re ceived Time Location / / Volume Laterality 02/05/2010 5:43 PM CDT Narrative 02/05/2010 8:33 PM CDT 05-Feb-2010 17:43:00 ??Exam: Sp Cerv*2vw Flex/Ext only Indications: Arthritis, R/O atlantoaxial subluxation. ORIGINAL REPORT - 05-Feb-2010 18:19:00 Sp Cerv*2vw Flex/Ext only: Slight anterolisthesis of C2 on C3 seen on the flexion view but resolved on extension view. No evidence of atlantoaxial subluxation. Electronically signed by: ?? Caity Luu MD [phone] ([id number]) 06-Feb-20 10 18:19 I have reviewed the films/images and agr ee with the above interpretation. Electronically signed by: ?? Venus Farnsworth M.D. ?? [id number] 05-Feb-2010 20:33 Procedure Note Raymond Farnsworth M.D. - 07/01/2017Form atting of this note might be different from the original. 05-Feb-2010 17:43:00 Exam: Sp Cerv*2vw F hamilton/Ext only Indications: Arthritis, R/O atlantoaxial subluxation. ORIGINAL REPORT - 05-Feb-2010 18:19:00 Sp Cerv*2vw Flex/Ext only: Slight anterolisthesis of C2 on C3 seen on the flexion view but resolved on extension view. No evidence of atlantoaxial subluxation. Electronically signed by: Caity Luu MD [phone] ([id number]) 06-Feb-20 10 18:19 I have reviewed the films/images and agr ee with the above interpretation. Electronically signed by: Venus Farnsworth M.D. [id number] 05-Feb-2010 20 :33 Isa Mehta M.D. IMG DIAGNOSTIC IMAGING PROCE DURES DX Spine (02/05/2010 5:36 PM CDT) Anatomical Region Laterality Modality Radiographic Imaging Specimen (Source) Anatomical Collection Method Collection Time Re ceived Time Location / / Volume Laterality 02/05/2010 5:36 PM CDT Narrative 02/05/2010 8:32 PM CDT 05-Feb-2010 17:36:00 ??Exam: Sp*Entire Spine 7vw Indications: Arthritis ORIGINAL REPORT - 05-Feb-2010 18:17:00 Sp*Entire Spine 7vw: Loss of the normal cervical lordosis sec ondary to patient positioning. The entire spine is otherwise negative. Umbilical ring. Stool throughout the colon. Pelvic phleboliths. Electronically signed by: ?? Caity Luu MD [phone] ([id number]) 06-Feb-20 10 18:17 I have reviewed the films/images and agr ee with the above interpretation. Electronically signed by: ?? Venus Farnsworth M.D. ?? [phone] 05-Feb-2010 20:32 Procedure Note Raymond Farnsworth M.D. - 07/01/2017Form atting of this note might be different from the original. 05-Feb-2010 17:36:00 Exam: Sp*Entire Spi ne 7vw Indications: Arthritis ORIGINAL REPORT - 05-Feb-2010 18:17:00 Sp*Entire Spine 7vw: Loss of the normal cervical lordosis sec ondary to patient positioning. The entire spine is otherwise negative. Umbilical ring. Stool throughout the colon. Pelvic phleboliths. Electronically signed by: Caity Luu MD [phone] ([id number]) 06-Feb-20 10 18:17 I have reviewed the films/images and agr ee with the above interpretation. Electronically signed by: Venus Farnsworth M.D. [id number] 05-Feb-2010 20 :32 Isa PADILLA DIAGNOSTIC IMAGING PROCE DURES DX Foot Ankle 3 Views (02/04/2010 7:17 PM CDT) Anatomical Region Laterality Modality Lower Extremity, Foot, Ankle N/A Radiographi c Imaging Specimen (Source) Anatomical Collection Method Collection Time Re ceived Time Location / / Volume Laterality 02/04/2010 7:17 PM CDT Narrative 02/04/2010 7:43 PM CDT 04-Feb-2010 19:17:00 ??Exam: B Foot 3vw ??Ankle 3vw Indications: Rheumatoid Arthritis, Any e vidence of joint destruction from rheumatoid arthritis? ORIGINAL REPORT - 04-Feb-2010 19:43:00 Both Foot 3vw ??Ankle 3vw: Postoperative changes of left tibiotalar fusion with complete bony ankylosis of the joint. Screw tracks from prior fixation. Degenerative changes involving the subtalar and midfoot joints on the left. M ild hypertrophic degenerative changes th roughout the right midfoot. No erosive changes to suggest an inflammatory arthritis. Electronically signed by: ?? Adolfo Kaye MD [id number] 04-Feb-2010 19:43 Procedure Note Brodie Kaye M.D. - 07/01/2017Format ting of this note might be different from the original. 04-Feb-2010 19:17:00 Exam: B Foot 3vw An kle 3vw Indications: Rheumatoid Arthritis, Any e vidence of joint destruction from rheumatoid arthritis? 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 Screw tracks from prior fixation. Degenerative changes involving the subtalar and midfoot joints on the left. Mild hypertrophic degenerative changes throug hout the right midfoot. No erosive changes to suggest an inflammatory arthritis. Electronically signed by: Adolfo Kaye MD [id number] 04-Feb-2010 19:43 Isa Mehta M.D. IMXander DIAGNOSTIC IMAGING PROCE KENYA HOFFMAN Hand 2 Views And Wrist 2 Views (02/04/2010 7:17 PM CDT) Anatomical Region Laterality Modality Radiographic Imaging Specimen (Source) Anatomical Collection Method Collection Time Re ceived Time Location / / Volume Laterality 02/04/2010 7:17 PM CDT Narrative 02/04/2010 7:40 PM CDT 04-Feb-2010 19:17:00 ??Exam: B Hand 2vw & Wrist 2vw Indications: Rheumatoid Arthritis, Any e vidence of joint destruction from rheumatoid arthritis? ORIGINAL REPORT - 04-Feb-2010 19:40:00 Both Hand 2vw & Wrist 2vw: Marked foreshortening of the left ulna w ith advanced degenerative changes and ulnar impingement at the distal radioulnar articulation. Associated degenerative changes of the radioscaphoid and radiolunat e articulations with marked widening of the scapholunate interval and proximal migration of the capitate consistent with SLAC wrist configuration. Degenerative changes throughout the carpometacarpal heidi nts and ST-T articulation of the left sarkar nd. Mild ulna minus variance on the right. No erosive changes within either hand or wrist to suggest an inflammatory arthritis. Electronically signed by: ?? Adolfo Kaye MD [id number] 04-Feb-2010 19:40 Procedure Note Brodie Kaye M.D. - 07/01/2017Format ting of this note might be different from the original. 04-Feb-2010 19:17:00 Exam: B Hand 2vw & Wrist 2vw Indications: Rheumatoid Arthritis, Any e vidence of joint destruction from rheumatoid arthritis? ORIGINAL REPORT - 04-Feb-2010 19:40:00 Both Hand 2vw & Wrist 2vw: Marked foreshortening of the left ulna w ith advanced degenerative changes and ulnar impingement at the distal radioulnar articulation. Associated degenerative changes of the radioscaphoid and radiolunate articulations with marked widening of the scapholunate interval and proximal migration of the capitate consistent with SLAC wrist configuration. Degenerative changes throughout the carpometacarpal joints and ST-T articulation of the left hand. Mild ulna minus variance on t he right. No erosive changes within either hand or wrist to suggest an inflammatory arthritis. Electronically signed by: Adolfo Kaye MD [id number] 04-Feb-2010 19:40 Isa PADILLA DIAGNOSTIC IMAGING PROCE DURES documented in this encounter Visit Diagnoses Not on filedocumented in this encounter
--- OUTSIDE RECORDS SUMMARY | 2022-02-02 11:05 | XMS_ITS | Encounter Summary ---
:1980 Author Organization [facility] Address [address] [place] [address] Care Team Providers Name Role Phone Unavailable Primary Care Provider Unavailable Encounter Details Date Type Department Care Team Description 12/15/2012 Hospital Encounter HX NO MAPPING Paty Reddy M.B.B.S. [address] [place], [place] [address] (Wo rk) Social History Tobacco Use Types [...] do you attend confucianism or Never 2019 gnosticism services? Do you [...] Assessment Noted Time PHQ-9 Depression Total Score: 11 12/05/2012 11:27 AM C DT documented as of this encounter
--- OUTSIDE RECORDS SUMMARY | 2022-02-02 11:05 | XMS_ITS | Encounter Summary ---
:1980 Author Organization [facility] Address [address] [place] [address] Care Team Providers Name Role Phone Unavailable Primary Care Provider Unavailable Encounter Details Date Type Department Care Team Description 12/15/2012 Hospital Encounter HX NO MAPPING Mike Phoenix III, M.D. (Skip), M.P.H. [address] [place], [place] [address] (Wo rk) Social History [...] do you attend worship or Never 2019 baptism services? Do you belong to any clubs [...]
--- OUTSIDE RECORDS SUMMARY | 2022-02-02 11:05 | XMS_ITS | Encounter Summary ---
:1980 Author Organization [facility] Address [address] [place] [address] Care Team Providers Name Role Phone Unavailable Primary Care Provider Unavailable Encounter Details Date Type Department Care Team Description 07/24/2012 Hospital Encounter HX [facility] AUDIOLOGY Xander Barrera Au.D. Social History Tobacco Use Types Packs/Day Years [...] do you attend baptism or Never 2019 restorationist services? Do you [...] AM CDT documented as of this encounter Consult Notes Amrita Barrera Au.D. - 07/24/2012 11:04 AM CDT [id number] CHIEF COMPLAINT/REASON FOR VISIT 32-year-old female seen today for audiological evaluation requested by Jacklyn Swartz PA-C. HISTORY OF PRESENT ILLNESS Marlin reports experiencing a plugged sensation in her left ear for the past month. There is a question of fluid behind the left ear drum. PHYSICAL EXAMINATION ENT: An otoscopic examination revealed bilaterally clear ear canals prior to testing. DIAGNOSTICS: Audiometry today was consistent with hearing within normal limits for a broad range of frequencies (250-8,000 Hz) in both ears. Word recognition ability and quiet remained intact, symmetrical and good. Tympanometry was consistent with normal middle ear pressure, equivalent volume and static admittance in both ears. IMPRESSION/REPORT/PLAN Eustachian tube dysfunction. PLAN: The patient is following up with Jacklyn Swartz. Further otologic management as recommended. Marlin was encouraged to contact the clinic should she note any change in her auditory symptoms. Resultsand recommendations were discussed with the patient. Andrew Ryan/koko Electronically Signed By: AMRITA BARRERA On: 07/25/2012 11:38 AM Source: [facility] MHSDOLBEYNONLEONARDSYS Document Id: [id number] documented in this encounter Plan of Treatment Not on filedocumented as of this encounter Visit Diagnoses Not on filedocumented in this encounter Additional Health Concerns Assessment Noted Time PHQ-9 Depression Total Score: 20 04/25/2011 10:[address] documented as of this encounter
--- OUTSIDE RECORDS SUMMARY | 2022-02-02 11:05 | XMS_ITS | Encounter Summary ---
:1980 Author Organization [facility] Address [address] [place] [address] Care Team Providers Name Role Phone Unavailable Primary Care Provider Unavailable Encounter Details Date Type Department Care Team Description 04/04/2011 Hospital Encounter HX [facility] Shamika Kraus M.D. [address] [place], [place] [phone] (Wo rk) Social History [...] do you attend voodoo or Never 2019 jewish services? Do you belong to any clubs [...] of this encounter Miscellaneous Notes Miscellaneous - Shamika Kraus M.D. - 04/04/2011 5:25 PM CST Results Notification Document Contains Addenda Addendum by JU ALLEN on 05 April 2011 09:14:39 COOK FRUIT added to postcard From: SHAMIKA KRAUS MD To: JU ALLEN Sent: 04/04/2011 17:25:41 COOK FRUIT ! Show up: 04/04/2011 23:25:41 RUST Subject: Results Notification Actions: Note to Nurse Source: [facility] POWERCHART Document Id: [id number] Electronically signed by Conversion, [facility] Chopper Feeder [id number] at 09/02/2016 1:23 PM CDT documented in this encounter Plan of Treatment Not on filedocumented as of this encounter Procedures Procedure Name Priority Date/Time Associated Diagnosis Comme nts GLUCOSE POST Routine 04/04/2011 11:45 AM Results for this PRANDIAL 2HR, S COOK FRUIT procedure ar e in the results section. LIPID PANEL, S Routine 04/04/2011 9:42 AM Results for this COOK FRUIT procedure are i n the results section. GLUCOSE, FASTING, Routine 04/04/2011 9:42 AM Resu lts for this S/P COOK FRUIT procedure are i n the results section. documented in this encounter Results (ABNORMAL) Glucose Post Prandial 2HR (04/04/2011 11:45 AM COOK FRUIT) athologist Signature HXGluc 2hr 44 (C) 70 - 139 POWERCHART Glucola MGDL Comment: Notified Ju 04/04/2011 13: 40 Specimen (Source) Anatomical Collection Method Collection Time Re ceived Time Location / / Volume Laterality Blood 04/04/2011 11:45 AM COOK FRUIT Shamika Kraus M.D. LAB BLOOD ADD-ON Performing Organization Address City/State/ZIP Code Phon e Number POWERCHART (ABNORMAL) Lipid Panel (04/04/2011 9:42 AM COOK FRUIT) [facility] gist Method Time Signature Cholesterol, 154 0 - 200 POWERCHART Total MGDL HX HDL 73.0 (H) 40.0 - POWERCHART 60.0 MGDL Triglycerides 87 0 - 150 POWERCHART MGDL Calculated LDL 64 0 - 100 POWERCHART MGDL Specimen (Source) Anatomical Collection Method Collection Time Re ceived Time Location / / Volume Laterality Blood 04/04/2011 9:42 AM COOK FRUIT Shamika Kraus M.D. LAB BLOOD ADD-ON Performing Organization Address City/State/ZIP Code Phon e Number POWERCHART Glucose, Fasting (04/04/2011 9:42 AM COOK FRUIT) P athologist Signature Glucose, 81 70 - 99 POWERCHART Fasting, S MGDL Specimen (Source) Anatomical Collection Method Collection Time Re ceived Time Location / / Volume Laterality Blood 04/04/2011 9:42 AM COOK FRUIT Shamika Kraus M.D. LAB BLOOD NON ADD-ON Performing Organization Address City/State/ZIP Code Phon e Number POWERCHART documented in this encounter Visit Diagnoses Not on filedocumented in this encounter Additional Health Concerns Assessment Noted Time PHQ-9 Depression Total Score: 4 02/09/2010 4:47 PM COOK FRUIT documented as of this encounter
--- OUTSIDE RECORDS SUMMARY | 2022-02-02 11:05 | XMS_ITS | Encounter Summary ---
:1980 Author Organization [facility] Address [address] [place] [address] Care Team Providers Name Role Phone Unavailable Primary Care Provider Unavailable Encounter Details Date Type Department Care Team Description 12/10/2015 Hospital Encounter HX [facility] Gayatri Espinal M.D. [address] [place] [phone] (Wo rk) Social History Tobacco [...] or relatives? How often do you attend religious or Never 2019 adventism services? Do you belong to any clubs or No 01/29/2019 organizations such as religious groups, unions, fraternal or athletic groups, or [...] - - Height 165 cm (5' 4.96) 12/10/2015 9:24 AM CDT Body Mass Index - - [...] Encounter - Conversion, Historical Provider Ser - 12/15/2015 2:03 PM CDT *Phone Message Document Contains Addenda Addendum by DARIEL PELAEZ CMA on December 15, 2015 14:19:38 CDT printed and mailed off From: QUINTEN CUELLAR ( [employer] [facility] [employer] Import/Export Analyst) To: [facility] Nurse; Sent: 12/15/2015 14:03:40 CDT Subject: *Phone Message Caller is: ( x ) Patient ( ) Mother ( ) Father ( ) Spouse ( ) Daughter ( ) Son ( ) Pharmacy ( ) Other: Physician: Patient MRN #: Reason for Call: Message: Patient asked if she could please get a copy of the labs done last week mailed to her at : [address] [place] [id number] Advice/Action: Source used: ( ) Verbalizes understanding [...] back cell phone number ( ) Source: [facility] POWERCHART Document Id: [id number] documented in this encounter Plan of Treatment Not on filedocumented as of this encounter Procedures Procedure Name Priority Date/Time Associated Diagnosis Comme nts LIPID PANEL, S Routine 12/10/2015 9:35 AM Results for this CDT procedure are i n the results section. HEPATIC FUNCTION Routine 12/10/2015 9:35 AM Resul ts for this PANEL, S CDT procedure are i n the results section. GLUCOSE, FASTING, Routine 12/10/2015 9:35 AM Resu lts for this S/P CDT procedure are i n the results section. documented in this encounter Results (ABNORMAL) Glucose, Fasting (12/10/2015 9:35 AM CDT) P athologist Signature Glucose, 108 (H) 70 - 99 POWERCHART Fasting, S MGDL Specimen (Source) Anatomical Collection Method Collection Time Re ceived Time Location / / Volume Laterality Blood 12/10/2015 9:35 AM CDT [facility] FINISH[facility] INSPECT[facility] LAB BLOOD NON ADD-ON Performing Organization Address City/State/ZIP Code Phon e Number POWERCHART Lipid Panel (12/10/2015 9:35 AM CDT) P athologist Signature Cholesterol, 183 <=199 MGDL POWERCHART Total Comment: 2014 National Lipid Association recommen dations for Total Cholesterol in adults ages 18 and up: Desirable <200 mg/dL Borderline high 200-239 mg/dL High 240 mg/dL 2014 National Lipid Association recommen dations for Total Cholesterol in children ages 2 to 17. Acceptable <170 mg/dL Borderline High 170-199 mg/dL High 200 mg/dL HX HDL 119 >=50 MGDL POWERCHART Comment: 2014 National Lipid Association recommen dations for HDL-C in adults ages 18 and up: Low <40 mg/dL (Men) Low <50 mg/dL (Women) 2014 National Lipid Association recommen dations for HDL-C in children ages 2 to 17. Low <40 mg/dL Borderline Low 40-45 mg/dL Acceptable >45 mg/dL Triglycerides 40 <=149 MGDL POWERCHART Comment: 2014 National Lipid Association recommen dations for Triglycerides in adults ages 18 and up: Normal <150 mg/dL Borderline High 150-199 mg/dL High 200-499 mg/dL Very High 500 mg/dL 2014 National Lipid Association recommen dations for Triglycerides in children ages 2 to 9. Acceptable <75 mg/dL Borderline High 75-99 mg/dL High 100 mg/dL 2014 National Lipid Association recommen dations for Triglycerides in children ages 10 to 17. Acceptable <90 mg/dL Borderline High 90-129 mg/dL High 130 mg/dL Trigs >400mg/dL: Triglycerides >400 mg/ dL. Calculated LDL cholesterol is not valid. Non-HDL cholesterol may be used for risk assessment when triglycerides are >400mg/dL. Calculated LDL 56 <=129 MGDL POWERCHART Comment: 2013 National Lipid Association recommen dations for LDL-C in adults ages 18 and up: Desirable <100 mg/dL Above desirable 100-129 mg/dL Borderline high 130-159 mg/dL High 160-189 mg/dL Very High 190 mg/dL 2014 National Lipid Association recommen dations for LDL-C in children ages 2 to 17. Acceptable <110 mg/dL Borderline High 110-129mg/dL High 130 mg/dL LDL-C >190mg/dL: The markedly elevated LDL level is suggestive of a genetic condition such as familial hypercholesterolemia(FH) or familial defective apolipoprotein B-100 (FDB). Molecular genetic t esting for FH and FDB is available [facility]: FH/ADH Genetic Reflex Chen el (test ADHP). Acquired (non-genetic) causes of markedly increased LDL cholesterol include cholestatic liver disease due to the presence of LpX. If a genetic form of hypercholesterolemia is suspected, family studies including biochemical testing fo r lipids (total cholesterol,triglycerides, LDL cholesterol and HDL cholesterol) are recommended. ??Please contact the laboratory at or the on-line test catalog at [employer] for information about how to order these kristina ts or to speak with a genetic counselor. Further interpretation would require clinical information. Total Cholesterol/HDL Ratio 1.54 PO WERCHART HXLDL/HDL 0 POWERCHART Specimen (Source) Anatomical Collection Method Collection Time Re ceived Time Location / / Volume Laterality Blood 12/10/2015 9:35 AM CDT [facility]oad [facility] FINISHING INSPECTOR LAB BLOOD ADD-ON Performing Organization Address City/State/ZIP Code Phon e Number POWERCHART (ABNORMAL) Hepatic Function Panel (12/10/2015 9:35 AM CDT) Patholo gist Method Time Signature Alanine 71 (H) 7 - 45 POWERCHART Amniotransferase, LD UNITL Albumin, S 4.8 3.2 - 5.2 POWERCHART GDL Alkaline 58 37 - 98 POWERCHART Phosphatase, S UNITL Aspartate 63 (H) 8 - 43 POWERCHART Aminotransferase UNITL (AST), S Bilirubin, Direct, S <0.20 <=0.30 POWERCHAR T MGDL Bilirubin, Total, S 0.5 <=1.2 POWERCHART MGDL Total Protein, S 6.9 6.3 - 7.9 POWERCHART GDL Specimen (Source) Anatomical Collection Method Collection Time Re ceived Time Location / / Volume Laterality Blood 12/10/2015 9:35 AM CDT Hoda Horton FINISHING INSPECTOR LAB BLOOD ADD-ON Performing Organization Address City/State/ZIP Code Phon e Number POWERCHART documented in this encounter Visit Diagnoses Not on filedocumented in this encounter Additional Health Concerns Assessment Noted Time PHQ-9 Depression Total Score: 8 09/20/2015 11:24 AM CD T documented as of this encounter
--- OUTSIDE RECORDS SUMMARY | 2022-02-02 11:05 | XMS_ITS | Encounter Summary ---
:1980 Author Organization [facility] Address [address] [place] [address] Care Team Providers Name Role Phone Unavailable Primary Care Provider Unavailable Encounter Details Date Type Department Care Team Description 07/10/2012 Hospital Encounter HX [facility] Nerissa Dill, P.A.-CSarah [address] [place], [place] [phone] (Wo rk) Social History [...] do you attend taoist or Never 2019 voodoo services? Do you [...] Sign Reading Time Taken Comments Blood Pressure 100/62 07/10/2012 9:24 AM CDT Pulse 76 07/10/2012 9:24 AM CDT Temperature - - Respiratory Rate - - Oxygen Saturation - - Inhaled Oxygen Concentration - - Weight - - Height - - Body Mass Index - - documented in this encounter Progress Notes Jacklyn Dill - 07/10/2012 9:08 AM CDT [id number] Document Contains Addenda CHIEF COMPLAINT/REASON FOR VISIT Sinus issues. HISTORY OF PRESENT ILLNESS Marlin presents to the clinic today to discuss chronic sinus pressure and recurring sinus infections. She states for many, many years she has had chronic sinus pain and pressure in the bilateral frontal, maxillary and ethmoid areas. She never feels this pressure is 100% resolved. She does have exacerbation several times a year of thick nasal drainage and increased sinus pain and pressure. She has tried antibiotics for this and they do not seem to help. She does have nasal airway obstruction. Admits it is hard to breathe through her nose but still is usually a nose breather and just breathes more loudly. She has a lot of postnasal drainage, some anterior rhinitis. She had allergy testing as a childand perhaps had 1 environmental allergy but cannot recall what it was. She notes oral antihistaminesdo not seem to help. She uses a Neti pot daily which seems to help a small amount. She was recently prescribed a steroid nose spray; she believes it was Flonase but has not yet filled this prescription. She notes a bit of decreased smell. No history of surgery or trauma to the nose. She gets some throat pain intermittently from postnasal drainage but no recurring tonsillitis. She occasionally snores very mildly. About 2 weeks ago she just finished a 10-day course of Augmentin. She actually had 2 rounds of that Augmentin and it did not seem to help her sinus pressure whatsoever. Patient does have multiple other medical problems. Among these, recurring migraine headaches. She notes that when her sinus infections flare up it seems to trigger her migraines. CURRENT MEDICATIONS Per EMR. ALLERGIES Latex. Naproxen sodium. Possibly Feldene. Patient will call back to confirm this. VITAL SIGNS Per EMR. PHYSICAL EXAMINATION GENERAL: Patient is alert, pleasant and in no acute distress. Accompanied today by her 3-year-old daughter. HEAD: Normocephalic and atraumatic. Skin on the head and neck normal. External nasal exam normal. Internasal exam reveals septum to the left in 1 and 3 and to the right in area 2. She has got significant turbinate hypertrophy bilaterally, right more so than the left. 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 Tonsils are 1+. Uvula and soft palate normal. Indirect nasal p haryngoscopy normal. Indirect laryngoscopy normal. NECK: No adenopathy. IMPRESSION/REPORT/PLAN 1. Chronic sinusitis with acute exacerbation. 2. Turbinate hypertrophy. 3. Deviated nasal septum. 4. Headaches. 5. Nasal airway obstruction. PLAN: She is going to continue with Neti pot. Could try saline irrigation and is encouraged to cone picker and use the Flonase daily as directed. She will also undergo sinus CT and will return to clinic toreview this. She is comfortable with the plan. ADDENDUM: After I left the room today, patient requested that I come back and she wanted me to evaluate her left ear. About a month or month and a half ago she had an acute episode of otitis in that left ear. She states this is the first ear infection she has ever had in her life. That ear continues to feel a little bit plugged and hearing is muffled and decreased in that side. She no longer has significant pain. On exam, that ear canal is clear. The TM is dull and there is some fluid in the middle ear space. Rest of the ear is normal. Discussed the diagnosis of otitis media with effusion with her.She is going to continue to observe for a few more weeks. If it persists when I see her back, we will also obtain Audiology consult and discuss possible myringotomy at that time. She is comfortable with the plan. Jacklyn Dill PA-C/beata Electronically Signed By: JACKLYN DILL On: 07/12/2012 09:48 AM Source: [facility] [email or web address] Document Id: [id number] documented in this encounter Miscellaneous Notes Miscellaneous - Jacklyn Dill - 07/10/2012 10:01 AM CDT [place] [address] Visit Information Name: [facility] Number: [id number] Current Date: 07/10/2012 10:01:21 Physicians Attending Provider: JACKLYN DILL Primary Care Provider: STEPHANIE CARDOSO MD Your Medications Here is a list of your medications. It is important to take your medications as directed. Use a pillbox or chart to help remind you to take your medications. Please let your doctor or nurse know if you have problems taking your medications. Medication/Strength Dose Route Frequency Indications/Special Instructions/Comments citalopram (Celexa 10 mg oral tablet) 10 mg Oral once a day quetiapine (Seroquel 50 mg oral tablet) 50 mg Oral once a day *predniSONE (predniSONE 10 mg oral tablet) 10 mg Oral once a day pregabalin (Lyrica 100 mg oral capsule) 200 mg Oral three times a day hyoscyamine (HyoMax SR 0.375 mg oral tablet, extended release) 0.375 mg Oral every 12 hours as needed for Abdominal pain pantoprazole (pantoprazole 40 mg oral granule, enteric coated) 40 mg Oral two times a day levonorgestrel (Mirena) 1 each cyclobenzaprine (Flexeril) 10 mg Oral once a day (at bedtime) zolpidem (zolpidem) 5 mg Oral once a day (at bedtime) as needed for Insomnia acetaminophen (Tylenol) 500 mg Oral two times a day tramadol (tramadol) 100 mg Oral two times a day With Tylenol. lorazepam (lorazepam) 1 mg Oral every 6 hours as needed for Anxiety * You have let us know that you are not taking this medication as listed. Please talk with your primary care provider or the health care provider who prescribed the medication as soon as possible. Attention: If you have any medications at home that are not on this list, DO NOT take them until youcontact your provider for clarification. Your Allergies & Intolerances Substance Reaction Symptoms Category Comments Latex Drug Naproxen Sodium Drug Your Problem List Problem Status Onset Comments Juvenile rheumatoid arthritis Active Fibromyalgia Active Raynaud's phenomenon Active Esophageal reflux (GERD) Active Depression with Anxiety* Active Your Upcoming Appointments Date Time Location Reason Provider No Appointments found Your Goals/Additional instructions: Source: [facility] POWERCHART Document Id: [id number] Miscellaneous - Jacklyn Dill - 07/10/2012 10:01 AM CDT [place] [address] Visit Information Name: [facility] Number: [id number] Visit Date: 07/10/2012 10:01:20 Attending Provider: JACKLYN DILL Primary Care Provider: STEPHANIE CARDOSO MD, KRISTA ANN has been given the following list of medications: Your Medications It is important to take your medications as directed. Use a pill box or chart to help remind you to take your medications. Please let your doctor or nurse know if you have problems taking your medications. Medication/Strength Dose Route Frequency Indications/Special Instructions/Comments citalopram (Celexa 10 mg oral tablet) 10 mg Oral once a day quetiapine (Seroquel 50 mg oral tablet) 50 mg Oral once a day *predniSONE (predniSONE 10 mg oral tablet) 10 mg Oral once a day pregabalin (Lyrica 100 mg oral capsule) 200 mg Oral three times a day hyoscyamine (HyoMax SR 0.375 mg oral tablet, extended release) 0.375 mg Oral every 12 hours as needed for Abdominal pain pantoprazole (pantoprazole 40 mg oral granule, enteric coated) 40 mg Oral two times a day levonorgestrel (Mirena) 1 each cyclobenzaprine (Flexeril) 10 mg Oral once a day (at bedtime) zolpidem (zolpidem) 5 mg Oral once a day (at bedtime) as needed for Insomnia acetaminophen (Tylenol) 500 mg Oral two times a day tramadol (tramadol) 100 mg Oral two times a day With Tylenol. lorazepam (lorazepam) 1 mg Oral every 6 hours as needed for Anxiety * You have let us know that you are not taking this medication as listed. Please talk with your primary care provider or the health care provider who prescribed the medication as soon as possible. Attention: If you have any medications at home that are not on this list, DO NOT take them until youcontact your provider for clarification. Additional Information: [facility] Document Id: [id number] Miscellaneous - Quinn Horn L.P.N. - 07/10/2012 9:24 AM CDT Adult Warp Drawer Intake/History Adult Warp Drawer Intake/History Entered On: 07/10/2012 9:31 CDT Performed On: 07/10/2012 9:24 CDT by QUINN HORN Intake Chief Complaint : sinus infections with sinus pressure and pain- sinus sx trigger migraines Onset of Symptoms : several years Temperature Oral : 37.0 DegC(Converted to: 98.6 DegF) Peripheral Pulse Rate : 76 /min Systolic Blood Pressure : 100 mmHg Diastolic Blood Pressure : 62 mmHg NIBP Mean : 75 mmHg BP Location : Left upper extremity Blood Pressure Cuff Size : Regular QUINN HORN - 07/10/2012 9:24 CDT General Info Information Given By : Patient Languages : Lebanese QUINN HORN 07/10/2012 9:24 CDT Subjective Pain Symptoms : Yes QUINN HORN 07/10/2012 9:24 CDT Pain Pain Assessment Grid Pain 1 Location : Other: facial pain-forehead, cheeks, jaw and behind eyes Intensity : 8 QUINN HORN 07/10/2012 9:24 CDT Dependent Habits Tobacco Use/Currently Using : Yes Exposure to Tobacco Smoke : Patient smokes Smoking Status : Current every day smoker JUSTINA QUINN Akhtar 07/10/2012 9:24 CDT Tobacco Use Grid Type : Cigarettes Cigarette Use Packs/Day : 1 Last Use : today QUINN HORN 07/10/2012 9:24 CDT Caffeine Use Grid Caffeine Use : Current Type : Coffee, Soft drinks Frequency : Daily QUINN HORN 07/10/2012 9:24 CDT Recreational Drug Use Grid Drug Use : None QUINN HORN 07/10/2012 9:24 CDT [facility]: [facility] Document Id: [id number] CDT!38 documented in this encounter Plan of Treatment Not on filedocumented as of this encounter Visit Diagnoses Not on filedocumented in this encounter Additional Health Concerns Assessment Noted Time PHQ-9 Depression Total Score: 20 04/25/2011 10:[address] documented as of this encounter
--- OUTSIDE RECORDS SUMMARY | 2022-02-02 11:05 | XMS_ITS | Encounter Summary ---
:1980 Author Organization [facility] Address [address] [place] [address] Care Team Providers Name Role Phone Unavailable Primary Care Provider Unavailable Encounter Details Date Type Department Care Team Description 01/23/2011 Hospital Encounter [facility]X [facility] Marky Olmstead M.D. [address] [place], [place] [phone] (Wo rk) Social History [...] do you attend taoist or Never 2019 amish services? Do you belong to any clubs [...] documented as of this encounter Progress Notes Shamika Kraus M.D. - 01/23/2011 12:00 AM CDT [id number] CHIEF COMPLAINT/ REASON FOR VISIT Pelvic pain and abnormal discharge HISTORY OF PRESENT ILLNESS Marlin is a 30-year-old para 0-3-1-3 female with approximately 4 days of suprapubic cramping and low back pain as well as abnormal discharge. Patient states that over the last several months she has had two infections with bacterial vaginosis which initially the first was treated with MetroGel and the second was treated with Flagyl 7-day oral course. Between these two infections she had a yeast infection that was also treated. She states that she did present to see her physician for these infections and all were confirmed with laboratory testing. She states that beginning 4 days ago she had onset of low abdominal/suprapubic pain that she describes as cramping pain in the midline. This is constant and sometimes it is worse. This pain radiates into her low back. Associated with this she has had clearish yellow thin vaginal discharge that has a very foul odor. She has actually had this discharge for the last 2 weeks. She had a Mirena IUD placed in October and states that her symptoms of infection did start then. She also states that she is concerned about sexually transmitted diseases since she has been from her for the last several months and has had two new sexual partners during that time. She states that she did not always use condoms when she had intercourse with these new partners. She is now back with her . Also for approximately the last several months she has had irregular vaginal bleeding. She states that over the last several weeks some days the bleeding is heavy and sometimes it is only spotting. Finally the patient complains of dyspareunia with insertion as well as with deep penetration. She is unable to localize these symptoms. She states that there are no issues with lubrication and she does not always have pain with intercourse. However it can be quite severe at times. This does fluctuate. Finally the patient states that she has a sore area on the anterior labia that is in the same location as a laceration from one of her deliveries. She states that she gets a bump in this location that can be very tender, especially when it is touched. When this area is tender she does have dysuria on the outside with urination. CURRENT MEDICATIONS 1. Mirena IUD 2. Flexeril p.r.n. 3. Gabapentin 4. Zolpidem 5. Tylenol. 6. Citalopram. 7. Tramadol 7. Effexor. 8. Lorazepam ALLERGIES Latex and naproxen sodium as well as other medications that the patient cannot recall. PAST MEDICAL/SURGICAL HISTORY 1. Juvenile rheumatoid arthritis. 2. Fibromyalgia 3. Raynaud's phenomenon 4. Gastroesophageal reflux disease. 5. Anxiety and depression. 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 Patient underwent menarche at age 18 and has a history of very irregular menses. She denies any history of sexually transmitted infections or abnormal Pap smears. Past Surgical History 1. Left wrist surgery for diagnosing rheumatoid arthritis in 1984 2. Left ankle fusion in 2000 3. Removal of hardware from the left ankle in 2009. SYSTEMS REVIEW GENERAL: Positive for fatigue and weight gain. HEENT: Positive for changes in hearing, occasional sore throat and nasal congestion as well as ringing in her ears for the last several days. CARDIOVASCULAR: No chest pain, irregular heartbeat or racing heart. RESPIRATORY: No shortness of breath, cough or wheeze. GASTROINTESTINAL: Positive for nausea, vomiting, diarrhea, constipation and these issues are being worked up by the patient's primary physician. She also complains of abdominal pain described in HPI. GENITOURINARY: Positive for history of irregular menses and abnormal vaginal discharge - see HPI. SKIN: No rashes or skin lesions. BREASTS: No masses or lumps, no discharge from the nipples. NEURO: Positive for difficulty with memory, numbness and tingling. PSYCHE: Positive for anxiety, depression and difficulty sleeping. ENDOCRINE: Positive for cold intolerance, excessive thirst and hair loss. SOCIAL HISTORY Positive for tobacco use half a pack per day. Positive for social alcohol use and patient denies drug use. She denies any history of abuse and she is and back with her . She does not work outside of the home and is working on paperwork for disability. FAMILY HISTORY Mother with breast cancer diagnosed at age 54, paternal grandmother with breast cancer diagnosed in her 70s. Paternal aunt with uterine cancer. Father and father's first cousins, three of them with thyroid cancer. VITAL SIGNS HEIGHT 167.2 cm WEIGHT 58.9 kg TEMPERATURE 37.0 Celsius RESPIRATORY RATE 16 PULSE 76 BLOOD PRESSURE 104/66 left upper extremity PHYSICAL EXAM GENERAL: Well nourished female in no acute distress. HEENT: Vision and hearing grossly intact. CARDIOVASCULAR: Regular rate and rhythm, no murmurs, rubs or gallops. CHEST: Clear to auscultation bilaterally, no wheezes or rales. ABDOMEN: Soft, nondistended, diffuse tenderness to palpation non localized, normoactive bowel sounds, no rebound or guarding, no masses palpable. PELVIC EXAM: External genitalia without lesions or abnormalities, pubic hair is shaved so it is difficult to assess the pubic hair distribution, patient points to the left clitoral pitt when describing the area of a bump and tenderness and no lesions or abnormalities are noted in this area. Urethral meatus is normal in location and appearance, without masses. Vaginal mucosa is pink and moist with a small amount of thin clear discharge noted in the posterior vaginal fornix. Cervix is parous and without lesions or abnormalities and the IUD strings are visible protruding from the external cervical os. On bimanual examination the pelvic floor muscles are nontender, the urethral and bladder are mildly tender but patient describes this as different pain than the pain she is feeling that she describes as cramping pain. The cervix is nontender, but the uterus is anteverted and tender to palpation. Bilateral adnexa are tender but no masses are noted. No cervical motion tenderness. LOWER EXTREMITIES: Nontender, no edema. IMPRESSION/REPORT/PLAN 30-year-old para 0-3-1-3 female with abnormal vaginal discharge and pelvic pain as well as dyspareunia. 1. Vaginal discharge and pelvic pain: Patient has no cervical motion tenderness but does have uterine and bladder tenderness. Vaginal pH was basic and whiff test was positive. Clue cells were noted on the informal wet prep done in the clinic. A formal wet prep will be sent. Gonorrhea and chlamydia testing was also performed today and the patient will undergo HIV, syphilis and hepatitis B testing due to her high-risk exposures and now this pelvic pain and abnormal vaginal discharge. I will go ahead and start a course of Flagyl for 1 week. She was advised not to drink alcohol while on this medication. This is likely her third episode of bacterial vaginosis in the recent past. If no other etiology is found for her pelvic pain and abnormal vaginal discharge I may need to treat her for recurrent bacterial vaginosis. It is difficult to evaluate her dyspareunia with concurrent symptoms of this pelvic pain and abnormal vaginal discharge. I would like to perform a pelvic ultrasound in the near future to evaluate her uterus and ovaries. She will return in 1 week for this. I will be able to evaluate how her symptoms have responded to the treatment with Flagyl at that time. Patient was also counseled on vulvar hygiene practices including using only plain water on her bottom and avoiding shaving if possible. 2. Followup: The patient will return in 1 week for pelvic ultrasound and to review her laboratory results. We will assess how she has done with the Flagyl at that time. If she has any questions or concerns prior to that time she should call the clinic. I would like to also evaluate the placement of her Mirena IUD at the time of ultrasound. KR/mgd Signed Shamika Kraus M.D. Obstetrics & Gynecology Electronically Signed By: SHAMIKA KRAUS MD On: 02/01/2011 12:25 PM Source: [facility] MHSDOLBEYNONRADSYS Document Id: [id number] documented in this encounter Miscellaneous Notes Miscellaneous - Shamika Kraus M.D. - 01/23/2011 4:07 PM CDT Ambulatory [place] [address] Visit Information Name: PLUMMER MARLINROBEL MICHAEL Current Date: 01/23/2011 16:07:57 Primary Care Provider: STEPHANIE CARDOSO MD Your Medications Here is a list of your medications. It is important to take your medications as directed. Use a pillbox or chart to help remind you to take your medications. Please let your doctor or nurse know if you have problems taking your medications. Medication/Strength Dose Route Frequency Indications/Special Instructions/Comments metronidazole (Flagyl 500 mg oral tablet) 0.5 gm Oral every 12 hours levonorgestrel (Mirena) cyclobenzaprine (Flexeril) zolpidem (zolpidem) gabapentin (gabapentin 100 mg oral capsule) acetaminophen (Tylenol) tramadol (tramadol) citalopram (citalopram) venlafaxine (Effexor) lorazepam (lorazepam) Your Allergies & Intolerances Substance Reaction Symptoms Category Comments Latex Drug Naproxen Sodium Drug Your Problem List Problem Status Onset Comments No Problems found Your Recommendations We want to make sure [...] Test/Treatment Last Done Next Due Additional Information Screening Pap Smear every 3 years Women 21-65 01/23/2011 Checks for signs of cancer of the cervix. Lipid Panel every 5 years Age 20-75 01/23/2011 Checks blood for good (HDL) and bad (LDL) cholesterol. Know your numbers, they are one indicator of your risk for heart attack and stroke. Vaccine: Tetanus every 10 years 11/03/2008 11/01/2018 Immunization to help prevent you from getting the serious disease Tetanus (Lockjaw). Your Upcoming Appointments Date Time Location Reason Provider No Appointments found Your Goals/Additional instructions: Source: [facility] POWERCHART Document Id: [id number] Electronically signed by Jerry [facility] Contract Negotiation Manager [id number] at 09/03/2016 4:04 PM CDT Miscellaneous - Shamika Kraus M.D. - 01/23/2011 4:07 PM CDT Ambulatory [place] [address] Visit Information Name: MARLIN PLUMMER Current Date: 01/23/2011 16:07:56 Primary Care Provider: STEPHANIE CARDOSO MD, KRISTA ANN has been given the following list of medications: Your Medications It is important to take your medications as directed. Use a pill box or chart to help remind you to take your medications. Please let your doctor or nurse know if you have problems taking your medications. Medication/Strength Dose Route Frequency Indications/Special Instructions/Comments metronidazole (Flagyl 500 mg oral tablet) 0.5 gm Oral every 12 hours levonorgestrel (Mirena) cyclobenzaprine (Flexeril) zolpidem (zolpidem) gabapentin (gabapentin 100 mg oral capsule) acetaminophen (Tylenol) tramadol (tramadol) citalopram (citalopram) venlafaxine (Effexor) lorazepam (lorazepam) Additional Information: -Have labs drawn before you leave. Schedule visit for 1 week. Yes - Current list of reconciled medications is provided and explained to the patient and/or family, guardian/caregiver. Source: [facility] POWERCHART Document Id: [id number] Electronically signed by Conversion, [facility] Contract Negotiation Manager [id number] at 09/03/2016 4:04 PM CDT Miscellaneous - Conversion, Historical Provider Ser - 01/23/2011 3:17 PM CDT Adult Motion Picture Film Examiner Intake/History Adult Motion Picture Film Examiner Intake/History Entered On: 01/23/2011 15:20 CDT Performed On: 01/23/2011 15:17 CDT by GABRIELLE ALLEN Intake Temperature Core: 37.0C(Converted to: 98.6DegF) Peripheral Pulse Rate: 76/min Respiratory Rate: 16/min Systolic Blood Pressure: 104mmHg Diastolic Blood Pressure: 66mmHg NIBP Mean: 79mmHg BP Location: Left upper extremity Height: 167.20cm(Converted to: 5ft 6inch(es), 65.83inch(es)) Actual Weight: 58.900kg(Converted to: 129lb 14oz) Dosing Weight Clinic: 58.90kg Clinic BSA: 1.65 Body Mass Index: 21.07kg/m2 GABRIELLE ALLEN - 01/23/2011 15:17 CDT Subjective Pain Symptoms: Yes GABRIELLE ALLEN - 01/23/2011 15:17 CDT Pain Pain Assessment Grid Pain 1 Pain 2 Location: Pelvic Lower back GABRIELLE ALLEN - 01/23/2011 15:17 CDT GABREILLE ALLEN - 01/23/2011 15:17 CDT Dependent Habits Tobacco Use/Currently Using: Yes Tobacco Use/Advised to Quit: Yes Exposure to Tobacco Smoke: Patient smokes Smoking Status: Current every day smoker GABRIELLE ALLEN - 01/23/2011 15:17 CDT Tobacco Use Grid Type: Cigarettes Cigarette Use Packs/Day: 0.5 Last Use: today GABRIELLE ALLEN - 01/23/2011 15:17 CDT Alcohol Use: No GABRIELLE ALLEN - 01/23/2011 15:17 CDT Caffeine Use Grid Caffeine Use: Current Type: Coffee, Soft drinks Frequency: Daily GABRIELLE ALLEN - 01/23/2011 15:17 CDT Allergy Allergies (Active) Latex Estimated Onset Date: [...] GABRIELLE ALLEN;Reviewed Date: 01/23/2011 15:13 CDT Source: [employer] Document Id: [id number]!38 documented in this encounter Plan of Treatment Not on filedocumented as of this encounter Visit Diagnoses Not on filedocumented in this encounter Additional Health Concerns Assessment Noted Time PHQ-9 Depression Total Score: 4 02/09/2010 4:47 PM PROJECT MANAGEMENT INSTRUCTOR documented as of this encounter
--- OUTSIDE RECORDS SUMMARY | 2022-02-02 11:05 | XMS_ITS | Encounter Summary ---
:1980 Author Organization [facility] Address [address] [place] [address] Care Team Providers Name Role Phone Unavailable Primary Care Provider Unavailable Encounter Details Date Type Department Care Team Description 08/28/2012 Hospital Encounter HX [facility] ENT Addy Ramachandran M.D. [address] [place], [place] [phone] (Wo rk) Social History [...] do you attend congregational or Never 2019 jehovah's witness services? Do [...] Sign Reading Time Taken Comments Blood Pressure 108/58 08/28/2012 2:31 PM CDT Pulse 64 08/28/2012 2:31 PM CDT Temperature - - Respiratory Rate 14 08/28/2012 2:31 PM CDT Oxygen Saturation - - Inhaled Oxygen Concentration - - Weight - - Height - - Body Mass Index - - documented in this encounter Progress Notes Dada Ramachandran M.D. - 08/28/2012 2:27 PM CDT [id number] CHIEF COMPLAINT / REASON FOR VISIT 3 weeks status post nasal septoplasty, endoscopic partial resection right middle turbinate reduction, and right inferior turbinate submucosal cautery HISTORY OF PRESENT ILLNESS This patient is a 32-year-old female here for a postop recheck. Still some tenderness in her nose. Patient complains of pressure and plugged sensation with decreased hearing for several months in her left ear. No other concerns. Patient otherwise doing well. VITAL SIGNS RESPIRATORY RATE: 14/min. TEMPERATURE: 36.7 C BLOODPRESSURE: 108/58 mmHg. PHYSICAL EXAM NOSE: Septum and turbinates appear well healed. Left anterior septal mucosa dry and mildly swollen. Incision well healed. EARS: External ears appear normal. Right ear normal. Left TM covered with dried wax layered on TM. This was cleaned under the otomicroscope with mineral oil drops, suction, and right angle hook. TM appears normal and intact. Middle ear spaces appear clear. IMPRESSION / REPORT / PLAN 1. Satisfactory postop recheck nasal septoplasty, endoscopic partial resection right middle turbinate reduction, and right inferior turbinate submucosal cautery. 2. Cerumen impaction left ear. PLAN: Left ear cleaned as dictated. Discussed and reassured regarding satisfactory postop recovery. Healing nicely. Discussed saline irrigation on a p.r.n. basis. Will follow up in 2 weeks to recheck her nose and left ear, sooner on a p.r.n. basis. This document serves as a record of services personally performed by Dr. Dada Ramachandran. It was created on his behalf by Brodie Cage, a trained senior medical technologist. The creation of this record is based on the scribe's personal observations and the provider's statements to him. This document has been checked and approved by the attending provider. Dada Ramachandran M.D./fabricio Electronically Signed By: DADA RAMACHANDRAN MD On: 09/09/2012 03:57 PM Source: [facility] MHSDOLBEYNONRADSYS Document Id: [id number] documented in this encounter Miscellaneous Notes Miscellaneous - Dada Ramachandran M.D. - 08/28/2012 3:18 PM CDT Ambulatory [place] [address] Visit Information Name: MARLIN PLUMMER [facility] Number: [id number] Current Date: 08/28/2012 15:18:56 Physicians Attending Provider: DADA RAMACHANDRAN MD Primary Care Provider: STEPHANIE CARDOSO MD Your Medications Here is a list of your medications. It is important to take your medications as directed. Use a pillbox or chart to help remind you to take your medications. Please let your doctor or nurse know if you have problems taking your medications. Medication/Strength Dose Route Frequency Indications/Special Instructions/Comments cephalexin (Keflex 500 mg oral capsule) 500 mg Oral two times a day pregabalin (Lyrica 300 mg oral capsule) 300 mg Oral three times a day lamotrigine (Lamictal 200 mg oral tablet) 200 mg Oral once a day lactobacillus rhamnosus GG (Culturelle HS oral capsule) 1 cap(s) Oral once a day hyoscyamine (Levbid 0.375 mg oral tablet, extended release) 0.375 mg Oral every 12 hours as needed for spasm fluticasone nasal (Flonase 50 mcg/inh nasal spray) 1 spray(s) Nostrils(Both) two times a day omega-3 polyunsaturated fatty acids (Fish Oil oral capsule) 1 cap(s) Oral once a day duloxetine (Cymbalta 30 mg oral delayed release capsule) 30 mg Oral once a day celecoxib (Celebrex 200 mg oral capsule) 200 mg Oral two times a day quetiapine (Seroquel 50 mg oral tablet) 100 mg Oral once a day pantoprazole (pantoprazole 40 mg oral granule, enteric coated) 40 mg Oral two times a day levonorgestrel (Mirena) 1 each cyclobenzaprine (Flexeril) 10 mg Oral once a day (at bedtime) zolpidem (zolpidem) 10 mg Oral as needed as needed for Insomnia acetaminophen (Tylenol) 500 mg Oral two times a day tramadol (tramadol) 100 mg Oral two times a day With Tylenol. lorazepam (lorazepam) 1 mg Oral every 6 hours as needed for Anxiety Attention: If you have any medications at home that are not on this list, DO NOT take them until youcontact your provider for clarification. Your Allergies & Intolerances Substance Reaction Symptoms Category Comments morphine nausea, vomiting Drug Latex Drug Naproxen Sodium Drug Your Problem List Problem Status Onset Comments Juvenile rheumatoid arthritis Active Fibromyalgia Active Raynaud's phenomenon Active Esophageal reflux (GERD) Active Depression with Anxiety* Active Your Upcoming Appointments Date Time Location Reason Provider No Appointments found Your Goals/Additional instructions: Source: [facility] POWERCHART Document Id: [id number] Miscellaneous - Dada Ramachnadran M.D. - 08/28/2012 3:18 PM CDT [place] [address] Visit Information Name: MARLIN PLUMMER [facility] Number: [id number] Visit Date: 08/28/2012 15:18:55 Attending Provider: DADA RAMACHANDRAN MD Primary Care Provider: STEPHANIE CARDOSO MD, KRISTA ANN has been given the following list of medications: Your Medications It is important to take your medications as directed. Use a pill box or chart to help remind you to take your medications. Please let your doctor or nurse know if you have problems taking your medications. Medication/Strength Dose Route Frequency Indications/Special Instructions/Comments cephalexin (Keflex 500 mg oral capsule) 500 mg Oral two times a day pregabalin (Lyrica 300 mg oral capsule) 300 mg Oral three times a day lamotrigine (Lamictal 200 mg oral tablet) 200 mg Oral once a day lactobacillus rhamnosus GG (Culturelle HS oral capsule) 1 cap(s) Oral once a day hyoscyamine (Levbid 0.375 mg oral tablet, extended release) 0.375 mg Oral every 12 hours as needed for spasm fluticasone nasal (Flonase 50 mcg/inh nasal spray) 1 spray(s) Nostrils(Both) two times a day omega-3 polyunsaturated fatty acids (Fish Oil oral capsule) 1 cap(s) Oral once a day duloxetine (Cymbalta 30 mg oral delayed release capsule) 30 mg Oral once a day celecoxib (Celebrex 200 mg oral capsule) 200 mg Oral two times a day quetiapine (Seroquel 50 mg oral tablet) 100 mg Oral once a day pantoprazole (pantoprazole 40 mg oral granule, enteric coated) 40 mg Oral two times a day levonorgestrel (Mirena) 1 each cyclobenzaprine (Flexeril) 10 mg Oral once a day (at bedtime) zolpidem (zolpidem) 10 mg Oral as needed as needed for Insomnia acetaminophen (Tylenol) 500 mg Oral two times a day tramadol (tramadol) 100 mg Oral two times a day With Tylenol. lorazepam (lorazepam) 1 mg Oral every 6 hours as needed for Anxiety Attention: If you have any medications at home that are not on this list, DO NOT take them until youcontact your provider for clarification. Additional Information: Source: [facility] POWERCHART Document Id: [id number] Miscellaneous - Fern Esparza, R.N. - 08/28/2012 2:31 PM CDT Adult Clinical Program Coordinator Intake/History Adult Clinical Program Coordinator Intake/History Entered On: 08/28/2012 14:36 CDT Performed On: 08/28/2012 14:31 CDT by FERN ESPARZA Intake Chief Complaint : postop nasal surgery from 08/07/12 c/o some tenderness in nose Temperature Core : 36.7 DegC(Converted to: 98.1 DegF) Peripheral Pulse Rate : 64 /min Respiratory Rate : 14 /min Systolic Blood Pressure : 108 mmHg Diastolic Blood Pressure : 58 mmHg NIBP Mean : 75 mmHg BP Location : Right upper extremity Blood Pressure Cuff Size : Regular FERN ESPARZA - 08/28/2012 14:31 CDT General Info Information Given By : Patient Preferred Communication Mode : Verbal Languages : Arabic THOM ESPARZADIA R 08/28/2012 14:31 CDT Subjective Pain Symptoms : No ESPARZA FERN 08/28/2012 14:31 CDT Dependent Habits Tobacco Use/Currently Using : Yes Exposure to Tobacco Smoke : Patient smokes Smoking Status : Current every day smoker THOM ESPARZADIA 08/28/2012 14:31 CDT Tobacco Use Grid Type : Cigarettes Cigarette Use Packs/Day : 1 PETTY FERN Montes 08/28/2012 14:31 CDT Caffeine Use Grid Caffeine Use : Current Type : Coffee, Soft drinks Frequency : Daily ESPARZA FERN Montes 08/28/2012 14:31 CDT Recreational Drug Use Grid Drug Use : None ESPARZA FERN 08/28/2012 14:31 CDT Source: [employer] Document Id: [id number] documented in this encounter Plan of Treatment Not on filedocumented as of this encounter Visit Diagnoses Not on filedocumented in this encounter Additional Health Concerns Assessment Noted Time PHQ-9 Depression Total Score: 20 04/25/2011 10:[address] documented as of this encounter
--- OUTSIDE RECORDS SUMMARY | 2022-02-02 11:05 | XMS_ITS | Encounter Summary ---
:1980 Author Organization [facility] Address [address] [place] [address] Care Team Providers Name Role Phone Unavailable Primary Care Provider Unavailable Encounter Details Date Type Department Care Team Description 07/24/2012 Hospital Encounter HX [facility] Nerissa Dill, P.A.-CSarah [address] [place], [place] [phone] (Wo rk) Social History [...] do you attend gnosticism or Never 2019 congregation services? Do you belong to any clubs [...] documented as of this encounter Progress Notes Jacklyn Dill - 07/24/2012 10:39 AM CDT [id number] CHIEF COMPLAINT/REASON FOR VISIT Review CT and check ear. HISTORY OF PRESENT ILLNESS Marlin presents to the clinic today for a recheck of her left ear and to review sinus CT. Her left ear continues to feel plugged and this has now been present for a month or two. There is a pressure inher ear. She feels like this waxes and wanes and it is contributing to her regular headaches. She also continues with the chronic nasal airway obstruction. She breathes through her mouth but it is loudand labored for her to do so. This causes even more difficulty when she is trying to walk quickly orexercise. She has a constant drainage and pressure and congestion sensation in her nose. CURRENT MEDICATIONS Per EMR. ALLERGIES Latex. Morphine. Naproxen. Sodium. VITAL SIGNS Per EMR. PHYSICAL EXAMINATION GENERAL: Patient is alert and in no acute distress. Did spend time reviewing CT with her today in detail. All sinuses are clear on the sinus CT. She does have deviated nasal septum. In fact, this is deviated to the left and impacts both inferior and middle turbinates. She has inferior and middle turbinate hypertrophy on the right side. No juancarlos bullosa or other abnormalities noted. IMPRESSION/REPORT/PLAN 1. Deviated nasal septum. 2. Nasal airway obstruction. 3. Nasal turbinate hypertrophy. 4. Headaches. 5. Eustachian tube dysfunction. PLAN: Discussed involved anatomy and findings, both in regard to the ear and nasal sinus symptoms. In regards to the ear, she is somewhat interested in PE tube placement today. Discussed that this may or may not alleviate her symptoms and she is going to continue to observe and if in several weeks hersymptoms persist and she would like to try tubes at that time she will let us know. Did discuss risks, benefits and possible complications of PE tube placement today in detail. In regard to her nasal symptoms, she is interested in proceeding with surgical options as [id number] prescription meds have not helped. We discussed today surgical option of nasal septoplasty, right middle turbinate partial resection and right inferior turbinate submucosal cautery in detail including goals, risks and potential complications. Did discuss potential for septal perforation, hematoma, abscess. Discussed postop recovery process and her questions were answered. She wishes to proceed with surgery. She is advised to schedule a preop physical with primary care for assessment of anesthetic and surgical risk. Patient is also encouraged to quit smoking. Jacklyn Dill PA-C/beata Electronically Signed By: JACKLYN DILL On: 07/26/2012 08:09 AM Source: [facility] MHSDOLBEYNONRADSYS Document Id: [id number] documented in this encounter Miscellaneous Notes Miscellaneous - Jacklyn Dill - 07/24/2012 11:37 AM CDT [place] [address] Visit Information Name: MARLIN PLUMMER [facility] Number: [id number] Current Date: 07/24/2012 11:37:30 Physicians Attending Provider: JACKLYN DILL Primary Care [...] Dose Route Frequency Indications/Special Instructions/Comments pregabalin (Lyrica 300 mg oral capsule) 300 [...] 200 mg Oral two times a day *citalopram (Celexa 10 mg oral tablet) 10 mg Oral once a day quetiapine (Seroquel 50 mg oral tablet) 100 mg Oral once a day *predniSONE (predniSONE 10 mg oral tablet) 10 mg Oral once a day *hyoscyamine (HyoMax SR 0.375 mg oral tablet, extended release) 0.375 mg Oral every 12 hours as needed for Abdominal pain *pantoprazole (pantoprazole 40 mg oral granule, enteric coated) 40 mg Oral two times a day levonorgestrel (Mirena) 1 each cyclobenzaprine (Flexeril) 10 mg Oral once a day (at bedtime) zolpidem (zolpidem) 10 mg Oral as needed as needed for Insomnia *acetaminophen (Tylenol) 500 mg Oral two times a [...] No Appointments found Your Goals/Additional instructions: Source: [facility] POWERCHART Document Id: [id number] Miscellaneous - Jacklyn Dill - 07/24/2012 11:37 AM CDT [place] [address] Visit Information Name: MARLIN PLUMMER [facility] Number: [id number] Visit Date: 07/24/2012 11:37:29 Attending Provider: JACKLYN DILL Primary Care Provider: [...] Dose Route Frequency Indications/Special Instructions/Comments pregabalin (Lyrica 300 mg oral capsule) 300 [...] 200 mg Oral two times a day *citalopram (Celexa 10 mg oral tablet) 10 mg Oral once a day quetiapine (Seroquel 50 mg oral tablet) 100 mg Oral once a day *predniSONE (predniSONE 10 mg oral tablet) 10 mg Oral once a day *hyoscyamine (HyoMax SR 0.375 mg oral tablet, extended release) 0.375 mg Oral every 12 hours as needed for Abdominal pain *pantoprazole (pantoprazole 40 mg oral granule, enteric coated) 40 mg Oral two times a day levonorgestrel (Mirena) 1 each cyclobenzaprine (Flexeril) 10 mg Oral once a day (at bedtime) zolpidem (zolpidem) 10 mg Oral as needed as needed for Insomnia *acetaminophen (Tylenol) 500 mg Oral two times a [...] your provider for clarification. Additional Information: Source: [facility] POWERCHART Document Id: [id number] Miscellaneous - Yazmin Esparza RHarvinder - 07/24/2012 10:43 AM CDT Adult Ed Educational Aide Intake/History Adult Ed Educational Aide Intake/History Entered On: 07/24/2012 10:45 CDT Performed On: 07/24/2012 10:43 CDT by YAZMIN ESPARZA Intake Chief Complaint : Discuss CT sinus results left ear and sinus pain/pressure ESPARZAYAZMIN NARVAEZ R - 07/24/2012 10:43 CDT General Info Information Given By : Patient Preferred Communication Mode : Verbal Languages : Slovak YAZMIN ESPARZA R - 07/24/2012 10:43 CDT Subjective Pain Symptoms : Yes YAZMIN ESPARZA R - 07/24/2012 10:43 CDT Pain Pain Assessment Grid Pain 1 Location : Ear Laterality : Left YAZMIN ESPARZA R - 07/24/2012 10:43 CDT Dependent Habits Tobacco Use/Currently Using : Yes Exposure to Tobacco Smoke : Patient smokes Smoking Status : Current every day smoker YAZMIN ESPARZA R - 07/24/2012 10:43 CDT Tobacco Use Grid Type : Cigarettes Cigarette Use Packs/Day : 1 Last Use : today YAZMIN ESPARZA R - 07/24/2012 10:43 CDT Caffeine Use Grid Caffeine Use : Current Type : Coffee, Soft drinks Frequency : Daily YAZMIN ESPARZA 07/24/2012 10:43 CDT Recreational Drug Use Grid Drug Use : None YAZMIN ESPARZA - 07/24/2012 10:43 CDT [facility] Document Id: [id number] CDT!31 documented in this encounter Plan of Treatment Not on filedocumented as of this encounter Visit Diagnoses Not on filedocumented in this encounter Additional Health Concerns Assessment Noted Time PHQ-9 Depression Total Score: 20 04/25/2011 10:[address] documented as of this encounter
--- OUTSIDE RECORDS SUMMARY | 2022-02-02 11:05 | XMS_ITS | Encounter Summary ---
:1980 Author Organization [facility] Address [address] [place] [address] Care Team Providers Name Role Phone Unavailable Primary Care Provider Unavailable Encounter Details Date Type Department Care Team Description 11/30/2012 - Hospital Encounter HX [facility] 3 Karen Jacobsen, 12/05/2012 CELIO Oliver [address] [place] [phone] Social History Tobacco Use Types Packs/Day Years [...] do you attend moravian or Never 2019 [employer]aritan services? Do you [...] Sign Reading Time Taken Comments Blood Pressure 96/55 12/05/2012 7:05 AM CDT Pulse 75 12/05/2012 7:05 AM CDT Temperature - - Respiratory Rate 17 12/05/2012 7:05 AM CDT Oxygen Saturation - - Inhaled Oxygen Concentration - - Weight 72 kg (158 lb 11.7 oz) 12/05/2012 7:05 AM CDT Height 162 cm (5' 3.78) 11/30/2012 8:55 AM CDT Body Mass Index 27.43 11/30/2012 8:55 AM CDT documented in this encounter Plan of Treatment Not on filedocumented as of this encounter Procedures Procedure Name Priority Date/Time Associated Comments Diagnosis ALANINE AMINOTRANSFERASE Routine 11/30/2012 3:05 Results for this (ALT), S/P PM CDT procedure are i n the results section. ASPARTATE Routine 11/30/2012 3:05 Results for this AMINOTRANSFERASE (AST), PM CDT proc edure are in S/P the results section. GAMMA-GLUTAMYLTRANSFERAS Routine 11/30/2012 3:05 Results for this E (GGT), S/P PM CDT procedure are i n the results section. ELECTROLYTE (CHEM 4) Routine 11/30/2012 6:21 Resu lts for this PANEL, S/P AM CDT procedure are i n the results section. THYROID FUNCTION Routine 11/30/2012 6:21 Results for this CASCADE, S AM CDT procedure are i n the results section. CBC WITH DIFFERENTIAL, B Routine 11/30/2012 6:21 Results for this AM CDT procedure are i n the results section. DRUG ABUSE SURVEY, U Routine 11/30/2012 4:31 Resu lts for this AM CDT procedure are i n the results section. ADULTERANTS SURVEY, U Routine 11/30/2012 4:31 Res ults for this AM CDT procedure are i n the results section. documented in this encounter Results ALT (Alanine Aminotransferase) (11/30/2012 3:05 PM CDT) [facility] Method Time Signature Alanine 12 7 - 45 [facility] Aminotransferase U/L LABORATORIES - (ALT), S [facility] Specimen Anatomical Collection Method Collection Time Receive d Time (Source) Location / / Volume Laterality 11/30/2012 3:05 PM 3 3:05 CDT PM CDT Marisol Van, B.Ch., B.M.B.Ch., M.A. LAB BLOOD ADD-ON Performing Organization Address City/State/ZIP Code Phon e Number [facility] LABORATORIES - [address] [place], [place] [address] [facility] AST (Aspartate Aminotransferase) (11/30/2012 3:05 PM CDT) P athologist Signature AST, Total, S 15 8 - 43 U/L [facility] Specimen Anatomical Collection Method Collection Time Receive d Time (Source) Location / / Volume Laterality 11/30/2012 3:05 PM 3 3:05 CDT PM CDT Marisol Van, Gregory.Ch., Flaca.Ch., M.A. LAB BLOOD ADD-ON Performing Organization Address City/[facility]/ZIP Code Phon e Number [facility] LABORATORIES - [address] [place], [place] [address] [facility] GGT (Gamma-Glutamyltransferase) (11/30/2012 3:05 PM CDT) Component Value Ref Test Analysis Performed At Patholo gist Range Method Time Signature Gamma 22 6 - 29 [facility] Glutamyltransferase U/L LABORATORI ES - (GGT), S [facility] Specimen Anatomical Collection Method Collection Time Receive d Time (Source) Location / / Volume Laterality 11/30/2012 3:05 PM 3 3:05 CDT PM CDT Marisol Van, B.Ch., Gregory.Deb.Ch., M.A. LAB BLOOD ADD-ON Performing Organization Address City/[facility]/ZIP Code Phon e Number [facility]IES - [address] [place], [place] [address] [facility] Electrolyte (Chem 4) Panel (11/30/2012 6:21 AM CDT) Analysis Performed At Patho logist Time Signature Chloride, S 102 100 - 108 [facility] MMOL/L LABORATORIES - [facility] HX Bicarbonate, 24 22 - 29 [facility] P/S MMOL/L LABORATORIES - [facility] eGFR-Black/Afri >60 >60 [facility] can Austrian ML/MIN/BSA LABORATORIES - [facility] BUN (Blood Urea 7 6 - 21 [facility] Nitrogen), S MG/DL LABORATORIES - [facility] Anion Gap 14 7 - 15 [facility] - [facility] Glucose, S 79 70 - 140 [facility] MG/DL LABORATORIES - [facility] Sodium, S 140 135 - 145 [facility] MMOL/L LABORATORIES - [facility] Potassium, S 3.8 3.6 - 5.2 [facility] MMOL/L LABORATORIES - [facility] Creatinine 0.8 0.6 - 1.1 [facility] MG/DL LABORATORIES - [facility] eGFR >60 >60 [facility] Non-Black/Afric ML/MIN/BSA LABORATORIES - an Austrian [facility] Specimen Anatomical Collection Method Collection Time Receive d Time (Source) Location / / Volume Laterality 11/30/2012 6:21 AM 3 6:21 CDT AM CDT Semaj Keith M.D. LAB BLOOD ADD-ON Performing Organization Address City/State/ZIP Code Phon e Number [facility]ORATORIES - [address] [place], [place] [address] [facility]) (ABNORMAL) CBC with Differential (11/30/2012 6:21 AM CDT) [facility] gist Method Time Signature Hemoglobin 12.5 12.0 - [facility] 15.5 G/DL LABORATORIES - [facility] Hematocrit 36.8 34.9 - [facility] 44.5 % LABORATORIES - [facility] Erythrocytes 4.10 3.90 - [facility] 5.03 LABORATORIES - X10(12)/L [facility] MCV 89.8 81.6 - [facility] 98.3 FL LABORATORIES - [facility] Leukocytes 13.4 (H) 3.5 - [facility] 10.5 LABORATORIES - X10(9)/L [facility] Neutrophils 9.92 (H) 1.70 - [facility] 7.00 LABORATORIES - X10(9)/L [facility] Lymphocytes 2.63 0.90 - [facility] 2.90 LABORATORIES - X10(9)/L [facility] Monocytes 0.62 0.30 - [facility] 0.90 LABORATORIES - X10(9)/L [facility] Eosinophils 0.18 0.05 - [facility] 0.50 LABORATORIES - X10(9)/L [facility] Basophils 0.03 0.00 - [facility] 0.30 LABORATORIES - X10(9)/L [facility]) RBC Distrib 13.3 11.9 - [facility] Width 15.5 % LABORATORIES - [facility] Platelet Count 230 150 - 450 [facility] X10(9)/L LABORATORIES - [facility]) Specimen Anatomical Collection Method Collection Time Receive d Time (Source) Location / / Volume Laterality 11/30/2012 6:21 AM 3 6:21 CDT AM CDT Semaj Keith M.D. LAB BLOOD ADD-ON Performing Organization Address City/[facility]/ZIP Code Phon e Number [facility] LABORATORIES - [address] [place] [phone] [facility] Thyroid Function [place] (11/30/2012 6:21 AM CDT) P athologist Signature TSH, Sensitive 3.3 0.3 - 5.0 [facility] MIU/L [facility] Specimen Anatomical Collection Method Collection Time Receive d Time (Source) Location / / Volume Laterality 11/30/2012 6:21 AM 3 6:21 CDT AM CDT Semaj Keith M.D. LAB BLOOD ADD-ON Performing Organization Address City/[facility] Phon e Number [facility] LABORATORIES - [address] [place] [phone] [facility] Drug Abuse Survey, Urine (11/30/2012 4:31 AM CDT) Patholo gist Method Time Signature Alcohol Negative Cutoff: [facility] 30 MG/DL [facility] Amphetamines, U Negative Cutoff: [facility] 500 NG/ML [facility] Cocaine, Screen, Negative Cutoff: [facility] U 150 NG/ML [facility] Opiates Negative Cutoff: [facility] 300 NG/ML [facility] Barbiturates Negative Cutoff: [facility] Screen 200 NG/ML [facility] Benzodiazepines, Negative Cutoff: [facility] U 200 NG/ML [facility] Phencyclidine Negative Cutoff: [facility] 25 NG/ML [facility] Tetrahydrocannabi Negative Cutoff: [facility] nol, U 20 NG/ML [facility] Comment: The drugs listed above are detected by alfonzo downey. ??Call the lab to initiate ? confirmatory testing if needed. ??Specim ens are retained in the laboratory for ? two weeks. ??This test is not intended f or use in employment-related testing. ? Specimen Anatomical Collection Method Collection Time Receive d Time (Source) Location / / Volume Laterality 11/30/2012 4:31 AM 3 4:31 CDT AM CDT Historical Provider LAB URINE ORDERABLES Performing Organization Address City/[facility] Phon e Number [facility]ORATORIES - [address] [place] [phone] [facility] Adulterants Survey, Urine (11/30/2012 4:31 AM CDT) [facility] Method Time Signature pH 7.2 [facility] Oxidants Negative [facility] Creatinine, U 12.5 MG/DL [facility] (w/ADULT) [facility] Comment: Specimen unusually dilute. Specific [place] 1.003 [facility] L [facility] Specimen Anatomical Collection Method Collection Time Receive d Time (Source) Location / / Volume Laterality 11/30/2012 4:31 AM 3 4:31 CDT AM CDT Historical Provider LAB URINE ORDERABLES Performing Organization Address City/[facility] Phon e Number [facility]IES - [address] [place] [phone] [facility]) documented in this encounter Visit Diagnoses Not on filedocumented in this encounter Additional Health Concerns Assessment Noted Time PHQ-9 Depression Total Score: 18 11/30/2012 6:15 PM CD T documented as of this encounter
--- OUTSIDE RECORDS SUMMARY | 2022-02-02 11:05 | XMS_ITS | Encounter Summary ---
:1980 Author Organization [facility] Address [address] [place] [address] Care Team Providers Name Role Phone Unavailable Primary Care Provider Unavailable Encounter Details Date Type Department Care Team Description 10/12/2011 - Hospital Encounter [facility] AUAndrew Gusman, 10/18/2011 M.D. [address] [place] [address] Social History Tobacco Use Types Packs/Day Years [...] do you attend shinto or Never 2019 quaker services? Do you [...] Reading Time Taken Comments Blood Pressure 100/62 10/18/2011 5:35 PM CDT Pulse 91 10/18/2011 5:35 PM CDT Temperature - - Respiratory Rate - - Oxygen Saturation - - Inhaled Oxygen Concentration - - Weight 67.2 kg (148 lb 2.4 oz) 10/12/2011 10:02 PM CDT Height - - Body Mass Index 23.81 04/25/2011 9:40 AM UNIT LEADER documented in this encounter Discharge Summaries Tereza Wiggins R.N. - 10/20/2011 1:09 PM CDT Discharge Medication List [facility] [address] [place] [address] Discharge Medication List Name: MARLIN PLUMMER Current Date: 10/20/2011 13:09:27 : 1980 12:00 AM Patient Address: [address] [place] [address] [place] [id number] Patient Primary Care Provider: Name: PCP, UNASSIGNED Phone: Discharge Diagnosis: Depression with Anxiety* [facility] in [place] would like to thank you for allowing us to assist you with your healthcare needs. The following includes patient education materials and information regarding your injury/illness. Medications Medication/Strength Dose Route Frequency Indications/Special Instructions/Comments citalopram (Celexa 10 mg oral tablet) 10 mg Oral once a day quetiapine (Seroquel 50 mg oral tablet) 50 mg Oral once a day predniSONE (predniSONE 10 mg oral tablet) 10 mg [...] them until youcontact your provider for clarification. Comment: Electronically Signed By: ANDREW WALL MD Signed On:18-OCT-2011 14:25:06 Source: [facility] POWERCHART Document Id: [id number] Tereza Wiggins RShashank. - 10/20/2011 1:09 PM CDT Inpatient Discharge Instructions [facility] [address] [place] [address] Patient Discharge Instructions Name: MARLIN PLUMMER Current Date: 10/20/2011 13:09:25 : 1980 12:00 AM Patient Address: [address] [place] [id number] Patient Primary Care Provider: Name: PCP, UNASSIGNED Phone: Discharge Diagnosis: Depression with Anxiety* [facility] in [place] would like to thank you for allowing us to assist you with your healthcare needs. The following includes patient education materials and information regarding your injury/illness. Comment: MARLIN PLUMMER has been given the following list of follow-up instructions, prescriptions, andpatient education materials: Follow-up Instructions With: Address: When: [phone] 10/19/2011 15:00:00 Comments: pt would benefit from consistently scheduled counsling, therapist recommmends weekly sessions, four 4 weeks followed by bi-monthly until futher assessment. With: Address: When: Dr. Watson devonte [facility], [address] [place] [id number] 11/01/2011 08:00:00 Comments: please bring an insurance card and a photo ID with you to appointment IPINEDA KRISTA ANN , have received the attached patient education materials/instructions and have verbalized understanding: Patient Signature Date/Time Provider Signature Date/Time [facility] [address] [place] [address] Name: MARLIN PLUMMER Current Date: 10/20/2011 13:09:25 Source: [facility] POWERCHART Document Id: [id number] Andrew Wall M.D. - 10/18/2011 12:00 AM CDT DISCHARGE SUMMARY Event Type: SUM Date of : 1980 DICTATED BY: Andrew Wall MD PRIMARY CARE PROVIDER: DATE OF SERVICE: 10/18/2011 IDENTIFICATION: This is a 31-year-old woman residing in [place], [place]. SIGNIFICANT FINDINGS: This is the first [facility] admission for this woman. The patient reported stressors included having 3 young children. She reported intermittent sleep difficulties, anergia, lack of motivation, intermittent appetite, difficulties, higher levels of anxiety, feelings of hopeless helpless, guilt, and worthlessness, and also suicidal thoughts. She also reported a sense that something bad was going to happen to her. The patient was seen in the emergency department, evaluated, and referred for inpatient psychiatric care. DIAGNOSTICS: Electrocardiogram shows sinus bradycardia with a short DE; otherwise, normal electrocardiogram. Fasting glucose was 83 mg/dL. Lipid panel showed cholesterol 150, triglycerides 84, HDL cholesterol 63, LDL was 70, cholesterol/HDL ratio 2, LDL/HDL 1, and TSH 2.3 mIU/L. Patient did undergo psychological inventory with JEYSON. Results were consistent major depression, recurrent, moderate; anxiety disorder, not otherwise specified; nicotine dependence; PTSD, provisional; rule out: substance-induced mood effect from prescription medications; Borderline traits and features, rule out disorder. HOSPITAL COURSE: During the patient's stay, the patient's citalopram dose was decreased to 30 mg by mouth daily. She was started on Seroquel 50 mg at bedtime by Dr. Carmen. Patient's clonazepam medication was discontinued by her request. Patient participated actively in educational groups, Occupational Therapy groups, and also cognitive behavioral therapy. Issues in regards to her diagnoses were addressed. Condition was stabilized, and she was discharged at her request when her hold . CONDITION AT DISCHARGE: Improved. Patient's primary care provider is unassigned. The patient will be seen by [facility] and Dr. Shirley Tucker. DISCHARGE MEDICATIONS: 1. Include citalopram 10 mg orally once a day. 2. Quetiapine 50 mg orally once a day. 3. Prednisone 10 mg orally once a day. 4. Lyrica 200 mg orally 3 times a day. 5. Hyomax XR 0.375 mg orally every 12 hours as needed for abdominal pain. 6. Pantoprazole 40 mg orally 2 times a day. 7. Mirena 1 each. 8. Flexeril 10 mg orally once a day. 9. Zolpidem 5 mg orally once a day at bedtime as needed for insomnia. 10. Tylenol 500 mg orally 2 times a day. 11. Tramadol 100 mg orally 2 times daily with Tylenol. 12. Lorazepam 1 mg orally every 6 hours as needed for anxiety. DISCHARGE DIAGNOSES: [place] 1: Major depressive disorder, recurrent. Anxiety disorder, not otherwise specified. Nicotine dependence. Rule out: Substance-induced mood disorder (from prescription medications). [place] 2: Borderline personality traits and features. [place] 3: Fibromyalgia. Rheumatoid arthritis. [place] 4: Severity of psychosocial stressors: Family; marital; parenting; health concerns. [place] 5: Current Global assessment of functionin. DE:corona cc Electronically Signed By: ANDREW WALL MD On: 10/23/2011 09:19 AM Source: [facility] AMCDICTAPHONESYS Document Id: [id number] Sascha Vizcarra RSarahN. - 10/12/2011 8:57 PM CDT ED Discharge Instructions [place] [address] [place] [address] Name: MARLIN PLUMMER Date of : 1980 12:00 AM Visit Date: 10/12/2011 7:16 PM Address: [place] [id number] Primary Care Provider: PCP, UNASSIGNED IMPORTANT: [facility] in [place] would like to thank you for allowing us to assist youwith your healthcare needs. The following includes patient education materials and information regarding your injury/illness. Follow-Up Instructions: Patient Education Materials: ED Tests and Procedures: Order Status Discharge Prescriptions & Home Medications: Medication/Strength Dose Route Frequency Indications/Special Instructions/Comments spironolactone (spironolactone 25 mg oral tablet) 25 mg Oral two times a day pregabalin (Lyrica 100 mg oral [...] every 6 hours as needed for Anxiety Comment: Attention: If you have any medications at home that are not on this list, DO NOT take them until youcontact your provider for clarification. Medication Reconciliation: Reconciliation is a process of identifying the most accurate list of all medications a patient is taking - including name, dosage, frequency, and route - and using this list to provide to the patient information about how to take those medications. MARLIN PLUMMER or designee has reviewed the home medications you have listed with us. Review the following instructions: You have NOT received any prescriptions and you have told us you are not currently taking any home medications You have NOT received any prescriptions. You have been provided a discharge medications list and you may CONTINUE taking your medications as previously prescribed by your regular providers. You have received the listed prescriptions and BEGIN all listed prescriptions as directed. Since you have listed no home medications, please check with your family doctor if you are taking any other medications. You have received the listed prescriptions and BEGIN all listed prescriptions as directed. Youhave been provided a discharge medications list and you may CONTINUE all home medications as previously prescribed by your regular providers. You have received the listed prescriptions and BEGIN all listed prescriptions as directed. Youhave been provided a discharge medications list. The following CHANGES have been made to your medication list; Otherwise, CONTINUE all home medications as previously prescribed by your regular provider. IMPORTANT: We examined and treated you today on an emergency basis only. This was not a substitute for, or an effort to provide, complete medical care. In most cases, you must let your doctor check youagain. Tell your doctor about any new or lasting problems. We cannot recognize and treat all injuries or illnesses in one Emergency Department visit. If you had special tests, such as EKG's or X- rays, we will review them again within 24 hours. We will call you if there are any new suggestions. Please follow the instructions above carefully. If you are a patient that is being discharged from the Emergency Department after receiving narcotics or other medications that may impair your judgment you may be a risk to yourself or others if you operate a motor vehicle. We recommend that you arrange a ride home with a responsible green party. PINEDA Garvey KRISTA ANN , or responsible green party have received this information and my questions have been answered. I have discussed any challenges I see with this plan with the nurse or physician. Patient Signature or Responsible Constitution Party/Relationship Date/Time Provider Signature Date/Time Medication Reconciliation: Reconciliation is a process of identifying the most accurate list of all medications a patient is taking - including name, dosage, frequency, and route - and using this list to provide to the patient information about how to take those medications. MARLIN PLUMMER or mónica has reviewed the home medications you have listed with us. Review the following instructions: You have NOT received any prescriptions and you have told us you are not currently taking any home medications You have NOT received any prescriptions. You have been provided a discharge medications list and you may CONTINUE taking your medications as previously prescribed by your regular providers. You have received the listed prescriptions and BEGIN all listed prescriptions as directed. Since you have listed no home medications, please check with your family doctor if you are taking any other medications. You have received the listed prescriptions and BEGIN all listed prescriptions as directed. Youhave been provided a discharge medications list and you may CONTINUE all home medications as previously prescribed by your regular providers. You have received the listed prescriptions and BEGIN all listed prescriptions as directed. Youhave been provided a discharge medications list. The following CHANGES have been made to your medication list; Otherwise, CONTINUE all home medications as previously prescribed by your regular provider. IMPORTANT: We examined and treated you today on an emergency basis only. This was not a substitute for, or an effort to provide, complete medical care. In most cases, you must let your doctor check youagain. Tell your doctor about any new or lasting problems. We cannot recognize and treat all injuries or illnesses in one Emergency Department visit. If you had special tests, such as EKG's or X- rays, we will review them again within 24 hours. We will call you if there are any new suggestions. Please follow the instructions above carefully. If you are a patient that is being discharged from the Emergency Department after receiving narcotics or other medications that may impair your judgment you may be a risk to yourself or others if you operate a motor vehicle. We recommend that you arrange a ride home with a responsible green party. I, MARLIN PLUMMER , or responsible green party have received this information and my questions have been answered. I have discussed any challenges I see with this plan with the nurse or physician. Patient Signature or Responsible Constitution Party/Relationship Date/Time Provider Signature Date/Time Source: [facility]vas Document Id: [id number] Sascha Vizcarra R.N. - 10/12/2011 8:57 PM CDT ED Depart Summary [facility] Emergency Department / Urgent Care Clinical Discharge Summary PERSON INFORMATION Name MARLIN PLUMMER Age 31 Years 1980 12:00 AM Sex Female Language Khmer PCP PCP, UNASSIGNED Marital Status N [id number] Visit Id Visit Reason direct admit Specialty Enc Type Emergency Med Service Emergency Medicine Referred by Track Group [facility] ED/UC Discharge Tracking Id [id number] Checkout 10/12/2011 8:57 PM Checkin 10/12/2011 7:16 PM Acuity Dispo Type Admitted as Inpatient to this Hospital Arrival 10/12/2011 7:16 PM Reg Status Complete LOS 000 01:41 Address: [facility] [address] [place] [phone] Comment: PROVIDER INFORMATION Provider Role Provider Contact Time DIAGNOSIS Comment: PATIENT EDUCATION INFORMATION Instructions: Follow up: Source: [facility] Document Id: [id number] documented in this encounter Progress Notes Rox Carr - 10/18/2011 1:58 PM CDT WELLNESS PT DID NOT ATTEND SESSION SHE WAS WORKING ON FINAL PSYCH INVENTORY PRIOR TO DC TODAY. Electronically Signed By: ROX CARR On: 10/18/2011 01:59 PM Source: [facility] Document Id: [id number] Conversion, Historical Provider Ser - 10/18/2011 1:51 PM CDT CBT GROUP Reviewed Cognitive Behavioral Therapy (CBT): cognitive distortions and schemas. Met goal by identifying distorted thoughts and schemas. Actively participated in group. Demonstrated a very pleasant attitude. Electronically Signed By: KIM MUHAMMAD PSY.D., LP On: 10/18/2011 01:51 PM Source: [facility] Document Id: [id number] Desirae Templeton O.T. - 10/18/2011 1:43 PM CDT OT Daily Note OT Daily Note Entered On: 10/18/2011 13:44 CDT Performed On: 10/18/2011 13:43 CDT by DESIRAE TEMPLETON OTR General Info Pain Symptoms : No DESIRAE TEMPLETON OTR - 10/18/2011 13:43 CDT Treatment OT Treatment Response : Patient declined group. Stating I feel overwhelmed and I plan on laying down and meditate. DESIRAE TEMPLETON OTR - 10/18/2011 13:43 CDT OT Charge Charges - OT : Charges Not Appropriate DESIRAE TEMPLETON OTR - 10/18/2011 13:43 CDT Source: [facility] Document Id: [id number] Desirae Templeton O.T. - 10/18/2011 1:43 PM CDT OT Discharge OT Discharge Entered On: 10/18/2011 13:45 CDT Performed On: 10/18/2011 13:43 CDT by DESIRAE TEMPLETON OTR Goals Review OT Discharge Status : Patient was consistent with attending OT Life Management Skill group. OT goalsmet. Patient discharged home. TEMPLETON DESIRAE Dominguez OTR - 10/18/2011 13:43 CDT General Info Pain Symptoms : No DESIRAE TEMPLETON OTR - 10/18/2011 13:43 CDT OT Charge Charges - OT : Charges Not Appropriate DESIRAE TEMPLETON OTR - 10/18/2011 13:43 CDT Source: [facility] Document Id: [id number] Li Xiong Psy.D., L.P. - 10/18/2011 12:00 AM CDT PROGRESS/PROCEDURE NOTE Event Type: PROG Date of : 1980 DICTATED BY: Li Xiong PsyD, LP DATE: 10/18/2011 IMPRESSION/REPORT/PLAN [place] 1: Major depression, recurrent, moderate. Anxiety disorder, not otherwise specified. Nicotine dependence. [place] 2: Borderline traits and features, rule out disorder. PLAN: Continue with evaluation including cognitive measures. TESTS ADMINISTERED DURING THIS ADMISSION: JEYSON and MCMI-III. HISTORY OF PRESENT ILLNESS DATA: A total of one hour was spent on this evaluation. The patient was administered the MCMI-III in order to clarify current psychiatric concerns. Unfortunately, the patient again over reports symptoms of psychopathology. Some useful information was gathered from the profile. In particular, the patient is endorsing symptoms of depression, anxiety, as well as notable somatic complaints. Borderline pathology is also identified. The profile suggests a personality style with highly variable and unpredictable moods. She also endorses a resentful irritability and untrusting and pessimistic outlook. At times, she feels as though she is being mistreated, and feels like a victim. Testy and demanding, this woman evinces an agitated major depression. She reports a rapidly shifting mix of disparaging comments about herself. Oftentimes, she feels trapped by constraints imposed by her circumstances and is often upset by her emotions. Physical and emotional factors intermeshed in an overall somatoform kind of presentation is noted. Her current physical concerns are likely to exacerbate her characteristically brittle emotions and sullen social behavior. PHYSICAL EXAMINATION Dress and appearance are appropriate. Mood is level. Affect appropriate. Thought and speech are normal. She denies any desire to hurt herself or others. TPL:gonzalo Electronically Signed By: LI XIONG On: 10/18/2011 01:48 PM Source: [facility] AMCDICTAPHONESYS Document Id: [id number] Andrew Wall M.D. - 10/18/2011 12:00 AM CDT PROGRESS/PROCEDURE NOTE Event Type: PROG Date of : 1980 DICTATED BY: Andrew Wall MD DATE: 10/18/2011 IMPRESSION/REPORT/PLAN [place] 1: Major depressive disorder, recurrent. Anxiety disorder not otherwise specified. Nicotine dependence. Rule out substance-induced mood disorder (from prescription medications). [place] 2: Borderline personality traits and features. [place] 3: Fibromyalgia. Rheumatoid arthritis. [place] 4: Severity of psychosocial stressors: Family, marital, parenting, and health concerns. [place] 5: Current GAF: 37. PLAN: The patient will be discharged today. HISTORY OF PRESENT ILLNESS I met with the patient for supportive counseling. COUNSELING FOCUS: Hospital review in preparation for discharge. PROGRESS IN TREATMENT: The patient would like to be discharged today. CURRENT MEDICATIONS As per MAY. ALLERGIES Latex, Naprosyn, sodium. VITAL SIGNS Temperature 36.7, pulse 71, blood pressure 70/48. I met with the charge nurse and the unit enterprise resource planner. Chart material reviewed. Medication issues reviewed. Benefits and risks of the medication and potential side effects, potential for drug interactions, potential for antidepressants inducing anca, and potential for antimanic agents inducing depression were discussed at length. It was mutually decided to sustain medications currently prescribed so the patient can be seen by her outpatient psychiatrist and says she would like to leave the hospital today. Time spent greater than 30 minutes. PHYSICAL EXAMINATION MENTAL STATUS EXAMINATION: The patient is dressed in street clothes. She is alert, assertive, has good eye contact. Speaks with a clear voice. She asked appropriate questions. Denies symptoms of anca. Denies hallucinations, delusions. Denies homicidal or suicidal thoughts. She indicates she would like to pursue treatment on an outpatient basis. Mood mildly anxious. Affect reactive. I did review with her relapse and suicide prevention plan. DE:mauro cc Electronically Signed By: ANDREW WALL MD On: 10/23/2011 09:21 AM Source: [facility] AMCDICTAPHONESYS Document Id: [id number] Conversion, Historical Provider Ser - 10/17/2011 2:27 PM CDT CBT GROUP Patient attended Cognitive Behavioral Therapy (CBT) group: [facility]. Patient was activelyengaged in treatment and completed activity of identifying negative thoughts, cognitive distortions,and more realistic ways of thinking. Patient displayed a pleasant attitude. Electronically Signed By: KIM MUHAMMAD PSY.D., LP On: 10/17/2011 02:27 PM Source: [facility] POWERCHART Document Id: [id number] Christi Araujo, O.T.A. - 10/17/2011 12:14 PM CDT OT Daily Note OT Daily Note Entered On: 10/17/2011 12:16 CDT Performed On: 10/17/2011 12:14 CDT by CHRISTI ARAUJO OT Goals Review OT Goals Reviewed : Goals reviewed and unchanged CHRISTI ARAUJO OT - 10/17/2011 12:14 CDT General Info Pain Symptoms : No CHRISTI ARAUJO OT - 10/17/2011 12:14 CDT Treatment OT Group Therapy Charge : Yes OT Total Treatment Time : 60minute(s) CHRISTI ARAUJO OT - 10/17/2011 12:14 CDT Group Therapy Performance : Independent in task, Puts forth effort Response to Feeback : Listens Group Therapy Activities : Patient attended OT group this am on Stress Mmgt, active participation.Patient reports that one of her major stressors at this time are finances. DARREN ARAUJOROSENDO Dominguez OT - 10/17/2011 12:14 CDT Education OT Education Grid Topics : Occupational Therapy plan of care Individuals Taught : Other: group Barriers to Learning : None evident Teaching Method : Explanation, Group Teaching Evaluation : Verbalizes understanding VAN CHRISTI Dominguez OT - 10/17/2011 12:14 CDT OT Charge OT Number of Patient Visits : 1 Charges - OT : Charges Complete OT Visit, Inpatient : Yes OT Group Therapy Minutes : 60minute(s) OT Group Therapy Charge : Yes VANCHRISTI RENDON OT - 10/17/2011 12:14 CDT Source: [facility] Document Id: [id number] Andrew Wall M.D. - 10/17/2011 12:00 AM CDT PROGRESS/PROCEDURE NOTE Event Type: PROG Date of : 1980 DICTATED BY: Andrew Wall MD DATE: 10/17/2011 IMPRESSION/REPORT PLAN IMPRESSION: [place] 1: Major depressive disorder, recurrent. Anxiety disorder, not otherwise specified. Nicotine dependence. Rule out substance-induced mood disorder (for prescription medications). Rule out atypical bipolar disorder. [place] 2: Deferred. [place] 3: Fibromyalgia. Rheumatoid arthritis. PLAN: C4 SP. JUSTINE, monitor for recent reduction in dose of Celexa in preparation for possible switch over to Cymbalta. Sustain Seroquel as prescribed. HISTORY OF PRESENT ILLNESS I met with the patient for supportive counseling. COUNSELING FOCUS: Cognitive behavioral therapy was provided. PROGRESS IN TREATMENT: The patient was tearful today. CURRENT MEDICATIONS As per MAY. ALLERGIES 1. Latex. 2. Naprosyn. 3. Sodium. VITAL SIGNS Temperature 36.9, pulse 79, blood pressure 92/60. I met with the charge nurse and visited with the unit enterprise resource planner. Chart material reviewed. Medication issues reviewed. Time spent 25 minutes, more than 50% of which was spent on counseling or coordination of care. I did review with patient the results of Dr. Xiong's reports. A Question was raised as to the diagnoses, for example, atypical bipolar disorder versus borderline personality disorder. I did consult with Dr. Xiong and we will proceed with the JUSTINE inventory to help clarify diagnoses. Time spent 25 minutes, more than 50% of which was spent in counseling or coordination of care. PHYSICAL EXAMINATION MENTAL STATUS EXAMINATION: The patient is dressed in street clothes. She is alert, tearful; sad acknowledges feelings of frustration, anxiety and worry. DE:rme cc Electronically Signed By: ANDREW WALL MD On: 10/23/2011 09:21 AM Source: [facility] AMCDICTAPHONESYS Document Id: [id number] Conversion, Historical Provider Ser - 10/16/2011 2:32 PM CDT CBT GROUP Pt was completing wellness plan during CBT group. Electronically Signed By: KIM MUHAMMAD PSY.D., On: 10/16/2011 02:32 PM Source: [facility] POWERCHART Document Id: [id number] Conversion, Historical Provider Ser - 10/16/2011 2:02 PM CDT clinical staffing note Clinical Staffing Note In attendance: Psychiatrist: Dr. Wall Psychologist: Dr. Xiong Inpatient Therapist/Audio Visual Equipment Rental Clerk: Dr. Muhammad Wellness Practitioner: Tam Carr Occupational Therapist: Venus Templeton Nursing: Ivan Lamb Diagnosis: major depressive disorder, recurrent; anxiety disorder nos; nicotine dependence; r/o bipolar disorder; r/o substance induced mood effect (from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 [id number] documented in this encounter ED Notes Dasha Haro RSarahNSarah - 10/12/2011 8:37 PM CDT ED Triage Assessment ED Triage Assessment Entered On: 10/12/2011 20:42 CDT Performed On: 10/12/2011 20:37 CDT by DASHA HARO RN Reason For Visit Problems(Active) Depression with Anxiety* Name of Problem: Depression with Anxiety* ; Recorder: SHAMIKA KRAUS MD; Confirmation: Confirmed ; Classification: Medical ; Code: 1231 ; Contributor System: inZairChart ;Last Updated: 01/23/2011 18:32 CDT ; Life Cycle Date: 01/23/2011 ; Life Cycle Status: Active ; Responsible Provider: SHAMIKA KRAUS MD; Vocabulary: ICD-9-CM Esophageal reflux (GERD) Name of Problem: Esophageal reflux (GERD) ; Recorder: SHAMIKA KRAUS MD; Confirmation: Confirmed ; Classification: Medical ; Code: 1231 ; Contributor System: inZairChart ;Last Updated: 01/23/2011 18:32 CDT ; Life Cycle Date: 01/23/2011 ; Life Cycle Status: Active ; Responsible Provider: SHAMIKA KRAUS MD; Vocabulary: ICD-9-CM Fibromyalgia Name of Problem: Fibromyalgia ; Recorder: SHAMIKA KRAUS MD; Confirmation: Confirmed ; Classification: Medical ; Code: 1231 ; Contributor System: PowerChart ; Last Updated: 01/23/2011 18:31 CDT ; Life Cycle Date: 01/23/2011 ; Life Cycle Status: Active ; Responsible Provider: SHAMIKA KRAUS MD; Vocabulary: ICD-9-CM Juvenile rheumatoid arthritis Name of Problem: Juvenile rheumatoid arthritis ; Recorder: SHAMIKA KRAUS MD; Confirmation: Confirmed ; Classification: Medical ; Code: 1231 ; Contributor System: PowerChart ; Last Updated: 01/23/2011 18:31 CDT ; Life Cycle Date: 01/23/2011 ; Life Cycle Status: Active ; Responsible Provider: SHAMIKA KRAUS MD; Vocabulary: ICD-9-CM Raynaud's phenomenon Name of Problem: Raynaud's phenomenon ; Recorder: SHAMIKA KRAUS MD; Confirmation: Confirmed ; Classification: Medical ; Code: 1231 ; Contributor System: PowerChart ; Last Updated: 01/23/2011 18:31 CDT ; Life Cycle Date: 01/23/2011 ; Life Cycle Status: Active ; Responsible Pr ovider: SHAMIKA KRAUS MD; Vocabulary: ICD-9-CM Triage Chief Complaint Description : Pt arrive as direct admit to [facility] department. Denies need for medical screening. Pt was dressed in hospital scrubs and searched by security. Information Given By : Patient, EMS Accompanied By : EMS Mode of Arrival ED : Ambulance Track : Medical AMRYSÁNCHEZALEISHANA - 10/12/2011 20:37 CDT Pain Assessment Pain Symptoms : No KELLYBLANKASÁNCHEZ DASHA - 10/12/2011 20:37 CDT Allergy Allergies (Active) Latex Estimated Onset Date: Unspecified ; Created By: GABRIELLE ALLEN; Reaction Status: Active ; Category: Drug ; Substance: Latex ; Type: Allergy ; Severity: Mild ; Updated By: GABRIELLE ALLEN; Reviewed Date: 04/25/2011 9:33 UNIT LEADER Naproxen Sodium Estimated Onset Date: Unspecified ; Created By: GABRIELLE ALLEN; Reaction Status: Active ; Category: Drug ; Substance: Naproxen Sodium ; Type: Allergy ; Updated By: GABRIELLE ALLEN;Reviewed Date: 04/25/2011 9:33 UNIT LEADER Source: [facility] EasyQasaCHART Document Id: [id number] documented in this encounter Miscellaneous Notes Miscellaneous - Tereza Wiggins R.N. - 10/20/2011 1:09 PM CDT Inpatient Patient Education The following Patient Education Materials have been given to the patient: Patient Education Materials: No instructions were provided. No instructions were provided. Source: [facility] EasyQasaCHART Document Id: [id number] Miscellaneous - Tereza Wiggins R.N. - 10/18/2011 7:52 PM CDT Inpatient Patient Education The following Patient Education Materials have been given to the patient: Patient Education Materials: No instructions were provided. No instructions were provided. Source: [facility] Civo Document Id: [id number] Miscellaneous - Dileep Drummond R.N. - 10/18/2011 2:46 PM CDT Adult Activities of Daily Living Adult Activities of Daily Living Entered On: 10/18/2011 14:47 CDT Performed On: 10/18/2011 14:46 CDT by DILEEP DRUMMOND RN ADLs I Activity Status ADL : Up ad edmund Activity Assistance : Independent Ambulation Patient Effort : Good DILEEP DRUMMOND RN - 10/18/2011 14:46 CDT ADLs II Elimination Assistance Offered Q2H : Independent Standard Safety : ID band check, Non-Slip footwear, Rounds every 1 hour DILEEP DRUMMOND RN - 10/18/2011 14:46 CDT ADLs Adult Nutrition Feeding Assistance : Independent Breakfast : 100% Lunch : 100% STALOCH, DILEEP K RN - 10/18/2011 14:46 CDT Source: [facility] Civo Document Id: [id number] Miscellaneous - Dileep Drummond R.N. - 10/18/2011 2:45 PM CDT Inpatient Patient Education The following Patient Education Materials have been given to the patient: Patient Education Materials: No instructions were provided. No instructions were provided. [email or web address] Document Id: [id number] Miscellsherice - Andrew Wall M.D. - 10/18/2011 2:25 PM CDT Inpatient Patient Education The following Patient Education Materials have been given to the patient: Patient Education Materials: No instructions were provided. No instructions were provided. Source: [facility] Document Id: [id number] Miscellsherice - Dileep Drummond R.N. - 10/18/2011 12:49 PM CDT Inpatient Patient Education The following Patient Education Materials have been given to the patient: Patient Education Materials: No instructions were provided. No instructions were provided. [email or web address] Document Id: [id number] Miscellshreice - Dileep Drummond R.N. - 10/18/2011 12:48 PM CDT Inpatient Patient Education The following Patient Education Materials have been given to the patient: Patient Education Materials: No instructions were provided. No instructions were provided. [email or web address] Document Id: [id number] Leo Baptiste R.N. - 10/18/2011 12:07 AM CDT Adult Activities of Daily Living Adult Activities of Daily Living Entered On: 10/18/2011 0:07 CDT Performed On: 10/18/2011 0:07 CDT by LEO CORONADO RN ADLs I Activity Status ADL : Up ad edmund Activity Assistance : Independent Assistive Device : None LEO CORONADO RN - 10/18/2011 0:07 CDT ADLs II Standard Safety : ID band check, Rounds every 1 hour LEO CORONADO RN - 10/18/2011 0:07 CDT ADLs Adult Nutrition Feeding Assistance : Independent LEO CORONADO RN - 10/18/2011 0:07 CDT Source: [facility] Document Id: [id number] Leo Baptiste R.N. - 10/18/2011 12:07 AM CDT Adult Ongoing Assessment Adult Ongoing Assessment Entered On: 10/18/2011 0:07 CDT Performed On: 10/18/2011 0:07 CDT by LEO CORONADO RN Psycho/Emotional Affect/Behavior : Other: RESTING/SLEEPING Pain Symptoms : No Psycho/Emotional Detailed Assessment : Yes LEO CORONADO RN - 10/18/2011 0:07 CDT Psycho/Emotional Detailed Sleep Assessment : Slept well 6 or more consecutive hours Hours of sleep, uninterrupted : 7 LEO CORONADO RN - 10/18/2011 6:45 CDT Hendrich II Fall Risk Confusion/Disorientation Hendrich : No Depression Fall Risk Hendrich : No Altered Elimination Fall Risk Hendrich : No Dizziness/Vertigo Fall Risk Hendrich : No Gender, Male Fall Risk Hendrich : No Prescribed Antiepileptics Hendrich : No Prescribed Benzodiazepines Hendrich : No Rising From Chair Fall Risk Hendrich : Able to rise in a single movement, no loss of balance with steps Fall Risk Score Hendrich II : 0 LEO CORONADO RN - 10/18/2011 0:07 CDT [email or web address] Document Id: [id number] Malia - Faye Ward R.N. - 10/17/2011 4:59 PM CDT Adult Activities of Daily Living Adult Activities of Daily Living Entered On: 10/17/2011 16:59 CDT Performed On: 10/17/2011 16:59 CDT by FAYE WARD RN ADLs I Activity Status ADL : Ambulating in kevin Activity Assistance : Independent FAYE WARD RN - 10/17/2011 16:59 CDT ADLs II Hygiene Assistance Grid Foot Care : Independent Hair Care : Independent Oral Care : Independent Tiara Care : Independent FAYE WARD RN - 10/17/2011 16:59 CDT Standard Safety : ID band check, Night light, Non-Slip footwear, Rounds every 1 hour FAYE WARD RN - 10/17/2011 16:59 CDT ADLs Adult Nutrition Dinner : 100% FAYE WARD RN - 10/17/2011 21:56 CDT Feeding Assistance : Independent FAYE WARD RN - 10/17/2011 16:59 CDT [email or web address] Document Id: [id number] Miscellsherice - Faye Ward R.N. - 10/17/2011 4:56 PM CDT Adult Ongoing Assessment Adult Ongoing Assessment Entered On: 10/17/2011 16:59 CDT Performed On: 10/17/2011 16:56 CDT by FAYE WARD RN Respiratory Respiratory Patient Stated Symptoms : None Respirations : Unlabored Respiratory Pattern : Regular FAYE WARD RN - 10/17/2011 16:56 CDT Cardiovascular CV Patient Stated Symptoms : None FAYE WARD RN - 10/17/2011 16:56 CDT Neurological Neuro Patient Stated Symptoms : None Orientation : Oriented x 3 Level of Consciousness : Alert Gait : Steady Swallowing Difficulty/Aspiration Risk : None FAYE WARD RN - 10/17/2011 16:56 CDT Thornton Coma Eye Opening Response Nicole : Spontaneously Best Verbal Response Thornton : Oriented Best Motor Response Nicole : Obeys simple commands Nicole Coma Score : 15 FAYE WARD MATHEUS 10/17/2011 16:56 CDT Psycho/Emotional Affect/Behavior : Cooperative, Appropriate Pain Symptoms : Yes Feels Rested : Yes SYLVIA FAYE 10/17/2011 16:56 CDT Coping Grid Identifies effective strategies : Yes Uses effective strategies : Yes Reports increase in psychological comfort : Yes Indicates sense of control : Yes Stressors perceived within control : Yes Stable mood with appropriate affect : Yes Behaviors indicate use of coping mechanism : Yes Family supportive and involved in care : Yes Values/Beliefs incorporated appropriately : Yes SYLVIAFAYE RN 10/17/2011 16:56 CDT Safety Grid Vision, Hearing, Mobility Adequate to Meet Safety Needs : Yes SYLVIAFAYE 10/17/2011 16:56 CDT Pain Pain Assessment Grid Pain 1 Location : Generalized Time Pattern : Chronic Quality : Aching Aggravating Factors : Movement Alleviating Factors : Medication SYLVIAFAYE 10/17/2011 16:56 CDT FLACC Face FLACC : No particular expression or smile Legs FLACC : Normal position or relaxed Activity FLACC : Lying quietly, normal position, moves easily Cry FLACC : No cry, awake or asleep Consolabillity FLACC : Content, relaxed FLACC Pain Scale Score : 0 FAYE WARD 10/17/2011 16:56 CDT Gastrointestinal GI Patient Stated Symptoms : None SYLVIAFAYE RN 10/17/2011 16:56 CDT Nutrition Eating Difficulties : None Appetite : Good SYLVIAFAYE RN 10/17/2011 16:56 CDT Genitourinary Patient Stated Symptoms : None SYLVIAFAYE RN 10/17/2011 16:56 CDT Integumentary Integumentary Patient Stated Symptoms : None Skin Integrity : Intact SYLVIAFAYE 10/17/2011 16:56 CDT Musculoskeletal Musculoskeletal Patient Stated Symptoms : Other: PAINS FROM FIBROMYALGIA Activity Tolerance : Without distress SYLVIAFAYE 10/17/2011 16:56 CDT Hendrich II Fall Risk Confusion/Disorientation Hendrich : No Depression Fall Risk Hendrich : Yes Altered Elimination Fall Risk Hendrich : No Dizziness/Vertigo Fall Risk Hendrich : No Gender, Male Fall Risk Hendrich : No Prescribed Antiepileptics Hendrich : No Prescribed Benzodiazepines Hendrich : Yes Rising From Chair Fall Risk Hendrich : Able to rise in a single movement, no loss of balance with steps Fall Risk Score Seb II : 3 FAYE WARD RN - 10/17/2011 16:56 CDT Education General Patient Education Powergrid Topics : Medication dosage, route, scheduling, Pain Management, Plan of care Individuals Taught : Patient Barriers to Learning : None evident Teaching Method : Explanation Teaching Evaluation : Verbalizes understanding FAYE WARD RN - 10/17/2011 16:56 CDT Source: [facility] Document Id: [id number] Malia - Dileep Drummond R.N. - 10/17/2011 1:41 PM CDT Inpatient Patient Education The following Patient Education Materials have been given to the patient: Patient Education Materials: No instructions were provided. No instructions were provided. Source: [facility]vas Document Id: [id number] Malia - Rahel Jordan R.N. - 10/17/2011 5:00 AM CDT Adult Ongoing Assessment Adult Ongoing Assessment Entered On: 10/17/2011 5:00 CDT Performed On: 10/17/2011 5:00 CDT by RAHEL JORDAN RN Psycho/Emotional Pain Symptoms : No Psycho/Emotional Detailed Assessment : Yes RAHEL JORDAN RN - 10/17/2011 5:00 CDT Psycho/Emotional Detailed Sleep Assessment : Slept fairly well 4-6 consecutive hours Hours of sleep, uninterrupted : 6 RAHEL JORDAN RN - 10/17/2011 5:00 CDT Source: [facility] Document Id: [id number] Rahel Cruz R.N. - 10/17/2011 1:53 AM CDT Adult Ongoing Assessment Adult Ongoing Assessment Entered On: 10/17/2011 1:53 CDT Performed On: 10/17/2011 1:53 CDT by RAHEL JORDAN RN Respiratory Respiratory Patient Stated Symptoms : None Respirations : Unlabored RAHEL JORDAN RN - 10/17/2011 1:53 CDT Psycho/Emotional Pain Symptoms : No Psycho/Emotional Detailed Assessment : Yes RAHEL JORDAN RN - 10/17/2011 4:59 CDT Affect/Behavior : Calm, Cooperative, Appropriate RAHEL JORDAN RN - 10/17/2011 1:53 CDT Safety Grid Vision, Hearing, Mobility Adequate to Meet Safety Needs : Yes RAHEL JORDAN RN - 10/17/2011 1:53 CDT Psycho/Emotional Detailed Sleep Assessment : Slept well 6 or more consecutive hours RAHEL JORDAN RN - 10/17/2011 4:59 CDT Hendrich II Fall Risk Confusion/Disorientation Hendrich : No Depression Fall Risk Hendrich : No Altered Elimination Fall Risk Hendrich : No Dizziness/Vertigo Fall Risk Hendrich : No Gender, Male Fall Risk Hendrich : No Prescribed Antiepileptics Hendrich : No Prescribed Benzodiazepines Hendrich : Yes Rising From Chair Fall Risk Hendrich : Able to rise in a single movement, no loss of balance with steps Fall Risk Score Hendrich II : 1 RAHEL JORDAN RN - 10/17/2011 1:53 CDT Source: [facility]vas Document Id: [id number] Miscellaneous - Rahel Jordan R.N. - 10/17/2011 1:53 AM CDT Adult Activities of Daily Living Adult Activities of Daily Living Entered On: 10/17/2011 1:53 CDT Performed On: 10/17/2011 1:53 CDT by RAHEL JORDAN RN ADLs I Activity Status ADL : Up ad edmund Activity Assistance : Independent Assistive Device : None RAHEL JORDAN RN - 10/17/2011 1:53 CDT ADLs II Standard Safety : Rounds every 1 hour RAHEL JORDAN RN - 10/17/2011 1:53 CDT [email or web address] Document Id: [id number] Misminerva - Faye Ward R.N. - 10/16/2011 10:00 PM CDT Adult Activities of Daily Living Adult Activities of Daily Living Entered On: 10/16/2011 22:14 CDT Performed On: 10/16/2011 22:00 CDT by FAYE WARD RN ADLs I Activity Status ADL : Ambulating in kevin Activity Assistance : Independent FAYE WARD RN - 10/16/2011 22:14 CDT ADLs II Hygiene Assistance Grid Foot Care : Independent Hair Care : Independent Oral Care : Independent Tiara Care : Independent Shower : Independent FAYE WARD RN - 10/16/2011 22:14 CDT Standard Safety : ID band check, Night light, Non-Slip footwear, Rounds every 1 hour FAYE WARD RN - 10/16/2011 22:14 CDT ADLs Adult Nutrition Feeding Assistance : Independent Dinner : 100% FAYE WARD RN - 10/16/2011 22:14 CDT [email or web address] Document Id: [id number] Sharicellsherice - Faye Ward R.N. - 10/16/2011 10:00 PM CDT Adult Ongoing Assessment Adult Ongoing Assessment Entered On: 10/16/2011 22:16 CDT Performed On: 10/16/2011 22:00 CDT by FAYE WARD RN Respiratory Respiratory Patient Stated Symptoms : None Respirations : Unlabored Respiratory Pattern : Regular FAYE WARD RN - 10/16/2011 22:14 CDT Cardiovascular CV Patient Stated Symptoms : None FAYE WARD RN - 10/16/2011 22:14 CDT Neurological Neuro Patient Stated Symptoms : None Orientation : Oriented x 3 Level of Consciousness : Alert Gait : Steady Swallowing Difficulty/Aspiration Risk : None FAYE WARD 10/16/2011 22:14 CDT Nicole Coma Eye Opening Response Thornton : Spontaneously Best Verbal Response Thornton : Oriented Best Motor Response Nicole : Obeys simple commands Nicole Coma Score : 15 FAYE WARD 10/16/2011 22:14 CDT Psycho/Emotional Affect/Behavior : Cooperative Pain Symptoms : Yes Feels Rested : No FAYE WARD 10/16/2011 22:14 CDT Coping Grid Identifies effective strategies : Yes Uses effective strategies : Yes Reports increase in psychological comfort : Yes Indicates sense of control : Yes Stressors perceived within control : Yes Stable mood with appropriate affect : Yes Behaviors indicate use of coping mechanism : Yes Family supportive and involved in care : Yes Values/Beliefs incorporated appropriately : Yes FAYE WARD 10/16/2011 22:14 CDT Safety Grid Vision, Hearing, Mobility Adequate to Meet Safety Needs : Yes FAYE WARD 10/16/2011 22:14 CDT Pain Pain Assessment Grid Pain 1 Location : Other: GENERALIZED Intensity : 6 Time Pattern : Chronic FAYE WARD 10/16/2011 22:14 CDT FLACC Face FLACC : No particular expression or smile Legs FLACC : Normal position or relaxed Activity FLACC : Lying quietly, normal position, moves easily Cry FLACC : No cry, awake or asleep Consolabillity FLACC : Content, relaxed FLACC Pain Scale Score : 0 FAYE WARD 10/16/2011 22:14 CDT Gastrointestinal GI Patient Stated Symptoms : None FAYE WARD 10/16/2011 22:14 CDT Nutrition Eating Difficulties : None Appetite : Good FAEY WARD 10/16/2011 22:14 CDT Genitourinary Patient Stated Symptoms : None FAYE WARD 10/16/2011 22:14 CDT Integumentary Integumentary Patient Stated Symptoms : None Skin Integrity : Intact FAYE WARD 10/16/2011 22:14 CDT Musculoskeletal Musculoskeletal Patient Stated Symptoms : Joint stiffness Activity Tolerance : Without distress FAYE WARD 10/16/2011 22:14 CDT Hendrich II Fall Risk Confusion/Disorientation Hendrich : No Depression Fall Risk Hendrich : Yes Altered Elimination Fall Risk Hendrich : No Dizziness/Vertigo Fall Risk Hendrich : No Gender, Male Fall Risk Hendrich : No Prescribed Antiepileptics Hendrich : No Prescribed Benzodiazepines Hendrich : Yes Rising From Chair Fall Risk Hendrich : Able to rise in a single movement, no loss of balance with steps Fall Risk Score Seb II : 3 FAYE WARD RN - 10/16/2011 22:14 CDT Education General Patient Education Powergrid Topics : Medication dosage, route, scheduling, Plan of care Individuals Taught : Patient Barriers to Learning : None evident Teaching Method : Explanation Teaching Evaluation : Verbalizes understanding FAYE WARD RN - 10/16/2011 22:14 CDT Source: [facility] Civo Document Id: [id number] Malia - Patricia Kaye R.N. - 10/16/2011 9:34 AM CDT Adult Activities of Daily Living Adult Activities of Daily Living Entered On: 10/16/2011 9:35 CDT Performed On: 10/16/2011 9:34 CDT by PATRICIA KAYE RN ADLs I Activity Status ADL : Up ad edmund Activity Assistance : Independent Assistive Device : None PATRICIA KAYE RN - 10/16/2011 9:34 CDT ADLs II Standard Safety : ID band check, Non-Slip footwear, Rounds every 1 hour, Other: see rounding sheet PATRICIA KAYE RN - 10/16/2011 9:34 CDT ADLs Adult Nutrition Lunch : 100% PATRICIA KAYE RN - 10/16/2011 13:17 CDT Feeding Assistance : Independent Breakfast : 100% PATRICIA KAYE RN - 10/16/2011 9:34 CDT [email or web address] Document Id: [id number] Malia - Patricia Kaye R.N. - 10/16/2011 9:32 AM CDT Adult Ongoing Assessment Adult Ongoing Assessment Entered On: 10/16/2011 9:34 CDT Performed On: 10/16/2011 9:32 CDT by APTRICIA KAYE RN Psycho/Emotional Affect/Behavior : Cooperative, Agitated Pain Symptoms : Yes Feels Rested : No PATRICIA KAYE RN - 10/16/2011 9:32 CDT Coping Grid Identifies effective strategies : Yes Uses effective strategies : Yes Reports increase in psychological comfort : Yes Indicates sense of control : Yes Stressors perceived within control : No Stable mood with appropriate affect : Yes Behaviors indicate use of coping mechanism : Yes Values/Beliefs incorporated appropriately : Yes PATRICIA KAYE RN - 10/16/2011 9:32 CDT Safety Grid Vision, Hearing, Mobility Adequate to Meet Safety Needs : Yes PATRICIA KAYE RN - 10/16/2011 9:32 CDT Psycho/Emotional Detailed Assessment : Yes PATRICIA KAYE RN - 10/16/2011 9:32 CDT Psycho/Emotional Detailed Hallucinations Present : None Orientation : Oriented x 3 Participates in Age-specific Activities : Yes Cognition : Cooperative with 1:1 Behavior & General Appearance : Social with peers and staff, interacts appropriately, ADLs self-initiated Behavior/Interaction with Peers/Staff Appropriate : Yes Thought Process Intact : Yes PATRICIA KAYE RN - 10/16/2011 9:32 CDT Suicide Risk Re-Assessment Ongoing Behaviors/Threats of Harm to Self : No Behaviors/Threats of Harm to Others : No Do you have a plan for suicide? : No PATRICIA KAYE RN - 10/16/2011 9:32 CDT Pain Pain Assessment Grid Pain 1 Location : Lower back Intensity : 7 Alleviating Factors : Medication, Rest PATRICIA KAYE RN - 10/16/2011 9:32 CDT Boogie Sensory Perception Boogie : No impairment Moisture Boogie : Rarely moist Activity Boogie : Walks frequently Mobility Boogie : No limitations Nutrition Boogie : Excellent Friction and Shear Boogie : No apparent problem Boogie Score : 23 PATRICIA KAYE RN - 10/16/2011 9:32 CDT Hendrich II Fall Risk Confusion/Disorientation Hendrich : No Depression Fall Risk Hendrich : Yes Altered Elimination Fall Risk Hendrich : No Dizziness/Vertigo Fall Risk Hendrich : No Gender, Male Fall Risk Hendrich : No Prescribed Antiepileptics Hendrich : No Prescribed Benzodiazepines Hendrich : No Rising From Chair Fall Risk Hendrich : Able to rise in a single movement, no loss of balance with steps Fall Risk Score Seb II : 2 PATRICIA KAYE RN - 10/16/2011 9:32 CDT Education General Patient Education Powergrid Topics : Other: Take 5 (Comment: Reviewed plan of care for this shift. [PATRICIA KAYE RN - 10/16/2011 9:32 CDT] ) Individuals Taught : Patient Barriers to Learning : None evident Teaching Method : Explanation Teaching Evaluation : Verbalizes understanding PATRICIA KAYE RN - 10/16/2011 9:32 CDT Source: [facility] Civo Document Id: [id number] Malia - Wali Plummer RSarahNSarah - 10/16/2011 12:14 AM CDT Adult Activities of Daily Living Adult Activities of Daily Living Entered On: 10/16/2011 0:14 CDT Performed On: 10/16/2011 0:14 CDT by WALI PLUMMER RN ADLs I Patient Position : Lying on left side Activity Status ADL : Up ad edmund Activity Assistance : Independent Assistive Device : None WALI PLUMMER RN - 10/16/2011 0:14 CDT ADLs II Elimination Assistance Offered Q2H : Independent Standard Safety : Bed in low position, Rounds every 1 hour WALI PLUMMER RN - 10/16/2011 0:14 CDT ADLs Adult Nutrition Feeding Assistance : Independent WALI PLUMMER RN - 10/16/2011 0:14 CDT Source: [facility] Civo Document Id: [id number] Malia - Wali Plummer RSarahNSarah - 10/16/2011 12:13 AM CDT Adult Ongoing Assessment Adult Ongoing Assessment Entered On: 10/16/2011 0:14 CDT Performed On: 10/16/2011 0:13 CDT by WALI PLUMMER RN Psycho/Emotional Affect/Behavior : Other: Sleeping Pain Symptoms : No WALI PLUMMER RN - 10/16/2011 0:13 CDT Safety Grid Vision, Hearing, Mobility Adequate to Meet Safety Needs : Yes WALI PLUMMER RN - 10/16/2011 0:13 CDT Boogie Sensory Perception Boogie : No impairment Moisture Boogie : Rarely moist Activity Boogie : Walks frequently Mobility Boogie : No limitations Nutrition Boogie : Excellent Friction and Shear Boogie : No apparent problem Boogie Score : 23 WALI PLUMMER RN - 10/16/2011 0:13 CDT Hendrich II Fall Risk Confusion/Disorientation Hendrich : No Depression Fall Risk Hendrich : No Altered Elimination Fall Risk Hendrich : No Dizziness/Vertigo Fall Risk Hendrich : No Gender, Male Fall Risk Hendrich : No Prescribed Antiepileptics Hendrich : No Prescribed Benzodiazepines Hendrich : No Rising From Chair Fall Risk Hendrich : Able to rise in a single movement, no loss of balance with steps Fall Risk Score Hendrich II : 0 WALI PLUMMER RN - 10/16/2011 0:13 CDT Source: [employer] Document Id: [id number] Miscellaneous - Johanna Teixeira RHarvinder - 10/15/2011 7:49 PM CDT Adult Activities of Daily Living Adult Activities of Daily Living Entered On: 10/15/2011 19:52 CDT Performed On: 10/15/2011 19:49 CDT by JOHANNA MANZANO RN ADLs I Activity Status ADL : Up ad edmund Activity Assistance : Independent Assistive Device : None Ambulation Patient Effort : Good JOHANNA MANZANO RN - 10/15/2011 19:49 CDT ADLs II Elimination Assistance Offered Q2H : Independent Standard Safety : ID band check, Non-Slip footwear, Rounds every 1 hour JOHANNA MANZANO RN - 10/15/2011 19:49 CDT ADLs Adult Nutrition Dinner : 100% Evening Snack : 100% JOHANNA MANZANO RN - 10/15/2011 19:49 CDT Source: [facility] EasyQasaCHART Document Id: [id number] Miscellaneous - Johanna Teixeira R.N. - 10/15/2011 4:22 PM CDT Adult Ongoing Assessment Adult Ongoing Assessment Entered On: 10/15/2011 16:22 CDT Performed On: 10/15/2011 16:22 CDT by JOHANNA MANZANO RN Psycho/Emotional Affect/Behavior : Calm, Cooperative, Appropriate Pain Symptoms : No JOHANNA MANZANO RN - 10/15/2011 16:22 CDT Coping Grid Identifies effective strategies : Yes Uses effective strategies : Yes Reports increase in psychological comfort : Yes Indicates sense of control : Yes Stressors perceived within control : Yes Stable mood with appropriate affect : Yes Behaviors indicate use of coping mechanism : Yes Family supportive and involved in care : Yes Values/Beliefs incorporated appropriately : Yes JOHANNA MANZANO RN - 10/15/2011 16:22 CDT Safety Grid Vision, Hearing, Mobility Adequate to Meet Safety Needs : Yes JOHANNA MANZANO RN - 10/15/2011 16:22 CDT Psycho/Emotional Detailed Assessment : Yes JOHANNA MANZANO RN - 10/15/2011 16:22 CDT Psycho/Emotional Detailed Hallucinations Present : None Orientation : Oriented x 3, Appropriate for age JOHANNA MANZANO RN - 10/15/2011 16:22 CDT Suicide Risk Re-Assessment Ongoing Behaviors/Threats of Harm to Self : No Behaviors/Threats of Harm to Others : No Do you have a plan for suicide? : No JOHANNA MANZANO RN - 10/15/2011 16:22 CDT Nutrition Eating Difficulties : None Appetite : Excellent Nutrition Risk Factors by History Adult : None JOHANNA MANZANO RN - 10/15/2011 16:22 CDT Hendrich II Fall Risk Confusion/Disorientation Hendrich : No Depression Fall Risk Hendrich : No Altered Elimination Fall Risk Hendrich : No Dizziness/Vertigo Fall Risk Hendrich : No Gender, Male Fall Risk Hendrich : No Prescribed Antiepileptics Hendrich : No Prescribed Benzodiazepines Hendrich : No Rising From Chair Fall Risk Hendrich : Able to rise in a single movement, no loss of balance with steps Fall Risk Score Hendrich II : 0 JOHANNA MANZANO RN - 10/15/2011 16:22 CDT Education General Patient Education Powergrid Topics : Other: Take 5 (Comment: No questions or concerns at this time. [JOHANNA MANZANO RN - 10/15/2011 16:22 CDT] ) JOHANNA MANZANO RN - 10/15/2011 16:22 CDT [email or web address] Document Id: [id number] Malia - Beth York R.N. - 10/15/2011 12:18 AM CDT Adult Activities of Daily Living Adult Activities of Daily Living Entered On: 10/15/2011 0:18 CDT Performed On: 10/15/2011 0:18 CDT by BETH ENG RN ADLs I Activity Status ADL : Up ad edmund, Other: sleeping Activity Assistance : Independent Assistive Device : None BETH ENG RN - 10/15/2011 0:18 CDT ADLs II Standard Safety : Bed in low position, ID band check, Non-Slip footwear, Rounds every 1 hour BETH ENG RN - 10/15/2011 0:18 CDT ADLs Adult Nutrition Feeding Assistance : Independent BETH ENG RN - 10/15/2011 0:18 CDT Source: [facility] Civo Document Id: [id number] Malia - Beth York R.N. - 10/15/2011 12:18 AM CDT Adult Ongoing Assessment Adult Ongoing Assessment Entered On: 10/15/2011 0:20 CDT Performed On: 10/15/2011 0:18 CDT by BETH ENG RN Psycho/Emotional Psycho/Emotional Detailed Assessment : Yes BETH ENG RN - 10/15/2011 5:55 CDT Affect/Behavior : Calm, Cooperative, Other: sleeping Pain Symptoms : No BETH ENG RN - 10/15/2011 0:18 CDT Safety Grid Vision, Hearing, Mobility Adequate to Meet Safety Needs : Yes BETH ENG RN - 10/15/2011 0:18 CDT Psycho/Emotional Detailed Sleep Assessment : Slept well 6 or more consecutive hours Hours of sleep, uninterrupted : 7 BETH ENG RN - 10/15/2011 5:55 CDT Hendrich II Fall Risk Confusion/Disorientation Hendrich : No Depression Fall Risk Hendrich : No Altered Elimination Fall Risk Hendrich : No Dizziness/Vertigo Fall Risk Hendrich : No Gender, Male Fall Risk Hendrich : No Prescribed Antiepileptics Hendrich : No Prescribed Benzodiazepines Hendrich : Yes Rising From Chair Fall Risk Hendrich : Able to rise in a single movement, no loss of balance with steps Fall Risk Score Hendrich II : 1 BETH ENG RN - 10/15/2011 0:18 CDT Source: [employer] Document Id: [id number] Miscellaneous - Enriqueta Greenberg R.N. - 10/14/2011 7:22 PM CDT Adult Ongoing Assessment Adult Ongoing Assessment Entered On: 10/14/2011 19:23 CDT Performed On: 10/14/2011 19:22 CDT by ENRIQUETA GREENBERG RN Neurological Neuro Patient Stated Symptoms : None Orientation : Oriented x 3 Level of Consciousness : Alert Gait : Steady Last Well Time Known : Not applicable ENRIQUETA GREENBERG RN - 10/14/2011 19:22 CDT Psycho/Emotional Affect/Behavior : Calm, Cooperative, Appropriate Pain Symptoms : Yes ENRIQUETA GREENBERG RN - 10/14/2011 19:22 CDT Coping Grid Identifies effective strategies : Yes Uses effective strategies : Yes Reports increase in psychological comfort : Yes Indicates sense of control : Yes Stressors perceived within control : Yes Stable mood with appropriate affect : Yes Behaviors indicate use of coping mechanism : Yes Family supportive and involved in care : Yes Values/Beliefs incorporated appropriately : Yes ENRIQUETA GREENBERG RN 10/14/2011 19:22 CDT Safety Grid Vision, Hearing, Mobility Adequate to Meet Safety Needs : Yes ENRIQUETA GREENBERG RN - 10/14/2011 19:22 CDT Psycho/Emotional Detailed Assessment : Yes ENRIQUETA GREENBERG RN - 10/14/2011 19:22 CDT Psycho/Emotional Detailed Hallucinations Present : None Orientation : Oriented x 3 Participates in Age-specific Activities : Yes Cognition : Motivated for treatment, Cooperative with 1:1 Behavior & General Appearance : Appropriate for situation, Social with peers and staff, interacts appropriately, ADLs self-initiated Behavior/Interaction with Peers/Staff Appropriate : Yes Thought Process Intact : Yes ENRIQUETA GREENBERG RN - 10/14/2011 19:22 CDT Suicide Risk Re-Assessment Ongoing Behaviors/Threats of Harm to Self : No Behaviors/Threats of Harm to Others : No Do you have a plan for suicide? : No ENRIQUETA GREENBERG MATHEUS - 10/14/2011 19:22 CDT Pain Pain Assessment Grid Pain 1 Location : Knee Laterality : Left ENRIQUETA GREENBERG RN - 10/14/2011 19:22 CDT Nutrition Eating Difficulties : None Appetite : Good ENRIQUETA GREENBERG RN - 10/14/2011 19:22 CDT Boogie Sensory Perception Boogie : No impairment Moisture Boogie : Rarely moist Activity Boogie : Walks frequently Mobility Boogie : No limitations Nutrition Boogie : Adequate Friction and Shear Boogie : No apparent problem Boogie Score : 22 ENRIQUETA GREENBERG RN - 10/14/2011 19:22 CDT Hendrich II Fall Risk Confusion/Disorientation Hendrich : No Depression Fall Risk Hendrich : Yes Altered Elimination Fall Risk Hendrich : No Dizziness/Vertigo Fall Risk Hendrich : No Gender, Male Fall Risk Hendrich : No Prescribed Antiepileptics Hendrich : No Prescribed Benzodiazepines Hendrich : No Rising From Chair Fall Risk Hendrich : Able to rise in a single movement, no loss of balance with steps Fall Risk Score Hendrich II : 2 ENRIQUETA GREENBERG RN - 10/14/2011 19:22 CDT Education General Patient Education Powergrid Topics : Other: Take 5 Individuals Taught : Patient Barriers to Learning : None evident Teaching Method : Explanation Teaching Evaluation : Verbalizes understanding ENRIQUETA GREENBERG MATHEUS - 10/14/2011 19:22 CDT Source: [facility] POWERCHART Document Id: [id number] Miscellaneous - Enriqueta Greenberg R.N. - 10/14/2011 7:21 PM CDT Adult Activities of Daily Living Adult Activities of Daily Living Entered On: 10/14/2011 19:22 CDT Performed On: 10/14/2011 19:21 CDT by ENRIQUETA GREENBERG RN ADLs I Activity Status ADL : Up ad edmund Activity Assistance : Independent Assistive Device : None Ambulation Patient Effort : Good ENRIQUETA GREENBERG RN - 10/14/2011 19:21 CDT ADLs II Elimination Assistance Offered Q2H : Independent Standard Safety : ID band check, Non-Slip footwear, Rounds every 1 hour ENRIQUETA GREENBERG RN - 10/14/2011 19:21 CDT ADLs Adult Nutrition Feeding Assistance : Independent Dinner : 100% ENRIQUETA GREENBERG RN - 10/14/2011 19:21 CDT [email or web address] Document Id: [id number] Miscellaneous - Enriqueta Greenberg RHarvinder - 10/14/2011 10:55 AM CDT Adult Ongoing Assessment Adult Ongoing Assessment Entered On: 10/14/2011 10:57 CDT Performed On: 10/14/2011 10:55 CDT by ENRIQUETA GREENBERG RN Neurological Neuro Patient Stated Symptoms : None Orientation : Oriented x 3 Level of Consciousness : Alert Gait : Steady Last Well Time Known : Not applicable ENRIQUETA GREENBERG RN - 10/14/2011 10:55 CDT Psycho/Emotional Affect/Behavior : Calm, Cooperative Pain Symptoms : Yes Feels Rested : Yes ENRIQUETA GREENBERG RN - 10/14/2011 10:55 CDT Coping Grid Identifies effective strategies : Yes Uses effective strategies : Yes Reports increase in psychological comfort : No Indicates sense of control : Yes Stressors perceived within control : No Stable mood with appropriate affect : Yes Behaviors indicate use of coping mechanism : Yes Family supportive and involved in care : Yes Values/Beliefs incorporated appropriately : Yes ENRIQUETA GREENBERG MATHEUS - 10/14/2011 10:55 CDT Safety Grid Vision, Hearing, Mobility Adequate to Meet Safety Needs : Yes ENRIQUETA GREENBERG MATHEUS - 10/14/2011 10:55 CDT Psycho/Emotional Detailed Assessment : Yes ENRIQUETA GREENBERG MATHEUS 10/14/2011 10:55 CDT Psycho/Emotional Detailed Hallucinations Present : None Orientation : Oriented x 3 Participates in Age-specific Activities : Yes Cognition : Adequate concentration, Judgement appropriate, Motivated for treatment, Cooperative with1:1 Behavior & General Appearance : Appropriate for situation, Social with peers and staff, interacts appropriately, ADLs self-initiated Behavior/Interaction with Peers/Staff Appropriate : Yes Thought Process Intact : Yes ENRIQUETA GREENBERG MATHEUS - 10/14/2011 10:55 CDT Suicide Risk Re-Assessment Ongoing Behaviors/Threats of Harm to Self : No Behaviors/Threats of Harm to Others : No Do you have a plan for suicide? : No ENRIQUETA GREENBERG MATHEUS - 10/14/2011 10:55 CDT Pain Pain Assessment Grid Pain 1 Location : Generalized ENRIQUETA GREENBERG MATHEUS 10/14/2011 10:55 CDT Nutrition Eating Difficulties : None Appetite : Good ENRIQUETA GREENBERG RN 10/14/2011 10:55 CDT Boogie Sensory Perception Boogie : No impairment Moisture Boogie : Rarely moist Activity Boogie : Walks frequently Mobility Boogie : No limitations Nutrition Boogie : Adequate Friction and Shear Boogie : No apparent problem Boogie Score : 22 ENRIQUETA GREENBERG MATHEUS - 10/14/2011 10:55 CDT Hendrich II Fall Risk Confusion/Disorientation Hendrich : No Depression Fall Risk Hendrich : Yes Altered Elimination Fall Risk Hendrich : No Dizziness/Vertigo Fall Risk Hendrich : No Gender, Male Fall Risk Hendrich : No Prescribed Antiepileptics Hendrich : No Prescribed Benzodiazepines Hendrich : No Rising From Chair Fall Risk Hendrich : Able to rise in a single movement, no loss of balance with steps Fall Risk Score Hendrich II : 2 ENRIQUETA GREENBERG MATHEUS - 10/14/2011 10:55 CDT Education General Patient Education Powergrid Topics : Plan of care, Other: Take 5 Individuals Taught : Patient Barriers to Learning : None evident Teaching Method : Explanation Teaching Evaluation : Verbalizes understanding ENRIQUETA GREENBERG RN - 10/14/2011 10:55 CDT Source: [facility] [employer]ivo Document Id: [id number] Malia - Enriqueta Greenberg R.N. - 10/14/2011 8:56 AM CDT Adult Activities of Daily Living Adult Activities of Daily Living Entered On: 10/14/2011 8:56 CDT Performed On: 10/14/2011 8:56 CDT by ENRIQUETA GREENBERG RN ADLs I Activity Status ADL : Up ad edmund Activity Assistance : Independent Assistive Device : None Range of Motion LUE : Active Range of Motion RUE : Active Range of Motion LLE : Active Range of Motion RLE : Active Ambulation Patient Effort : Good ENRIQUETA GREENBERG RN - 10/14/2011 8:56 CDT ADLs II Elimination Assistance Offered Q2H : Independent Standard Safety : ID band check, Non-Slip footwear, Rounds every 1 hour ENRIQUETA GREENBERG RN - 10/14/2011 8:56 CDT ADLs Adult Nutrition Feeding Assistance : Independent ENRIQUETA GREENBERG RN - 10/14/2011 8:56 CDT Source: [facility] [employer]ivo Document Id: [id number] Malia - Beth York R.N. - 10/14/2011 12:35 AM CDT Adult Ongoing Assessment Adult Ongoing Assessment Entered On: 10/14/2011 0:36 CDT Performed On: 10/14/2011 0:35 CDT by BETH ENG RN Psycho/Emotional Psycho/Emotional Detailed Assessment : Yes BETH ENG RN - 10/14/2011 5:21 CDT Affect/Behavior : Calm, Cooperative, Other: sleeping Pain Symptoms : No BETH ENG RN - 10/14/2011 0:35 CDT Safety Grid Vision, Hearing, Mobility Adequate to Meet Safety Needs : Yes BETH ENG RN - 10/14/2011 0:35 CDT Psycho/Emotional Detailed Sleep Assessment : Slept well 6 or more consecutive hours Hours of sleep, uninterrupted : 8 BETH ENG RN - 10/14/2011 5:21 CDT Hendrich II Fall Risk Confusion/Disorientation Hendrich : No Depression Fall Risk Hendrich : No Altered Elimination Fall Risk Hendrich : No Dizziness/Vertigo Fall Risk Hendrich : No Gender, Male Fall Risk Hendrich : No Prescribed Antiepileptics Hendrich : No Prescribed Benzodiazepines Hendrich : Yes Rising From Chair Fall Risk Hendrich : Able to rise in a single movement, no loss of balance with steps Fall Risk Score Hendrich II : 1 BETH ENG RN - 10/14/2011 0:35 CDT Source: [employer] Document Id: [id number] Miscellaneous - Beth York R.N. - 10/14/2011 12:35 AM CDT Adult Activities of Daily Living Adult Activities of Daily Living Entered On: 10/14/2011 0:36 CDT Performed On: 10/14/2011 0:35 CDT by BETH ENG RN ADLs I Activity Status ADL : Up ad edmund, Other: sleeping Activity Assistance : Independent Assistive Device : None BETH ENG RN - 10/14/2011 0:35 CDT ADLs II Standard Safety : Bed in low position, ID band check, Non-Slip footwear, Other: rounds every 15 minutes BETH ENG RN - 10/14/2011 0:35 CDT ADLs Adult Nutrition Feeding Assistance : Independent BETH ENG RN - 10/14/2011 0:35 CDT Source: [employer] Document Id: [id number] Miscellaneous - Irina Coyle R.N. - 10/13/2011 4:28 PM CDT Adult Activities of Daily Living Adult Activities of Daily Living Entered On: 10/13/2011 16:29 CDT Performed On: 10/13/2011 16:28 CDT by IRINA CLARK RN ADLs I Activity Status ADL : Up ad edmund Activity Assistance : Independent IRINA CLARK RN - 10/13/2011 16:28 CDT ADLs II Hygiene Assistance Grid Shower : Independent IRINA CLARK RN - 10/13/2011 16:28 CDT Elimination Assistance Offered Q2H : Independent Standard Safety : Bed in low position, ID band check, Non-Slip footwear, Rounds every 1 hour, Other:safety flow sheets IRINA CLARK RN - 10/13/2011 16:28 CDT ADLs Adult Nutrition Dinner : 100% Evening Snack : 100% IRINA CLARK RN - 10/13/2011 19:37 CDT Feeding Assistance : Independent IRINA CLARK RN - 10/13/2011 16:28 CDT Source: [facility] POWERCHART Document Id: [id number] Sharicellsherice - Enriqueta Greenberg R.N. - 10/13/2011 10:16 AM CDT Adult Ongoing Assessment Document Has Been Updated Adult Ongoing Assessment Entered On: 10/13/2011 10:18 CDT Performed On: 10/13/2011 10:16 CDT by ENRIQUETA GREENBERG RN Neurological Neuro Patient Stated Symptoms : None Orientation : Oriented x 3 Level of Consciousness : Alert Gait : Steady Last Well Time Known : Not applicable ENRIQUETA GREENBERG RN - 10/13/2011 10:16 CDT Psycho/Emotional Affect/Behavior : Calm, Cooperative Pain Symptoms : No ENRIQUETA GREENBERG RN - 10/13/2011 10:16 CDT ENRIQUETA GREENBERG RN - 10/13/2011 10:16 CDT Coping Grid Identifies effective strategies : No Uses effective strategies : Yes ENRIQUETA GREENBERG RN - 10/13/2011 10:16 CDT Reports increase in psychological comfort : No ENRIQUETA GREENBERG 10/13/2011 10:23 CDT Indicates sense of control : Yes Stressors perceived within control : No ENRIQUETA GREENBERG 10/13/2011 10:16 CDT Stable mood with appropriate affect : No (Comment: Affect depressed [ENRIQUETA GREENBERG 10/13/2011 10:23 CDT] ) ENRIQUETA GREENBERG 10/13/2011 10:23 CDT Behaviors indicate use of coping mechanism : Yes Family supportive and involved in care : Yes Values/Beliefs incorporated appropriately : Yes Safety Grid Vision, Hearing, Mobility Adequate to Meet Safety Needs : Yes ENRIQUETA GREENBERG 10/13/2011 10:16 CDT Psycho/Emotional Detailed Assessment : Yes ENRIQUETA GREENBERG RN 10/13/2011 10:16 CDT Psycho/Emotional Detailed Hallucinations Present : None Orientation : Oriented x 3 Participates in Age-specific Activities : Yes Cognition : Cooperative with 1:1 Behavior & General Appearance : Appropriate for situation, ADLs self-initiated Behavior/Interaction with Peers/Staff Appropriate : Yes Thought Process Intact : Yes ENRIQUETA GREENBERG 10/13/2011 10:16 CDT Suicide Risk Re-Assessment Ongoing Behaviors/Threats of Harm to Self : No Behaviors/Threats of Harm to Others : No Do you have a plan for suicide? : No ENRIQUETA GREENBERG 10/13/2011 10:16 CDT Nutrition Eating Difficulties : None Appetite : Good ENRIQUETA GREENBERG 10/13/2011 10:16 CDT Boogie Sensory Perception Boogie : No impairment Moisture Boogie : Rarely moist Activity Boogie : Walks frequently Mobility Boogie : No limitations Nutrition Boogie : Adequate Friction and Shear Boogie : No apparent problem Boogie Score : 22 ENRIQUETA GREENBERG 10/13/2011 10:16 CDT Hendrich II Fall Risk Confusion/Disorientation Hendrich : No ENRIQUETA GREENBERG 10/13/2011 10:16 CDT Depression Fall Risk Hendrich : Yes ENRIQUETA GREENBERG 10/13/2011 10:23 CDT Altered Elimination Fall Risk Hendrich : No Dizziness/Vertigo Fall Risk Hendrich : No Gender, Male Fall Risk Hendrich : No Prescribed Antiepileptics Hendrich : No ENRIQUETA GREENBERG RN - 10/13/2011 10:16 CDT Prescribed Benzodiazepines Hendrich : Yes ENRIQUETA GREENBERG RN - 10/13/2011 10:23 CDT Rising From Chair Fall Risk Hendrich : Able to rise in a single movement, no loss of balance with steps ENRIQUETA GREENBERG RN - 10/13/2011 10:16 CDT Fall Risk Score Seb II : 3 ENRIQUETA GREENBERG RN - 10/13/2011 10:23 CDT Education General Patient Education Powergrid Topics : Plan of care, Other: Take 5 Individuals Taught : Patient Barriers to Learning : None evident Teaching Method : Explanation Teaching Evaluation : Verbalizes understanding ENRIQUETA GREENBERG RN - 10/13/2011 10:16 CDT Source: [employer] Document Id: [id number] Miscellaneous - Enriqueta Greenberg RHarvinder - 10/13/2011 10:15 AM CDT Adult Activities of Daily Living Adult Activities of Daily Living Entered On: 10/13/2011 10:16 CDT Performed On: 10/13/2011 10:15 CDT by ENRIQUETA GREENBERG RN ADLs I Activity Status ADL : Up ad edmund Activity Assistance : Independent Assistive Device : None Ambulation Patient Effort : Good ENRIQUETA GREENBERG RN - 10/13/2011 10:15 CDT ADLs II Elimination Assistance Offered Q2H : Independent Standard Safety : ID band check, Non-Slip footwear, Upper/Half-length side-rails up, Other: Rounds every 15 minutes ENRIQUETA GREENBERG RN - 10/13/2011 10:15 CDT ADLs Adult Nutrition Feeding Assistance : Independent Breakfast : 100% ENRIQUETA GREENBERG RN - 10/13/2011 10:15 CDT Source: [employer] Document Id: [id number] Malia - Karen Champagne RSarahN. - 10/13/2011 2:14 AM CDT Adult Activities of Daily Living Adult Activities of Daily Living Entered On: 10/13/2011 2:14 CDT Performed On: 10/13/2011 2:14 CDT by KAREN CHAMPAGNE RN ADLs I Activity Status ADL : Up ad edmund, Other: sleeping Activity Assistance : Independent Assistive Device : None KAREN CHAMPAGNE RN - 10/13/2011 2:14 CDT ADLs II Standard Safety : Rounds every 1 hour, Other: C3SP, Safety rounds every 15 min KAREN CHAMPAGNE RN - 10/13/2011 2:14 CDT Source: [employer] Document Id: [id number] Sharicellsherice - Karen Champagne RShashank. - 10/13/2011 2:13 AM CDT Adult Ongoing Assessment Adult Ongoing Assessment Entered On: 10/13/2011 2:13 CDT Performed On: 10/13/2011 2:13 CDT by KAREN CHAMPAGNE RN Psycho/Emotional Psycho/Emotional Detailed Assessment : Yes KAREN CHAMPAGNE RN - 10/13/2011 6:22 CDT Affect/Behavior : Other: sleeping Pain Symptoms : No KAREN CHAMPAGNE RN - 10/13/2011 2:13 CDT Safety Grid Vision, Hearing, Mobility Adequate to Meet Safety Needs : Yes KAREN CHAMPAGNE RN - 10/13/2011 2:13 CDT Psycho/Emotional Detailed Sleep Assessment : Slept well 6 or more consecutive hours Hours of sleep, uninterrupted : 8 KAREN CHAMPAGNE RN - 10/13/2011 6:22 CDT Hendrich II Fall Risk Confusion/Disorientation Hendrich : No Depression Fall Risk Hendrich : No Altered Elimination Fall Risk Hendrich : No Dizziness/Vertigo Fall Risk Hendrich : No Gender, Male Fall Risk Hendrich : No Prescribed Antiepileptics Hendrich : No Prescribed Benzodiazepines Hendrich : Yes Rising From Chair Fall Risk Hendrich : Able to rise in a single movement, no loss of balance with steps Fall Risk Score Anabelrich II : 1 KAREN CHAMPAGNE RN - 10/13/2011 2:13 CDT Source: [employer] Document Id: [id number] Miscellaneous - Tereza Wiggins R.N. - 10/12/2011 10:02 PM CDT Basic Admission Information Basic Admission Information Entered On: 10/12/2011 22:03 CDT Performed On: 10/12/2011 22:02 CDT by TEREZA WIGGINS RN Vital Signs Temperature Core : 36.6C(Converted to: 97.9DegF) Peripheral Pulse Rate : 66/min Systolic Blood Pressure : 112mmHg Diastolic Blood Pressure : 72mmHg NIBP Mean : 85mmHg Actual Weight : 67.2kg Actual Weight Conversion to Pounds : 147.840lb TEREZA WIGGINS RN - 10/12/2011 22:02 CDT Allergy Rule Allergies (Active) Latex Estimated Onset Date: Unspecified ; Created By: GABRIELLE ALLEN; Reaction Status: Active ; Category: Drug ; Substance: Latex ; Type: Allergy ; Severity: Mild ; Updated By: GABRIELLE ALLEN; Reviewed Date: 04/25/2011 9:33 [employer] Naproxen Sodium Estimated Onset Date: Unspecified ; Created By: GABRIELLE ALLEN; Reaction Status: Active ; Category: Drug ; Substance: Naproxen Sodium ; Type: Allergy ; Updated By: GABRIELLE ALLEN;Reviewed Date: 04/25/2011 9:33 [employer] [employer] Valuables/Belongings Home Medication Disposition : Sent home with family Comment : see belongings worksheet TEREZA WIGGINS RN - 10/12/2011 22:02 CDT Source: Canvas Document Id: [id number] Miscellaneous - Tereza Wiggins R.N. - 10/12/2011 10:00 PM CDT Adult Admission Assessment Adult Admission Assessment Entered On: 10/12/2011 22:02 CDT Performed On: 10/12/2011 22:00 CDT by TEREZA WIGGINS RN Psycho/Emotional Pain Symptoms : Yes TEREZA WIGGINS RN - 10/12/2011 22:00 CDT Coping Grid Identifies effective strategies : No Uses effective strategies : No Reports increase in psychological comfort : No Indicates sense of control : No Stressors perceived within control : No Stable mood with appropriate affect : Yes Behaviors indicate use of coping mechanism : No Family supportive and involved in care : Yes Values/Beliefs incorporated appropriately : Yes TEREZA WIGGINS RN - 10/12/2011 22:00 CDT Safety Grid Vision, Hearing, Mobility Adequate to Meet Safety Needs : Yes TEREZA WIGGINS RN - 10/12/2011 22:00 CDT Psycho/Emotional Detailed Assessment : Yes TEREZA WIGGINS RN - 10/12/2011 22:00 CDT Psycho/Emotional Detailed Hallucinations Present : None Orientation : Oriented x 3 Participates in Age-specific Activities : Yes Cognition : Adequate concentration, Judgement appropriate, Motivated for treatment, Cooperative with1:1 Behavior & General Appearance : Appropriate for situation, Social with peers and staff, interacts appropriately, ADLs self-initiated Behavior/Interaction with Peers/Staff Appropriate : Yes Thought Process Intact : Yes TEREZA WIGGINS RN - 10/12/2011 22:00 CDT Pain Pain Assessment Grid Pain 1 Location : Hand (Comment: bilateral [TEREZA WIGGINS RN - 10/12/2011 22:00 CDT] ) TEREZA WIGGINS RN - 10/12/2011 22:00 CDT Boogie Sensory Perception Boogie : No impairment Moisture Boogie : Rarely moist Activity Boogie : Walks frequently Mobility Boogie : No limitations Nutrition Boogie : Adequate Friction and Shear Boogie : No apparent problem Boogie Score : 22 TEREZA WIGGINS RN - 10/12/2011 22:00 CDT Hendrich II Fall Risk Confusion/Disorientation Hendrich : No Depression Fall Risk Hendrich : Yes Altered Elimination Fall Risk Hendrich : No Dizziness/Vertigo Fall Risk Hendrich : No Gender, Male Fall Risk Hendrich : No Prescribed Antiepileptics Hendrich : No Prescribed Benzodiazepines Hendrich : Yes Rising From Chair Fall Risk Hendrich : Able to rise in a single movement, no loss of balance with steps Fall Risk Score Seb II : 3 TEREZA WIGGINS RN - 10/12/2011 22:00 CDT Education General Patient Education Powergrid Topics : Plan of care, Unit procedures, Other: Admission Process Individuals Taught : Patient Barriers to Learning : None evident Teaching Method : Explanation, Printed materials Teaching Evaluation : Verbalizes understanding TEREZA WIGGINS RN - 10/12/2011 22:00 CDT Source: [facility] Civo Document Id: [id number] Miscellaneous - Tereza Wiggins, R.N. - 10/12/2011 9:32 PM CDT Adult Admission History Adult Admission History Entered On: 10/12/2011 22:00 CDT Performed On: 10/12/2011 21:32 CDT by TEREZA WIGGINS RN General Info Preferred Name : Marlin Mode of Arrival : Ambulatory Accompanied By : Spouse Preferred Communication Mode : Verbal Information Given By : Patient Languages : Khmer TEREZA WIGGINS RN - 10/12/2011 21:32 CDT Allergy Allergies (Active) Latex Estimated Onset Date: Unspecified ; Created By: GABRIELLE ALLEN; Reaction Status: Active ; Category: Drug ; Substance: Latex ; Type: Allergy ; Severity: Mild ; Updated By: GABRIELLE ALLEN; Reviewed Date: 04/25/2011 9:33 UNIT LEADER Naproxen Sodium Estimated Onset Date: Unspecified ; Created By: GABRIELLE ALLEN; Reaction Status: Active ; Category: Drug ; Substance: Naproxen Sodium ; Type: Allergy ; Updated By: GABRIELLE ALLEN;Reviewed Date: 04/25/2011 9:33 UNIT LEADER Problem List/Diagnoses Problems(Active) Depression with Anxiety* Name of Problem: Depression with Anxiety* ; Recorder: SHAMIKA KRAUS MD; Confirmation: Confirmed ; Classification: Medical ; Code: 1231 ; Contributor System: [employer] ;Last Updated: 01/23/2011 18:32 CDT ; Life Cycle Date: 01/23/2011 ; Life Cycle Status: Active ; Responsible Provider: SHAMIKA KRAUS MD; Vocabulary: ICD-9-CM Esophageal reflux (GERD) Name of Problem: Esophageal reflux (GERD) ; Recorder: SHAMIKA KRAUS MD; Confirmation: Confirmed ; Classification: Medical ; Code: 1231 ; Contributor System: PowerChart ;Last Updated: 01/23/2011 18:32 CDT ; Life Cycle Date: 01/23/2011 ; Life Cycle Status: Active ; Responsible Provider: SHAMIKA KRAUS MD; Vocabulary: ICD-9-CM Fibromyalgia Name of Problem: Fibromyalgia ; Recorder: SHAMIKA KRAUS MD; Confirmation: Confirmed ; Classification: Medical ; Code: 1231 ; Contributor System: PowerChart ; Last Updated: 01/23/2011 18:31 CDT ; Life Cycle Date: 01/23/2011 ; Life Cycle Status: Active ; Responsible Provider: SHAMIKA KRAUS MD; Vocabulary: ICD-9-CM Juvenile rheumatoid arthritis Name of Problem: Juvenile rheumatoid arthritis ; Recorder: SHAMIKA KRAUS MD; Confirmation: Confirmed ; Classification: Medical ; Code: 1231 ; Contributor System: PowerChart ; Last Updated: 01/23/2011 18:31 CDT ; Life Cycle Date: 01/23/2011 ; Life Cycle Status: Active ; Responsible Provider: SHAMIKA KRAUS MD; Vocabulary: ICD-9-CM Raynaud's phenomenon Name of Problem: Raynaud's phenomenon ; Recorder: SHAMIKA KRAUS MD; Confirmation: Confirmed ; Classification: Medical ; Code: 1231 ; Contributor System: PowerChart ; Last Updated: 01/23/2011 18:31 CDT ; Life Cycle Date: 01/23/2011 ; Life Cycle Status: Active ; Responsible Pr ovider: SHAMIKA KRAUS MD; Vocabulary: ICD-9-CM Nutrition Nutrition Risk Factors by History Adult : None Home Diet : Regular Feeding Ability : Complete independence Eating Difficulties : None Appetite : Poor TEREZA WIGGINS RN - 10/12/2011 21:32 CDT Home Environment Current Daily Living Assistance : None Living Situation : Home independently Home Equipment : None Sensory Deficits : None Mobility Assistance Prior to Admission : Independent Current Home Treatments : None Professional Skilled Services : None Special Services and Community Resources : None TEREZA WIGGINS RN - 10/12/2011 21:32 CDT Dependent Habits Tobacco Use/Currently Using : Yes Exposure to Tobacco Smoke : Patient smokes Smoking Status : Current every day smoker TEREZA WIGGINS RN - 10/12/2011 21:32 CDT Tobacco Use Grid Type : Cigarettes Cigarette Use Packs/Day : 1 Last Use : today TEREZA WIGGINS RN - 10/12/2011 21:32 CDT Alcohol Use : No TEREZA WIGGINS RN - 10/12/2011 21:32 CDT Caffeine Use Grid Caffeine Use : Current Type : Coffee, Soft drinks Frequency : Daily TEREZA WIGGINS RN - 10/12/2011 21:32 CDT Recreational Drug Use Grid Drug Use : None TEREZA WIGGINS RN - 10/12/2011 21:32 CDT Psychosocial Adult Domestic Abuse Concerns : None Concerns About Family Members at Home : No Emotional Support Available : Yes Chronic/Terminal Illness Freq Visits : No Financial Concerns Regarding Hospitalization/Discharge : No Behavioral Health Screen/Safety Assmt : Yes Stressors : Condition, Diagnosis Coping : Ineffective Aquatics Director/Print Manager Notified : No TEREAZ WIGGINS RN - 10/12/2011 21:32 CDT Behavioral Health Screen/Safety Assmt Depressed : Yes Hearing Voices : No Thoughts of Harming Self : Yes BH Thoughts : No Suicide Attempts : No Suicide Plan : No Self-destructive Behaviors : No Thoughts of Harming Others : No Time Placed Under Observation : 20:15 UNIT LEADER TEREZA WIGGINS RN - 10/12/2011 21:32 CDT Advance Directive Advanced Directives : No Activation of Power of Relief Manager : No Advance Directive Additional Information : No Guardianship : No TEREZA WIGGINS RN - 10/12/2011 21:32 CDT Educ Needs Learning Style Preference Adult Grid Patient : Demonstration, Printed materials, Verbal explanation, Video/Educational TV Family : None TEREZA WIGGINS RN - 10/12/2011 21:32 CDT DC Needs Anticipated Discharge Date : 10/19/2011 CDT TEREZA WIGGINS RN - 10/12/2011 21:32 CDT [facility] Document Id: [id number] documented in this encounter Plan of Treatment Not on filedocumented as of this encounter Procedures Procedure Name Priority Date/Time Associated Diagnosis Comme nts LIPID PANEL, S Routine 10/16/2011 5:29 AM Results for this CDT procedure are i n the results section. GLUCOSE, FASTING, Routine 10/16/2011 5:29 AM Resu lts for this S/P CDT procedure are i n the results section. THYROID-STIMULATING Routine 10/13/2011 5:37 AM Re sults for this HORMONE-SENSITIVE CDT procedure are in (S-TSH) the results section. documented in this encounter Results Glucose, Fasting (10/16/2011 5:29 AM CDT) athologist Signature Glucose, 83 70 - 99 POWERCHART Fasting, S MGDL Comment: Fasting Range 70-99 mg/dL Non-Fasting Range 70-140 mg/dL Glucose 1 Hr OB ADA Guidelines state a glucose threshhol d value = or > 140 md/dL identifies approximately 80% of women with GDM, and the yield is further increased to 90% by using a cut off of > or = 130 mg/dL. ADA Diagnostic Criteria; -Fasting glucose > or = 126 mg/dL after an 8 hr fast OR -2-Hr glucose > or = to 200 mg/dL during a 75 gram oral load OR -Glucose casual (random) glucose > or = 200 mg/dL plus typical symptoms 3-Hour Glucose Tolerance Diagnostic Cut- offs (after an 8-hour fast): Fasting >=95 mg/dL 1 Hour >=180 mg/dL 2 Hour >=155 mg/dL 3 Hour >=140 mg/dL Specimen (Source) Anatomical Collection Method Collection Time Re ceived Time Location / / Volume Laterality Blood 10/16/2011 5:29 AM CDT Manjula Carmen M.D. LAB BLOOD NON ADD-ON Performing Organization Address City/State/ZIP Code Phon e Number POWERCHART (ABNORMAL) Lipid Panel (10/16/2011 5:29 AM CDT) athologist Signature Cholesterol, 150 <=200 MGDL POWERCHART Total Comment: <200 mg/dL Desirable 200-239 Borderline High >239 mg/dL High HX HDL 63 (H) 40 - 60 MGDL POWERCHART Triglycerides 84 0 - 150 MGDL POWERCHART Calculated LDL 70 <=130 MGDL POWERCHART Total Cholesterol/HDL Ratio 2 PO WERCHART HXLDL/HDL 1 POWERCHART Specimen (Source) Anatomical Collection Method Collection Time Re ceived Time Location / / Volume Laterality Blood 10/16/2011 5:29 AM CDT Manjula Carmen M.D. LAB BLOOD ADD-ON Performing Organization Address City/State/ZIP Code Phon e Number POWERCHART Thyroid-Stimulating Hormone-Sensitive (s-TSH) (10/13/2011 5:37 AM CDT) P athologist Signature TSH 2.3 0.3 - 5.0 POWERCHART (Thyrotropin) MIUL Specimen (Source) Anatomical Collection Method Collection Time Re ceived Time Location / / Volume Laterality Blood 10/13/2011 5:37 AM CDT Andrew Wall M.D. LAB BLOOD ADD-ON Performing Organization Address City/State/ZIP Code Phon e Number POWERCHART documented in this encounter Visit Diagnoses Not on filedocumented in this encounter Additional Health Concerns Assessment Noted Time PHQ-9 Depression Total Score: 20 04/25/2011 10:[address] documented as of this encounter
--- OUTSIDE RECORDS SUMMARY | 2022-02-02 11:05 | XMS_ITS | Encounter Summary ---
:1980 Author Organization [facility] Address [address] [place] [address] Care Team Providers Name Role Phone Unavailable Primary Care Provider Unavailable Encounter Details Date Type Department Care Team Description 11/30/2012 Hospital Encounter HX [facility] EMERGENCY Provider, Historic al TRAUMA UNI Social History Tobacco Use Types Packs/Day Years [...] do you attend religion or Never 2019 religion services? Do you belong to any clubs [...]
--- OUTSIDE RECORDS SUMMARY | 2022-02-02 11:05 | XMS_ITS | Encounter Summary ---
:1980 Author Organization [facility] Address [address] [place] [address] Care Team Providers Name Role Phone Unavailable Primary Care Provider Unavailable Encounter Details Date Type Department Care Team Description 08/12/2012 Hospital Encounter HX [facility] Addy Flores M.D. [address] [place], [place] [phone] (Wo rk) Social History [...] do you attend taoism or Never 2019 advent services? Do you [...] Sign Reading Time Taken Comments Blood Pressure 112/76 08/12/2012 9:58 AM CDT Pulse 68 08/12/2012 9:58 AM CDT Temperature - - Respiratory Rate - - Oxygen Saturation - - Inhaled Oxygen Concentration - - Weight - - Height - - Body Mass Index - - documented in this encounter Progress Notes Dada Ramachandran M.D. - 08/12/2012 9:38 AM CDT [id number] CHIEF COMPLAINT / REASON FOR VISIT 5 days status post nasal septoplasty, endoscopic partial resection right middle turbinate reduction,and right inferior turbinate submucosal cautery. HISTORY OF PRESENT ILLNESS This patient is a 32-year-old female here for a postop recheck. No problems with bleeding. Patient tolerated the procedure well. VITAL SIGNS PERIPHERAL PULSE RATE: 68/min. TEMPERATURE: 37 C. BLOODPRESSURE: 112/76 mmHg. PHYSICAL EXAM NOSE: After topical 4% Xylocaine in Afrin Nasal spray on each side of the nose, intranasal stents were removed without difficult. Absorbable packing suctioned from nose. Septum healing nicely. IMPRESSION / REPORT / PLAN 1. Satisfactory postop recheck nasal septoplasty, endoscopic partial resection right middle turbinate reduction, and right inferior turbinate submucosal cautery. PLAN: Discussed and reassured regarding postop recovery. Discussed saline irrigation b.i.d. for 1 week, daily for the next week, then p.r.n. We will see her again in follow up in 2 weeks for recheck, sooner on a p.r.n. basis. Intraoperative photographs were reviewed with patient. This document serves as a record of services personally performed by Dr. Dada Ramachandran. It was created on his behalf by Brodie Cage, a trained medical claims manager. The creation of this record is based on the scribe's personal observations and the provider's statements to him. This document has been checked and approved by the attending provider. Dada Ramachandran M.D./fabricio Electronically Signed By: DADA RAMACHANDRAN MD On: 08/22/2012 03:03 PM Source: [facility] [email or web address] Document Id: [id number] documented in this encounter Miscellaneous Notes Miscellaneous - Dada Ramachandran M.D. - 08/12/2012 10:27 AM CDT Ambulatory Patient Summary [facility] [address] [place] [address] Visit Information Name: MARLIN PLUMMER [facility] Number: [id number] Current Date: 08/12/2012 10:27:45 Physicians Attending Provider: DADA RAMACHANDRAN MD Primary [...] 500 mg Oral two times a day hydrocodone-acetaminophen (Lorton 5 mg-325 mg oral tablet) 1-2 tab(s) Oral every 4 hours as needed for Pain No more than 4,000mg acetaminophen/24hrs pregabalin (Lyrica 300 mg oral capsule) 300 mg Oral three times a day lamotrigine (Lamictal 200 mg oral tablet) 200 mg Oral once a day lactobacillus rhamnosus GG (Culturelle HS oral capsule) 1 cap(s) Oral once a day hyoscyamine (Levbid 0.375 mg oral tablet, extended release) 0.375 mg Oral every 12 hours as needed for spasm *fluticasone nasal (Flonase 50 mcg/inh nasal spray) 1 [...] tablet) 10 mg Oral once a day *quetiapine (Seroquel 50 mg oral tablet) 100 mg Oral once a day pantoprazole (pantoprazole 40 mg oral granule, enteric coated) 40 mg Oral two times a day levonorgestrel (Mirena) 1 each cyclobenzaprine (Flexeril) 10 mg Oral once a day (at bedtime) zolpidem (zolpidem) 10 mg Oral as needed as needed for Insomnia *acetaminophen (Tylenol) 500 mg Oral two times a day *tramadol (tramadol) 100 mg Oral two times a [...] No Appointments found Your Goals/Additional instructions: Source: [facility] POWERCHART Document Id: [id number] Miscellaneous - Dada Ramachandran M.D. - 08/12/2012 10:27 AM CDT Ambulatory Depart Summary [place] [id number] Visit Information Name: MARLIN PLUMMER [facility] Number: [id number] Visit Date: 08/12/2012 10:27:44 Attending Provider: DADA RAMACHANDRAN MD Primary Care [...] 500 mg Oral two times a day hydrocodone-acetaminophen (Lorton 5 mg-325 mg oral tablet) 1-2 tab(s) Oral every 4 hours as needed for Pain No more than 4,000mg acetaminophen/24hrs pregabalin (Lyrica 300 mg oral capsule) 300 mg Oral three times a day lamotrigine (Lamictal 200 mg oral tablet) 200 mg Oral once a day lactobacillus rhamnosus GG (Culturelle HS oral capsule) 1 cap(s) Oral once a day hyoscyamine (Levbid 0.375 mg oral tablet, extended release) 0.375 mg Oral every 12 hours as needed for spasm *fluticasone nasal (Flonase 50 mcg/inh nasal spray) 1 [...] tablet) 10 mg Oral once a day *quetiapine (Seroquel 50 mg oral tablet) 100 mg Oral once a day pantoprazole (pantoprazole 40 mg oral granule, enteric coated) 40 mg Oral two times a day levonorgestrel (Mirena) 1 each cyclobenzaprine (Flexeril) 10 mg Oral once a day (at bedtime) zolpidem (zolpidem) 10 mg Oral as needed as needed for Insomnia *acetaminophen (Tylenol) 500 mg Oral two times a day *tramadol (tramadol) 100 mg Oral two times a [...] your provider for clarification. Additional Information: Source: [facility] POWERCHART Document Id: [id number] Miscellsherice - Quinn Horn L.P.N. - 08/12/2012 9:58 AM CDT Adult Novelty Twister Tender Intake/History Adult Novelty Twister Tender Intake/History Entered On: 08/12/2012 10:04 CDT Performed On: 08/12/2012 9:58 CDT by QUINN HORN Intake Chief Complaint : postop check Temperature Oral : 37.0 DegC(Converted to: 98.6 DegF) Peripheral Pulse Rate : 68 /min Systolic Blood Pressure : 112 mmHg Diastolic Blood Pressure : 76 mmHg NIBP Mean : 88 mmHg BP Location : Right upper extremity Blood Pressure Cuff Size : Regular QUINN HORN - 08/12/2012 9:58 CDT General Info Information Given By : Patient Languages : Salvadorean QUINN HORN 08/12/2012 9:58 CDT Subjective Pain Symptoms : Yes QUINN HORN 08/12/2012 9:58 CDT Pain Pain Assessment Grid Pain 1 Location : Nose (Comment: due to postop pain [QUINN HORN - 08/12/2012 9:58 CDT] ) QUINN HORN - 08/12/2012 9:58 CDT Dependent Habits Tobacco Use/Currently Using : Yes Exposure to Tobacco Smoke : Patient smokes Smoking Status : Current every day smoker QUINN HORN - 08/12/2012 9:58 CDT Tobacco Use Grid Type : Cigarettes Cigarette Use Packs/Day : 1 Last Use : today QUINN HORN 08/12/2012 9:58 CDT Caffeine Use Grid Caffeine Use : Current Type : Coffee, Soft drinks Frequency : Daily QUINN HORN 08/12/2012 9:58 CDT Recreational Drug Use Grid Drug Use : None QUINN HORN 08/12/2012 9:58 CDT Source: [email or web address] Document Id: [id number] documented in this encounter Plan of Treatment Not on filedocumented as of this encounter Visit Diagnoses Not on filedocumented in this encounter Additional Health Concerns Assessment Noted Time PHQ-9 Depression Total Score: 20 04/25/2011 10:[address] documented as of this encounter
--- OUTSIDE RECORDS SUMMARY | 2022-02-02 11:06 | XMS_ITS | Encounter Summary ---
:1980 Author Organization [facility] Address [address] [address] Care Team Providers Name Role Phone Needs Pcp, Assignment Primary Care Provider Encounter Details Date Type Department Care Team Description 05/20/2020 Lab Visit [facility] Rheumatoid arthritis, involv ing unspecified site, unspecified whether rheumatoid factor present (HRC); [id number] [address] [facility] Arthralgia, unspecified join t; [place] [address] Chronic pain syndrome [phone] Social History Tobacco Use Types Packs/Day Years Used Date Smoking Tobacco: Every Day Sex Assigned at Date Recorded Not on file documented as of this encounter Progress Notes Vikas Donohue MD - 05/20/2020 11:25 AM CST Recent blood work shows negative antibodies for rheumatoid arthritis and inflammatory spondyloarthritis. Normal inflammatory markers C-reactive protein and sedimentation rate pointing against an active inflammatory process. Normal protein electrophoresis. Normal kidney and liver function. Normal white blood cells, red blood cells and platelet count. Based on the recent blood work and imaging studies and the clinical presentation at this time my suspicion is low for an active inflammatory arthritis like rheumatoid arthritis. I feels that the chronic pain syndrome/fibromyalgia is contributing to her symptoms. Recommend continue symptomatic approach with Celebrex as needed for pain. Recommend discussing with PCP adjuvant therapy like Cymbalta or Savella. Recommend lifestyle renewal program here at [facility]. CAR WORKER documented in this encounter Plan of Treatment Not on filedocumented as of this encounter Procedures Procedure Name Priority Date/Time Associated Diagnosis Comme nts PATH REVIEW (LAB USE Routine 05/20/2020 12:11 Rheumatoid Res ults for this ONLY) PM SAND CAR WORKER arthritis, involving procedu re are in unspecified site, the result s unspecified whether section. rheumatoid factor present (HRC) Arthralgia, unspecified join t Chronic pain syndrome CBC AND DIFFERENTIAL Routine 05/20/2020 11:32 Rheumatoid Res ults for this PANEL AM SAND CAR WORKER arthritis, involving procedu re are in unspecified site, the result s unspecified whether section. rheumatoid factor present (HRC) Arthralgia, unspecified join t Chronic pain syndrome ANTI-CCP AB Routine 05/20/2020 11:32 Rheumatoid Results for this AM SAND CAR WORKER arthritis, involving procedu re are in unspecified site, the result s unspecified whether section. rheumatoid factor present (HRC) Arthralgia, unspecified join t Chronic pain syndrome COMPLETE BLOOD Routine 05/20/2020 11:32 Rheumatoid Results f or this COUNT-W/DIFF AM SAND CAR WORKER arthritis, involving procedu re are in unspecified site, the result s unspecified whether section. rheumatoid factor present (HRC) Arthralgia, unspecified join t Chronic pain syndrome COMP METABOLIC PANEL Routine 05/20/2020 11:32 Rheumatoid Res ults for this AM SAND CAR WORKER arthritis, involving procedu re are in unspecified site, the result s unspecified whether section. rheumatoid factor present (HRC) Arthralgia, unspecified join t Chronic pain syndrome ELP, CASCADE, SERUM Routine 05/20/2020 11:32 Rheumatoid Resu lts for this AM SAND CAR WORKER arthritis, involving procedu re are in unspecified site, the result s unspecified whether section. rheumatoid factor present (HRC) Arthralgia, unspecified join t Chronic pain syndrome DIFFERENTIAL Routine 05/20/2020 11:32 Rheumatoid Results for this AM SAND CAR WORKER arthritis, involving procedu re are in unspecified site, the result s unspecified whether section. rheumatoid factor present (HRC) Arthralgia, unspecified join t Chronic pain syndrome RHEUMATOID FACTOR, Routine 05/20/2020 11:32 Rheumatoid Resul ts for this QUANT AM SAND CAR WORKER arthritis, involving procedu re are in unspecified site, the result s unspecified whether section. rheumatoid factor present (HRC) Arthralgia, unspecified join t Chronic pain syndrome HLA B27 Routine 05/20/2020 11:32 Rheumatoid Results for this AM SAND CAR WORKER arthritis, involving procedu re are in unspecified site, the result s unspecified whether section. rheumatoid factor present (HRC) Arthralgia, unspecified join t Chronic pain syndrome C-REACTIVE PROTEIN Routine 05/20/2020 11:32 Rheumatoid Resul ts for this AM SAND CAR WORKER arthritis, involving procedu re are in unspecified site, the result s unspecified whether section. rheumatoid factor present (HRC) Arthralgia, unspecified join t Chronic pain syndrome ESR Routine 05/20/2020 11:32 Rheumatoid Results for this AM SAND CAR WORKER arthritis, involving procedu re are in unspecified site, the result s unspecified whether section. rheumatoid factor present (HRC) Arthralgia, unspecified join t Chronic pain syndrome documented in this encounter Results Path Review (Lab use only) (05/20/2020 12:11 PM SAND CAR WORKER) Specimen Anatomical Collection Method / Collection Time Recei lucio Time (Source) Location / Volume Laterality Blood Venipuncture / 05/20/2020 12:11 1 Unknown PM SAND CAR WORKER 12:11 PM SAND CAR WORKER Vikas Donohue MD LAB_1 Performing Organization Address City/State/ZIP Code Phon e Number [facility] [address] [place] [address] (ABNORMAL) Differential (05/20/2020 11:32 AM SAND CAR WORKER) [facility] gist Method Time Signature RBC Morphology Reviewed 05/20/2020 [facility] 12:16 PM [facility] Platelet Adequate Adequate 05/20/2020 [facility] Estimate 12:16 PM [facility] Neutrophil 4.8 1.7 - 7.0 05/20/2020 [facility] Absolute 10(9)/L 12:16 PM [facility] Lymphocyte 2.4 1.0 - 4.8 05/20/2020 [facility] Absolute 10(9)/L 12:16 PM [facility] Monocytes 0.3 0.2 - 0.9 05/20/2020 [facility] Absolute 10(9)/L 12:16 PM [facility] Eosinophil 1.8 (H) 0.0 - 0.5 05/20/2020 [facility] Absolute 10(9)/L 12:16 PM [facility] Basophil 0.0 0.0 - 0.3 05/20/2020 [facility] Absolute 10(9)/L 12:16 PM [facility] Specimen Anatomical Collection Method / Collection Time Recei lucio Time (Source) Location / Volume Laterality Blood Venipuncture / 05/20/2020 11:32 1 Unknown AM SAND CAR WORKER 11:32 AM SAND CAR WORKER Vikas Donohue MD LAB_1 Performing Organization Address City/[facility]/ZIP Code Phon e Number [facility] [address] [place], [place] [phone] Complete Blood Count-W/Diff (05/20/2020 11:32 AM SAND CAR WORKER) athologist Signature WBC 9.3 3.5 - 10.5 05/20/2020 [facility] x10(9)/L 12:16 PM [facility] RBC 4.20 3.90 - 05/20/2020 [facility] 5.03 12:16 PM [facility] x10(12)/L Hemoglobin 13.4 12.0 - 05/20/2020 [facility] 15.5 g/dL 12:16 PM [facility] HCT 40.3 34.9 - 05/20/2020 [facility] 44.5 % 12:16 PM [facility] MCV 96.0 80.0 - 05/20/2020 [facility] 100.0 fL 12:16 PM [facility] MCH 31.9 27.6 - 05/20/2020 [facility] 33.3 pg 12:16 PM [facility] MCHC 33.3 31.5 - 05/20/2020 [facility] 35.2 g/dL 12:16 PM [facility] RDW 13.0 11.9 - 05/20/2020 [facility] 15.5 % 12:16 PM [facility] Platelets 309 150 - 450 05/20/2020 [facility] x10(9)/L 12:16 PM [facility] Automated NRBC 0 <=0 /100 05/20/2020 [facility] WBC 12:16 PM [facility] Specimen Anatomical Collection Method / Collection Time Recei lucio Time (Source) Location / Volume Laterality Blood Venipuncture / 05/20/2020 11:32 1 Unknown AM SAND CAR WORKER 11:32 AM SAND CAR WORKER Vikas Donohue MD LAB_1 Performing Organization Address City/[facility]/ZIP Code Phon e Number [facility] [address] [place], [place] [phone] Comp Metabolic Panel (05/20/2020 11:32 AM SAND CAR WORKER) P athologist Signature Sodium 138 136 - 145 05/20/2020 [facility] mmol/L 12:22 PM [facility] Potassium 4.1 3.5 - 5.1 05/20/2020 [facility] mmol/L 12:22 PM [facility] Chloride 102 98 - 109 05/20/2020 [facility] mmol/L 12:22 PM [facility] CO2 26 20 - 29 05/20/2020 [facility] mmol/L 12:22 PM [facility] Anion Gap 10 7 - 16 05/20/2020 [facility] mmol/L 12:22 PM [facility] Calcium 9.4 8.4 - 10.4 05/20/2020 [facility] mg/dL 12:22 PM [facility] BUN 10 7 - 26 05/20/2020 [facility] mg/dL 12:22 PM [facility] Creatinine 0.80 0.55 - 05/20/2020 [facility] 1.02 mg/dL 12:22 PM [facility] GFR, Estimated >60 >60 05/20/2020 [facility] mL/min/1.7 12:22 PM [facility] 3m2 Alkaline 49 40 - 150 05/20/2020 [facility] Phosphatase U/L 12:22 PM [facility] AST (SGOT) 17 10 - 40 05/20/2020 [facility] U/L 12:22 PM [facility] ALT (SGPT) 20 0 - 55 U/L 05/20/2020 [facility] 12:22 PM [facility] Bilirubin, Total 0.2 0.2 - 1.2 05/20/2020 [facility] mg/dL 12:22 PM [facility] Protein, Total 6.8 6.4 - 8.3 05/20/2020 [facility] g/dL 12:22 PM [facility] Albumin 4.2 3.5 - 5.0 05/20/2020 [facility] g/dL 12:22 PM [facility] Glucose 95 70 - 100 05/20/2020 [facility] mg/dL 12:22 PM [facility] Comment: The given reference range is fo r the fasting state. Non-fasting reference range for glucose is 70 - 180 mg/dL. Hours Fasting 12 05/20/2020 12:22 PM [facility] Specimen Anatomical Collection Method / Collection Time Recei lucio Time (Source) Location / Volume Laterality Blood Venipuncture / 05/20/2020 11:32 Unknown AM SAND CAR WORKER 11:32 AM SAND CAR WORKER Vikas Donohue MD LAB_1 Performing Organization Address City/State/ZIP Code Phon e Number [facility] [address] [place] [address] RHF - Rheumatoid Factor (05/20/2020 11:32 AM SAND CAR WORKER) Analysis Performed At Patho logist Time Signature Rheumatoid <15 <=30 IU/mL 05/20/2020 [facility], 4:13 PM [facility] Quantitative Specimen Anatomical Collection Method / Collection Time Recei lucio Time (Source) Location / Volume Laterality Blood Venipuncture / 05/20/2020 11:32 1 Unknown AM SAND CAR WORKER 11:32 AM SAND CAR WORKER Vikas Donohue MD LAB_1 Performing Organization Address City/[facility]/ZIP Code Phon e Number [facility] [address] [place] [address] HLA B27 (05/20/2020 11:32 AM SAND CAR WORKER) athologist Signature HLA B27 Negative Negative 05/22/2020 [facility] 10:06 AM [facility] Specimen Anatomical Collection Method / Collection Time Recei lucio Time (Source) Location / Volume Laterality Blood Venipuncture / 05/20/2020 11:32 1 Unknown AM SAND CAR WORKER 11:32 AM SAND CAR WORKER [facility] - 05/22/2020 10:[address] This test was developed and the performance characteristics were determined by [facility]. It has not been cleared or approved by t U.S. Food and Drug Administration. The FDA sarkar s determined that such clearance or approv al is not necessary. Vikas Donohue MD LAB_1 Performing Organization Address City/State/ZIP Code Phon e Number [address] [address] CCPIG - Cyclic Citrullinated Peptide AB (05/20/2020 11:32 AM SAND CAR WORKER) Patholo gist Method Time Signature Anti-CCP Antibody 1 <7 U/mL 05/21/2020 [facility] 11:49 AM [facility] SAND CAR WORKER Anti-CCP Antibody Negative Negative 05/21/2020 [facility] Interpretation 11:49 AM [facility]TRAL LAB SAND CAR WORKER Specimen Anatomical Collection Method / Collection Time Recei lucio Time (Source) Location / Volume Laterality Blood Venipuncture / 05/20/2020 11:32 1 Unknown AM SAND CAR WORKER 11:32 AM SAND CAR WORKER Vikas Donohue MD LAB_1 Performing Organization Address City/State/ZIP Code Phon e Number [facility] [address] [address] (ABNORMAL) ELCP - Electrophoresis [place] To JONO,Serum (05/20/2020 11:32 AM SAND CAR WORKER) Component Value Ref Test Analysis Performed At [facility] gist Range Method Time Signature Total Protein 6.5 6.4 - [facility] 8.3 1 3:11 PM CENTRAL LAB g/dL SAND CAR WORKER Albumin 4.3 3.4 - [facility] 4.8 1 3:11 PM CENTRAL LAB g/dL SAND CAR WORKER Alpha 1 0.3 0.2 - [facility] 0.5 1 3:11 PM CENTRAL LAB g/dL SAND CAR WORKER Alpha 2 0.8 0.5 - [facility] 1.1 1 3:11 PM CENTRAL LAB g/dL SAND CAR WORKER Beta 0.7 0.6 - [facility] 1.1 1 3:11 PM CENTRAL LAB g/dL SAND CAR WORKER Gamma 0.4 (L) 0.7 - [facility] 1.6 1 3:11 PM CENTRAL LAB g/dL SAND CAR WORKER Monoclonal 0.0 <=0.0 [facility] Will g/dL 1 3:11 PM CENTRAL LAB SAND CAR WORKER Interpretation Hypogammaglobulinemia is pre sent. In adults, this may reflect the presence of immunodeficiency, chemotherapy, or B cell neoplasm. [facility] Consider urine immunofixatio n to rule out Bence Solares proteinuria. Serum immunofixation and measurement of serum IgA, IgG and IgM may also be indicated. 1 3:11 PM CENTRAL LAB SAND CAR WORKER Additional Not indicated. [facility] Testing 1 3:11 PM CENTRAL LAB SAND CAR WORKER Signed Out By Count includes the [facility] Central Laboratory 1 3:11 PM CENTRAL LAB SAND CAR WORKER Specimen Anatomical Collection Method / Collection Time Recei lucio Time (Source) Location / Volume Laterality Blood Venipuncture / 05/20/2020 11:32 1 Unknown AM SAND CAR WORKER 11:32 AM SAND CAR WORKER Vikas Donohue MD LAB_1 Performing Organization Address City/State/ZIP Code Phon e Number [facility] [address] [address] ESR - Sedimentation Rate (05/20/2020 11:32 AM SAND CAR WORKER) Patholo gist Method Time Signature Sedimentation Rate 5 0 - 20 05/20/2020 [facility] mm/hr 12:56 PM [facility] Specimen Anatomical Collection Method / Collection Time Recei lucio Time (Source) Location / Volume Laterality Blood Venipuncture / 05/20/2020 11:32 1 Unknown AM SAND CAR WORKER 11:32 AM SAND CAR WORKER Vikas Donohue MD LAB_1 Performing Organization Address City/[facility]/ZIP Code Phon e Number [facility] [address] [place] [address] CRP - C Reactive Protein (05/20/2020 11:32 AM SAND CAR WORKER) P athologist Signature C-Reactive 0.5 0.0 - 0.7 05/20/2020 [facility] Protein mg/dL 12:22 PM SAND CAR [facility]ER [facility] Specimen Anatomical Collection Method / Collection Time Recei lucio Time (Source) Location / Volume Laterality Blood Venipuncture / 05/20/2020 11:32 1 Unknown AM SAND CAR WORKER 11:32 AM SAND CAR WORKER Vikas Donohue MD LAB_1 Performing Organization Address City/[facility]/ZIP [facility] Phon e Number [facility] [address] [place] [address] documented in this encounter Visit Diagnoses Diagnosis Rheumatoid arthritis, involving unspecif ied site, unspecified whether rheumatoid factor present (HRC) Arthralgia, unspecified joint Chronic pain syndrome documented in this encounter Care Teams Loin Puller Relationship Specialty Start Date End Date Needs Pcp, Assignment PCP - General 05/20/20 [place] [address] documented as of this encounter
--- OUTSIDE RECORDS SUMMARY | 2022-02-02 11:06 | XMS_ITS | Encounter Summary ---
:1980 Author Organization [place] [facility] Address [address] [place] [address] Care Team Providers Name Role Phone Needs Pcp, Assignment Primary Care Provider Reason for Visit Procedure/Equipment (Routine) - Incomplete Specialty Diagnoses / Procedures Referred By Contact Refer red To Contact Diagnoses Rheumatoid arthritis, involving unspecified site, unspecified whether rheumatoid factor present (HRC) Arthralgia, unspecified joint Chronic pain syndrome Vikas Donohue MD Procedures XR Feet 1 View Bilat Arthritis [address] [place], [place] [address] Referral ID Status Reason Start Date Expiration Date Visits V isits Requested Authorized [id number] Incomplete 05/20/2020 08/19/2021 1 1 Encounter Details Date Type Department Care Team Description 05/20/2020 [facility] [place] Vikas Donohue MD Rheumatoid arthritis, involving unspecif ied site, unspecified whether rheumatoid factor present (HRC); Procedure Radiology [address] Arthralgia, unspecified join t; [address] [facility] [place] [address] [phone] Social History Tobacco Use Types Packs/Day Years Used Date Smoking Tobacco: Every Day Sex Assigned at Date Recorded Not on file documented as of this encounter Progress Notes Vikas Donohue MD - 05/20/2020 11:40 AM CST X-ray of the feet shows presence of degenerative changes/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 LOPER documented in this encounter Plan of Treatment Not on filedocumented as of this encounter Procedures Procedure Name Priority Date/Time Associated Diagnosis Comme nts XR FEET 1 VIEW Routine 05/20/2020 12:09 PM Rheumatoid Result s for this BILAT ARTHRITIS SCALLOPER arthritis, involving proc edure are in unspecified site, the result s unspecified whether section. rheumatoid factor present (HRC) Arthralgia, unspecified join t Chronic pain syndrome documented in this encounter Results XR Feet 1 View Bilat Arthritis (05/20/2020 12:09 PM SCALLOPER) Anatomical Region Laterality Modality Lower Extremity, Foot Digital Radiograph y Specimen (Source) Anatomical Collection Method Collection Time Re ceived Time Location / / Volume Laterality 05/20/2020 11:49 AM SCALLOPER Impressions 05/20/2020 12:25 PM SCALLOPER COMPARISON: ??None. FINDINGS: ??Mild to moderate osteoarthri tis in the bilateral talonavicular joints. Additional mild degenerative changes in the midfoot bilaterally. No evidence of significant arthropathy in the MTP join ts or IP joints. No destructive or erosi ve arthropathy. Procedure Note Chris Morton MD - 05/20/2020For matting of this note might be different from the original. IMPRESSION COMPARISON: None. FINDINGS: Mild to moderate osteoarthriti s in the bilateral talonavicular joints. Additional mild degenerative changes in the midfoot bilaterally. No evidence of significant arthropathy in the MTP joints or IP joints. No destructive or erosive arthropathy. Vikas Donohue MD RAD GD documented in this encounter Visit Diagnoses Diagnosis Rheumatoid arthritis, involving unspecif ied site, unspecified whether rheumatoid factor present (HRC) Arthralgia, unspecified joint Chronic pain syndrome documented in this encounter Care Teams Corporate Event Planner Relationship Specialty Start Date End Date Needs Pcp, Assignment PCP - General 05/20/20 [place] [address] documented as of this encounter
--- OUTSIDE RECORDS SUMMARY | 2022-02-02 11:06 | XMS_ITS | Encounter Summary ---
:1980 Author Organization [facility] Address [address] [place] [address] Care Team Providers Name Role Phone Needs Pcp, Assignment Primary Care Provider Reason for Visit Procedure/Equipment (Routine) - Incomplete Specialty Diagnoses / Procedures Referred By Contact Refer red To Contact Diagnoses Rheumatoid arthritis, involving unspecified site, unspecified whether rheumatoid factor present (HRC) Arthralgia, unspecified joint Vikas Donohue MD Procedures XR Knee Bilat 3 Views [address] [place], [place] [address] Referral ID Status Reason Start Date Expiration Date Visits V isits Requested Authorized [id number] Incomplete 05/20/2020 08/19/2021 1 1 Encounter Details Date Type Department Care Team Description 05/20/2020 Ancillary [place] Vikas Donohue MD Rheumatoid arthritis, involving unspecif ied site, unspecified whether rheumatoid factor present (HRC); Procedure Radiology [address] Arthralgia, unspecified join t [address] [place] [id number] Social History Tobacco Use Types Packs/Day Years Used Date Smoking Tobacco: Every Day Sex Assigned at Date Recorded Not on file documented as of this encounter Progress Notes Vikas Donohue MD - 05/20/2020 11:50 AM CST X-ray of the knees shows mild joint effusion in the left knee. No significant arthritis. E CUTTING SUPERVISOR documented in this encounter Plan of Treatment Not on filedocumented as of this encounter Procedures Procedure Name Priority Date/Time Associated Diagnosis Comme nts XR KNEE BILAT 3 Routine 05/20/2020 12:10 PM Rheumatoid Resul ts for this VIEWS STAVE CUTTING SUPERVISOR arthritis, involving procedu re are in unspecified site, the result s unspecified whether section. rheumatoid factor present (HRC) Arthralgia, unspecified joint documented in this encounter Results XR Knee Bilat 3 Views (05/20/2020 12:10 PM STAVE CUTTING SUPERVISOR) Anatomical Region Laterality Modality Lower Extremity, Knee Digital Radiograph y Specimen (Source) Anatomical Collection Method Collection Time Re ceived Time Location / / Volume Laterality 05/20/2020 11:50 AM STAVE CUTTING SUPERVISOR Impressions 05/20/2020 12:26 PM STAVE CUTTING SUPERVISOR COMPARISON: ??None. FINDINGS: ?? Right knee: Unremarkable examination Left knee: Small joint effusion. The rem ainder of the exam is unremarkable. ?? Procedure Note Chris Morton MD - 05/20/2020For matting of this note might be different from the original. IMPRESSION COMPARISON: None. FINDINGS: Right knee: Unremarkable examination Left knee: Small joint effusion. The rem ainder of the exam is unremarkable. Vikas Donohue MD RAD GD documented in this encounter Visit Diagnoses Diagnosis Rheumatoid arthritis, involving unspecif ied site, unspecified whether rheumatoid factor present (HRC) Arthralgia, unspecified joint documented in this encounter Care Teams Ladder Operator Relationship Specialty Start Date End Date Needs Pcp, Assignment PCP - General 05/20/20 [place] [address] documented as of this encounter
--- OUTSIDE RECORDS SUMMARY | 2022-02-02 11:06 | XMS_ITS ---
:1980 Author Care Team Providers Name Role Phone HAY ARMIJO OTHER [phone] Allergies Code Code System Name Reaction Severity Status Onset [id number] RxNorm Latex Rash ? Active ? 7052 RxNorm Morphine Vomiting ? Active ? 7258 RxNorm Naproxen ? ? Active ? Medications Name Status Start Date Stop Date ? ? estradiol 0.01% (0.1 mg/gram) vaginal cream Active ? Not available fluconazole 150 mg tablet Active ? Not av ailable TAKE 1 TABLET (150 MG) BY ORAL ROUTE EVERY 3RD DAY PRN- REPEAT IN 3 DAYS PRN lamotrigine 100 mg tablet Active ? Not av ailable lamotrigine 200 mg tablet Active ? Not av ailable Take 1 tablet twice a day by oral route. lithium carbonate 300 mg capsule Active ? Not available lithium carbonate 300 mg tablet Active ? Not available Take 4 tablets every day by oral route at bedtime. lithium carbonate ER 300 mg tablet,extended release Active ? Not available metronidazole 0.75 % (37.5 mg/5 gram) vaginal gel Active ? Not available Insert 1 applicatorful every day by vaginal route. minocycline 100 mg capsule Active ? Not a vailable olanzapine 10 mg tablet Active ? Not avai lable Take 1 tablet every day by oral route. olanzapine 15 mg tablet Active ? Not avai lable pantoprazole 40 mg tablet,delayed release Active ? Not available Take 1 tablet every day by oral route in the morning. propranolol 10 mg tablet Active ? Not anabella ilable TAKE 1/2 TO 1 TABLETS (5-10MG) BY ORAL ROUTE PO DAILY PRN spironolactone 50 mg tablet Active ? Not available trazodone 50 mg tablet Active ? Not avail able Notes: Standing orders per facilities protocols. Problems Name Status Onset Date Source ? Bipolar I Disorder Active ? ? Generalized Anxiety Disorder Active ? ? Borderline Personality Disorder Active ? ? Posttraumatic Stress Disorder Active ? ? Arthritis Active ? ? Fibromyalgia Active ? ? Cigarette Smoker Active ? ? Procedures Date Name Performed by ? ? Procedure on Ankle Information not avai lable Notes: Ankle reconstruction Notes: Sinus Surgery Results Lab Results None recorded. Past Encounters None recorded. Social History Tobacco Smoking Status Heavy Tobacco Smoker (1 pack per Not es: 1 PPD x 20 years day) Vaccine List None recorded. Plan of Care Reminders Provider Appointments None recorded. ? ? Lab None recorded. ? ? Referral None recorded. ? ? Procedures None recorded. ? ? Surgeries None recorded. ? ? Imaging None recorded. ? ? Vitals Height Weight BMI Blood Pressure 5 ft 6 in 205 lbs 33.1 kg/m2 114/82 mm[Hg]
--- OUTSIDE RECORDS SUMMARY | 2022-02-02 11:06 | XMS_ITS | Encounter Summary ---
:1980 Author Organization [facility] Address [address] [place] [address] Care Team Providers Name Role Phone Needs Pcp, Assignment Primary Care Provider Reason for Referral Procedure/Equipment (Routine) - Incomplete Specialty Diagnoses / Procedures Referred By Contact Refer red To Contact Diagnoses Rheumatoid arthritis, involving unspecified site, unspecified whether rheumatoid factor present (HRC) Arthralgia, unspecified joint Vikas Donohue MD Procedures XR Knee Bilat 3 Views [address], [place] [address] Referral ID Status Reason Start Date Expiration Date Visits V isits Requested Authorized [id number] Incomplete 05/20/2020 08/19/2021 1 1 [facility] Procedure/Equipment (Routine) - Incomplete Specialty Diagnoses / Procedures Referred By Contact Refer red To Contact Diagnoses Rheumatoid arthritis, involving unspecified site, unspecified whether rheumatoid factor present (HRC) Arthralgia, unspecified joint Chronic pain syndrome Vikas Donohue MD Procedures XR Pelvis W Lt Lateral Hip [address], [place] [address] Referral ID Status Reason Start Date Expiration Date Visits V isits Requested Authorized [id number] Incomplete 05/20/2020 08/19/2021 1 1 [facility] Procedure/Equipment (Routine) - Incomplete Specialty Diagnoses / Procedures Referred By Contact Refer red To Contact Diagnoses Rheumatoid arthritis, involving unspecified site, unspecified whether rheumatoid factor present (HRC) Arthralgia, unspecified joint Chronic pain syndrome Vikas Donohue MD Procedures XR Hands 1 View Bilat Arthritis [address], [place] [address] Referral ID Status Reason Start Date Expiration Date Visits V isits Requested Authorized [id number] Incomplete 05/20/2020 08/19/2021 1 1 [facility] Procedure/Equipment (Routine) - Incomplete Specialty Diagnoses / Procedures Referred By Contact Refer red To Contact Diagnoses Rheumatoid arthritis, involving unspecified site, unspecified whether rheumatoid factor present (HRC) Arthralgia, unspecified joint Chronic pain syndrome Vikas Donohue MD Procedures XR Feet 1 View Bilat Arthritis [address], [place] [address] Referral ID Status Reason Start Date Expiration Date Visits V isits Requested Authorized [id number] Incomplete 05/20/2020 08/19/2021 1 1 [facility] Reason for Visit Reason Comments CONSULT Encounter Details Date Type Department Care Team Description 05/20/2020 Office Visit Vikas Kemp MD Rheumatoid arthritis, involving unspecif ied site, unspecified whether rheumatoid factor present (HRC) (Primary Dx); Rheumatology [address] [place] [address] Arthralgia, unspecified join t; [address] [facility] Chronic pain syndrome; [place] [address] [place], [place] Fibromyalgia [phone] [id number] Social History Tobacco Use Types Packs/Day Years Used Date Smoking Tobacco: Every Day Sex Assigned at Date Recorded Not on file documented as of this encounter Last Filed Vital Signs Vital Sign Reading Time Taken Comments Blood Pressure 127/72 05/20/2020 10:45 AM [facility] Pulse 83 05/20/2020 10:45 AM [employer] Temperature 37.1 ??C (98.8 ??F) 05/20/2020 10:45 AM [facility] Respiratory Rate - - Oxygen Saturation - - Inhaled Oxygen Concentration - - Weight 79.8 kg (176 lb) 05/20/2020 10:45 AM [facility] Height 167.6 cm (5' 6) 05/20/2020 10:45 AM [facility] Body Mass Index 28.41 05/20/2020 10:45 AM [employer] documented in this encounter Patient Instructions Patient InstructionsVikas Donohue MD - 05/20/2020 11:00 AM CST Will do blood work today to investigate for an active inflammatory arthritis. There is a component of Chronic Pain Syndrome / Fibromyalgia. Fibromyalgia is common in patients with high levels of stress, depression, anxiety and PTSD. The treatment is challenging and multimodality approach is recommended including physical therapy, pain management, relaxation techniques, water therapy, yoga, ines chi, acupuncture, mental health practitioner. [employer] documented in this encounter Progress Notes Vikas Donohue MD - 05/20/2020 11:00 AM CST Rheumatology New Patient/Consult Note Referral: PATIENT SELF REFERRAL, [place] [address] Chief Complaint Patient presents with ??? CONSULT HPI: Marlin Plummer is a 40 y.o. female with medical history as stated below presents today with a chief complaint of generalized arthralgia and myalgia. She is coming today accompanied by her . Patient has a history of juvenile rheumatoid arthritis diagnosed when she was on her 3rd grade 1985.At that time she was having chronic right ankle pain and swelling. A few years later she had fusion of the left ankle. Later on patient was treated as an adult rheumatoid arthritis. She has tried methotrexate, Plaquenil, Enbrel injections. Last time she used Enbrel was around 1999. Has been on Plaquenil and methotrexate on and off. Does not remember when was the last time she was methotrexate. Use Plaquenil until 3 years ago. Patient has not had insurance and she has not been able to follow with anyone. Last time she saw hoop maker helper machine was more than 10 years ago. Patient has history of depression, anxiety, bipolar disorder and history of fibromyalgia. Complains of generalized joint pain including hands, Patricia 0, hips, neck, left shoulder, knees. Recently had a history of left eye inflammation for which she had used topical steroids. Complains of pain all day long. No significant change from light activities. Worsen if she does strenuous physical activities. Morning stiffness lasting 1-2 hours. Does not sleep well, feels tired in the morning. Complains of fogginess in her thinking. Active depression anxiety. Has history of gastric ulcers. Was recommended to avoid NSAIDs therapy. Currently on gabapentin 1200mg 3 times a day. On Lexapro, hydroxyzine, Risperdal. Previously tried Lyrica for many years. Recently patient took a short course of prednisone with some relief in her symptoms. Symptoms got worsen after stopping prednisone. Family history of arthritis in her sister, does not know what type. ROS: Comprehensive review of systems form filled out by the patient for today's visit was reviewed, sent to SDOC, and is as noted above and/or notable for: Nausea, diarrhea, heartburn, headaches, generalized joint pain. Dry eyes. Patient Active Problem List Diagnosis ??? Alcoholic (HRC) ??? Allergic rhinitis ??? Anorexia nervosa, restricting type ??? Bipolar affective disorder, rapid cycling (HRC) ??? Bipolar disorder with current episode depressed (HRC) ??? Borderline personality disorder (HRC) ??? Chronic post-traumatic stress disorder (PTSD) (HRC) ??? Controlled substance agreement signed ??? Dyssomnia ??? Fibromyalgia ??? Generalized anxiety disorder (HRC) ??? GERD (gastroesophageal reflux disease) ??? Hidradenitis suppurativa ??? Hypertriglyceridemia (HRC) ??? IUD (intrauterine device) in place ??? Migraine headache ??? Nicotine dependence, cigarettes, with other nicotine-induced disorders (HRC) ??? Obesity (BMI 30-39.9) (HRC) ??? Raynaud's disease (HRC) ??? Social anxiety disorder (HRC) ??? Tobacco use disorder (HRC) ??? Rheumatoid arthritis (HRC) History reviewed. No pertinent past medical history. History reviewed. No pertinent surgical history. Outpatient Encounter Medications as of 05/20/2020 Medication Sig Dispense Refill ??? acamprosate (CAMPRAL) 333 MG tablet ??? celecoxib (CELEBREX) 200 MG capsule Take 1 Capsule by mouth two times daily as needed for Pain. 60 Capsule 5 ??? divalproex (DEPAKOTE ER) 500 MG 24 hour release tablet Take 1,000 mg by mouth two times a day. ??? escitalopram (LEXAPRO) 10 MG tablet TAKE ONE-HALF TABLET BY MOUTH EVERY DAY FOR 6 DAYS THEN TAKEONE TABLET BY MOUTH EVERY DAY ??? gabapentin (NEURONTIN) 600 MG tablet Take 1,200 mg by mouth three times a day. ??? gemfibrozil (LOPID) 600 MG tablet ??? hydrOXYzine HCl (ATARAX) 25 MG tablet Take 25 mg by mouth two times daily as needed. ??? hyoscyamine (LEVBID) 0.375 MG 12 hour release tablet Take 375 mcg by mouth every 12 hours. ??? metroNIDAZOLE (METROGEL) 0.75 % gel ??? minocycline (MINOCIN) 100 MG capsule Take 100 mg by mouth two times a day. ??? omeprazole (PRILOSEC) 20 MG capsule ??? ondansetron (ZOFRAN-ODT) 8 MG disintegrating tablet DISSOLVE ONE TABLET ON THE TONGUE THREE TIMES A DAY NEEDED FOR NAUSEA / VOMITING ??? pantoprazole (PROTONIX) 40 MG tablet Take 40 mg by mouth two times a day before meals. ??? risperiDONE (RISPERDAL) 1 MG tablet Take 1 mg by mouth daily. ??? risperiDONE (RISPERDAL) 2 MG tablet Take 2 mg by mouth every evening. ??? spironolactone (ALDACTONE) 50 MG tablet Take 50 mg by mouth daily. ??? XIFAXAN 550 MG tablet No facility-administered encounter medications on file as of 05/20/2020. Allergies Allergen Reactions ??? Latex Hives ??? Feldene [Piroxicam] Hives ??? Eszopiclone Nausea And Vomiting ??? Morphine Unknown ??? Naproxen Unknown Social History Substance and Sexual Activity Alcohol Use None Social History Tobacco Use Smoking Status Current Every Day Smoker EXAM Blood pressure 127/72, pulse 83, temperature 98.8 ??F (37.1 ??C), temperature source Temporal Artery, height 5' 6 (1.676 m), weight 176 lb (79.8 kg). General Appearance: Pleasant, alert, appropriate appearance for age. No acute distress HEENT Exam: Normocephalic, atraumatic, clear sclera, moist oral mucosa, no ulcers Neck Exam: Supple, no masses or nodes. Chest/Respiratory Exam: Normal chest wall and respirations. Clear to auscultation. Cardiovascular Exam: Regular rate and rhythm, no murmur. Musculoskeletal Exam: Normal muscle bulk. Tenderness in the upper shoulders, paraspinal muscles, trochanteric area bilaterally. No signs of active synovitis. No joint effusion. Full range of motion in all 4 extremities. Normal muscle strength in all 4 extremities. Skin: no rash Neurologic Exam: Nonfocal, normal gross motor movement, tone, and coordination. No tremor. Assessment and Plan: Previous blood work at [facility] in 2012 showed negative OSMIN. Patient with history of JRA and later on adult rheumatoid arthritis was previously treated with methotrexate, Plaquenil and Enbrel on off. Last time she was Plaquenil was more than 3 years ago. Patient has not seen Rheumatology in the last 10 years. Complains of generalized joint pain, generalized body pain. Does not sleep well, feels tired and stiff in the morning. Fogginess in her thinking. She has history of depression, anxiety and bipolar disorder. History of fibromyalgia. There is a component of chronic pain syndrome/fibromyalgia overwhelming the symptoms. Recommend establishing care today. Recommend doing blood work to further investigate for an active inflammatory arthritis. Recommend doing arthritis survey of both hands and feet. Recommend doing x-rays of the left hip and both knees. Based on the test results will decide on the next best step in the management including considering restarting immunosuppressive therapy with Plaquenil or methotrexate. We may consider short course of prednisone tapering dose. Patient was counseled about fibromyalgia, including concepts of pathophysiology and the available treatment options. She was advised that Fibromyalgia is now understood to be a disorder of the brain and not a disorderof the muscles, ligaments, tendons and joints. Fibromyalgia is common in patients with high levels of stress, depression, anxiety and PTSD. The treatment is challenging and multimodality approach is recommended including physical therapy, pain management, relaxation techniques, water therapy, yoga, ines chi, acupuncture, mental health practitioner. Treatment is directed at the brain and is best supervised by a mental health practitioner in the context of depression. Recommend lifestyle renewal program here at [facility]. Recommend discussing with PCP Roland or Travis. For her arthralgia recommend trying Celebrex 200 mg 1 to twice daily as needed for pain. Previously patient has a history of gastric ulcers and it was recommended to avoid NSAIDs. Recommend trying Celebrex with meals and also taking Prilosec once a day to protect the lining of the stomach. Recommend follow-up appointment in 3-4 months. Thank you for letting me participate in the care of this patient. Please don't hesitate to contact me if you have any questions. Total of 60 minutes was spent reviewing previous medical records, counseling patient and charting. Vikas Donohue. Rheumatology [facility] 05/20/2020 This note consists of symbols derived from keyboarding, and voice recognition software. As a result,wrong word or '[id number]' substitutions may have occurred due to the inherent limitations of voice recognition software. There may be errors in the script that have gone undetected. Please consider this when interpreting information found in this chart. [employer] documented in this encounter Plan of Treatment Not on filedocumented as of this encounter Results XR Pelvis W Lt Lateral Hip (05/20/2020 12:11 PM [employer]) Anatomical Region Laterality Modality Pelvis, Hip Digital Radiography Specimen (Source) Anatomical Collection Method Collection Time Re ceived Time Location / / Volume Laterality 05/20/2020 11:51 AM [employer] Impressions 05/20/2020 12:26 PM [employer] COMPARISON: ??None. FINDINGS: ??There is no evidence of an a cute fracture or dislocation. The hip joint spaces are preserved. Small left os acetabuli. IUD noted in the pelvis. Procedure Note Govind Gardner MD - 05/20/2020Fo rmatting of this note might be different from the original. IMPRESSION COMPARISON: None. FINDINGS: There is no evidence of an acu te fracture or dislocation. The hip joint spaces are preserved. Small left os acetabuli. IUD noted in the pelvis. Vikas Donohue MD RAD GD XR Knee Bilat 3 Views (05/20/2020 12:10 PM [employer]) Anatomical Region Laterality Modality Lower Extremity, Knee Digital Radiograph y Specimen (Source) Anatomical Collection Method Collection Time Re ceived Time Location / / Volume Laterality 05/20/2020 11:50 AM [employer] Impressions 05/20/2020 12:26 PM [employer] COMPARISON: ??None. FINDINGS: ?? Right knee: Unremarkable [...] is unremarkable. Vikas Donohue MD RAD GD XR Hands 1 View Bilat Arthritis (05/20/2020 12:10 PM [employer]) Anatomical Region Laterality Modality Upper Extremity, Hand Digital Radiograph y Specimen (Source) Anatomical Collection Method Collection Time Re ceived Time Location / / Volume Laterality 05/20/2020 11:50 AM [employer] Impressions 05/20/2020 12:30 PM [employer] COMPARISON: ??None. FINDINGS: ??Bones are adequately mineral ized. No periarticular osteopenia. Chronic deformity about the left distal radioulnar joint including significant ulnar minus variance, radiocarpal joint, and proximal intercarpal joints which may be post infectious/inflammatory or posttraumatic. The hands are otherwise symmetric. A tin y calcification projects over the soft tissues of the right distal third digit. Procedure Note Vadim Torres MD - 05/20/2020Forma tting of this note might be different from the original. IMPRESSION COMPARISON: None. FINDINGS: Bones are adequately mineraliz ed. No periarticular osteopenia. Chronic deformity about the left distal radioulnar joint including significant ulnar minus variance, radiocarpal joint, and proximal intercarpal joints which may be post infectious/inflammatory or posttraumatic. The hands are otherwise symmetric. A tin y calcification projects over the soft tissues of the right distal third digit. Vikas Donohue MD RAD GD XR Feet 1 View Bilat Arthritis (05/20/2020 12:09 PM [employer]) Anatomical Region Laterality Modality Lower Extremity, Foot Digital Radiograph y Specimen (Source) Anatomical Collection Method Collection Time Re ceived Time Location / / Volume Laterality 05/20/2020 11:49 AM [employer] Impressions 05/20/2020 12:25 PM [employer] [facility] COMPARISON: ??None. FINDINGS: ??Mild to moderate osteoarthri [...] erosive arthropathy. Vikas Donohue MD RAD GD Comp Metabolic Panel (05/20/2020 11:32 AM [facility] [facility]) athologist Signature Sodium 138 136 - 145 05/20/2020 [facility] mmol/L 12:22 PM [facility] Potassium 4.1 3.5 - 5.1 05/20/2020 [facility] mmol/L 12:22 PM [facility] Chloride 102 98 - 109 05/20/2020 [facility] mmol/L 12:22 PM [facility] CO2 26 20 - 29 05/20/2020 [facility] mmol/L 12:22 PM [facility] Anion Gap 10 7 - 16 05/20/2020 [facility] mmol/L 12:22 PM [facility] Calcium 9.4 8.4 - 10.4 05/20/2020 [facility] mg/dL 12:22 PM [facility] BUN 10 7 - 26 05/20/2020 [facility] mg/dL 12:22 PM [facility] Creatinine 0.80 0.55 - 05/20/2020 [facility] 1.02 mg/dL 12:22 PM [facility] GFR, Estimated >60 >60 05/20/2020 [facility] mL/min/1.7 12:22 PM [facility] 3m2 Alkaline 49 40 - 150 05/20/2020 [facility] Phosphatase U/L 12:22 PM [facility] AST (SGOT) 17 10 - 40 05/20/2020 [facility] U/L 12:22 PM [facility] ALT (SGPT) 20 0 - 55 U/L 05/20/2020 [facility] 12:22 PM [facility] Bilirubin, Total 0.2 0.2 - 1.2 05/20/2020 [facility] mg/dL 12:22 PM [facility] Protein, Total 6.8 6.4 - 8.3 05/20/2020 [facility] g/dL 12:22 PM [facility] Albumin 4.2 3.5 - 5.0 05/20/2020 [facility] g/dL 12:22 PM [facility] Glucose 95 70 - 100 05/20/2020 [facility] mg/dL 12:22 PM [facility] Comment: The given reference range is fo r the fasting state. Non-fasting reference range for glucose is 70 - 180 mg/dL. Hours Fasting 12 05/20/2020 12:22 PM [facility] Specimen Anatomical Collection Method / Collection Time Recei lucio Time (Source) Location / Volume Laterality Blood Venipuncture / 05/20/2020 11:32 1 Unknown AM [facility] 11:32 AM [facility] Vikas Donohue MD LAB_1 Performing Organization Address City/State/ZIP Code Phon e Number [facility] [address] [place] [address] RHF - Rheumatoid Factor (05/20/2020 11:32 AM [facility]) Analysis Performed At Patho logist Time Signature Rheumatoid <15 <=30 IU/mL 05/20/2020 [facility], 4:13 PM [facility] Quantitative Specimen Anatomical Collection Method / Collection Time Recei lucio Time (Source) Location / Volume Laterality Blood Venipuncture / 05/20/2020 11:32 1 Unknown AM [facility] 11:32 AM [facility] Vikas Donohue MD LAB_1 Performing Organization Address City/State/ZIP Code Phon e Number [facility] [address] [place] [address] HLA B27 (05/20/2020 11:32 AM [facility]) P athologist Signature HLA B27 Negative Negative 05/22/2020 [facility] 10:06 AM [facility] Specimen Anatomical Collection Method / Collection Time Recei lucio Time (Source) Location / Volume Laterality Blood Venipuncture / 05/20/2020 11:32 1 Unknown AM [facility] 11:32 AM [facility]ING [facility] - 05/22/2020 10:[address] This test was developed and the performance characteristics were determined by [facility]. It has not been cleared or approved by t U.S. Food and Drug Administration. The FDA sarkar s determined that such clearance or approv al is not necessary. Vikas Donohue MD LAB_1 Performing Organization Address City/State/ZIP Code Phon e Number [address] [address] CCPIG - Cyclic Citrullinated Peptide AB (05/20/2020 11:32 AM [facility]) [facility] gist Method Time Signature Anti-CCP Antibody 1 <7 U/mL 05/21/2020 [facility] 11:49 AM [facility] Anti-CCP Antibody Negative Negative 05/21/2020 [facility] Interpretation 11:49 AM [facility] Specimen Anatomical Collection Method / Collection Time Recei lucio Time (Source) Location / Volume Laterality Blood Venipuncture / 05/20/2020 11:32 1 Unknown AM [facility] 11:32 AM [facility] Vikas Donohue MD LAB_1 Performing Organization Address City/[facility]/ZIP Code Phon e Number [facility] [address] [address] (ABNORMAL) ELCP - Electrophoresis Dupo To JONO,Serum (05/20/2020 11:32 AM [facility]) Component Value Ref Test Analysis Performed At [facility] Range Method Time Signature Total Protein 6.5 6.4 - [facility] 8.3 1 3:11 PM [facility]AL [facility] g/dL [facility] Albumin 4.3 3.4 - [facility] 4.8 1 3:11 PM [facility] g/dL [facility] Alpha 1 0.3 0.2 - [facility] 0.5 1 3:11 PM [facility] g/dL [facility] Alpha 2 0.8 0.5 - [facility] 1.1 1 3:11 PM [facility] g/dL [facility] Beta 0.7 0.6 - [facility] 1.1 1 3:11 PM [facility] g/dL [facility] Gamma 0.4 (L) 0.7 - [facility] 1.6 1 3:11 PM [facility] g/dL [facility] Monoclonal 0.0 <=0.0 [facility] Will g/dL 1 3:11 PM [facility] Interpretation Hypogammaglobulinemia is pre sent. In adults, this may reflect the presence of immunodeficiency, chemotherapy, or B cell neoplasm. [facility] Consider urine immunofixatio n to rule out Bence Solares proteinuria. Serum immunofixation and measurement of serum IgA, IgG and IgM may also be indicated. 1 3:11 PM [facility]TRAL [facility] Additional Not indicated. [facility] Testing 1 3:11 PM [facility]ENTRAL [facility] Signed Out By [facility] 1 3:11 PM [facility]TRAL LAB [facility] Specimen Anatomical Collection Method / Collection Time Recei lucio Time (Source) Location / Volume Laterality Blood Venipuncture / 05/20/2020 11:32 1 Unknown AM [facility] 11:32 AM [facility] Vikas Donohue MD LAB_1 Performing Organization Address City/[facility]/ZIP Code Phon e Number [facility] [address] [address] ESR - Sedimentation Rate (05/20/2020 11:32 AM [facility]) Patholo gist Method Time Signature Sedimentation Rate 5 0 - 20 05/20/2020 [facility] mm/hr 12:56 PM [facility] Specimen Anatomical Collection Method / Collection Time Recei lucio Time (Source) Location / Volume Laterality Blood Venipuncture / 05/20/2020 11:32 1 Unknown AM [facility] 11:32 AM [facility] Vikas Donohue MD LAB_1 Performing Organization Address City/[facility]/ZIP Code Phon e Number [facility] [address] [place], [place] [phone] CRP - C Reactive Protein (05/20/2020 11:32 AM [facility]) P athologist Signature C-Reactive 0.5 0.0 - 0.7 05/20/2020 [facility] Protein mg/dL 12:22 PM [facility] Specimen Anatomical Collection Method / Collection Time Recei lucio Time (Source) Location / Volume Laterality Blood Venipuncture / 05/20/2020 11:32 1 Unknown AM [facility] 11:32 AM [facility] Vikas Donohue MD LAB_1 Performing Organization Address City/State/ZIP Code Phon e Number [facility] [address] [place] [address] documented in this encounter Visit Diagnoses Diagnosis Rheumatoid arthritis, involving unspecif ied site, unspecified whether rheumatoid factor present (HRC) - Primary Arthralgia, unspecified joint Chronic pain syndrome Fibromyalgia Mylagia and myositis, unspecified Rheumatoid arthritis, involving unspecif ied site, unspecified whether rheumatoid factor present (HRC) Arthralgia, unspecified joint Chronic pain syndrome Rheumatoid arthritis, involving unspecif ied site, unspecified whether rheumatoid factor present (HRC) Arthralgia, unspecified joint Chronic pain syndrome Rheumatoid arthritis, involving unspecif ied site, unspecified whether rheumatoid factor present (HRC) Arthralgia, unspecified joint Rheumatoid arthritis, involving unspecif ied site, unspecified whether rheumatoid factor present (HRC) Arthralgia, unspecified joint Chronic pain syndrome documented in this encounter 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
--- OUTSIDE RECORDS SUMMARY | 2022-02-02 11:06 | XMS_ITS | Encounter Summary ---
:1980 Author Organization [facility] Address [address] [place] [address] Care Team Providers Name Role Phone Needs Pcp, Assignment Primary Care Provider Reason for Visit Procedure/Equipment (Routine) - Incomplete Specialty Diagnoses / Procedures Referred By Contact Refer red To Contact Diagnoses Rheumatoid arthritis, involving unspecified site, unspecified whether rheumatoid factor present (HRC) Arthralgia, unspecified joint Chronic pain syndrome Vikas Donohue MD Procedures XR Pelvis W Lt Lateral Hip [address] [place], [place] [address] Referral ID Status Reason Start Date Expiration Date Visits V isits Requested Authorized [id number] Incomplete 05/20/2020 08/19/2021 1 1 Encounter Details Date Type Department Care Team Description 05/20/2020 Ancillary FarsonVikas Craig MD Rheumatoid arthritis, involving unspecif ied site, unspecified whether rheumatoid factor present (HRC); Procedure Radiology [address] [place] Arthralgia, unspecified join t; [address] [facility] [place] [id number] Social History Tobacco Use Types Packs/Day Years Used Date Smoking Tobacco: Every Day Sex Assigned at Date Recorded Not on file documented as of this encounter Progress Notes Vikas Donohue MD - 05/20/2020 11:55 AM CST X-ray of the hip is unremarkable. No significant signs of arthritis. ETICS DIRECTOR Vikas Donohue MD - 05/20/2020 11:55 AM CST On the left hip there is a small bone process that is from the the hip joint. This is called Os acetabuli. I am not sure if this can be the reason of the left hip pain. Recommend discussing this with an orthopedic doctor. ETICS DIRECTOR documented in this encounter Plan of Treatment Not on filedocumented as of this encounter Procedures Procedure Name Priority Date/Time Associated Diagnosis Comme nts XR PELVIS W LT Routine 05/20/2020 12:11 PM Rheumatoid Result s for this LATERAL HIP DIETETICS DIRECTOR arthritis, involving procedu re are in unspecified site, the result s unspecified whether section. rheumatoid factor present (HRC) Arthralgia, unspecified join t Chronic pain syndrome documented in this encounter Results XR Pelvis W Lt Lateral Hip (05/20/2020 12:11 PM DIETETICS DIRECTOR) Anatomical Region Laterality Modality Pelvis, Hip Digital Radiography Specimen (Source) Anatomical Collection Method Collection Time Re ceived Time Location / / Volume Laterality 05/20/2020 11:51 AM DIETETICS DIRECTOR Impressions 05/20/2020 12:26 PM DIETETICS DIRECTOR COMPARISON: ??None. FINDINGS: ??There is no evidence [...] the pelvis. Vikas Donohue MD RAD GD documented in this encounter Visit Diagnoses Diagnosis Rheumatoid arthritis, involving unspecif ied site, unspecified whether rheumatoid factor present (HRC) Arthralgia, unspecified joint Chronic pain syndrome documented in this encounter Care Teams Airplane Gastank Liner Assembler Relationship Specialty Start Date End Date Needs Pcp, Assignment PCP - General 05/20/20 [place] [address] documented as of this encounter
--- OUTSIDE RECORDS SUMMARY | 2022-02-02 11:06 | XMS_ITS ---
:1980 External Reference #:[id number] Author Care Team Providers Name Role Phone HAY ARMIJO OTHER [phone] Allergies Code Code System Name Reaction Severity Status Onset 7052 RxNorm Morphine ? ? Active ? 7258 RxNorm Naproxen ? ? Active ? Medications Name Status Start Date Stop Date ? ? acamprosate 333 mg tablet,delayed release Active ? Not available Take 2 tablets 3 times a day by oral route. Benadryl Completed ? 02/23/2020 2 tablet/50 mg PO 3 times per day Depakote 250 mg tablet,delayed release Active ? Not available Take 3 tablets every day by oral route at bedtime. gabapentin 600 mg tablet Active ? Not anabella ilable Take 2 tablets 3 times a day by oral route. gemfibrozil 600 mg tablet Active ? Not av ailable Take 1 tablet twice a day by oral route. hydroxyzine HCl 25 mg tablet Active ? Not available Take 1 tablet twice a day by oral route as needed. hyoscyamine ER 0.375 mg tablet,extended release,12 hr Active ? Not available Take 1 tablet every 12 hours by oral route. omeprazole 20 mg capsule,delayed release Active ? Not available Take 1 capsule every day by oral route. ondansetron 4 mg disintegrating tablet Active ? Not available Place 2 tablets 3 times a day by translingual route as needed. pantoprazole 40 mg tablet,delayed release Active ? Not available Take 1 tablet every day by oral route. sucralfate 1 gram tablet Active ? Not anabella ilable Take 1 tablet 3 times a day by oral route. trazodone Completed ? 02/23/2020 HCL 50 mg tablet (2 tabs/100 mg) take by mouth at bedtime prn trazodone 50 mg tablet Active ? Not avail able Take 2 tablets as needed by oral route at bedtime. Zofran ODT 8 mg disintegrating tablet Completed ? 02/23/2020 PO 3 times per day prn Problems Name Status Onset Date Source ? Bipolar Disorder Active ? ? Mixed Anxiety and Depressive Disorder Active ? ? Borderline Personality Disorder Active ? ? Alcohol Dependence Active ? ? Tobacco Dependence Syndrome Active ? ? Posttraumatic Stress Disorder Active ? ? Gastroesophageal Reflux Disease Active ? ? Diverticulitis Active ? ? Rheumatoid Arthritis Active ? ? Fibromyalgia Active ? ? Procedures Notes: fused left ankle [employer] year [employer] Results Lab Results None recorded. Past Encounters None recorded. Social History Tobacco Smoking Status Heavy Tobacco Smoker (1 pack per day) Vaccine List None recorded. Plan of Care Reminders Provider Appointments None recorded. ? ? Lab None recorded. ? ? Referral None recorded. ? ? Procedures None recorded. ? ? Surgeries None recorded. ? ? Imaging None recorded. ? ? Vitals Height Weight BMI Blood Pressure 5 ft 6 in 166 lbs 26.8 kg/m2 92/80 mm[Hg]
--- OUTSIDE RECORDS SUMMARY | 2022-02-02 11:06 | XMS_ITS | Clinical Summary ---
:1980 Author [facility] Address [address] [place] [address] Care Team Providers Name Role Phone Needs [...] for each transition of care or referral. [facility] Allergies Active Allergy Reactions Severity Noted Date [...] 03/25/2008 Flu Vac Preserv Free (3+yrs) 02/04/2010 [id number] 02/26/2009 Influenza [id number] 02/26/2009 Influenza IIV4 (Quadrivalent) 0.5mL 01/29/2019, 12/18/2017 ([id number]) Influenza, Unspecified Formulation 12/31/2017, 12/18/2016, 1 05/09/2015, 03/06/2011, 03/25/2008 MMR 04/02/1994 PPSV23 (Pneumovax) 12/01/2012 Td (7+ yrs) 07/21/1997 Tdap 09/01/2019, 11/03/2008 Social History Tobacco Use Types Packs/Day Years Used Date Smoking Tobacco: Every Day Sex Assigned at Date Recorded Not on file Last Filed Vital Signs Vital Sign Reading Time Taken Comments Blood Pressure 127/72 05/20/2020 10:45 AM DIRECTOR OF LOSS PREVENTION Pulse 83 05/20/2020 10:45 AM DIRECTOR OF LOSS PREVENTION Temperature 37.1 ??C (98.8 ??F) 05/20/2020 10:45 AM DIRECTOR OF LOSS PREVENTION Respiratory Rate - - Oxygen Saturation - - Inhaled Oxygen Concentration - - Weight 79.8 kg (176 lb) 05/20/2020 10:45 AM DIRECTOR OF LOSS PREVENTION Height 167.6 cm (5' 6) 05/20/2020 10:45 AM DIRECTOR OF LOSS PREVENTION Body Mass Index 28.41 05/20/2020 10:45 AM DIRECTOR OF LOSS PREVENTION Plan of Treatment Health Maintenance Due Date [...] Phone Addre ss Type Group [place] [id number] 2016-Present [address] [address] [place] [address] [address] FRANTZ Milner [address] Care Teams Health Information Clerk Relationship Specialty Start Date End Date Needs Pcp, Assignment PCP - General 05/20/20 [place] [address]
--- OUTSIDE RECORDS SUMMARY | 2022-02-02 11:06 | XMS_ITS | Encounter Summary ---
:1980 Author Organization [facility] Address [address], [place] [address] Care Team Providers Name Role Phone Needs Pcp, Assignment Primary Care Provider Encounter Details Date Type Department Care Team Description 07/12/2021 Lab Visit Maira Lasren y Acute alcoholism (HRC) [address] (Primary Dx) [place] [address] Social History Tobacco Use Types Packs/Day Years Used Date Smoking Tobacco: Every Day Sex Assigned at Date Recorded Not on file documented as of this encounter Plan of Treatment Not on filedocumented as of this encounter Procedures Procedure Name Priority Date/Time Associated Diagnosis Comme nts CHLAMYDIA & GC, Routine 07/12/2021 4:28 PM Acute alcoholism Re sults for this URINE (14 YEARS AND CDT ([facility]) procedur e are in OLDER) the results section. HERPES SIMPLEX Routine 07/12/2021 4:17 PM Acute alcoholism Res ults for this VIRUS 1 AND 2 IGG CDT (HRC) procedure are in the results section. TREPONEMA SCREEN Routine 07/12/2021 4:17 PM Acute alcoholism R esults for this CDT (HRC) procedure are i n the results section. HIV 1/2 AG/AB 4TH Routine 07/12/2021 4:17 PM Acute alcoholism Results for this GEN CDT (HRC) procedure are i n the results section. HEPATITIS B CORE,AB Routine 07/12/2021 4:17 PM Acute alcoholis m Results for this CDT (HRC) procedure are i n the results section. documented in this encounter Results Chlamydia & GC, Urine (14 Years and Older) (07/12/2021 4:28 PM CDT) [facility] Method Time Signature Chlamydia Not Not 07/13/2021 [facility] Trachomatis Detected Detected 12:55 PM CENTRAL LAB STD CDT N. gonorrhoeae Not Not 07/13/2021 [facility] STD Detected Detected 12:55 PM CENTRAL LAB CDT Specimen Anatomical Collection Method Collection Time Receive d Time (Source) Location / / Volume Laterality Urine STD (Urine Non-blood 07/12/2021 4:28 PM 07/12 4:28 for STD) Collection / CDT PM CDT Unknown Narrative [facility] - 07/13/2021 12:55 PM CDT Test performed by Gerontological Nurse Practitioner Mediated Amplification (TMA). Urine Volume submitted was greater than 30 ml. Excess collection volume may decrease test sensitivity. Recollection suggested if clinically indicated. Aki Jarquin MD LAB_1 Performing Organization Address City/State/ZIP Code Phon e Number [facility] C[facility]AL [facility] [address] [address] HIV 1/2 Ag/Ab 4th Generation (07/12/2021 4:17 PM CDT) [facility] Method Time Signature HIV 1/2 Negative Negative 07/12/2021 [facility] Antigen/Antib (Non (Non 10:18 PM LABORATORY jose luis (4th Reactive) Reactive) CDT generation) Comment: HIV-1 p24 Antigen and HIV-1/HIV -2 Antibody not detected Specimen Anatomical Collection Method / Collection Time Recei lucio Time (Source) Location / Volume Laterality Blood Venipuncture / 07/12/2021 4:17 07/12/2021 4:17 Unknown PM CDT PM CDT Aki Jarquin MD LAB_1 Performing Organization Address City/State/ZIP Code Phon e Number [facility] [address] [place] [address] Herpes Simplex Virus 1 and 2 IgG (07/12/2021 4:17 PM CDT) P athologist Signature Herpes Simplex <0.01 IV 07/13/2021 [facility] Virus 1 IgG 10:52 AM CDT LABORATORY Index Comment: The magnitude of the measured r esult, above the cutoff, is not indicative of the amount of antibody present. Herpes Simplex Virus 1 Negative Negative 07/13/2021 10:52 AM [facility] IgG Interpretation CDT LABORATORY Comment: No further testing. No detectab le antibodies to HSV-1 were found. Herpes Simplex Virus 2 0.12 IV 07/13/2021 10:52 AM [facility] IgG Index CDT LABORATORY Herpes Simplex Virus 2 Negative Negative 07/13/2021 10:52 AM [facility] IgG Interpretation CDT LABORATORY Comment: No further testing. No detectab le antibodies to HSV-2 were found. Specimen Anatomical Collection Method / Collection Time Recei lucio Time (Source) Location / Volume Laterality Blood Venipuncture / 07/12/2021 4:17 07/12/2021 4:17 Unknown PM CDT PM CDT Narrative [facility] - 07/13/2021 10:52 AM CDT A negative result generally indicates th at the patient has not been infected, but does not always rule out acute HSV infec tion. If clinical exposure to HSV is suspected despite a negative finding, a second sample should be collected and tested no less than 4 - 6 weeks later. Aki Jarquin MD LAB_1 Performing Organization Address City/[facility] Phon e Number [facility] [address] [place] [address] Treponema Screen (07/12/2021 4:17 PM CDT) [facility] Method Time Signature Treponema Screen 0.032 {s_co_ratio 07/12/2021 [facility] Result } 10:23 PM LABORATORY CDT Treponema Screen Non Non 07/12/2021 [facility] Interpretation Reactive Reactive 10:23 PM LABORATORY CDT Specimen Anatomical Collection Method / Collection Time Recei lucio Time (Source) Location / Volume Laterality Blood Venipuncture / 07/12/2021 4:17 07/12/2021 4:17 Unknown PM CDT PM CDT Aki Jarquin MD LAB_1 Performing Organization Address City/[facility] Phon e Number [facility] [address] [place] [address] Hepatitis B Core Antibody (07/12/2021 4:17 PM CDT) [facility] [employer] Method Time Signature Hepatitis B Negative Negative 07/12/2021 [facility] Core Antibody (Non (Non 10:24 PM LABORATORY Reactive) Reactive) CDT Specimen Anatomical Collection Method / Collection Time Recei lucio Time (Source) Location / Volume Laterality Blood Venipuncture / 07/12/2021 4:17 07/12/2021 4:17 Unknown PM CDT PM CDT Aki Jarquin MD LAB_1 Performing Organization Address City/State/ZIP Code Phon e Number [facility] [address] [place] [address] documented in this encounter Visit Diagnoses Diagnosis Acute alcoholism (HRC) - Primary Acute alcoholic intoxication in alcoholi sm, unspecified documented in this encounter Care Teams Printing Worker Supervisor Relationship Specialty Start Date End Date Needs Pcp, Assignment PCP - General 05/20/20 [place] [address] documented as of this encounter
--- OUTSIDE RECORDS SUMMARY | 2022-02-02 11:06 | XMS_ITS | Encounter Summary ---
:1980 Author Organization [facility] Address [address] [place] [address] Care Team Providers Name Role Phone Needs Pcp, Assignment Primary Care Provider Encounter Details Date Type Department Care Team Description 06/22/2021 Lab Visit [place] Larsen y Acute alcoholism (HRC) [address] (Primary Dx) [place] [address] Social History Tobacco Use Types Packs/Day Years Used Date Smoking Tobacco: Every Day Sex Assigned at Date Recorded Not on file documented as of this encounter Plan of Treatment Not on filedocumented as of this encounter Procedures Procedure Name Priority Date/Time Associated Comments Diagnosis CBC AND DIFFERENTIAL Routine 06/22/2021 2:13 PM Acute alcoholi sm Results for this PANEL CDT (HRC) procedure are i n the results section. COMPLETE BLOOD Routine 06/22/2021 2:13 PM Acute alcoholism Res ults for this COUNT-W/DIFF CDT (HRC) procedure are i n the results section. COMP METABOLIC PANEL Routine 06/22/2021 2:13 PM Acute alcoholi sm Results for this CDT (HRC) procedure are i n the results section. AMYLASE Routine 06/22/2021 2:13 PM Acute alcoholism Resul ts for this CDT (HRC) procedure are i n the results section. MAGNESIUM Routine 06/22/2021 2:13 PM Acute alcoholism Resul ts for this CDT (HRC) procedure are i n the results section. documented in this encounter Results Complete Blood Count-W/Diff (06/22/2021 2:13 PM CDT) P athologist Signature WBC 6.0 3.5 - 10.5 06/22/2021 [place] x10(9)/L 2:24 PM CDT LABORATORY RBC 4.25 3.90 - 06/22/2021 [place] 5.03 2:24 PM CDT LABORATORY x10(12)/L Hemoglobin 13.5 12.0 - 06/22/2021 [place] 15.5 g/dL 2:24 PM CDT LABORATORY HCT 40.5 34.9 - 06/22/2021 [place] 44.5 % 2:24 PM CDT LABORATORY MCV 95.3 80.0 - 06/22/2021 [place] 100.0 fL 2:24 PM CDT LABORATORY MCH 31.8 27.6 - 06/22/2021 [place] 33.3 pg 2:24 PM CDT LABORATORY MCHC 33.3 31.5 - 06/22/2021 [place] 35.2 g/dL 2:24 PM CDT LABORATORY RDW 13.2 11.9 - 06/22/2021 [place] 15.5 % 2:24 PM CDT LABORATORY Platelets 318 150 - 450 06/22/2021 [place] x10(9)/L 2:24 PM CDT LABORATORY Automated NRBC 0 <=0 /100 06/22/2021 [place] WBC 2:24 PM CDT LABORATORY Neutrophil 3.3 1.7 - 7.0 06/22/2021 [place] Absolute 10(9)/L 2:24 PM CDT LABORATORY Lymphocyte 2.1 1.0 - 4.8 06/22/2021 [place] Absolute 10(9)/L 2:24 PM CDT LABORATORY Monocytes 0.4 0.2 - 0.9 06/22/2021 [place] Absolute 10(9)/L 2:24 PM CDT LABORATORY Eosinophil 0.2 0.0 - 0.5 06/22/2021 [place] Absolute 10(9)/L 2:24 PM CDT LABORATORY Basophil 0.0 0.0 - 0.3 06/22/2021 [place] Absolute 10(9)/L 2:24 PM CDT LABORATORY Immature Gran % 0.2 0.0 - 0.5 06/22/2021 [place] % 2:24 PM CDT LABORATORY Specimen Anatomical Collection Method / Collection Time Recei lucio Time (Source) Location / Volume Laterality Blood Venipuncture / 06/22/2021 2:13 06/22/2021 2:13 Unknown PM CDT PM CDT Aki Jarquin MD LAB_1 Performing Organization Address City/State/ZIP Code Phon e Number [facility] [address] [place] [address] Comp Metabolic Panel (06/22/2021 2:13 PM CDT) P athologist Signature Sodium 144 136 - 145 06/22/2021 [facility] mmol/L 8:14 PM CDT LABORATORY Potassium 4.3 3.5 - 5.1 06/22/2021 [facility] mmol/L 8:14 PM CDT LABORATORY Chloride 109 98 - 109 06/22/2021 [facility] mmol/L 8:14 PM CDT LABORATORY CO2 25 20 - 29 06/22/2021 [facility] mmol/L 8:14 PM CDT LABORATORY Anion Gap 10 7 - 16 06/22/2021 [facility] mmol/L 8:14 PM CDT LABORATORY Calcium 10.1 8.4 - 10.4 06/22/2021 [facility] mg/dL 8:14 PM CDT LABORATORY BUN 7 7 - 26 06/22/2021 [facility] mg/dL 8:14 PM CDT LABORATORY Creatinine 0.75 0.55 - 06/22/2021 [facility] 1.02 mg/dL 8:14 PM CDT LABORATORY GFR, Estimated >60 >60 06/22/2021 [facility] mL/min/1.7 8:14 PM CDT LABORATORY 3m2 Alkaline 59 40 - 150 06/22/2021 [facility] Phosphatase U/L 8:14 PM CDT LABORATORY AST (SGOT) 17 10 - 40 06/22/2021 [facility] U/L 8:14 PM CDT LABORATORY ALT (SGPT) 17 0 - 55 U/L 06/22/2021 [facility] 8:14 PM CDT LABORATORY Bilirubin, Total 0.3 0.2 - 1.2 06/22/2021 [facility] mg/dL 8:14 PM CDT LABORATORY Protein, Total 6.9 6.4 - 8.3 06/22/2021 [facility] g/dL 8:14 PM CDT LABORATORY Albumin 4.5 3.5 - 5.0 06/22/2021 [facility] g/dL 8:14 PM CDT LABORATORY Glucose 74 70 - 100 06/22/2021 [facility] mg/dL 8:14 PM CDT LABORATORY Comment: The given reference range is fo r the fasting state. Non-fasting reference range for glucose is 70 - 180 mg/dL. Hours Fasting 1 06/22/2021 8:14 PM CDT ON LICENSE OF [facility] Specimen Anatomical Collection Method / Collection Time Recei lucio Time (Source) Location / Volume Laterality Blood Venipuncture / 06/22/2021 2:13 06/22/2021 2:13 Unknown PM CDT PM CDT Aki Jarquin MD LAB_1 Performing Organization Address City/[facility] Phon e Number [facility] [address] [place] [address] [address], [facility] Magnesium (06/22/2021 2:13 PM CDT) athologist Signature Magnesium 2.0 1.6 - 2.6 06/22/2021 [facility] mg/dL 8:14 PM CDT LABORATORY Specimen Anatomical Collection Method / Collection Time Recei lucio Time (Source) Location / Volume Laterality Blood Venipuncture / 06/22/2021 2:13 06/22/2021 2:13 Unknown PM CDT PM CDT Aki Jarquin MD LAB_1 Performing Organization Address City/[facility] Phon e Number [facility] [address] [place] [address] Amylase (06/22/2021 2:13 PM CDT) P athologist Signature Amylase 42 25 - 125 06/22/2021 [facility] U/L 8:14 PM CDT LABORATORY Specimen Anatomical Collection Method / Collection Time Recei lucio Time (Source) Location / Volume Laterality Blood Venipuncture / 06/22/2021 2:13 06/22/2021 2:13 Unknown PM CDT PM CDT Aki Jarquin MD LAB_1 Performing Organization Address City/[facility] Phon e Number [facility] [address] [place] [address] documented in this encounter Visit Diagnoses Diagnosis Acute alcoholism (HRC) - Primary Acute alcoholic intoxication in alcoholi sm, unspecified documented in this encounter Care Teams Astronomy Department Chair Relationship Specialty Start Date End Date Needs Pcp, Assignment PCP - General 05/20/20 [place] [address] documented as of this encounter
--- OUTSIDE RECORDS SUMMARY | 2022-02-02 11:06 | XMS_ITS | Encounter Summary ---
:1980 Author Organization [facility] Address [address] [place] [address] Care Team Providers Name Role Phone Needs Pcp, Assignment Primary Care Provider Encounter Details Date Type Department Care Team Description 10/11/2020 Notes/Orders [facility] 3850 Family Needs Pcp, Assignment Medicine [facility] [address] [facility] [place] [address] [place] [address] [phone] Social History Tobacco Use Types Packs/Day Years Used Date Smoking Tobacco: Every Day Sex Assigned at Date Recorded Not on file documented as of this encounter Plan of Treatment Not on filedocumented as of this encounter Visit Diagnoses Not on filedocumented in this encounter Care Teams Meat Cutting Teacher Relationship Specialty Start Date End Date Needs Pcp, Assignment PCP - General 05/20/20 [place] [address] documented as of this encounter
--- OUTSIDE RECORDS SUMMARY | 2022-02-02 11:06 | XMS_ITS | Encounter Summary ---
:1980 Author Organization [facility] Address [address] [place] [address] Care Team Providers Name Role Phone Needs Pcp, Assignment Primary Care Provider Reason for Visit Procedure/Equipment (Routine) - Incomplete Specialty Diagnoses / Procedures Referred By Contact Refer red To Contact Diagnoses Rheumatoid arthritis, involving unspecified site, unspecified whether rheumatoid factor present (HRC) Arthralgia, unspecified joint Chronic pain syndrome Vikas Donohue MD Procedures XR Hands 1 View Bilat Arthritis [address] [place], [place] [address] Referral ID Status Reason Start Date Expiration Date Visits V isits Requested Authorized [id number] Incomplete 05/20/2020 08/19/2021 1 1 Encounter Details Date Type Department Care Team Description 05/20/2020 Ancillary Car[place] Vikas Donohue MD Rheumatoid arthritis, involving unspecif ied site, unspecified whether rheumatoid factor present (HRC); Procedure Radiology [address] [place] Arthralgia, unspecified join t; [address] [facility] [place] [id number] Social History Tobacco Use Types Packs/Day Years Used Date Smoking Tobacco: Every Day Sex Assigned at Date Recorded Not on file documented as of this encounter Progress Notes Vikas Donohue MD - 05/20/2020 11:45 AM CST X-ray of the hands shows chronic changes in the left wrist which can be from a previous inflammatoryprocess or trauma. No signs of joint erosions. S PRODUCT MANAGER documented in this encounter Plan of Treatment Not on filedocumented as of this encounter Procedures Procedure Name Priority Date/Time Associated Diagnosis Comme nts XR HANDS 1 VIEW Routine 05/20/2020 12:10 PM Rheumatoid Resul ts for this BILAT ARTHRITIS SALES PRODUCT MANAGER arthritis, involving proc edure are in unspecified site, the result s unspecified whether section. rheumatoid factor present (HRC) Arthralgia, unspecified join t Chronic pain syndrome documented in this encounter Results XR Hands 1 View Bilat Arthritis (05/20/2020 12:10 PM SALES PRODUCT MANAGER) Anatomical Region Laterality Modality Upper Extremity, Hand Digital Radiograph y Specimen (Source) Anatomical Collection Method Collection Time Re ceived Time Location / / Volume Laterality 05/20/2020 11:50 AM SALES PRODUCT MANAGER Impressions 05/20/2020 12:30 PM SALES PRODUCT MANAGER COMPARISON: ??None. FINDINGS: ??Bones are adequately mineral [...] third digit. Vikas Donohue MD RAD GD documented in this encounter Visit Diagnoses Diagnosis Rheumatoid arthritis, involving unspecif ied site, unspecified whether rheumatoid factor present (HRC) Arthralgia, unspecified joint Chronic pain syndrome documented in this encounter Care Teams Route Salesperson Relationship Specialty Start Date End Date Needs Pcp, Assignment PCP - General 05/20/20 [place] [address] documented as of this encounter
[2022-02-02 14:10] LABS: Chloride* 101 mmol/L (96-114); Sodium* 138 mmol/L (135-149)
[2022-02-02 14:11] LABS: Potassium* 4.6 mmol/L (3.6-5.1)
[2022-02-02 14:13] LABS: Alanine Aminotransferase* 34 U/L (4-35); Blood Urea Nitrogen* 8 mg/dL (5-24); Carbon Dioxide* 25 mmol/L (20-32); Cholesterol* 266 mg/dL (90-199); Creatinine* 0.7 mg/dL (0.5-1.5); Estimated Glomerular Filt Rate 112 ml/min; Glucose* 97 mg/dL (60-115)
[2022-02-02 14:14] LABS: Calcium* 9.5 mg/dL (8.4-10.6); HDL Cholesterol* 66 mg/dL (>=50); LDL Cholesterol Calculated 171 mg/dL (<100); Triglycerides* 144 mg/dL (40-149)
== END 2022-02-02 10:52 | disposition home or self-care (01) ==
PROVIDERS: PCP Family Medicine; Visit Provider Family Medicine
DX: E78.5 Hyperlipidemia, unspecified (principal); N91.2 Amenorrhea, unspecified
CPT/HCPCS: 80048; 80061; 84460

== ENCOUNTER 2022-07-17 11:07 | Outpatient (CLI) | payer BC, SELFPAY ==
--- OUTSIDE RECORDS SUMMARY | 2022-07-17 11:15 | XMS_ITS | Continuity of Care Document ---
Author Name Unknown Organization [facility] Address [address] [facility] [place] [address] Phone Care Team Providers Care Clothing Worker Name Role Phone Will MD [place], Audi Ruelas Unavailabl e Allergies, Adverse Reactions, Alerts Substance Reaction Status Criticality morphine Vomiting Active No Information latex BlisterRash Active No Information piroxicam Active No Information naproxen Active No Information Medications Medication Instructions Dosage Effective Dates (start - stop) Status Comments Detrol LA 4 mg capsule,extended release take 1 capsule by oral route every day 4 MG - Active Seroquel 25 mg tablet take 1 tablet by oral route every day as needed 25 MG - Active duloxetine 30 mg capsule,delayed release take 1 capsule by oral route every day 30 MG - Active duloxetine 60 mg capsule,delayed release take 1 capsule by oral route every day 60 MG - Active Seroquel 300 mg tablet take 1 tablet by oral route every day 300 MG - Active meloxicam 15 mg tablet take 1 tablet by oral route 2 times every day 15 MG - Active gabapentin 600 mg tablet take 2 tablet b y oral route 3 times every day 1200 MG - Active gemfibrozil 600 mg tablet take 1 tablet by oral route 2 times every day 30 minutes before morning and evening meal 600 MG - Active pantoprazole 40 mg tablet,delayed release take 1 tablet by oral route every day 40 MG - Active prochlorperazine maleate 10 mg tablet take 1 tablet by oral route 3 times every day 10 MG - Active naltrexone 50 mg tablet take 1 tablet by oral route every day 50 MG - Active spironolactone 50 mg tablet take 1 tablet by oral route every day 50 MG - Active prazosin 1 mg capsule take 2 capsule by oral route every day 2 MG - Active Mirena 20 mcg/24 hours (6 yrs) 52 mg intrauterine device - Active Procedures Procedure Date OFFICE/OUTPATIENT VISIT, [facility] OFFICE/OUTPATIENT VISIT, [facility] Advance Directives Directive Yes / No Effective Date File Name No Information Encounters Encounter Description Practice Location Reason(s) For Visit Diagnoses Date Provider Providers Copied on Encounter [facility], [address] [place] [address], [id number] , [place] tel: [phone] [facility] No Information 2 Corey Huntley. [address] [place], [place] [address], [place], [id number] , [place]. tel: [phone] OFFICE/OUTPA TIENT VISIT, [facility], [address] [place] [address] [place], [id number] , [place] tel: [phone] [facility] Back Pain (chief complaint) FibromyalgiaOther intervertebral disc displacement, lumbar regionBipolar disorder, unspecifiedAlcohol abuse, in remissionOther group home (current) drug therapy Sep- 1 Burdick Josh. [place], [address], [place], [address], [place]. tel:[phone] Referring Provider: Audi Dominguez, [address] [place], [place] [address], [address] . tel:[phone] [facility], [address] [place] [address], [id number] , [place] tel: [phone] [facility] No Information 1 Burdick Josh. [place], [address], [place], [address], [place]. tel:[phone] OFFICE/OUTPA TIENT VISIT, NEW [facility], [address] [place] [address], [id number] , [place] tel: [phone] [facility] Back Pain (chief complaint) FibromyalgiaOther intervertebral disc displacement, lumbar regionBipolar disorder, unspecifiedAlcohol abuse, in remissionOther group home (current) drug therapy Sep-0 9-202 1 Gennaro Moreno. [place], [address], [place], [address], [place]. tel:[phone] Referring Provider: Audi Dominguez, [address] [place], [address] . tel:[phone] Family History Family Member Type Diagnosis Age At Onset Mother Problem Bulging discs/back surgery Payers Payer name Insurance type Covered republican ID Authoriza tirebeca(s) [facility] [id number] Social History Type Description Quantity Date Captured Comments Sex Female Smoking Status No Information Chief Complaint And Reason For Visit No Information Reason For Referral Reason For Referral No Information Plan Of Treatment Date Type Action Status Goal Height. Due on d ue Goal Review Allergy List. Due on due Goal Tobacco Use. Due on 021 due Goal PHQ-9. Due on du e Goal Weight. Due on d ue Goal Medication Reconciliation. D ue on due Goal Update Social History. Due o n due Goal Height. Due on d ue Goal Review Allergy List. Due on due Goal Tobacco Use. Due on 021 due Goal PHQ-9. Due on du e Goal Weight. Due on d ue Goal Medication Reconciliation. D ue on due Goal Update Social History. Due o n due Goal Height. Due on d ue Goal Review Allergy List. Due on due Goal Tobacco Use. Due on 021 due Goal PHQ-9. Due on du e Goal Weight. Due on d ue Goal Medication Reconciliation. D ue on due Goal Update Social History. Due o n due History Of Present Illness Encounter Date Complaint History Of Prese nt Illness Back Pain (comments) Mrs. Flor dyer is a pleasant 40 y/o female who presents for follow up after initial consult regarding chronic widespread pain in the setting of a complex psychiatric hx that includes bipolar, depression, BPD, and PTSD with multiple suicide attempts. She also has a hx of EtOH abuse, but has been sober since most recent inpatient treatment 6 months ago. She states that her pain is worse since last OV as she increases her activity at PT. She details that she goes to PT 2x/week. She continues to experience low back pain radiating down the posterior left thigh to the foot. She continues to endorse some possible incontinence symptoms, but MRI recently completed does not show any evidence of cauda equina syndrome. 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 She is interested in pursuing any treatment option that can help ease some of the painShe states she previously consulted with rheumatology but did not have a good experience. She reports she has previously been advised to complete the pain rehab program at [facility] by another provider.She details she continues to be managed on Duloxetine and continues to wean off Gabapentin d/t fatigue. Continues to take meloxicam despite her hx of ulcers. She also inquires about any medication suggestions to help with sleeping at night.No other concerns today. Back Pain Severity level i s 9. The problem is stable. It occurs persistently. The patient describes the pain as an ache, burning, sharp and tingling. Symptoms are aggravated by ascending stairs, bending, changing positions, daily activities, descending stairs, jumping, lifting, lying/rest, pushing, running, sitting, standing, twisting, walking and movement.The patient denies relieving factors. Back Pain Severity level i s 9. Duration: chronic. The problem is worsening. It occurs persistently. Location of pain is lower back and legs.The patient describes the pain as an ache, sharp, throbbing and tingling. Symptoms are aggravated by bending, daily activities, lifting, running, standing, twisting and walking.The patient denies relieving factors. Back Pain (comments) Mrs. Flor dyer is a pleasant 40 y/o female who presents for chronic widespread pain in the setting of a complex psychiatric hx that includes bipolar, depression, BPD, and PTSD with multiple suicide attempts. She also has a hx of EtOH abuse, but has been sober since most recent inpatient treatment 6 months ago. 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 She no longer follows w/rheumatology. Also has a hx of gastric ulcers e/b alcohol and NSAID use. Over the years, the pain spread to include joints throughout the body. She is s/p many steroid injections in the knees, hips, and ankles w/variable benefit. More recently, she began to have low back pain radiating down the posterior thigh to the left foot. Describes some possible incontinence symptoms, although she reportedly had an MRI in July that was reassuring (report not available). She starts PT this week. 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 Certified for cannabis, but too expensive.She was honest about her alcohol issues. Started drinking to self medicate for pain. S/p 3 inpatient hospitalizations, most recently in July. Currently on duloxetine. Weaning gabapentin d/t fatigue. Taking meloxicam despite her hx of ulcers. Functional Status Date Functional Assessmen t No Information Instructions Date Instruction Additional Infor mation No Information Assessments Type Assessment Date No Information Patient Care Teams Name Effective Dates (start - stop) Status Members No Information
== END 2022-07-17 11:08 | disposition home or self-care (01) ==
PROVIDERS: PCP Family Medicine; Visit Provider Family Medicine
DX: L65.0 Telogen effluvium (principal); E78.5 Hyperlipidemia, unspecified; L70.0 Acne vulgaris
CPT/HCPCS: 80048; 84443; 85025

== ENCOUNTER 2022-09-25 11:23 | Outpatient (CLI) | payer BC, SELFPAY ==
--- OUTSIDE RECORDS SUMMARY | 2022-09-25 11:28 | XMS_ITS | Continuity of Care Document ---
Author Name Unknown Organization [facility] Address [address] [place] [address] Phone Care Team Providers Care Obgyn Nurse Name Role Phone David Herrera MD Unavailable Unavailable Advance Directives Directive Yes / No Effective Date File Name No Information Encounters Encounter Description Practice Location Reason(s) For Visit Diagnoses Date Provider Providers Copied on Encounter [facility], [address], [place], [address], [place] tel:[phone] [facility], No Information Mar-2 0-201 3 Javier Hernandez. [facility] [address], [place], [address], [place]. tel:[phone] Family History Family Member Type Diagnosis Age At Onset No Information Payers Payer name Insurance type Covered democrat ID Authoriza tion(s) No Information Social History Type Description Quantity Date Captured Comments Sex Female Smoking Status No Information Chief Complaint And Reason For Visit No Information Reason For Referral Reason For Referral No Information Plan Of Treatment Date Type Action Status No Information History Of Present Illness Encounter Date Complaint History Of Prese nt Illness No Information Functional Status Date Functional Assessmen t No Information Instructions Date Instruction Additional Infor mation No Information Assessments Type Assessment Date No Information Patient Care Teams Name Effective Dates (start - stop) Status Members No Information
--- OUTSIDE RECORDS SUMMARY | 2022-09-25 11:28 | XMS_ITS | Continuity of Care Document ---
Author Name Unknown Organization [facility] Address [address] [facility] [place] [address] Phone Care Team Providers Care Finish Specialist Name Role Phone Will MD [place], Audi [...] - Active Procedures Procedure Date OFFICE/OUTPATIENT VISIT, [facility] OFFICE/OUTPATIENT VISIT, [facility] Advance Directives Directive Yes / No Effective Date File Name No Information Encounters Encounter Description Practice Location Reason(s) For Visit Diagnoses Date Provider Providers Copied on Encounter [facility], [address] [place] [address], [id number] , [place] tel: [phone] [facility] No Information 2 Corey Huntley. [address] [place], [place] [address], [place], [id number] , [place]. tel: [phone] OFFICE/OUTPA TIENT VISIT, [facility], [address] [place] [address] [place], [id number] , [place] tel: [phone] [facility] Back Pain (chief complaint) FibromyalgiaOther intervertebral disc displacement, lumbar regionBipolar disorder, unspecifiedAlcohol abuse, in remissionOther manager terminal (current) drug therapy Sep- 1 Burdick Josh. [facility], [address], [place], [address], [place]. tel:[phone] Referring Provider: Audi Dominguez, [address] [place], [place] [address], [place], [address] . tel:[phone] [facility], [address] [place] [address], [id number] , [place] tel: [phone] [facility] No Information 1 Burdick Josh. [facility], [address], [place], [address], [place]. tel:[phone] OFFICE/OUTPA TIENT VISIT, NEW [facility], [address] [place] [address], [id number] , [place] tel: [phone] [facility] Back Pain (chief complaint) FibromyalgiaOther intervertebral disc displacement, lumbar regionBipolar disorder, unspecifiedAlcohol abuse, in remissionOther manager terminal (current) drug therapy Sep-0 9-202 1 Gennaro Moreno. [facility], [address], [place], [address], [place]. tel:[phone] Referring Provider: Audi Dominguez, [address] [place], [address] . tel:[phone] Family History Family Member Type Diagnosis Age At Onset Mother Problem Bulging discs/back surgery Payers Payer name Insurance type Covered alliance party ID Authoriza tirebeca(s) [facility] [id number] Social History Type Description Quantity Date Captured [...] of cauda equina syndrome. Continues to utilize medicare compliance auditor. She is interested in pursuing any treatment option that can help ease some of the painShe states she previously consulted with rheumatology but did not have a good experience. She reports she has previously been advised to complete the pain rehab program at [facility] by another provider.She details she continues to [...] She starts PT this week. 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 Certified for cannabis, but too [...]
--- OUTSIDE RECORDS SUMMARY | 2022-09-25 11:28 | XMS_ITS | Continuity of Care Document ---
Author Name Unknown Organization [facility] Address [address] [place] [address] Phone Care Team Providers Care Stoner Out Name Role Phone Brodie Saldaña Unavailable Unavailable Allergies, Adverse Reactions, Alerts Substance Reaction Status Criticality NAPROXEN SODIUM Active No Informati on naproxen Active No Information morphine Active No Information eszopiclone Active No Information latex Active No Information piroxicam Active No Information Medications Medication Instructions Dosage Effective Dates (start - stop) Status Comments NALTREXONE HCL (unknown strength) Not Available - Active TYLENOL (unknown strength) Not Available - Active VITAMIN D3 (unknown strength) Not Available - Active CATAPRES (unknown strength) Not Available - Active LOMOTIL (unknown strength) Not Available - Active DEPAKOTE ER (unknown strength) Not Available - Active NEURONTIN (unknown strength) Not Available - Active LOPID (unknown strength) Not Available - Active LEVBID (unknown strength) Not Available - Active MIRENA (unknown strength) Not Available - Active METROGEL-VAGINAL (unknown strength) Not Available - Active MINOCIN (unknown strength) Not Available - Active ZOFRAN (unknown strength) Not Available - Active PROTONIX (unknown strength) Not Available - Active PRAZOSIN HCL (unknown strength) Not Available - Active SEROQUEL (unknown strength) Not Available - Active RISPERDAL (unknown strength) Not Available - Active ALDACTONE (unknown strength) Not Available - Active Procedures Procedure Date Office/Outpatient Visit,[facility], [facility] Advance Directives Directive Yes / No Effective Date File Name No Information Encounters Encounter Description Practice Location Reason(s) For Visit Diagnoses Date Provider Providers Copied on Encounter [facility], [address], [place], [place], [id number], [place] tel:[phone] [facility] [place] No Information Devante Calloway. [facility], [address], [place], [id number], [place]. tel:[phone] Office/Outpat ient Visit,New, [facility], [address], [place], [id number], [place] tel:[phone] [facility] Low back pain Devante Brodie. [facility], [address], [place], [id number], [place]. tel:[phone] Referring Provider: Konstantin Terrell, [address], [address]. tel:[phone] Family History Family Member Type Diagnosis Age At Onset No Information Payers Payer name Insurance type Covered libertarian ID Viet ortega(s) [facility] [id number] [facility] [id number] Social History Type Description Quantity Date Captured [...]
== END 2022-09-25 11:24 | disposition home or self-care (01) ==
PROVIDERS: PCP Family Medicine; Visit Provider Family Medicine
DX: E78.5 Hyperlipidemia, unspecified (principal); R53.83 Other fatigue
CPT/HCPCS: 80048; 85025

== ENCOUNTER 2022-12-05 16:12 | Outpatient (CLI) | payer BC, SELFPAY ==
--- OUTSIDE RECORDS SUMMARY | 2022-12-05 16:17 | XMS_ITS | Continuity of Care Document ---
Author Name Unknown Organization [facility] Address [address] [place] [address] Phone Care Team Providers Care Export Sales Assistant Name Role Phone David Herrera MD Unavailable Unavailable Advance Directives Directive Yes / No Effective Date File Name No Information Encounters Encounter Description Practice Location Reason(s) For Visit Diagnoses Date Provider Providers Copied on Encounter [facility], [address], [place], [address], [place] tel:[phone] [facility], No Information Mar-2 0-201 3 Javier Hernandez. [facility] [address], [place], [address], [place]. tel:[phone] Family History Family Member Type Diagnosis Age At Onset No Information Payers Payer name Insurance type Covered constitution party ID Authoriza tion(s) No Information Social History Type Description Quantity Date Captured Comments Sex Female Smoking Status No Information Chief Complaint And Reason For Visit No Information Reason For Referral Reason For Referral No Information History Of Present Illness Encounter Date Complaint History Of Prese nt Illness No Information Functional Status Date Functional Assessmen t No Information Instructions Date Instruction Additional Infor mation No Information Assessments Type Assessment Date No Information Patient Care Teams Name Effective Dates (start - stop) Status Members No Information
--- OUTSIDE RECORDS SUMMARY | 2022-12-05 16:17 | XMS_ITS | Continuity of Care Document ---
Author Name Unknown Organization [facility] Address [address] [facility] [place] [address] Phone Care Team Providers Care Sausage Machine Operator Name Role Phone Will MD [place], Audi [...] - Active Procedures Procedure Date OFFICE/OUTPATIENT VISIT, [facility] OFFICE/OUTPATIENT VISIT, [facility] Advance Directives Directive Yes / No Effective Date File Name No Information Encounters Encounter Description Practice Location Reason(s) For Visit Diagnoses Date Provider Providers Copied on Encounter [facility], [address] [place] [address], [id number] , [place] tel: [phone] [facility] No Information 2 Corey Huntley. [address] [place], [place] [address], [place], [id number] , [place]. tel: [phone] OFFICE/OUTPA TIENT VISIT, [facility], [address] [place] [address] [place], [place], [id number] , [place] tel: [phone] [facility] Back Pain (chief complaint) FibromyalgiaOther intervertebral disc displacement, lumbar regionBipolar disorder, unspecifiedAlcohol abuse, in remissionOther correction (current) drug therapy Sep- 1 Burdick Josh. [facility], [address], [place], [address], [place]. tel:[phone] Referring Provider: Audi Dominguez, [address] [place], [place] [address], [place], [address] . tel:[phone] [facility], [address] [place] [address], [id number] , [place] tel: [phone] [facility] No Information 1 Burdick Josh. [place], [address], [place], [address], [place]. tel:[phone] OFFICE/OUTPA TIENT VISIT, NEW [facility], [address] [place] [address], [id number] , [place] tel: [phone] [facility] Back Pain (chief complaint) FibromyalgiaOther intervertebral disc displacement, lumbar regionBipolar disorder, unspecifiedAlcohol abuse, in remissionOther correction (current) drug therapy Sep-0 9-202 1 Gennaro Moreno. [facility], [address], [place], [address], [place]. tel:[phone] Referring Provider: Audi Dominguez, [address] [place], [address] . tel:[phone] Family History Family Member Type Diagnosis Age At Onset Mother Problem Bulging discs/back surgery Payers Payer name Insurance type Covered alliance party ID Authoriza tirebeca(s) [facility] [id number] Social History Type Description Quantity Date Captured [...] of cauda equina syndrome. Continues to utilize adult caregiver. She is interested in pursuing any treatment option that can help ease some of the painShe states she previously consulted with rheumatology but did not have a good experience. She reports she has previously been advised to complete the pain rehab program at [facility] by another provider.She details she [...] She starts PT this week. 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 Certified for cannabis, but too [...]
--- OUTSIDE RECORDS SUMMARY | 2022-12-05 16:17 | XMS_ITS | Continuity of Care Document ---
Author Name Unknown Organization [facility] Address [address] [place] [address] Phone Care Team Providers Care Organ Installer Name Role Phone Brodie Saldaña Unavailable Unavailable [...] Available - Active Procedures Procedure Date Office/Outpatient Visit,[facility], [facility] 2020 Advance Directives Directive Yes / No Effective Date File Name No Information Encounters Encounter Description Practice Location Reason(s) For Visit Diagnoses Date Provider Providers Copied on Encounter [facility], [address], [place], [id number], [place] tel:[phone] [facility] [place] No Information Devante Brodie. [facility], [address], [place], [id number], [place]. tel:[phone] Office/Outpat ient Visit,New, [facility], [address], [place], [id number], [place] tel:[phone] [facility] Low back pain Devante Brodie. [facility], [address], [place], [id number], [place]. tel:[phone] Referring Provider: Konstantin Terrell, [address], [address]. tel:[phone] Family History Family Member Type Diagnosis Age At Onset No Information Payers Payer name Insurance type Covered libertarian ID Viet ortega(s) [facility] [id number] [facility] [id number] Social History Type Description Quantity Date Captured [...]
[2022-12-05 18:47] LABS: Chlamydia DNA Amplified* NOT DETECTED (No Detected); GC DNA Amplified* NOT DETECTED (No Detected)
== END 2022-12-05 16:13 | disposition home or self-care (01) ==
PROVIDERS: PCP Family Medicine; Visit Provider Registered Nurse
DX: Z11.3 Encounter for screening for infections with a predominantly sexual mode of transmission (principal)
CPT/HCPCS: 86592; 86703; 86803; 87340; 87491; 87591

== ENCOUNTER 2022-12-15 14:40 | Outpatient (CLI) | payer BC, SELFPAY ==
--- OUTSIDE RECORDS SUMMARY | 2022-12-15 14:44 | XMS_ITS | Continuity of Care Document ---
Author Name Unknown Organization [facility] Address [address] [facility] [place] [address] Phone Care Team Providers Care Senior Management Consultant Name Role Phone Will MD [place], Audi [...] - Active Procedures Procedure Date OFFICE/OUTPATIENT VISIT, [facility] OFFICE/OUTPATIENT VISIT, [facility] Advance Directives Directive Yes / No Effective Date File Name No Information Encounters Encounter Description Practice Location Reason(s) For Visit Diagnoses Date Provider Providers Copied on Encounter [facility], [address] [place] [address], [id number] , [place] tel: [phone] [facility] No Information 2 Corey Huntley. [address] [place], [place] [address]N[place], [place], [id number] , [place]. tel: [phone] OFFICE/OUTPA TIENT VISIT, [facility], [address] [place] [address] [place], [id number] , [place] tel: [phone] [facility] Back Pain (chief complaint) FibromyalgiaOther intervertebral disc displacement, lumbar regionBipolar disorder, unspecifiedAlcohol abuse, in remissionOther fpc (current) drug therapy Sep- 1 Burdick Josh. [facility], [address], [place], [address], [place]. tel:[phone] Referring Provider: Audi Dominguez, [address] [place], [place] [address], [place], [address] . tel:[phone] [facility], [address] [place] [address], [id number] , [place] tel: [phone] [facility] No Information 1 Burdick Josh. [facility], [address], [place], [address], [place]. tel:[phone] OFFICE/OUTPA TIENT VISIT, NEW [facility], [address] [place] [address], [id number] , [place] tel: [phone] [facility] Back Pain (chief complaint) FibromyalgiaOther intervertebral disc displacement, lumbar regionBipolar disorder, unspecifiedAlcohol abuse, in remissionOther office chair assembler (current) drug therapy Sep-0 9-202 1 Gennaro Moreno. [facility], [address], [place], [address], [place]. tel:[phone] Referring Provider: Audi Dominguez, [address] [place], [address] . tel:[phone] Family History Family Member Type Diagnosis Age At Onset Mother Problem Bulging discs/back surgery Payers Payer name Insurance type Covered constitution party ID Authoriza tirebeca(s) [facility] [id number] Social History Type Description Quantity Date Captured [...] to complete the pain rehab program at [facility] by another provider.She details she continues [...] She starts PT this week. 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 Certified for cannabis, but too [...]
--- OUTSIDE RECORDS SUMMARY | 2022-12-15 14:45 | XMS_ITS | Continuity of Care Document ---
Author Name Unknown Organization [facility] Address [address] [place] [address] Phone Care Team Providers Care Award Machine Operator Name Role Phone David Herrera MD Unavailable Unavailable Advance Directives Directive Yes / No Effective Date File Name No Information Encounters Encounter Description Practice Location Reason(s) For Visit Diagnoses Date Provider Providers Copied on Encounter [facility], [address], [place], [address], [place] tel:[phone] [facility], No Information Mar-2 0-201 3 Javier Hernandez. [facility] [address], [place], [address], [place]. tel:[phone] Family History Family Member Type Diagnosis Age At Onset No Information Payers Payer name Insurance type Covered republican ID Authoriza tion(s) No Information Social History [...]
--- OUTSIDE RECORDS SUMMARY | 2022-12-15 14:45 | XMS_ITS | Continuity of Care Document ---
Author Name Unknown Organization [facility] Address [address] [place] [address] Phone Care Team Providers Care Electrical And Radio Aircraft Mechanic Name Role Phone Brodie Saldaña Unavailable Unavailable Allergies, Adverse Reactions, Alerts Substance Reaction Status Criticality NAPROXEN SODIUM Active No Informati on naproxen Active No Information morphine Active No Information eszopiclone Active No Information latex Active No Information piroxicam Active No Information Medications Medication Instructions Dosage Effective Dates (start - stop) Status Comments ALDACTONE (unknown strength) Not Available - Active RISPERDAL (unknown strength) Not Available - Active SEROQUEL (unknown strength) Not Available - Active PRAZOSIN HCL (unknown strength) Not Available - Active PROTONIX (unknown strength) Not Available - Active ZOFRAN (unknown strength) Not Available - Active MINOCIN (unknown strength) Not Available - Active METROGEL-VAGINAL (unknown strength) Not Available - Active MIRENA (unknown strength) Not Available - Active LEVBID (unknown strength) Not Available - Active LOPID (unknown strength) Not Available - Active NEURONTIN (unknown strength) Not Available - Active DEPAKOTE ER (unknown strength) Not Available - Active LOMOTIL (unknown strength) Not Available - Active CATAPRES (unknown strength) Not Available - Active VITAMIN D3 (unknown strength) Not Available - Active TYLENOL (unknown strength) Not Available - Active NALTREXONE HCL (unknown strength) Not Available - Active Procedures Procedure Date Office/Outpatient Visit,[facility], [facility] 2020 Advance Directives Directive Yes / No Effective Date File Name No Information Encounters Encounter Description Practice Location Reason(s) For Visit Diagnoses Date Provider Providers Copied on Encounter [facility], [address], [place], [id number], [place] tel:[phone] [facility] [place] No Information Devante Brodie. [facility] [place], [address], [place], [id number], [place]. tel:[phone] Office/Outpat ient Visit,New, [facility], [address], [place], [id number], [place] tel:[phone] [facility] Low back pain Devante Brodie. [facility] [place], [address], [place], [id number], [place]. tel:[phone] Referring Provider: Konstantin Terrell, [address], [address]. tel:[phone] Family History Family Member Type Diagnosis Age At Onset No Information Payers Payer name Insurance type Covered green party ID Viet ortega(s) [facility] [id number] [facility] [id number] Social History Type Description Quantity Date Captured [...]
== END 2022-12-15 14:41 | disposition home or self-care (01) ==
LOC: NFLDREF 14:42
PROVIDERS: PCP Family Medicine; Visit Provider Registered Nurse
DX: R10.2 Pelvic and perineal pain (principal); N92.0 Excessive and frequent menstruation with regular cycle; Z72.51 High risk heterosexual behavior
CPT/HCPCS: 86803; 87086; 87340

== ENCOUNTER 2022-12-22 14:46 | Outpatient (CLI) | payer BC, SELFPAY ==
--- OUTSIDE RECORDS SUMMARY | 2022-12-22 14:49 | XMS_ITS | Continuity of Care Document ---
Author Name Unknown Organization [facility] Address [address] [facility] [place] [address] Phone Care Team Providers Care Supervisor Furnace Process Name Role Phone Will MD [place], Audi [...] - Active Procedures Procedure Date OFFICE/OUTPATIENT VISIT, [facility] OFFICE/OUTPATIENT VISIT, [facility] Advance Directives Directive Yes / No Effective Date File Name No Information Encounters Encounter Description Practice Location Reason(s) For Visit Diagnoses Date Provider Providers Copied on Encounter [facility], [address] [place] [address], [id number] , [place] tel: [phone] [facility] No Information 2 Corey Huntley. [address] [place], [place] [address], [place], [id number] , [place]. tel: [phone] OFFICE/OUTPA TIENT VISIT, [facility], [address] [place] [address] [place], [id number] , [place] tel: [phone] [facility] Back Pain (chief complaint) FibromyalgiaOther intervertebral disc displacement, lumbar regionBipolar disorder, unspecifiedAlcohol abuse, in remissionOther snf (current) drug therapy Sep- 1 Burdick Josh. [employer], [address], [place], [address], [place]. tel:[phone] Referring Provider: Audi Dominguez, [address] [place], [place] [address], [place], [address] . tel:[phone] [facility], [address] [place] [address], [id number] , [place] tel: [phone] [facility] No Information 1 Burdick Josh. [employer], [address], [place], [address], [place]. tel:[phone] OFFICE/OUTPA TIENT VISIT, NEW [facility], [address] [place] [address], [id number] , [place] tel: [phone] [facility] Back Pain (chief complaint) FibromyalgiaOther intervertebral disc displacement, lumbar regionBipolar disorder, unspecifiedAlcohol abuse, in remissionOther display specialist (current) drug therapy Sep-0 9-202 1 Gennaro Moreno. [employer], [address], [place], [address], [place]. tel:[phone] Referring Provider: Audi Dominguez, [address] [place], [address] . tel:[phone] Family History Family Member Type Diagnosis Age At Onset Mother Problem Bulging discs/back surgery Payers Payer name Insurance type Covered libertarian ID Authoriza tirebeca(s) [facility] [id number] Social History Type Description Quantity Date Captured Comments Sex Female Smoking Status No Information Chief Complaint And Reason For Visit No Information Reason For Referral Reason For Referral No Information Plan Of Treatment Date Type Action Status Goal Height. Due on d ue Goal Review Allergy List. Due on due Goal Tobacco Use. Due on due Goal PHQ-9. Due on du e Goal Weight. Due on d ue Goal Medication Reconciliation. D ue on due Goal Update Social History. Due o n due Goal Update Social History. Due o n due Goal Medication Reconciliation. D ue on due Goal Weight. Due on d ue Goal PHQ-9. Due on du e Goal Tobacco Use. Due on due Goal Review Allergy List. Due on due Goal Height. Due on d ue Goal Update Social History. Due o n due Goal Medication Reconciliation. D ue on due Goal Weight. Due on d ue Goal PHQ-9. Due on du e Goal Tobacco Use. Due on 021 due Goal Review Allergy List. Due on due Goal Height. Due on d ue History Of Present Illness Encounter Date Complaint [...] of cauda equina syndrome. 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 She is interested in pursuing any treatment option that can help ease some of the painShe states she previously consulted with rheumatology but did not have a good experience. She reports she has previously been advised to complete the pain rehab program at [facility] by another provider.She details she continues [...] She starts PT this week. 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 Certified for cannabis, but too [...]
--- OUTSIDE RECORDS SUMMARY | 2022-12-22 14:49 | XMS_ITS | Continuity of Care Document ---
Author Name Unknown Organization [facility] Address [address] [place] [address] Phone Care Team Providers Care Senior Quality Engineer Name Role Phone David Herrera MD Unavailable Unavailable Advance Directives Directive Yes / No Effective Date File Name No Information Encounters Encounter Description Practice Location Reason(s) For Visit Diagnoses Date Provider Providers Copied on Encounter [facility], [address], [place], [address], [place] tel:[phone] [facility], No Information Mar-2 0-201 3 Javier Hernandez. [facility] [address], [place], [address], [place]. tel:[phone] Family History Family Member Type Diagnosis Age At Onset No Information Payers Payer name Insurance type Covered libertarian ID Authoriza tion(s) No Information Social History [...]
--- OUTSIDE RECORDS SUMMARY | 2022-12-22 14:49 | XMS_ITS | Continuity of Care Document ---
Author Name Unknown Organization [facility] Address [address] [place] [address] Phone Care Team Providers Care Head Of Cytogenetics Name Role Phone Brodie Saldaña Unavailable Unavailable [...] Available - Active Procedures Procedure Date Office/Outpatient Visit,[facility], [facility] 2020 Advance Directives Directive Yes / No Effective Date File Name No Information Encounters Encounter Description Practice Location Reason(s) For Visit Diagnoses Date Provider Providers Copied on Encounter [facility], [address], [place], [id number], [place] tel:[phone] [facility] [place] No Information Devante Brodie. [facility] [place], [address], [place], [id number], [place]. tel:[phone] Office/Outpat ient Visit,New, [facility], [address], [place], [id number], [place] tel:[phone] [facility] Low back pain Devante Brodie. [facility] [place], [address], [place], [id number], [place]. tel:[phone] Referring Provider: Konstantin Terrell, [address], [address]. tel:[phone] Family History Family Member Type Diagnosis Age At Onset No Information Payers Payer name Insurance type Covered green party ID Viet ortega(s) [facility] [id number] [facility] [id number] Social History Type Description Quantity Date Captured [...]
--- NOTE | 2022-12-22 15:00 | CRLHL7_ITS ---
For Patients: As a result of the Century Cures Act, medical imaging exams and procedure reports are released immediately into your electronic medical record. You may view this report before your referring provider. If you have questions, please contact your health care provider. INDICATION: Excessive and frequent menstruation COMPARISON: none TECHNIQUE: 2D rodriguez scale and color Doppler images were acquired of the pelvis using a transabdominal and transvaginal approach. FINDINGS: Sonographic images demonstrate a normal size and smooth outer contour of the uterus. Uterus measures 8.9 cm in length by 4.4 cm in AP diameter by 4.9 cm in transverse dimension. The myometrium has a mildly heterogeneous echotexture. The endometrial lining measures 7 mm in composite thickness. The right ovary measures 3.4 x 1.6 x 1.8 cm in size and the left ovary measures 4.6 x 2.8 x 2.6 cm. The ovaries demonstrate normal arterial and venous blood flow on color Doppler analysis. Trace pelvic free fluid. IMPRESSION: Mild pelvic free fluid, considered physiologic. Endometrial thickness 7 millimeters. No defined uterine fibroid. Dictated by Willy Betancur MD @ 12/25/2022 8:59:13 AM (Electronically Signed)
== END 2022-12-22 14:47 | disposition home or self-care (01) ==
LOC: US 14:47
PROVIDERS: PCP Family Medicine; Visit Provider Registered Nurse
DX: N92.0 Excessive and frequent menstruation with regular cycle (principal)
CPT/HCPCS: 76830; 76856

== ENCOUNTER 2023-02-08 12:23 | Outpatient (CLI) | payer BC, SELFPAY ==
--- OUTSIDE RECORDS SUMMARY | 2023-02-08 12:26 | XMS_ITS | Continuity of Care Document ---
Author Name Unknown Organization [facility] Address [address] [facility] [place] [address] Phone Care Team Providers Care Bb Shot Packer Name Role Phone Will MD [place], Audi [...] - Active Procedures Procedure Date OFFICE/OUTPATIENT VISIT, [facility] OFFICE/OUTPATIENT VISIT, [facility] Advance Directives Directive Yes / No Effective Date File Name No Information Encounters Encounter Description Practice Location Reason(s) For Visit Diagnoses Date Provider Providers Copied on Encounter [facility], [address] [place] [id number] , [place] tel: [phone] [facility] No Information 2 Corey Huntley. [address] [place], [place] [address], [place], [id number] , [place]. tel: [phone] OFFICE/OUTPA TIENT VISIT, [facility], [address] [place] [address] [place], [id number] , [place] tel: [phone] [facility] Back Pain (chief complaint) FibromyalgiaOther intervertebral disc displacement, lumbar regionBipolar disorder, unspecifiedAlcohol abuse, in remissionOther truck terminal manager (current) drug therapy Sep- 1 Burdick Josh. [employer], [address], [place], [address], [place]. tel:[phone] Referring Provider: Audi Dominguez, [address] [place], [place] [address], [place], [address] . tel:[phone] [facility], [address] [place] [address], [id number] , [place] tel: [phone] [facility] No Information 1 Burdick Josh. [employer], [address], [place], [address], [place]. tel:[phone] OFFICE/OUTPA TIENT VISIT, NEW [facility], [address] [place] [address], [id number] , [place] tel: [phone] [facility] Back Pain (chief complaint) FibromyalgiaOther intervertebral disc displacement, lumbar regionBipolar disorder, unspecifiedAlcohol abuse, in remissionOther truck terminal manager (current) drug therapy Sep-0 9-202 1 Gennaro Moreno. [employer], [address], [place], [address], [place]. tel:[phone] Referring Provider: Audi Dominguez, [address] [place], [address] . tel:[phone] Family History Family Member Type Diagnosis Age At Onset Mother Problem Bulging discs/back surgery Payers Payer name Insurance type Covered alliance party ID Authoriza tirebeca(s) [facility] [id number] Social History Type Description Quantity Date Captured [...] of cauda equina syndrome. Continues to utilize care provider. She is interested in pursuing any treatment option that can help ease some of the painShe states she previously consulted with rheumatology but did not have a good experience. She reports she has previously been advised to complete the pain rehab program at [facility] by another provider.She details she continues to [...] She starts PT this week. 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 Certified for cannabis, but too [...]
--- OUTSIDE RECORDS SUMMARY | 2023-02-08 12:26 | XMS_ITS | Continuity of Care Document ---
Author Name Unknown Organization [facility] Address [address] [place] [address] Phone Care Team Providers Care Upholstery Auto Trimmer Name Role Phone Brodie Saldaña Unavailable Unavailable [...] Available - Active Procedures Procedure Date Office/Outpatient Visit,[facility], [facility] [place] Advance Directives Directive Yes / No Effective Date File Name No Information Encounters Encounter Description Practice Location Reason(s) For Visit Diagnoses Date Provider Providers Copied on Encounter [facility], [address], [place], [id number], [place] tel:[phone] [facility] [place] No Information Devante Brodie. [facility] [place], [address], [place], [id number], [place]. tel:[phone] Office/Outpat ient Visit,[place], [facility], [address], [place], [id number], [place] tel:[phone] [facility] Low back pain Devante Brodie. [facility] [place], [address], [place], [id number], [place]. tel:[phone] Referring Provider: Konstantin Terrell, [address], [address]. tel:[phone] Family History Family Member Type Diagnosis Age At Onset No Information Payers Payer name Insurance type Covered alliance party ID Viet ortega(s) [facility] [id number] [facility] [id number] Social History Type Description Quantity Date Captured [...]
== END 2023-02-08 12:24 | disposition home or self-care (01) ==
LOC: FBOREF 12:23
PROVIDERS: PCP Family Medicine; Visit Provider Family Medicine
DX: E78.5 Hyperlipidemia, unspecified (principal); L73.2 Hidradenitis suppurativa
CPT/HCPCS: 80061

== ENCOUNTER 2023-02-28 14:34 | Outpatient (CLI) | payer BC, SELFPAY ==
--- OUTSIDE RECORDS SUMMARY | 2023-02-28 14:38 | XMS_ITS | Continuity of Care Document ---
Author Name Unknown Organization [facility] Address [address] [place] [address] Phone Care Team Providers Care Engineering Coordinator Name Role Phone Brodie Saldaña Unavailable Unavailable [...] Available - Active Procedures Procedure Date Office/Outpatient Visit,[facility], [facility] [place] Advance Directives Directive Yes / No Effective Date File Name No Information Encounters Encounter Description Practice Location Reason(s) For Visit Diagnoses Date Provider Providers Copied on Encounter [facility], [address], [place], [id number], [place] tel:[phone] [facility] [place] No Information Devante Brodie. [facility] [place], [address], [place], [id number], [place]. tel:[phone] Office/Outpat ient Visit,[place], [facility], [address], [place], [id number], [place] tel:[phone] [facility] Low back pain Devante Brodie. [facility] [place], [address], [place], [id number], [place]. tel:[phone] Referring Provider: Konstantin Terrell, [address], [address]. tel:[phone] Family History Family Member Type Diagnosis Age At Onset No Information Payers Payer name Insurance type Covered green party ID Viet ortega(s) [facility] [address] [facility] [id number] Social History Type Description Quantity Date Captured [...]
--- OUTSIDE RECORDS SUMMARY | 2023-02-28 14:38 | XMS_ITS | Continuity of Care Document ---
Author Name Unknown Organization [facility] Address [address] [place] [address] Phone Care Team Providers Care Soap Maker Name Role Phone David Herrera MD Unavailable Unavailable Advance Directives Directive Yes / No Effective Date File Name No Information Encounters Encounter Description Practice Location Reason(s) For Visit Diagnoses Date Provider Providers Copied on Encounter [facility], [address], [place], [address], [place] tel:[phone] [facility], No Information Mar-2 0-201 3 Javier Hernandez. [facility] [address], [place], [address], [place]. tel:[phone] Family History Family Member Type Diagnosis Age At Onset No Information Payers Payer name Insurance type Covered alliance party ID Authoriza tion(s) No Information Social [...]
[2023-03-04 05:18] LABS: HSV 1 Subtype by PCR Not Detected; HSV 2 Subtype by PCR Not Detected; Herpes Simplex Subtype Source Not Provided
== END 2023-02-28 14:35 | disposition home or self-care (01) ==
LOC: NFLDREF 14:35
PROVIDERS: PCP Family Medicine; Visit Provider Registered Nurse
DX: Z11.3 Encounter for screening for infections with a predominantly sexual mode of transmission (principal)
CPT/HCPCS: 87529

== ENCOUNTER 2023-03-19 12:18 | Emergency (ER) | payer BC, SELFPAY ==
[2023-03-19 12:23] VITALS: BP 130/71; PULSE 95; RESP 18; O2SAT 98; BMI 26.6
--- NOTE | 2023-03-19 12:46 | ED.GENADULT ---
HPI - General Adult General Chief complaint: Dizziness/Vertigo Stated complaint: Dizziness, lethargy Time Seen by Provider: 03/19/23 12:22 History of Present Illness HPI narrative: Passed out in [facility] on Sunday. Has stabbing pain in the back of head. Has cramping in her lower abdomen and pain in her lower back all over. Got the Mirena IUD a few months ago and has been passing tissue the past few days. 43-year-old woman presenting to the emergency department upon recommendation of primary care clinic following some episodes of blacking out. She says that has been happening frequently lately. Most recently yesterday? while in line sitting in her car in line for [facility]. Sounds like she stays pretty well hydrated being a ?tea drinker?. Not having chest pain. No palpitations/irregular heartbeats. No fever. No cough cold symptoms. Few months ago had an IUD placed for prevention. Since that time has had intense low back cramping. Not associated necessarily with movement. No injury. She has also been bleeding heavily. She describes the bleeding having stopped recently until this morning where she noticed large clots and tissue. She is not feeling dizzy but will feel lightheaded with orthostatic changes. Not particularly short of breath but notes history of asthma. Has had trouble sleeping for the pain. 800 mg of ibuprofen tried Asking again about nature of these syncopal events, it appears that about a week ago had an orthostatic event where blacked out briefly. No injury apparently sustained. The 1 seated in her car in [facility] she notes that the car did not move ahead of her with them she came to. She felt like her vision was fuzzy though. Has no history of seizures noted. She has otherwise been having intermittent headache over the last week plus feeling like it comes from the back of her head. Not present currently. Related Data Home Medications Medication Instructions Recorded Confirmed duloxetine 60 mg capsule,delayed 60 mg PO QDAY 11/02/21 04/04/23 release meloxicam 15 mg tablet 15 mg PO QAM 11/02/21 04/04/23 naltrexone 50 mg tablet 50 mg PO QAM 05/29/22 04/04/23 lamotrigine 150 mg tablet 150 mg PO QDAY 07/17/22 04/04/23 cariprazine 6 mg capsule 6 mg PO QDAY 09/25/22 04/04/23 trazodone 100 mg tablet 100 - 150 mg PO QPM PRN insomnia 09/25/22 04/04/23 metronidazole 0.75 % (37.5 mg/5 1 appful vaginal .twice weekly 01/18/23 04/04/23 gram) vaginal gel cariprazine 1.5 mg capsule 1.5 mg PO DAILY 02/08/23 04/04/23 (Vraylar) levonorgestrel 21 mcg/24 hours (8 1 device intrauterine ONCE 04/04/23 04/04/23 yrs) 52 mg intrauterine device (Mirena) Previous Rx's Medication Instructions Recorded fluticasone 250 mcg-salmeterol 50 1 inh inhalation BID #60 ea 07/31/22 mcg/dose blistr powdr for inhalation (Advair Diskus) albuterol sulfate 2.5 mg/3 mL 2.5 mg (3 mL) inhalation Q6H PRN 08/06/22 (0.083 %) solution for nebulization shortness of breath or wheezing #90 mL nebulizers #1 ea 08/06/22 pantoprazole 40 mg tablet,delayed 40 mg PO BID #60 tabs 09/25/22 release pregabalin 150 mg capsule 150 mg PO BID #180 caps 12/22/22 minocycline 100 mg capsule 200 mg (2 x 100 mg) PO QDAY #60 01/11/23 caps tolterodine 4 mg capsule,extended 4 mg PO QDAY #90 caps 01/30/23 release 24 hr (Detrol LA) tofacitinib 5 mg tablet (Xeljanz) 5 mg PO QDAY #30 tabs 02/13/23 ondansetron 8 mg disintegrating 8 mg PO BID PRN nausea and 02/16/23 tablet vomiting #30 tabs nicotine 14 mg/24 hr daily 1 patch transdermal QDAY #14 ea 03/23/23 transdermal patch nicotine 7 mg/24 hr daily 1 patch transdermal Q24H #28 ea 03/23/23 transdermal patch famotidine 40 mg tablet 40 mg PO QHS #90 tabs 03/30/23 albuterol sulfate 90 mcg/actuation 2 puff inhalation Q6H PRN 04/11/23 aerosol inhaler shortness of breath or wheezing #8.5 grams Allergies Allergy/AdvReac Type Severity Reaction Status Date / Time bupropion [From Wellbutrin] Allergy Severe manic Verified 04/04/23 11:48 episode latex Allergy Intermediate Verified 04/04/23 11:48 morphine Allergy Intermediate blisters Verified 04/04/23 11:48 naproxen Allergy Intermediate Verified 04/04/23 11:48 piroxicam Allergy Intermediate blisters Verified 04/04/23 11:48 Review of Systems Status of ROS: Reports: 6 or more systems reviewed and unremarkable except as noted in History and below [facility] Medical History Major depression, recurrent ?F33.9 - Major depressive disorder, recurrent, unspecified (ICD-10) Mild persistent asthma ?J45.30 - Mild persistent asthma, uncomplicated (ICD-10) Telogen effluvium ?L65.0 - Telogen effluvium (ICD-10) Condyloma acuminata ?A63.0 - Anogenital (venereal) warts (ICD-10) Urge incontinence of urine ?N39.41 - Urge incontinence (ICD-10) Social phobia (08/28/13) ?F40.10 - Social phobia, unspecified (ICD-10) Rheumatoid arthritis ?M06.9 - Rheumatoid arthritis, unspecified (ICD-10) Raynaud's disease (01/23/11) ?I73.00 - Raynaud's syndrome without gangrene (ICD-10) Posttraumatic stress disorder (06/10/20) ?F43.10 - Post-traumatic stress disorder, unspecified (ICD-10) Nodulocystic acne ?L70.0 - Acne vulgaris (ICD-10) Migraine headache ?G43.909 - Migraine, unspecified, not intractable, without status migrainosus (ICD-10) Irritable bowel syndrome ?K58.9 - Irritable bowel syndrome without diarrhea (ICD-10) Hyperlipidemia ?E78.5 - Hyperlipidemia, unspecified (ICD-10) History of colonic polyps (2019) ?Z86.010 - Personal history of colonic polyps (ICD-10) History of benzodiazepine use ?Z87.898 - Personal history of other specified conditions (ICD-10) Hidradenitis suppurativa (06/06/17) ?L73.2 - Hidradenitis suppurativa (ICD-10) Generalized anxiety disorder (08/28/13) ?F41.1 - Generalized anxiety disorder (ICD-10) Gastroesophageal reflux disease ?K21.9 - Gastro-esophageal reflux disease without esophagitis (ICD-10) Fibromyalgia (08/20/09) ?M79.7 - Fibromyalgia (ICD-10) Chronic vaginitis ?N76.1 - Subacute and chronic vaginitis (ICD-10) Borderline personality disorder (11/01/11) ?F60.3 - Borderline personality disorder (ICD-10) Bipolar I disorder ?F31.9 - Bipolar disorder, unspecified (ICD-10) Allergic rhinitis (04/16/06) ?J30.9 - Allergic rhinitis, unspecified (ICD-10) Surgical History History of hernia repair ?Z98.890 - Other specified postprocedural states (ICD-10) ?Z87.19 - Personal history of other diseases of the digestive system (ICD-10) History of surgery on wrist (1983) ?Z98.890 - Other specified postprocedural states (ICD-10) History of sinus surgery (2010) ?Z98.890 - Other specified postprocedural states (ICD-10) History of ankle fusion (1999) ?Z98.1 - Arthrodesis status (ICD-10) Family History Mother Breast cancer Colon cancer Diabetes Father High blood pressure Thyroid cancer Maternal Grandmother Diabetes Lung cancer Coronary artery disease Paternal Grandmother High blood pressure Stroke Paternal Grandfather Coronary artery disease Social History Narrative: Alcohol abuse- most recent tx 07/2020, inpatient treatment multiple times Alcoholism in recovery- most recently spent 30 days at [facility], released 03/22/20 - [place], 4 kids, non-smoker, alcoholic, no other drug use, sober since March 2023 What is your current living situation?: I presently have a place to live Problems where you live: no known problems In the past 12 months, utilities in danger of being shut off: no In past 12 months, lack of transportation kept you from medical appts, meetings, work, or getting things needed for daily living: no In the past 12 mos, have been you worried that your food would run out before you had money to buy more?: never true In the past 12 mos, the food you bought just didn't last and you didn't have money to buy more?: never true Smoking Status: Former smoker Do you use any of these nicotine containing products: None How often do you have a drink containing alcohol: never How often do you have six or more drinks on one occasion: Never AUDIT-C Alcohol total score: 0 Non-prescribed substance use: denies use How often does anyone, including family, friends and others, physically hurt you: never How often does anyone, including family, friends and others, insult or talk down to you: never How often does anyone, including family, friends and others, threaten you with harm: never How often does anyone, including family, friends and others, scream or curse at you: never Little interest or pleasure in doing things: several days Feeling down, depressed, or hopeless: more than half the days Exam Narrative: Exam Narrative: Pleasant. NAD. Speaking fluidly. Cranial nerves 2-12 intact. Pupils are 3 mm briskly reactive and equal. Accommodating. Skin is warm and dry. No edema. Well-perfused. Heart in a regular maybe slightly elevated rhythm without murmur rub or gallop. Abdomen is soft little uncomfortable she would attribute to full bladder but otherwise nontender. No flank pain. She demonstrates soreness that not really reproducible in the sacral iliac area of her low back. Pelvic exam was not done. Neck is supple and nontender. Not reproducible to discomfort/percussion about the occipital foramen. Const: Vital Signs, click to edit/add: Vital Signs - 24 hr 03/19/23 12:23 03/19/23 12:56 03/19/23 15:20 Pulse Rate [Right Pulse Oximeter] 95 89 Pulse Rate [orthos tatic lying] 66 Pulse Rate [orthos tatic sitting Puls e Oximeter] 74 Pulse Rate [orthos tatic standing Pul se Oximeter] 92 Respiratory Rate 18 18 Blood Pressure [Ri ght Upper Arm] 130/71 114/66 Blood Pressure [or thostatic lying Ri ght Arm] 115/75 Blood Pressure [or thostatic sitting] 110/73 Blood Pressure [or thostatic standing ] 97/73 Pulse Oximetry 98 99 Oxygen Delivery Me thod Room Air Room Air Documenting provider has reviewed patient's vital signs: yes Course Vital Signs Vital signs: Initial Vital Signs Pulse Rate 95 03/19/23 12:23 Pulse Rhythm Regular 03/19/23 12:23 Respiratory Rate 18 03/19/23 12:23 Blood Pressure 130/71 03/19/23 12:23 Blood Pressure Mean 90 03/19/23 12:23 Pulse Oximetry 98 03/19/23 12:23 Oxygen Delivery Method Room Air 03/19/23 12:23 Vital Signs Pulse Rate 95 03/19/23 12:23 Respiratory Rate 18 03/19/23 12:23 Blood Pressure 130/71 03/19/23 12:23 Pulse Oximetry 98 03/19/23 12:23 Oxygen Delivery Method Room Air 03/19/23 12:23 Pulse Rate 89 03/19/23 15:20 Respiratory Rate 18 03/19/23 15:20 Blood Pressure 114/66 03/19/23 15:20 Pulse Oximetry 99 03/19/23 15:20 Oxygen Delivery Method Room Air 03/19/23 15:20 Medications Administered Medications: Discontinued Medications Generic Name Dose Route Start Last Admin Trade Name Freq PRN Reason Stop Dose Admin Sodium Chloride 1,000 mls @ 1,000 mls/hr 03/19/23 14:10 03/19/23 16:00 0.9 % Sodium Chloride 1000 Ml IV 03/19/23 15:09 Infused .Q1H ONE Infusion Ketorolac Tromethamine 30 mg 03/19/23 13:23 03/19/23 13:30 Ketorolac 30 Mg/Ml Inj IVP 03/19/23 13:24 30 mg ONCE ONE Administration Medical Decision Making MDM Narrative Medical decision making narrative: She reports having had a recent exam where strings to IUD were verified. Per her concern perhaps would be good to double check location of the IUD as well as look for any other anomalies associated with uterus. Will check hemoglobin as anemia might be affecting her lightheadedness. Place on monitoring specialist. EKG. Look for electrolyte abnormalities. Does not have known thyroid dysfunction. Probably well-hydrated. She would like something for pain. Starting with ketorolac after discussion. Orthostatics are symptomatically positive and positive in pulse response. Nearly so with systolic blood pressure rise. Will be giving L normal saline. In later conversation reveals that had been taking doxazosin for nightmares and PTSD but was not really effective for this and she her psychiatrist noted that she was having lower blood pressures. Doxazosin was therefore discontinued a week ago and prior to these to these syncopal/near syncopal events. She does note a history more remotely of heart palpitations. Did have a Holter monitor placed without clear results per report. Maintains that has continued sobriety but has been taking edibles to help with sleep; this has been particularly over the last month. I did review the findings of ultrasound with superintendent local. Radiology over-read as below. IUD noted to be ?well-positioned?. I do not think that the corpus luteal cyst is noted is contributing to discomfort. FINDINGS: Uterus: 8.5 x 4.4 x 4.9 cm. Normal echotexture of the myometrium. No masses. Endometrium: Transvaginal imaging was performed to better evaluate the endometrium. Endometrial thickness measures 4 mm. No sign of endometrial mass or fluid. Well-positioned intrauterine device. Right ovary measures 3.2 x 1.5 x 1.9 centimeters. Left ovary measures 4.7 x 2.4 x 3.2 centimeters. No suspicious ovarian or adnexal masses. Left corpus luteal cyst measuring 2.8 centimeters. Normal arterial and venous blood flow is demonstrated in both ovaries. Cul-de-sac: No significant free fluid. IMPRESSION: Well-positioned intrauterine device; otherwise, unremarkable exam. Did request head CT a secondary to these syncopal events. By my read looks to be unremarkable. INDICATION: Recurrent syncope TECHNIQUE: Non-contrast CT of the head is submitted. No comparisons. FINDINGS: The ventricles, sulci and gyri are of normal size, shape and contour. Midline structures are centrally located. No convincing evidence of intra- or extra-axial fluid collections. IMPRESSION: 1. No radiographic evidence of acute intracranial abnormalities. Overall improved during time in the emergency department. No further events while monitored. I suspect some combination of poor sleep, medication effect and orthostatic hypotension contributing. Pain response? See patient discharge plan Lab Data Lab results reviewed: Yes I reviewed the patient's lab results Labs: Lab Results 03/19/23 03/19/23 03/19/23 Range/Units 13:10 13:15 13:28 WBC 6.49 (4.50-11.00) K/uL RBC 4.27 (4.00-5.20) m/uL Hgb 12.5 (12.0-16.0) gm/dL Hct 37.7 (33.0-51.0) % MCV 88 (80-100) fL MCH 29 (26-34) pg MCHC 33 (32-36) gm/dL RDW Coeff of Dimitri 12.4 (11.5-15.5) % Plt Count 240 (140-440) K/uL Neut % (Auto) 68.4 (42.0-72.0) % Lymph % (Auto) 23.9 (20-44) % [place] % (Auto) 6.0 (0.0-11.0) % Eos % (Auto) 1.2 (0.0-7.0) % Baso % (Auto) 0.3 (0.0-3.0) % Neut # (Auto) 4.44 (1.7-7.0) K/uL Lymph # (Auto) 1.55 (0.90-2.90) K/uL [place] # (Auto) 0.40 (0.00-0.90) K/UL Eos # (Auto) 0.08 (0.00-0.50) K/uL Baso # (Auto) 0.02 (0.00-0.30) K/uL Abs Immat Gran (auto) 0.01 (0.00-0.30) K/uL Imm/Tot Granulo (auto) 0.2 % Sodium 136 (135-149) mmol/L Potassium 3.6 (3.6-5.1) mmol/L Chloride 104 (96-114) mmol/L Carbon Dioxide 22 (20-32) mmol/L Anion Gap 10 (7-15) mEq/L BUN 6 (5-24) mg/dL Creatinine 0.7 (0.5-1.5) mg/dL Estimated Creat Clear 99.01 Estimated GFR 111 ml/min Glucose 88 (60-115) mg/dL Calcium 9.0 (8.4-10.6) mg/dL Urine Color Yellow (Yellow) Urine Appearance Clear (Clear) Urine pH 7.0 (5.0-8.5) Ur Specific [place] 1.010 (1.000-1.030) Urine Protein Negative (Negative) Urine Glucose (UA) Negative (Negative) Urine Ketones Negative (Negative) Urine Blood Trace-lysed A (Negative) Urine Nitrite Negative (Negative) Urine Bilirubin Negative (Negative) Urine Urobilinogen 0.2 (0.2-1.0) Ur Leukocyte Esterase 1+ A (Negative) Urine RBC 2-5 A (0-2) Urine WBC 0-2 (0-5) Ur Squamous Epith Cells None (None-Few) Urine Bacteria None (None) Urine HCG, Qual Negative (Negative) ECG Data Attestation: I personally reviewed and interpreted this ECG as follows: (Normal sinus rhythm rate of 82.) Discharge Plan Discharge Clinical Impression: Orthostatic syncope, Low back pain Patient Disposition: Home, Self-Care Condition: Improved Additional Instructions: You did describe it least 1 of these syncopal episodes where you stood up and got lightheaded and passed out. This is what would be defined as orthostatic hypotension and you were testing positive here for that which is why we gave you fluids. Be sure to stay well-hydrated. There could be some inter play of your medications or supplements that might be contributing to these episodes; would be good to review them with primary care or a pharmacist. The low back pain you been describing certainly could be secondary to your IUD particularly as it seems to have started around that time. Not so clearly musculoskeletal as you can not really reproduce it otherwise. I guess the pros and cons of this IUD might need to be discussed as well. I do not know though the cause of your low back pain at this point. Since you have tolerated ibuprofen, you can take up to 800 mg of ibuprofen per dose. Prescriptions: No Action duloxetine 60 mg capsule,delayed release(DR/EC) 60 mg PO QDAY Patient Comments: TAKE ONE CAPSULE BY MOUTH EVERY MORNING meloxicam 15 mg tablet 15 mg PO QAM naltrexone 50 mg tablet 50 mg PO QAM Patient Comments: TAKE 1/2 TABLET BY MOUTH THREE TIMES A DAY lamotrigine 150 mg tablet 150 mg PO QDAY Patient Comments: TAKE ONE TABLET BY MOUTH EVERY DAY fluticasone propion-salmeterol [Advair Diskus] 250-50 mcg/dose blister with device 1 inh inhalation BID Qty: 60 5RF Mirena 21 mcg/24 hours (8 yrs) 52 mg intrauterine device 1 device intrauterine ONCE Rx Instructions: as a single dose cariprazine 6 mg capsule 6 mg PO QDAY trazodone 100 mg tablet 100 - 150 mg PO QPM PRN (Reason: insomnia) pantoprazole 40 mg tablet,delayed release (DR/EC) 40 mg PO BID Qty: 60 5RF minocycline 100 mg capsule 200 mg PO QDAY Qty: 60 5RF metronidazole 0.75 % (37.5mg/5 gram) gel 1 appful vaginal .twice weekly Rx Instructions: Twice weekly Vraylar 1.5 mg capsule 1.5 mg PO DAILY (DME) nebulizers Mis See Rx Instructions .Route Qty: 1 0RF Rx Instructions: As directed albuterol sulfate 2.5 mg /3 mL (0.083 %) solution for nebulization 2.5 mg inhalation Q6H PRN (Reason: shortness of breath or wheezing) Qty: 90 5RF pregabalin 150 mg capsule 150 mg PO BID Qty: 180 1RF tolterodine [Detrol LA] 4 mg capsule,extended release 24hr 4 mg PO QDAY Qty: 90 1RF Xeljanz 5 mg tablet 5 mg PO QDAY Qty: 30 2RF ondansetron 8 mg tablet,disintegrating 8 mg PO BID PRN (Reason: nausea and vomiting) Qty: 30 1RF nicotine 14 mg/24 hr patch 24 hour 1 patch transdermal QDAY Qty: 14 0RF nicotine 7 mg/24 hr patch 24 hour 1 patch transdermal Q24H Qty: 28 2RF famotidine 40 mg tablet 40 mg PO QHS Qty: 90 3RF albuterol sulfate 90 mcg/actuation HFA aerosol inhaler 2 puff inhalation Q6H PRN (Reason: shortness of breath or wheezing) Qty: 8.5 1RF Follow Up/Referrals: Willy Serrano MD [Primary Care Provider] - Stand Alone Forms: [employer] Info Instructions
--- NOTE | 2023-03-19 12:55 | CRLHL7_ITS ---
For Patients: As a result of the Century Cures Act, medical imaging exams and procedure reports are released immediately into your electronic medical record. You may view this report before your referring provider. If you have questions, please contact your health care provider. INDICATION: HEAVY BLEEDING, VERIFY IUD PLACEMENT TECHNIQUE: Ultrasound pelvis transvaginal for better assessment or to better visualize the endometrium. Real-time sonographic images with spectral and color Doppler imaging of the ovaries were obtained. COMPARISON: December 22, 2022 FINDINGS: Uterus: 8.5 x 4.4 x 4.9 cm. Normal echotexture of the myometrium. No masses. Endometrium: Transvaginal imaging was performed to better evaluate the endometrium. Endometrial thickness measures 4 mm. No sign of endometrial mass or fluid. Well-positioned intrauterine device. Right ovary measures 3.2 x 1.5 x 1.9 centimeters. Left ovary measures 4.7 x 2.4 x 3.2 centimeters. No suspicious ovarian or adnexal masses. Left corpus luteal cyst measuring 2.8 centimeters. Normal arterial and venous blood flow is demonstrated in both ovaries. Cul-de-sac: No significant free fluid. IMPRESSION: Well-positioned intrauterine device; otherwise, unremarkable exam. Dictated by Vadim King MD @ 03/19/2023 3:31:17 PM (Electronically Signed)
[2023-03-19 12:56] VITALS: BP 110/73; BP 115/75; BP 97/73; PULSE 66; PULSE 74; PULSE 92
--- OUTSIDE RECORDS SUMMARY | 2023-03-19 13:13 | XMS_ITS | Continuity of Care Document ---
Author Name Unknown Organization [facility] Address [address] [place] [address] Phone Care Team Providers Care Leveler Name Role Phone Brodie Saldaña Unavailable Unavailable [...] Available - Active Procedures Procedure Date Office/Outpatient Visit,[facility], [facility] 2020 Advance Directives Directive Yes / No Effective Date File Name No Information Encounters Encounter Description Practice Location Reason(s) For Visit Diagnoses Date Provider Providers Copied on Encounter [facility], [address], [place], [place], [id number], [place] tel:[phone] [facility] No Information Devante Brodie. [facility], [address], [place], [id number], [place]. tel:[phone] Office/Outpat ient Visit,[place], [facility], [address], [place], [id number], [place] tel:[phone] [facility] Low back pain Devante Brodie. [facility], [address], [place], [id number], [place]. tel:[phone] Referring Provider: Konstantin Terrell, [address], [address]. tel:[phone] Family History Family Member Type Diagnosis Age At Onset No Information Payers Payer name Insurance type Covered libertarian ID [employer] ortega(s) [facility] [id number] [facility] [id number] Social History Type Description Quantity Date Captured [...]
--- OUTSIDE RECORDS SUMMARY | 2023-03-19 13:13 | XMS_ITS | Continuity of Care Document ---
Author Name Unknown Organization [facility] Address [address] [facility] [place] [address] Phone Care Team Providers Care Clinical Documentation Specialist Name Role Phone Will MD [place], [...] - Active Procedures Procedure Date OFFICE/OUTPATIENT VISIT, [facility] OFFICE/OUTPATIENT VISIT, [facility] Advance Directives Directive Yes / No Effective Date File Name No Information Encounters Encounter Description Practice Location Reason(s) For Visit Diagnoses Date Provider Providers Copied on Encounter [facility], [address] [place] [address], [id number] , [place] tel: [phone] [facility] No Information 2 Corey Huntley. [address] [place], [place] [address]N[place], [place], [id number] , [place]. tel: [phone] OFFICE/OUTPA TIENT VISIT, [facility], [address] [place] [address] [place], [id number] , [place] tel: [phone] [facility] Back Pain (chief complaint) FibromyalgiaOther intervertebral disc displacement, lumbar regionBipolar disorder, unspecifiedAlcohol abuse, in remissionOther mcc (current) drug therapy Sep- 1 Burdick Josh. [place], [address], [place], [address], [place]. tel:[phone] Referring Provider: Audi Dominguez, [address] [place], [place] [address], [address] . tel:[phone] [facility], [address] [place] [address], [id number] , [place] tel: [phone] [facility] No Information 1 Burdick Josh. [place], [address], [place], [address], [place]. tel:[phone] OFFICE/OUTPA TIENT VISIT, NEW [facility], [address] [place] [address], [id number] , [place] tel: [phone] [facility] Back Pain (chief complaint) FibromyalgiaOther intervertebral disc displacement, lumbar regionBipolar disorder, unspecifiedAlcohol abuse, in remissionOther mcc (current) drug therapy Sep-0 9-202 1 Gennaro Moreno. [place], [address], [place], [address], [place]. tel:[phone] Referring Provider: Audi Dominguez, [address] [place], [address] . tel:[phone] Family History Family Member Type Diagnosis Age At Onset Mother Problem Bulging discs/back surgery Payers Payer name Insurance type Covered green party ID Authoriza tirebeca(s) [facility] [id number] Social History Type Description Quantity Date Captured Comments Sex Female Smoking Status No Information Chief Complaint And Reason For Visit No Information Reason For Referral Reason For Referral No Information Plan Of Treatment Date Type Action Status Goal Update Social History. Due o n [...] of cauda equina syndrome. Continues to utilize [employer]. She is interested in pursuing any treatment option that can help ease some of the painShe states she previously consulted with rheumatology but did not have a good experience. She reports she has previously been advised to complete the pain rehab program at [facility] by another provider.She details she continues [...] She starts PT this week. Currently doing [employer] and uses a [employer] at home. Certified for cannabis, but too [...]
--- OUTSIDE RECORDS SUMMARY | 2023-03-19 13:13 | XMS_ITS | Continuity of Care Document ---
Author Name Unknown Organization [facility] Address [address] [place] [address] Phone Care Team Providers Care Orthodontic Assistant Name Role Phone David Herrera MD Unavailable Unavailable Advance Directives Directive Yes / No Effective Date File Name No Information Encounters Encounter Description Practice Location Reason(s) For Visit Diagnoses Date Provider Providers Copied on Encounter [facility], [address], [place], [address], [place] tel:[phone] [facility], No Information Mar-2 0-201 3 Javier Hernandez. [facility] [address], [place], [address], [place]. tel:[phone] Family History Family Member Type Diagnosis Age [...]
--- OUTSIDE RECORDS SUMMARY | 2023-03-19 13:14 | XMS_ITS | Continuity of Care Document ---
Author Name Unknown Organization [facility] Address [address] [facility] [place] [address] Phone Care Team Providers Care Configuration Specialist Name Role Phone Will MD [place], [...] Active Procedures Procedure Date OFFICE/OUTPATIENT VISIT, [facility] OFFICE/OUTPATIENT VISIT, [facility] Advance Directives Directive Yes / No Effective Date File Name No Information Encounters Encounter Description Practice Location Reason(s) For Visit Diagnoses Date Provider Providers Copied on Encounter [facility], [address] [place] [address], [id number] , [place] tel: [phone] [facility] No Information 2 Corey Huntley. [address] [place], [place] [address], [place], [id number] , [place]. tel: [phone] OFFICE/OUTPA TIENT VISIT, [facility], [address] [place] [address] [place], [id number] , [place] tel: [phone] [facility] Back Pain (chief complaint) FibromyalgiaOther intervertebral disc displacement, lumbar regionBipolar disorder, unspecifiedAlcohol abuse, in remissionOther retirement (current) drug therapy Sep- 1 Burdick Josh. [employer] [address], [place], [address], [place]. tel:[phone] Referring Provider: Audi Dominguez, [address] [place], [place] [address], [place], [address] . tel:[phone] [facility], [address] [place] [address], [id number] , [place] tel: [phone] [facility] No Information 1 Burdick Josh. [employer] [address], [place], [address], [place]. tel:[phone] OFFICE/OUTPA TIENT VISIT, NEW [facility], [address] [place] [address], [id number] , [place] tel: [phone] [facility] Back Pain (chief complaint) FibromyalgiaOther intervertebral disc displacement, lumbar regionBipolar disorder, unspecifiedAlcohol abuse, in remissionOther retirement (current) drug therapy Sep-0 9-202 1 Gennaro Moreno. [employer] [address], [place], [address], [place]. tel:[phone] Referring Provider: Audi Dominguez, [address] [place], [address] . tel:[phone] Family History Family Member Type Diagnosis Age At Onset Mother Problem Bulging discs/back surgery Payers Payer name Insurance type Covered green party ID Authoriza tirebeca(s) [facility] [id number] Social History Type Description Quantity Date Captured [...] of cauda equina syndrome. 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 She is interested in pursuing any treatment option that can help ease some of the painShe states she previously consulted with rheumatology but did not have a good experience. She reports she has previously been advised to complete the pain rehab program at [facility] by another provider.She details she continues to [...] She starts PT this week. 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 Certified for cannabis, but too [...]
--- OUTSIDE RECORDS SUMMARY | 2023-03-19 13:14 | XMS_ITS | Continuity of Care Document ---
Author Name Unknown Organization [facility] Address [address] [place] [address] Phone Care Team Providers Care Oncology Navigator Name Role Phone Brodie Saldaña Unavailable Unavailable [...] Available - Active Procedures Procedure Date Office/Outpatient Visit,[facility], [facility] Advance Directives Directive Yes / No Effective Date File Name No Information Encounters Encounter Description Practice Location Reason(s) For Visit Diagnoses Date Provider Providers Copied on Encounter [facility], [address], [place], [place], [id number], [place] tel:[phone] [facility] [place] No Information Devante Brodie. [facility], [address], [place], [id number], [place]. tel:[phone] Office/Outpat ient Visit,New, [facility], [address], [place], [id number], [place] tel:[phone] [facility] Low back pain Devante Brodie. [facility], [address], [place], [id number], [place]. tel:[phone] Referring Provider: Konstantin Terrell, [address], [address]. tel:[phone] Family History Family Member Type Diagnosis Age At Onset No Information Payers Payer name Insurance type Covered democrat ID Viet ortega(s) [facility] [id number] [facility] [id number] Social History Type Description Quantity Date Captured [...]
--- OUTSIDE RECORDS SUMMARY | 2023-03-19 13:14 | XMS_ITS | Continuity of Care Document ---
Author Name Unknown Organization [facility] Address [address] [place] [address] Phone Care Team Providers Care Cattle Driver Name Role Phone David Herrera MD Unavailable Unavailable Advance Directives Directive Yes / No Effective Date File Name No Information Encounters Encounter Description Practice Location Reason(s) For Visit Diagnoses Date Provider Providers Copied on Encounter [facility], [address], [place], [address], [place] tel:[phone] [facility], No Information Mar-2 0-201 3 Javier Hernandez. [facility] [address], [place], [address], [place]. tel:[phone] Family History Family Member Type Diagnosis Age [...]
[2023-03-19 13:22] LABS: Basophils Absolute Auto 0.02 K/uL (0.00-0.30); Basophils Percent Auto 0.3 % (0.0-3.0); Eosinophils Absolute Auto 0.08 K/uL (0.00-0.50); Eosinophils Percent Auto 1.2 % (0.0-7.0); Hematocrit 37.7 % (33.0-51.0); Hemoglobin* 12.5 gm/dL (12.0-16.0); Immature Granulocytes Abs Auto 0.01 K/uL (0.00-0.30); Immature Granulocytes Pct Auto 0.2 %; Lymphocytes Absolute Auto 1.55 K/uL (0.90-2.90); Lymphocytes Percent Auto 23.9 % (20-44); Mean Corpuscular HGB Conc 33 gm/dL (32-36); Mean Corpuscular Hemoglobin 29 pg (26-34); Mean Corpuscular Volume 88 fL (80-100); Neutrophils Absolute Auto 4.44 K/uL (1.7-7.0); Neutrophils Percent Auto 68.4 % (42.0-72.0); Platelet Count* 240 K/uL (140-440); RDW Coefficient of Variation % 12.4 % (11.5-15.5); Red Blood Count 4.27 m/uL (4.00-5.20); Slide Review Reflex No; White Blood Count* 6.49 K/uL (4.50-11.00)
[2023-03-19 13:26] LABS: Appearance Urine Clear (Clear); Bilirubin Urine Negative (Negative); Blood Urine Trace-lysed (Negative); Color Urine Yellow (Yellow); Glucose Urine Negative (Negative); Ketones Urine Negative (Negative); Leukocyte Esterase Urine 1+ (Negative); Nitrite Urine Negative (Negative); Protein Urine Negative (Negative); Urobilinogen Urine 0.2 (0.2-1.0)
[2023-03-19] MEDS: KETOROLAC 30 MG/ML inj IVP (13:30)
[2023-03-19 13:34] LABS: Chloride* 104 mmol/L (96-114)
[2023-03-19 13:35] LABS: Potassium* 3.6 mmol/L (3.6-5.1); Sodium* 136 mmol/L (135-149)
[2023-03-19 13:38] LABS: Anion Gap 10 mEq/L (7-15); Blood Urea Nitrogen* 6 mg/dL (5-24); Carbon Dioxide* 22 mmol/L (20-32); Creatinine* 0.7 mg/dL (0.5-1.5); Est. Creatinine Clearance* 99.01; Estimated Glomerular Filt Rate 111 ml/min; Glucose* 88 mg/dL (60-115)
[2023-03-19 13:40] LABS: WBC Urine 0-2 (0-5)
[2023-03-19 13:47] LABS: Ur HCG Qualitative* Negative (Negative)
--- NOTE | 2023-03-19 14:25 | CRLHL7_ITS ---
For Patients: As a result of the Century Cures Act, medical imaging exams and procedure reports are released immediately into your electronic medical record. You may view this report before your referring provider. If you have questions, please contact your health care provider. INDICATION: Recurrent syncope TECHNIQUE: Non-contrast CT of the head is submitted. No comparisons. FINDINGS: The ventricles, sulci and gyri are of normal size, shape and contour. Midline structures are centrally located. No convincing evidence of intra- or extra-axial fluid collections. IMPRESSION: 1. No radiographic evidence of acute intracranial abnormalities. Dictated by Christiano Cheng MD @ 03/19/2023 4:07:19 PM Please note that all CT scans at this facility use dose modulation, iterative reconstruction, and/or weight-based dosing when appropriate to reduce radiation dose to as low as reasonably achievable. Dictated by: Christiano Cheng MD @ 03/19/2023 16:07:25 (Electronically Signed)
[2023-03-19] MEDS: 0.9 % SODIUM CHLORIDE 1000 ml 1,000 ML IV (14:45)
[2023-03-19 15:20] VITALS: BP 114/66; PULSE 89; RESP 18; O2SAT 99
== END 2023-03-19 17:05 | disposition home or self-care (01) ==
PROVIDERS: Emergency Provider Family Medicine; PCP Family Medicine
DX: I95.1 Orthostatic hypotension (principal); M54.50 Low back pain, unspecified
CPT/HCPCS: 36415; 70450; 76830; 80048; 81001; 81025; 85025; 93005; 95992; 96361; 96374; 99284; J1885; J7030

== ENCOUNTER 2023-05-18 15:20 | Outpatient (CLI) | payer BC, SELFPAY ==
--- NOTE | 2023-05-18 15:30 | MR_ITS ---
[facility] [address] [facility] [address] Phone:?[phone] Fax:?[phone] Referring Physician Information: Willy Serrano M.D. [address] [facility] [address] Phone:?[phone] Fax:?[phone] Patient:Philippe Plummer D.O.B:?1980 Sex:?Female Phone:?[phone] [facility] MRN:?[id number] Exam Date:?05/18/2023 EXAM: MRI of the LEFT SHOULDER, without contrast CLINICAL: Female, 43 years old, with left shoulder pain. INDICATION: Evaluate for shoulder derangement etiology. PRIOR SURGERY: None reported. PLAIN FILMS: None available. COMPARISONS: No prior MRIs available. TECHNICAL: Using a 1.5T MR scanner and a localizing shoulder surface coil: 3.0 mm?coronal obliques: PD, T2, STIR 3.0 mm?sagittal obliques: PD, T2 3.0 mm?axials: PD, T2 SEDATION: None. CONTRAST: None. IMPRESSION: 1. Ongoing reactive changes of osteoarthritis of the acromioclavicular joint with potential to be associated with any clinical presentation of symptoms referable to the AC joint. 2. Associated inferior hypertrophy of the acromiohumeral joint contributes encroachment upon the subacromial space, abutting and slightly encroaching upon the underlying suitcase myotendinous junction. 3. Slight subacromial bursal edema. 4. Otherwise unremarkable left shoulder MRI. 5. No rotator cuff tear or becki tendinopathy. 6. No biceps tendon pathology. 7. No labral tears. 8. No glenohumeral chondromalacia/osteoarthritis or pathologic effusion. FINDINGS: Glenohumeral joint: Effusion/cyst: Physiologic glenohumeral joint effusion. No paralabral ganglion cyst. Articular cartilage: Humeral head: No osteochondral abnormalities. Glenoid: No osteochondral abnormalities. Loose bodies: No demonstrable loose bodies. Inferior glenohumeral ligament/axillary recess: The axillary recess is normal in thickness and signal. No evidence of adhesive capsulitis or capsuloligamentous injury. Labrum: No labral tears. Bones: Proximal humerus: No fracture or marrow edema/pathology. No humeral Hill-Sachs or reverse Hill-Sachs lesion/impaction or contusion. Glenoid: No fracture or marrow edema/pathology. No osseous Bankart lesion. Coracoacromial arch: Acromion morphology: Mild type II acromion without defined subacromial spur/enthesophyte. No mesoacromion or preacromion. Acromiohumeral space: Borderline narrow at a minimum of 4 mm. Coracohumeral space: Widely patent. Acromioclavicular joint: Joint: Ongoing reactive changes of arthrosis/osteoarthritis and/or injury of the acromioclavicular joint with moderate bone marrow edema of the distal clavicular facet and mild periarticular soft tissue edema (coronal STIR series 4, images 7- 12; axial T2 images 5-6). Associated inferior capsular hypertrophy greater than slight inferior marginal osteophyte formation results in moderate encroachment upon the subacromial space where it abuts and slightly encroaches upon contour of the underlying supraspinatus musculotendinous junction without further encroachment (coronal PD series 5, images 10 & 11; sagittal T2 series 8, images 12 & 13). Ligaments: Coracoclavicular ligaments are intact. Bursae: Subacromial-subdeltoid: Slight subacromial bursal edema. Subcoracoid: No convincing subcoracoid bursal thickening/bursitis. Rotator cuff and muscles/tendons: Supraspinatus: No tendinopathy, tear or atrophy. Infraspinatus: No tendinopathy, tear or atrophy. Teres minor: No tendinopathy, tear or atrophy. Subscapularis: No tendinopathy, tear or atrophy. Deltoid: No strain or atrophy. Biceps tendon, long head: The long head of the biceps tendon is present within the bicipital groove. Intra-articular and extra-articular segments are intact without tendinopathy or displacement. Axilla: No axillary masses or abnormally enlarged lymphadenopathy. [facility] Electronically signed on 05/20/2023 8:49:00 AM by Eleno Shelley M.D.
== END 2023-05-18 15:21 | disposition home or self-care (01) ==
LOC: MRI 15:20
PROVIDERS: PCP Family Medicine; Visit Provider Family Medicine
DX: M25.512 Pain in left shoulder (principal); M19.012 Primary osteoarthritis, left shoulder
CPT/HCPCS: 73221

== ENCOUNTER 2023-06-29 12:01 | Outpatient (CLI) | payer BC, SELFPAY ==
[2023-06-29 14:28] LABS: Chlamydia DNA Amplified* NOT DETECTED (No Detected); GC DNA Amplified* NOT DETECTED (No Detected)
== END 2023-06-29 12:02 | disposition home or self-care (01) ==
LOC: NFLDREF 12:03
PROVIDERS: PCP Family Medicine; Visit Provider Registered Nurse
DX: Z11.3 Encounter for screening for infections with a predominantly sexual mode of transmission (principal)
CPT/HCPCS: 86592; 86703; 87491; 87591

== ENCOUNTER 2023-07-09 14:31 | Outpatient (CLI) | payer BC, SELFPAY ==
--- OUTSIDE RECORDS SUMMARY | 2023-07-09 14:35 | XMS_ITS | Clinical Summary ---
Author Name Unknown Organization [facility] Address [place], [place] [address] Care Team Providers Care Re Recording Mixer Name Role Phone Willy Serrano MD Primary Care Provider + Allergies Active Allergy Reactions Criticality Noted Date Comments Piroxicam Stomatitis,Rash 10/10/2006 Latex Rash 03/08/2006 Other reaction(s): Other (see comments) Eszopiclone Nausea And Vomiting 05/04/2014 Morphine GI Upset 10/12/2008 Pt passes out Other reaction(s): GI intolerance Naproxen Contact Dermatitis 03/08/2006 Naproxen Sodium Other - Describe In Comment Field 01/23/2011 Medications Medication Sig Dispensed Refills Start Date End Date Status levonorgestrel intrauterine device (MIRENA) 20 mcg/24 hours (5 yrs) 52 mg IUD Inject 1 Each intrauterine one time. Active pantoprazole (PROTONIX) 40 mg delayed-release tabletIndications:Ga stro-esophageal reflux disease without esophagitis Take 1 tablet by mouth 2 times daily before meals. 90 tablet 3 11/14/2019 Active metroNIDAZOLE 0.75% vaginal (METROGEL) 0.75 % vaginal gel Insert 1 Applicatorful into the vagina once daily if needed. Active cloNIDine HCL (CATAPRES) 0.1 mg tablet Take 0.2 mg by mouth once daily in the evening. Active diphenoxylate-atropi ne, 2.5-0.025 mg, (LOMOTIL) 2.5-0.025 mg tablet Take 5 mg by mouth 4 times daily if needed for Diarrhea. Active hyoscyamine (LEVBID) 0.375 mg Controlled-Release tablet Take 0.375 mg by mouth every 12 hours. Active minocycline (MINOCIN) 100 mg capsuleIndications:c ystic acne Take 100 mg by mouth once daily. Active QUEtiapine (SEROQUEL) 50 mg tablet Take 50 mg by mouth 2 times daily if needed (anxiety). Active spironolactone (ALDACTONE) 100 mg tablet Take 100 mg by mouth once daily. Active gemfibroziL (LOPID) 600 mg tablet Take 600 mg by mouth at bedtime. Active cholecalciferol (VITAMIN D3) 5,000 unit capsule Take 5,000 units by mouth once daily. 40 units = 1 mcg (5000 units = 125 mcg) Active DULoxetine (CYMBALTA) 60 mg Delayed-release capsule Take 60 mg by mouth once daily. Take along with one 30 mg capsule for total dose of 90 mg. Active DULoxetine (CYMBALTA) 30 mg Delayed-release capsule Take 30 mg by mouth once daily. Take along with one 60 mg capsule for total dose of 90 mg Active etanercept (EnbreL) 50 mg/mL (1 mL) syringe Inject 50 mg subcutaneous once weekly. Active lurasidone (LATUDA) 20 mg tablet Take 20 mg by mouth once daily with evening meal. Active meloxicam 15 mg tablet Take 15 mg by mouth once daily. Active naltrexone (REVIA) 50 mg tablet Take 50 mg by mouth 2 times daily. Active pregabalin (LYRICA) 150 mg capsule Take 150 mg by mouth 3 times daily. Active prochlorperazine (COMPAZINE) 10 mg tablet Take 10 mg by mouth 3 times daily if needed for Nausea/Vomiting. Active QUEtiapine (SEROQUEL) 300 mg tablet Take 300 mg by mouth at bedtime. Active tiZANidine (ZANAFLEX) 4 mg tablet Take 4 mg by mouth every 8 hours if needed for Muscle Spasm. Active ondansetron (ZOFRAN ODT) 4 mg disintegrating tabletIndications:Me dication side effect,Nausea Place 1 Tablet (4 mg) on the tongue every 8 hours if needed for Nausea/Vomiting. 8 Tablet 02/22/2022 Active Active Problems Problem Noted Date Diagnosed Date Intentional overdose 03/30/2021 Alcoholic intoxication with complication 021 PTSD (post-traumatic stress disorder) 06/10/2020 Irritable bowel syndrome wit h both constipation and diarrhea 06/10/2020 Bartholin's gland cyst 05/07/2019 Obesity (BMI 30-39.9) 05/07/2019 Hypertriglyceridemia 04/28/2019 Alcoholic 02/10/2018 Hidradenitis suppurativa 06/06/2017 Tobacco use disorder 02/28/2015 Bipolar affective disorder, rapid cycling 2013 Generalized anxiety disorder 08/28/2013 Social anxiety disorder 08/28/2013 Anorexia nervosa, restricting type 08/28/2013 Controlled substance agreement signed and scanne d 05/29/13 05/29/2013 Borderline personality disorder 11/01/2011 Raynaud's disease 01/23/2011 Issue of repeat prescriptions 11/02/2010 Overview: RHEUMATOID ARTHRITIS, Fibromyalgia - taking Klonopin and Ultram IUD (intrauterine device) in place 08/25/2010 Fibromyalgia 08/20/2009 GERD (gastroesophageal reflux disease) 9 ALLERGIC RHINITIS 04/16/2006 Overview: Environmental Allergies Rheumatoid arthritis(714.0) 05/03/1985 Migraine headache Resolved Problems Problem Noted Date Diagnosed Date Resolved Date Bipolar disorder with curren t episode depressed 11/26/2019 06/10/2020 Drug-induced sleep disorder 05/10/2018 05/07/2019 Multiple gastric ulcers 02/11/201808/2019 Anemia due to acute blood loss 02/11/2018 05/07/2019 Upper GI bleed 02/10/2018 05/07/2019 Dyssomnia 12/18/2017 05/07/2019 Alcohol abuse; reports in ve ry short term remission 07/24/2014 10/16/2014 Eating disorder, unspecified 04/29/2012 08/28/2013 Encounter for long-term (cur rent) use of other medications 02/07/2012 02/07/2012 Overview: MH controlled sub agreement 02/11 Encounter for long-term (cur rent) use of other medications 12/13/2011 05/07/2019 Overview: Cont sub agreement 12/12 Bipolar I disorder, most rec ent episode (or current) unspecified 11/22/2011 08/28/2013 Bipolar disorder 07/18/2011 11/01/2011 Major depression, recurrent 02/19/2010 11/22/2011 Overview: R/o BPAD Anxiety Disorder, NOS; Socia l Anxiety, Panic Disorder and PTSD symptoms 02/19/2010 08/28/2013 Depressive disorder, not elsewhere classified 04/16/19 07 02/19/2010 Immunizations Name Administration Dates Next Due Human Papilloma Virus Vaccine 06/21/2006, 006 Influenza A (H1N1), Inactiva blanca (Age >=3 Years) 02/26/2009 Influenza Virus, Unspecified 12/31/2017 Influenza, IIV3 (Age >=3 years) 01/31/20 13,12/25/2011,03/06/2011,2007 MMR 04/02/1994 Td (Age >=7 Years) 07/21/1997 [...] Used Date Smoking Tobacco: Every Day Cigarettes Smokeless Tobacco: Never Tobacco Cessation:Ready to Q uit: No; Counseling Given: Yes Comments:does not want to quit Alcohol Use Standard Drinks/Week Comments Yes 0 (1 standard drink = 0.6 oz pur e alcohol) few drinks per day Sex and Gender Information Value Date Recorded Sex Assigned at Not on file Gender Identity Not on file Sexual Orientation Not on file Obstetrics History Para Term AB IAB SAB Ectopic Multiple Livin g Live Births 4 3 2 1 1 0 1 0 0 3 3 Date Outcome GA Total Labor Labor/2nd/3rd Weight Sex Delivery Anes PTL Steffany A1 A5 Name Cl in 10/28 Term 38w 0d 3.29 kg (7 lb 4 oz) F VAGINAL VACU Trice ng Alana McInt yre Delivery Location:[facility] 07/18 Term 37w 0d 2.38 kg (5 lb 4 oz) M VAGINAL VACU Trice ng 9 9 Krist opher McInt yre Delivery Location:[facility] 12/15 SAB 10w 0d SPONTANEO US Feta l Aurora se Delivery Location:[facility] Comments:D&C 10/20 36w 5d 3.12 kg (6 lb 14 oz) F Vag Trice ng 8 9 Maken zie McInt yre Delivery Location:[facility] Last Filed Vital Signs Vital Sign Reading Time Taken Comments Blood Pressure 105/66 08/03/2022 11:31 AM CDT Pulse 118 08/03/2022 11:31 AM CDT Temperature 36.6 ??C (97.8 ??F) 08/03/2022 11:31 AM C DT Respiratory Rate 22 08/03/2022 11:31 AM CDT Oxygen Saturation 94% 08/03/2022 11:31 AM CDT Inhaled Oxygen Concentration - - Weight 86.2 kg (190 lb) 08/03/2022 11:31 AM CDT Height 167.6 cm (5' 6) 08/03/2022 11:31 AM CDT Body Mass Index 30.67 08/03/2022 11:31 AM CDT Plan of Treatment Health Maintenance Due Date Last Done Comments Hepatitis C screening for age 18-79 01/28/2000 BMI (ht and wt on same day) for age 18+ 06/30/2016 07/01/2015 Tetanus booster 11/03/2018 11/03/2008, 07/21/1997 Depression screening for age 12+ 06/09/2021 06/09/2020, 11/24/2019, 07/01/2015, Additional history exists COVID-19 vaccine series ( season) 2022 Influenza for age 9-49 12/02/2023 8, 01/30/2013, 12/25/2011, Additional history exists Pap test for age 21-65 08/09/2024 2, 08/09/2021, 08/04/2013, Additional history exists HIV for age 15-65 Completed 03/25/2008, 12/18/2006 Tdap Completed 11/03/2008 Pneumococcal series for age 6-64 Aged Out No longer eligible based on patient's age to complete this topic Procedures Procedure Name Priority Date/Time Associated Diagnosis Comments HPV THIN PREP Routine 08/09/2021 12:45 PM CDT ANTI HIV 1/2 Routine 03/25/2008 10:58 AM MAINTAINABILITY ENGINEER Supervision of Other Normal from Last 3 Months or Most Recently Relevant to Health Maintenance Results * HPV HIGH RISK (08/09/2021 12:45 PM CDT) TYPE 16 Negative Negative 08/11/2021 10:50 AM CDT [facility] TYPE 18 Negative Negative 08/11/2021 10:50 AM CDT [facility] OTHER HIGH RISK TYPES Negative Negative 08/11/2021 10:50 AM CDT [facility] Other (Cervical/Vagina l) 08/09/2021 12:45 PM CDT 08/10/2021 7:[address] [facility] - 08/11/2021 10:50 AM CDT HPV types 16, 18, 31, 33, 35, 39, 45, 51, 52, 56, 58, 59, 66 and 68 DNA were undetectable or below the pre-set threshold. Methodology: Valentino Anu 4800 HPV Test Willy Serrano MD MICROBIOLOGY [facility] [address] [place] [address], * ANTI HIV 1/2 (03/25/2008 10:58 AM MAINTAINABILITY ENGINEER) ANTI HIV 1/2 Non-reacti ve [facility] Blood specimen (specimen) BLOOD SPECIMEN / Unknown 03/25/2008 10:58 AM MAINTAINABILITY ENGINEER 03/25/2008 10:51 AM MAINTAINABILITY ENGINEER Willy Serrano MD SEND OUTS [facility] INTERNAL ZIP [address] [place] [address] from Last 3 Months or Most Recently Relevant to Health Maintenance Advance Directives * Full Code (Latest Code Status on File) Date Activated Date Inactivated Comments 03/29/2021 7:17 PM 03/30/2021 2:37 PM Question Answer Comments Code Status Discussion: Reviewed Preferences * Full Code Date Activated Date Inactivated Comments 06/10/2020 5:42 AM 06/11/2020 7:09 PM Question Answer Comments Code Status Discussion: Not Discussed * Full Code Date Activated Date Inactivated Comments 11/25/2019 4:24 PM 11/28/2019 2:10 PM Question Answer Comments Code Status Discussion: Not Discussed * Full Code Date Activated Date Inactivated Comments 05/08/2019 11:15 AM 05/08/2019 5:10 PM Question Answer Comments Code Status Discussion: Discussed * Full Code Date Activated Date Inactivated Comments 02/10/2018 9:46 PM 02/11/2018 4:44 PM Care Teams Re Recording Mixer Relationship Specialty Start Date End Date Willy Serrano MD [address] [place] [address] PCP - General Family Practice 03/30/21
--- OUTSIDE RECORDS SUMMARY | 2023-07-09 14:36 | XMS_ITS | Clinical Summary ---
Author Name Unknown Organization [facility] Address [address], [place] [address] Care Team Providers Care Urban Gardening Specialist Name Role Phone Needs Pcp, Assignment Primary Care Provider [phone] Source Comments You are receiving this document as you are listed as the primary care provider,follow-up provider, or the patient has been referred to you for consultation.This is in compliance with the Medicare and[facility] EHR Incentive Program,which states Providers who transition their patient to another setting of careor provider of care or refers their patient to another provider of care shouldprovide summary care record for each transition of care or referral. [facility] Allergies Active Allergy Reactions Criticality Noted Date Comments Eszopiclone Nausea And Vomiting 05/04/2014 Piroxicam Hives High 05/20/2020 Latex Hives High 05/20/2020 Morphine Unknown 05/20/2020 Naproxen Unknown 05/20/2020 Medications Medication Sig Dispensed Refills Start Date End Date Status acamprosate (CAMPRAL) 333 MG tablet 03/21/2020 Active divalproex (DEPAKOTE ER) 500 MG 24 hour release tablet Take 1,000 mg by mouth two times a day. 05/17/2020 Active escitalopram (LEXAPRO) 10 MG tablet TAKE ONE-HALF TABLET BY MOUTH EVERY DAY FOR 6 DAYS THEN TAKE ONE TABLET BY MOUTH EVERY DAY 05/17/2020 Active gabapentin (NEURONTIN) 600 MG tablet Take 1,200 mg by mouth three times a day. 05/17/2020 Active gemfibrozil (LOPID) 600 MG tablet 05/06/2020 Active hydrOXYzine HCl (ATARAX) 25 MG tablet Take 25 mg by mouth two times daily as needed. 04/04/2020 Active hyoscyamine (LEVBID) 0.375 MG 12 hour release tablet Take 375 mcg by mouth every 12 hours. 05/05/2020 Active metroNIDAZOLE (METROGEL) 0.75 % gel 02/24/2020 Act flor minocycline (MINOCIN) 100 MG capsule Take 100 mg by mouth two times a day. 05/17/2020 Active omeprazole (PRILOSEC) 20 MG capsule 03/06/2020 Active ondansetron (ZOFRAN-ODT) 8 MG disintegrating tablet DISSOLVE ONE TABLET ON THE TONGUE THREE TIMES A DAY NEEDED FOR NAUSEA / VOMITING 04/29/2020 Active pantoprazole (PROTONIX) 40 MG tablet Take 40 mg by mouth two times a day before meals. 05/05/2020 Active XIFAXAN 550 MG tablet 05/10/2020 Act flor risperiDONE (RISPERDAL) 1 MG tablet Take 1 mg by mouth daily. 05/17/2020 Active risperiDONE (RISPERDAL) 2 MG tablet Take 2 mg by mouth every evening. 05/17/2020 Active spironolactone (ALDACTONE) 50 MG tablet Take 50 mg by mouth daily. 05/17/2020 Active celecoxib (CELEBREX) 200 MG capsuleIndications:Rhe umatoid arthritis, involving unspecified site, unspecified whether rheumatoid factor present (HRC),Arthralgia, unspecified joint,Chronic pain syndrome Take 1 Capsule by mouth two times daily as needed for Pain. 60 Capsule 5 05/20/2020 Active Active Problems Problem Noted Date Diagnosed Date Bipolar disorder with current episode depressed 11/26/2019 Obesity (BMI 30-39.9) 05/07/2019 Hypertriglyceridemia 04/28/2019 Nicotine dependence, cigaret kristina, with other nicotine-induced disorders 05/10/2018 Alcoholic 02/10/2018 Dyssomnia 12/18/2017 Hidradenitis suppurativa 06/06/2017 Chronic post-traumatic stress disorder (PTSD) Migraine headache 09/20/2015 Tobacco use disorder 02/28/2015 Anorexia nervosa, restricting type 08/28/2013 Bipolar affective disorder, rapid cycling 2013 Generalized anxiety disorder 08/28/2013 Social anxiety disorder 08/28/2013 Controlled substance agreement signed 05/29/2013 Borderline personality disorder 11/01/2011 Raynaud's disease 01/23/2011 IUD (intrauterine device) in place 08/25/2010 Fibromyalgia 08/20/2009 GERD (gastroesophageal reflux disease) 9 Allergic rhinitis 04/16/2006 Overview: Environmental Allergies Rheumatoid arthritis 05/03/1985 Immunizations Name Administration Dates Next Due 4vHPV (Gardasil) 06/21/2006,03/08/2006 DTaP 11/03/2008 Flu Vac (3+ yrs) 01/30/2013, 2,03/06/2011,2007 Flu Vac Preserv Free (3+yrs) 02/04/2010 [id number] 02/26/2009 Influenza [id number] 02/26/2009 Influenza IIV4 (Quadrivalent ) 0.5mL (32471) 01/29/2019,12/18/2017 Influenza, Unspecified Formulation 12/31,12/18/2016,03/08/2016,2010,03/25/2008 MMR 04/02/1994 PPSV23 (Pneumovax) 12/01/2012 Td (7+ yrs) 07/21/1997 Tdap 09/01/2019,11/03/2008 Social History Tobacco Use Types Packs/Day Years Used Date Smoking Tobacco: Every Day Sex and Gender Information Value Date Recorded Sex Assigned at Not on file Gender Identity Not on file Sexual Orientation Not on file Last Filed Vital Signs Vital Sign Reading Time Taken Comments Blood Pressure 127/72 05/20/2020 10:45 AM NURSE TRANSITION Pulse 83 05/20/2020 10:45 AM NURSE TRANSITION Temperature 37.1 ??C (98.8 ??F) 05/20/2020 10:[address] Respiratory Rate - - Oxygen Saturation - - Inhaled Oxygen Concentration - - Weight 79.8 kg (176 lb) 05/20/2020 10:45 AM NURSE TRANSITION Height 167.6 cm (5' 6) 05/20/2020 10:45 AM NURSE TRANSITION Body Mass Index 28.41 05/20/2020 10:45 AM NURSE TRANSITION Plan of Treatment Health Maintenance Due Date Last Done Comments Cervical Cancer Screening Due 1982 Hep C Screening (Preventive Services) 1980 Adult Preventive Visit 01/28/2000 HepB (1) 2001 HPV Vaccine (3 - 3-dose series) 09/13/2006 06/21/2006, 03/08/2006 Pneumococcal (2 - PCV) 12/01/2013 12/01/2012 COVID-19 Vaccine (1 - 24 season) 2022 Influenza (#1) 2022 01/29/2019, 10/04/2017, 12/18/2017, Additional history exists DTaP/Tdap/Td (5 - Tdap) 08/31/2029 09/01/19 20, 11/03/2008, 11/03/2008, Additional history exists Zoster/Shingles (1 of 2) 01/28/2032 HIV Screening (Preventive Services) Completed 07/12/2021 HepA Aged Out No longer eligi ble based on patient's age to complete this topic Hib Aged Out No longer eligi ble based on patient's age to complete this topic IPV (Polio) Aged Out No longer eligi ble based on patient's age to complete this topic MCV4 Aged Out No longer eligi ble based on patient's age to complete this topic Procedures Procedure Name Priority Date/Time Associated Diagnosis Comments HIV 1/2 AG/AB 4TH GEN Routine 07/12/2021 4:17 PM CDT Acute alcoholism (HRC) from Last 3 Months or Most Recently Relevant to Health Maintenance Results * HIV 1/2 Ag/Ab 4th Generation (07/12/2021 4:17 PM CDT) HIV 1/2 Antigen/Antib jose luis (4th generation) Negative (Non Reactive) Negative (Non Reactive) 07/12/2021 10:18 PM CDT [facility] Comment:HIV-1 p24 Antigen an d HIV-1/HIV-2 Antibody not detected Blood Venipuncture / Unknown 07/12/2021 4:17 PM CDT 07/12/2021 4:17 PM CDT Aki Jarquin MD LAB_1 [facility] [address] [place] [address], [facility] from Last 3 Months or Most Recently Relevant to Health Maintenance Care Teams Urban Gardening Specialist Relationship Specialty Start Date End Date Needs Pcp, [place] [address] PCP - General 05/20/20
== END 2023-07-09 14:32 | disposition home or self-care (01) ==
LOC: NFLDREF 14:32
PROVIDERS: PCP Family Medicine; Visit Provider Family Medicine
DX: Z13.228 Encounter for screening for other metabolic disorders (principal)
CPT/HCPCS: 80048; 87086

== ENCOUNTER 2023-07-12 06:21 | Day surgery (SDC) | payer BC, SELFPAY ==
[2023-07-12] VITALS (14 sets, daily range): BP systolic 86–116; BP diastolic 47–70; PULSE 70–93; RESP 14–16; TEMP 36.3–36.6; O2SAT 94–99; BMI 24.8
--- OUTSIDE RECORDS SUMMARY | 2023-07-12 06:24 | XMS_ITS | Continuity of Care Document ---
Author Name Unknown Organization [facility] Address [address] [place] [address] Phone Care Team Providers Care Power Tool Repairer Name Role Phone Brodie Saldaña Unavailable Unavailable [...] Available - Active Procedures Procedure Date Office/Outpatient Visit,[facility], [facility] 2020 Advance Directives Directive Yes / No Effective Date File Name No Information Encounters Encounter Description Practice Location Reason(s) For Visit Diagnoses Date Provider Providers Copied on Encounter [facility], [address], [place], [place], [id number], [place] tel:[phone] [facility] No Information Devante Brodie. [facility], [address], [place], [id number], [place]. tel:[phone] Office/Outpat ient Visit,New, [facility], [address], [place], [id number], [place] tel:[phone] [facility] Low back pain Devante Brodie. [facility], [address], [place], [id number], [place]. tel:[phone] Referring Provider: Konstantin Terrell, [address], [address]. tel:[phone] Family History Family Member Type Diagnosis Age At Onset No Information Payers Payer name Insurance type Covered libertarian ID Viet ortega(s) [facility] [id number] [facility] [id number] Social History Type Description Quantity Date Captured [...]
--- OUTSIDE RECORDS SUMMARY | 2023-07-12 06:24 | XMS_ITS | Continuity of Care Document ---
Author Name Unknown Organization [facility] Address [address] [place] [address] Phone Care Team Providers Care Color Paste Mixer Name Role Phone David Herrera MD Unavailable Unavailable Advance Directives Directive Yes / No Effective Date File Name No Information Encounters Encounter Description Practice Location Reason(s) For Visit Diagnoses Date Provider Providers Copied on Encounter [facility], [address], [place], [address], [place] tel:[phone] [facility], No Information Mar-2 0-201 3 Javier Hernandez. [facility] [address], [place], [address], [place]. tel:[phone] Family History Family Member Type Diagnosis Age [...]
--- OUTSIDE RECORDS SUMMARY | 2023-07-12 06:24 | XMS_ITS | Continuity of Care Document ---
Author Name Unknown Organization [facility] Address [address] [address] [place] [address] Phone Care Team Providers Care Cycle Touring Guide Name Role Phone Jacklyn Morris CRNA Unavailable Unavailable Allergies, Adverse Reactions, Alerts Substance Reaction Status Criticality naproxen HivesHives Active No Information adhesive tape Rash Active No Information naproxen HivesHives Active No Information morphine Active No Information latex Active No Information naproxen Active No Information Medications Medication Instructions Dosage Effective Dates (start - stop) Status Comments minocycline 50 mg capsule take 2 capsule by oral route every 12 hours 100 MG - Active Xeljanz 5 mg tablet take 1 tablet by oral route 2 times every day 5 MG - Active Proair Digihaler 90 mcg/actuation aerosol powder breath act, sensor inhale 2 puff by inhalation route every 4 - 6 hours as needed 180 MCG - Active pantoprazole 40 mg tablet,delayed release take 1 tablet by oral route 2 times every day 40 MG - Active Needs office visit for further refills naltrexone 50 mg tablet take 1 tablet by oral route every day 50 MG - Active propranolol 10 mg tablet take 2 tablet by oral route 3 times every day 20 MG - Active meloxicam 15 mg tablet take 1 tablet by oral route every day 15 MG - Active Drizalma Sprinkle 60 mg capsule,delayed release take 1 capsule by oral route every day 60 MG - Active Lyrica 150 mg capsule take 1 capsule by oral route 2 times every day 150 MG - Active Lamictal 25 mg tablet take 1 tablet by oral route 2 times every day 25 MG - Active prochlorperazine maleate 10 mg tablet take 1 tablet by oral route every day as needed 10 MG - Active famotidine 20 mg tablet take 1 tablet by oral route 2 times a day as needed - Active tizanidine 4 mg capsule take 1 capsule by oral route every day as needed 4 MG No Longer Active spironolactone 100 mg tablet take 1 tablet by oral route every day 100 MG No Longer Active gemfibrozil 600 mg tablet take 1 tablet by oral route 2 times every day 30 minutes before morning and evening meal 600 MG No Longer Active Risperdal 2 mg tablet take 1 tablet by oral route 2 times every day 2 MG No Longer Active Enbrel 25 mg (1 mL) subcutaneous powder for solution inject 1 milliliter by subcutaneous route 2 times every week 72-96 hours apart No Longer Active gemfibrozil 600 mg tablet take 1 tablet by oral route 2 times every day 30 minutes before morning and evening meal 600 MG - No Longer Active Procedures Procedure Date Colonoscopy Flex; W/remov Les 24 Level Iv-surg Path Gross/micro 24 Established Level 4 Ugi Endo; W/bx 1/mx Level Iv-surg Path Gross/micro 22 Established Level 3 or 15-24 min 2019 Colonoscopy Flex; W/remov Les 20 Colonoscopy Flex; W/bx 1/mx Level Iv-surg Path Gross/micro 20 Established Level 3 or 15-24 min 2019 Ugi Endo; W/bx 1/mx Level Iv-surg Path Gross/micro 20 New Level 3 or 30-44 min Advance Directives Directive Yes / No Effective Date File Name No Information Encounters Encounter Description Practice Location Reason(s) For Visit Diagnoses Date Provider Providers Copied on Encounter [facility], [address] [address], [place], [id number], [place] tel:[phone] [facility] No Information 4 Arturo HERRERA Jacklyn. [address] [facility], [facility] [address], [place], [id number], [place]. tel:[phone] Referring Provider: Ran GRAHAM X, [address] [facility] [address], [place], [address] . tel:[phone] [facility], [address] [address], [place], [address], [place] tel:[phone] [facility] GI Symptoms or Concerns (chief complaint) Colorectal polyp detected on colonoscopyEnco unter for screening for malignant neoplasm of colonBenign neoplasm of transverse colonBenign neoplasm of sigmoid colonPersonal history of colonic polyps 4 Maldonado Tong. [address] [facility], [facility] [address], [place], [id number], [place]. tel:[phone] Referring Provider: Referral Self, USE FOR SELF REFERRALS. [facility], [address] [address], [place], [place], [id number], [place] tel:[phone] [facility] No Information 3 Curly Jiménez. [address] [facility], [facility] [address], [place], [id number], [place]. tel:[phone] [facility], [address] [address], [place], [id number], [place] tel:[phone] [facility] No Information 3 Gregory Angeles. [address] [facility], [facility] [address], [place], [id number], [place]. tel:[phone] Established Level 4 [facility], [address] [address], [place], [id number], [place] tel:[phone] [facility] GI Symptoms or Concerns (chief complaint) Acute diarrheaGERD without esophagitis 2 Gregory SOBIA Bridgette. [address] [address], [place], [place], [id number], [place]. tel:[phone] Referring Provider: Referral Self, USE FOR SELF REFERRALS. [facility], [address] [address], [place], [address], [place] tel:[phone] [facility] No Information 2 Josselyn Calloway. [address], [id number], [place]. tel:[phone] Referring Provider: Brodie Liu MD, [address] [place] [address], [place], [address] . tel:[phone] [facility], [address] [address], [place], [address], [place] tel:[phone] [facility] GI Symptoms or Concerns (chief complaint) Gastritis determined by endoscopyGastri tis, unspecified, without bleeding 2 Alexa Calloway. [address], [id number], [place]. tel:[phone] Referring Provider: Willy Serrano MD, [address] [place], [address]. tel:[phone] [facility], [address] [address], [place], [address], [place] tel:[phone] [facility] No Information 2 FerrazDeToled o DENNIS Humphries. [address] [facility], [facility] [address], [place], [place], [address], [place]. tel:[phone] [facility], [address] [address], [place], [address], [place] tel:[phone] [facility] Gastroesophagea l reflux disease, unspecified whether esophagitis present 2 Gregory PAC Bridgette. [address], [id number], [place]. tel:[phone] [facility], [address] [address], [place], [address], [place] tel:[phone] [facility] Diarrhea, unspecified May- 1 Joy Nelson. [address] [facility] [address], [place], [address], [place]. tel:[phone] [facility], [address] [address], [place], [address], [place] tel:[phone] [facility] Diarrhea, unspecified May- 1 [place] PAC Bridgette. [address], [id number], [place]. tel:[phone] [facility], [address] [address], [place], [address], [place] tel:[phone] [facility] Irritable bowel syndrome with diarrhea 1 Gregory PAC Bridgette. [address] [address], [place], [place], [id number], [place]. tel:[phone] [facility], [address] [address], [place], [address], [place] tel:[phone] [facility] Diarrhea, unspecified Jan- 0 Mark Kline. [address], [id number], [place]. tel:[phone] Established Level 3 or 15-24 min [facility], [address] [address], [place], [address], [place] tel:[phone] [facility] Comment (chief complaint) Diarrhea, unspecifiedGene ralized abdominal pain 0 [place] PAC Bridgette. [address], [id number], [place]. tel:[phone] Referring Provider: Referral Self, USE FOR SELF REFERRALS. [facility], [address] [address], [place], [id number], [place] tel:[phone] [facility] Epigastric painDiarrhea, unspecifiedColo rectal polypsDiverticu losis of colon without diverticulitisB enign neoplasm of cecumBenign neoplasm of ascending colon Sep- 0 Mark Kline. [address] [place] [address], [id number], [place]. tel:[phone] Referring Provider: Referral Self, USE FOR SELF REFERRALS. Established Level 3 or 15-24 min [facility], [address] [address], [place], [id number], [place] tel:[phone] [facility] Comment (chief complaint) Epigastric painDiarrhea, unspecified typeWeight loss Sep- 0 [place] PAC Bridgette. [address], [id number], [place]. tel:[phone] Referring Provider: Zoë Dominguez, [address] [place] [address], [address]. tel:[phone] [facility], [address] [address], [place], [address], [place] tel:[phone] [facility] Epigastric painNausea with vomiting, unspecifiedPers onal history of peptic ulcer diseaseDisease of stomach and duodenum, unspecifiedEpig astric painNausea with vomiting, unspecified Aug-2 0 Mark Kline. [address] [place] [address], [id number], [place]. tel:[phone] Referring Provider: Referral Self, USE FOR SELF REFERRALS. New Level 3 or 30-44 min [facility], [address] [address], [place], [address], [place] tel:[phone] [facility] GI Symptoms or Concerns (chief complaint) Epigastric abdominal painNon-intract able vomiting with nausea, unspecified vomiting typeHistory of peptic ulcer disease 0 [place] PAC Bridgette. [address] [facility], [facility] [address], [place], [place], [address], [place]. tel:[phone] Referring Provider: Referral Self, USE FOR SELF REFERRALS. [facility], [address] [address], [place], [place], [address], [place] tel:[phone] [facility] No Information 0 Joy Nelson. [address] [facility], [facility] [address], [place], [place], [address], [place]. tel:[phone] Family History Family Member Type Diagnosis Age At Onset Father Problem (finding) malignant neoplasm of p harynx Mother Problem (finding) Colon polyps Father Problem (finding) malignant neoplasm of t hyroid Mother Problem (finding) gallbladder disease Sister Problem (finding) Celiac disease Daughter Problem (finding) Asthma Father Problem (finding) Alcoholism Mother Problem (finding) cancer of colon Mother Problem (finding) malignant neop lasm of breast in first degree relative Father Problem (finding) Cancer, esophageal Father Problem (finding) Thyroid disorder Immunizations Vaccine Date Status Comments Afluria Qd administered Note: [facility] bi-directional interface ; Source: Other Registry tetanus toxoid, reduced diphtheria toxoid, and acellular pertussis vaccine, adsorbed administered Note: [facility] b i-directional interface ; Source: Other Registry Afluria Qd administered Note: [facility] bi-directional interface ; Source: Other Registry Fluzone Quad 6mo or older administered Note: [facility] bi-direct ional interface ; Source: Other Registry influenza virus vaccine, unspecified formulation administered Note: [facility] bi-di rectional interface ; Source: Other Registry Afluria Qd administered Note: [facility] bi-directional interface ; Source: Other Registry Fluzone Quad 6mo or older administered Note: [facility] bi-direct ional interface ; Source: Other Registry Afluria Qd administered Note: [facility] bi-directional interface ; Source: Other Registry Fluzone Quad 6mo or older administered Note: [facility] bi-direct ional interface ; Source: Other Registry Afluria Qd administered Note: [facility] bi-directional interface ; Source: Other Registry Fluzone Quad 6mo or older administered Note: [facility] bi-direct ional interface ; Source: Other Registry Pneumovax 23 administered Note: [facility] bi-d irectional interface ; Source: Other Registry Influenza, seasonal, injecta ble, preservative free administered Note: [facility] bi-direct ional interface ; Source: Other Registry Influenza, seasonal, injecta ble, preservative free administered Note: [facility] bi-direct ional interface ; Source: Other Registry Afluria Qd administered Note: [facility] bi-directional interface ; Source: Other Registry Novel [id number], all formulations administered Note: [facility] bi-direct ional interface ; Source: Other Registry tetanus toxoid, reduced diphtheria toxoid, and acellular pertussis vaccine, adsorbed administered Note: [facility] b i-directional interface ; Source: Other Registry Influenza, seasonal, injectable administe red Note: [facility] bi- directional interface ; Source: Other Registry human papilloma virus vaccin e, quadrivalent administered Note: [facility] bi-direct ional interface ; Source: Other Registry human papilloma virus vaccin e, quadrivalent administered Note: [facility] bi-direct ional interface ; Source: Other Registry measles, mumps and rubella v irus vaccine administered Note: [facility] bi-direct ional interface ; Source: Other Registry Payers Payer name Insurance type Covered alliance party ID Authoriza tion(s) [employer] Plus 2023 [place] [employer] [id number] Social History Type Description Quantity Date Captured Comments Sex Female Smoking Status No Information Chief Complaint And Reason For Visit No Information Reason For Referral Reason For Referral No Information Plan Of Treatment Date Type Action Status Referral Ordered: Ova + Parasites Appointment date/timeframe: 06/01/2020 ordered Referral Ordered: Stool Test Panel, Comprehensive Appointment date/timeframe: -today ordered Referral Ordered: Xray Abdomen; Limited (AP View Only) (KUB) Appointment date/timeframe: 01/23/2020 ordered Referral Ordered: Celiac: TTG IgA + Total IgA Appointment date/timeframe: 12/09/2019 ordered Referral Ordered: Colonoscopy Appointment date/timeframe: 12/16/2019 ordered Referral Ordered: EGD Appointment date/timeframe: 11/21/2019 ordered History Of Present Illness Encounter Date Complaint History Of Prese nt Illness GI Symptoms or Concerns GI Symptoms or Concerns Marlin mejía s a 41-year-old female who I have seen in the past for GERD who I am seeing today the virtual visit for new issues with diarrhea and ongoing GERD like symptoms. She has a history of gastric and esophageal ulcers which were diagnosed in 2017, she was drinking heavily at that time. She was treated with pantoprazole which was increased to twice daily dosing. More recently, she was having breakthrough symptoms, and was switched to omeprazole 40 mg twice daily and famotidine was recommended at bedtime. Recent EGD 06/08/2021 showed a normal esophagus. Biopsies of the stomach and duodenum were normal. She has not seen a significant improvement in her symptoms despite the omeprazole. She felt the pantoprazole actually worked better for her. Since the upper endoscopy, she did 1 month in residential inpatient treatment for alcohol. She will obtain 90 days sober next week. Despite quitting alcohol, she has ongoing reflux symptoms. She also reports onset of loose watery s GI Symptoms or Concerns Comment Ms. Plummer is a 39-year-old female with ongoing complaints of abdominal pain, change in bowel habits, and weight loss. She was seen today via televisit to which she consented. She was the only person present on the call and was in a private place.She was initially seen in November 2019, due to a history of gastric and esophageal ulcers which have been diagnosed in 2017, when she was drinking heavily at that time. Despite taking pantoprazole 40 mg once daily, she was having severe abdominal pain with nausea and occasional vomiting. ED evaluation had been unremarkable. An upper endoscopy showed some erythema in her stomach, but was otherwise unremarkable. Biopsies were consistent with reactive gastropathy, negative for H. pylori. Her pantoprazole was increased to 40 mg twice daily and we added famotidine 20 to 40 mg at bedtime or as needed. Her upper abdominal pain has improved, but she continued to have some lower abdominal cramping and changes in bowel habits. She then und Comment Marlin Plummer i s a 39-year-old female who I am seeing in followup today for upper abdominal pain, change in bowel habits, and weight loss. Our visit today is conducted via virtual visit. She verbally consented to the visit and confirms she was the only present on the call. She was in a private place.She has a history of gastric and esophageal ulcers diagnosed in 2018. She was heavily drinking at that time, which was the suspected cause of her ulcers. She has been sober for almost 1 year, and has been taking pantoprazole 40 mg once daily for some time. However, this summer, she had episodes of severe upper abdominal pain as well as nausea and occasional vomiting. She was seen in the ER on 11/14/2019, CBC, LFTs, lipase, and CT scan were unremarkable. Her pantoprazole was increased and Carafate was added. She saw an improvement in her symptoms. She then underwent an upper endoscopy on 11/21/2019, which showed some erythema in the stomach, but was otherwise unremarkable. Bio GI Symptoms or Concerns Ms. Chema edmonds is a 39-year-old female who we were asked to see in consultation by ER physicians for severe abdominal pain. Office visit was performed via virtual visit to which she verbally consented. She was the only person on the call.She has a history of gastric and esophageal ulcers which were diagnosed in 2018 after she visited the ER with severe upper abdominal pain and heartburn. She underwent an upper endoscopy with an outside physician, she believes, Dr. Delgado, and was told that her ulcers were likely due to alcohol use. She is a recovering alcoholic, and at that time had been drinking daily for about 4 years. She was told to quit drinking and was started on Protonix 40 mg daily as well as Mylanta. She quit drinking about 1 year ago and is almost 1 year sober. She continues on the Protonix 40 mg daily and overall has been feeling better. Unfortunately, she recently had a recurrence of severe upper abdominal pain over the last 2 weeks. She reports nausea and occasion Functional Status Date Functional Assessmen t No Information Instructions Date Instruction Additional Infor maximus Colon Cancer Prevention Related to Colorectal polyp detected on colonoscopy Colon Polyps Related to Color ectal polyp detected on colonoscopy 1. Stool studies to look for infection. We can send these to your [facility] office. If your insurance does not [...] me via the patient portal or call [phone] extension [phone] with questions, worsening symptoms. Related to Acute diarrhea 1. Ok to restart col ace2. Abdominal xray to assess stool burden3. Continue pantoprazole and hyoscyamine4. I will call you with results. Related to Diarrhea, unspecified Colon Polyps Related to Epiga stric pain Diverticulosis/Diverticulitis Re lated to Epigastric pain High Fiber Diet Related to Epiga stric pain Colon Cancer Prevention Related to Epigastric pain Assessments Type Assessment Date No Information Patient Care Teams Name Effective Dates (start - stop) Status Members No Information
--- OUTSIDE RECORDS SUMMARY | 2023-07-12 06:24 | XMS_ITS | Clinical Summary ---
Author Name Unknown Organization [facility] Address [address], [place] [address] Care Team Providers Care Teacher Dramatics Name Role Phone Needs Pcp, Assignment Primary Care Provider [phone] Source Comments You are receiving this document as you are listed as the primary care provider,follow-up provider, or the patient has been referred to you for consultation.This is in compliance with the Medicare and[facility] EHR Incentive Program,which states Providers who transition their patient to another setting of careor provider of care or refers their patient to another provider of care shouldprovide summary care record for each transition of care or referral. [facility] 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 DRAWER IN STITCH BONDING MACHINE Pulse 83 05/20/2020 10:45 AM DRAWER IN STITCH BONDING MACHINE Temperature 37.1 ??C (98.8 ??F) 05/20/2020 10:[address] Respiratory Rate - - Oxygen Saturation - - Inhaled Oxygen Concentration - - Weight 79.8 kg (176 lb) 05/20/2020 10:45 AM DRAWER IN STITCH BONDING MACHINE Height 167.6 cm (5' 6) 05/20/2020 10:45 AM DRAWER IN STITCH BONDING MACHINE Body Mass Index 28.41 05/20/2020 10:45 AM DRAWER IN STITCH BONDING MACHINE Plan of Treatment Health Maintenance Due Date [...] Negative (Non Reactive) 07/12/2021 10:18 PM CDT [facility] Comment:HIV-1 p24 Antigen an d HIV-1/HIV-2 Antibody not detected Blood Venipuncture / Unknown 07/12/2021 4:17 PM CDT 07/12/2021 4:17 PM CDT Aki Jarquin MD LAB_1 [facility] [address] [place] [address], [facility] from Last 3 Months or Most Recently Relevant to Health Maintenance Care Teams Teacher Dramatics Relationship Specialty Start Date End Date Needs Pcp, [place] [address] PCP - General 05/20/20
--- OUTSIDE RECORDS SUMMARY | 2023-07-12 06:24 | XMS_ITS | Clinical Summary ---
Author Name Unknown Organization [facility] Address [place], [place] [address] Care Team Providers Care Aircraft Electrician Name Role Phone Willy Serrano MD Primary [...] VACU Trice ng Alana McInt yre Delivery Location:[facility] 07/18 Term 37w 0d 2.38 kg (5 lb 4 oz) M VAGINAL VACU Trice ng 9 9 Krist opher McInt yre Delivery Location:[facility] 12/15 SAB 10w 0d SPONTANEO US Feta l Aurora se Delivery Location:[facility] Comments:D&C 10/20 36w 5d 3.12 kg (6 lb 14 oz) F Vag Trice ng 8 9 Maken zie McInt yre Delivery Location:[facility] Last Filed Vital Signs Vital Sign [...] ANTI HIV 1/2 Routine 03/25/2008 10:58 AM IMAGING SPECIALIST Supervision of Other Normal from Last 3 Months or Most Recently Relevant to Health Maintenance Results * HPV HIGH RISK (08/09/2021 12:45 PM CDT) TYPE 16 Negative Negative 08/11/2021 10:50 AM CDT [facility] TYPE 18 Negative Negative 08/11/2021 10:50 AM CDT [facility] OTHER HIGH RISK TYPES Negative Negative 08/11/2021 10:50 AM CDT [facility] Other (Cervical/Vagina l) 08/09/2021 12:45 PM CDT 08/10/2021 7:52 AM CDT Narrative [facility] - 08/11/2021 10:50 AM CDT HPV types 16, 18, 31, 33, 35, 39, 45, 51, 52, 56, 58, 59, 66 and 68 DNA were undetectable or below the pre-set threshold. Methodology: Valentino Anu 4800 HPV Test Willy Serrano MD MICROBIOLOGY [facility] [address] [place] [address], * ANTI HIV 1/2 (03/25/2008 10:58 AM IMAGING SPECIALIST) ANTI HIV 1/2 Non-reacti ve [facility] Blood specimen (specimen) BLOOD SPECIMEN / Unknown 03/25/2008 10:58 AM IMAGING SPECIALIST 03/25/2008 10:51 AM IMAGING SPECIALIST Willy Serrano MD SEND OUTS [facility] INTERNAL ZIP [address] [place] [address] from Last 3 Months or Most Recently [...] 9:46 PM 02/11/2018 4:44 PM Care Teams Aircraft Electrician Relationship Specialty Start Date End Date Willy Serrano MD [address] [place] [address] PCP - General Family Practice 03/30/21
--- OUTSIDE RECORDS SUMMARY | 2023-07-12 06:24 | XMS_ITS | Data Portability ---
Author Name Unknown Address [address] [place] [address] Phone [phone] Organization [facility], [facility] Address [address] [place] [address] Care Team Providers Care Semiautomatic Taper Operator Name Role Phone STEPHANIE CARDOSO Primary Care Provider [phone] Assessment No assessment recorded. Plan of Treatment Reminders Order Date Submit Date Provider Last Modified By Organization Details Last Modified Time Details Appointments None recorded. Lab urinalysis , dipstick 2021 022 [email or web address] [facility], [address] [place], [address], 12:41:59 Referral pelvic floor therapy referral 2021 022 [email or web address] Not available 07:38:19 Procedures None recorded. Surgeries None recorded. Imaging None recorded. Medication Orders Ditropan XL 10 mg tablet,ext ended release 2021 022 [facility], [place], [place], [address] [place], [address], 12:42:01 Patient TargetsNo targets recorded. Patient Instructions Encounter Date Encounter Id Patient Instructions Last Modified By Organization Details Last Modified Time 12/13/2021 [id number] Treatment option s for Overactive Bladder, including the care pathway & an annotated handout were reviewed with the patient today. First line OAB measures include including dietary changes, bladder training, distraction, pelvic floor exercise, pelvic floor physical therapy and fluid restriction. Limiting amounts of coffee, caffeinated tea, soda, alcohol & carbonated water, can help along with dietary changes. Decreasing fluids prior to bedtime can additional help. Second line OAB therapy includes medication management of symptoms. There are many medications that are approved for OAB a handout was given that delineates this and reviews all medications (anticholingerics --risk for dry mouth/constipatio n most commonly, or a newer [id number] medication, Mybetriq & Gemtesa). I have suggested looking into insurance coverage for medication, as some medications are not initially covered well under some plans. [email or web address] Not available 12/13/2021 12:45:50 Reason for Referral Pelvic Floor Therapy Referra l for Urge incontinence of urine Referring Physician: Noemi Friedman, Urology, Encounter Date: 12/13/2021 Results Created Date Observation Date Name Description Value Unit Range Abnormal Flag LastModifiedBy Organization Detail LastModifiedTime 12/14/19 22 12/13/2021 urina lysis , dipst ick Color-Status Yellow Not Available [facility] [address], [place], [address], 12/13/2021 12:14:41 12/14/19 22 12/13/2021 urina lysis , dipst ick Clarity-Stat us Clear Not Available [facility] [address], [place], [address], 12/13/2021 12:14:41 12/14/19 22 12/13/2021 urina lysis , dipst ick pH-Status 5.5 Not Available [facility] [address], [place], [address], 12/13/2021 12:14:41 12/14/19 22 12/13/2021 bladd er scan (PROC ) No observ ation record ed. BARCODE Not Available 12/13/2021 16:51:36 Result Notes None recorded. Procedures Surgical History Date Name Laterality Status Provider Name and Address Organization Details Recorded Time Bladder Scan completed FRANTZ Joaquin - [facility] 12/13/2021 12:14:38 9 Colonoscopy completed Earlene beck [facility] 12/13/2021 12:13:24 [facility] 12:13:34 Imaging Results Imaging Date Name Status LastModified by Organiz ation Details LastModified Time 12/13/2021 bladder scan (PROC) completed BARCODE Information not available 12/13/2021 16:51:36 Procedure Notes None recorded. Medical Equipment None Reported. Allergies Allergen ID Allergen Name Allergen Category Reaction Reaction Severity Criticality Documentation Date Start Date Code Code System Note Provider Name and Address Organization Details Recorded Time [id number] latex environme nt,medica tion Not available Not available Not available 12/13/2021 19566 91 RxNorm Earlene beck [facility] 2 12:05:25 [id number] naproxen medicatio n Not available Not available Not available 12/13/2021 7258 RxNorm Earlene beck [facility] 2 12:05:33 Medications Name Sig Start Date Stop Date Status Note LastModified by Organization Details LastModified Time quetiapine 25 mg tablet TAKE ONE TABLET BY MOUTH TWICE A DAY NEEDED 12/13 completed Not Available Not Available Not Available cyclobenzap rine 10 mg tablet TAKE ONE TABLET BY MOUTH THREE TIMES A DAY NEEDED FOR SPASM 12/13 completed Not Available Not Available Not Available clonidine HCl 0.1 mg tablet TAKE ONE TABLET BY MOUTH TWICE A DAY 12/13 completed Not Available Not Available Not Available gabapentin 600 mg tablet TAKE TWO TABLETS BY MOUTH THREE TIMES A DAY 12/13 completed Not Available Not Available Not Available quetiapine 300 mg tablet TAKE ONE TABLET BY MOUTH AT BEDTIME 12/13 completed Not Available Not Available Not Available oxybutynin chloride ER 10 mg tablet,exte nded release 24 hr TAKE ONE TABLET BY MOUTH EVERY DAY active Not Available Not Available No t Available tizanidine 4 mg tablet TAKE ONE TABLET BY MOUTH EVERY 8 HOURS NEEDED FOR SPASM 12/13 completed Not Available Not Available Not Available fluconazole 150 mg tablet TAKE ONE TABLET TODAY, MAY REPEAT SECOND DOSE 72HRS AFTER FIRST DOSE IF SYMPTOMS PERSIST 12/13 completed Not Available Not Available Not Available tolterodine ER 4 mg capsule,ext ended release 24 hr TAKE ONE CAPSULE BY MOUTH EVERY DAY 12/13 completed Not Available Not Available Not Available prazosin 1 mg capsule TAKE ONE CAPSULE BY MOUTH TWICE A DAY 12/13 completed Not Available Not Available Not Available meloxicam 15 mg tablet TAKE ONE TABLET BY MOUTH EVERY DAY active Not Available Not Available No t Available naltrexone 50 mg tablet TAKE ONE TABLET BY MOUTH EVERY DAY 12/13 completed Not Available Not Available Not Available metronidazo le 0.75 % (37.5 mg/5 gram) vaginal gel INSERT ONE APPLICATO RFUL VAGINALLY EVERY DAY TWICE WEEKLY. active Not Available Not Available No t Available spironolact one 100 mg tablet TAKE ONE TABLET BY MOUTH EVERY DAY 12/13 completed Not Available Not Available Not Available quetiapine 200 mg tablet TAKE ONE-HALF TABLET BY MOUTH AT BEDTIME NEEDED 12/13 completed Not Available Not Available Not Available hydroxyzine pamoate 50 mg capsule TAKE TWO CAPSULES BY MOUTH AT BEDTIME NEEDED FOR SLEEP 12/13 completed Not Available Not Available Not Available risperidone 0.25 mg tablet TAKE ONE TABLET BY MOUTH TWICE A DAY NEEDED active Not Available Not Available No t Available metronidazo le 500 mg tablet TAKE ONE TABLET BY MOUTH TWICE A DAY 12/13 completed Not Available Not Available Not Available hydroxyzine HCl 50 mg tablet TAKE 1-2 TABLETS BY MOUTH AT BEDTIME NEEDED 12/13 completed Not Available Not Available Not Available prochlorper azine maleate 10 mg tablet TAKE ONE TABLET BY MOUTH THREE TIMES A DAY NEEDED FOR NAUSEA / VOMITING active Not Available Not Available No t Available omeprazole 40 mg capsule,del ayed release TAKE ONE CAPSULE BY MOUTH TWICE A DAY 30 MINUTES BEFORE MORNING AND EVENING MEALS 12/13 completed Not Available Not Available Not Available risperidone 3 mg tablet TAKE ONE TABLET BY MOUTH EVERY DAY active Not Available Not Available No t Available ondansetron 8 mg disintegrat ing tablet DISSOLVE ONE TABLET BY MOUTH THREE TIMES A DAY NEEDED FOR NAUSEA AND VOMITTING active Not Available Not Available No t Available lamotrigine 25 mg tablet TAKE THREE TABLETS BY MOUTH EVERY DAY 12/13 completed Not Available Not Available Not Available risperidone 2 mg tablet TAKE ONE TABLET BY MOUTH EVERY EVENING 12/13 completed Not Available Not Available Not Available propranolol 10 mg tablet TAKE ONE TABLET BY MOUTH TWICE A DAY 12/13 completed Not Available Not Available Not Available hyoscyamine ER 0.375 mg tablet,exte nded release,12 hr TAKE ONE TABLET BY MOUTH EVERY 12 HOURS 12/13 completed Not Available Not Available Not Available gemfibrozil 600 mg tablet TAKE ONE TABLET BY MOUTH AT BEDTIME active Not Available Not Available No t Available pantoprazol e 40 mg tablet,nehemiah yed release TAKE ONE TABLET BY MOUTH TWICE A DAY 12/13 completed Not Available Not Available Not Available divalproex ER 500 mg tablet,exte nded release 24 hr TAKE ONE TABLET BY MOUTH EVERY DAY IN THE MORNING active Not Available Not Available No t Available lorazepam 1 mg tablet TAKE ONE TABLET BY MOUTH THREE TIMES A DAY NEEDED 12/13 completed Not Available Not Available Not Available ibuprofen 600 mg tablet 12/13 completed Not Available Not Available Not Available mirtazapine 15 mg disintegrat ing tablet DISSOLVE ONE TABLET BY MOUTH AT BEDTIME 12/13 completed Not Available Not Available Not Available risperidone 1 mg tablet TAKE ONE TABLET BY MOUTH EVERY EVENING active Not Available Not Available No t Available metronidazo le 0.75 % topical gel APPLY TO AFFECTED AREA(S) TWO TIMES A DAY active Not Available Not Available No t Available cholecalcif lalito (vitamin D3) 125 mcg (5,000 unit) capsule TAKE ONE CAPSULE BY MOUTH EVERY DAY active Not Available Not Available No t Available lamotrigine 100 mg tablet TAKE ONE TABLET BY MOUTH EVERY DAY active Not Available Not Available No t Available risperidone 0.5 mg tablet TAKE 1/2 TABLET BY MOUTH TWO TIMES A DAY NEEDED 12/13 completed Not Available Not Available Not Available oxycodone 5 mg tablet 12/13 completed Not Available Not Available Not Available duloxetine 30 mg capsule,del ayed release TAKE ONE CAPSULE BY MOUTH EVERY MORNING WITH 60 MG CAPSULE FOR TOTAL DAILY DOSE OF 90MG EVERY MORNING active Not Available Not Available No t Available duloxetine 60 mg capsule,del ayed release TAKE ONE CAPSULE BY MOUTH EVERY DAY active Not Available Not Available No t Available Enbrel 50 mg/mL (1 mL) subcutaneou s syringe active Not Available Not Available No t Available pregabalin 75 mg capsule TAKE ONE CAPSULE BY MOUTH THREE TIMES A DAY 12/13 completed Not Available Not Available Not Available pregabalin 100 mg capsule TAKE ONE CAPSULE BY MOUTH THREE TIMES A DAY 12/13 completed Not Available Not Available Not Available pregabalin 150 mg capsule TAKE ONE CAPSULE BY MOUTH TWICE A DAY 12/13 completed Not Available Not Available Not Available pregabalin 225 mg capsule TAKE ONE CAPSULE BY MOUTH TWICE A DAY active Not Available Not Available No t Available pregabalin 300 mg capsule TAKE ONE CAPSULE BY MOUTH TWICE A DAY 12/13 completed Not Available Not Available Not Available quetiapine 50 mg tablet TAKE ONE TABLET BY MOUTH THREE TIMES A DAY NEEDED 12/13 completed Not Available Not Available Not Available Tri-Lo-Spri ntec 0.18 mg/0.215 mg/0.25 mg-25 mcg tablet TAKE ONE TABLET BY MOUTH EVERY DAY 12/13 completed Not Available Not Available Not Available Latuda 20 mg tablet TAKE ONE TABLET BY MOUTH EVERY DAY 12/13 completed Not Available Not Available Not Available Vitals Date Recorded Body height Body mass index (BMI) Body weight Provider Name and Address Organization Details Last Updated DateTime 12/13/2021 167.64 cm 30.7 kg/m2 66640.55 g Earlene beck [facility] 12/13/2021 12:05:12 Social History Question Answer Notes LastModified by Organizat ion Details LastModified Time Tobacco Smoking Status Current Every Day Smoker Earlene beck [facility] 12/13/2021 12:13:10 What Was The Date Of Your Most Recent Tobacco Screening? 12/13/2021 Information not available 12/13/2021 Has Tobacco Cessation Counseling Been Provided? Yes Information not available 12/13/2021 On What Date Was Tobacco Cessation Counseling Provided? 12/13/2021 Information not available 12/13/2021 Sex: Female Functional Status None recorded. Mental Status None recorded. Family History Relationship Description Onset Age of this Age Resolved Age Notes Unspecified Relation Family history of breast cancer Unspecified Relation Family history of cancer of colon Unspecified Relation Family history of cancer Unspecified Relation Family history of Hypertension Unspecified Relation Family history of renal stone Medical History Condition Response Sexually Transmitted Infection N Diabetes N Other N Bleeding Disorder N High Blood Pressure N Kidney Stones N High Cholesterol Y GERD/Acid Reflux Y Heart Disease N Cancer N Lung Disease N Depression Y Gynecological HistoryNo gynecological history recorded. Obstetrics History GPAL:G 0 P 0 0 0 0 Past Encounters Encounter ID Performer Location Encounter Start Date Encounter Closed Date Diagnosis/Indication Diagnosis SNOMED-CT Code [id number] DENNIS GRIFFIN [facility] [address] [place] [address] 12/13/2021 11:37:46 12/16/2021 14:14:27 Female stress incontinence [id number] Urge incon tinence of urine [id number] Health Concerns Section Related Observation LastModified by Organization Detai ls LastModified Time None Recorded Concern Status LastModified by Organization Details LastModified Time None Recorded Advance Directives Directive None Recorded Payers Encounter Date Sequence Insurance Name Policy Number Policy Caldwell Covered Member ID Caldwell Member ID Guarantor Name 12/13/2021 1 [id number] Marlin Plummer [id number] Mralin Plummer 12/13/2021 2 [employer] - DOS PRIOR TO 2022 (MEDICAID REPLACEMENT - HMO) [id number] Marlin Plummer [id number] Marlin Plummer Notes Date Note Type Note Provider Name and Address Organization Details Recorded Time 12/13/2021 text/html HPI Notes: 41yo female here today for evaluation of urinary incontinence (primarily urge but also with exercise), also with feelings of incomplete bladder emptying and occasional spasm sensation. Has gotten worse over the past year. Denies any gross hematuria, no UTIs, no dysuria, no hx of nephrolithiasis. She recalls having tried a medication in the past (unsure which one) but noted dry mouth. Frequency 12x per day, every hour nocturia 4-5x persistent leakage throughout the day-- using 5 pads per day Medical hx: IBS, diverticulitis Surgical hx: hernia repair, vaginal deliveries x3 Family hx: breast cancer, kidney stones Social hx: current daily smoker UA negative PVR 59cc Exam with grade 1 cystocele, positive stress test DENNIS GRIFFIN [address], [place], [address], [facility] 12/13/2021 12:48:04 OBGyn Episode No OBEpisode recorded.
[2023-07-12] MEDS: ACETAMINOPHEN 500 MG TABLET 1000 MG PO (06:45)
[2023-07-12] MEDS: OXYCODONE (CR) 10 MG TAB.ER.12H PO (06:45)
[2023-07-12 06:46] LABS: Ur HCG Qualitative* Negative (Negative)
[2023-07-12] MEDS: LACTATED RINGERS 1000 ML 1,000 ML 100 ML IV (06:55)
[2023-07-12] MEDS: SODIUM CHLORIDE 0.9 % (FLUSH) 10 ML SYRINGE IVF (06:55)
[2023-07-12] MEDS: fentaNYL 100 MCG/2 ML inj IVP (08:01)
[2023-07-12] MEDS: MIDAZOLAM HCL 1 MG/ML inj IVP (08:01)
--- NOTE | 2023-07-12 08:11 | SUR.PREOP ---
TIME?OUT:?0800 PT/RN/MDA?VERIFICATION?OF?SURGICAL?SITE,?PROCEDURE,?AND?CONSENT OBTAINED?PRIOR?TO?INVASIVE?PROCEDURE. all in agreement.
[2023-07-12] MEDS: CEFAZOLIN 2 GM INJ IVP (08:25)
[2023-07-12] MEDS: EPINEPHrine 1 MG in SODIUM CHLORIDE IRRIG SOLUTION 3,000 ML 3001 MG IRRIGATION ×2 (08:36→08:45)
--- NOTE | 2023-07-12 09:07 | W.ANESCHARGE ---
Anesthesia Charges Start Date/Time Anesthesia Start Date: 07/12/23 Anesthesia Start Time: 08:08 Stop Date/Time Anesthesia Stop Date: 07/12/23 Anesthesia Stop Time: 09:25
--- NOTE | 2023-07-12 09:09 | P.ORPRC_ITS ---
Procedure Note Date of procedure: 07/12/23 Procedure: PREOPERATIVE DIAGNOSIS: Left shoulder subacromial bursitis, AC joint arthrosis POSTOPERATIVE DIAGNOSIS: Left shoulder subacromial bursitis, AC joint arthrosis NAME OF OPERATION: Left shoulder arthroscopic subacromial decompression, distal clavicle excision SURGEON: Abebe Tse MD [facility] [place] APPRENTICE: Jia Xiong PA-C ANESTHESIA: Supraclavicular block plus general endotracheal ESTIMATED BLOOD LOSS: 5 mL COMPLICATIONS: None SPECIMENS: None DRAINS: None PREOPERATIVE ANTIBIOTICS: Ancef 1 g INDICATIONS: The patient is a 43-year-old with a history of left shoulder pain secondary to the above diagnoses. Despite appropriate non operative management, they continue to have symptoms. Operative intervention was recommended. The risks, benefits and expected outcomes were discussed in detail. These included but were not limited to: Infection, bleeding, injury to blood vessel or nerve, venous thromboembolism. All questions were answered to their satisfaction. PROCEDURE: A supraclavicular block was placed by Anesthesia. General anesthesia was administered. The patient was placed in the high beach chair position. The right shoulder was prepped and draped in the usual sterile fashion. The glenohumeral joint was infiltrated with 20 mL of normal saline with epinephrine. The posterior portal was established, the arthroscope was introduced. The anterior portal was established, Diagnostic arthroscopy was performed with findings as follows: The biceps and biceps anchor are intact. The anterior, posterior and superior labrum are normal. Articular surfaces on the humeral head and glenoid are normal. There are no loose bodies. The undersurface of the rotator cuff is intact. The arthroscope was placed in the subacromial space, the lateral portal was established. The Arthrex Staun[place] was used to dissect the acromion free. The CA ligament was recessed off the anterior acromion, the AC joint was exposed. The acromioplasty was performed with the bur in the posterior portal. The bur was then placed in the lateral portal and the lateral and anterior aspect of the acromion were resected. The undersurface of the distal clavicle was resected through the lateral portal. Finally, the bur was placed in the anterior portal and the remainder of the distal clavicle was resected for a total of 10 mm. The bone of the distal clavicle appears avascular. The subacromial/subdeltoid bursa was aggressively debrided. The bursal surface of the rotator cuff is intact without high-grade partial-thickness or full- thickness tearing. Arthroscopic instruments removed. The portal sites were closed with a 3-0 Monocryl in a subcuticular fashion. A dry dressing and sling were applied. Sponge and needle counts were correct x2. The patient tolerated the procedure well. There were no apparent complications. They were carefully transferred to the hospital bed and taken to the postanesthesia care unit in satisfactory condition. PLAN: The patient will be discharged to home. Use of the arm as tolerates, without restriction. DC sling when comfortable. They will follow up in the office next week for a wound check and an AP and transscapular Y-view of the shoulder prior to being seen.
[2023-07-12] MEDS: OxyCODONE/APAP 5-325 TABLET PO (10:05)
--- NOTE | 2023-07-12 10:41 | W.PM.NB ---
Nerve Block Nerve Block Time Seen by Provider: 08:06 Date Seen: 07/12/23 Type of block requested by surgeon for post-operative analgesia: supraclavicular Side: left Time out performed: Yes Verification of patient name: Yes Verification of date of : Yes Site marking: site marked Name of person performing procedure: Arturo Continuous monitoring Was continuous monitoring of O2 sat, B/P, vehicle monitor technician, recorded every 15 minutes?: Yes Procedure Checklist: sterile prep, needles and gloves Ultrasound guided. Images saved: Yes Medications given in 5ml increments after negative aspiration: Ropivicaine %: 0.5 mL: 20 Needle gauge: 22 Decadron (mg): 10 Precedex (mcg): 25 Patient tolerated procedure well: Yes Block Charges Block Charge (with Pro Fee): Brachial Plexus Use of Ultrasound Machine for Block: Yes- US Guidance/pain block
--- NOTE | 2023-07-12 10:41 | W.ANESCHARGE ---
Anesthesia Charges Start Date/Time Anesthesia Start Date: 07/12/23 Anesthesia Start Time: 08:08 Stop Date/Time Anesthesia Stop Date: 07/12/23 Anesthesia Stop Time: 09:25
== END 2023-07-12 11:14 | disposition home or self-care (01) ==
PROVIDERS: Anesthesiology; PCP Family Medicine; Visit Provider Orthopaedic Surgery
PROC: (CPT 29805; principal; 2023-07-12 08:00)
DX: M75.52 Bursitis of left shoulder (principal); M19.012 Primary osteoarthritis, left shoulder; G89.18 Other acute postprocedural pain
CPT/HCPCS: 29826; 29824; 01630; 64415; 76942; 81025; A9270; J0171; J0330; J0690; J1100; J2250; J2371; J2405; J2704; J2795; J3010; J7120

== ENCOUNTER 2023-07-26 10:26 | Outpatient (CLI) | payer BC, SELFPAY ==
--- OUTSIDE RECORDS SUMMARY | 2023-07-26 10:30 | XMS_ITS | Clinical Summary ---
Author Name Unknown Organization [facility] Address [place], [place] [address] Care Team Providers Care Clamp Jig Assembler Name Role Phone Willy Serrano MD Primary [...] needed for Nausea/Vomiting. 8 Tablet 02/22/2022 Active oxyCODONE (ROXICODONE) 5 mg immediate release tabletIndications:[place] of left shoulder Take 1 Tablet (5 mg) by mouth every 6 hours if needed for Pain. 3 Tablet 07/22/2023 Active Active Problems Problem Noted Date Diagnosed [...] disorder, not elsewhere classified 04/16/19 07 02/19/2010 Encounters Date Type Department Care Team Description 07/22/2023 8:49 AM CDT - 07/22/2023 11:28 AM CDT Emergency [facility] [address] [place] [address] Briseida Larsen, Acute pain of left shoulder (Primary Dx) Discharge Disposition: Home Self Care 07/22/2023 Travel from Last 3 Months Immunizations Name Administration Dates Next Due Human [...] VACU Trice ng Alana McInt yre Delivery Location:[facility] 07/18 Term 37w 0d 2.38 kg (5 lb 4 oz) M VAGINAL VACU Trice ng 9 9 Krist opher McInt yre Delivery Location:[facility] 12/15 SAB 10w 0d SPONTANEO US Feta l Aurora se Delivery Location:[facility] Comments:D&C 10/20 36w 5d 3.12 kg (6 lb 14 oz) F Vag Trice ng 8 9 Maken zie McInt yre Delivery Location:[facility] Last Filed Vital Signs Vital Sign Reading Time Taken Comments Blood Pressure 115/65 07/22/2023 10:42 AM CDT Pulse 88 07/22/2023 10:42 AM CDT Temperature 36.8 ??C (98.3 ??F) 07/22/2023 8:57 AM CD T Respiratory Rate 16 07/22/2023 8:57 AM CDT Oxygen Saturation 100% 07/22/2023 10:42 AM CDT Inhaled Oxygen Concentration - - Weight 68 kg (150 lb) 07/22/2023 8:51 AM CDT Height 167.6 cm (5' 6) 07/22/2023 8:51 AM CDT Body Mass Index 24.21 07/22/2023 8:51 AM CDT Plan of Treatment Health Maintenance Due Date Last Done Comments Hepatitis C screening for age 18-79 01/28/2000 BMI (ht and wt on same day) for age 18+ 06/30/2016 07/01/2015 Tetanus booster 11/03/2018 11/03/2008, 07/21/1997 Depression screening for age 12+ 06/09/2021 06/09/2020, 11/24/2019, 07/01/2015, Additional history exists COVID-19 vaccine series (2022- season) 2022 Influenza for age 9-49 12/02/2023 8, 01/30/2013, 12/25/2011, Additional history exists Pap test for age 21-65 08/09/2024 2, 08/09/2021, 08/04/2013, Additional history exists HIV for age 15-65 Completed 03/25/2008, 12/18/2006 Tdap Completed 11/03/2008 Pneumococcal series for age 6-64 Aged Out No longer eligible based on patient's age to complete this topic Procedures Procedure Name Priority Date/Time Associated Diagnosis Comments XR SHOULDER 3 VIEWS LEFT STAT 07/22/2023 9:54 AM CDT CBC W PLT NO DIFF STAT 07/22/2023 9:4 1 AM CDT HPV THIN PREP Routine 08/09/2021 12:45 PM CDT ANTI HIV 1/2 Routine 03/25/2008 10:58 AM LAY MIDWIFE Supervision of Other Normal from Last 3 Months or Most Recently Relevant to Health Maintenance Results * XR SHOULDER 3 VIEWS LEFT (07/22/2023 9:54 AM CDT) Anatomical Region Laterality Modality SHOULDERS, SHOULDER L Digital Ra diography 07/22/2023 10:1 7 AM CDT Narrative 07/22/2023 10:17 AM CDT For Patients: ??As a result of the Cures Act, medical imaging exams and procedure reports are released immediately into your electronic medical record. ??You may view this report before your referring provider. ??If you have questions, please contact your health care provider. INDICATION: Left shoulder pain. FINDINGS: Three views of the left shoulder obtained. There is a small linear calcification off the acromion, question a chip fracture age indeterminate. There is the appearance of resection of the distal aspect of the clavicle. There is no other definite fracture seen or dislocation. Dictated by Raymond Pabon MD @ 07/22/2023 10:17:21 AM (Electronically Signed) Procedure Note Raymond Pabon MD - 07/22/2023 For Patients: As a result of the Century Cures Act, medical imagingexams and procedure reports are released immediately into your electronicmedical record. You may view this report before your referring provider.If you have questions, please contact your health care provider. INDICATION: Left shoulder pain. FINDINGS: Three views of the left shoulder obtained. There is a small linearcalcification off the acromion, question a chip fracture ageindeterminate. There is the appearance of resection of the distal aspectof the clavicle. There is no other definite fracture seen ordislocation. Dictated by Raymond Pabon MD @ 07/22/2023 10:17:21 AM (Electronically Signed) Briseida Montes Carlos Eduardo Plutjessica DO GENER AL IMAGING * CBC W PLT NO DIFF (07/22/2023 9:41 AM CDT) WHITE BLOOD COUNT 4.9 4.5 - 11.0 thou/cu mm 07/22/2023 9:48 AM [facility] RED BLOOD COUNT 4.34 4.00 - 5.20 mil/cu mm 07/22/2023 9:48 AM [facility] HEMOGLOBIN 13.0 12.0 - 16.0 g/dL 07/22/2023 9:48 AM [facility] HEMATOCRIT 38.5 33.0 - 51.0 % 07/22/2023 9:48 AM [facility] MCV 89 80 - 100 fL 07/22/2023 9:48 AM [facility] MCH 30.0 26.0 - 34.0 pg 07/22/2023 9:48 AM [facility] MCHC 33.8 32.0 - 36.0 g/dL 07/22/2023 9:48 AM [facility] RDW 13.5 11.5 - 15.5 % 07/22/2023 9:48 AM [facility] PLATELET COUNT 264 140 - 440 thou/cu mm 07/22/2023 9:48 AM [facility] MPV 9.9 6.5 - 11.0 fL 07/22/2023 9:48 AM CDT [facility] Blood BLOOD SPECIMEN / Unknown Venipuncture / Unknown 07/22/2023 9:41 AM CDT 07/22/2023 9:44 AM CDT Briseida Styels DO HEMAT OLOGY [facility] [address] [place] [address] * HPV HIGH RISK (08/09/2021 12:45 PM CDT) TYPE 16 Negative Negative 08/11/2021 10:50 AM CDT [facility] TYPE 18 Negative Negative 08/11/2021 10:50 AM CDT [facility] OTHER HIGH RISK TYPES Negative Negative 08/11/2021 10:50 AM CDT [facility] Other (Cervical/Vagina l) 08/09/2021 12:45 PM CDT 08/10/2021 7:52 AM CDT Narrative [facility] - 08/11/2021 10:50 AM CDT HPV types 16, 18, 31, 33, 35, 39, 45, 51, 52, 56, 58, 59, 66 and 68 DNA were undetectable or below the pre-set threshold. Methodology: Valentino Anu 4800 HPV Test Willy Serrano MD MICROBIOLOGY [facility] [address] [place] [address], * ANTI HIV 1/2 (03/25/2008 10:58 AM LAY MIDWIFE) ANTI HIV 1/2 Non-reacti ve [facility] Blood specimen (specimen) BLOOD SPECIMEN / Unknown 03/25/2008 10:58 AM LAY MIDWIFE 03/25/2008 10:51 AM LAY MIDWIFE Willy Serrano MD SEND OUTS [facility] INTERNAL ZIP [address] [address] from Last 3 Months or Most Recently [...] 9:46 PM 02/11/2018 4:44 PM Care Teams Clamp Jig Assembler Relationship Specialty Start Date End Date Willy Serrano MD [address] [place] [address] PCP - General Family Practice 03/30/21
--- OUTSIDE RECORDS SUMMARY | 2023-07-26 10:30 | XMS_ITS | Clinical Summary ---
Author Name Unknown Organization [facility] Address [address] [address] Care Team Providers Care Ditching Machine Operating Engineer Name Role Phone Needs Pcp, Assignment Primary Care Provider [phone] Source Comments You are receiving this document as you are listed as the primary care provider,follow-up provider, or the patient has been referred to you for consultation.This is in compliance with the Medicare and[facility] EHR Incentive Program,which states Providers who transition their patient to another setting of careor provider of care or refers their patient to another provider of care shouldprovide summary care record for each transition of care or referral. [facility] Allergies Active Allergy Reactions Criticality Noted Date [...] 2,03/06/2011,2007 Flu Vac Preserv Free (3+yrs) 02/04/2010 [id number] 02/26/2009 Influenza [id number] 02/26/2009 Influenza IIV4 (Quadrivalent ) 0.5mL (47394) 01/29/2019,12/18/2017 Influenza, Unspecified Formulation 12/31,12/18/2016,03/08/2016,2010,03/25/2008 MMR 04/02/1994 [...] Comments Blood Pressure 127/72 05/20/2020 10:45 AM SHEET ROCK SANDER Pulse 83 05/20/2020 10:45 AM SHEET ROCK SANDER Temperature 37.1 ??C (98.8 ??F) 05/20/2020 10:[address] Respiratory Rate - - Oxygen Saturation - - Inhaled Oxygen Concentration - - Weight 79.8 kg (176 lb) 05/20/2020 10:45 AM SHEET ROCK SANDER Height 167.6 cm (5' 6) 05/20/2020 10:45 AM SHEET ROCK SANDER Body Mass Index 28.41 05/20/2020 10:45 AM SHEET ROCK SANDER Plan of Treatment Health Maintenance Due Date [...] Negative (Non Reactive) 07/12/2021 10:18 PM CDT [facility] Comment:HIV-1 p24 Antigen an d HIV-1/HIV-2 Antibody not detected Blood Venipuncture / Unknown 07/12/2021 4:17 PM CDT 07/12/2021 4:17 PM CDT Aki Jarquin MD LAB_1 [facility] [address] [place] [address], [facility] from Last 3 Months or Most Recently Relevant to Health Maintenance Care Teams Ditching Machine Operating Engineer Relationship Specialty Start Date End Date Needs Pcp, [place] [address] PCP - General 05/20/20
--- OUTSIDE RECORDS SUMMARY | 2023-07-26 10:30 | XMS_ITS | Data Portability ---
Author Name Unknown Address [address] [place] [address] Phone [phone] Organization [facility] Address [address] [place] [address] Care Team Providers Care Housekeeper Caregiver Name Role Phone STEPHANIE CARDOSO Primary Care Provider [phone] Assessment No assessment recorded. Plan of Treatment Reminders Order Date Submit Date Provider Last Modified By Organization Details Last Modified Time Details Appointments None recorded. Lab urinalysis , dipstick 2021 022 [email or web address] [email or web address] [facility], [address] [place], [address], 12:41:59 Referral pelvic floor therapy referral 2021 022 [email or web address] Not available 07:38:19 Procedures None recorded. Surgeries None recorded. Imaging None recorded. Medication Orders Ditropan XL 10 mg tablet,ext ended release 2021 022 [facility], [place], [place], [address] [place], [address], 12:42:01 Patient TargetsNo targets recorded. Patient Instructions Encounter Date Encounter Id Patient Instructions Last Modified By Organization Details Last Modified Time 12/13/2021 [id number] Treatment option s for Overactive Bladder, including [...] mouth/constipatio n most commonly, or a newer [id number]-[id number] medication, Mybetriq & Gemtesa). I have suggested looking into insurance coverage for medication, as some medications are not initially covered well under some plans. [email or web address] Not available 12/13/2021 12:45:50 Reason for Referral Pelvic Floor Therapy Referra l for Urge incontinence of urine Referring Physician: Noemi Friedman, Urology, Encounter Date: 12/13/2021 Results Created Date Observation Date Name Description Value Unit Range Abnormal Flag LastModifiedBy Organization Detail LastModifiedTime 12/14/19 22 12/13/2021 urina lysis , dipst ick Color-Status Yellow Not Available [facility] [address] [place], [address], 12/13/2021 12:14:41 12/14/19 22 12/13/2021 urina lysis , dipst ick Clarity-Stat us Clear Not Available [facility] [address] [place], [address], 12/13/2021 12:14:41 12/14/19 22 12/13/2021 urina lysis , dipst ick pH-Status 5.5 Not Available [facility] [address] [place], [address], 12/13/2021 12:14:41 12/14/19 22 12/13/2021 bladd er scan (PROC ) No observ ation record ed. BARCODE Not Available 12/13/2021 16:51:36 Result Notes None recorded. Procedures Surgical History Date Name Laterality Status Provider Name and Address Organization Details Recorded Time Bladder Scan completed FRANTZ Joaquin - [facility] 12/13/2021 12:14:38 9 Colonoscopy completed Earlene beck [facility] 12/13/2021 12:13:24 [facility]13[facility] 12:13:34 Imaging Results Imaging Date Name Status LastModified by Organiz ation Details LastModified Time 12/13/2021 bladder scan (PROC) completed BARCODE Information not available 12/13/2021 16:51:36 Procedure Notes None recorded. Medical Equipment None Reported. Allergies Allergen ID Allergen Name Allergen Category Reaction Reaction Severity Criticality Documentation Date Start Date Code Code System Note Provider Name and Address Organization Details Recorded Time 129500 latex environme nt,medica tion Not available Not available Not available 12/13/2021 15168 91 RxNorm Earlene beck [facility] 2 12:05:25 688828 naproxen medicatio n Not available Not available Not available 12/13/2021 7258 RxNorm Earlene beck [facility] 2 12:05:33 Medications Name Sig Start [...] Updated DateTime 12/13/2021 167.64 cm 30.7 kg/m2 18915.55 g Earlene beck [facility] 12/13/2021 12:05:12 Social History Question Answer Notes LastModified by Organizat ion Details LastModified Time Tobacco Smoking Status Current Every Day Smoker Earlene beck [facility] 12/13/2021 12:13:10 What Was The Date [...] of renal stone Medical History Condition Response Other N High Blood Pressure N Kidney Stones N Lung Disease N Depression Y GERD/Acid Reflux Y Sexually Transmitted Infection N Cancer N High Cholesterol Y Diabetes N Bleeding Disorder N Heart Disease N Gynecological HistoryNo gynecological history recorded. Obstetrics History GPAL:G 0 P 0 0 0 0 Past Encounters Encounter ID Performer Location Encounter Start Date Encounter Closed Date Diagnosis/Indication Diagnosis SNOMED-CT Code [id number] DENNIS GRIFFIN [facility] [address] [place] [id number] 12/13/2021 11:37:46 12/16/2021 14:14:27 Female stress incontinence [id number] Urge incon tinence of urine [id number] Health Concerns Section Related Observation LastModified by Organization Detai ls LastModified Time None Recorded Concern Status LastModified by Organization Details LastModified Time None Recorded Advance Directives Directive None Recorded Payers Encounter Date Sequence Insurance Name Policy Number Policy Caldwell Covered Member ID Caldwell Member ID Guarantor Name 12/13/2021 1 [place] [id number] Marlin Plummer [id number] Marlin Plummer 12/13/2021 2 [employer] - DOS PRIOR TO 2022 (MEDICAID REPLACEMENT - HMO) [id number] Marlin Plummer [id number] Marlin Plummer Notes Date Note Type Note [...] cystocele, positive stress test DENNIS GRIFFIN [address], [place], [address], [facility] 12/13/2021 12:48:04 OBGyn Episode No OBEpisode recorded.
--- NOTE | 2023-07-26 10:45 | US_ITS ---
Patient: ESPERANZA SUNG Facility:?[facility] Patient ID:?[id number] Site Patient ID:?[id number]. Site :?1982 Study:?US-Extremity Left UEV LT-07/26/2023 11:23:54 AM Ordering Physician:?EDGAR SÁNCHEZ Final Report: INDICATION: Left arm pain post surgery 2 weeks ago TECHNIQUE: Parker-scale two-dimensional ultrasound without and with compression as well as color-flow and spectral Doppler of the left upper extremity veins. COMPARISON: None. FINDINGS: Normal flow is demonstrated in the subclavian vein. Normal compressibility of and flow within the internal jugular, axillary, brachial, radial, ulnar, basilic and cephalic veins is demonstrated. No thrombus is evident. IMPRESSION: Negative left upper extremity venous Doppler study. Dictated by Raymond Mac MD @ 07/27/2023 9:52:25 AM Signed by:?Raymond Mac MD @07/27/2023 9:52:25 AM (Electronic Signature)
== END 2023-07-26 10:27 | disposition home or self-care (01) ==
LOC: US 10:26
PROVIDERS: PCP Family Medicine; Visit Provider Physician Assistant
DX: M79.602 Pain in left arm (principal); Z98.890 Other specified postprocedural states
CPT/HCPCS: 93971

== ENCOUNTER 2023-08-28 11:46 | Outpatient (CLI) | payer BC, SELFPAY ==
--- OUTSIDE RECORDS SUMMARY | 2023-08-28 11:49 | XMS_ITS | Clinical Summary ---
Author Organization [facility] Address [place], [place] [address] Care Team Providers Care Dairy Hand Name Role Phone Willy Serrano MD Primary [...] time. Active pantoprazole (PROTONIX) 40 mg delayed-release tabletIndications: Gastro-esophageal reflux disease without esophagitis Take 1 tablet by mouth 2 times daily before meals. 90 tablet 3 0 Active metroNIDAZOLE 0.75% vaginal (METROGEL) 0.75 % vaginal gel Insert 1 Applicatorful into the vagina once daily if needed. Active cloNIDine HCL (CATAPRES) 0.1 mg tablet Take 0.2 mg by mouth once daily in the evening. Active diphenoxylate-atro pine, 2.5-0.025 mg, (LOMOTIL) 2.5-0.025 mg tablet Take 5 mg by mouth 4 times daily if needed for Diarrhea. Active hyoscyamine (LEVBID) 0.375 mg Controlled-Release tablet Take 0.375 mg by mouth every 12 hours. Active minocycline (MINOCIN) 100 mg capsuleIndications :cystic acne Take 100 mg by mouth once [...] Active ondansetron (ZOFRAN ODT) 4 mg disintegrating tabletIndications: Medication side effect,Nausea Place 1 Tablet (4 mg) on the tongue every 8 hours if needed for Nausea/Vomiting. 8 Tablet 2 Active oxyCODONE (ROXICODONE) 5 mg immediate release tabletIndications: Acute pain of left shoulder Take 1 Tablet (5 mg) by mouth every 6 hours if needed for Pain. 3 Tablet 4 Active phenazopyridine (PYRIDIUM) 200 mg tabletIndications: Dysuria Take 1 Tablet (200 mg) by mouth three times daily after meals. 6 Tablet 4 Active phenazopyridine (PYRIDIUM) 200 mg tabletIndications: Dysuria Take 1 Tablet (200 mg) by mouth three times daily after meals for 2 days. 6 Tablet 4 08/27/19 24 Discontinued Active Problems Problem Noted Date Diagnosed Date [...] disorder 05/10/2018 05/07/2019 Multiple gastric ulcers 02/11/2018 020 08/2019 Anemia due to acute blood loss 02/11/2018 [...] Encounters Date Type Department Care Team Description 08/27/2023 8:44 AM CDT - 08/27/2023 9:51 AM CDT Emergency [facility] [address] [place] [address] Marbin Bernabe MD Dysuria (Primary Dx); Urinary frequency Discharge Disposition: Home Self Care 08/27/2023 Travel 07/22/2023 8:49 AM CDT - 07/22/2023 11:28 AM CDT Emergency [facility] [address] [place] [address] Briseida Larsen DO Acute pain of left shoulder (Primary Dx) [...] Smoking Tobacco: Every Day Cigarettes Smokeless Tobacco: Current Tobacco Cessation:Ready to Q uit: Not Asked; Counseling Given: Not Answered Comments:does not want to quit Alcohol Use Standard Drinks/Week Comments Not Currently 0 (1 standard drink = 0.6 oz pur e alcohol) sober 18 months Sex and Gender Information Value Date Recorded [...] VACU Trice ng Alana McInt yre Delivery Location:[facility] 07/18 Term 37w 0d 2.38 kg (5 lb 4 oz) M VAGINAL VACU Trice ng 9 9 Krist opher McInt yre Delivery Location:[facility] 12/15 SAB 10w 0d SPONTANEO US Feta l [place] se Delivery Location:[facility] Comments:D&C 10/20 36w 5d 3.12 kg (6 lb 14 oz) F Vag Trice ng 8 9 Maken zie McInt yre Delivery Location:[facility] Last Filed Vital Signs Vital Sign Reading Time Taken Comments Blood Pressure 142/80 08/27/2023 8:51 AM CDT Pulse 103 08/27/2023 8:51 AM CDT Temperature 37.1 ??C (98.7 ??F) 08/27/2023 8:51 AM CD T Respiratory Rate 18 08/27/2023 8:51 AM CDT Oxygen Saturation 99% 08/27/2023 8:51 AM CDT Inhaled Oxygen Concentration - - Weight 68.5 kg (151 lb) 08/27/2023 8:51 AM CDT Height 167.6 cm (5' 6) 08/27/2023 8:51 AM CDT Body Mass Index 24.37 08/27/2023 8:51 AM CDT Plan of Treatment Health [...] Procedure Name Priority Date/Time Associated Diagnosis Comments GC CHLAMYDIA TRACH PROBE STAT 08/27/2023 9:17 AM CDT TRICHOMONAS, CALEB, AND BACTERIAL VAGINOSIS BY MARGARET STAT 08/27/2023 9:17 AM CDT URINE CULTURE ROSY 08/27/2023 9:08 AM CDT URINALYSIS MICROSCOPIC STAT 08/27/2023 9:08 AM CDT UA W/ SEDIMENT EXAM REFLEXED PER CRITERIA STAT 08/27/2023 9:08 AM CDT XR SHOULDER 3 VIEWS LEFT STAT 07/22/2023 9:54 AM CDT CBC W PLT NO DIFF STAT 07/22/2023 9:4 1 AM CDT HPV THIN PREP Routine 08/09/2021 12:45 PM CDT ANTI HIV 1/2 Routine 03/25/2008 10:58 AM ROBOTIC MACHINE OPERATOR Supervision of Other Normal from Last 3 Months or Most Recently Relevant to Health Maintenance Results * TRICHOMONAS, CALEB, AND BACTERIAL VAGINOSIS BY MARGARET (08/27/2023 9:17 AM CDT) CALEB SPECIES Negative Negative 5:46 PM CDT [facility] CALEB GLABRATA Negative Negative 08/27/2023 5:46 PM CDT [facility] TRICHOMONAS VVA Negative Negative 5:46 PM CDT [facility] BACTERIAL VAGINOSIS Negative Negative 08/27/2023 5:46 PM CDT [facility] Other VAGINAL SWAB / Unknown Non-Blood / Unknown 08/27/2023 9:17 AM CDT 08/27/2023 9:19 AM CDT Marbin Bernabe MD MICROBIOLOG Y Performing Organization Address City/[facility]/ZIP Co de Phone Number [facility] [address] [place] [address], * GC CHLAMYDIA TRACH PROBE (08/27/2023 9:17 AM CDT) CHLAMYDIA PROBE Negative 6:17 PM CDT [facility] N GONORRHOEAE PROBE Negative 08/27/2023 6:17 PM CDT [facility] Other VAGINAL SWAB / Unknown Non-Blood / Unknown 08/27/2023 9:17 AM CDT 08/27/2023 9:19 AM CDT Marbin Bernabe MD MICROBIOLOG Y [facility] [address] [address], [place] * (ABNORMAL) URINALYSIS MICROSCOPIC (08/27/2023 9:08 AM CDT) RBC 3-5(A) 0-2, None Seen /HPF 08/27/2023 9:18 AM CDT [facility] WBC 11-25(A) 0-2, 3-5, None Seen /HPF 08/27/2023 9:18 AM CDT [facility] BACTERIA Few None Seen, Rare, Few Bacteria/H PF 08/27/2023 9:18 AM CDT [facility] EPITHELIAL CELLS Few None Seen, Few Epi/HPF 08/27/2023 9:18 AM CDT [facility] Urine URINE SPECIMEN / Unknown Non-Blood / Unknown 08/27/2023 9:08 AM CDT 08/27/2023 9:13 AM CDT Marbin Bernabe MD URINE Performing Organization Address City/[facility]/ZIP Co de Phone Number [facility] [address] [place] [address] * URINE CULTURE (08/27/2023 9:08 AM CDT) CULTURE No growth (<1,000 CFU/mL) 08/28/2023 7:18 AM CDT [facility] Urine URINE SPECIMEN / Unknown Non-Blood / Unknown 08/27/2023 9:08 AM CDT 08/27/2023 9:13 AM CDT Marbin Bernabe MD MICROBIOLOG Y [facility] [address] [address], [place] * (ABNORMAL) UA W/ SEDIMENT EXAM REFLEXED PER CRITERIA (08/27/2023 9:08 AM CDT) COLOR Yellow Yellow Color 08/27/2023 9:16 AM CDT [facility] CLARITY Clear Clear Clarity 08/27/2023 9:16 AM CDT [facility] SPECIFIC GRAVITY,URINE <=1.005(A) 1.010, 1.015, 1.020, 1.025 08/27/2023 9:16 AM T [facility] PH,URINE 6.5 6.0, 7.0, 8.0, 5.5, 6.5, 7.5, 8.5 08/27/2023 9:16 AM [facility] UROBILINOGEN, QUALITATIVE Normal Normal EU/dl 08/27/2023 9:16 AM [facility] PROTEIN, URINE Negative Negative mg/dL 08/27/2023 9:16 AM [facility] GLUCOSE, URINE Negative Negative mg/dL 08/27/2023 9:16 AM [facility] KETONES,URINE Negative Negative mg/dL 08/27/2023 9:16 AM [facility] BILIRUBIN,URI NE Negative Negative 08/27/2023 9:16 AM [facility] OCCULT BLOOD,URINE Moderate(A) Negative 08/27/2023 9:16 AM [facility] NITRITE Negative Negative 08/27/2023 9:16 AM [facility] LEUKOCYTE ESTERASE Large(A) Negative 08/27/2023 9:16 AM [facility] Urine URINE SPECIMEN / Unknown Non-Blood / Unknown 08/27/2023 9:08 AM CDT 08/27/2023 9:13 AM CDT Marbin Bernabe MD URINE Performing Organization Address [facility]/State/ZIP Co de Phone Number [facility] [address] [place] [address] * XR SHOULDER 3 VIEWS LEFT (07/22/2023 [...] For Patients: As a result of the Cures Act, medical imagingexams and procedure reports [...] @ 07/22/2023 10:17:21 AM (Electronically Signed) Briseida Jyotibernice Quigleyutjessica DO GENER AL IMAGING * CBC W PLT NO DIFF (07/22/2023 9:41 AM CDT) WHITE BLOOD COUNT 4.9 4.5 - 11.0 thou/cu mm 07/22/2023 9:48 AM T [facility] RED BLOOD COUNT 4.34 4.00 - 5.20 mil/cu mm 07/22/2023 9:48 AM T [facility] HEMOGLOBIN 13.0 12.0 - 16.0 g/dL 07/22/2023 9:48 AM T [facility] HEMATOCRIT 38.5 33.0 - 51.0 % 07/22/2023 9:48 AM [facility] MCV 89 80 - 100 fL 07/22/2023 9:48 AM CDT [facility] MCH 30.0 26.0 - 34.0 pg 07/22/2023 9:48 AM CDT [facility] MCHC 33.8 32.0 - 36.0 g/dL 07/22/2023 9:48 AM CDT [facility] RDW 13.5 11.5 - 15.5 % 07/22/2023 9:48 AM CDT [facility] PLATELET COUNT 264 140 - 440 thou/cu mm 07/22/2023 9:48 AM CDT [facility] MPV 9.9 6.5 - 11.0 fL 07/22/2023 9:48 AM CDT [facility] Blood BLOOD SPECIMEN / Unknown Venipuncture / Unknown 07/22/2023 9:41 AM CDT 07/22/2023 9:44 AM CDT Briseida Styles DO HEMAT OLOGY [facility] [address] [place] [address] * HPV HIGH RISK (08/09/2021 12:45 PM CDT) TYPE 16 Negative Negative 08/11/2021 10:50 AM CDT [facility] TYPE 18 Negative Negative 08/11/2021 10:50 AM CDT [facility] OTHER HIGH RISK TYPES Negative Negative 08/11/2021 10:50 AM CDT [facility] Other (Cervical/Vagina l) 08/09/2021 12:45 PM CDT 08/10/2021 7:52 AM CDT Narrative [facility] - 08/11/2021 10:50 AM CDT HPV types 16, 18, 31, 33, 35, 39, 45, 51, 52, 56, 58, 59, 66 and 68 DNA were undetectable or below the pre-set threshold. Methodology: [employer] 4800 HPV Test Willy Serrano MD MICROBIOLOGY [facility] [address] [place] [address], * ANTI HIV 1/2 (03/25/2008 10:58 AM ROBOTIC MACHINE OPERATOR) ANTI HIV 1/2 Non-reacti ve [facility] Blood specimen (specimen) BLOOD SPECIMEN / Unknown 03/25/2008 10:58 AM ROBOTIC MACHINE OPERATOR 03/25/2008 10:51 AM ROBOTIC MACHINE OPERATOR Willy Serrano MD SEND OUTS [facility] INTERNAL ZIP [address] [place] [address] from Last 3 Months or Most Recently [...] 9:46 PM 02/11/2018 4:44 PM Care Teams Dairy Hand Relationship Specialty Start Date End Date Willy Serrano MD [address] [place] [address] PCP - General Family Practice 03/30/21
--- OUTSIDE RECORDS SUMMARY | 2023-08-28 11:49 | XMS_ITS | Continuity of Care Document ---
Author Organization [facility] Address [address] [place] [address] Phone Care Team Providers Care Community Administrator Name Role Phone David Herrera MD Unavailable Unavailable Advance Directives Directive Yes / No Effective Date File Name No Information Encounters Encounter Description Practice Location Reason(s) For Visit Diagnoses Date Provider Providers Copied on Encounter [facility], [address], [place], [address], [place] tel:[phone] [facility], No Information Mar-2 0-201 3 Javier Hernandez. [facility] [address], [place], [address], [place]. tel:[phone] Family History Family Member Type Diagnosis Age [...]
--- OUTSIDE RECORDS SUMMARY | 2023-08-28 11:49 | XMS_ITS | Continuity of Care Document ---
Author Organization [facility] Address [address] [place] [address] Phone Care Team Providers Care Political Analyst Name Role Phone Brodie Saldaña Unavailable Unavailable [...] Available - Active Procedures Procedure Date Office/Outpatient Visit,[facility] 2020 Advance Directives Directive Yes / No Effective Date File Name No Information Encounters Encounter Description Practice Location Reason(s) For Visit Diagnoses Date Provider Providers Copied on Encounter [facility], [address], [place], [place], [id number], tel:[phone] [facility] [place] No Information Devante Calloway. [facility], [address], [facility] [place], [id number], [place]. tel:[phone] Office/Outpat ient Visit,New, [facility], [address], [place], [place], [id number], [place] tel:[phone] [facility] Low back pain Devante Calloway. [facility], [address], [place], [place], [id number], [place]. tel:[phone] Referring Provider: Konstantin Terrell, [address], [address]. tel:[phone] Family History Family Member Type Diagnosis Age At Onset No Information Payers Payer name Insurance type Covered alliance party ID Viet ortega(s) [facility] [id number] [facility] [id number] Social History Type Description Quantity Date Captured [...]
--- OUTSIDE RECORDS SUMMARY | 2023-08-28 11:49 | XMS_ITS | Continuity of Care Document ---
Author Organization [facility] Address [address] [facility] [place] [address] Phone Care Team Providers Care Credit Investigator Name Role Phone Will MD [place], [employer] [...] VISIT, [facility] OFFICE/OUTPATIENT VISIT, NEW Advance Directives Directive Yes / No Effective Date File Name No Information Encounters Encounter Description Practice Location Reason(s) For Visit Diagnoses Date Provider Providers Copied on Encounter [facility], [address] [place] [address], [id number] , [place] tel: [phone] [facility] No Information 2 Corey Huntley. [address] [place], [place] [address], [id number] , [place]. tel: [phone] OFFICE/OUTPA TIENT VISIT, [facility], [address] [place] [address], [id number] , [place] tel: [phone] [facility] Back Pain (chief complaint) FibromyalgiaOther intervertebral disc displacement, lumbar regionBipolar disorder, unspecifiedAlcohol abuse, in remissionOther usp (current) drug therapy Sep-2 1 Burdick Josh. [employer], [address], [place], [address], [place]. [phone] Referring Provider: Audi Dominguez, [address] [place], [place] [address], [address] . tel:[phone] [facility], [address] [place] [address], [id number] , [place] tel: [phone] [facility] No Information Sep- 1 Burdick Josh. [employer], [address], [place], [address], [place]. [phone] OFFICE/OUTPA TIENT VISIT, NEW [facility], [address] [place] [address], [id number] , [place] tel: [phone] [facility] Back Pain (chief complaint) FibromyalgiaOther intervertebral disc displacement, lumbar regionBipolar disorder, unspecifiedAlcohol abuse, in remissionOther bed bug exterminator (current) drug therapy Sep-0 -202 1 Gennaro Moreno. [employer], [address], [place], [address], [place]. tel:[phone] Referring Provider: Audi Dominguez, [address] [facility] [place], [address] . tel:[phone] Family History Family Member Type Diagnosis Age At Onset Mother Problem Bulging discs/back surgery Payers Payer name Insurance type Covered alliance party ID Authoriza tirebeca(s) [facility] [id number] Social History Type Description Quantity Date Captured Comments Sex Female Smoking Status No Information Chief Complaint And Reason For Visit No Information Reason For Referral Reason For Referral No Information Plan Of Treatment Date Type Action Status Goal Review Allergy List. Due on due Goal Tobacco Use. Due on 021 due Goal PHQ-9. Due on du e Goal Medication Reconciliation. D ue on due Goal Height. Due on d ue Goal Weight. Due on d ue Goal Update Social History. Due o n due Goal Height. Due on d ue Goal Medication Reconciliation. D ue on due Goal PHQ-9. Due on du e Goal Tobacco Use. Due on 021 due Goal Update Social History. Due o n due Goal Weight. Due on d ue Goal Review Allergy [...] of cauda equina syndrome. Continues to utilize managed care liaison. She is interested in pursuing any treatment option that can help ease some of the painShe states she previously consulted with rheumatology but did not have a good experience. She reports she has previously been advised to complete the pain rehab program at [facility] by another provider.She details she continues [...] She starts PT this week. Currently doing managed care liaison and uses a ReSnapi at home. Certified for cannabis, but too [...]
--- OUTSIDE RECORDS SUMMARY | 2023-08-28 11:49 | XMS_ITS | Clinical Summary ---
Author Organization [facility] Address [address], [place] [address] Care Team Providers Care Ram Car Operator Name Role Phone Needs Pcp, Assignment Primary Care Provider [phone] Source Comments You are receiving this document as you are listed as the primary care provider,follow-up provider, or the patient has been referred to you for consultation.This is in compliance with the Medicare andMercy Healthcaid EHR Incentive Program,which states Providers who transition their patient to another setting of careor provider of care or refers their patient to another provider of care shouldprovide summary care record for each transition of care or referral. 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 Temperature 37.1 ??C (98.8 ??F) 05/20/2020 10:[address] Respiratory Rate - - Oxygen Saturation - - Inhaled Oxygen Concentration - - Weight 79.8 kg (176 lb) 05/20/2020 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 Height 167.6 cm (5' 6) 05/20/2020 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 Body Mass Index 28.41 05/20/2020 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 Plan of Treatment Health Maintenance Due Date Last Done Comments Cervical Cancer Screening Due 1982 Hep C Screening (Preventive Services) 1980 Adult Preventive Visit 01/28/2000 HepB (1) 2001 HPV Vaccine (3 - 3-dose series) 09/13/2006 06/21/2006, 03/08/2006 Pneumococcal (2 - PCV) 12/01/2013 12/01/2012 COVID-19 Vaccine ( - 24 season) 2022 Influenza (Season Ended) 2023 019, 12/31/2017, 12/18/2017, Additional history exists DTaP/Tdap/Td (5 - [...] Negative (Non Reactive) 07/12/2021 10:18 PM CDT [facility] Comment:HIV-1 p24 Antigen an d HIV-1/HIV-2 Antibody not detected Blood Venipuncture / Unknown 07/12/2021 4:17 PM CDT 07/12/2021 4:17 PM CDT Aki Jarquin MD LAB_1 [facility] [address] [place] [address], [facility] from Last 3 Months or Most Recently Relevant to Health Maintenance Care Teams Ram Car Operator Relationship Specialty Start Date End Date Needs Pcp, [place] [address] PCP - General 05/20/20
== END 2023-08-28 11:47 | disposition home or self-care (01) ==
PROVIDERS: PCP Family Medicine; Visit Provider Registered Nurse
DX: N89.8 Other specified noninflammatory disorders of vagina (principal)
CPT/HCPCS: 87252

== ENCOUNTER 2023-11-28 13:36 | Outpatient (CLI) | payer BC, SELFPAY ==
--- OUTSIDE RECORDS SUMMARY | 2023-11-28 13:39 | XMS_ITS | Clinical Summary ---
Author Organization [facility] Address [address], [place] [address] Care Team Providers Care Pe Electrical Engineer Name Role Phone Needs Pcp, Assignment Primary Care Provider [phone] Source Comments You are receiving this document as you are listed as the primary care provider,follow-up provider, or the patient has been referred to you for consultation.This is in compliance with the Medicare andKindred Healthcarecaid EHR Incentive Program,which states Providers who transition their patient to another setting of careor provider of care or refers their patient to another provider of care shouldprovide summary care record for each transition of care or referral. [facility] Network Allergies Active Allergy Reactions Criticality Noted Date [...] (gastroesophageal reflux disease) 9 Allergic rhinitis 04/16/2006 Overview (05/20/2020): Environmental Allergies Rheumatoid arthritis 05/03/1985 Immunizations Name Administration Dates Next Due 4vHPV (Gardasil) 06/21/2006,03/08/2006 DTaP 11/03/2008 Flu Vac (3+ yrs) 01/30/2013, 2,03/06/2011,2007 Flu Vac Preserv Free (3+yrs) 02/04/2010 [id number] 02/26/2009 Influenza V3V7-84 02/26/2009 Influenza IIV4 (Quadrivalent ) 0.5mL (01306) 01/29/2019,12/18/2017 Influenza, Unspecified Formulation 12/31,12/18/2016,03/08/2016,2010,03/25/2008 MMR 04/02/1994 [...] Comments Blood Pressure 127/72 05/20/2020 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 Pulse 83 05/20/2020 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 Temperature 37.1 ??C (98.8 ??F) 05/20/2020 10:[address] Respiratory Rate - - Oxygen Saturation - - Inhaled Oxygen Concentration - - Weight 79.8 kg (176 lb) 05/20/2020 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 Height 167.6 cm (5' 6) 05/20/2020 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 Body Mass Index 28.41 05/20/2020 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 Plan of Treatment Health Maintenance Due Date Last Done Comments Cervical Cancer Screening Due 1982 Hep C Screening (Preventive Services) 1982 MTM Covered 1982 Mammogram 1982 Adult Preventive Visit 01/28/2000 HepB (1) 2001 HPV Vaccine (3 - 3-dose series) 09/13/2006 06/21/2006, 03/08/2006 Pneumococcal (2 - PCV) 12/01/2013 12/01/2012 COVID-19 Vaccine (1 - 2022-24 season) 2022 Influenza (#1) 2023 01/29/2019, 10/0 04/2017, 12/18/2017, Additional history exists DTaP/Tdap/Td (5 - [...] Negative (Non Reactive) 07/12/2021 10:18 PM CDT [facility] Comment:HIV-1 p24 Antigen an d HIV-1/HIV-2 Antibody not detected Blood Venipuncture / Unknown 07/12/2021 4:17 PM CDT 07/12/2021 4:17 PM CDT Aki Jarquin MD LAB_1 [facility] [address] from Last 3 Months or Most Recently Relevant to Health Maintenance Care Teams Pe Electrical Engineer Relationship Specialty Start Date End Date Needs Pcp, [place] [address] PCP - General 05/20/20
--- OUTSIDE RECORDS SUMMARY | 2023-11-28 13:39 | XMS_ITS | Clinical Summary ---
Author Organization [facility] Address [place], [place] [address] Care Team Providers Care Pharmacy Informatics Manager Name Role Phone Willy Serrano MD Primary [...] oxyCODONE (ROXICODONE) 5 mg immediate release tabletIndications:Ac dana pain of left shoulder Take 1 Tablet (5 mg) by mouth every 6 hours if needed for Pain. 3 Tablet 07/22/2023 Active phenazopyridine (PYRIDIUM) 200 mg tabletIndications:Dy suria Take 1 Tablet (200 mg) by mouth three times daily after meals. 6 Tablet 08/27/2023 Active Active Problems Problem Noted Date Diagnosed [...] type 08/28/2013 Controlled substance agreement signed and arun coronel 05/29/13 05/29/2013 Borderline personality disorder 11/01/2011 Raynaud's [...] use of other medications 02/07/2012 02/07/2012 Overview: controlled sub agreement 02/11 Encounter for long-term [...] Outcome GA Total Labor Labor/2nd/3rd Weight Sex Type Anes PTL Steffany A1 A5 Name Clin 2001 Term 38w 0d 3.29 kg (7 lb 4 oz) F VAGINA L VACU Livin g Alana McInt yre Delivery Location:[facility] 2004 Term 37w 0d 2.38 kg (5 lb 4 oz) M VAGINA L VACU Livin g 9 9 Kristo pher McInt yre Delivery Location:[facility] 2006 SAB 10w 0d SPONTA NEOUS Demis e Delivery Location:[facility] Comments:D&C 2008 36w 5d 3.12 kg (6 lb 14 oz) F Vag Livin g 8 9 Makenz ie McInt yre Delivery Location:[facility] Last Filed Vital Signs Vital Sign [...] ANTI HIV 1/2 Routine 03/25/2008 10:58 AM [employer] Supervision of Other Normal from Last 3 Months or Most Recently Relevant to Health Maintenance Results * HPV HIGH RISK (08/09/2021 12:45 PM CDT) TYPE 16 Negative Negative 08/11/2021 10:50 AM CDT [facility] TYPE 18 Negative Negative 08/11/2021 10:50 AM CDT [facility] OTHER HIGH RISK TYPES Negative Negative 08/11/2021 10:50 AM CDT [facility] Other (Cervical/Vagina l) 08/09/2021 12:45 PM CDT 08/10/2021 7:52 AM CDT Narrative [facility] - 08/11/2021 10:50 AM CDT HPV types 16, 18, 31, 33, 35, 39, 45, 51, 52, 56, 58, 59, 66 and 68 DNA were undetectable or below the pre-set threshold. Methodology: Valentino Anu 4800 HPV Test Willy Serrano MD [facility] [address] [place] [address], * ANTI HIV 1/2 (03/25/2008 10:58 AM [employer]) ANTI HIV 1/2 Non-reacti ve [facility] Blood specimen (specimen) BLOOD SPECIMEN / Unknown 03/25/2008 10:58 AM [employer] 03/25/2008 10:51 AM [employer] Willy Serrano MD SEND OUTS [facility] INTERNAL ZIP [address] [address] from Last 3 Months or Most Recently [...] 9:46 PM 02/11/2018 4:44 PM Care Teams Pharmacy Informatics Manager Relationship Specialty Start Date End Date Willy Serrano MD [address] [place] [address] PCP - General Family Practice 03/30/21
--- NOTE | 2023-11-28 13:45 | MR_ITS ---
[address] [address] Phone:?[phone] Fax:?[phone] Referring Physician Information: Jad Llanos [address] [facility] [address] Phone:?[phone] Fax:?[phone] Patient:?Marlin Plummer D.O.B:?1980 Sex:?Female Phone:?[phone] [facility] MRN:?[id number] Exam Date:?11/28/2023 EXAM: MRI of the LEFT SHOULDER, without contrast CLINICAL INFORMATION: Female, 43 years old, with left shoulder pain. INDICATION: Evaluate shoulder pain. PRIOR SURGERY: History of shoulder surgery. PLAIN FILMS: Multiple shoulder radiographs, most recently from 11/19/2023. COMPARISONS: Left shoulder MRI dated 05/18/2023. TECHNICAL INFORMATION: Using a 1.5T MR scanner and a localizing surface coil: coronal obliques: PD, T2, STIR sagittal obliques: PD, T2 axials: PD, T2 SEDATION: None CONTRAST: None FINDINGS: Bones: Proximal humerus: No fracture or marrow edema/pathology. No humeral Hill-Sachs or reverse Hill-Sachs lesion/impaction or contusion. Glenoid: No fracture or marrow edema/pathology. No osseous Bankart lesion. Rotator cuff and muscles/tendons: Supraspinatus: Mild supraspinatus tendinopathy, without tendon tear or muscle atrophy. Infraspinatus: Mild infraspinatus tendinopathy, without tendon tear or muscle atrophy. Teres minor: No tendinopathy, tear or atrophy. Subscapularis: No tendinopathy, tear or atrophy. Deltoid: No strain or atrophy. Coracoacromial arch: Acromion morphology: Status post anterior acromioplasty for subacromial decompression, with good result. Acromiohumeral space: The acromiohumeral space is decompressed. Coracohumeral space: The coracohumeral space is within normal limits. Acromioclavicular joint: Joint: Status post AC joint resection for subacromial decompression, with good result. Ligaments: Coracoclavicular ligaments are intact. Bursae: Subacromial-subdeltoid: Mild subacromial-subdeltoid bursal fluid/bursitis. Subcoracoid: No convincing subcoracoid bursal thickening/bursitis. Biceps tendon: The long head of the biceps tendon is present within the bicipital groove. The intra-articular and extra-articular segments are intact without tendinosis, tenosynovitis, or displacement. Glenohumeral joint: Effusion/cyst: No significant glenohumeral joint effusion. Articular cartilage: Humeral head: No osteochondral abnormalities. Glenoid: No osteochondral abnormalities. Loose bodies: No discrete intra-articular body within the joint. Labrum:?Intrasubstance degeneration and fraying of the superior and anterior labrum, without discrete tear. No paralabral cyst. Inferior glenohumeral ligament/axillary pouch:?Mild-moderate thickening of inferior capsuloligamentous structures (coronal PD series 5 images 13-17). Additionally, there is soft tissue thickening throughout the rotator interval and subcoracoid recess (sagittal T2 series 8 images 9-12). IMPRESSION: 1. Status post anterior acromioplasty and AC joint resection for subacromial decompression, with good result. However, there is mild subacromial-subdeltoid bursal fluid/bursitis, which was not present on the prior study. 2. Mild supraspinatus & infraspinatus tendinopathy. No rotator cuff tendon tear. 3. Findings in keeping with any clinical symptoms of adhesive capsulitis. These findings are more pronounced than on the prior study. 4. No tendinopathy, displacement, or tear of the biceps long head tendon. 5. No full-thickness chondral defect or evidence of glenohumeral joint osteoarthritis. 6. No labral tear or paralabral cyst. BC Electronically signed on 11/29/2023 8:19:00 AM by Mohit Langtson M.D.
== END 2023-11-28 13:37 | disposition home or self-care (01) ==
LOC: MRI 13:37
PROVIDERS: PCP Family Medicine; Visit Provider Physician Assistant
DX: M25.512 Pain in left shoulder (principal); M75.52 Bursitis of left shoulder; M75.02 Adhesive capsulitis of left shoulder; M89.8X1 Other specified disorders of bone, shoulder; Z98.890 Other specified postprocedural states
CPT/HCPCS: 73221

== ENCOUNTER 2023-12-23 10:44 | Emergency (ER) | payer BC, SELFPAY ==
[2023-12-23 10:59] VITALS: BP 122/80; PULSE 95; RESP 18; TEMP 36.4; O2SAT 99; BMI 24.9
--- NOTE | 2023-12-23 11:02 | ED_ITS ---
HPI - General Adult General Date Seen: 12/23/23 Chief complaint: Shoulder Injury/Pain Stated complaint: Severe L shoulder pain Time Seen by Provider: 12/23/23 11:02 History of Present Illness HPI narrative: 43-year-old female with a past history of previous left shoulder arthroscopy, also shoulder surgery in July with partial resection of distal clavicle and shoulder , additional past history of depression, asthma, bipolar, borderline personality, tobacco use, id redness of her teeth, migraine headaches, Raynaud's disease, rheumatoid arthritis 11/19/23 was seen in orthopedic clinic by Dr. Tse for left shoulder. X-ray showed ?adequate acromioplasty and distal clavicle resection. 10/16-had postop visit in the [facility], Dr. Dash. reports persistent anterior and lateral pain. However, these symptoms are less severe than her preop symptoms. She is doing well...? has discharged her from physical therapy. She had another checkup a few weeks ago for worsening pain. She had an outpatient MRI that apparently showed bursitis and tendonitis in her shoulder. She was re-referred physical therapy. MRI SHOULDER 11/28/23 IMPRESSION: 1. Status post anterior acromioplasty and AC joint resection for subacromial decompression, with good result. However, there is mild subacromial-subdeltoid bursal fluid/bursitis, which was not present on the prior study. 2. Mild supraspinatus & infraspinatus tendinopathy. No rotator cuff tendon tear. 3. Findings in keeping with any clinical symptoms of adhesive capsulitis. These findings are more pronounced than on the prior study. 4. No tendinopathy, displacement, or tear of the biceps long head tendon. 5. No full-thickness chondral defect or evidence of glenohumeral joint osteoarthritis. 6. No labral tear or paralabral cyst. She started physical therapy 3 days ago on . Since then she has had been having significant flare pain in her left shoulder that radiates up to the left side of her neck and down her left arm. The pain is worse whenever she tries to move her shoulder. It has not been swollen. No redness. No fever. No numbness or weakness in her arm. Nose swelling of her arm. No fall or new injury. She has been trying to manage her shoulder pain with Tylenol and ibuprofen , alternating. She also takes meloxicam once per day every morning. She has a history of GERD and ulcers and says that her stomach is irritated because of all the NSAID she is taking. She takes Lyrica. She also takes naltrexone to Ingrid sobriety from alcohol. She did take that a couple of days ago. She says she has a history of adverse reactions to morphine but has done okay with oxycodone in the past after her shoulder surgery. Related Data Home Medications ?Medication ?Instructions ?Recorded ?Confirmed duloxetine 60 mg capsule,delayed 60 mg PO QDAY 11/02/21 12/07/23 release naltrexone 50 mg tablet 50 mg PO QAM 05/29/22 12/07/23 cariprazine 6 mg capsule 6 mg PO QDAY 09/25/22 12/07/23 trazodone 100 mg tablet 100 - 150 mg PO QPM PRN insomnia 09/25/22 12/07/23 metronidazole 0.75 % (37.5 mg/5 1 appful vaginal .twice weekly 01/18/23 12/07/23 gram) vaginal gel cariprazine 1.5 mg capsule 1.5 mg PO DAILY 02/08/23 12/07/23 (Vraylar) levonorgestrel 21 mcg/24 hr (up to 1 device intrauterine ONCE 04/04/23 12/07/23 8 years) 52 mg intrauterine device (Mirena) cholecalciferol (vitamin D3) 50 50 mcg PO DAILY 10/29/23 12/07/23 mcg (2,000 unit) capsule lamotrigine 25 mg tablet 50 mg PO DAILY 10/29/23 12/07/23 Previous Rx's ?Medication ?Instructions ?Recorded fluticasone 250 mcg-salmeterol 50 1 inh inhalation BID #60 ea 07/31/22 mcg/dose blistr powdr for inhalation (Advair Diskus) albuterol sulfate 2.5 mg/3 mL 2.5 mg (3 mL) inhalation Q6H PRN 08/06/22 (0.083 %) solution for nebulization shortness of breath or wheezing #90 mL nebulizers #1 ea 08/06/22 ondansetron 8 mg disintegrating 8 mg PO BID PRN nausea and 02/16/23 tablet vomiting #30 tabs nicotine 14 mg/24 hr daily 1 patch transdermal QDAY #14 ea 03/23/23 transdermal patch famotidine 40 mg tablet 40 mg PO QHS #90 tabs 03/30/23 tolterodine 4 mg capsule,extended 4 mg PO QDAY #90 caps 08/02/23 release 24 hr (Detrol LA) minocycline 100 mg capsule 200 mg (2 x 100 mg) PO QDAY #60 08/23/23 caps meloxicam 15 mg tablet 15 mg PO QAM #90 tabs 09/21/23 valacyclovir 1 gram tablet 1,000 mg PO QDAY #90 tabs 10/05/23 nicotine 7 mg/24 hr daily 1 patch transdermal Q24H #28 ea 10/09/23 transdermal patch adapalene 0.1 % topical gel 1 applic topical QHS #45 grams 10/30/23 (Differin) pregabalin 300 mg capsule 300 mg PO BID #60 caps 10/30/23 quetiapine 50 mg tablet (Seroquel) 50 mg PO QHS #30 tabs 10/30/23 polyethylene glycol 3350 17 17 g PO QDAY #850 grams 11/29/23 gram/dose oral powder (Miralax) albuterol sulfate 90 mcg/actuation 2 puff inhalation Q6H PRN 12/13/23 aerosol inhaler shortness of breath or wheezing #8.5 grams oxycodone 5 mg tablet 5 - 10 mg (1 - 2 x 5 mg) PO Q6H 12/23/23 PRN pain #10 tabs Allergies Allergy/AdvReac Type Severity Reaction Status Date / Time bupropion [From Wellbutrin] Allergy Severe manic Verified 12/07/23 08:57 episode latex Allergy Intermediate Verified 12/07/23 08:57 morphine Allergy Intermediate blisters Verified 12/07/23 08:57 naproxen Allergy Intermediate Verified 12/07/23 08:57 piroxicam Allergy Intermediate blisters Verified 12/07/23 08:57 PFS PFS Medical History (Updated 12/23/23 @ 11:53 by Ran Hawkins MD) Insomnia ?G47.00 - Insomnia, unspecified (ICD-10) Mastalgia ?N64.4 - Mastodynia (ICD-10) Major depression, recurrent ?F33.9 - Major depressive disorder, recurrent, unspecified (ICD-10) Mild persistent asthma ?J45.30 - Mild persistent asthma, uncomplicated (ICD-10) Telogen effluvium ?L65.0 - Telogen effluvium (ICD-10) Condyloma acuminata ?A63.0 - Anogenital (venereal) warts (ICD-10) Social phobia (08/28/13) ?F40.10 - Social phobia, unspecified (ICD-10) Rheumatoid arthritis ?M06.9 - Rheumatoid arthritis, unspecified (ICD-10) Raynaud's disease (01/23/11) ?I73.00 - Raynaud's syndrome without gangrene (ICD-10) Posttraumatic stress disorder (06/10/20) ?F43.10 - Post-traumatic stress disorder, unspecified (ICD-10) Nodulocystic acne ?L70.0 - Acne vulgaris (ICD-10) Migraine headache ?G43.909 - Migraine, unspecified, not intractable, without status migrainosus (ICD-10) Irritable bowel syndrome ?K58.9 - Irritable bowel syndrome without diarrhea (ICD-10) Hyperlipidemia ?E78.5 - Hyperlipidemia, unspecified (ICD-10) History of colonic polyps (2020) ?Z86.010 - Personal history of colonic polyps (ICD-10) History of benzodiazepine use ?Z87.898 - Personal history of other specified conditions (ICD-10) Hidradenitis suppurativa (06/06/17) ?L73.2 - Hidradenitis suppurativa (ICD-10) Generalized anxiety disorder (08/28/13) ?F41.1 - Generalized anxiety disorder (ICD-10) Gastroesophageal reflux disease ?K21.9 - Gastro-esophageal reflux disease without esophagitis (ICD-10) Fibromyalgia (08/20/09) ?M79.7 - Fibromyalgia (ICD-10) Chronic vaginitis ?N76.1 - Subacute and chronic vaginitis (ICD-10) Borderline personality disorder (11/01/11) ?F60.3 - Borderline personality disorder (ICD-10) Bipolar I disorder ?F31.9 - Bipolar disorder, unspecified (ICD-10) Allergic rhinitis (04/16/06) ?J30.9 - Allergic rhinitis, unspecified (ICD-10) Surgical History (Updated 12/07/23 @ 09:15 by Fide Mistry PA-C) H/O arthroscopy of shoulder (07/12/23) ?Z98.890 - Other specified postprocedural states (ICD-10) History of hernia repair ?Z98.890 - Other specified postprocedural states (ICD-10) ?Z87.19 - Personal history of other diseases of the digestive system (ICD-10) History of surgery on wrist (1983) ?Z98.890 - Other specified postprocedural states (ICD-10) History of sinus surgery (2010) ?Z98.890 - Other specified postprocedural states (ICD-10) History of ankle fusion (1999) ?Z98.1 - Arthrodesis status (ICD-10) Family History Mother Breast cancer Colon cancer Diabetes Father High blood pressure Thyroid cancer Maternal Grandmother Diabetes Lung cancer Coronary artery disease Paternal Grandmother High blood pressure Stroke Paternal Grandfather Coronary artery disease Social History Narrative: Alcohol abuse- most recent tx 07/2020, inpatient treatment multiple times Alcoholism in recovery- most recently spent 30 days at [facility], released 03/03 04/21 - [place], 4 kids, non-smoker, alcoholic, no other drug use, sober since March 2023 What is your current living situation?: I presently have a place to live Problems where you live: no known problems In the past 12 months, utilities in danger of being shut off: no In past 12 months, lack of transportation kept you from medical appts, meetings, work, or getting things needed for daily living: no In the past 12 mos, have been you worried that your food would run out before you had money to buy more?: never true In the past 12 mos, the food you bought just didn't last and you didn't have money to buy more?: never true Smoking Status: Former smoker Do you use any of these nicotine containing products: Vaping Products Second hand tobacco smoke exposure: No How often do you have a drink containing alcohol: never How often do you have six or more drinks on one occasion: Never AUDIT-C Alcohol total score: 0 Non-prescribed substance use: denies use Caffeine: Yes How often does anyone, including family, friends and others, physically hurt you : never How often does anyone, including family, friends and others, insult or talk down to you: never How often does anyone, including family, friends and others, threaten you with harm: never How often does anyone, including family, friends and others, scream or curse at you: never Little interest or pleasure in doing things: not at all Feeling down, depressed, or hopeless: more than half the days service: No Exam Narrative: Exam Narrative: Constitutional: Appears well-developed and well-nourished. Alert. Conversant. Non toxic. HENT: Head: Atraumatic. Nose: Nose normal. Mouth/Throat: Oral mucosa is clear and moist. no trismus. Eyes: Conjunctivae normal. EOM normal. Pupils equal, round, and reactive to light. No scleral icterus. Neck: Normal range of motion. Neck supple. No tracheal deviation present. No JVD. No swelling. No neck tenderness. Cardiovascular: Normal rate, regular rhythm. No gallop. No friction rub. No murmur heard. Symmetric radial artery pulses Pulmonary/Chest: Effort normal. No stridor. No respiratory distress. No wheezes. No rales. No rhonchi Musculoskeletal: RUE: Normal range of motion. No tenderness. No deformity LUE: Endorses shoulder pain on the anterior deltoid and posterior AC joint. There is no visible swelling. No redness. No warmth. Range of motion the shoulder limited by pain. She does have some shoulder abduction about 30? and normal internal/external rotation to about 45?. No bony crepitus. No tenderness over the scapula. No tenderness over the humerus. Biceps and triceps nontender. Normal flexion and extension of the elbow. Normal pronation/supination of the forearm. Normal flexion extension of the wrist. Normal motor brakeman. Normal finger abduction and extension. Intact axillary, radial, median, ulnar nerve sensory function.No deformity RLE: Normal range of motion. No edema. No tenderness. No deformity LLE: Normal range of motion. No edema. No tenderness. No deformity Lymph: No cervical adenopathy. Neurological: Alert and oriented to person, place, and time. Normal strength. CN II-VII intact. No sensory deficit. GCS eye subscore is 4. GCS verbal subscore is 5. GCS motor subscore is 6. Normal coordination Skin: Skin is warm and dry. No rash noted. No pallor. Normal capillary refill. Psychiatric: Normal mood. Normal affect. Const: Vital Signs, click to edit/add: Vital Signs - 24 hr 12/23/23 10:59 Temperature 97.5 F L Pulse Rate [Pulse Oximeter] 95 Respiratory Rate 18 Blood Pressure [Ri ght Upper Arm] 122/80 Pulse Oximetry 99 Oxygen Delivery Me thod Room Air Course Vital Signs Vital signs: Initial Vital Signs Temperature 97.5 F L 12/23/23 10:59 Temperature Source Temporal Artery Scan 12/23/23 10:59 Pulse Rate 95 12/23/23 10:59 Pulse Rhythm Regular 12/23/23 10:59 Respiratory Rate 18 12/23/23 10:59 Blood Pressure 122/80 12/23/23 10:59 Blood Pressure Mean 94 12/23/23 10:59 Blood Pressure Position Sitting 12/23/23 10:59 Pulse Oximetry 99 12/23/23 10:59 Oxygen Delivery Method Room Air 12/23/23 10:59 Vital Signs Temperature 97.5 F L 12/23/23 10:59 Pulse Rate 95 12/23/23 10:59 Respiratory Rate 18 12/23/23 10:59 Blood Pressure 122/80 12/23/23 10:59 Pulse Oximetry 99 12/23/23 10:59 Oxygen Delivery Method Room Air 12/23/23 10:59 Temperature 97.5 F L 12/23/23 10:59 Pulse Rate 95 12/23/23 10:59 Respiratory Rate 18 12/23/23 10:59 Blood Pressure 122/80 12/23/23 10:59 Pulse Oximetry 99 12/23/23 10:59 Oxygen Delivery Method Room Air 12/23/23 10:59 Medical Decision Making MDM Narrative Medical decision making narrative: 43-year-old female with a history of rheumatoid arthritis, chronic left shoulder pain related to acromioclavicular joint arthritis, now status post surgery in July. She has had pain ongoing since her surgery and recently had an MRI set up through her primary care provider, Dr. Serrano that showed fluid and inflammation in her subacromial/subdeltoid bursa. Also tendinopathy in the supraspinatus and infraspinatus tendons. She is now restarted on physical therapy and since then has had a flare in her left shoulder pain which radiates up her neck and down her arm. Clinical presentation is most consistent with an exacerbation of her chronic p ain due to the resumption in physical therapy. There is no redness or warmth or fever to suggest a septic bursitis or septic arthritis. Although the pain radiates up to her neck, clinical presentation is more consistent with shoulder pain rather than with a neck problem such as cervical radiculopathy. Exam does not reveal any evidence for any DVT or arterial impairment of the left arm. No evidence for shingles. No signs of cellulitis. No recent fall or trauma raise concern for fracture or dislocation. With shared decision-making, patient I agree that this is a flare of her previous pain due to physical therapy. Will treat her pain aggressively rather than pursue additional diagnostic workup. She will follow-up with her ortho team, by phone, tomorrow. They have discussed a steroid injection into the inflamed bursa but she had so far been declining. She wants to move ahead with that now. To manage her pain over the short term will try oxycodone. She does use naltrexone to maintain sobriety with alcohol, which would limit the effectiveness of opiate agonist. Nonetheless will try a short course of oxycodone. Discussed opiate precautions, addiction potential, sedation side effects, and patient understands. She will continue use Tylenol. She has been using meloxicam and ibuprofen. I but advised only 1 NSAID due to risk of ulcers and GERD. She will continue with meloxicam but hold ibuprofen for now. Will continue to use ice and heat packs. Discharge Plan Discharge Clinical Impression: Left shoulder pain Patient Disposition: Home, Self-Care Condition: Stable Instructions: Shoulder Pain (ED) Additional Instructions: As we discussed, please monitor your shoulder carefully and if you have any worsening symptoms such as worsening or severe pain, new redness or swelling, fever, weakness radiating down your arm, or any other problems, please come back to the ER right away. Please recheck with the Orthopedic Clinic and Dr. Tse tomorrow. Continue to treat her pain with Tylenol. Use meloxicam as well. Avoid adding ibuprofen to the meloxicam because this can cause additional side effects. Use caution with oxycodone because it is an opiate. It can cause drowsiness, dizziness so you should not drive. Oxycodone can be addictive. Prescriptions: New oxycodone 5 mg tablet 5 - 10 mg PO Q6H PRN (Reason: pain) Qty: 10 0RF No Action duloxetine 60 mg capsule,delayed release(DR/EC) 60 mg PO QDAY Patient Comments: TAKE ONE CAPSULE BY MOUTH EVERY MORNING naltrexone 50 mg tablet 50 mg PO QAM Patient Comments: TAKE 1/2 TABLET BY MOUTH THREE TIMES A DAY fluticasone propion-salmeterol [Advair Diskus] 250-50 mcg/dose blister with device 1 inh inhalation BID Qty: 60 5RF Mirena 21 mcg/24 hours (8 yrs) 52 mg intrauterine device 1 device intrauterine ONCE Rx Instructions: as a single dose valacyclovir 1 gram tablet 1,000 mg PO QDAY Qty: 90 4RF Rx Instructions: daily suppressive therapy cholecalciferol (vitamin D3) 50 mcg (2,000 unit) capsule 50 mcg PO DAILY lamotrigine 25 mg tablet 50 mg PO DAILY pregabalin 300 mg capsule 300 mg PO BID Qty: 60 1RF quetiapine [Seroquel] 50 mg tablet 50 mg PO QHS Qty: 30 1RF adapalene [Differin] 0.1 % gel 1 applic topical QHS Qty: 45 5RF cariprazine 6 mg capsule 6 mg PO QDAY trazodone 100 mg tablet 100 - 150 mg PO QPM PRN (Reason: insomnia) metronidazole 0.75 % (37.5mg/5 gram) gel 1 appful vaginal .twice weekly Rx Instructions: Twice weekly Vraylar 1.5 mg capsule 1.5 mg PO DAILY (DME) nebulizers [facility] [place] See Rx Instructions .Route Qty: 1 0RF Rx Instructions: As directed albuterol sulfate 2.5 mg /3 mL (0.083 %) solution for nebulization 2.5 mg inhalation Q6H PRN (Reason: shortness of breath or wheezing) Qty: 90 5RF ondansetron 8 mg tablet,disintegrating 8 mg PO BID PRN (Reason: nausea and vomiting) Qty: 30 1RF nicotine 14 mg/24 hr patch 24 hour 1 patch transdermal QDAY Qty: 14 0RF famotidine 40 mg tablet 40 mg PO QHS Qty: 90 3RF tolterodine [Detrol LA] 4 mg capsule,extended release 24hr 4 mg PO QDAY Qty: 90 1RF minocycline 100 mg capsule 200 mg PO QDAY Qty: 60 4RF meloxicam 15 mg tablet 15 mg PO QAM Qty: 90 1RF nicotine 7 mg/24 hr patch 24 hour 1 patch transdermal Q24H Qty: 28 2RF polyethylene glycol 3350 [Miralax] 17 gram/dose powder 17 g PO QDAY Qty: 850 3RF albuterol sulfate 90 mcg/actuation HFA aerosol inhaler 2 puff inhalation Q6H PRN (Reason: shortness of breath or wheezing) Qty: 8.5 2RF Follow Up/Referrals: Willy Serrano MD [Primary Care Provider] - Stand Alone Forms: Vennli Info Instructions
--- OUTSIDE RECORDS SUMMARY | 2023-12-23 12:11 | XMS_ITS | Continuity of Care Document ---
Author Organization [facility] Address [address] [address] [place] [address] Phone Care Team Providers Care Shank Cutter Name Role Phone Jacklyn Morris CRNA Unavailable [...] Active Procedures Procedure Date Colonoscopy Flex; W/remov 24 Level Iv-surg Path Gross/micro 24 Established Level 4 Ugi Endo; W/bx 1/mx Level Iv-surg Path Gross/micro 22 Established Level 3 or 15-24 min 2019 Colonoscopy Flex; W/remov Colonoscopy Flex; W/bx 1/mx Level Iv-surg Path Gross/micro 20 Established Level 3 or 15-24 min 2019 Ugi Endo; W/bx 1/mx Level Iv-surg Path Gross/micro 20 New Level 3 or 30-44 min Advance Directives Directive Yes / No Effective Date File Name No Information Encounters Encounter Description Practice Location Reason(s) For Visit Diagnoses Date Provider Providers Copied on Encounter [facility], [address] [address], [place], [place], [id number], [place] tel:[phone] [facility] No Information 4 Arturo Villasenor. [address] [facility], [facility] [address], [place], [id number], [place]. tel:[phone] Referring Provider: Ran GRAHAM X, [address] [address], [place] [place], [address] . tel:[phone] [facility], [address] [address], [place], [id number], [place] tel:[phone] [facility] GI Symptoms or Concerns (chief complaint) Colorectal polyp detected on colonoscopyEnco unter for screening for malignant neoplasm of colonBenign neoplasm of transverse colonBenign neoplasm of sigmoid colonPersonal history of colonic polyps 4 Maldonado Tong. [address] [facility], [address], [id number], [place]. tel:[phone] Referring Provider: Referral Self, USE FOR SELF REFERRALS. [facility], [address] [address], [place], [place], [address], [place] tel:[phone] [facility] No Information 3 Curly Jiménez. [address] [facility], [facility] [address], [place], [id number], [place]. tel:[phone] [facility], [address] [address], [place], [address], [place] tel:[phone] [facility] No Information 3 Gregory Angeles. [address] [facility], [facility] [address], [place], [address], [place]. tel:[phone] Established Level 4 [facility], [address] [address], [place], [address], [place] tel:[phone] [facility] GI Symptoms or Concerns (chief complaint) Acute diarrheaGERD without esophagitis 2 Gregory PAC Bridgette. [address] [facility], [facility] [address], [place], [place], [address], [place]. tel:[phone] Referring Provider: Referral Self, USE FOR SELF REFERRALS. [facility], [address] [address], [place], [place], [address], [place] tel:[phone] [facility] No Information 0 2 No Information Referring Provider: Brodie Liu MD, [address] [facility] [address], [place] [place], [address] . tel:[phone] [facility], [address] [address], [place], [place], [address], [place] tel:[phone] [facility] GI Symptoms or Concerns (chief complaint) Gastritis determined by endoscopyGastri tis, unspecified, without bleeding May-0 2 Alexa Calloway. [address] [facility], [facility] [address], [place], [place], [address], [place]. tel:[phone] Referring Provider: Willy Serrano MD, [address] [place], [address]. tel:[phone] [facility], [address] [address], [place], [address], [place] tel:[phone] [facility] No Information 0 2 FerrazDeToled o DENNIS JaneKristel. [address] [facility], [facility] [address], [place], [place], [address], [place]. tel:[phone] [facility], [address] [address], [place], [address], [place] tel:[phone] [facility] Gastroesophagea l reflux disease, unspecified whether esophagitis present 0 2 Monson PAC Bridgette. [address] [facility], [facility] [address], [place], [address], [place]. tel:[phone] [facility], [address] [address], [place], [address], [place] tel:[phone] [facility] Diarrhea, unspecified Feb-2 3 1 Joy Nelson. [address], [id number], [place]. tel:[phone] [facility], [address] [address], [place], [address], [place] tel:[phone] [facility] Diarrhea, unspecified May- 1 Monson PAC Bridgette. [address], [id number], [place]. tel:[phone] [facility], [address] [address], [place], [address], [place] tel:[phone] [facility] Irritable bowel syndrome with diarrhea 1 Monson PAC Bridgette. [address], [id number], [place]. tel:[phone] [facility], [address] [address], [place], [place], [address], [place] tel:[phone] [facility] Diarrhea, unspecified Jan- 0 Mark Kline. [address], [id number], [place]. tel:[phone] Established Level 3 or 15-24 min [facility], [address] [address], [place], [address], [place] tel:[phone] [facility] Comment (chief complaint) Diarrhea, unspecifiedGene ralized abdominal pain 0 Gregory PAC Bridgette. [address], [id number], [place]. tel:[phone] Referring Provider: Referral Self, USE FOR SELF REFERRALS. [facility] DENNIS, [address] [address], [place], [address], [place] tel:[phone] [facility] Epigastric painDiarrhea, unspecifiedColo rectal polypsDiverticu losis of colon without diverticulitisB enign neoplasm of cecumBenign neoplasm of ascending colon Dec- 0 Mark Kline. [address] [facility], [address], [id number], [place]. tel:[phone] Referring Provider: Referral Self, USE FOR SELF REFERRALS. Established Level 3 or 15-24 min [facility], [address] [address], [place], [address], [place] tel:[phone] [facility] Comment (chief complaint) Epigastric painDiarrhea, unspecified typeWeight loss Dec- 0 Gregory Angeles. [address] [facility], [address], [id number], [place]. tel:[phone] Referring Provider: Zoë Dominguez, [address] [place] [address], [facility]. tel:[phone] [facility] DENNIS, [address] [address], [place], [id number], [place] tel:[phone] [facility] Epigastric painNausea with vomiting, unspecifiedPers onal history of peptic ulcer diseaseDisease of stomach and duodenum, unspecifiedEpig astric painNausea with vomiting, unspecified Oct- 0 Mark Kline. [address] [facility], [facility] [address], [place], [address], [place]. tel:[phone] Referring Provider: Referral Self, USE FOR SELF REFERRALS. New Level 3 or 30-44 min [facility], [address] [address], [place], [address], [place] tel:[phone] [facility] GI Symptoms or Concerns (chief complaint) Epigastric abdominal painNon-intract able vomiting with nausea, unspecified vomiting typeHistory of peptic ulcer disease 0 Gregory SOBIA Bridgette. [address] [facility], [facility] [address], [place], [place], [address], [place]. tel:[phone] Referring Provider: Referral Self, USE FOR SELF REFERRALS. [facility], [address] [address], [place], [place], [address], [place] tel:[phone] [facility] No Information 0 Joy Nelson. [address] [facility], [facility] [address], [place], [place], [address], [place]. tel:[phone] Family History Family Member Type Diagnosis Age [...] bi-directional interface ; Source: Other Registry Novel itkbginaz-[id number], all formulations administered Note: [facility] bi-direct ional [...] Registry Payers Payer name Insurance type Covered green party ID Authoriza tirebeca(s) Blue Plus 2023 [facility] [id number] Social History Type Description Quantity Date Captured [...] infection. We can send these to your [facility] office. If your insurance does not cover [...] me via the patient portal or call [phone] extension [phone] with questions, worsening symptoms. Related to Acute diarrhea 1. Ok to restart col ace2. Abdominal xray to assess stool burden3. Continue pantoprazole and hyoscyamine4. I will call you with results. Related to Diarrhea, unspecified Colon Cancer Prevention Related to Epigastric pain High Fiber Diet Related to Epiga stric pain Diverticulosis/Diverticulitis Re lated to Epigastric pain Colon Polyps Related to Epiga stric pain Assessments Type Assessment Date No Information Patient Care Teams Name Effective Dates (start - stop) Status Members No Information
--- OUTSIDE RECORDS SUMMARY | 2023-12-23 12:11 | XMS_ITS | Data Portability ---
Author Organization [facility] Address [address] [facility] [address] [place] [address] Care Team Providers Care Lens Maker Name Role Phone STEPHANIE CARDOSO Primary Care Provider Assessment No assessment recorded. Plan of Treatment Reminders Order Date Submit Date Provider Last Modified By Organization Details Last Modified Time Details Appointments None recorded. Lab urinalysis , dipstick 2021 mgustafso n11 [facility], [address] [place], [address], 12:41:59 Referral pelvic floor therapy referral 2021 022 francesca Not available 07:38:19 Procedures None recorded. Surgeries None recorded. Imaging None recorded. Medication Orders Ditropan XL 10 mg tablet,ext ended release 2021 [facility], [place], [place], [address] [place], [address], 12:42:01 Patient TargetsNo targets recorded. Patient Instructions Encounter Date Encounter Id Patient Instructions Last Modified By Organization Details Last Modified Time 12/13/2021 [id number] Treatment option s for Overactive Bladder, including [...] mouth/constipatio n most commonly, or a newer Hfns-0-swojphv medication, Mybetriq & Gemtesa). I have suggested looking into insurance coverage for medication, as some medications are not initially covered well under some plans. [email or web address] Not available 12/13/2021 12:45:50 Reason for Referral Pelvic Floor Therapy Referra l for Urge incontinence of urine Referring Physician: Noemi Friedman, Urology, Encounter Date: 12/13/2021 Results Created Date Observation Date Name Description Value Unit Range Abnormal Flag Note LastModifiedBy Organization Detail LastModifiedTime 12/14/19 22 12/13/2021 urina lysis , dipst ick Color-Status Yellow Not Available [facility] [address], [place], [address], 12/13/2021 12:14:41 12/14/19 22 12/13/2021 urina lysis , dipst ick Clarity-Stat us Clear Not Available [facility] [address], [place], [address], 12/13/2021 12:14:41 12/14/19 22 12/13/2021 urina lysis , dipst ick pH-Status 5.5 Not Available [facility] [address], [place], [address], 12/13/2021 12:14:41 12/14/19 22 12/13/2021 bladd er scan (PROC ) No observ ation record ed. BARCODE Not Available 2021 16:51:36 Result Notes None recorded. Procedures Surgical History Date Name Laterality Status Provider Name and Address Organization Details Recorded Time 2 Bladder Scan completed Earlene Cohen [facility] 12/13/2021 12:14:38 9 Colonoscopy completed Earlene Cohen [facility] 12/13/2021 12:13:24 Hernia Repair completed Earlene Cohen [facility] 12/13/2021 12:13:34 Imaging Results Imaging Date Name Status [facility] Details LastModified Time 12/13/2021 bladder scan (PROC) completed BARCODE Information not available 12/13/2021 16:51:36 Procedure Notes None recorded. Medical Equipment None Reported. Allergies Allergen ID Allergen Name Allergen Category Reaction Reaction Severity Criticality Documentation Date Start Date Code Code System Note Provider Name and Address Organization Details Recorded Time [id number] latex environme nt,medica tion Not available Not available Not available 12/13/2021 18315 91 [facility] 12:05:25 424198 naproxen medicatio n Not available Not available Not available 12/13/2021 7258 [facility] 12:05:33 Medications Name Sig Start Date Stop [...] Updated DateTime 12/13/2021 167.64 cm 30.7 kg/m2 96945.55 g Earlene Cohen [facility] 12/13/2021 12:05:12 Social History Question Answer Notes LastModified by Organizat ion Details LastModified Time Tobacco Smoking Status Current Every Day Smoker Earlene Cohen [facility] 12/13/2021 12:13:10 What Was The Date Of Your Most Recent Tobacco Screening? 12/13/2021 Information not available 12/13/2021 Has Tobacco Cessation Counseling Been Provided? Yes Information not available 12/13/2021 On What Date Was Tobacco Cessation Counseling Provided? 12/13/2021 Information not available 12/13/2021 Sex: Unknown Functional Status None recorded. Mental Status None recorded. Family History Relationship Description Onset Age of this Age Resolved Age Notes LastModified by Organization Details LastModified Time Unspecified Relation Family history of breast cancer domingo Not available 2021 12:12:23 Unspecified Relation Family history of cancer of colon domingo Not available 2021 12:12:29 Unspecified Relation Family history of malignant neoplasm domingo Not available 2021 12:12:35 Unspecified Relation Family history of Hypertension domingo Not available 12:12:41 Unspecified Relation Family history of renal stone kneubert Not available 12/01 12:12:48 Medical History Condition Response Other N High Blood Pressure N Kidney Stones N Lung Disease N Depression Y GERD/Acid Reflux Y Sexually Transmitted Infection N Diabetes N Bleeding Disorder N Cancer N High Cholesterol Y Heart Disease N Gynecological HistoryNo gynecological history recorded. Obstetrics History GPAL:G 0 P 0 0 0 0 Past Encounters Encounter ID Performer Location Encounter Start Date Encounter Closed Date Diagnosis/Indication Diagnosis SNOMED-CT Code Diagnosis ICD10 Code [id number] DENNIS GRIFFIN [facility] [address] [place] [address] 12/13/2021 11:37:46 12/16/2021 14:14:27 Female stress incontinence 70265136 N39.3 Urge incon tinence of urine 57481902 N39.41 Health Concerns Section Related Observation LastModified by Organization Detai ls LastModified Time None Recorded Concern Status LastModified by Organization Details LastModified Time None Recorded Advance Directives Directive None Recorded Payers Encounter Date Sequence Insurance Name Policy Number Policy Caldwell Covered Member ID Caldwell Member ID Guarantor Name 12/13/2021 1 [id number] Marlin Kavitha [id number] Marlin Plummer 12/13/2021 2 [employer] - DOS PRIOR TO 2022 (MEDICAID REPLACEMENT - HMO) [id number] Marlin Kavitha [id number] Marlin Plummer Notes Date Note Type Note [...] 1 cystocele, positive stress test DENNIS GRIFFIN [address] [place] [address],[facility] [address], [place], [address], [facility] 12/13/2021 12:48:04 OBGyn Episode No OBEpisode recorded.
--- OUTSIDE RECORDS SUMMARY | 2023-12-23 12:11 | XMS_ITS | Clinical Summary ---
Author Organization [facility] Address [address], [place] [address] Care Team Providers Care Judicial Clerk Name Role Phone Needs Pcp, Assignment Primary Care Provider [phone] Source Comments You are receiving this document as you are listed as the primary care provider,follow-up provider, or the patient has been referred to you for consultation.This is in compliance with the Medicare and[facility] Hospitalcaid EHR Incentive Program,which states Providers who transition their patient to another setting of careor provider of care or refers their patient to another provider of care shouldprovide summary care record for each transition of care or referral. [place]ingo Allergies Active Allergy Reactions Criticality Noted Date [...] 2,03/06/2011,2007 Flu Vac Preserv Free (3+yrs) 02/04/2010 [id number] 02/26/2009 Influenza F4O0-88 02/26/2009 Influenza IIV4 (Quadrivalent ) 0.5mL (55920) 01/29/2019,12/18/2017 Influenza, Unspecified Formulation 12/31,12/18/2016,03/08/2016,2010,03/25/2008 MMR 04/02/1994 [...] Comments Blood Pressure 127/72 05/20/2020 10:45 AM [employer] DEVELOPER Pulse 83 05/20/2020 10:45 AM [employer] DEVELOPER Temperature 37.1 ??C (98.8 ??F) 05/20/2020 10:[address] Respiratory Rate - - Oxygen Saturation - - Inhaled Oxygen Concentration - - Weight 79.8 kg (176 lb) 05/20/2020 10:45 AM [employer] DEVELOPER Height 167.6 cm (5' 6) 05/20/2020 10:45 AM [employer] DEVELOPER Body Mass Index 28.41 05/20/2020 10:45 AM SAP B[employer] DEVELOPER Plan of Treatment Health Maintenance Due Date Last Done Comments Cervical Cancer Screening Due 1982 Hep C Screening (Preventive Services) 1982 Mammogram 1982 Adult Preventive Visit 01/28/2000 HepB (1) 2001 HPV Vaccine (3 - 3-dose series) 09/13/2006 06/21/2006, 03/08/2006 Pneumococcal (2 - PCV) 12/01/2013 12/01/2012 COVID-19 Vaccine ( - 2023- season) 2023 Influenza (#1) 2023 01/29/2019, 10/0 04/2017, 12/18/2017, [...] Negative (Non Reactive) 07/12/2021 10:18 PM CDT [facility] Comment:HIV-1 p24 Antigen an d HIV-1/HIV-2 Antibody not detected Blood Venipuncture / Unknown 07/12/2021 4:17 PM CDT 07/12/2021 4:17 PM CDT Aki Jarquin MD LAB_[facility] [address] [place] [address], [facility] from Last 3 Months or Most Recently Relevant to Health Maintenance Care Teams Judicial Clerk Relationship Specialty Start Date End Date Needs Pcp, [place] [address] PCP - General 05/20/20
--- OUTSIDE RECORDS SUMMARY | 2023-12-23 12:11 | XMS_ITS | Continuity of Care Document ---
Author Organization [facility] Address [address] [place] [address] Phone Care Team Providers Care Chassis Wirer Name Role Phone David Herrera MD Unavailable Unavailable Advance Directives Directive Yes / No Effective Date File Name No Information Encounters Encounter Description Practice Location Reason(s) For Visit Diagnoses Date Provider Providers Copied on Encounter [facility], [address], [place], [address], [place] tel:[phone] [facility], No Information Mar-2 0-201 3 Javier Hernandez. [facility] [address], [place], [address], [place]. tel:[phone] Family History Family Member Type Diagnosis Age [...]
--- OUTSIDE RECORDS SUMMARY | 2023-12-23 12:11 | XMS_ITS | Clinical Summary ---
Author Organization [facility] Address [place], [place] [address] Care Team Providers Care Drum Sander Setter Name Role Phone Willy Serrano MD Primary [...] daily after meals. 6 Tablet 08/27/2023 Active rx LORazepam (ATIVAN) 0.5 mg tablet (ED DC MED)Indications:Bipo lar affective disorder, currently manic, mild (HC) Take 2 Tablets (1 mg) by mouth at bedtime if needed, may repeat once (insomnia/anca). 4 Tablet 12/16/2023 Active Active Problems Problem Noted Date Diagnosed [...] 08/28/2013 Controlled substance agreement signed and arun d 05/29/13 05/29/2013 Borderline personality disorder 11/01/2011 Raynaud's disease 01/23/2011 Issue of repeat prescriptions 11/02/2010 Overview (11/02/2010): RHEUMATOID ARTHRITIS, Fibromyalgia - taking Klonopin and Ultram IUD (intrauterine device) in place 08/25/2010 Fibromyalgia 08/20/2009 GERD (gastroesophageal reflux disease) 9 ALLERGIC RHINITIS 04/16/2006 Overview (04/16/2006): Environmental Allergies Rheumatoid arthritis(714.0) 05/03/1985 Migraine headache [...] rent) use of other medications 02/07/2012 02/07/2012 Overview (02/07/2012): MH controlled sub agreement 02/11 Encounter for long-term (cur rent) use of other medications 12/13/2011 05/07/2019 Overview (12/13/2011): Cont sub agreement 12/12 Bipolar I disorder, most rec ent episode (or current) unspecified 11/22/2011 08/28/2013 Bipolar disorder 07/18/2011 11/01/2011 Major depression, recurrent 02/19/2010 11/22/2011 Overview (11/01/2011): R/o BPAD Anxiety Disorder, NOS; Socia l Anxiety, Panic Disorder and PTSD symptoms 02/19/2010 08/28/2013 Depressive disorder, not elsewhere classified 04/16/19 07 02/19/2010 Encounters Date Type Department Care Team Description 12/16/2023 4:03 PM CDT - 12/16/2023 5:33 PM CDT Emergency [address] [address] Hector Pond DO Bipolar affective disorder, currently manic, mild (HC) (Primary Dx) Discharge Disposition: Home Self Care 12/16/2023 Travel from Last 3 Months Immunizations Name [...] VACU Livin g Alana McInt yre Delivery Location:[facility] 2004 Term 37w 0d 2.38 kg (5 lb 4 oz) M VAGINA L VACU Livin g 9 9 Kristo pher McInt yre Delivery Location:[facility] 2006 SAB 10w 0d SPONTA NEOUS Demis e Delivery Location:[facility] Comments:D&C 2008 36w 5d 3.12 kg (6 lb 14 oz) F Vag Livin g 8 9 Makenz ie McInt yre Delivery Location:[facility] Last Filed Vital Signs Vital Sign Reading Time Taken Comments Blood Pressure 136/81 12/16/2023 4:09 PM CDT Pulse 124 12/16/2023 4:09 PM CDT Temperature 36.9 ??C (98.5 ??F) 12/16/2023 4:09 PM CD T Respiratory Rate 18 12/16/2023 4:09 PM CDT Oxygen Saturation 97% 12/16/2023 4:09 PM CDT Inhaled Oxygen Concentration - - Weight 72.6 kg (160 lb) 12/16/2023 4:09 PM CDT Height 170.2 cm (5' 7) 12/16/2023 4:09 PM CDT Body Mass Index 25.06 12/16/2023 4:09 PM CDT Plan of Treatment Health Maintenance Due Date Last Done Comments Hepatitis C screening for age 18-79 01/28/2000 BMI (ht and wt on same day) for age 18+ 06/30/2016 07/01/2015 Tetanus booster 11/03/2018 11/03/2008, 07/21/1997 Depression screening for age 12+ 06/09/2021 06/09/2020, 11/24/2019, 07/01/2015, Additional history exists COVID-19 vaccine series ( season) 2023 Influenza for age 9-49 12/02/2023 8, 01/30/2013, 12/25/2011, Additional history exists Pap test for age 21-65 08/09/2024 2, 08/09/2021, 08/04/2013, Additional history exists HIV for age 15-65 Completed 03/25/2008, 12/18/2006 Tdap Completed 11/03/2008 Pneumococcal series for age 6-64 Aged Out No longer eligible based on patient's age to complete this topic Procedures Procedure Name Priority Date/Time Associated Diagnosis Comments ETHANOL SERUM OR PLASMA STAT 12/16/2023 4:24 PM CDT TSH WITH REFLEX STAT 12/16/2023 4:24 PM CDT MAGNESIUM STAT 12/16/2023 4:24 PM CDT BASIC METABOLIC PANEL STAT 12/16/2023 4:24 PM CDT CBC W PLT NO DIFF STAT 12/16/2023 4:2 4 PM CDT HPV HIGH RISK Routine 08/09/2021 12:45 PM CDT ANTI HIV 1/2 Routine 03/25/2008 10:58 AM FILM FLAT INSPECTOR Supervision of Other Normal from Last 3 Months or Most Recently Relevant to Health Maintenance Results * TSH WITH REFLEX (12/16/2023 4:24 PM CDT) TSH 1.73 0.27 - 4.20 uIU/mL 12/16/2023 4:55 PM CDT [facility] Blood BLOOD SPECIMEN / Unknown Venipuncture / Unknown 12/16/2023 4:24 PM CDT 12/16/2023 4:27 PM CDT [facility] - 12/16/2023 4:55 PM CDT In Adults, TSH values between 5.00 and 10.00 uIU/ml do not necessarily indicate the presence of Hypothyroidism. Correlation with clinical findings such as presence of goiter and/or Thyroperoxidase (TPO) Antibody may be helpful. For more information please refer to ANDREAS 2004; 291: 228-238. Hector Pond DO CHEMISTRY [facility] [address] [place] [address] * CBC W PLT NO DIFF (12/16/2023 4:24 PM CDT) WHITE BLOOD COUNT 8.3 4.5 - 11.0 thou/cu mm 12/16/2023 4:31 PM CDT [facility] RED BLOOD COUNT 4.30 4.00 - 5.20 mil/cu mm 12/16/2023 4:31 PM T [facility] HEMOGLOBIN 14.2 12.0 - 16.0 g/dL 12/16/2023 4:31 PM T [facility] HEMATOCRIT 40.1 33.0 - 51.0 % 12/16/2023 4:31 PM [facility] MCV 93 80 - 100 fL 12/16/2023 4:31 PM T [facility] MCH 33.0 26.0 - 34.0 pg 12/16/2023 4:31 PM [facility] MCHC 35.4 32.0 - 36.0 g/dL 12/16/2023 4:31 PM T [facility] RDW 14.9 11.5 - 15.5 % 12/16/2023 4:31 PM CDT [facility] PLATELET COUNT 322 140 - 440 thou/cu mm 12/16/2023 4:31 PM CDT [facility] MPV 10.3 6.5 - 11.0 fL 12/16/2023 4:31 PM CDT [facility] Blood BLOOD SPECIMEN / Unknown Venipuncture / Unknown 12/16/2023 4:24 PM CDT 12/16/2023 4:27 PM CDT Hector Pond DO HEMATOLOGY [facility] [address] [place] [address] * ETHANOL SERUM OR PLASMA (12/16/2023 4:24 PM CDT) ETHANOL <0.010 <0.010 g/dL 12/16/2023 4:46 PM CDT [facility] Blood BLOOD SPECIMEN / Unknown Venipuncture / Unknown 12/16/2023 4:24 PM CDT 12/16/2023 4:27 PM CDT Hector Pond DO CHEMISTRY [facility] [address], [place] [id number] * MAGNESIUM (12/16/2023 4:24 PM CDT) MAGNESIUM 2.0 1.6 - 2.6 mg/dL 12/16/2023 4:55 PM CDT [facility] Blood BLOOD SPECIMEN / Unknown Venipuncture / Unknown 12/16/2023 4:24 PM CDT 12/16/2023 4:27 PM CDT Hector Pond DO CHEMISTRY [facility] [address], [place] [id number] * (ABNORMAL) BASIC METABOLIC PANEL (12/16/2023 4:24 PM CDT) SODIUM 141 136 - 145 mmol/L 12/16/2023 4:55 PM [facility] POTASSIUM 4.1 3.5 - 5.1 mmol/L 12/16/2023 4:55 PM [facility] CHLORIDE 107 98 - 107 mmol/L 12/16/2023 4:55 PM [facility] CO2,TOTAL 23 22 - 29 mmol/L 12/16/2023 4:55 PM [facility] ANION GAP 11 5 - 18 12/16/2023 4:55 PM [facility] GLUCOSE 101(H) 70 - 99 mg/dL 12/16/2023 4:55 PM [facility] CALCIUM 9.6 8.6 - 10.0 mg/dL 12/16/2023 4:55 PM [facility] BUN 10 6 - 20 mg/dL 12/16/2023 4:55 PM [facility] CREATININE 0.89 0.50 - 0.90 mg/dL 12/16/2023 4:55 PM [facility] BUN/CREAT RATIO 11 10 - 20 4:55 PM [facility] eGFR 84(L) >90 mL/min/1.7 3m2 12/16/2023 4:55 PM [facility] Comment:As of 2021, eG FR is calculated by the CKD-EPI creatinine equation without race adjustment. ??eGFR can be influenced by muscle mass, exercise, and diet. ??The reported eGFR is an estimation only and is only applicable if the renal function is stable. Blood BLOOD SPECIMEN / Unknown Venipuncture / Unknown 12/16/2023 4:24 PM CDT 12/16/2023 4:27 PM CDT Hector Pond DO CHEMISTRY [facility] [address] [place] [address] * HPV HIGH RISK (08/09/2021 12:45 PM CDT) TYPE 16 Negative Negative 08/11/2021 10:50 AM CDT [facility] TYPE 18 Negative Negative 08/11/2021 10:50 AM CDT [facility] OTHER HIGH RISK TYPES Negative Negative 08/11/2021 10:50 AM CDT [facility] Other (Cervical/Vagina l) 08/09/2021 12:45 PM CDT 08/10/2021 7:52 AM CDT Narrative [facility] - 08/11/2021 10:50 AM CDT HPV types 16, 18, 31, 33, 35, 39, 45, 51, 52, 56, 58, 59, 66 and 68 DNA were undetectable or below the pre-set threshold. Methodology: Valentino Anu 4800 HPV Test Willy Serrano MD MICROBIOLOGY [facility] [address] [place] [address], * ANTI HIV 1/2 (03/25/2008 10:58 AM FILM FLAT INSPECTOR) ANTI HIV 1/2 Non-reacti ve [facility] Blood specimen (specimen) BLOOD SPECIMEN / Unknown 03/25/2008 10:58 AM FILM FLAT INSPECTOR 03/25/2008 10:51 AM FILM FLAT INSPECTOR Willy Serrano MD SEND OUTS [facility] INTERNAL ZIP [address] [place] [address] from Last 3 Months or Most Recently [...] 9:46 PM 02/11/2018 4:44 PM Care Teams Drum Sander Setter Relationship Specialty Start Date End Date Willy Serrano MD [address] [place] [address] PCP - General Family Practice 03/30/21
--- OUTSIDE RECORDS SUMMARY | 2023-12-23 12:11 | XMS_ITS | Continuity of Care Document ---
Author Organization [facility] Address [address] [place] [address] Phone Care Team Providers Care Credit Assessment Analyst Name Role Phone Brodie Saldaña Unavailable [...] Available - Active Procedures Procedure Date Office/Outpatient Visit,[facility] 2020 Advance Directives Directive Yes / No Effective Date File Name No Information Encounters Encounter Description Practice Location Reason(s) For Visit Diagnoses Date Provider Providers Copied on Encounter [facility], [address], [place], [place], [id number], tel:[phone] [facility] No Information Devante Calloway. [facility], [address], [facility] [place], [id number], [place]. tel:[phone] Office/Outpat ient Visit,New, [facility], [address], [place], [place], [id number], [place] tel:[phone] [facility] Low back pain Devante Calloway. [facility], [address], [place], [place], [id number], [place]. tel:[phone] Referring Provider: Konstantin Terrell, [address], [address]. tel:[phone] Family History Family Member Type Diagnosis Age At Onset No Information Payers Payer name Insurance type Covered libertarian ID Viet ortega(s) [facility] [id number] [facility] [id number] Social History Type Description Quantity Date Captured [...]
== END 2023-12-23 12:11 | disposition home or self-care (01) ==
PROVIDERS: Emergency Provider Emergency Medicine; PCP Family Medicine
DX: M25.512 Pain in left shoulder (principal)
CPT/HCPCS: 99282; 99283

== ENCOUNTER 2024-05-30 12:23 | Outpatient (CLI) | payer BC, SELFPAY ==
[2024-05-30 14:27] LABS: Clue Cells No Clue Cells Seen (None Seen); Trichomonas No Trichomonas Seen (None Seen); Yeast No Yeast Seen (None Seen)
[2024-05-30 15:26] LABS: Chlamydia DNA Amplified* NOT DETECTED (No Detected); GC DNA Amplified* NOT DETECTED (No Detected)
[2024-06-01 01:30] LABS: HPV Source Cervical; HPV, High Risk by TMA Detected
[2024-06-02 11:47] LABS: HPV Genotype 16 by TMA Not Detected; HPV Genotype 18/45 by TMA Not Detected; HPVG Source Cervical
[2024-06-10 14:45] LABS: Pap Test Reviewed by Path Done
== END 2024-05-30 12:24 | disposition home or self-care (01) ==
PROVIDERS: PCP Family Medicine; Visit Provider Family Medicine
DX: Q62.6 Malposition of ureter (principal); N89.8 Other specified noninflammatory disorders of vagina; Z11.51 Encounter for screening for human papillomavirus (HPV); Z12.4 Encounter for screening for malignant neoplasm of cervix; Z11.3 Encounter for screening for infections with a predominantly sexual mode of transmission
CPT/HCPCS: 87210; 87491; 87591; 87624; 87625; 88141; 88142

== ENCOUNTER 2024-07-03 13:13 | Emergency (ER) | payer BC, SELFPAY ==
--- OUTSIDE RECORDS SUMMARY | 2024-07-03 13:17 | XMS_ITS | Clinical Summary ---
Author Organization [facility] Address [address] [place] [address] Care Team Providers Care Diamond Setter Name Role Phone Willy Serrano MD Primary Care Provider + Allergies Active Allergy Reactions Criticality Noted Date Comments Piroxicam Stomatitis,Rash 10/10/2006 Latex Rash 03/08/2006 Other reaction(s): Other (see comments) Eszopiclone Nausea And Vomiting 05/04/2014 Morphine GI Upset 10/12/2008 Pt passes out Other reaction(s): GI intolerance Naproxen Contact Dermatitis 03/08/2006 Naproxen Sodium Other - Describe In Comment Field 01/23/2011 Medications levonorgestrel intrauterine device (MIRENA) 20 mcg/24 hours (5 yrs) 52 mg IUD Inject 1 Each intrauterine one time. Active pantoprazole (PROTONIX) 40 mg delayed-release tabletIndications: Gastro-esophageal reflux disease without esophagitis Take 1 tablet by mouth 2 times daily before meals. 90 tablet 3 11/14/19 20 Active metroNIDAZOLE 0.75% vaginal (METROGEL) 0.75 % [...] hours if needed for Nausea/Vomiting. 8 Tablet 02/23/20 22 Active oxyCODONE (ROXICODONE) 5 mg immediate release tabletIndications: Acute pain of left shoulder Take 1 Tablet (5 mg) by mouth every 6 hours if needed for Pain. 3 Tablet 07/22/19 24 Active phenazopyridine (PYRIDIUM) 200 mg tabletIndications: Dysuria Take 1 Tablet (200 mg) by mouth three times daily after meals. 6 Tablet 08/27/19 24 Active rx LORazepam (ATIVAN) 0.5 mg tablet (ED DC MED)Indications:Bi polar affective disorder, currently manic, mild (HC) Take 2 Tablets (1 mg) by mouth at bedtime if needed, may repeat once (insomnia/anca). 4 Tablet 12/16/19 24 Active Active Problems Problem Noted Date Diagnosed [...] Encounters Date Type Department Care Team Description 06/23/2024 Lab Requisition [facility] [phone] Sharmila Ram MD from Last 3 Months Immunizations Immunization Administration Dates Next Due Human Papilloma Virus [...] oz pur e alcohol) sober 18 months Interpersonal Safety Answer Date Record ed Are you being hit, kicked, p ushed or yelled at (see row info)? 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 Not on file Not on file Obstetrics History Para Term AB IAB SAB Ectopic Multiple Livin g Live Births 4 3 2 1 1 0 1 0 0 3 3 Date Outcome GA Total Labor Labor/2nd/3rd Weight Sex Type Anes PTL Steffany A1 A5 Name Clin 2001 Term 38w 0d 3.29 kg (7 lb 4 oz) F VAGINA L VACU Livin g Alana McInt yre Delivery Location:[facility] 2004 Term 37w 0d 2.38 kg (5 lb 4 oz) M VAGINA L VACU Livin g 9 9 Kristo pher McInt yre Delivery Location:[facility] 2006 SAB 10w 0d SPONTA NEOUS Demis e Delivery Location:[facility] Comments:D&C 2008 36w 5d 3.12 kg (6 lb 14 oz) F Vag Livin g 8 9 Makenz ie McInt yre Delivery Location:[facility] Last Filed Vital Signs Vital Sign Reading Time Taken Comments Blood Pressure 136/81 12/16/2023 4:09 PM CDT Pulse 124 12/16/2023 4:09 PM CDT Temperature 36.9 C (98.5 F) 12/16/2023 4:09 PM CDT Respiratory Rate 18 12/16/2023 4:09 PM CDT Oxygen Saturation 97% 12/16/2023 4:09 PM CDT Inhaled Oxygen Concentration - - Weight 72.6 kg (160 lb) 12/16/2023 4:09 PM CDT Height 170.2 cm (5' 7) 12/16/2023 4:09 PM CDT Body Mass Index 25.06 12/16/2023 4:09 PM CDT Plan of Treatment Health Maintenance Due Date Last Done Comments COVID-19 vaccine series (#1) 1987 Hepatitis C screening for ag e 18-79 01/28/2000 Pneumococcal series for age 6-49 (1 of 2 - PCV) 2001 BMI (ht and wt on same day) for age 18+ 06/30/2016 07/01/2015 Tetanus booster 11/03/2018 11/03/2008, 07/21/1997 Depression screening for age 12+ 06/09/2021 06/09/2020, 11/24/2019, 07/01/2015, Additional history exists Pap test for age 21-65 08/09/2024 , 08/09/2021, 08/04/2013, Additional history exists Influenza Vaccine (Season Ended) 2024 12/31/2017, 01/30/2013, 12/25/2011, Additional history exists HIV for age 15-65 Completed 03/25/2008, 12/18/2006 Tdap Completed 11/03/2008 Procedures Procedure Name Priority Date/Time Associated Diagnosis Comments LAB TRACKING EVENT Routine 06/20/2024 2: 55 PM CDT PATH TISSUE EXAM Routine 06/20/2024 2:55 PM CDT HPV HIGH RISK Routine 08/09/2021 12:45 PM CDT ANTI HIV 1/2 Routine 03/25/2008 10:58 AM CARTON MACHINE OPERATOR Supervision of Other Normal (HC) from Last 3 Months or Most Recently Relevant to Health Maintenance Results * LAB TRACKING EVENT (06/20/2024 2:55 PM CDT) Other (Other) Client Collect / Unknown 06/20/2024 2:55 PM CDT 06/23/2024 1:10 PM CDT Sharmila Ram MD LAB BILL ONLY Final Resu lt [facility] [address] [place] [address], * PATH TISSUE EXAM (06/20/2024 2:55 PM CDT) Case Report Pathology Report Case: [id number] Authorizing Provider: Sharmila Ram MD Collected: 06/20/2024 1455 Ordering Location: [facility] Received: 06/23/2024 1356 Pathologist: Rahel Chauhan MD Specimens: A) - Cervical Biopsy, 3 o'clock B) - Endocervical Curettings 06/24/2024 2:15 PM CDT [facility] Timbre [facility] Final Diagnosis A) CERVIX, 3 O'CLOCK, BIOPSY: 1. Benign cervical mucosa a. Sampling: Ectocervix and endocervix b. Transformation zone: Partially visualized 2. Negative for glandular neoplasia, squamous intraepithelial lesion, and malignancy B) ENDOCERVIX, CURETTAGE: 1. Focal squamous atypia suggestive of, but not definitively diagnostic for, low grade squamous intraepithelial lesion (ASHLYN 1) 2. Sampling: Ectocervix and endocervix 3. Negative for glandular neoplasia, high grade intraepithelial lesion, and invasive carcinoma 06/24/2024 2:15 PM CDT [facility] Timbre [facility] at 1415 CDT Clinical Information LSIL Pap, positive high-risk HPV non-16/18. Has Mirena IUD. 06/24/2024 2:15 PM CDT [facility] Timbre [facility] Gross Description A) Received in formalin, labeled with the patient's name and 3:00, is a single díaz mucosal fragment measuring 0.5 cm. The specimen is submitted in toto in one cassette. B) Received in formalin, labeled with the patient's name and ECC, is a 2.8 x 0.5 x 0.1 cm aggregate of blood tinged mucous. The specimen is entirely submitted in 1 cassette. SJM 06/23/2024 06/24/2024 2:15 PM CDT [facility] Microscopic Description The final diagnosis is based on microscopic examination of appropriate sections of all specimens. 06/24/2024 2:15 PM CDT [facility] Additional Information Interpreted at [facility] - [address], [place] [address] 06/24/2024 2:15 PM CDT [facility] Other (Cervical Biopsy) 06/20/2024 2:55 PM CDT 06/23/2024 1:56 PM CDT Specimen (specimen) (Endocervical Curettings) 06/20/2024 2:55 PM CDT 06/23/2024 1:56 PM CDT us Sharmila Ram MD PATHOLOGY/CYTOLOGY Final R esult Performing Organization Address City/[facility]/ZIP Co de Phone Number [facility] [address] [place] [address], * HPV HIGH RISK (08/09/2021 12:45 PM CDT) TYPE 16 Negative Negative 08/11/2021 10:50 AM CDT [facility] TYPE 18 Negative Negative 08/11/2021 10:50 AM CDT [facility] OTHER HIGH RISK TYPES Negative Negative 08/11/2021 10:50 AM CDT [facility] Other (Cervical/Vagina l) 08/09/2021 12:45 PM CDT 08/10/2021 7:52 AM CDT Narrative [facility] - 08/11/2021 10:50 AM CDT HPV types 16, 18, 31, 33, 35, 39, 45, 51, 52, 56, 58, 59, 66 and 68 DNA were undetectable or below the pre-set threshold. Methodology: [employer] 4800 HPV Test us Willy Serrano MD MICROBIOLOGY Final Re sult [facility] [address] [place] [address], * ANTI HIV 1/2 (03/25/2008 10:58 AM CARTON MACHINE OPERATOR) ANTI HIV 1/2 Non-reacti ve [facility] Blood specimen (specimen) BLOOD SPECIMEN / Unknown 03/25/2008 10:58 AM CARTON MACHINE OPERATOR 03/25/2008 10:51 AM CARTON MACHINE OPERATOR us Willy Serrano MD SEND OUTS Final Re sult [facility] INTERNAL ZIP [address] [address] from Last 3 Months or Most Recently Relevant to Health Maintenance Insurance [employer] [facility] Advance Directives * Full Code (Latest Code [...] 9:46 PM 02/11/2018 4:44 PM Care Teams Diamond Setter Relationship Specialty Start Date End Date Willy Serrano MD [address] [place] [id number] PCP - General Family Practice 03/30/21
--- OUTSIDE RECORDS SUMMARY | 2024-07-03 13:17 | XMS_ITS | Data Portability ---
Author Organization [facility], [facility] Address [address] [place] [address] Care Team Providers Care Payroll Tax Specialist Name Role Phone STEPHANIE CARDOSO Primary Care Provider [phone] Assessment No assessment recorded. Plan of Treatment Reminders Order Date Submit Date Provider Last Modified By Organization Details Last Modified Time Details Appointments None recorded. Lab urinalysis , dipstick 2021 022 mgustafso n11 [facility], [address] [place], [address], 12:41:59 Referral pelvic floor therapy referral 2021 022 francesca Not available 07:38:19 Procedures None recorded. Surgeries None recorded. Imaging None recorded. Medication Orders Ditropan XL 10 mg tablet,ext ended release 2021 [facility], [place], [place], [address] [place], [address], 12:42:01 Patient TargetsNo targets recorded. Patient Instructions Encounter Date Encounter Id Patient Instructions Last Modified By Organization Details Last Modified Time 12/13/2021 [id number] Treatment option s for Overactive Bladder, including [...] mouth/constipatio n most commonly, or a newer Kixu-2-kiekdyj medication, Mybetriq & Gemtesa). I have suggested looking into insurance coverage for medication, as some medications are not initially covered well under some plans. [email or web address] Not available 12/13/2021 12:45:50 Reason for Referral Pelvic Floor Therapy Referra l for Urge incontinence of urine Referring Physician: Noemi Friedman, Urology, Encounter Date: 12/13/2021 Results Created Date Observation Date Name Description Value Unit Range Abnormal Flag Note LastModifiedBy Organization Detail LastModifiedTime 12/14/19 22 12/13/2021 urina lysis , dipst ick Color-Status Yellow Not Available [facility] [address], [place], [address], 12/13/2021 12:14:41 12/14/19 22 12/13/2021 urina lysis , dipst ick Clarity-Stat us Clear Not Available [facility] [address], [place], [address], 12/13/2021 12:14:41 12/14/19 22 12/13/2021 urina lysis , dipst ick pH-Status 5.5 Not Available [facility] [address], [place], [address], 12/13/2021 12:14:41 12/14/19 22 12/13/2021 bladd er scan (PROC ) No observ ation record ed. BARCODE Not Available 2021 16:51:36 Result Notes None recorded. Procedures Surgical History Date Name Laterality Status Provider Name and Address Organization Details Recorded Time 2 Bladder Scan completed Earlene Cohen [facility] 12/13/2021 12:14:38 9 Colonoscopy completed Earlene Cohen [facility] 12/13/2021 12:13:24 Hernia Repair completed Earlene Cohen [facility] 12/13/2021 12:13:34 Imaging Results Imaging Date Name Status LastModified by Organiz [facility] Details LastModified Time 12/13/2021 bladder scan (PROC) completed BARCODE Information not available 12/13/2021 16:51:36 Procedure Notes None recorded. Medical Equipment None Reported. Allergies Allergen ID Allergen Name Allergen Category Reaction Reaction Severity Criticality Documentation Date Start Date Code Code System Note Provider Name and Address Organization Details Recorded Time 996875 latex environme nt,medica tion Not available Not available Not available 12/13/2021 46499 91 RxNorm Not Available Not Available Not Available 292009 naproxen medicatio n Not available Not available Not available 12/13/2021 7258 RxNorm Not Available Not Available Not Available Medications Name Sig Start Date Stop Date [...] Available Not Available No t Available cholecalcif laltio (vitamin D3) 125 mcg (5,000 unit) capsule [...] Not Available Tri-Lo-Spri ntec 0.18 mg/0.215 mg/0.25 mg-0.025 mg tablet TAKE ONE TABLET BY MOUTH EVERY DAY 12/13 completed Not Available Not Available Not Available Latuda 20 mg tablet TAKE ONE TABLET BY MOUTH EVERY DAY 12/13 completed Not Available Not Available Not Available Vitals Date Recorded Body height Body mass index (BMI) Body weight Provider Name and Address Organization Details Last Updated DateTime 12/13/2021 167.64 cm 30.7 kg/m2 95054.[address] [facility] 12/13/2021 12:05:12 Social History Question Answer Notes LastModified by Organizat ion Details LastModified Time Tobacco Smoking Status Current Every Day Smoker Earlene beck, [facility] 12/13/2021 12:13:10 What Was The Date [...] Unspecified Relation Family history of renal stone domingo Not available 12/01 12:12:48 Medical History Condition Response Diabetes N Sexually Transmitted Infection N Bleeding Disorder N Other N High Blood Pressure N Kidney Stones N Cancer N Lung Disease N Depression Y High Cholesterol Y GERD/Acid Reflux Y Heart Disease N Gynecological HistoryNo gynecological history recorded. Obstetrics History GPAL:G 0 P 0 0 0 0 Past Encounters Encounter ID Performer Location Encounter Start Date Encounter Closed Date Diagnosis/Indication Diagnosis SNOMED-CT Code Diagnosis ICD10 Code Diagnosis Note [id number] DENNIS GRIFFIN [facility] [address] [place] [address] 12/13/2021 11:37:46 12/16/2021 14:14:27 Female stress incontinence 08614549 N39.3 Mild stress incontinen ce, positive stress testWill address her OAB sx first, option for further interventi on in future if desiredPel doris PT referral sent Urge incon tinence of urine 42209434 N39.41 Discussed first and second line OAB management Refer to pelvic PTTrial of ditropan 10mg XL next (she does recall having side effects on a different anticholin ergic in the past), also given samples of myrbetriq 50mg to trial after this or if side effects and unable to continue the ditropanPl an to f/u 2-3mo for recheck Health Concerns Section Related Observation LastModified by Organization Detai ls LastModified Time None Recorded Concern Status LastModified by Organization Details LastModified Time None Recorded Advance Directives Directive None Recorded Payers Encounter Date Sequence Insurance Name Policy Number Policy Caldwell Covered Member ID Caldwell Member ID Guarantor Name 12/13/2021 1 [place] [id number] Marlin Plummer [id number] Marlin Plummer 12/13/2021 2 [employer] - DOS PRIOR TO 2022 (MEDICAID REPLACEMENT - HMO) [id number] Marlin Plummer [id number] Marlin Plummer Notes Date Note Type Note Provider Name and Address Organization Details Recorded Time 2 text/html 41yo female here today for evaluation of [...] dry mouth. Frequency 12x per day, every hournocturia 4-5xpersistent leakage throughout the day-- using 5 pads per day Medical hx: IBS, diverticulitisSurgical hx: hernia repair, vaginal deliveries [id number] hx: breast cancer, kidney stonesSocial hx: current daily smoker UA negativePVR 59ccExam with grade 1 cystocele, positive stress test DENNIS GRIFFIN [address] [place] [address],[address], [place], [address], [facility] 12/13/2021 12:48:04 OBGyn Episode No OBEpisode recorded.
--- OUTSIDE RECORDS SUMMARY | 2024-07-03 13:17 | XMS_ITS | Clinical Summary ---
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 Wanderfly Allergies Active Allergy Reactions Criticality Noted Date Comments Eszopiclone Nausea And Vomiting 05/04/2014 Piroxicam Hives High 05/20/2020 Latex Hives High 05/20/2020 Morphine Unknown 05/20/2020 Naproxen Unknown 05/20/2020 Medications acamprosate (CAMPRAL) 333 MG tablet 0 Active divalproex (DEPAKOTE ER) 500 MG 24 hour release tablet Take 1,000 mg by mouth two times a day. 1 Active escitalopram (LEXAPRO) 10 MG tablet TAKE ONE-HALF TABLET BY MOUTH EVERY DAY FOR 6 DAYS THEN TAKE ONE TABLET BY MOUTH EVERY DAY 1 Active gabapentin (NEURONTIN) 600 MG tablet Take 1,200 mg by mouth three times a day. 1 Active gemfibrozil (LOPID) 600 MG tablet 1 Active hydrOXYzine HCl (ATARAX) 25 MG tablet Take 25 mg by mouth two times daily as needed. 1 Active hyoscyamine (LEVBID) 0.375 MG 12 hour release tablet Take 375 mcg by mouth every 12 hours. 1 Active metroNIDAZOLE (METROGEL) 0.75 % gel 0 Active minocycline (MINOCIN) 100 MG capsule Take 100 mg by mouth two times a day. 1 Active omeprazole (PRILOSEC) 20 MG capsule 0 Active ondansetron (ZOFRAN-ODT) 8 MG disintegrating tablet DISSOLVE ONE TABLET ON THE TONGUE THREE TIMES A DAY NEEDED FOR NAUSEA / VOMITING 1 Active pantoprazole (PROTONIX) 40 MG tablet Take 40 mg by mouth two times a day before meals. 1 Active XIFAXAN 550 MG tablet 1 Active risperiDONE (RISPERDAL) 1 MG tablet Take 1 mg by mouth daily. 1 Active risperiDONE (RISPERDAL) 2 MG tablet Take 2 mg by mouth every evening. 1 Active spironolactone (ALDACTONE) 50 MG tablet Take 50 mg by mouth daily. 1 Active celecoxib (CELEBREX) 200 MG capsuleIndications: Rheumatoid arthritis, involving unspecified site, unspecified whether rheumatoid factor present (HRC),Arthralgia, unspecified joint,Chronic pain syndrome Take 1 Capsule by mouth two times daily as needed for Pain. 60 Capsule 5 1 Active Active Problems Problem Noted Date Diagnosed [...] (05/20/2020): Environmental Allergies Rheumatoid arthritis 05/03/1985 Immunizations Immunization Administration Dates Next Due 4vHPV (Gardasil) 06/21/2006,03/08/2006 DTaP 11/03/2008 Flu Vac (3+ yrs) 01/30/2013, 2,03/06/2011,2007 Flu Vac Preserv Free (3+yrs) 02/04/2010 [id number] 02/26/2009 Influenza D9N1-68 02/26/2009 Influenza IIV4 (Quadrivalent ) 0.5mL (55685) 01/29/2019,12/18/2017 Influenza, Unspecified Formulation 12/31,12/18/2016,03/08/2016,2010,03/25/2008 MMR 04/02/1994 PPSV23 (Pneumovax) 12/01/2012 Td (7+ yrs) 07/21/1997 Tdap 09/01/2019,11/03/2008 Social History Tobacco Use Types Packs/Day Years Used Date Smoking Tobacco: Every Day Comments Unknown Sex and Gender Information Value Date Recorded Sex Assigned at Not on file Legal Sex Female 2:58 PM FUND MANAGER Gender Identity Not on file Sexual Orientation Not on file Last Filed Vital Signs Vital Sign Reading Time Taken Comments Blood Pressure 127/72 05/20/2020 10:45 AM FUND MANAGER Pulse 83 05/20/2020 10:45 AM FUND MANAGER Temperature 37.1 C (98.8 F) 05/20/2020 10:45 AM FUND MANAGER Respiratory Rate - - Oxygen Saturation - - Inhaled Oxygen Concentration - - Weight 79.8 kg (176 lb) 05/20/2020 10:45 AM FUND MANAGER Height 167.6 cm (5' 6) 05/20/2020 10:45 AM FUND MANAGER Body Mass Index 28.41 05/20/2020 10:45 AM FUND MANAGER Plan of Treatment Health Maintenance Due Date Last Done Comments Cervical Cancer Screening Due 1982 Hep C Screening (Preventive Services) 1982 Mammogram 1982 Adult Preventive Visit 01/28/2000 HepB (1) 2001 HPV Vaccine (3 - 3-dose series) 09/13/2006 06/21/2006, 03/08/2006 Pneumococcal (2 of 2 - PCV) 12/01/2013 12/01/2012 COVID-19 Vaccine ( - season) 2023 Influenza (#1) 2023 01/29/2019, 1004/2017, 12/18/2017, Additional history exists DTaP/Tdap/Td (5 - [...] on patient's age to complete this topic Meningococcal B Aged Out No longer el igible based on patient's age to complete this [...] Negative (Non Reactive) 07/12/2021 10:18 PM CDT [facility] Comment:HIV-1 p24 Antigen an d HIV-1/HIV-2 Antibody not detected Blood Venipuncture / Unknown 07/12/2021 4:17 PM CDT 07/12/2021 4:17 PM CDT us Aki Jarquin MD LAB_1 Final Resul t [facility] [address] [place] [address], [facility] from Last 3 Months or Most Recently Relevant to Health Maintenance Insurance [id number] Care Teams Fresh Foods Cake Decorator Relationship Specialty Start Date End Date Needs Pcp, [place], [place] [address] PCP - General 05/20/20
--- OUTSIDE RECORDS SUMMARY | 2024-07-03 13:17 | XMS_ITS | Data Portability ---
Author Organization [facility] Address [address] [place] [address] Assessment Encounter Date Assessment Date Assessment LastModified by Organization Details LastModified Time 12/30/2018 12/30/2018 The above findings do not support the presence of decompensated illness that would preclude the patient from participation in inpatient chemical dependence treatment. Based on patient history and the above findings, there is no evidence of communicable disease at this time. [email or web address] Not available 12/30/2018 11:57:45 Plan of Treatment Reminders Order Date Submit Date Provider Last Modified By Organization Details Last Modified Time Details Appointments None record ed. Lab None record ed. Referral None record ed. Procedures None record ed. Surgeries None record ed. Imaging None record ed. Medication Orders None record ed. Patient TargetsNo targets recorded. Patient Instructions Encounter Date Encounter Id Patient Instructions Last Modified By Organization Details Last Modified Time 12/30/2018 [id number] Patient to iqrao w up with primary care/psychiatrist post discharge from treatment [email or web address] Not available 12/30/2018 12:26:52 Reason for Referral None Reported. Problems Name Problem SNOMED Code Status Onset Date Resolution Date Notes Provider Name and Address Organization Details Recorded Time Bipolar I disorder 963270846 Active Yi Alcala null, [place] - [facility] 11:47:13 Posttrauma tic stress disorder 20016636 Active Yidevi [place], [place] - [facility] 11:47:20 Generalize d anxiety disorder 05940236 Active Iydevi [place], [place] - [facility] 11:47:35 Fibromyalg ia 657025627 Active Yidevi [place], [place] - [facility] 11:47:45 Arthritis 0165053 Active Rheumatoid Yi Alcala null, [place] - [facility] 11:48:05 Borderline personalit y disorder 74294043 Active [facility] Read - [facility] 11:48:21 Cigarette smoker 11527994 Active [facility] Read - [facility] 12:09:20 Problem Notes None recorded. Procedures Surgical History Date Name Laterality Status Provider Name and Address Organization Details Recorded Time procedure on ankle completed Yi LANDRY - [facility] 12/30/2018 12:09:42 Imaging Results None recorded. Procedure Notes None recorded. Medical Equipment None Reported. Allergies Allergen ID Allergen Name Allergen Category Reaction Reaction Severity Criticality Documentation Date Start Date Code Code System Note Provider Name and Address Organization Details Recorded Time 16032 latex environme nt,medica tion rash Not available Not available 12/30/2018 88878 91 RxNorm Not Available Not Available Not Available 76868 naproxen medicatio n Not available Not available Not available 12/30/2018 7258 RxNorm Water blist ers Not Available Not Available Not Available 93283 morphine medicatio n vomiting Not available Not available 12/30/2018 7052 RxNorm Not Available Not Available Not Available Medications Name Sig Start Date Stop Date Status Note LastModified by Organization Details LastModified Time lamotrigin e 200 mg tablet Take 1 tablet twice a day by oral route. active Not Available Not Available No t Available trazodone 50 mg tablet active Not Available Not Available Not Available fluconazol e 150 mg tablet TAKE 1 TABLET (150 MG) BY ORAL ROUTE EVERY 3RD DAY PRN- REPEAT IN 3 DAYS PRN active Not Available Not Available No t Available minocyclin e 100 mg capsule active Not Available Not Available Not Available metronidaz ole 0.75 % (37.5 mg/5 gram) vaginal gel Insert 1 applicato rful every day by vaginal route. active Not Available Not Available No t Available olanzapine 10 mg tablet Take 1 tablet every day by oral route. active Not Available Not Available No t Available lithium carbonate ER 300 mg tablet,ext ended release active Not Available Not Available Not Available propranolo l 10 mg tablet TAKE 1/2 TO 1 TABLETS (5-10MG) BY ORAL ROUTE PO DAILY PRN active Not Available Not Available No t Available lithium carbonate 300 mg capsule active Not Available Not Available Not Available pantoprazo le 40 mg tablet,del ayed release Take 1 tablet every day by oral route in the morning. active Before breakfast Not Available Not Available Not Available olanzapine 15 mg tablet active Not Available Not Available Not Available estradiol 0.01% (0.1 mg/gram) vaginal cream active Not Available Not Available Not Available lithium carbonate 300 mg tablet Take 4 tablets every day by oral route at bedtime. active Not Available Not Available No t Available lamotrigin e 100 mg tablet active Not Available Not Available Not Available spironolac tone 50 mg tablet active Not Available Not Available Not Available Vitals Date Recorded Body temperature Body height Body mass index (BMI) Body weight Heart rate Oxygen saturation Oxygen saturation in Arterial blood by Pulse oximetry Respiratory rate Systolic blood pressure Diastolic blood pressure Provider Name and Address Organization Details Last Updated DateTime 9 98.6 [degF] 167.64 cm 33.1 kg/m2 78360.4 4 g 83 /min 96 % 96 % 14 /min 114 mm[Hg] 82 mm[Hg] Yi Alcala [place] - [facility] 11:56:37 Social History Question Answer Notes LastModified by Organizat ion Details LastModified Time Tobacco Smoking Status Current Every Day Smoker Yi beck, [place] - [facility] 12/30/2018 11:49:39 What Is Your Level Of Alcohol Consumption? Heavy Last Drink: 12/16/2018 Amount: Liter Of Rum Daily X 2 Months. Information not available 12/30/2018 What Is Your Level Of Caffeine Consumption? Moderate [email or web address] Information not available 12/30/2018 Are You Currently Employed? Yes [email or web address] Information not available 12/30/2018 What Type Of Diet Are You Following? REGULAR [email or web address] Information not available 12/30/2018 Which Illicit Or Recreational Drugs Have You Used? Denies [email or web address] Information not available 12/30/2018 Do You Or Have You Ever Used E-cigarettes Or Vape? 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 Advance Directive (scan In Chart) No [email or web address] Information not available 12/30/2018 2h. Tobacco Use Yes [email or web address] Informati on not available 12/30/2018 1.A. Medical Power Of Landscape Technician (scan In Chart) No [email or web address] Information not available 12/30/2018 What Was The Date Of Your Most Recent Tobacco Screening? 12/30/2018 Information not available 12/31/2018 Are You Sexually Active? Yes Male; 1 Partner Last STD Testin12/2018 [email or web address] Information not available 12/30/2018 Do You Or Have You Ever Used Smokeless Tobacco? Never Used Smokeless Tobacco [email or web address] Information not available 12/30/2018 How Much Tobacco Do You Smoke? 1 PPD 1 PPD X 20 Years [email or web address] Information not available 12/30/2018 General Stress Level High [email or web address] Information not available 12/30/2018 Sex: Female Functional Status Question Answer Note LastModified by Organization D etails LastModified Time Are you able to walk? YESWOREST [email or web address] Information not available 12/30/2018 Are you able to care for yourself? Yes [email or web address] Information not available 12/30/2018 Mental Status None recorded. Family History Relationship Description Onset Age of this Age Resolved Age Notes LastModified by Organization Details LastModified Time Mother Malignant tumor of breast [email or web address] Not available 12/30 11:48:39 Mother Malignant tumor of colon [email or web address] Not available 12/30 11:48:58 Mother Diabetes mellitus [email or web address] Not available 12/30 11:49:06 Father Malignant tumor of thyroid gland [email or web address] Not available 12/30 11:48:51 Father Hypertensive disorder [email or web address] Not available 12/30 11:49:18 Medical History No medical history recorded. Gynecological HistoryNo gynecological history recorded. Obstetrics History GPAL:G 0 P 0 0 0 0 Past Encounters Encounter ID Performer Location Encounter Start Date Encounter Closed Date Diagnosis/Indication Diagnosis SNOMED-CT Code Diagnosis ICD10 Code Diagnosis Note [id number] [facility] [address] [place] [address] 12/30/2018 11:45:06 12/31/2018 15:23:21 Tobacco dependence syndrome 12455735 F17.210 Counseled on the importance of quitting {{smoking* chewing/d ipping}} tobacco. Patient is at the {{pre-cont emplation* contempla tion prepa ration act ion mainte nance}} stage of change. {{Not ready* Tresckow dy}} to quit. {{Did not discuss* D iscussed}} pharmacolo gic and non-pharma cologic methods of quitting. Patient {{opts for try nicotine gum opts for try nicotine lozenges o pts to try nicotine patches op ts to try nicotine gum and patches op ts to try nicotine lozenges and patches is encouraged to call 1-800QUIT -NOW for free tobacco cessation support and resources* }}. Follow-up with Bert as needed for support. Alcohol dependence 15872 003 F10.20 Currently inpatient for substance abuse treatment at {{[facility]# }}. Very optimistic about recovery, sobriety, and getting healthy. Planned discharge date of {{unknown # }}, subject to change. 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 Also recommend {{in-house psychiatry referral* psychiatry referral to be arranged by facility staff foll ow-up with patient's current establishe d psychiatri st}}. Health Concerns Section Related Observation LastModified by Organization Detai ls LastModified Time None Recorded Concern Status LastModified by Organization Details LastModified Time None Recorded Advance Directives Directive None Recorded Payers Encounter Date Sequence Insurance Name Policy Number Policy Caldwell Covered Member ID Caldwell Member ID Guarantor Name 12/30/2018 1 [place] [id number] Sarbjit Plummer [id number] Marlin Plummer Notes Date Note Type Note Provider Name and Address Organization Details Recorded Time 12/30/2018 text/html Presents for H+P as required for admission to a chemical dependence treatment program for {{alcohol* benzod iazepine heroin i nhalant marijuana methamphetamine polysubstance pre scription opioid}} abuse. Last use {{12/22/18# }}. Mode of delivery is {{ingested* inhal ed injected smoke d snorted}}.{{Robe ires Declines*}} STI and bloodborne pathogen testing. Was last tested {{12/27/18# }}.To bacco use {{yes* no}} {{chewing tobacco e-cig 1PP W 1/4PPD 1/2PPD 1 PPD* 1.5PPD 2PPD} }. {{Not ready to quit at this time, would like to conquer one addiction at a time* Not ready to quit now, but might be interested in quitting in the near future Is interested in getting help quitting at this time}}. Denies any acute health concerns/ Asisat [facility] [place] - [facility] 12/30/2018 12:27:11 OBGyn Episode No OBEpisode recorded.
[2024-07-03 13:27] VITALS: BP 122/73; PULSE 86; RESP 16; TEMP 36.7; O2SAT 98; BMI 23.5
--- NOTE | 2024-07-03 13:39 | CRLHL7_ITS ---
For Patients: As a result of the Century Cures Act, medical imaging exams and procedure reports are released immediately into your electronic medical record. You may view this report before your referring provider. If you have questions, please contact your health care provider. INDICATION: Memory changes, lower extremity paresthesias, weakness. TECHNIQUE: Noncontrast CT of the head with multiplanar reconstruction utilizing bone and soft tissue algorithms. COMPARISON: CT head dated 03/19/2023. FINDINGS: No acute intracranial hemorrhage. The rodriguez-white matter interface is preserved. The ventricles are normal and unchanged in size. No abnormal extra-axial fluid collection is identified. The calvarium is intact. The globes are symmetric. The imaged paranasal sinuses and mastoid air cells are clear. IMPRESSION: No acute intracranial abnormality. Please note that all CT scans at this facility use dose modulation, iterative reconstruction, and/or weight-based dosing when appropriate to reduce radiation dose to as low as reasonably achievable. Dictated by Audi Luz MD @ 07/03/2024 2:35:28 PM (Electronically Signed)
--- NOTE | 2024-07-03 13:39 | CRLHL7_ITS ---
For Patients: As a result of the Century Cures Act, medical imaging exams and procedure reports are released immediately into your electronic medical record. You may view this report before your referring provider. If you have questions, please contact your health care provider. Indication: Chest pain Technique: Chest 1 view Comparison: None Findings/Impression: Cardiovascular and mediastinum: Heart size and vasculature are normal in caliber and appearance. Lungs and pleural space: Lungs are clear. No sign of infiltrate or mass. No sign of pleural effusion. No pneumothorax. Bones and soft tissues: No acute findings. Dictated by Angel Rodriguez MD @ 07/03/2024 2:30:29 PM (Electronically Signed)
--- NOTE | 2024-07-03 13:43 | ED_ITS ---
HPI - General Adult General Date Seen: 07/03/24 Chief complaint: Unspecified Complaint, Adult Stated complaint: dizzy, joint pain, nausea, tingling legs, weak Time Seen by Provider: 07/03/24 13:33 History of Present Illness HPI narrative: Patient is a 44-year-old woman with medical history notable for depression, asthma, bipolar disorder, borderline personality disorder fibromyalgia reflux anxiety, post traumatic stress disorder Raynaud's and irritable bowel, who presents for a number symptoms which have been present for couple weeks. She says she called her clinic this morning and was advised to come to the ER. She notes brain fog, memory problems, generalized weakness, tingling in her legs, and chest pain. She also notes diffuse joint pains without swelling or redness. She does not complain of fevers, nausea, vomiting, shortness of breath, swelli ng or pain in her legs, she quit drinking a couple of years ago, denies any tobacco or other substance use. Related Data Home Medications ?Medication ?Instructions ?Recorded ?Confirmed duloxetine 60 mg capsule,delayed 60 mg PO QDAY 11/02/21 06/20/24 release naltrexone 50 mg tablet 50 mg PO QAM 05/29/22 06/20/24 cariprazine 6 mg capsule 6 mg PO QDAY 09/25/22 06/20/24 trazodone 100 mg tablet 100 - 150 mg PO QPM PRN insomnia 09/25/22 06/20/24 cariprazine 1.5 mg capsule 1.5 mg PO DAILY 02/08/23 06/20/24 (Vraylar) levonorgestrel (Mirena) 1 device intrauterine ONCE 04/04/23 06/20/24 cholecalciferol (vitamin D3) 50 50 mcg PO DAILY 10/29/23 06/20/24 mcg (2,000 unit) capsule lamotrigine 25 mg tablet 50 mg PO DAILY 10/29/23 06/20/24 adapalene 0.1 % topical gel 1 applic topical QDAY 05/29/24 06/20/24 hydroxyzine HCl 25 mg tablet 25 - 50 mg PO DAILY PRN anxiety 05/30/24 06/20/24 nicotine 7 mg/24 hr daily 2 patch transdermal Q24H 05/30/24 06/20/24 transdermal patch Previous Rx's ?Medication ?Instructions ?Recorded nebulizers #1 ea 08/06/22 famotidine 40 mg tablet 40 mg PO QHS #90 tabs 03/30/23 meloxicam 15 mg tablet 15 mg PO QAM #90 tabs 09/21/23 oxycodone 5 mg tablet 5 - 10 mg (1 - 2 x 5 mg) PO Q6H 12/23/23 PRN pain #10 tabs pregabalin 300 mg capsule 300 mg PO BID #60 caps 01/07/24 acyclovir 400 mg tablet 400 mg PO BID #180 tabs 02/01/24 acyclovir 800 mg tablet 800 mg PO TID #6 tabs 02/01/24 minocycline 100 mg capsule 200 mg (2 x 100 mg) PO QDAY #60 03/11/24 caps quetiapine 50 mg tablet 50 mg PO QPM #90 tabs 03/28/24 ondansetron 8 mg disintegrating 8 mg PO BID PRN nausea and 05/05/24 tablet vomiting #30 tabs albuterol sulfate 2.5 mg/3 mL 2.5 mg (3 mL) inhalation Q6H PRN 05/13/24 (0.083 %) solution for nebulization shortness of breath or wheezing #90 mL albuterol sulfate 90 mcg/actuation 2 puff inhalation Q6H PRN 06/01/24 aerosol inhaler shortness of breath or wheezing #8.5 grams fluticasone 250 mcg-salmeterol 50 1 inh inhalation BID #60 ea 06/01/24 mcg/dose blistr powdr for inhalation (Advair Diskus) upadacitinib 15 mg tablet,extended 15 mg PO QDAY #30 tabs 06/01/24 release 24 hr (Rinvoq) polyethylene glycol 3350 17 17 g PO QDAY #850 grams 06/23/24 gram/dose oral powder (Miralax) Allergies Allergy/AdvReac Type Severity Reaction Status Date / Time bupropion (From Wellbutrin) Allergy Severe manic Verified 07/03/24 13:27 episode latex Allergy Intermediate Verified 07/03/24 13:27 morphine Allergy Intermediate blisters Verified 07/03/24 13:27 naproxen Allergy Intermediate Verified 07/03/24 13:27 piroxicam Allergy Intermediate blisters Verified 07/03/24 13:27 Review of Systems Status of ROS: Reports: 10 or more systems reviewed and unremarkable except as noted in History and below [facility] Medical History Insomnia ?G47.00 - Insomnia, unspecified (ICD-10) Mastalgia ?N64.4 - Mastodynia (ICD-10) Major depression, recurrent ?F33.9 - Major depressive disorder, recurrent, unspecified (ICD-10) Mild persistent asthma ?J45.30 - Mild persistent asthma, uncomplicated (ICD-10) Telogen effluvium ?L65.0 - Telogen effluvium (ICD-10) Condyloma acuminata ?A63.0 - Anogenital (venereal) warts (ICD-10) Social phobia (08/28/13) ?F40.10 - Social phobia, unspecified (ICD-10) Rheumatoid arthritis ?M06.9 - Rheumatoid arthritis, unspecified (ICD-10) Raynaud's disease (01/23/11) ?I73.00 - Raynaud's syndrome without gangrene (ICD-10) Posttraumatic stress disorder (06/10/20) ?F43.10 - Post-traumatic stress disorder, unspecified (ICD-10) Nodulocystic acne ?L70.0 - Acne vulgaris (ICD-10) Migraine headache ?G43.909 - Migraine, unspecified, not intractable, without status migrainosus (ICD-10) Irritable bowel syndrome ?K58.9 - Irritable bowel syndrome without diarrhea (ICD-10) Hyperlipidemia ?E78.5 - Hyperlipidemia, unspecified (ICD-10) History of colonic polyps (2020) ?Z86.010 - Personal history of colonic polyps (ICD-10) History of benzodiazepine use ?Z87.898 - Personal history of other specified conditions (ICD-10) Hidradenitis suppurativa (06/06/17) ?L73.2 - Hidradenitis suppurativa (ICD-10) Generalized anxiety disorder (08/28/13) ?F41.1 - Generalized anxiety disorder (ICD-10) Gastroesophageal reflux disease ?K21.9 - Gastro-esophageal reflux disease without esophagitis (ICD-10) Fibromyalgia (08/20/09) ?M79.7 - Fibromyalgia (ICD-10) Chronic vaginitis ?N76.1 - Subacute and chronic vaginitis (ICD-10) Borderline personality disorder (11/01/11) ?F60.3 - Borderline personality disorder (ICD-10) Bipolar I disorder ?F31.9 - Bipolar disorder, unspecified (ICD-10) Allergic rhinitis (04/16/06) ?J30.9 - Allergic rhinitis, unspecified (ICD-10) Surgical History H/O arthroscopy of shoulder (07/12/23) ?Z98.890 - Other specified postprocedural states (ICD-10) History of hernia repair ?Z98.890 - Other specified postprocedural states (ICD-10) ?Z87.19 - Personal history of other diseases of the digestive system (ICD-10) History of surgery on wrist (1983) ?Z98.890 - Other specified postprocedural states (ICD-10) History of sinus surgery (2010) ?Z98.890 - Other specified postprocedural states (ICD-10) History of ankle fusion (1999) ?Z98.1 - Arthrodesis status (ICD-10) Family History Mother Breast cancer Colon cancer Diabetes Father High blood pressure Thyroid cancer Maternal Grandmother Diabetes Lung cancer Coronary artery disease Paternal Grandmother High blood pressure Stroke Paternal Grandfather Coronary artery disease Social History Narrative: Alcohol abuse- most recent tx 07/2020, inpatient treatment multiple times Alcoholism in recovery- most recently spent 30 days at [facility], released 03/22/20 - [place], 4 kids, non-smoker, alcoholic, no other drug use, sober since March 2023 What is your current living situation?: I presently have a place to live Problems where you live: no known problems In the past 12 months, utilities in danger of being shut off: no In past 12 months, lack of transportation kept you from medical appts, meetings, work, or getting things needed for daily living: no In the past 12 mos, have been you worried that your food would run out before you had money to buy more?: never true In the past 12 mos, the food you bought just didn't last and you didn't have money to buy more?: never true Smoking Status: Current every day smoker What tobacco products do you use: cigarettes Do you use any of these nicotine containing products: Vaping Products Second hand tobacco smoke exposure: No How often do you have a drink containing alcohol: never How often do you have six or more drinks on one occasion: Never AUDIT-C Alcohol total score: 0 Non-prescribed substance use: marijuana (any form) Caffeine: Yes How often does anyone, including family, friends and others, physically hurt you : never How often does anyone, including family, friends and others, insult or talk down to you: never How often does anyone, including family, friends and others, threaten you with harm: never How often does anyone, including family, friends and others, scream or curse at you: never service: No Exam Narrative: Exam Narrative: Vital signs reviewed In general, alert, nontoxic Head: Normocephalic, atraumatic. Eyes: Sclera clear. Pupils equal and reactive. ENT: Mucous membranes moist. Neck: Supple without adenopathy. Heart: Regular rate and rhythm without murmur. Lungs: Clear. No increased work of breathing, crackles or wheezes. Abdomen: Soft, nontender to palpation. Extremities: Well perfused, pulses intact. No significant edema. Neurologic: Alert, conversant. Speech fluent, face symmetric. Moves all extremities equally. Gait is stable. No ataxia. Strength is 5 of 5 in bilateral upper and lower extremities. Cerebellar function intact by finger- nose testing. Skin: Warm, dry well perfused. Affect: Normal. Const: Vital Signs, click to edit/add: Vital Signs - 24 hr 07/03/24 13:27 Temperature 98.1 F Pulse Rate [Pulse Oximeter] 86 Respiratory Rate 16 Blood Pressure [Ri ght Upper Arm] 122/73 Pulse Oximetry 98 Oxygen Delivery Me thod Room Air Course Course ED Course: Patient presents with a number of symptoms, some bilateral like tingling, generalized weakness without focal neurologic findings, brain fog and memory problems without any evidence of specific neurologic deficits, and chest pain. She is PERC negative, I do not think this likely represents a PE and I do not think she needs a D-dimer. I will do a CT scan of the head, chest x-ray, and routine labs. Discussed with her that we may not come up with a specific explanation for her symptoms but will rule out life-threatening causes. I do not think this represents acute stroke. All of her tests here today are within normal limits. By my review, CT scan of the head and chest x-ray do not show any acute findings. Radiology reports are reviewed and also negative. Troponin is 0, CRP and sed rate are normal. Electrolytes are all normal including magnesium. Her TSH is also normal. Discussed with her that I do not have a clear explanation for her symptoms at this time, but that we have ruled out emergent causes. I would recommend primary care follow-up next week for recheck. Return at any time for acute worsening or new symptoms. Vital Signs Vital signs: Initial Vital Signs Temperature 98.1 F 07/03/24 13:27 Temperature Source Temporal Artery Scan 07/03/24 13:27 Pulse Rate 86 07/03/24 13:27 Respiratory Rate 16 07/03/24 13:27 Blood Pressure 122/73 07/03/24 13:27 Blood Pressure Mean 89 07/03/24 13:27 Pulse Oximetry 98 07/03/24 13:27 Oxygen Delivery Method Room Air 07/03/24 13:27 Vital Signs Temperature 98.1 F 07/03/24 13:27 Pulse Rate 86 07/03/24 13:27 Respiratory Rate 16 07/03/24 13:27 Blood Pressure 122/73 07/03/24 13:27 Pulse Oximetry 98 07/03/24 13:27 Oxygen Delivery Method Room Air 07/03/24 13:27 Temperature 98.1 F 07/03/24 13:27 Pulse Rate 86 07/03/24 13:27 Respiratory Rate 16 07/03/24 13:27 Blood Pressure 122/73 07/03/24 13:27 Pulse Oximetry 98 07/03/24 13:27 Oxygen Delivery Method Room Air 07/03/24 13:27 Medical Decision Making Lab Data Lab results reviewed: Yes I reviewed the patient's lab results Labs: Lab Results 07/03/24 07/03/24 Range/Units 13:43 13:50 WBC 6.50 (4.50-11.00) K/uL RBC 4.15 (4.00-5.20) m/uL Hgb 13.1 (12.0-16.0) gm/dL Hct 39.0 (33.0-51.0) % MCV 94 (80-100) fL MCH 32 (26-34) pg MCHC 34 (32-36) gm/dL RDW Coeff of Dimitri 12.8 (11.5-15.5) % Plt Count 291 (140-440) K/uL Neut % (Auto) 70.7 (42.0-72.0) % Lymph % (Auto) 22.5 (20-44) % Towns % (Auto) 4.5 (0.0-11.0) % Eos % (Auto) 1.5 (0.0-7.0) % Baso % (Auto) 0.6 (0.0-3.0) % Neut # (Auto) 4.60 (1.7-7.0) K/uL Lymph # (Auto) 1.46 (0.90-2.90) K/uL Towns # (Auto) 0.30 (0.00-0.90) K/UL Eos # (Auto) 0.10 (0.00-0.50) K/uL Baso # (Auto) 0.04 (0.00-0.30) K/uL Abs Immat Gran (auto) 0.01 (0.00-0.30) K/uL Imm/Tot Granulo (auto) 0.2 % ESR 2 (2-20) mm/hr Sodium 134 L (135-149) mmol/L Potassium 3.8 (3.6-5.1) mmol/L Chloride 102 (96-114) mmol/L Carbon Dioxide 26 (20-32) mmol/L Anion Gap 6 L (7-15) mEq/L BUN 13 (5-24) mg/dL Creatinine 0.7 (0.5-1.5) mg/dL Estimated Creat Clear 101.81 Estimated GFR 111 ml/min Glucose 90 (60-115) mg/dL Calcium 9.2 (8.4-10.6) mg/dL Magnesium 1.7 (1.5-2.6) mg/dL Total Bilirubin 0.5 (0.1-1.5) mg/dL Direct Bilirubin 0.3 (0.0-0.5) mg/dL AST 32 (12-35) U/L ALT 26 (4-35) U/L Alkaline Phosphatase 53 (40-150) U/L C-Reactive Protein < 0.5 L (0.5-1.0) mg/dL Total Protein 6.6 (6.0-8.3) g/dL Albumin 4.5 (3.3-5.0) g/dL TSH 0.839 (0.270-4.200) uIU/mL POC Troponin I 0.00 L (0.01-0.04) ng/ml Imaging Data CT scan - head: Attestation: I have reviewed the pertinent imaging results. Radiologist's impression: Patient: Marlin Plummer MR#: [id number] : 1980 Acct:[id number] Loc: ED Service Date: 07/03/[address]: Ordering Physician: Allyn Nixon M.D. Date of Service: 07/03/24 Procedure(s): CT head/brain wo con Accession Number(s): [id number] cc: Allyn Nixon M.D.; Willy Serrano M.D.~ For Patients: As a result of the Century Cures Act, medical imaging exams and procedure reports are released immediately into your electronic medical record. You may view this report before your referring provider. If you have questions, please contact your health care provider. INDICATION: Memory changes, lower extremity paresthesias, weakness. TECHNIQUE: Noncontrast CT of the head with multiplanar reconstruction utilizing bone and soft tissue algorithms. COMPARISON: CT head dated 03/19/2023. FINDINGS: No acute intracranial hemorrhage. The rodriguez-white matter interface is preserved. The ventricles are normal and unchanged in size. No abnormal extra-axial fluid collection is identified. The calvarium is intact. The globes are symmetric. The imaged paranasal sinuses and mastoid air cells are clear. IMPRESSION: No acute intracranial abnormality. Please note that all CT scans at this facility use dose modulation, iterative reconstruction, and/or weight-based dosing when appropriate to reduce radiation dose to as low as reasonably achievable. Dictated by Audi Luz MD @ 07/03/2024 2:35:28 PM Chest x-ray: Attestation: I have reviewed the pertinent imaging results. Radiologist's impression: Patient: Marlin Plummer MR#: [id number] : 1980 Acct:[id number] Loc: ED Service Date: 07/03/[address]: Ordering Physician: Allyn Nixon M.D. Date of Service: 07/03/24 Procedure(s): XR chest 1V Accession Number(s): [id number] cc: Allyn Nixon M.D.; Willy Serrano M.D.~ For Patients: As a result of the Century Cures Act, medical imaging exams and procedure reports are released immediately into your electronic medical record. You may view this report before your referring provider. If you have questions, please contact your health care provider. Indication: Chest pain Technique: Chest 1 view Comparison: None Findings/Impression: Cardiovascular and mediastinum: Heart size and vasculature are normal in caliber and appearance. Lungs and pleural space: Lungs are clear. No sign of infiltrate or mass. No sign of pleural effusion. No pneumothorax. Bones and soft tissues: No acute findings. Dictated by Angel Rodriguez MD @ 07/03/2024 2:30:29 PM Discharge Plan Discharge Clinical Impression: Multiple complaints Patient Disposition: Home, Self-Care Condition: Stable Additional Instructions: Your test today, including blood work, CT scan of the head, chest x-ray and EKG, are all reassuring. There are no acute abnormalities. Your thyroid test is the only test I do not have back yet, and if there is something that we need to address there we will call you. I would recommend primary care follow-up in a week or so for recheck and to see if any additional testing is indicated. If you are worsening or have significant new symptoms feel free to return to the ER at any time. Prescriptions: No Action duloxetine 60 mg capsule,delayed release(DR/EC) 60 mg PO QDAY Patient Comments: TAKE ONE CAPSULE BY MOUTH EVERY MORNING naltrexone 50 mg tablet 50 mg PO QAM Patient Comments: TAKE 1/2 TABLET BY MOUTH THREE TIMES A DAY Mirena 21 mcg/24 hours (8 yrs) 52 mg intrauterine device 1 device intrauterine ONCE Rx Instructions: as a single dose cholecalciferol (vitamin D3) 50 mcg (2,000 unit) capsule 50 mcg PO DAILY lamotrigine 25 mg tablet 50 mg PO DAILY cariprazine 6 mg capsule 6 mg PO QDAY trazodone 100 mg tablet 100 - 150 mg PO QPM PRN (Reason: insomnia) Vraylar 1.5 mg capsule 1.5 mg PO DAILY acyclovir 400 mg tablet 400 mg PO BID Qty: 180 1RF Rx Instructions: suppressive treatment acyclovir 800 mg tablet 800 mg PO TID Qty: 6 3RF Rx Instructions: 800mg po TID x2days for episodic treatment adapalene 0.1 % gel 1 applic topical QDAY nicotine 7 mg/24 hr patch 24 hour 2 patch transdermal Q24H hydroxyzine HCl 25 mg tablet 25 - 50 mg PO DAILY PRN (Reason: anxiety) albuterol sulfate 90 mcg/actuation HFA aerosol inhaler 2 puff inhalation Q6H PRN (Reason: shortness of breath or wheezing) Qty: 8.5 5RF Rinvoq 15 mg tablet extended release 24 hr 15 mg PO QDAY Qty: 30 2RF fluticasone propion-salmeterol [Advair Diskus] 250-50 mcg/dose blister with device 1 inh inhalation BID Qty: 60 5RF oxycodone 5 mg tablet 5 - 10 mg PO Q6H PRN (Reason: pain) Qty: 10 0RF (DME) nebulizers Misc See Rx Instructions .Route Qty: 1 0RF Rx Instructions: As directed famotidine 40 mg tablet 40 mg PO QHS Qty: 90 3RF meloxicam 15 mg tablet 15 mg PO QAM Qty: 90 1RF pregabalin 300 mg capsule 300 mg PO BID Qty: 60 5RF minocycline 100 mg capsule 200 mg PO QDAY Qty: 60 6RF quetiapine 50 mg tablet 50 mg PO QPM Qty: 90 1RF ondansetron 8 mg tablet,disintegrating 8 mg PO BID PRN (Reason: nausea and vomiting) Qty: 30 1RF albuterol sulfate 2.5 mg /3 mL (0.083 %) solution for nebulization 2.5 mg inhalation Q6H PRN (Reason: shortness of breath or wheezing) Qty: 90 0RF polyethylene glycol 3350 [Miralax] 17 gram/dose powder 17 g PO QDAY Qty: 850 4RF Follow Up/Referrals: Willy Serrano MD [Primary Care Provider] - Stand Alone Forms: [facility] Info Instructions
--- OUTSIDE RECORDS SUMMARY | 2024-07-03 14:00 | XMS_ITS | Clinical Summary ---
Author Organization [facility] Address [address], [place] [address] Care Team Providers Care Cnc Laser Operator Name Role Phone Needs Pcp, Assignment Primary Care Provider [phone] Source Comments You are receiving this document as you are listed as the primary care provider,follow-up provider, or the patient has been referred to you for consultation.This is in compliance with the Medicare and[facility] Cent[facility] EHR Incentive Program,which states Providers who transition their patient to another setting of careor provider of care or refers their patient to another provider of care shouldprovide summary care record for each transition of care or referral. schoox Allergies Active Allergy Reactions Criticality Noted Date [...] 2,03/06/2011,2007 Flu Vac Preserv Free (3+yrs) 02/04/2010 [id number] 02/26/2009 Influenza D4F4-19 02/26/2009 Influenza IIV4 (Quadrivalent ) 0.5mL (83497) 01/29/2019,12/18/2017 Influenza, Unspecified Formulation 12/31,12/18/2016,03/08/2016,2010,03/25/2008 MMR 04/02/1994 PPSV23 (Pneumovax) 12/01/2012 Td (7+ yrs) 07/21/1997 Tdap 09/01/2019,11/03/2008 Social History Tobacco Use Types Packs/Day Years Used Date Smoking Tobacco: Every Day Comments Unknown Sex and Gender Information Value Date Recorded Sex Assigned at Not on file Legal Sex Female 2:58 PM ENDOCRINOLOGY PHYSICIAN Gender Identity Not on file Sexual Orientation Not on file Last Filed Vital Signs Vital Sign Reading Time Taken Comments Blood Pressure 127/72 05/20/2020 10:45 AM ENDOCRINOLOGY PHYSICIAN Pulse 83 05/20/2020 10:45 AM ENDOCRINOLOGY PHYSICIAN Temperature 37.1 C (98.8 F) 05/20/2020 10:45 AM ENDOCRINOLOGY PHYSICIAN Respiratory Rate - - Oxygen Saturation - - Inhaled Oxygen Concentration - - Weight 79.8 kg (176 lb) 05/20/2020 10:45 AM ENDOCRINOLOGY PHYSICIAN Height 167.6 cm (5' 6) 05/20/2020 10:45 AM ENDOCRINOLOGY PHYSICIAN Body Mass Index 28.41 05/20/2020 10:45 AM ENDOCRINOLOGY PHYSICIAN Plan of Treatment Health Maintenance Due Date [...] Negative (Non Reactive) 07/12/2021 10:18 PM CDT [facility] Comment:HIV-1 p24 Antigen an d HIV-1/HIV-2 Antibody not detected Blood Venipuncture / Unknown 07/12/2021 4:17 PM CDT 07/12/2021 4:17 PM CDT us Aki Jarquin MD LAB_1 Final Resul t [facility] [address] [place] [address], [facility] from Last 3 Months or Most Recently Relevant to Health Maintenance Insurance [facility] Care Teams Cnc Laser Operator Relationship Specialty Start Date End Date Needs Pcp, [place], [place] [id number] PCP - General 05/20/20
--- OUTSIDE RECORDS SUMMARY | 2024-07-03 14:01 | XMS_ITS | Clinical Summary ---
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 Not on file Not on file Not [...] VACU Livin g Alana McInt [place] Delivery Location:[facility] 2004 Term 37w 0d 2.38 kg (5 lb 4 oz) M VAGINA L VACU Livin g 9 9 Kristo pher McInt yre Delivery Location:[facility] 2006 SAB 10w 0d SPONTA NEOUS Demis e Delivery Location:[facility] Comments:D&C 2008 36w 5d 3.12 kg (6 lb 14 oz) F Vag Livin g 8 9 Makenz ie McInt yre Delivery Location:[facility] Last Filed Vital Signs Vital Sign Reading [...] ANTI HIV 1/2 Routine 03/25/2008 10:58 AM HIM SPECIALIST Supervision of Other Normal (HC) from Last 3 Months or Most Recently Relevant to Health Maintenance Results * LAB TRACKING EVENT (06/20/2024 2:55 PM CDT) Other (Other) Client Collect / Unknown 06/20/2024 2:55 PM CDT 06/23/2024 1:10 PM CDT Sharmila Ram MD LAB BILL ONLY Final Resu lt [facility] [address] [place] [address], * PATH TISSUE EXAM (06/20/2024 2:55 PM CDT) Case Report Pathology Report Case: [id number] Authorizing Provider: Sharmila Ram MD Collected: 06/20/2024 1455 Ordering Location: [facility] Received: 06/23/2024 1356 Pathologist: Rahel Chauhan MD Specimens: A) - Cervical Biopsy, 3 o'clock B) - Endocervical Curettings 06/24/2024 2:15 PM CDT [facility] Final Diagnosis A) CERVIX, 3 [...] and invasive carcinoma 06/24/2024 2:15 PM CDT [facility] at 1415 CDT Clinical Information LSIL Pap, positive high-risk HPV non-16/18. Has Mirena IUD. 06/24/2024 2:15 PM CDT [facility] Gross Description A) Received in [...] cassette. SJM 06/23/2024 06/24/2024 2:15 PM CDT [facility] Microscopic Description The final diagnosis is based on microscopic examination of appropriate sections of all specimens. 06/24/2024 2:15 PM CDT [facility] Additional Information Interpreted at [facility] - [address], [place] [address] 06/24/2024 2:15 PM CDT [facility] Other (Cervical Biopsy) 06/20/2024 2:55 PM CDT 06/23/2024 1:56 PM CDT Specimen (specimen) (Endocervical Curettings) 06/20/2024 2:55 PM CDT 06/23/2024 1:56 PM CDT us Sharmila Ram MD PATHOLOGY/CYTOLOGY Final R esult Performing Organization Address City/[facility]/ZIP Co de Phone Number [facility] [address] [place] [address], * HPV HIGH RISK (08/09/2021 12:45 PM CDT) TYPE 16 Negative Negative 08/11/2021 10:50 AM CDT [facility] TYPE 18 Negative Negative 08/11/2021 10:50 AM CDT [facility] OTHER HIGH RISK TYPES Negative Negative 08/11/2021 10:50 AM CDT [facility] Other (Cervical/Vagina l) 08/09/2021 12:45 PM CDT 08/10/2021 7:52 AM CDT Narrative [facility] - 08/11/2021 10:50 AM CDT HPV types 16, 18, 31, 33, 35, 39, 45, 51, 52, 56, 58, 59, 66 and 68 DNA were undetectable or below the pre-set threshold. Methodology: [employer] 4800 HPV Test us Willy Serrano MD MICROBIOLOGY Final Re sult [facility] [address] [place] [address], * ANTI HIV 1/2 (03/25/2008 10:58 AM HIM SPECIALIST) ANTI HIV 1/2 Non-reacti ve [facility] Blood specimen (specimen) BLOOD SPECIMEN / Unknown 03/25/2008 10:58 AM HIM SPECIALIST 03/25/2008 10:51 AM HIM SPECIALIST us Willy Serrano MD SEND OUTS Final Re sult [facility] [place]NAL ZIP [id number] [address] from Last 3 Months or Most Recently Relevant to Health Maintenance Insurance [place] [employer] [facility] Advance Directives * Full Code (Latest Code [...] 9:46 PM 02/11/2018 4:44 PM Care Teams Air Bag Builder Relationship Specialty Start Date End Date Willy Serrano MD [address] [place] [id number] PCP - General Family Practice 03/30/21
[2024-07-03 14:17] LABS: Albumin* 4.5 g/dL (3.3-5.0); Chloride* 102 mmol/L (96-114); Sodium* 134 mmol/L (135-149)
[2024-07-03 14:18] LABS: Potassium* 3.8 mmol/L (3.6-5.1)
[2024-07-03 14:20] LABS: Alanine Aminotransferase* 26 U/L (4-35); Alkaline Phosphatase* 53 U/L (40-150); Anion Gap 6 mEq/L (7-15); Aspartate Amino Transferase* 32 U/L (12-35); Bilirubin Direct* 0.3 mg/dL (0.0-0.5); Bilirubin Total* 0.5 mg/dL (0.1-1.5); Blood Urea Nitrogen* 13 mg/dL (5-24); Carbon Dioxide* 26 mmol/L (20-32); Creatinine* 0.7 mg/dL (0.5-1.5); Est. Creatinine Clearance* 101.81; Estimated Glomerular Filt Rate 111 ml/min; Total Protein* 6.6 g/dL (6.0-8.3)
[2024-07-03 14:21] LABS: Calcium* 9.2 mg/dL (8.4-10.6); Glucose* 90 mg/dL (60-115); Magnesium* 1.7 mg/dL (1.5-2.6)
[2024-07-03 14:24] LABS: Basophils Absolute Auto 0.04 K/uL (0.00-0.30); Basophils Percent Auto 0.6 % (0.0-3.0); C Reactive Protein* < 0.5 mg/dL (0.5-1.0); Eosinophils Percent Auto 1.5 % (0.0-7.0); Hemoglobin* 13.1 gm/dL (12.0-16.0); Immature Granulocytes Abs Auto 0.01 K/uL (0.00-0.30); Immature Granulocytes Pct Auto 0.2 %; Lymphocytes Absolute Auto 1.46 K/uL (0.90-2.90); Lymphocytes Percent Auto 22.5 % (20-44); Mean Corpuscular HGB Conc 34 gm/dL (32-36); Mean Corpuscular Hemoglobin 32 pg (26-34); Mean Corpuscular Volume 94 fL (80-100); Monocytes Percent Auto 4.5 % (0.0-11.0); Neutrophils Percent Auto 70.7 % (42.0-72.0); Platelet Count* 291 K/uL (140-440); RDW Coefficient of Variation % 12.8 % (11.5-15.5); Red Blood Count* 4.15 m/uL (4.00-5.20)
[2024-07-03 14:25] LABS: Slide Review Reflex No
[2024-07-03 15:13] LABS: Erythrocyte SedimentationRate* 2 mm/hr (2-20)
[2024-07-03 15:20] LABS: TSH With Reflex to FT4* 0.839 uIU/mL (0.270-4.200)
== END 2024-07-03 15:53 | disposition home or self-care (01) ==
PROVIDERS: Emergency Provider Emergency Medicine; PCP Family Medicine
DX: R07.9 Chest pain, unspecified (principal); R20.2 Paresthesia of skin; R41.3 Other amnesia; R53.1 Weakness
CPT/HCPCS: 36415; 70450; 71045; 80053; 80076; 83735; 84443; 84484; 85025; 85651; 86140; 93005; 99284; 99285

== ENCOUNTER 2024-08-01 11:59 | Outpatient (CLI) | payer BC, SELFPAY | END 2024-08-01 12:00 | disposition home or self-care (01) | PROVIDERS: PCP Family Medicine; Visit Provider Family Medicine | DX: R00.2 Palpitations (principal); F31.9 Bipolar disorder, unspecified; Z51.81 Encounter for therapeutic drug level monitoring | CPT/HCPCS: 80175; 84439; 84443 ==

== ENCOUNTER 2024-10-27 12:43 | Outpatient (CLI) | payer BC, SELFPAY ==
--- NOTE | 2024-10-27 13:00 | MR_ITS ---
EXAM: MRI EXAMINATION OF THE RIGHT SHOULDER CLINICAL INFORMATION: Right shoulder pain. No history of surgery to this area. Concern for rotator cuff tear. TECHNICAL INFORMATION: Coronal STIR as well as axial, sagittal and coronal PD and T2-weighted images acquired. No prior studies for comparison. INTERPRETATION: Bones: There is no Hill-Sachs impaction deformity. No other occult fracture or osseous contusion. No other bone marrow edema pattern. Rotator Cuff: Series 5 images 14 and 15 demonstrate bursal sided fraying and irregularity involving the mid to anterior supraspinatus tendon insertion, without a more discrete tendon tear. Abnormal thickening and signal heterogeneity in keeping with moderate infraspinatus tendinopathy. The teres minor tendon is intact. There is a 1.1 cm craniocaudal segment of poorly defined intrasubstance and deep surface fiber partial tear involving the superior subscapularis tendon. No appreciable rotator cuff muscle belly atrophy. Coracoacromial arch: There is no discrete subacromial osseous spur. The bony acromiohumeral interval is measuring 6 mm. There is no thickening identified of the coracoacromial ligament. 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 Undersurface spurring results in mild underlying supraspinatus deformity. Mild thickening and edema signal involves the subacromial/subdeltoid bursa areas. Biceps tendon: The long head biceps tendon is intact and nondisplaced from the bicipital groove. No evidence for a tendon tear or any appreciable changes of tendinopathy. Glenohumeral joint and labrum: There is a small glenohumeral joint effusion. No discrete loose body within the joint. Osteochondral surfaces appear relatively preserved. No discrete SLAP tear. No other definite evidence for labral tear. No discrete paralabral cyst is identified. CONCLUSION: 1. Tendinopathy with bursal sided fraying and irregularity involves the mid to anterior supraspinatus tendon insertion. Additional moderate infraspinatus tendinopathy. 2. There is a small to moderate-sized segment of poorly defined intrasubstance and deep surface fiber partial tear involving the superior subscapularis tendon. 3. 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 4. Mild narrowing of the acromiohumeral interval with mild subacromial/subdeltoid bursal inflammation. 5. Unremarkable and intact long head biceps tendon. 6. No appreciable glenohumeral chondromalacia. There is no definite labral tear. KES Electronically signed on 10/27/2024 3:19:00 PM by Ryan Bass M.D.
== END 2024-10-27 12:44 | disposition home or self-care (01) ==
LOC: MRI 12:45
PROVIDERS: PCP Family Medicine; Visit Provider Orthopaedic Surgery
DX: M25.511 Pain in right shoulder (principal); M75.101 Unspecified rotator cuff tear or rupture of right shoulder, not specified as traumatic; M19.011 Primary osteoarthritis, right shoulder
CPT/HCPCS: 73221

== ENCOUNTER 2024-11-10 14:01 | Outpatient (CLI) | payer BC, SELFPAY | END 2024-11-10 14:02 | disposition home or self-care (01) | PROVIDERS: PCP Family Medicine; Visit Provider Family Medicine | DX: Z01.818 Encounter for other preprocedural examination (principal) | CPT/HCPCS: 80048; 85025 ==

== ENCOUNTER 2024-11-18 06:34 | Day surgery (SDC) | payer BC, SELFPAY ==
[2024-11-18] VITALS (12 sets, daily range): BP systolic 91–119; BP diastolic 47–68; PULSE 64–94; RESP 12–16; TEMP 36.4–36.9; O2SAT 96–100; BMI 24.3
[2024-11-18] MEDS: SODIUM CHLORIDE 0.9 % (FLUSH) 10 ML SYRINGE IVF (07:10)
[2024-11-18] MEDS: LACTATED RINGERS 1000 ML 1,000 ML 100 ML IV ×2 (07:10→08:16)
[2024-11-18] MEDS: OXYCODONE (CR) 10 MG TAB.ER.12H PO (07:30)
[2024-11-18] MEDS: ACETAMINOPHEN 500 MG TABLET 1000 MG PO (07:30)
[2024-11-18] MEDS: CELECOXIB 200 MG CAPSULE PO (07:30)
[2024-11-18] MEDS: MIDAZOLAM HCL 1 MG/ML inj IVP (07:33)
--- NOTE | 2024-11-18 07:33 | SUR.PREOP ---
TIME?OUT:?0730 PT/RN/MDA?VERIFICATION?OF?SURGICAL?SITE,?PROCEDURE,?AND?CONSENT OBTAINED?PRIOR?TO?INVASIVE?PROCEDURE.
[2024-11-18] MEDS: SCOPOLAMINE 1 MG/3 DAY PATCH 1 PATCH TRANSDERMA (07:36)
--- NOTE | 2024-11-18 08:30 | W.PM.NB ---
Nerve Block Nerve Block Time Seen by Provider: 07:35 Date Seen: 11/18/24 Type of block requested by surgeon for post-operative analgesia: supraclavicular Side: right Time out performed: Yes Verification of patient name: Yes Verification of date of : Yes Site marking: site marked Name of person performing procedure: Arturo Continuous monitoring Was continuous monitoring of O2 sat, B/P, property assessment monitor, recorded every 15 minutes?: Yes Procedure Checklist: sterile prep, needles and gloves Ultrasound guided. Images saved: Yes Medications given in 5ml increments after negative aspiration: Marcaine %: 0.25 mL: 5 and Exparel mL: 10 Needle gauge: 22 Patient tolerated procedure well: Yes Block Charges Block Charge (with Pro Fee): Brachial Plexus Use of Ultrasound Machine for Block: Yes- US Guidance/pain block
--- NOTE | 2024-11-18 08:31 | P.ANES_ITS ---
Anesthesia Charges Start Date/Time Anesthesia Start Date: 11/18/24 Anesthesia Start Time: 07:52 Stop Date/Time Anesthesia Stop Date: 11/18/24 Anesthesia Stop Time: 09:13 Coding CPT Codes CPT Codes: ANESTH SURGERY OF SHOULDER - 77942 ([id number]) P2 - PATIENT W/MILD SYST DISEASE, QK - CELLARS SUPERVISOR 2-4 CNCRNT ANES PROC, QX - AUTOMATION CONTROLS SPECIALIST SVC W/ MD MED DIRECTION
--- NOTE | 2024-11-18 08:31 | W.ANESCHARGE ---
Anesthesia Charges Start Date/Time Anesthesia Start Date: 11/18/24 Anesthesia Start Time: 07:52 Stop Date/Time Anesthesia Stop Date: 11/18/24 Anesthesia Stop Time: 09:13 Coding CPT Codes CPT Codes: ANESTH SURGERY OF SHOULDER - 65408 ([id number]) P2 - PATIENT W/MILD SYST DISEASE, QK - AIRCRAFT TIME CLERK 2-4 CNCRNT ANES PROC, QX - OFFICE MACHINE INSPECTOR SVC W/ MD MED DIRECTION
--- NOTE | 2024-11-18 08:59 | PM.ORPRC ---
Procedure Note Date of procedure: 11/18/24 Procedure: PREOPERATIVE DIAGNOSIS: Right shoulder subacromial/subdeltoid bursitis, subscap fraying, AC joint arthrosis POSTOPERATIVE DIAGNOSIS: Right shoulder subacromial/subdeltoid bursitis, subscap fraying, AC joint arthrosis NAME OF OPERATION: Right shoulder arthroscopic limited glenohumeral joint debridement, subacromial decompression, distal clavicle excision SURGEON: Abebe Tse MD INDUSTRIAL MAINTENANCE INSTRUCTOR: Jia Xiong PA-C ANESTHESIA: Supraclavicular block plus general endotracheal ESTIMATED BLOOD LOSS: 5 mL COMPLICATIONS: None SPECIMENS: None DRAINS: None PREOPERATIVE ANTIBIOTICS: Ancef 1 g INDICATIONS: The patient is a 44-year-old with a history of right shoulder pain secondary to the above diagnoses. Despite appropriate non operative management, they continue to have symptoms. Operative intervention was recommended. The risks, benefits and expected outcomes were discussed in detail. These included but were not limited to: Infection, bleeding, injury to blood vessel or nerve, venous thromboembolism. All questions were answered to their satisfaction. PROCEDURE: A supraclavicular block was placed by Anesthesia. General anesthesia was administered. The patient was placed in the high beach chair position. The right shoulder was prepped and draped in the usual sterile fashion. The glenohumeral joint was infiltrated with 20 mL of normal saline with epinephrine. The posterior portal was established, the arthroscope was introduced. The anterior portal was established, Diagnostic arthroscopy was performed with findings as follows: The biceps and biceps anchor are intact. The anterior, posterior and superior labrum show age-appropriate degenerative fraying. Articular surfaces on the humeral head and glenoid are normal. There are no loose bodies. Upper border of the insertion of the subscap has some degenerative fraying. The undersurface of the supraspinatus is pristine. A minimal amount of the superior labrum was debrided with the shaver. Likewise, the upper border the insertion of the subscap was debrided with the shaver. This does not result in high-grade partial-thickness tearing of the subscap. The arthroscope was placed in the subacromial space, the lateral portal was established. The Arthrex Buckner was used to dissect the acromion free. The CA ligament was recessed off the anterior acromion, the AC joint was exposed. The acromioplasty was performed with the bur in the posterior portal. The bur was then placed in the lateral portal and the lateral and anterior aspect of the acromion were resected. The undersurface of the distal clavicle was resected through the lateral portal. Finally, the bur was placed in the anterior portal and the remainder of the distal clavicle was resected for a total of 10 mm. Again, the color of the bone was noted to be brownish or marcos in color, very similar to the distal clavicle findings in the other shoulder. This is felt to be a systemic issue with the bone and not a local process. It may be metabolic, that is exposure to a toxin (smoking tobacco), not likely pathologic. An accessory anterolateral portal was placed. The subacromial/subdeltoid bursa was aggressively debrided. The bursal surface of the rotator cuff is intact. Arthroscopic instruments were removed. Skin was closed with a 3-0 Monocryl in a subcuticular fashion. A dry dressing and sling were applied. Sponge and needle counts were correct x2. The patient tolerated the procedure well. There were no apparent complications. They were carefully transferred to the hospital bed and taken to the postanesthesia care unit in satisfactory condition. PLAN: The patient will be discharged to home. Active range of motion of the shoulder will be allowed as tolerates. She may discontinue the sling when she is comfortable. She will follow up in the office next week for a wound check and an AP and transscapular Y-view of the shoulder prior to being seen.
--- NOTE | 2024-11-18 09:12 | P.ANES_ITS ---
Anesthesia Charges Start Date/Time Anesthesia Start Date: 11/18/24 Anesthesia Start Time: 07:52 Stop Date/Time Anesthesia Stop Date: 11/18/24 Anesthesia Stop Time: 09:13 Coding CPT Codes CPT Codes: ANESTH SURGERY OF SHOULDER - 17453 ([id number]) QK - BOXING INSPECTOR 2-4 CNCRNT ANES PROC, QX - RIPPLER SVC W/ MED DIRECTION
--- NOTE | 2024-11-18 09:12 | W.ANESCHARGE ---
Anesthesia Charges Start Date/Time Anesthesia Start Date: 11/18/24 Anesthesia Start Time: 07:52 Stop Date/Time Anesthesia Stop Date: 11/18/24 Anesthesia Stop Time: 09:13 Coding CPT Codes CPT Codes: ANESTH SURGERY OF SHOULDER - 07571 ([id number]) QK - RECREATION THERAPY DIRECTOR 2-4 CNCRNT ANES PROC, QX - CUSTOMER SUPPORT SPECIALIST SVC W/ MED DIRECTION
== END 2024-11-18 10:53 | disposition home or self-care (01) ==
LOC: OR 06:34
PROVIDERS: PCP Family Medicine; Visit Provider Orthopaedic Surgery
PROC: (CPT 23412; principal; 2024-11-18 08:00)
DX: M75.51 Bursitis of right shoulder (principal); M19.011 Primary osteoarthritis, right shoulder; G89.18 Other acute postprocedural pain
CPT/HCPCS: 29826; 29824; 29822; 01630; 64415; 76942; A9270; J0665; J0666; J0690; J1100; J2250; J2371; J2405; J2704; J2710; J3010; J7120

== ENCOUNTER 2025-03-04 09:15 | Outpatient (CLI) | payer BC, SELFPAY | END 2025-03-04 09:16 | disposition home or self-care (01) | PROVIDERS: PCP Family Medicine; Visit Provider Family Medicine | DX: R63.5 Abnormal weight gain (principal); Z68.26 Body mass index [BMI] 26.0-26.9, adult | CPT/HCPCS: 80053; 82306; 82670; 83001; 83002; 84443; 85025 ==